=== PATIENT | male | born 1995 | race Caucasian/White ===

== ENCOUNTER 2016-07-07 19:16 | Emergency (ER) | payer BC, OTHER ==
[~2016-07-07] VITALS: Ht 188 cm; Wt 68.3 kg
[~2016-07-07 19:16] MED LIST: ACET-1256 PO; IBUP-1050 PO; INSDGIPEN SC; INSU100I2 SC; MAGN400T6 PO; OXYC1TAB3 PO
[2016-07-07 19:21] VITALS: TEMP 36.7; Ht 188 cm; Wt 68.3 kg
[2016-07-07] MEDS ORDERED: XYLOCAINE 1%/SOD BICARB 20 ML VIAL INFIL STA (21:11)
[2016-07-07 22:32] LABS: BASO % 0.9 %; BASO ABS # 0.06 K/uL (0-0.2); COMPLETE YES; EOS % 3.6 %; HEMATOCRIT 38.8 % (42-52); IG% 0.3 %; LYMPH % 44.8 %; LYMPH ABS # 3.13 K/uL (1.2-3.4); MEAN CELL VOLUME 84.5 fL (80-100); MEAN CORPUSCULAR HGB CONC 34.3 g/dl (32-36); MEAN PLATELET VOLUME 9.7 fL (7.4-10.4); MONO % 11.2 %; NEUT % 39.2 %; PLATELET COUNT 246 K/uL (130-400); RED BLOOD COUNT 4.59 M/uL (4.7-6.1); WHITE BLOOD COUNT 6.99 K/uL (4.8-10.8)
--- NOTE | 2016-07-07 22:45 | DIAGNOSTIC IMAGING REPORT ---
LEFT UPPER EXTREMITY VENOUS DOPPLER HISTORY: Heroin use, suspected abscess. R/o upper extremity DVT COMPARISON STUDY: None. FINDINGS: The left internal jugular vein is patent. There is normal flow within the left subclavian vein. There is normal flow and compressibility within the left axillary, basilic, brachial, radial, ulnar, and visualized cephalic veins. IMPRESSION: No DVT within the left upper extremity. Electronically signed by: Thiago Francis M.D. 07/07/2016 10:43 PM Dictated Date/Time: 07/07/2016 10:43 PM
--- NOTE | 2016-07-07 22:47 | DIAGNOSTIC IMAGING REPORT ---
LEFT UPPER EXTREMITY ULTRASOUND CLINICAL HISTORY: Heroin use, suspected abscess. Left AC. R/o complex abscess COMPARISON STUDY: None. FINDINGS: There is a 2.0 x 1.1 x 1.6 cm complex subcutaneous fluid collection at the left antecubital fossa. There is surrounding hyperemia and increased echogenicity within the fat consistent with inflammatory change. IMPRESSION: A 2.0 x 1.1 x 1.6 cm complex fluid collection within the left antecubital fossa. This is consistent with an abscess. Electronically signed by: Thiago Francis M.D. 07/07/2016 10:45 PM Dictated Date/Time: 07/07/2016 10:44 PM
[2016-07-07 22:48] LABS: BUN/CREATININE RATIO 15.6 (10-20); CALCIUM 9.6 mg/dl (8.5-10.1); CREATININE 0.86 mg/dl (0.60-1.40); POTASSIUM 3.3 mmol/L (3.5-5.1)
[2016-07-07] MEDS ORDERED: AMOXICIL/CLAVU 875MG HOME PACK PO STA (23:35)
[2016-07-07] MEDS ORDERED: AMOXICILLIN/CLAVULANATE TAB 875 MG TAB PO STA (23:35)
--- NOTE | 2016-07-08 00:30 | EMERGENCY ROOM VISIT NOTE ---
History First contact with patient: 20:39 Chief Complaint: OTHER COMPLAINT Stated Complaint: ABSCESS ON LEFT ARM History of Present Illness The patient is a 21 year old male who presents to the Emergency Room via private vehicle with complaints of "abscess on left arm". The patient states that 2 nights ago he was at a friend's house using what he describes as a clean needle and injected 1 bag of heroin into his left antecubital region. He believes he missed the vein. He states that last night and this morning the area became raised, hot and yellow. He rates the pain as an 8/10. He denies any red streaking up his arm. There is pain with movement of the arm in that region. This area has drained somewhat. He admits to injecting a total of 3 or 4 times in this region. He has been using heroin for 6 months. He did feel feverish earlier. He declines any help for his drug use. Tetanus is up-to- date. Review of Systems A complete 10-point Review of Systems was discussed with the patient, with pertinent positives and negatives listed in the History of Present Illness. All remaining Review of Systems questions can be considered negative unless otherwise specified. Past Medical/Surgical History Medical Problems: (1) Contusion of knee, left (2) Contusion of right knee (3) Gastroenteritis (4) Left lower lobe pneumonia (5) Pneumomediastinum (6) Type 1 diabetes Heroin Use Family History Diabetes mellitus High Blood pressure Social History Smoking Status: Never Smoker Alcohol Use: occasionally Drug Use: marijuana Marital Status: single Housing Status: lives with family Occupation Status: student Current/Historical Medications Scheduled Amoxicillin & Pot Clavulanate (Augmentin 875-125 mg), 1 TAB PO BID Insulin Glargine (Lantus Solostar), 20 UNITS SC BID Insulin Lispro (Human) (Humalog Kwikpen), 1 DOSE SC WM Magnesium Oxide (Mag-Ox), 400 MG PO DAILY Scheduled PRN Acetaminophen (Tylenol), 1,000 MG PO Q6 PRN for Pain Ibuprofen (Advil), 400 MG PO Q6 PRN for Pain Oxycodone Immediate Rel Tab (Roxicodone Ir), 1-2 TAB PO Q6 PRN for Pain Allergies Coded Allergies: Azithromycin (Unverified Allergy, Unknown, ., 07/07/16) Cephalosporins (Verified Allergy, Unknown, unknown, 07/07/16) mother Sulfa Antibiotics (Verified Allergy, Unknown, ., 07/07/16) Physical Exam Vital Signs Date Time Temp Pulse Resp B/P Pulse Ox O2 Delivery O2 Flow Rate FiO2 07/08/16 00:46 100 16 115/72 98 07/07/16 23:50 96 16 111/63 99 Room Air 07/07/16 19:21 36.7 132 20 125/80 98 Room Air Physical Exam VITAL SIGNS - Vital signs and nursing notes were reviewed. Afebrile, normotensive, tachycardic at rate of 132, saturating well on room air 98%. GENERAL -21-year-old male appearing his stated age who is in no acute distress. Communicates well with provider and answers questions appropriately. SKIN - overlying the left antecubital fossa there is a 2 cm in diameter raised erythematous region consistent with an abscess. There is no lymphogenic streaking. HEAD - NC/AT. NECK - Neck with FROM. No nuchal rigidity. LUNGS - Chest wall symmetric without accessory muscle use, intercostals retractions, or central cyanosis. Normal vesicular breath sounds CTA B/L. No wheezes, rales, or rhonchi appreciated. CARDIAC - RRR with S1/S2. No murmur, rubs, or gallops appreciated. No signs of infective endocarditis upon auscultation EXTREMITIES - No clubbing or peripheral cyanosis. No pretibial edema present. +3 /5 radial left. +5/5 strength noted in UE/LE bilaterally.Sensory intact to light touch throughout. Patellar reflexes +2/4. Medical Decision & Procedures ER Provider Diagnostic Interpretation: LEFT UPPER EXTREMITY VENOUS DOPPLER HISTORY: Heroin use, suspected abscess. R/o upper extremity DVT COMPARISON STUDY: None. FINDINGS: The left internal jugular vein is patent. There is normal flow within the left subclavian vein. There is normal flow and compressibility within the left axillary, basilic, brachial, radial, ulnar, and visualized cephalic veins. IMPRESSION: No DVT within the left upper extremity. Electronically signed by: Thiago Francis M.D. 07/07/2016 10:43 PM Dictated Date/Time: 07/07/2016 10:43 PM LEFT UPPER EXTREMITY ULTRASOUND CLINICAL HISTORY: Heroin use, suspected abscess. Left AC. R/o complex abscess COMPARISON STUDY: None. FINDINGS: There is a 2.0 x 1.1 x 1.6 cm complex subcutaneous fluid collection at the left antecubital fossa. There is surrounding hyperemia and increased echogenicity within the fat consistent with inflammatory change. IMPRESSION: A 2.0 x 1.1 x 1.6 cm complex fluid collection within the left antecubital fossa. This is consistent with an abscess. Electronically signed by: Thiago Francis M.D. 07/07/2016 10:45 PM Dictated Date/Time: 07/07/2016 10:44 PM Laboratory Results 07/07/16 21:30 Red Blood Count 4.59, Mean Corpuscular Volume 84.5, Mean Corpuscular Hemoglobin 29.0, Mean Corpuscular Hemoglobin Concent 34.3, Mean Platelet Volume 9.7, Neutrophils (%) (Auto) 39.2, Lymphocytes (%) (Auto) 44.8, Monocytes (%) (Auto) 11.2, Eosinophils (%) (Auto) 3.6, Basophils (%) (Auto) 0.9, Neutrophils # (Auto ) 2.75, Lymphocytes # (Auto) 3.13, Monocytes # (Auto) 0.78, Eosinophils # (Auto ) 0.25, Basophils # (Auto) 0.06 07/07/16 21:30 Test 07/07/16 21:30 07/07/16 23:46 White Blood Count 6.99 K/uL (4.8-10.8) Red Blood Count 4.59 M/uL (4.7-6.1) Hemoglobin 13.3 g/dL (14.0-18.0) Hematocrit 38.8 % (42-52) Mean Corpuscular Volume 84.5 fL (80-100) Mean Corpuscular Hemoglobin 29.0 pg (25-34) Mean Corpuscular Hemoglobin Concent 34.3 g/dl (32-36) Platelet Count 246 K/uL (130-400) Mean Platelet Volume 9.7 fL (7.4-10.4) Neutrophils (%) (Auto) 39.2 % Lymphocytes (%) (Auto) 44.8 % Monocytes (%) (Auto) 11.2 % Eosinophils (%) (Auto) 3.6 % Basophils (%) (Auto) 0.9 % Neutrophils # (Auto) 2.75 K/uL (1.4-6.5) Lymphocytes # (Auto) 3.13 K/uL (1.2-3.4) Monocytes # (Auto) 0.78 K/uL (0.11-0.59) Eosinophils # (Auto) 0.25 K/uL (0-0.5) Basophils # (Auto) 0.06 K/uL (0-0.2) RDW Standard Deviation 38.9 fL (36.4-46.3) RDW Coefficient of Variation 12.8 % (11.5-14.5) Immature Granulocyte % (Auto) 0.3 % Immature Granulocyte # (Auto) 0.02 K/uL (0.00-0.02) Anion Gap 12.0 mmol/L (3-11) Est Creatinine Clear Calc Drug Dose 132.4 ml/min Estimated GFR () 144.7 Estimated GFR (Non- 124.8 BUN/Creatinine Ratio 15.6 (10-20) Calcium Level 9.6 mg/dl (8.5-10.1) Total Bilirubin 0.4 mg/dl (0.2-1) Aspartate Amino Transf (AST/SGOT) 100 U/L (15-37) Alanine Aminotransferase (ALT/SGPT) 155 U/L (12-78) Alkaline Phosphatase 148 U/L (45-117) Total Protein 6.9 gm/dl (6.4-8.2) Albumin 3.4 gm/dl (3.4-5.0) Globulin 3.5 gm/dl (2.5-4.0) Albumin/Globulin Ratio 1.0 (0.9-2) Hepatitis B Surface Antigen NEG (NEG) Hepatitis C Antibody PRELIM POS (NEG) Medications Administered Medications (Trade) Dose Ordered Sig/Myron Route Start Time Stop Time Status Last Admin Dose Admin Lidocaine HCl (Buffered Lidocaine 1% Inj) 20 ml ONE STAT INFIL 07/07/16 21:11 07/07/16 21:13 DC 07/07/16 21:39 20 ML Amoxicillin/ Clavulanate Potassium (Augmentin 875MG Home Pack) 1 homepack UD STAT PO 07/07/16 23:35 07/07/16 23:37 DC 07/08/16 00:43 1 HOMEPACK Amoxicillin/ Clavulanate Potassium (Augmentin Tab) 875 mg ONE STAT PO 07/07/16 23:35 07/07/16 23:37 DC 07/08/16 00:43 875 MG Medical Decision Patient was seen and evaluated as above. After obtaining a thorough history and physical examination IV access was obtained and a CBC, CMP, ultrasound of the abscess as well as the upper extremity to rule out DVT, 1% buffered lidocaine as well as a wound care set up. Wound culture was also obtained. No DVT. There is evidence of an abscess in the left AC. Consent was obtained prior to procedure. Patient verbalizes understanding. The area was prepped with Betadine and sterilely draped. An 11 blade scalpel was used to incise the region to create a 1/2 cm incision perpendicular to the left arm. Care was taken to has not disrupt any vital fractures such as vasculature. Purulent material was expressed. This was cultured and sent to lab. Results pending. I did review the patient's previous visit and noted that his liver enzymes were elevated previously and discussed this with him. He was unaware of this. No history of hepatitis. I asked him if he would be interested in hepatitis testing and he said yes. I then ordered an acute hepatitis panel. Results are pending at time of discharge. He was given one Augmentin tablet here and a home pack for home after verifying no allergies to penicillin and he stated that he had taken Augmentin in the past without difficulty despite his listed allergies. 9 more days was sent to his pharmacy for a total of 10.5 days. He is to return in 48 hours for recheck. He is to follow-up with Dr. Valderrama, infectious disease regarding the abscess as well as the potential for hepatitis. He declined any help for his drug abuse but was counseled thoroughly upon cessation. CBC revealed no leukocytosis. Slight anemia noted. CMP revealed low potassium at 3.3. Glucose was elevated at 235 however he noted that he is a type I diabetic and ate prior to coming in here. AST is 100 , ALT is 155 and alkaline phosphatase was 148. At the time of dictation the hepatitis C antibody preliminary was positive. I then spoke with our case reviewer who is to call the patient as well as the infectious disease specialist regarding these findings to the patient follows up as he was told. At this time I believe the patient is stable for discharge. I do not suspect any emergent or surgical nature the patient's complaint at this time. Patient was educated upon worrisome symptoms in which to return, had questions answered prior to discharge and was discharged home in good condition. In evaluation treatment this patient the following differential diagnoses were entertained: Sepsis, abscess, cellulitis, IV drug abuse, hepatitis, among others. Impression Primary Impression: Abscess of left arm Additional Impressions: Hypokalemia Anemia Departure Information Dispostion Home / Self-Care Condition GOOD Prescriptions Amoxicillin & Pot Clavulanate (Augmentin 875-125 mg) 1 Tab Tab 1 TAB PO BID for 9 Days, #18 TAB Prov: Ja Mcgarry PA-C 07/08/16 Referrals Oneil Tinajero M.D. (PCP) Quirino Valderrama MD Patient Instructions A Signature Page, ED Hypocalcemia, [facility] Additional Instructions You were seen in the emergency Department for an abscess on your left arm. You have been prescribed Augmentin to be taken every 12 hours for 10 days. You were given a home pack for the first day and 9 days was sent to pharmacy for pickup. Your glucose was elevated today. Your AST and ALTs liver functions were both elevated as well as well as ALK PHOS. Please call Dr. Valderrama, the infectious disease specialist regarding this. Please call your family doctor to schedule a follow-up regarding today's visit regarding these elevations as well. Your potassium was low today. Please consider eating foods on the list that I gave you and having this level rechecked by your family doctor. Please return in 48 hours for recheck of the wound. Please return to the emergency department with any fevers, chills, worsening pain or redness. Please return to the emergency department with any new/concerning symptoms. Problem Qualifiers Additional Impressions: Anemia Anemia type: unspecified type Qualified Codes: D64.9 - Anemia, unspecified
[2016-07-08] MEDS ORDERED: AMOX875T PO (00:32)
[2016-07-08 00:46] VITALS: BP 115/72; PULSE 100; O2SAT 98
[2016-07-10 21:31] LABS: HEPATITIS C RNA TMA QUAL Detected
== END 2016-07-08 00:51 | disposition home or self-care (01) ==
LOC: C.EDB 19:17
DX: L02.414 Cutaneous abscess of left upper limb (principal); E83.51 Hypocalcemia; D64.9 Anemia, unspecified; F11.20 Opioid dependence, uncomplicated; E10.9 Type 1 diabetes mellitus without complications; Z83.3 Family history of diabetes mellitus; Z82.49 Family history of ischemic heart disease and other diseases of the circulatory system; F12.90 Cannabis use, unspecified, uncomplicated; Z79.4 Long term (current) use of insulin; Z88.1 Allergy status to other antibiotic agents; Z88.2 Allergy status to sulfonamides

== ENCOUNTER → 2016-08-20 | Outpatient (CLI) | payer OTHER ==
[~2016-08-20] MED LIST changes: +CHOL100010 PO; +CLC150 PO; +DOXY100C76 PO; +INSU100I23 SC; +LEVO-366 PO; +NVLGIPEN SC; +TRAM-10 PO
[2016-08-20 11:07] LABS: HEMATOCRIT 39.3 % (42-52); MEAN CELL VOLUME 89.3 fL (80-100); MEAN CORPUSCULAR HGB CONC 33.6 g/dl (32-36); MEAN PLATELET VOLUME 10.2 fL (7.4-10.4); PLATELET COUNT 190 K/uL (130-400); WHITE BLOOD COUNT 4.93 K/uL (4.8-10.8)
[2016-08-20 11:14] LABS: ESTIMATED AVERAGE GLUCOSE 258 mg/dl; HA1C FLAG Normal (Normal)
[2016-08-20 11:16] LABS: INR 0.9 (0.9-1.1); PROTHROMBIN TIME (PATIENT) 10.1 SECONDS (9.0-12.0)
[2016-08-20 11:39] LABS: ALT/SGPT 419 U/L (12-78); AST/SGOT 273 U/L (15-37); BLOOD UREA NITROGEN 10 mg/dl (7-18); BUN/CREATININE RATIO 13.7 (10-20); CALCIUM 8.7 mg/dl (8.5-10.1); CARBON DIOXIDE 28 mmol/L (21-32); CHLORIDE 102 mmol/L (98-107); CREATININE 0.72 mg/dl (0.60-1.40); GLUCOSE 304 mg/dl (70-99); POTASSIUM 3.9 mmol/L (3.5-5.1); SODIUM 141 mmol/L (136-145); URIC ACID 2.2 mg/dl (2.6-7.2)
[2016-08-20 11:50] LABS: ALKALINE PHOSPHATASE 105 U/L (45-117); BETA-HYDROXYBUTYRATE 1.59 mg/dL (0.2-2.81); HEPATITIS B AB NEG
[2016-08-20 13:03] LABS: BASO % 0.4 %; BASO ABS # 0.02 K/uL (0-0.2); COMPLETE YES; EOS % 2.8 %; IG% 0.6 %; LYMPH % 52.3 %; LYMPH ABS # 2.58 K/uL (1.2-3.4); MONO % 6.9 %
[2016-08-25 17:35] LABS: ANTI-CENTROMERE AB <1.0 NEG AI (<1.0 NEG); ANTI-SS-A <1.0 NEG AI (<1.0 NEG); ANTI-SS-B <1.0 NEG AI (<1.0 NEG); DNA ds CRITHIDIA NEGATIVE (NEGATIVE); HEPATITIS C VIRAL RNA BY PCR 490000 IU/ML (<15); HEPATITIS C VIRAL RNA(LOG) PCR 5.69 LOG IU/ML (<1.18); LIVER FIBR APOLIPOPROTEIN A-1 82 mg/dL (94-176); LIVER FIBROS ALPHA-2-MACROGLOB 426 mg/dL (106-279); LIVER FIBROSIS GGT 148 U/L (3-70); MICROSOMAL AB 1 IU/ML (<9); NECROINFLAMMATION ACT GRADE A3; NECROINFLAMMATION ACT SCORE 0.94; Sm Antibody <1.0 NEG AI (<1.0 NEG)
== END | disposition home or self-care (01) ==
LOC: C.LAB1850 09:33
PROVIDERS: ATTEND Internal Medicine Infectious Disease
DX: B18.2 Chronic viral hepatitis C (principal)

== ENCOUNTER → 2016-11-23 | Outpatient (CLI) | payer OTHER ==
[~2016-11-23] MED LIST changes: -OXYC1TAB3 PO
[2016-11-23 16:08] LABS: BENZODIAZEPINE, URINE NEG (NEG); COCAINE,URINE NEG (NEG); PHENCYCLIDINE, URINE NEG (NEG)
== END | disposition home or self-care (01) ==
LOC: C.LAB1850 14:53
PROVIDERS: ATTEND Internal Medicine Infectious Disease
DX: B18.2 Chronic viral hepatitis C (principal)

== ENCOUNTER 2017-01-22 09:52 | Emergency (ER) | payer OTHER ==
[~2017-01-22] VITALS: Ht 188 cm; Wt 83.2 kg
[~2017-01-22 09:52] MED LIST changes: -CHOL100010 PO; -CLC150 PO; -DOXY100C76 PO; -INSU100I23 SC; -LEVO-366 PO; -NVLGIPEN SC; -TRAM-10 PO
[2017-01-22 09:59] VITALS: Ht 188 cm; Wt 83.2 kg
[2017-01-22] MEDS ORDERED: CHOL100010 PO (10:29)
[2017-01-22 10:39] LABS: HEMATOCRIT 44.8 % (42-52); MEAN CELL VOLUME 87.5 fL (80-100); MEAN CORPUSCULAR HEMOGLOBIN 30.9 pg (25-34); MEAN CORPUSCULAR HGB CONC 35.3 g/dl (32-36); MEAN PLATELET VOLUME 9.4 fL (7.4-10.4); PLATELET COUNT 376 K/uL (130-400); RED BLOOD COUNT 5.12 M/uL (4.7-6.1); WHITE BLOOD COUNT 13.23 K/uL (4.8-10.8)
[2017-01-22] MEDS ORDERED: VANCOMYCIN INJ 1,600 MG in SODIUM CHLORIDE 0.9% 500ML 500 ML IV STA (10:51)
[2017-01-22] MEDS ORDERED: SODIUM CHLORIDE 0.9% 1000ML 2,000 ML IV STA (10:51)
[2017-01-22] MEDS ORDERED: LIDOCAINE/EPINEPHRINE 1% 20 ML VIAL INFIL ONE (11:00)
[2017-01-22 11:06] LABS: BASO % 0.8 %; BASO ABS # 0.11 K/uL (0-0.2); COMPLETE YES; EOS % 0.2 %; IG% 4.9 %; LYMPH % 22.1 %; LYMPH ABS # 2.92 K/uL (1.2-3.4); MONO % 8.7 %; NEUT % 63.3 %; VACUOLIZATION 1+
[2017-01-22] MEDS ORDERED: PIPERACILLIN/TAZOBACTAM 4.5 GM/100ML D5W IV STA (11:07)
[2017-01-22 11:12] LABS: ALB/GLOB RATIO 0.9 (0.9-2); ALKALINE PHOSPHATASE 196 U/L (45-117); ALT/SGPT 70 U/L (12-78); BLOOD UREA NITROGEN 15 mg/dl (7-18); BUN/CREATININE RATIO 12.6 (10-20); CALCIUM 10.2 mg/dl (8.5-10.1); CARBON DIOXIDE 20 mmol/L (21-32); CHLORIDE 99 mmol/L (98-107); GLUCOSE 160 mg/dl (70-99); SODIUM 132 mmol/L (136-145)
[2017-01-22] MEDS ORDERED: RANITIDINE HCL 50 MG/100 ML D5W IV STA (11:19)
[2017-01-22] MEDS ORDERED: ONDANSETRON INJ 2 MG/ML 2 ML VIAL IV STA (11:19)
[2017-01-22 12:06] LABS: VEN BLD GAS O2 SATURATION 90.8 %; VEN BLOOD GAS BASE EXCESS -8.5 mmol/L
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
[2017-01-22 14:17] LABS: URINE APPEARANCE CLEAR (CLEAR); URINE BILIRUBIN NEG (NEG); URINE COLOR YELLOW; URINE NITRITE NEG (NEG); URINE PH 5.5 (4.5-7.5); URINE SPECIFIC GRAVITY 1.033 (1.000-1.030); UROBILINOGEN NEG (NEG)
[2017-01-22 14:29] LABS: MANUAL MICROSCOPIC REQUIRED? NO; REVIEW REQ? NO
[2017-01-22 14:37] LABS: BENZODIAZEPINE, URINE NEG (NEG); COCAINE,URINE NEG (NEG); PHENCYCLIDINE, URINE NEG (NEG)
[2017-01-22] MEDS ORDERED: LEVO-366 PO (14:55)
[2017-01-22] MEDS ORDERED: DOXY100C76 PO (14:55)
--- NOTE | 2017-01-22 15:56 | INTERNAL MEDICINE CONSULTATION ---
DATE OF CONSULTATION: 01/22/2017 DATE OF CONSULTATION: 01/22/2017 REASON FOR CONSULTATION: Antibiotic decision for cellulitis. HISTORY OF PRESENT ILLNESS: The patient is a 21-year-old white man with history of type 1 diabetes and a previous history of IV drug abuse. The patient has experienced with many different drugs including heroin, methamphetamine and cocaine in the past. Unfortunately, the patient developed hepatitis C virus secondary to his IV abuse. He stated that his primary care physician is working on referring him into a program to receive treatment for HCV. The patient for the last few days was outside the home. He spent sometimes with his cousin and sometimes in his brother's house. He went home last night. His mom noticed that there is a little bit of cellulitis in his left forearm. The patient stated that he was working in the yard and he inquired scratch on his skin and it appears to be true story because the wound cut is actually on the back of his forearm. The dorsal aspect of the forearm does not appear to be in a place where there is any vein. He denies injecting himself or anything like that. The ED physician and physician metal forger's assistant did drain the wound completely and stated the wound was very superficial, infected and they stated that there was some purulent discharge came out that was sent for culture. Other than that, the patient was not found to have any diabetic ketoacidosis and his vitals have been stable except for slight tachycardia that improved with IV fluids. REVIEW OF SYSTEMS: Denies any headache, double vision, blurry vision. Denies any chest pain or palpitation. Denies any cough, wheezing, shortness of breath. Denies any diarrhea, blood in the stool. Denies any burning sensation in the urine or blood. Rest of the review of systems is negative. PAST MEDICAL HISTORY: As mentioned in HPI. No other past medical history. FAMILY HISTORY: For diabetes mellitus. SOCIAL HISTORY: He does not smoke. Drinks socially. Admits to drug abuse. HOME MEDICATIONS: Insulin Glargine 45 units daily, insulin lispro per sliding scale, also takes magnesium oxide and vitamin D. PHYSICAL EXAMINATION: VITAL SIGNS: Temperature 36.9, heart rate 100, respiration is 12, blood pressure 133/77, pulse ox is 100% on room air. HEAD, EYES, EARS, NOSE, AND THROAT: No jaundice, no pallor, moist mucous membranes. NECK: Supple. HEART: S1, S2 normal. No gallop, rub or murmur. LUNGS: Clear to auscultation bilaterally. Normal chest wall expansion. ABDOMEN: Soft, nontender, nondistended. NEUROLOGIC: Awake, alert, oriented to time, place, and person. Moves all extremities. Sensation intact. Cranial nerves II-XII appear to be intact. His left forearm appears to be slightly erythematous. There is a very small incision about 1 cm and packed with a small piece of gauze. LABORATORY DATA: White blood cell count is 13, hemoglobin is 15.8, platelets 379, BUN is 15, creatinine 1.2. Sodium is 132 and potassium is 4. AST and ALT within normal limits. Total protein is elevated at 9.1. His baseline in our record is only 6. ASSESSMENT: 1. Left forearm cellulitis status post I&D bedside as per ED PA Mrs. Taryn Johnson. Wound was superficial and old but was drained completely. I think the best antibiotic choice for the superficial wound would be levofloxacin with doxycycline for 5 days. The patient can follow up with primary care physician on Tuesday and he was instructed to do stay so. Primary care physician will adjust accordingly if the patient had any problems or got sick can always come back to the ED. 2. Diabetes mellitus type 1. As per mother, he lost his glucometer. They are going to buy one today and mother states she is going to check his blood sugars 3 times a day or 4 times a day and give him his insulin accordingly. He will follow up with the primary care physician on Tuesday and I think that seems to be reasonable. 3. As for his elevated protein, appears to be from dehydration. He did receive IV fluids in the ED and also one of the diseases that can give you this is HIV. He was instructed to check his HIV status and he stated that they will check him prior to starting the HCV program treatment. Thank you for letting us share in the care of Mr. Tijerina. Please let us know if we can be of any further help. Mother was instructed to use probiotic with the antibiotic and she acknowledged that she understood that.
[2017-01-22 16:24] VITALS: BP 115/79; PULSE 97; TEMP 36.9; O2SAT 100
--- NOTE | 2017-01-24 18:57 | Pharmacy Progress Note ---
ED Pharmacist Culture FollowUp Date of Service: Jan 24, 2017. Called patient x2 today regarding abscess culture to inform of MRSA result and to stress the importance of adherence. Voicemail box full. Per Sharon, does not require further attempt to contact as the patient should be taking antibiotics that will cover the infection. No further intervention required at this time.
[2017-01-27 11:28] LABS: COD UR 178 NG/ML (CUTOFF=50); HYDROCOD UR 270 NG/ML (CUTOFF=50); HYDROMOR UR NEGATIVE NG/ML (CUTOFF=50); MORPHINE UR 717 NG/ML (CUTOFF=50); NORHYDROCODONE CONF UR 106 NG/ML (CUTOFF=50); OXYMORPH UR NEGATIVE NG/ML (CUTOFF=50)
== END 2017-01-22 16:25 | disposition home or self-care (01) ==
LOC: C.EDB 09:54 → C.EDC 16:25
DX: L02.414 Cutaneous abscess of left upper limb (principal); L03.114 Cellulitis of left upper limb; F14.10 Cocaine abuse, uncomplicated; F11.10 Opioid abuse, uncomplicated; F15.10 Other stimulant abuse, uncomplicated; E10.9 Type 1 diabetes mellitus without complications; Z87.01 Personal history of pneumonia (recurrent); B18.2 Chronic viral hepatitis C; Z83.3 Family history of diabetes mellitus; F12.10 Cannabis abuse, uncomplicated; Z79.4 Long term (current) use of insulin; Z79.899 Other long term (current) drug therapy

== ENCOUNTER 2017-02-23 09:14 | Emergency (ER) | payer OTHER ==
[~2017-02-23] VITALS: Ht 188 cm; Wt 91.0 kg
[~2017-02-23 09:14] MED LIST changes: -ACET-1256 PO; +CHOL100010 PO; +DOXY100C76 PO; -IBUP-1050 PO; +LEVO-366 PO
[2017-02-23 09:18] VITALS: TEMP 37.1; Ht 188 cm; Wt 91.0 kg
[2017-02-23] MEDS ORDERED: INSU100I23 SC (09:38)
--- NOTE | 2017-02-23 10:12 | DIAGNOSTIC IMAGING REPORT ---
LEFT RIBS UNILATERAL WITH PA CHEST CLINICAL HISTORY: L rib pain COMPARISON STUDY: Chest 02/04/2016. FINDINGS: No acute rib fractures. No pneumothorax. The heart is normal in size. No pleural effusions. The lungs are clear. IMPRESSION: No rib fractures. No pneumothorax. Electronically signed by: Thiago Francis M.D. 02/23/2017 10:11 AM Dictated Date/Time: 02/23/2017 10:07 AM
[2017-02-23] MEDS ORDERED: TRAM-10 PO (10:26)
[2017-02-23 10:51] VITALS: BP 109/64; PULSE 72; O2SAT 98
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
== END 2017-02-23 10:52 | disposition home or self-care (01) ==
LOC: C.EDB 09:16 → C.EDA 10:52
DX: R07.81 Pleurodynia (principal); Y93.16 Activity, rowing, canoeing, kayaking, rafting and tubing; V94.0XXA Hitting object or bottom of body of water due to fall from watercraft, initial encounter; E11.9 Type 2 diabetes mellitus without complications; Z87.01 Personal history of pneumonia (recurrent); Z79.4 Long term (current) use of insulin; Z79.899 Other long term (current) drug therapy; Z72.0 Tobacco use

== ENCOUNTER 2017-02-27 01:39 | Emergency (ER) | payer OTHER ==
[~2017-02-27] VITALS: Ht 188 cm; Wt 89.4 kg
[~2017-02-27 01:39] MED LIST changes: -DOXY100C76 PO; -INSDGIPEN SC; +INSU100I23 SC; -LEVO-366 PO; +TRAM-10 PO
[2017-02-27 01:44] VITALS: TEMP 37.1; Ht 188 cm; Wt 89.4 kg
[2017-02-27] MEDS ORDERED: SODIUM CHLORIDE 0.9% 1000ML 1,000 ML IV STA ×2 (01:58→04:02)
[2017-02-27] MEDS ORDERED: KETOROLAC TROMETHAMINE 30 MG/ML VIAL IV STA ×2 (01:58→04:02)
[2017-02-27] MEDS ORDERED: OPTIRAY 320 IV PRN (02:15)
[2017-02-27 02:24] LABS: BASO % 0.2 %; BASO ABS # 0.03 K/uL (0-0.2); COMPLETE YES; HEMATOCRIT 36.2 % (42-52); IG% 0.8 %; LYMPH % 15.9 %; LYMPH ABS # 2.04 K/uL (1.2-3.4); MEAN CELL VOLUME 87.2 fL (80-100); MEAN CORPUSCULAR HEMOGLOBIN 29.9 pg (25-34); MEAN CORPUSCULAR HGB CONC 34.3 g/dl (32-36); MEAN PLATELET VOLUME 8.9 fL (7.4-10.4); MONO % 13.6 %; NEUT % 68.5 %; PLATELET COUNT 388 K/uL (130-400); RED BLOOD COUNT 4.15 M/uL (4.7-6.1); WHITE BLOOD COUNT 12.87 K/uL (4.8-10.8)
[2017-02-27 02:26] LABS: URINE APPEARANCE CLEAR (CLEAR); URINE BILIRUBIN NEG (NEG); URINE COLOR YELLOW; URINE EPITHELIAL CELL AUTO >30 /lpf (0-5); URINE NITRITE NEG (NEG); URINE PH 5.5 (4.5-7.5); URINE SPECIFIC GRAVITY > 1.045 (1.000-1.030); UROBILINOGEN NEG (NEG)
[2017-02-27 02:38] LABS: MANUAL MICROSCOPIC REQUIRED? NO; REVIEW REQ? YES
[2017-02-27 03:11] LABS: BENZODIAZEPINE, URINE NEG (NEG); COCAINE,URINE NEG (NEG); PHENCYCLIDINE, URINE NEG (NEG)
[2017-02-27 03:12] LABS: BUN/CREATININE RATIO 11.1 (10-20); CALCIUM 9.5 mg/dl (8.5-10.1); CREATININE 0.87 mg/dl (0.60-1.40); POTASSIUM 3.6 mmol/L (3.5-5.1)
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
[2017-02-27 06:07] VITALS: BP 114/67; PULSE 95; O2SAT 100
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
[2017-03-03 13:58] LABS: COD UR 617 NG/ML (CUTOFF=50); HYDROCOD UR NEGATIVE NG/ML (CUTOFF=50); HYDROMOR UR NEGATIVE NG/ML (CUTOFF=50); MORPHINE UR >20000 NG/ML (CUTOFF=50); NORHYDROCODONE CONF UR NEGATIVE NG/ML (CUTOFF=50); OXYMORPH UR NEGATIVE NG/ML (CUTOFF=50)
== END 2017-02-27 06:08 | disposition home or self-care (01) ==
LOC: C.EDB 01:40
DX: S20.212D Contusion of left front wall of thorax, subsequent encounter (principal); E10.65 Type 1 diabetes mellitus with hyperglycemia; W19.XXXD Unspecified fall, subsequent encounter; D64.9 Anemia, unspecified; B18.2 Chronic viral hepatitis C; Z87.01 Personal history of pneumonia (recurrent); F17.210 Nicotine dependence, cigarettes, uncomplicated; F14.10 Cocaine abuse, uncomplicated; F11.10 Opioid abuse, uncomplicated; F12.10 Cannabis abuse, uncomplicated; Z83.3 Family history of diabetes mellitus; Z79.4 Long term (current) use of insulin; Z79.899 Other long term (current) drug therapy

== ENCOUNTER 2017-02-27 08:57 | Inpatient (IN) | payer OTHER ==
[~2017-02-27] VITALS: Ht 188 cm; Wt 90.4 kg
[2017-02-27] MEDS ORDERED: ONDANSETRON INJ 2 MG/ML 2 ML VIAL IV STA (09:42)
[2017-02-27] MEDS ORDERED: MoRPHine SULFATE 10 MG/ML CARP/VIAL IV STA (09:42)
[2017-02-27] MEDS ORDERED: SODIUM CHLORIDE 0.9% 1000ML 1,000 ML IV STA ×2 (09:42→09:50)
[2017-02-27] MEDS ORDERED: VANCOMYCIN INJ 2,250 MG in SODIUM CHLORIDE 0.9% 500ML 500 ML IV STA (09:49)
[2017-02-27 11:00] LABS: BASO % 0.2 %; BASO ABS # 0.02 K/uL (0-0.2); COMPLETE YES; EOS % 1.4 %; IG% 0.5 %; LYMPH % 10.9 %; LYMPH ABS # 1.36 K/uL (1.2-3.4); MEAN CELL VOLUME 89.6 fL (80-100); MEAN CORPUSCULAR HEMOGLOBIN 28.5 pg (25-34); MEAN CORPUSCULAR HGB CONC 31.8 g/dl (32-36); MEAN PLATELET VOLUME 9.2 fL (7.4-10.4); MONO % 14.7 %; NEUT % 72.3 %; PLATELET COUNT 384 K/uL (130-400); RED BLOOD COUNT 4.24 M/uL (4.7-6.1); WHITE BLOOD COUNT 12.49 K/uL (4.8-10.8)
[2017-02-27 11:15] LABS: BLOOD UREA NITROGEN 12 mg/dl (7-18); BUN/CREATININE RATIO 12.8 (10-20); CALCIUM 9.7 mg/dl (8.5-10.1); CARBON DIOXIDE 28 mmol/L (21-32); CHLORIDE 97 mmol/L (98-107); CREATININE 0.91 mg/dl (0.60-1.40); GLUCOSE 333 mg/dl (70-99); POTASSIUM 3.8 mmol/L (3.5-5.1); SODIUM 133 mmol/L (136-145)
[2017-02-27 11:28] LABS: BETA-HYDROXYBUTYRATE 8.22 mg/dL (0.2-2.81)
[2017-02-27 12:00] VITALS: O2SAT 98; BMI 25.6
[2017-02-27] MEDS ORDERED: GLUCOSE 10 TABS/TUBE PO PRN (12:00)
[2017-02-27] MEDS ORDERED: ACETAMINOPHEN IV 100 ML IV PRN (12:00)
[2017-02-27] MEDS ORDERED: GLUCOSE 40% GEL 15 GM TUBE PO PRN (12:00)
[2017-02-27] MEDS ORDERED: GLUCAGON FOR INJ 1 MG VIAL SQ PRN (12:00)
[2017-02-27] MEDS ORDERED: ONDANSETRON INJ 2 MG/ML 2 ML VIAL IV PRN (12:00)
[2017-02-27] MEDS ORDERED: DEXTROSE 50% 50 ML SYR IV PRN (12:00)
[2017-02-27] MEDS ORDERED: VANCOMYCIN INJ 1,000 MG in SODIUM CHLORIDE 0.9% 250ML 250 ML IV SCH (12:02)
[2017-02-27] MEDS: KETOROLAC TROMETHAMINE 30 MG/ML VIAL IV PRN (12:12)
[2017-02-27] MEDS ORDERED: VANCOMYCIN CONSULT ACTIVE PRN (12:15)
--- NOTE | 2017-02-27 14:16 | ECHOCARDIOGRAM REPORT ---
*NOTICE TO RECEIVING REPUBLICAN AGENCY This information is strictly Confidential and protected under [place] law. [place] law prohibits you from making any further disclosure of this information unless further disclosure is expressly permitted by the written consent of the person to whom it pertains or is authorized by law. A general authorization for the release of medical or other information is not sufficient for this purpose. Hospital accepts no responsibility if the information is made available to any other person, INCLUDING THE PATIENT. Interpretation Summary * Name: ANISH SINGH Study Date: 02/27/2017 01:02 PM BP: 138/76 mmHg * Patient Location: C.EDB HR: 116 * : 1995 (M/d/yyyy) Gender: Male Height: 74 in * Age: 22 yrs Ethnicity: CA Weight: 199 lb * Ordering Physician: Matthew Chambers * Referring Physician: Self, Referred * Performed By: Kelly Verdugo RCS * * Reason For Study: IVDA / INCR ESR / ASSESS FOR SBE * BSA: 2.2 m2 * -- Conclusions -- * Left ventricular systolic function is normal. * No regional wall motion abnormalities noted. * Ejection Fraction = 60-65%. * No obvious valvular vegetation. Procedure Details * A complete two-dimensional transthoracic echocardiogram was performed (2D, M-mode, Doppler and color flow Doppler). Left Ventricle * The left ventricle is normal in size. * There is normal left ventricular wall thickness. * Left ventricular systolic function is normal. * Ejection Fraction = 60-65%. * No regional wall motion abnormalities noted. Right Ventricle * The right ventricle is normal size. * The right ventricular systolic function is normal as assessed by tricuspid annular plane systolic excursion (TAPSE) (normal >1.5 cm). Atria * The left atrial size is normal. * Right atrial size is normal. * No ASD detected; PFO is not assessed. Mitral Valve * The mitral valve is normal in structure and function. * There is no vegetation seen on the mitral valve. * There is no mitral valve stenosis. * There is no mitral regurgitation noted. Tricuspid Valve * The tricuspid valve is normal in structure and function. * There is no tricuspid valve vegetation. * There is no tricuspid stenosis. * There is trace tricuspid regurgitation. Aortic Valve * The aortic valve is normal in structure and function. * There is no aortic valvular vegetation. * No hemodynamically significant valvular aortic stenosis. * No aortic regurgitation is present. Pulmonic Valve * The pulmonary valve is not well seen, but the Doppler examination is normal without significant regurgitation or stenosis. Great Vessels * The aortic root is normal size. * The pulmonary artery is not well visualized, but is probably normal size. Pericardium/Pleural * There is no pericardial effusion. Great Vessels * Normal inferior vena cava size and collapsability with sniff indicates a normal right atrial pressure of 3 mmHg MMode 2D Measurements and Calculations IVSd 1.1 cm IVSs 1.5 cm LVIDd 4.7 cm LVIDs 3.0 cm LVPWd 1.0 cm LVPWs 1.5 cm IVS/LVPW 1.0 FS 36.0 % EDV(Teich) 100.5 ml ESV(Teich) 34.5 ml EF(Teich) 65.6 % EDV(cubed) 101.4 ml ESV(cubed) 26.5 ml EF(cubed) 73.8 % % IVS thick 45.4 % % LVPW thick 40.0 % LV mass(C)d 172.6 grams LV mass(C)dI 79.6 grams/m\S\2 LV mass(C)s 155.2 grams LV mass(C)sI 71.6 grams/m\S\2 SV(Teich) 66.0 ml SI(Teich) 30.4 ml/m\S\2 SV(cubed) 74.9 ml SI(cubed) 34.5 ml/m\S\2 Ao root diam 2.9 cm Ao root area 6.7 cm\S\2 LA dimension 3.1 cm LA/Ao 1.1 LVOT diam 2.0 cm LVOT area 3.1 cm\S\2 Doppler Measurements and Calculations PA V2 max 101.2 cm/sec PA max PG 4.1 mmHg
[2017-02-27 14:23] VITALS: BP 113/70; PULSE 104; TEMP 37.1; O2SAT 99
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
[2017-02-27] MEDS ORDERED: LEVOFLOXACIN / D5W 750 MG in PREMIXED IN D5W 150 ML IV SCH (15:00)
[2017-02-27] MEDS: NSS + 20MEQ KCL 1000ML 1,000 ML IV SCH (15:05)
--- NOTE | 2017-02-27 15:08 | Pharmacy Progress Note ---
Pharmacy Antibiotic Consult Date of Service: Feb 27, 2017. Pharmacy Dosing Scope Pharmacy is consulted to initiate VANCOMYCIN IV dosing therapy, order appropriate labs and adjust drug dose/frequency. Subjective The patient is a 22 year old male admitted on Feb 27, 2017 at 12:23. Objective Height (Feet): 6 Height (Inches): 2.00 Weight (Kilograms): 92.800 Lab Results (24hrs): Test 02/27/17 10:12 02/27/17 10:21 02/27/17 14:24 02/27/17 14:54 White Blood Count 12.49 K/uL (4.8-10.8) Red Blood Count 4.24 M/uL (4.7-6.1) Hemoglobin 12.1 g/dL (14.0-18.0) Hematocrit 38.0 % (42-52) Mean Corpuscular Volume 89.6 fL (80-100) Mean Corpuscular Hemoglobin 28.5 pg (25-34) Mean Corpuscular Hemoglobin Concent 31.8 g/dl (32-36) Platelet Count 384 K/uL (130-400) Mean Platelet Volume 9.2 fL (7.4-10.4) Neutrophils (%) (Auto) 72.3 % Lymphocytes (%) (Auto) 10.9 % Monocytes (%) (Auto) 14.7 % Eosinophils (%) (Auto) 1.4 % Basophils (%) (Auto) 0.2 % Neutrophils # (Auto) 9.03 K/uL (1.4-6.5) Lymphocytes # (Auto) 1.36 K/uL (1.2-3.4) Monocytes # (Auto) 1.84 K/uL (0.11-0.59) Eosinophils # (Auto) 0.18 K/uL (0-0.5) Basophils # (Auto) 0.02 K/uL (0-0.2) RDW Standard Deviation 40.5 fL (36.4-46.3) RDW Coefficient of Variation 12.5 % (11.5-14.5) Immature Granulocyte % (Auto) 0.5 % Immature Granulocyte # (Auto) 0.06 K/uL (0.00-0.02) Erythrocyte Sedimentation Rate > 90 mm/hr (0-14) Sodium Level 133 mmol/L (136-145) Potassium Level 3.8 mmol/L (3.5-5.1) Chloride Level 97 mmol/L (98-107) Carbon Dioxide Level 28 mmol/L (21-32) Anion Gap 8.0 mmol/L (3-11) Blood Urea Nitrogen 12 mg/dl (7-18) Creatinine 0.91 mg/dl (0.60-1.40) Est Creatinine Clear Calc Drug Dose 149.4 ml/min Estimated GFR () 139.1 Estimated GFR (Non- 120.0 BUN/Creatinine Ratio 12.8 (10-20) Random Glucose 333 mg/dl (70-99) Calcium Level 9.7 mg/dl (8.5-10.1) Total Creatine Kinase 22 U/L (39-308) Creatine Kinase MB < 0.5 ng/ml (0.5-3.6) Creatine Kinase MB Ratio (0-3.0) Troponin I < 0.015 ng/ml (0-0.045) C-Reactive Protein 21.60 mg/dl (0-0.29) Beta-Hydroxybutyric Acid 8.22 mg/dL (0.2-2.81) Bedside Lactic Acid Venous 0.87 mmol/L (0.90-1.70) Bedside Glucose 266 mg/dl (70-99) Micro Results: * 02/27/17 -- Blood cx x 3 -- pending Recent Pertinent Medications Item Value Date Time Levofloxacin 750 150 ml @ 100 mls/hr 02/27/17 1500 mg/Prmx Q24H/IV Assessment & Plan 22yo male ordered VANCOMYCIN / LEVAQUIN for cellulitis from abdominal and chest wall abscesses s/p recent fall. Renal function is good. VANCOMYCIN: * Loading dose: VANCOMYCIN 2250mg (~24mg/kg) IV X 1 dose then VANCOMYCIN 1750mg (~19mg/kg) IV every 8 hour * Estimated Pk parameters: Vd ~0.7 L/kg Ke ~0.129 t1/2 ~6hrs * Goal trough level estimate: between 15 - 20 mcg/mL. * Will check a trough level prior to the 1800 dose on 02/28/17. Pharmacy will continue to follow and will adjust dose/frequency as necessary. Thank you
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
[2017-02-27] MEDS: INSULIN ASPART 100 UNITS/ML 3 ML PEN SC SCH ×2 (15:30→21:30)
[2017-02-27 16:25] VITALS: BP 125/81; PULSE 104; TEMP 37.1; O2SAT 96
[2017-02-27 16:46] VITALS: O2SAT 96; O2SAT 99
[2017-02-27] MEDS: VANCOMYCIN INJ 1,750 MG in SODIUM CHLORIDE 0.9% 500ML 500 ML IV SCH ×2 (17:00→21:49)
[2017-02-27] MEDS: FAMOTIDINE IV INJ 20 MG in DEXTROSE 5% 100ML 100 ML IV SCH (17:00)
[2017-02-27] MEDS ORDERED: VANCOMYCIN INJ 1,600 MG in SODIUM CHLORIDE 0.9% 500ML 500 ML IV SCH (18:00)
[2017-02-27 19:52] VITALS: BP 126/76; PULSE 123; TEMP 36.4; O2SAT 98
[2017-02-27] MEDS: TRAMADOL HCL 50 MG TAB PO PRN (21:22)
[2017-02-27] MEDS: INSULIN GLARGINE SOLOSTAR 100 UNITS/ML 3 ML PEN SC SCH (21:29)
[2017-02-27 23:30] VITALS: BP 144/75; PULSE 117; TEMP 38.2; O2SAT 98
[2017-02-28] VITALS (13 sets, daily range): BP systolic 124–141; BP diastolic 72–86; PULSE 97–113; TEMP 36.5–38; O2SAT 97–99
[2017-02-28] MEDS: NSS + 20MEQ KCL 1000ML 1,000 ML IV SCH ×3 (03:04→17:03)
[2017-02-28] MEDS: ACETAMINOPHEN 325 MG TAB PO PRN ×2 (06:05)
[2017-02-28] MEDS: VANCOMYCIN INJ 1,750 MG in SODIUM CHLORIDE 0.9% 500ML 500 ML IV SCH ×3 (06:06→21:42)
[2017-02-28 06:35] LABS: BASO % 0.1 %; BASO ABS # 0.01 K/uL (0-0.2); COMPLETE YES; EOS % 0.3 %; HEMATOCRIT 31.8 % (42-52); IG% 0.4 %; LYMPH % 8.3 %; LYMPH ABS # 1.02 K/uL (1.2-3.4); MEAN CELL VOLUME 88.3 fL (80-100); MEAN CORPUSCULAR HEMOGLOBIN 28.3 pg (25-34); MEAN CORPUSCULAR HGB CONC 32.1 g/dl (32-36); MEAN PLATELET VOLUME 8.6 fL (7.4-10.4); NEUT % 75.9 %; PLATELET COUNT 281 K/uL (130-400); WHITE BLOOD COUNT 12.36 K/uL (4.8-10.8)
[2017-02-28 07:00] LABS: ESTIMATED AVERAGE GLUCOSE 240 mg/dl; HA1C FLAG Normal (Normal)
[2017-02-28 07:09] LABS: BLOOD UREA NITROGEN 5 mg/dl (7-18); BUN/CREATININE RATIO 8.8 (10-20); CALCIUM 8.6 mg/dl (8.5-10.1); CARBON DIOXIDE 27 mmol/L (21-32); CHLORIDE 102 mmol/L (98-107); CREATININE 0.59 mg/dl (0.60-1.40); GLUCOSE 127 mg/dl (70-99); MAGNESIUM 1.4 mg/dl (1.8-2.4); POTASSIUM 3.4 mmol/L (3.5-5.1); SODIUM 137 mmol/L (136-145)
[2017-02-28] MEDS ORDERED: POTASSIUM CHLORIDE 20 MEQ TABCR PO STA (07:48)
[2017-02-28] MEDS: INSULIN ASPART 100 UNITS/ML 3 ML PEN SC SCH ×4 (08:07→20:46)
[2017-02-28] MEDS: KETOROLAC TROMETHAMINE 30 MG/ML VIAL IV PRN ×3 (08:13→20:20)
[2017-02-28] MEDS: MAGNESIUM OXIDE 400 MG TAB PO SCH (08:13)
[2017-02-28] MEDS: CHOLECALCIFEROL 1000 INTER.UNIT TAB PO SCH (08:14)
[2017-02-28] MEDS: FAMOTIDINE IV INJ 20 MG in DEXTROSE 5% 100ML 100 ML IV SCH (08:14)
[2017-02-28] MEDS ORDERED: NURSING VERBAL MED ORDER ONE (08:45)
[2017-02-28] MEDS ORDERED: PIPERACILL/TAZOBAC CONSULT ACTIVE PRN (08:45)
[2017-02-28] MEDS: MAGNESIUM SULFATE 1GM / D5W 1 GM in PREMIXED IN D5W 100 ML IV SCH ×3 (09:04→11:37)
[2017-02-28] MEDS: PIPERACILL/TAZOBAC IV 3.375 GM in DEXTROSE 5% 100ML 100 ML IV SCH ×2 (10:06→17:09)
--- NOTE | 2017-02-28 11:25 | Medical Consult ---
Consultation Date of Consultation: Feb 28, 2017. Attending Physician: Jon Juarez MD Reason for Consultation: infected abdominal wall hematoma History of Present Illness 22-year-old male with history of type 1 diabetes, hepatitis-C, prior MRSA infection admitted to the medicine service with infected hematoma. He fell while canoeing approximately 2-3 weeks ago and had a small area of swelling under his left ribs. Prior chest x-rays were normal. Over the weekend he developed increased swelling and pain at the site along with fevers and chills. He had a MRSA abscess on his left arm drained about a month or 2 ago. His most recent A1c was 10. He does have a history of IV drug abuse. He was admitted to the medicine service and surgery was consulted. He did eat breakfast at 7 o'clock this morning. He is currently on IV antibiotics and is feeling slightly better. Past Medical/Surgical History Medical Problems: (1) Abscess of left forearm Status: Acute (2) Chest wall hematoma Status: Acute (3) Chronic Viral Hepatitis C Status: Chronic (4) Endocarditis Status: Acute (5) Hyperglycemia due to type 1 diabetes mellitus Status: Acute (6) IV drug abuse Status: Chronic (7) Left arm cellulitis Status: Acute (8) Rib pain on left side Status: Acute (9) Type 1 diabetes Status: Chronic Family History Diabetes mellitus Social History Smoking Status: Current Every Day Smoker Smokeless Tobacco Use: No Alcohol Use: occasionally Drug Use: cocaine, heroin, marijuana, other Marital Status: single Housing Status: lives with family Occupation Status: unemployed Allergies Coded Allergies: Azithromycin (Verified Allergy, Unknown, ., 02/27/17) Cephalosporins (Verified Allergy, Unknown, unknown, 02/27/17) mother Sulfa Antibiotics (Verified Allergy, Unknown, ., 02/27/17) Home Medications Active Ultram (Tramadol HCl) 50 Mg Tab 1-2 Tab PO Q6H PRN For Initial Treatment Reported Basaglar Kwikpen (Insulin Glargine) 100 Unit/Ml Inj 60 Units SC QPM Vitamin D (Cholecalciferol) 1,000 Unit Tab 1,000 Units PO DAILY Mag-Ox (Magnesium Oxide) 400 Mg Tab 400 Mg PO DAILY Humalog Kwikpen (Insulin Lispro (Human)) 100 Unit/Ml Inj 1 Dose SC WM COVERAGE DIRECTED BY SLIDING SCALE Current Inpatient Medications Current Inpatient Medications Medications (Trade) Dose Ordered Sig/Myron Route Start Time Stop Time Status Last Admin Dose Admin Acetaminophen (Tylenol Tab) 650 mg Q4H PRN PO 02/27/17 12:00 03/29/17 11:59 02/28/17 06:05 650 MG Zolpidem Tartrate (Ambien Tab) 5 mg HSZ PRN PO 02/27/17 12:00 03/29/17 11:59 Cholecalciferol (Vitamin D Tab) 1,000 inter.unit DAILY PO 02/28/17 09:00 03/30/17 08:59 02/28/17 08:14 1,000 INTER.UNIT Insulin Glargine (Lantus Solostar Pen) 60 units QPM SC 02/27/17 21:00 03/29/17 20:59 02/27/17 21:29 60 UNITS Magnesium Oxide (Mag-Ox Tab) 400 mg DAILY PO 02/28/17 09:00 03/30/17 08:59 02/28/17 08:13 400 MG Tramadol HCl (Ultram Tab) 50 mg Q4H PRN PO 02/27/17 12:00 03/29/17 11:59 02/27/17 21:22 50 MG Ondansetron HCl (Zofran Inj) 4 mg Q6H PRN IV 02/27/17 12:00 03/29/17 11:59 Insulin Aspart (novoLOG ASPART) SLIDING SCALE If C... ACHS SC 02/27/17 16:30 03/29/17 16:29 02/28/17 08:07 9 UNITS Glucose (Glucose 40% Gel) UD PRN PO 02/27/17 12:00 03/29/17 11:59 Glucose (Glucose Chew Tab) 1 tabs UD PRN PO 02/27/17 12:00 03/29/17 11:59 Dextrose (Dextrose 50% 50ML Syringe) 50 ml UD PRN IV 02/27/17 12:00 03/29/17 11:59 Glucagon (Glucagon Inj) 1 mg UD PRN SQ 02/27/17 12:00 03/29/17 11:59 Potassium Chloride/Sodium Chloride 1,000 ml @ 150 mls/hr Q6H40M IV 02/27/17 15:00 03/29/17 11:55 02/28/17 03:04 150 MLS/HR Ketorolac Tromethamine (Toradol Inj) 30 mg Q6H PRN IV 02/27/17 12:15 03/04/17 12:14 02/28/17 08:13 30 MG Vancomycin HCl (Consult) 1 ea UD PRN N/A 02/27/17 12:15 03/29/17 12:14 Vancomycin HCl 1750 mg/Sodium Chloride 535 ml @ 200 mls/hr Q8H IV 02/27/17 18:00 03/09/17 09:59 02/28/17 06:06 200 MLS/HR Magnesium Sulfate 1 gm/Prmx 100 ml @ 100 mls/hr Q1H IV 02/28/17 08:30 02/28/17 11:29 02/28/17 10:06 100 MLS/HR Piperacillin Sod/ Tazobactam Sod 3.375 gm/Dextrose 115 ml @ 28.75 mls/ hr Q8H IV 02/28/17 09:00 03/10/17 08:59 02/28/17 10:06 28.75 MLS/HR Piperacillin Sod/ Tazobactam Sod (Consult) 1 UD PRN N/A 02/28/17 08:45 03/30/17 08:44 Famotidine (Pepcid Tab) 20 mg Q12 PO 02/28/17 21:00 03/30/17 20:59 Review of Systems Constitutional: + fever, + chills Eyes: No worsening of vision, No eye pain ENT: No hearing loss, No unusual epistaxis, No nasal symptoms, No sore throat, No tinnitus, No dental problems, No trouble swallowing, No problem reported Respiratory: No cough, No sputum, No wheezing, No shortness of breath, No dyspnea on exertion, No dyspnea at rest, No hemoptysis, No problem reported Cardiovascular: + chest pain, No orthopnea, No PND, No edema, No claudication, No palpitations, No problem reported Abdomen: + pain, No nausea, No vomiting, No diarrhea, No constipation, No GI bleeding, No problem reported Musculoskeletal: No joint pain, No muscle pain, No swelling, No calf pain, No problem reported Genitourinary - Male: No hematuria, No dysuria, No urinary frequency, No urinary urgency, No urinary hesitancy, No urinary retention, No urinary incontinence, No penile discharge, No lesions, No impotence, No problem reported Neurologic: No memory loss, No paralysis, No weakness, No numbness/tingling, No vertigo, No balance problems, No problem reported Psychiatric: No depression symptoms, No anhedonism, No anxiety, No insomnia, No substance abuse, No problem reported Endocrine: No fatigue, No excessive thirst, No excessive urination, No problem reported Hematologic / Lymphatic: No abnormal bleeding/bruising, No clotting problems, No swollen lymph nodes, No night sweats, No problem reported Integumentary: No rash, No itch, No new/changing skin lesions, No color change , No bleeding, No problem reported Physical Exam Date Time Temp Pulse Resp B/P (MAP) Pulse Ox O2 Delivery O2 Flow Rate FiO2 02/28/17 08:24 36.5 111 18 136/72 (93) 97 Room Air 02/28/17 05:30 38.0 02/28/17 04:00 Room Air 02/28/17 03:30 37.9 112 18 140/80 (100) 98 Room Air 02/28/17 01:39 37.4 02/27/17 23:59 Room Air 02/27/17 23:30 38.2 117 18 144/75 (98) 98 Room Air 02/27/17 20:00 Room Air 02/27/17 19:52 36.4 123 16 126/76 (93) 98 Room Air 02/27/17 16:46 96 Room Air 02/27/17 16:46 99 Room Air 02/27/17 16:25 37.1 104 16 125/81 (96) 96 Room Air 02/27/17 14:23 37.1 104 16 113/70 (84) 99 Room Air 02/27/17 13:52 112 27 138/70 97 Room Air 02/27/17 13:24 113 30 120/66 96 Room Air 02/27/17 13:00 113 27 93/56 96 Room Air 02/27/17 12:02 113 30 138/76 98 Room Air 02/27/17 12:00 98 Room Air 02/27/17 11:04 112 02/27/17 11:04 112 27 134/83 98 Room Air General Appearance: WD/WN, + mild distress, + thin Head: normocephalic, atraumatic Eyes: normal inspection, PERRL, EOMI ENT: normal ENT inspection, hearing grossly normal Neck: supple, no adenopathy Respiratory/Chest: lungs clear, normal breath sounds, no respiratory distress, no accessory muscle use, + pertinent finding (Tender over left chest/abdominal wall hematoma) Cardiovascular: regular rate, rhythm, no edema, no gallop, no JVD Abdomen/GI: normal bowel sounds, soft, no organomegaly, no pulsatile mass, + pertinent finding (Tender over left chest/abdominal wall hematoma. No overlying erythema, nonpulsatile. 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 Left-sided pain. COMPARISON STUDY: Abdominal series February 27, 2017. TECHNIQUE: Following IV administration of 95 mL of Optiray-320, axial images of the abdomen and pelvis were obtained from the lung bases to the proximal femurs. Images were reviewed in the axial, sagittal, and coronal planes. IV contrast was administered without complication. A dose lowering technique was utilized adhering to the principles of ALARA. FINDINGS: Note is made of a 6.4 x 3.5 cm left upper abdominal wall/anterior inferior chest wall fluid collection with moderate adjacent infiltration. This fluid collection is intramuscular in location. In addition, there is a 2.5 cm fluid collection within the right obturator internus muscle with asymmetric enlargement of this muscle. No additional fluid collections are present. The liver, adrenal glands, kidneys and pancreas are normal. Mild splenomegaly is noted. No hemoperitoneum or pneumoperitoneum is present. No acute pelvic or lumbar spine fractures are identified. IMPRESSION: 1. 6.4 x 3.5 cm left upper abdominal wall/anterior inferior chest wall fluid collection with moderate adjacent infiltration. This fluid collection is likely intramuscular in location. While this could reflect a hematoma given the history of trauma, associated infiltration raises the possibility of an abscess. 2. 2.5 cm right obturator internus intramuscular fluid collection. Overall, the findings favor multifocal abscesses. Correlation with clinical evidence for an infectious process is recommended. Findings discussed with Dr. Damon at time of dictation. Electronically signed by: Bladimir Carrero M.D. 02/27/2017 8:03 AM Dictated Date/Time: 02/27/2017 7:54 AM Last 24 Hours Test 02/27/17 14:24 02/27/17 14:54 02/27/17 16:59 02/27/17 21:11 Bedside Glucose 266 mg/dl 274 mg/dl 273 mg/dl Estimated Average Glucose 240 mg/dl Hemoglobin A1c 10.0 % Test 02/28/17 06:11 02/28/17 06:37 White Blood Count 12.36 K/uL Red Blood Count 3.60 M/uL Hemoglobin 10.2 g/dL Hematocrit 31.8 % Mean Corpuscular Volume 88.3 fL Mean Corpuscular Hemoglobin 28.3 pg Mean Corpuscular Hemoglobin Concent 32.1 g/dl Platelet Count 281 K/uL Mean Platelet Volume 8.6 fL Neutrophils (%) (Auto) 75.9 % Lymphocytes (%) (Auto) 8.3 % Monocytes (%) (Auto) 15.0 % Eosinophils (%) (Auto) 0.3 % Basophils (%) (Auto) 0.1 % Neutrophils # (Auto) 9.39 K/uL Lymphocytes # (Auto) 1.02 K/uL Monocytes # (Auto) 1.85 K/uL Eosinophils # (Auto) 0.04 K/uL Basophils # (Auto) 0.01 K/uL RDW Standard Deviation 40.1 fL RDW Coefficient of Variation 12.3 % Immature Granulocyte % (Auto) 0.4 % Immature Granulocyte # (Auto) 0.05 K/uL Sodium Level 137 mmol/L Potassium Level 3.4 mmol/L Chloride Level 102 mmol/L Carbon Dioxide Level 27 mmol/L Anion Gap 8.0 mmol/L Blood Urea Nitrogen 5 mg/dl Creatinine 0.59 mg/dl Est Creatinine Clear Calc Drug Dose 230.4 ml/min Estimated GFR () > 150.0 Estimated GFR (Non- 144.7 BUN/Creatinine Ratio 8.8 Random Glucose 127 mg/dl Calcium Level 8.6 mg/dl Magnesium Level 1.4 mg/dl Bedside Glucose 133 mg/dl Assessment & Plan 1. Abdominal wall abscess 2. Possible intramuscular pelvic abscess 3. Type 1 diabetes poorly controlled 4. Hepatitis-C 5. History of MRSA infection A/P: 22-year-old male with a likely left chest/abdominal wall hematoma that has become infected. He does not have any overlying cellulitis nor any signs or symptoms of necrotizing soft tissue infection. He does have history of MRSA abscess. Plan for incision and drainage of left abdominal wall abscess in the OR today. Patient ate breakfast at 7:00 so we will delay surgery until 15:00 as he is currently stable. The risks of surgery were discussed to include but are not limited to bleeding, infection, need for future or more extensive surgery, failure to treat underlying infectious process, pain, scar, and the risks of anesthesia. Regarding the possible intramuscular pelvic abscess, this is less than 3 centimeters in size and therefore would be best treated with IV antibiotics with follow-up CT in a few weeks to assess resolution. If he continues to show signs of systemic infection after drainage of the abdominal wall abscess, then he may need evaluation for percutaneous drainage by Interventional Radiology. Consider Infectious Disease consult given his history of IV drug abuse, multiple recent infections, evaluate for endocarditis continue with IV broad-spectrum antibiotics Patient may return to regular diet after the surgery Patient will remain on the Medicine service after surgery for continued care of his multiple medical problems General surgery will continue to follow, please call with questions or concerns all questions were answered, the patient expressed understanding and agreed to proceed with surgery as planned Lindsay Virk DO [phone]
[2017-02-28] MEDS ORDERED: BUPIVACAINE/EPINEPHRINE 0.5% MPF 1:200,000 10 ML VIAL ONE (14:34)
[2017-02-28] MEDS ORDERED: LIDOCAINE HCL 2% 2 ML VIAL (20MG/ML) ONE (14:36)
[2017-02-28] MEDS ORDERED: FENTANYL CITRATE INJ 50 MCG/1 ML 2 ML VIAL ONE ×4 (14:36→16:20)
[2017-02-28] MEDS ORDERED: PROPOFOL IV EMULSION 10 MG/ML 20 ML VIAL IV ONE (14:36)
[2017-02-28] MEDS ORDERED: FENTANYL CITRATE INJ 50 MCG/1 ML 2 ML VIAL IV PRN (14:45)
[2017-02-28] MEDS ORDERED: ONDANSETRON INJ 2 MG/ML 2 ML VIAL IV PRN (14:45)
[2017-02-28] MEDS ORDERED: ATROPINE SULFATE 0.1 MG/ML 5ML SYR IV PRN (14:45)
[2017-02-28] MEDS ORDERED: EpHEDrine SULFATE INJ 50 MG/ML AMP IV PRN (14:45)
[2017-02-28] MEDS ORDERED: BACITRACIN 50000 UNIT VIAL ONE (14:56)
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
--- NOTE | 2017-02-28 16:05 | [facility] Post Operative Brief Note ---
Immediate Operative Summary Operative Date Feb 28, 2017. Pre-Operative Diagnosis Left Chest Wall Abcess Post-Operative Diagnosis same Procedure(s) Performed Incision and Drainage Left Abdominal Wall Abcess Surgeon Dr. Virk Brick Loader Surgeon(s) Alice Ware, MS3 Estimated Blood Loss 5 ML Findings abscess deep to fascia, ~50cc milky, purulent drainage, cultures sent, muscle disrupted but no evidence of NSTI. Packed with kerlex gauze. Specimens microbiology 1. left abdominal wall abcess Anesthesia General Complication(s) None Disposition Surgical ICU
--- NOTE | 2017-02-28 16:16 | Anesthesiology Progress Note ---
Anesthesia Post Op Note Date & Time Feb 28, 2017 at 16:16 Vital Signs Vital Signs Past 12 Hours Date Time Temp Pulse Resp B/P (MAP) Pulse Ox O2 Delivery O2 Flow Rate FiO2 02/28/17 16:10 104 22 130/80 100 Oxymask 10 02/28/17 16:02 36.8 110 22 125/72 100 Oxymask 10 02/28/17 12:00 Room Air 02/28/17 11:37 36.8 97 20 124/78 (93) 98 Room Air 02/28/17 08:24 36.5 111 18 136/72 (93) 97 Room Air 02/28/17 08:00 Room Air 02/28/17 05:30 38.0 Notes Mental Status: alert / awake / arousable, participated in evaluation Pt Amnestic to Procedure: Yes Nausea / Vomiting: adequately controlled Pain: adequately controlled Airway Patency, RR, SpO2: stable & adequate BP & HR: stable & adequate Hydration State: stable & adequate Anesthetic Complications: no major complications apparent
--- NOTE | 2017-02-28 16:21 | [facility] Operative Report ---
Operative Report Operative Date Feb 28, 2017. Pre-Operative Diagnosis Left Chest Wall Abcess Post-Operative Diagnosis Left abdominal/chest wall subfascial abscess Procedure(s) Performed Incision and drainage of left abdominal/chest wall subfascial abscess Surgeon Dr. Virk Medical Secretary Receptionist Surgeon(s) Alice Ware, MS3 Estimated Blood Loss 5 ML Findings abscess deep to fascia, ~50cc milky, purulent drainage, cultures sent, muscle disrupted but no evidence of NSTI. Packed with kerlex gauze. Specimens microbiology 1. left abdominal wall abcess Drains None Anesthesia General Complication(s) None Disposition Surgical ICU Indications 22-year-old male with poorly controlled type 1 diabetes, history of IV drug abuse, hepatitis-C, and recent MRSA abscess of the left arm admitted with likely infected left chest/abdominal wall hematoma. He was admitted to the medicine service yesterday placed on antibiotics, surgery was consulted this morning. Plan for incision and drainage of left chest/abdominal wall abscess. The risks of the procedure were discussed, all questions were answered, and the patient agreed to proceed with surgery as planned. Description of Procedure Patient was appropriately identified, consented, and taken to the operating room where he was placed in the supine position. SCDs and safety belt were placed. Anesthesia was induced. The patient was receiving broad-spectrum IV antibiotics on the floor. The left chest and abdomen were prepped and draped in the standard sterile fashion. A surgical time-out was performed and all parties were in agreement as to the correct patient and procedure to be performed and we continued as planned. A transversely oriented elliptical incision was made in the skin and measured 6 centimeters wide by 3 centimeters long. This was deepened down to the fascia and the skin and subcutaneous tissue was excised. An 18 gauge needle was then used to localize the subfascial abscess. It returned a milky purulent discharge. This was sent for cultures. The fascia was then incised and approximately 50 cc of milky purulent drainage was suctioned. Loculations were broken with blunt dissection. The muscles appeared to be disrupted and and were oozing consistent with the prior hematoma. There was a small amount of old blood and clot present. The cavity measured 11 centimeters by 10 centimeters and was approximately 3 centimeters deep. The the ribs were exposed and comprised the deep boundary of abscess cavity. The wound was generously irrigated with over a liter of saline. Hemostasis was achieved within the wound though there was still some oozy areas of the muscle belly. The fascial layers were intact and there was no evidence of any type of necrotizing soft tissue infection. The wound was packed with moist and Kerlix gauze. 4x4s, an ABD pad , and Medipore tape were applied as the dressing. The patient was extubated in the operating room and taken to the PACU where he recovered without apparent incident. All sponge, needle, instrument counts were correct at the conclusion of the procedure. Patient tolerated the procedure without incident. I attest to the content of the Intraoperative Record and any orders documented therein. Any exceptions are noted below.
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
[2017-02-28] MEDS ORDERED: VANCOMYCIN TROUGH SCH ×2 (17:30→21:30)
[2017-02-28] MEDS: TRAMADOL HCL 50 MG TAB PO PRN (18:21)
[2017-02-28] MEDS: FAMOTIDINE 20 MG TAB PO SCH (20:19)
[2017-02-28] MEDS: INSULIN GLARGINE SOLOSTAR 100 UNITS/ML 3 ML PEN SC SCH (20:47)
[2017-03-01] VITALS (8 sets, daily range): BP systolic 115–123; BP diastolic 69–84; PULSE 91–103; TEMP 36.8–38.6; O2SAT 97–100; BMI 26.7
[2017-03-01] MEDS: ZOLPIDEM TARTRATE 5 MG TAB PO PRN (00:03)
[2017-03-01] MEDS: PIPERACILL/TAZOBAC IV 3.375 GM in DEXTROSE 5% 100ML 100 ML IV SCH ×3 (00:03→16:25)
[2017-03-01] MEDS: TRAMADOL HCL 50 MG TAB PO PRN ×2 (00:04→11:23)
[2017-03-01] MEDS ORDERED: INSULIN ASPART 100 UNITS/ML 3 ML PEN SC STA (00:05)
[2017-03-01] MEDS: NSS + 20MEQ KCL 1000ML 1,000 ML IV SCH ×4 (00:06→13:53)
[2017-03-01] MEDS ORDERED: VANCOMYCIN TROUGH SCH (01:30)
[2017-03-01] MEDS: VANCOMYCIN INJ 1,750 MG in SODIUM CHLORIDE 0.9% 500ML 500 ML IV SCH (05:46)
[2017-03-01 06:03] LABS: BASO % 0.2 %; BASO ABS # 0.02 K/uL (0-0.2); EOS % 2.9 %; IG% 0.6 %; LYMPH % 17.5 %; MEAN CELL VOLUME 88.2 fL (80-100); MEAN CORPUSCULAR HEMOGLOBIN 29.1 pg (25-34); MEAN PLATELET VOLUME 8.6 fL (7.4-10.4); MONO % 10.9 %; NEUT % 67.9 %; PLATELET COUNT 239 K/uL (130-400); RED BLOOD COUNT 3.06 M/uL (4.7-6.1); WHITE BLOOD COUNT 9.69 K/uL (4.8-10.8)
[2017-03-01 06:28] LABS: BUN/CREATININE RATIO 7.6 (10-20); CREATININE 1.7 mg/dl (0.60-1.40); MAGNESIUM 2.1 mg/dl (1.8-2.4); POTASSIUM 3.7 mmol/L (3.5-5.1)
[2017-03-01 06:48] LABS: COMPLETE YES; DOHLE BODIES 1+; HYPOCHROMIA PRESENT; TOXIC GRANULATION 1+
[2017-03-01] MEDS: INSULIN ASPART 100 UNITS/ML 3 ML PEN SC SCH ×4 (07:59→22:02)
[2017-03-01] MEDS: KETOROLAC TROMETHAMINE 30 MG/ML VIAL IV PRN (08:24)
[2017-03-01 08:44] LABS: URINE APPEARANCE CLEAR (CLEAR); URINE BILIRUBIN NEG (NEG); URINE COLOR YELLOW; URINE NITRITE NEG (NEG); URINE SPECIFIC GRAVITY 1.016 (1.000-1.030); UROBILINOGEN NEG (NEG)
[2017-03-01 08:47] LABS: MANUAL MICROSCOPIC REQUIRED? NO; REVIEW REQ? YES
--- NOTE | 2017-03-01 09:50 | Infectious Disease Progress Nt ---
Progress Note Date of Service Mar 01, 2017. Subjective Pt evaluation today including: conversation w/ patient, conversation w/ family , physical exam, chart review, lab review, review of studies, conversation w/ weight loss sales consultant, review of inpatient medication list S/P drainage of subfascial hematoma/abscess of left upper abdominal wall/ lower chest wall. Expected post op discomfort. Cultures growing Staph aureus. Remains afebrile. Tolerating Abx. All Other Systems: Reviewed and Negative Medications Current Inpatient Medications Medications (Trade) Dose Ordered Sig/Myron Route Start Time Stop Time Status Last Admin Dose Admin Acetaminophen (Tylenol Tab) 650 mg Q4H PRN PO 02/27/17 12:00 03/29/17 11:59 02/28/17 06:05 650 MG Zolpidem Tartrate (Ambien Tab) 5 mg HSZ PRN PO 02/27/17 12:00 03/29/17 11:59 03/01/17 00:03 5 MG Cholecalciferol (Vitamin D Tab) 1,000 inter.unit DAILY PO 02/28/17 09:00 03/30/17 08:59 02/28/17 08:14 1,000 INTER.UNIT Insulin Glargine (Lantus Solostar Pen) 60 units QPM SC 02/27/17 21:00 03/29/17 20:59 02/28/17 20:47 60 UNITS Magnesium Oxide (Mag-Ox Tab) 400 mg DAILY PO 02/28/17 09:00 03/30/17 08:59 02/28/17 08:13 400 MG Tramadol HCl (Ultram Tab) 50 mg Q4H PRN PO 02/27/17 12:00 03/29/17 11:59 03/01/17 00:04 50 MG Ondansetron HCl (Zofran Inj) 4 mg Q6H PRN IV 02/27/17 12:00 03/29/17 11:59 Insulin Aspart (novoLOG ASPART) SLIDING SCALE If C... ACHS SC 02/27/17 16:30 03/29/17 16:29 03/01/17 07:59 12 UNITS Glucose (Glucose 40% Gel) UD PRN PO 02/27/17 12:00 03/29/17 11:59 Glucose (Glucose Chew Tab) 1 tabs UD PRN PO 02/27/17 12:00 03/29/17 11:59 Dextrose (Dextrose 50% 50ML Syringe) 50 ml UD PRN IV 02/27/17 12:00 03/29/17 11:59 Glucagon (Glucagon Inj) 1 mg UD PRN SQ 02/27/17 12:00 03/29/17 11:59 Potassium Chloride/Sodium Chloride 1,000 ml @ 150 mls/hr Q6H40M IV 02/27/17 15:00 03/29/17 11:55 03/01/17 05:46 150 MLS/HR Ketorolac Tromethamine (Toradol Inj) 30 mg Q6H PRN IV 02/27/17 12:15 03/04/17 12:14 03/01/17 08:24 30 MG Vancomycin HCl (Consult) 1 ea UD PRN N/A 02/27/17 12:15 03/29/17 12:14 Vancomycin HCl 1750 mg/Sodium Chloride 535 ml @ 200 mls/hr Q8H IV 02/27/17 18:00 03/09/17 09:59 03/01/17 05:46 200 MLS/HR Piperacillin Sod/ Tazobactam Sod 3.375 gm/Dextrose 115 ml @ 28.75 mls/ hr Q8H IV 02/28/17 09:00 03/10/17 08:59 03/01/17 00:03 28.75 MLS/HR Piperacillin Sod/ Tazobactam Sod (Consult) 1 ea UD PRN N/A 02/28/17 08:45 03/30/17 08:44 Famotidine (Pepcid Tab) 20 mg Q12 PO 02/28/17 21:00 03/30/17 20:59 02/28/17 20:19 20 MG Objective Vital Signs Date Time Temp Pulse Resp B/P (MAP) Pulse Ox O2 Delivery O2 Flow Rate FiO2 03/01/17 08:44 97 Room Air 03/01/17 08:04 36.8 103 14 123/84 (97) 97 Room Air 03/01/17 04:00 98 Room Air 03/01/17 03:30 36.8 95 18 117/69 (85) 97 Room Air 02/28/17 23:59 98 Room Air 02/28/17 23:45 37.0 102 20 127/81 (96) 98 Room Air 02/28/17 20:00 Room Air 02/28/17 18:59 36.7 113 14 141/86 (104) 97 Room Air 02/28/17 18:15 36.7 103 16 134/76 (95) 99 Nasal Cannula 2.0 02/28/17 17:45 36.6 102 18 138/80 (99) 99 Nasal Cannula 2.0 02/28/17 17:15 36.7 101 18 133/83 (100) 98 Nasal Cannula 2.0 02/28/17 17:00 103 18 128/78 (95) 97 Nasal Cannula 2.0 02/28/17 16:50 36.9 102 16 135/78 (97) 99 Room Air 2.0 02/28/17 16:40 36.9 104 20 132/77 98 Nasal Cannula 2 02/28/17 16:30 104 20 134/79 100 Nasal Cannula 2 02/28/17 16:20 104 20 132/79 100 Oxymask 5 02/28/17 16:10 104 22 130/80 100 Oxymask 10 02/28/17 16:02 36.8 110 22 125/72 100 Oxymask 10 02/28/17 12:00 Room Air 02/28/17 11:37 36.8 97 20 124/78 (93) 98 Room Air Physical Exam General Appearance: WD/WN, no apparent distress Eyes: normal inspection, sclerae normal ENT: normal ENT inspection, hearing grossly normal, pharynx normal Neck: supple, no adenopathy, trachea midline Respiratory/Chest: lungs clear, normal breath sounds, no respiratory distress Cardiovascular: regular rate, rhythm, no gallop, no murmur Abdomen: normal bowel sounds, soft, no organomegaly, + tenderness (around incision) Extremities: non-tender, no calf tenderness Neurologic/Psychiatric: alert, oriented x 3 Skin: normal color, no rash Lymphatic: no adenopathy Laboratory Results RUN DATE: 03/01/17 [facility] LAB PAGE 1 RUN TIME: 075 Specimen Inquiry PATIENT: ANISH SINGH LOC: [facility] U # : [id number] AGE/SX: 22/M ROOM: E208 REG : 02/27/[address]: Jon Juarez MD : 1995 BED: 1 DIS : STATUS: ADM IN TLOC: SPEC #: [id number] TINO: 02/28/17-UNK STATUS: RES REQ #: [id number] RECD: 02/28/[address]: Jon Juarez MD SOURCE: ABSCESS ENTR: 02/28/17 [facility] DR: Quirino Valderrama MD [facility]: Nino Angela DO Pasquariello, Rick D M.D. Qiu, Juan, M.D. ORDERED: AER/ANKUR CULTSMR Procedure Result Verified Site GRAM STAIN Final 03/01/17 RESULT MANY WBCs SEEN MANY GRAM POSITIVE COCCI OR AER/ANKUR CULT Preliminary 03/01/17 Organism 1 STAPHYLOCOCCUS AUREUS QUANITY MANY SENS SENSITIVITY TO FOLLOW Last 24 Hours Test 02/28/17 11:18 02/28/17 16:18 02/28/17 16:59 02/28/17 20:27 Bedside Glucose 217 mg/dl 225 mg/dl 251 mg/dl 439 mg/dl Test 02/28/17 20:28 02/28/17 21:21 02/28/17 23:48 03/01/17 05:26 Bedside Glucose 476 mg/dl 369 mg/dl Vancomycin Level Trough 14.9 mcg/ml White Blood Count 9.69 K/uL Red Blood Count 3.06 M/uL Hemoglobin 8.9 g/dL Hematocrit 27.0 % Mean Corpuscular Volume 88.2 fL Mean Corpuscular Hemoglobin 29.1 pg Mean Corpuscular Hemoglobin Concent 33.0 g/dl Platelet Count 239 K/uL Mean Platelet Volume 8.6 fL Neutrophils (%) (Auto) 67.9 % Lymphocytes (%) (Auto) 17.5 % Monocytes (%) (Auto) 10.9 % Eosinophils (%) (Auto) 2.9 % Basophils (%) (Auto) 0.2 % Neutrophils # (Auto) 6.57 K/uL Lymphocytes # (Auto) 1.70 K/uL Monocytes # (Auto) 1.06 K/uL Eosinophils # (Auto) 0.28 K/uL Basophils # (Auto) 0.02 K/uL RDW Standard Deviation 41.1 fL RDW Coefficient of Variation 12.8 % Immature Granulocyte % (Auto) 0.6 % Immature Granulocyte # (Auto) 0.06 K/uL Toxic Granulation 1+ Dohle Bodies 1+ Hypochromasia PRESENT Sodium Level 138 mmol/L Potassium Level 3.7 mmol/L Chloride Level 106 mmol/L Carbon Dioxide Level 26 mmol/L Anion Gap 6.0 mmol/L Blood Urea Nitrogen 13 mg/dl Creatinine 1.70 mg/dl Est Creatinine Clear Calc Drug Dose 80.0 ml/min Estimated GFR () 65.4 Estimated GFR (Non- 56.4 BUN/Creatinine Ratio 7.6 Random Glucose 246 mg/dl Calcium Level 8.0 mg/dl Magnesium Level 2.1 mg/dl Test 03/01/17 06:54 03/01/17 08:00 Bedside Glucose 202 mg/dl Urine Color YELLOW Urine Appearance CLEAR Urine pH 5.0 Urine Specific [place] 1.016 Urine Protein TRACE Urine Glucose (UA) NEG Urine Ketones NEG Urine Occult Blood NEG Urine Nitrite NEG Urine Bilirubin NEG Urine Urobilinogen NEG Urine Leukocyte Esterase NEG Urine WBC (Auto) 1-5 /hpf Urine RBC (Auto) 0-4 /hpf Urine Hyaline Casts (Auto) 1-5 /lpf Urine Epithelial Cells (Auto) 5-10 /lpf Urine Bacteria (Auto) NEG Urine Crystals AMORPHOUS SEDIMENT Urine Yeast (Auto) Assessment and Plan 22-year-old male with history of IV drug abuse as well as prior MRSA infection now presents with left chest wall and upper abdominal wall abscess as well as small intrapelvic abscess. Patient now s/p surgical drainage with culutures growing S. aureus. Likely this will be MRSA. Will adjust Abx once final cultures and sensitivities available.
[2017-03-01] MEDS: FAMOTIDINE 20 MG TAB PO SCH ×2 (10:10→21:59)
[2017-03-01] MEDS: CHOLECALCIFEROL 1000 INTER.UNIT TAB PO SCH (10:10)
[2017-03-01] MEDS: MAGNESIUM OXIDE 400 MG TAB PO SCH (10:11)
--- NOTE | 2017-03-01 11:03 | Pharmacy Progress Note ---
Pharmacy Abx Dose Short Note Date of Service Mar 01, 2017. Assessment & Plan Assessment * Mr Tijerina is a 22 year old male receiving Vancomycin/Zosyn IV for treatment of abdominal/chest wall abscesses. * PMH is significant for chronic Hep C, Type 1 diabetes, hx of IVDA, hx of MRSA , recent fall. * Day #3 of antimicrobial therapy. Plan Vancomycin * Trough level of 14.9 mcg/mL is therapeutic * Continue dose of Vanc 1750 mg IV every 8 hours * Goal trough level: 15 to 20 mcg/mL * Will re-evaluate in ~48 hours. Trough level ordered for: 03/03 prior to the dose at 0600. Zosyn 3.375gm IV q8h Pharmacy will continue to follow and will adjust dose/frequency as necessary. Thank you.
--- NOTE | 2017-03-01 11:39 | Surgery Progress Note ---
Surgery Progress Note Date of Service Mar 01, 2017. Subjective Post OP Day: 1 22 year old male with IDDM, Hep C, h/o MRSA, h/o IVDA, status post I&D left lower chest/abdominal wall inframuscular abscess. Overall doing well, area is tender, no fevers. He feels better after drainage but the pain is worse at site. Objective Vital Signs: Date Time Temp Pulse Resp B/P (MAP) Pulse Ox O2 Delivery O2 Flow Rate FiO2 03/01/17 11:07 38.6 97 26 119/72 (88) 98 Room Air 03/01/17 08:44 97 Room Air 03/01/17 08:04 36.8 103 14 123/84 (97) 97 Room Air 03/01/17 08:00 97 Room Air 03/01/17 04:00 98 Room Air 03/01/17 03:30 36.8 95 18 117/69 (85) 97 Room Air 02/28/17 23:59 98 Room Air 02/28/17 23:45 37.0 102 20 127/81 (96) 98 Room Air 02/28/17 20:00 Room Air 02/28/17 18:59 36.7 113 14 141/86 (104) 97 Room Air 02/28/17 18:15 36.7 103 16 134/76 (95) 99 Nasal Cannula 2.0 02/28/17 17:45 36.6 102 18 138/80 (99) 99 Nasal Cannula 2.0 02/28/17 17:15 36.7 101 18 133/83 (100) 98 Nasal Cannula 2.0 02/28/17 17:00 103 18 128/78 (95) 97 Nasal Cannula 2.0 02/28/17 16:50 36.9 102 16 135/78 (97) 99 Room Air 2.0 02/28/17 16:40 36.9 104 20 132/77 98 Nasal Cannula 2 02/28/17 16:30 104 20 134/79 100 Nasal Cannula 2 02/28/17 16:20 104 20 132/79 100 Oxymask 5 02/28/17 16:10 104 22 130/80 100 Oxymask 10 02/28/17 16:02 36.8 110 22 125/72 100 Oxymask 10 02/28/17 12:00 Room Air 02/28/17 11:37 36.8 97 20 124/78 (93) 98 Room Air General Appearance: WD/WN, no apparent distress Head: normocephalic, atraumatic Neck: supple, no adenopathy, thyroid normal, no JVD, no carotid bruits, trachea midline Respiratory/Chest: lungs clear, normal breath sounds, no respiratory distress, no accessory muscle use Cardiovascular: regular rate, rhythm, no edema, no gallop, no JVD, no murmur Abdomen: normal bowel sounds, non tender, non distended, soft, no organomegaly , no pulsatile mass Incision(s): findings (left lower chest/abdominal wound with no cellulitis. Dressing changed at bedside this morning, no bleeding, no crepitus. wet to dry dressing replaced) Extremities: normal range of motion, non-tender, normal inspection, no pedal edema, no calf tenderness, normal capillary refill, pelvis stable Laboratory Results: Results Past 24 Hours Test 02/28/17 16:18 02/28/17 16:59 02/28/17 20:27 02/28/17 20:28 Range/Units Bedside Glucose 225 251 439 476 70-99 mg/dl Test 02/28/17 21:21 02/28/17 23:48 03/01/17 05:26 03/01/17 06:54 Range/Units Vancomycin Level Trough 14.9 SEE COMMENT mcg/ml Bedside Glucose 369 202 70-99 mg/dl White Blood Count 9.69 4.8-10.8 K/uL Red Blood Count 3.06 4.7-6.1 M/uL Hemoglobin 8.9 14.0-18.0 g/dL Hematocrit 27.0 42-52 % Mean Corpuscular Volume 88.2 80-100 fL Mean Corpuscular Hemoglobin 29.1 25-34 pg Mean Corpuscular Hemoglobin Concent 33.0 32-36 g/dl Platelet Count 239 130-400 K/uL Mean Platelet Volume 8.6 7.4-10.4 fL Neutrophils (%) (Auto) 67.9 % Lymphocytes (%) (Auto) 17.5 % Monocytes (%) (Auto) 10.9 % Eosinophils (%) (Auto) 2.9 % Basophils (%) (Auto) 0.2 % Neutrophils # (Auto) 6.57 1.4-6.5 K/uL Lymphocytes # (Auto) 1.70 1.2-3.4 K/uL Monocytes # (Auto) 1.06 0.11-0.59 K/uL Eosinophils # (Auto) 0.28 0-0.5 K/uL Basophils # (Auto) 0.02 0-0.2 K/uL RDW Standard Deviation 41.1 36.4-46.3 fL RDW Coefficient of Variation 12.8 11.5-14.5 % Immature Granulocyte % (Auto) 0.6 % Immature Granulocyte # (Auto) 0.06 0.00-0.02 K/uL Toxic Granulation 1+ Dohle Bodies 1+ Hypochromasia PRESENT Sodium Level 138 136-145 mmol/L Potassium Level 3.7 3.5-5.1 mmol/L Chloride Level 106 98-107 mmol/L Carbon Dioxide Level 26 21-32 mmol/L Anion Gap 6.0 3-11 mmol/L Blood Urea Nitrogen 13 7-18 mg/dl Creatinine 1.70 0.60-1.40 mg/dl Est Creatinine Clear Calc Drug Dose 80.0 ml/min Estimated GFR () 65.4 Estimated GFR (Non- 56.4 BUN/Creatinine Ratio 7.6 10-20 Random Glucose 246 70-99 mg/dl Calcium Level 8.0 8.5-10.1 mg/dl Magnesium Level 2.1 1.8-2.4 mg/dl Test 03/01/17 08:00 Range/Units Urine Color YELLOW Urine Appearance CLEAR CLEAR Urine pH 5.0 4.5-7.5 Urine Specific [place] 1.016 1.000-1.030 Urine Protein TRACE NEG Urine Glucose (UA) NEG NEG Urine Ketones NEG NEG Urine Occult Blood NEG NEG Urine Nitrite NEG NEG Urine Bilirubin NEG NEG Urine Urobilinogen NEG NEG Urine Leukocyte Esterase NEG NEG Urine WBC (Auto) 1-5 0-5 /hpf Urine RBC (Auto) 0-4 0-4 /hpf Urine Hyaline Casts (Auto) 1-5 0-5 /lpf Urine Epithelial Cells (Auto) 5-10 0-5 /lpf Urine Bacteria (Auto) NEG NEG Urine Crystals AMORPHOUS SEDIMENT NONE PRSENT Urine Yeast (Auto) NONE PRSENT Microbiology: RUN DATE: 03/01/17 [facility] LAB PAGE 1 RUN TIME: 075 Specimen Inquiry PATIENT: ANISH SINGH LOC: [facility] U # : [id number] AGE/SX: 22/M ROOM: [facility] REG : 02/27/[address]: Jon Juarez MD : 1995 BED: 1 DIS : STATUS: ADM IN TLOC: SPEC #: [id number] TINO: 02/28/17-UNK STATUS: RES REQ #: [id number] RECD: 02/28/[address]: Jon Juarez MD SOURCE: ABSCESS ENTR: 02/28/17 [facility] DR: Quirino Valderrama MD [facility]: Nino Angela DO Pasquariello, Rick D M.D. Qiu, Juan, M.D. ORDERED: AER/ANKUR CULTSMR Procedure Result Verified Site GRAM STAIN Final 03/01/17 RESULT MANY WBCs SEEN MANY GRAM POSITIVE COCCI OR AER/ANKUR CULT Preliminary 03/01/17 Organism 1 STAPHYLOCOCCUS AUREUS QUANITY MANY SENS SENSITIVITY TO FOLLOW Assessment & Plan POD#1 I&D abscess. Cultures the staph aureus, sensitivities pending. Pain not completely controlled, may need narcotics despite history of IVDA, will leave this up to primary team. His WBC is normalizing with drainage. ID following, continue IV abx for now. Also, given intramuscular pelvic abscess, he may need ferry terminal agent IV abx versus orals. No indication for IR drainage at this time. We will obtain wound care consult for possible wound vac placement continue wet to dry dressing bid for now. Lindsay Virk,
[2017-03-01] MEDS: MoRPHine SULFATE 4 MG/ML 1 ML CARP\\VIAL IV PRN ×3 (12:01→21:44)
[2017-03-01 16:31] LABS: BUN/CREATININE RATIO 5.7 (10-20); CALCIUM 8.5 mg/dl (8.5-10.1); CREATININE 2.7 mg/dl (0.60-1.40)
--- NOTE | 2017-03-01 16:56 | Medical Student: [facility] ---
Med Student Progress Note Date of Service Mar 01, 2017. Subjective Pt evaluation today including: conversation w/ patient, conversation w/ family , physical exam, chart review, lab review, review of studies, review of inpatient medication list Pain: 7/10 at incision site PO Intake: normal Voiding: no voiding problems This is 22 year-old male with history of type 1DM, Hepatitis C, and IVDA presented on Sep with severe left chest pain. Per record, he was canoeing and fell and was seen 5 days ago for this pain. CXR at that time is negative for fractures. During this admission, Chest CT and Abd/pelvis CT 02/27 show 6.4x3.5 cm abscess/hematoma on the left inferior chest/upper abdomen and 2.5 cm abscess right obturator internus. He went for I&D yesterday and abscess culture shows Staph. aureus. Today, he states that he is in a lot of pain, mostly at the incision site, but gets better with less packing. He denies fever/chills/N/V. Had one BM yesterday after surgery. No signs of infection at the incision site. Review of Systems Constitutional: + see HPI, No fever, No chills Eyes: No worsening of vision ENT: No hearing loss Respiratory: No cough, No sputum, No shortness of breath (pain with deep breath ) Cardiac: No chest pain Abdomen: + problem reported (pain at incision site), No constipation Musculoskeletal: No joint pain, No swelling Male : No dysuria Objective Vital Signs Date Time Temp Pulse Resp B/P (MAP) Pulse Ox O2 Delivery O2 Flow Rate FiO2 03/01/17 13:53 Room Air 03/01/17 11:07 38.6 97 26 119/72 (88) 98 Room Air 03/01/17 08:44 97 Room Air 03/01/17 08:04 36.8 103 14 123/84 (97) 97 Room Air 03/01/17 08:00 97 Room Air 03/01/17 04:00 98 Room Air 03/01/17 03:30 36.8 95 18 117/69 (85) 97 Room Air 02/28/17 23:59 98 Room Air 02/28/17 23:45 37.0 102 20 127/81 (96) 98 Room Air 02/28/17 20:00 Room Air 02/28/17 18:59 36.7 113 14 141/86 (104) 97 Room Air 02/28/17 18:15 36.7 103 16 134/76 (95) 99 Nasal Cannula 2.0 02/28/17 17:45 36.6 102 18 138/80 (99) 99 Nasal Cannula 2.0 02/28/17 17:15 36.7 101 18 133/83 (100) 98 Nasal Cannula 2.0 02/28/17 17:00 103 18 128/78 (95) 97 Nasal Cannula 2.0 02/28/17 16:50 36.9 102 16 135/78 (97) 99 Room Air 2.0 02/28/17 16:40 36.9 104 20 132/77 98 Nasal Cannula 2 02/28/17 16:30 104 20 134/79 100 Nasal Cannula 2 02/28/17 16:20 104 20 132/79 100 Oxymask 5 02/28/17 16:10 104 22 130/80 100 Oxymask 10 02/28/17 16:02 36.8 110 22 125/72 100 Oxymask 10 Physical Exam General Appearance: WD/WN, + mild distress Eyes: bilateral eyes normal inspection ENT: hearing grossly normal Neck: supple Respiratory/Chest: lungs clear, normal breath sounds, no respiratory distress, + decreased breath sounds (at base) Cardiovascular: regular rate, rhythm, no murmur Abdomen: normal bowel sounds, non tender, soft Extremities: normal inspection Neurologic/Psychiatric: alert, normal mood/affect, oriented x 3 Skin: normal color Comments: wound site is clean, no erythema, no fluid discharge. Laboratory Results Last 24 Hours Test 02/28/17 16:18 02/28/17 16:59 02/28/17 20:28 02/28/17 21:21 Bedside Glucose 225 mg/dl 251 mg/dl 476 mg/dl Vancomycin Level Trough 14.9 mcg/ml Test 02/28/17 23:48 03/01/17 05:26 03/01/17 06:54 03/01/17 08:00 Bedside Glucose 369 mg/dl 202 mg/dl White Blood Count 9.69 K/uL Red Blood Count 3.06 M/uL Hemoglobin 8.9 g/dL Hematocrit 27.0 % Mean Corpuscular Volume 88.2 fL Mean Corpuscular Hemoglobin 29.1 pg Mean Corpuscular Hemoglobin Concent 33.0 g/dl Platelet Count 239 K/uL Mean Platelet Volume 8.6 fL Neutrophils (%) (Auto) 67.9 % Lymphocytes (%) (Auto) 17.5 % Monocytes (%) (Auto) 10.9 % Eosinophils (%) (Auto) 2.9 % Basophils (%) (Auto) 0.2 % Neutrophils # (Auto) 6.57 K/uL Lymphocytes # (Auto) 1.70 K/uL Monocytes # (Auto) 1.06 K/uL Eosinophils # (Auto) 0.28 K/uL Basophils # (Auto) 0.02 K/uL RDW Standard Deviation 41.1 fL RDW Coefficient of Variation 12.8 % Immature Granulocyte % (Auto) 0.6 % Immature Granulocyte # (Auto) 0.06 K/uL Toxic Granulation 1+ Dohle Bodies 1+ Hypochromasia PRESENT Sodium Level 138 mmol/L Potassium Level 3.7 mmol/L Chloride Level 106 mmol/L Carbon Dioxide Level 26 mmol/L Anion Gap 6.0 mmol/L Blood Urea Nitrogen 13 mg/dl Creatinine 1.70 mg/dl Est Creatinine Clear Calc Drug Dose 80.0 ml/min Estimated GFR () 65.4 Estimated GFR (Non- 56.4 BUN/Creatinine Ratio 7.6 Random Glucose 246 mg/dl Calcium Level 8.0 mg/dl Magnesium Level 2.1 mg/dl Urine Color YELLOW Urine Appearance CLEAR Urine pH 5.0 Urine Specific [place] 1.016 Urine Protein TRACE Urine Glucose (UA) NEG Urine Ketones NEG Urine Occult Blood NEG Urine Nitrite NEG Urine Bilirubin NEG Urine Urobilinogen NEG Urine Leukocyte Esterase NEG Urine WBC (Auto) 1-5 /hpf Urine RBC (Auto) 0-4 /hpf Urine Hyaline Casts (Auto) 1-5 /lpf Urine Epithelial Cells (Auto) 5-10 /lpf Urine Bacteria (Auto) NEG Urine Crystals AMORPHOUS SEDIMENT Urine Yeast (Auto) Test 03/01/17 11:21 03/01/17 14:30 Bedside Glucose 171 mg/dl Medications Current Inpatient Medications Medications (Trade) Dose Ordered Sig/Myron Route Start Time Stop Time Status Last Admin Dose Admin Acetaminophen (Tylenol Tab) 650 mg Q4H PRN PO 02/27/17 12:00 03/29/17 11:59 02/28/17 06:05 650 MG Zolpidem Tartrate (Ambien Tab) 5 mg HSZ PRN PO 02/27/17 12:00 03/29/17 11:59 03/01/17 00:03 5 MG Cholecalciferol (Vitamin D Tab) 1,000 inter.unit DAILY PO 02/28/17 09:00 03/30/17 08:59 03/01/17 10:10 1,000 INTER.UNIT Insulin Glargine (Lantus Solostar Pen) 60 units QPM SC 02/27/17 21:00 03/29/17 20:59 02/28/17 20:47 60 UNITS Magnesium Oxide (Mag-Ox Tab) 400 mg DAILY PO 02/28/17 09:00 03/30/17 08:59 03/01/17 10:11 400 MG Tramadol HCl (Ultram Tab) 50 mg Q4H PRN PO 02/27/17 12:00 03/29/17 11:59 03/01/17 11:23 50 MG Ondansetron HCl (Zofran Inj) 4 mg Q6H PRN IV 02/27/17 12:00 03/29/17 11:59 Insulin Aspart (novoLOG ASPART) SLIDING SCALE If C... ACHS SC 02/27/17 16:30 03/29/17 16:29 03/01/17 12:20 13 UNITS Glucose (Glucose 40% Gel) UD PRN PO 02/27/17 12:00 03/29/17 11:59 Glucose (Glucose Chew Tab) 1 tabs UD PRN PO 02/27/17 12:00 03/29/17 11:59 Dextrose (Dextrose 50% 50ML Syringe) 50 ml UD PRN IV 02/27/17 12:00 03/29/17 11:59 Glucagon (Glucagon Inj) 1 mg UD PRN SQ 02/27/17 12:00 03/29/17 11:59 Potassium Chloride/Sodium Chloride 1,000 ml @ 150 mls/hr Q6H40M IV 02/27/17 15:00 03/29/17 11:55 03/01/17 13:53 150 MLS/HR Ketorolac Tromethamine (Toradol Inj) 30 mg Q6H PRN IV 02/27/17 12:15 03/04/17 12:14 03/01/17 08:24 30 MG Vancomycin HCl (Consult) 1 ea UD PRN N/A 02/27/17 12:15 03/29/17 12:14 Piperacillin Sod/ Tazobactam Sod 3.375 gm/Dextrose 115 ml @ 28.75 mls/ hr Q8H IV 02/28/17 09:00 03/10/17 08:59 03/01/17 10:09 28.75 MLS/HR Piperacillin Sod/ Tazobactam Sod (Consult) 1 ea UD PRN N/A 02/28/17 08:45 03/30/17 08:44 Famotidine (Pepcid Tab) 20 mg Q12 PO 02/28/17 21:00 03/30/17 20:59 03/01/17 10:10 20 MG Vancomycin HCl 1750 mg/Sodium Chloride 535 ml @ 200 mls/hr Q12H IV 03/01/17 18:00 03/09/17 17:59 Morphine Sulfate (MoRPHine SULFATE INJ) 4 mg Q3H PRN IV 03/01/17 11:45 03/15/17 11:44 03/01/17 12:01 4 MG Assessment and Plan Assessment and Plan: This is 22 year-old male with history of type 1DM, Hepatitis C, and IVDA presented on Sep 3 with severe left chest pain. Per record, he was canoeing and fell and was seen 5 days ago for this pain. CXR at that time is negative for fractures. During this admission, Chest CT and Abd/pelvis CT 02/27 show 6.4x3.5 cm abscess/hematoma on the left inferior chest/upper abdomen and 2.5 cm abscess right obturator internus. He went for I&D yesterday and abscess culture shows Staph. aureus. Blood culture is negative. Abscesses - Continue Vancomycin, Levaquin, and Zosyn. - Continue with Tramadol, morphine, and Toradol for pain control. - Continue monitor Cr and blood Hgb . Pending - IR is considered for pelvic abscess. Hold for now. Type 1 DM - Continue with Novolog and Lantus IVDU - HIV test - pending HepC Continued [facility] stay due to: fever, inadequate po fluid intake, multiple IV medications needed Discharge planning: home
[2017-03-01] MEDS ORDERED: NURSING VERBAL MED ORDER ONE ×2 (17:30)
[2017-03-01] MEDS ORDERED: VANCOMYCIN INJ 1,750 MG in SODIUM CHLORIDE 0.9% 500ML 500 ML IV SCH (18:00)
[2017-03-01] MEDS: SODIUM CHLORIDE 0.9% 1000ML 1,000 ML IV SCH (18:10)
--- NOTE | 2017-03-01 19:14 | Progress Note ---
Subjective Date of Service: Mar 01, 2017. Subjective Pt evaluation today including: conversation w/ patient, conversation w/ family (mother, father) Pain: left upper abdomen at site of abscess but modestly improved today PO Intake: fair Voiding: no voiding problems tele stable overnight only complaint is that of the abscess pain in the left upper abdomen denies right hip/right pelvis pain verbal consent obtained from patient for HIV testing feels very tired and weak Problem List Medical Problems: (1) Abscess of left forearm Status: Acute (2) Chest wall hematoma Status: Acute (3) Chronic Viral Hepatitis C Status: Chronic (4) Endocarditis Status: Acute (5) Hyperglycemia due to type 1 diabetes mellitus Status: Acute (6) IV drug abuse Status: Chronic (7) Left arm cellulitis Status: Acute (8) Rib pain on left side Status: Acute (9) Type 1 diabetes Status: Chronic Review of Systems Constitutional: + fever Respiratory: No cough, No shortness of breath Cardiac: No chest pain Abdomen: + see HPI, + pain, No vomiting, No diarrhea Objective Vital Signs Date Time Temp Pulse Resp B/P (MAP) Pulse Ox O2 Delivery O2 Flow Rate FiO2 03/01/17 16:00 Room Air 03/01/17 15:57 36.8 91 15 115/82 (93) 100 Room Air 03/01/17 13:53 Room Air 03/01/17 11:07 38.6 97 26 119/72 (88) 98 Room Air 03/01/17 08:44 97 Room Air 03/01/17 08:04 36.8 103 14 123/84 (97) 97 Room Air 03/01/17 08:00 97 Room Air 03/01/17 04:00 98 Room Air 03/01/17 03:30 36.8 95 18 117/69 (85) 97 Room Air 02/28/17 23:59 98 Room Air 02/28/17 23:45 37.0 102 20 127/81 (96) 98 Room Air 02/28/17 20:00 Room Air Physical Exam General Appearance: no apparent distress ENT: pharynx normal Neck: no JVD Respiratory/Chest: lungs clear, no respiratory distress, no accessory muscle use Cardiovascular: regular rate, rhythm, no gallop, no murmur Abdomen: normal bowel sounds, non tender, soft, no organomegaly Extremities: no pedal edema Neurologic/Psychiatric: alert, oriented x 3, + depressed affect Skin: + pallor, + pertinent finding (left upper quadrant of abdomen - eliptical shaped incision over abscess site, packing material in place; track pelayo over b/l antecubital regions) Laboratory Results Last 24 Hours Test 02/28/17 20:28 02/28/17 21:21 02/28/17 23:48 03/01/17 05:26 Bedside Glucose 476 mg/dl 369 mg/dl Vancomycin Level Trough 14.9 mcg/ml White Blood Count 9.69 K/uL Red Blood Count 3.06 M/uL Hemoglobin 8.9 g/dL Hematocrit 27.0 % Mean Corpuscular Volume 88.2 fL Mean Corpuscular Hemoglobin 29.1 pg Mean Corpuscular Hemoglobin Concent 33.0 g/dl Platelet Count 239 K/uL Mean Platelet Volume 8.6 fL Neutrophils (%) (Auto) 67.9 % Lymphocytes (%) (Auto) 17.5 % Monocytes (%) (Auto) 10.9 % Eosinophils (%) (Auto) 2.9 % Basophils (%) (Auto) 0.2 % Neutrophils # (Auto) 6.57 K/uL Lymphocytes # (Auto) 1.70 K/uL Monocytes # (Auto) 1.06 K/uL Eosinophils # (Auto) 0.28 K/uL Basophils # (Auto) 0.02 K/uL RDW Standard Deviation 41.1 fL RDW Coefficient of Variation 12.8 % Immature Granulocyte % (Auto) 0.6 % Immature Granulocyte # (Auto) 0.06 K/uL Toxic Granulation 1+ Dohle Bodies 1+ Hypochromasia PRESENT Sodium Level 138 mmol/L Potassium Level 3.7 mmol/L Chloride Level 106 mmol/L Carbon Dioxide Level 26 mmol/L Anion Gap 6.0 mmol/L Blood Urea Nitrogen 13 mg/dl Creatinine 1.70 mg/dl Est Creatinine Clear Calc Drug Dose 80.0 ml/min Estimated GFR () 65.4 Estimated GFR (Non- 56.4 BUN/Creatinine Ratio 7.6 Random Glucose 246 mg/dl Calcium Level 8.0 mg/dl Magnesium Level 2.1 mg/dl Test 03/01/17 06:54 03/01/17 08:00 03/01/17 11:21 03/01/17 15:54 Bedside Glucose 202 mg/dl 171 mg/dl Urine Color YELLOW Urine Appearance CLEAR Urine pH 5.0 Urine Specific [place] 1.016 Urine Protein TRACE Urine Glucose (UA) NEG Urine Ketones NEG Urine Occult Blood NEG Urine Nitrite NEG Urine Bilirubin NEG Urine Urobilinogen NEG Urine Leukocyte Esterase NEG Urine WBC (Auto) 1-5 /hpf Urine RBC (Auto) 0-4 /hpf Urine Hyaline Casts (Auto) 1-5 /lpf Urine Epithelial Cells (Auto) 5-10 /lpf Urine Bacteria (Auto) NEG Urine Crystals AMORPHOUS SEDIMENT Urine Yeast (Auto) Sodium Level 139 mmol/L Potassium Level 4.0 mmol/L Chloride Level 108 mmol/L Carbon Dioxide Level 24 mmol/L Anion Gap 7.0 mmol/L Blood Urea Nitrogen 16 mg/dl Creatinine 2.70 mg/dl Est Creatinine Clear Calc Drug Dose 50.3 ml/min Estimated GFR () 37.4 Estimated GFR (Non- 32.2 BUN/Creatinine Ratio 5.7 Random Glucose 162 mg/dl Calcium Level 8.5 mg/dl HIV (1&2) Ab and P24 Ag, 4th Gener NEG Test 03/01/17 16:20 Bedside Glucose 164 mg/dl Assessment and Plan 22yo male with: 1. sepsis 2nd to left upper quadrant infected hematoma/abscess - POD #1 s/p I&D by Dr. Virk. Growing staph aureus - likely to be MRSA. Await final culture result. In meantime continue IV zosyn & vanco but narrow when able. He also has a small abscess in the right obturator internus muscle. This hopefully will improve with IV antibiotic therapy but conceivably might need drainage, perhaps via IR. If he continues with fevers he would need repeat imaging of that abscess to r/o worsening. Appreciate gen surg & ID consultations. Of note - echo negative for valvular vegetations. Obtained verbal consent to repeat his HIV test in light of ongoing IV drug abuse. 2. T1DM - uncontrolled. Cont lantus 60 units HS. Cont novolog but increase correction to 20 and carb ratio of 1:6. 3. hypokalemia - resolved. 4. hypomagnesemia - resolved. 5. DVT proph - add heparin BID. 6. FEN - continue IVF but lower rate to 100cc/hr due to acute renal failure. T1DM as tolerated. Since K is rising slowly and creatinine has worsened will remove KCL from fluids. 7. h/o IV drug abuse - HIV test pending. 8. HepC status - noted. 9. acute kidney failure - u/a without casts, blood, or significant protein. CPK normal. No rash to suggest interstitial nephritis. Bladder scan showed <20cc urine. Cause? Contrast nephropathy from recent CT contrast? Obstruction? ATN from sepsis? Other? Check renal u/s. Check urine Na and Cr - calculate FeNa. Nephrology consultation requested (spoke with Dr. Vázquez). Repeat u/a in am. Complements. Fortunately he is NOT oliguric. 10. anemia - 3 gm drop in hemoglobin since admission. no obvious blood loss. check hemoccult. recheck CBC in am. Continued [facility] stay due to: fever, inadequate po fluid intake, multiple IV medications needed, other (acute kidney injury ) Discharge planning: uncertain
--- NOTE | 2017-03-01 20:02 | DIAGNOSTIC IMAGING REPORT ---
(RENAL)RETROPERITONEA COMP HISTORY: Renal insufficiency acute renal failure COMPARISON: None. FINDINGS: Right kidney: No hydronephrosis. Normal corticomedullary differentiation and cortical thickness. Maximum dimension 15 cm Left kidney: No hydronephrosis. Normal corticomedullary differentiation and cortical thickness. Maximum dimension 14.5 cm. Bladder: No bladder wall thickening. The bilateral ureteral jets were identified. IMPRESSION: Normal renal ultrasound. No evidence for hydronephrosis. The above report was generated using voice recognition software. It may contain grammatical, syntax or spelling errors. Electronically signed by: Tacos Rodas M.D. 03/01/2017 8:00 PM Dictated Date/Time: 03/01/2017 7:59 PM
[2017-03-01 21:17] LABS: PROTHROMBIN TIME (PATIENT) 10.7 SECONDS (9.0-12.0)
[2017-03-01 21:42] LABS: URINE APPEARANCE CLEAR (CLEAR); URINE BILIRUBIN NEG (NEG); URINE COLOR YELLOW; URINE NITRITE NEG (NEG); URINE PH 5.5 (4.5-7.5); URINE SPECIFIC GRAVITY 1.015 (1.000-1.030); UROBILINOGEN NEG (NEG)
[2017-03-01 21:55] LABS: MANUAL MICROSCOPIC REQUIRED? NO; REVIEW REQ? NO
[2017-03-01] MEDS: INSULIN GLARGINE SOLOSTAR 100 UNITS/ML 3 ML PEN SC SCH (22:02)
[2017-03-02] VITALS (7 sets, daily range): BP systolic 117–132; BP diastolic 71–89; PULSE 87–94; TEMP 36.7–37; O2SAT 96–99
[2017-03-02] MEDS: PIPERACILL/TAZOBAC IV 3.375 GM in DEXTROSE 5% 100ML 100 ML IV SCH ×2 (02:04→09:41)
[2017-03-02 06:11] LABS: BASO % 0.2 %; BASO ABS # 0.02 K/uL (0-0.2); COMPLETE YES; EOS % 2.9 %; IG% 1.1 %; LYMPH % 18.4 %; LYMPH ABS # 1.64 K/uL (1.2-3.4); MEAN CELL VOLUME 90.9 fL (80-100); MEAN CORPUSCULAR HEMOGLOBIN 27.9 pg (25-34); MEAN CORPUSCULAR HGB CONC 30.7 g/dl (32-36); MEAN PLATELET VOLUME 8.6 fL (7.4-10.4); MONO % 10.9 %; NEUT % 66.5 %; PLATELET COUNT 273 K/uL (130-400); WHITE BLOOD COUNT 8.93 K/uL (4.8-10.8)
[2017-03-02] MEDS: MoRPHine SULFATE 4 MG/ML 1 ML CARP\\VIAL IV PRN ×5 (06:22→22:07)
[2017-03-02] MEDS: SODIUM CHLORIDE 0.9% 1000ML 1,000 ML IV SCH (06:26)
[2017-03-02 06:38] LABS: BUN/CREATININE RATIO 4.7 (10-20); CALCIUM 8.6 mg/dl (8.5-10.1); CREATININE 3.6 mg/dl (0.60-1.40); POTASSIUM 3.9 mmol/L (3.5-5.1)
--- NOTE | 2017-03-02 08:04 | Progress Note ---
Subjective Date of Service: Mar 02, 2017. Subjective Patient is lethargic was seen by psychiatry today no medication changes were recommended he complains of pain in his abdomen is pain is somewhat improved with the packing removal from the abscess site he also has some pain in the right lower abdomen which might be consistent with his internal abscess around the right obturator muscle. The patient avoids eye contact definitely is seemingly depressed is pale Problem List Medical Problems: (1) Abscess of left forearm Status: Acute (2) Chest wall hematoma Status: Acute (3) Chronic Viral Hepatitis C Status: Chronic (4) Endocarditis Status: Acute (5) Hyperglycemia due to type 1 diabetes mellitus Status: Acute (6) IV drug abuse Status: Chronic (7) Left arm cellulitis Status: Acute (8) Rib pain on left side Status: Acute (9) Type 1 diabetes Status: Chronic Review of Systems Constitutional: + weakness, No fever, No chills Respiratory: No cough, No sputum, No shortness of breath, No dyspnea on exertion Cardiac: + chest pain, No orthopnea Abdomen: + pain, + diarrhea, No nausea, No vomiting, No constipation Male : No dysuria, No urinary frequency Psychiatric: + depression symptoms, + anhedonism Objective Vital Signs Date Time Temp Pulse Resp B/P (MAP) Pulse Ox O2 Delivery O2 Flow Rate FiO2 03/02/17 04:00 Room Air 03/02/17 03:00 36.8 87 18 130/76 (94) 98 Room Air 03/02/17 00:01 36.8 92 18 117/71 (86) 97 Room Air 03/01/17 23:59 Room Air 03/01/17 20:00 Room Air 03/01/17 19:15 36.8 94 12 121/70 (87) 97 Room Air 03/01/17 16:00 Room Air 03/01/17 15:57 36.8 91 15 115/82 (93) 100 Room Air 03/01/17 13:53 Room Air 03/01/17 11:07 38.6 97 26 119/72 (88) 98 Room Air 03/01/17 08:44 97 Room Air 03/01/17 08:04 36.8 103 14 123/84 (97) 97 Room Air 03/01/17 08:00 97 Room Air Physical Exam General Appearance: WD/WN, + mild distress Eyes: PERRL, EOMI Respiratory/Chest: chest non-tender, lungs clear, + decreased breath sounds ( bases) Cardiovascular: regular rate, rhythm, no murmur Abdomen: normal bowel sounds, soft, + tenderness (more tender to exam then when listening with stethoscope) Extremities: no pedal edema, no calf tenderness Neurologic/Psychiatric: alert, oriented x 3 Laboratory Results Last 24 Hours Test 03/01/17 08:00 03/01/17 11:21 03/01/17 15:54 03/01/17 16:20 Urine Color YELLOW Urine Appearance CLEAR Urine pH 5.0 Urine Specific [place] 1.016 Urine Protein TRACE Urine Glucose (UA) NEG Urine Ketones NEG Urine Occult Blood NEG Urine Nitrite NEG Urine Bilirubin NEG Urine Urobilinogen NEG Urine Leukocyte Esterase NEG Urine WBC (Auto) 1-5 /hpf Urine RBC (Auto) 0-4 /hpf Urine Hyaline Casts (Auto) 1-5 /lpf Urine Epithelial Cells (Auto) 5-10 /lpf Urine Bacteria (Auto) NEG Urine Crystals AMORPHOUS SEDIMENT Urine Yeast (Auto) Bedside Glucose 171 mg/dl 164 mg/dl Sodium Level 139 mmol/L Potassium Level 4.0 mmol/L Chloride Level 108 mmol/L Carbon Dioxide Level 24 mmol/L Anion Gap 7.0 mmol/L Blood Urea Nitrogen 16 mg/dl Creatinine 2.70 mg/dl Est Creatinine Clear Calc Drug Dose 50.3 ml/min Estimated GFR () 37.4 Estimated GFR (Non- 32.2 BUN/Creatinine Ratio 5.7 Random Glucose 162 mg/dl Calcium Level 8.5 mg/dl Total Creatine Kinase 18 U/L HIV (1&2) Ab and P24 Ag, 4th Gener NEG Test 03/01/17 20:22 03/01/17 20:28 03/01/17 20:39 03/02/17 05:52 Bedside Glucose 173 mg/dl Urine Color YELLOW Urine Appearance CLEAR Urine pH 5.5 Urine Specific [place] 1.015 Urine Protein TRACE Urine Glucose (UA) NEG Urine Ketones NEG Urine Occult Blood NEG Urine Nitrite NEG Urine Bilirubin NEG Urine Urobilinogen NEG Urine Leukocyte Esterase NEG Urine WBC (Auto) 1-5 /hpf Urine RBC (Auto) 5-10 /hpf Urine Hyaline Casts (Auto) 1-5 /lpf Urine Epithelial Cells (Auto) 5-10 /lpf Urine Bacteria (Auto) NEG Urine Random Creatinine 50.0 mg/dl Urine Random Sodium 19 mEq/L Prothrombin Time 10.7 SECONDS Prothromb Time International Ratio 1.0 White Blood Count 8.93 K/uL Red Blood Count 3.30 M/uL Hemoglobin 9.2 g/dL Hematocrit 30.0 % Mean Corpuscular Volume 90.9 fL Mean Corpuscular Hemoglobin 27.9 pg Mean Corpuscular Hemoglobin Concent 30.7 g/dl Platelet Count 273 K/uL Mean Platelet Volume 8.6 fL Neutrophils (%) (Auto) 66.5 % Lymphocytes (%) (Auto) 18.4 % Monocytes (%) (Auto) 10.9 % Eosinophils (%) (Auto) 2.9 % Basophils (%) (Auto) 0.2 % Neutrophils # (Auto) 5.94 K/uL Lymphocytes # (Auto) 1.64 K/uL Monocytes # (Auto) 0.97 K/uL Eosinophils # (Auto) 0.26 K/uL Basophils # (Auto) 0.02 K/uL RDW Standard Deviation 44.0 fL RDW Coefficient of Variation 13.2 % Immature Granulocyte % (Auto) 1.1 % Immature Granulocyte # (Auto) 0.10 K/uL Sodium Level 141 mmol/L Potassium Level 3.9 mmol/L Chloride Level 110 mmol/L Carbon Dioxide Level 24 mmol/L Anion Gap 7.0 mmol/L Blood Urea Nitrogen 17 mg/dl Creatinine 3.60 mg/dl Est Creatinine Clear Calc Drug Dose 37.7 ml/min Estimated GFR () 26.4 Estimated GFR (Non- 22.8 BUN/Creatinine Ratio 4.7 Random Glucose 97 mg/dl Calcium Level 8.6 mg/dl Magnesium Level 2.0 mg/dl Random Vancomycin Level 31.1 mcg/ml Test 03/02/17 06:47 Bedside Glucose 78 mg/dl Assessment and Plan 22yo male sepsis from skin abscess sepsis s/p I&D by Dr. Virk. 02/28 Growing staph aureus - IV zosyn & vanco wound VAC will likely be placed INitially noted small abscess in the right obturator internus muscle. echo negative for valvular vegetations. IVDA HIV negative T1DM - lantus 60 units HS, novolog but increase correction to 20 and carb ratio of 1:6. hypokalemia, hypomagnesemia - resolved. HepC status - noted. To be positive acute kidney failure - continue IVF renal u/s normal. Nephrology consultation requested with Dr. Vázquez. anemia - 3 gm drop in hemoglobin since admission, ? dilutional Depression was evaluated by psychiatry the patient does not want to pursue any medication at this time and states prior to this episode he was doing quite well DVT proph - heparin BID. Continued [facility] stay due to: fever, inadequate po fluid intake, multiple IV medications needed, other (acute kidney injury ) Discharge planning: uncertain
[2017-03-02] MEDS: INSULIN ASPART 100 UNITS/ML 3 ML PEN SC SCH ×4 (09:37→21:00)
[2017-03-02] MEDS: CHOLECALCIFEROL 1000 INTER.UNIT TAB PO SCH (09:42)
[2017-03-02] MEDS: FAMOTIDINE 20 MG TAB PO SCH ×2 (09:42→21:53)
[2017-03-02] MEDS: HEPARIN SOD 5000 UNIT/0.5 ML CARP SQ SCH ×2 (09:50→21:58)
--- NOTE | 2017-03-02 11:48 | Pharmacy Progress Note ---
Pharmacy Abx Dose Short Note Date of Service Mar 02, 2017. Assessment & Plan Pharmacy consulted for management of IV Vancomycin. * Vancomycin placed on hold last evening, as SCr increased from 1.7 --> 2.7 --> 3.6 this am. * Random level this am: 31.1 mcg/mL * Will continue to hold vanc and re-evaluate a random level tomorrow w/ am labs. Will re-dose when appropriate. Pharmacy will continue to follow and will adjust dose/frequency as necessary. Thank you.
--- NOTE | 2017-03-02 12:08 | Surgery Progress Note ---
Surgery Progress Note Date of Service Mar 02, 2017. Subjective 22-year-old male status post incision and drainage of left lower chest/ abdominal wall infra-muscular MRSA abscess, POD# 2. Overall doing well, pain slightly improved, overall he feels better. Denies any fevers. Cultures grew back MRSA. Yesterday the chemistries drawn the was noted to have elevated creatinine, renal ultrasound was normal, and nephrology saw the patient today. Wound care nurse was consulted and saw the patient this morning. Objective Vital Signs: Date Time Temp Pulse Resp B/P (MAP) Pulse Ox O2 Delivery O2 Flow Rate FiO2 03/02/17 10:43 Room Air 03/02/17 08:33 36.7 93 18 127/81 (96) 96 03/02/17 08:00 36.7 93 18 127/81 (96) 96 03/02/17 08:00 Room Air 03/02/17 04:00 Room Air 03/02/17 03:00 36.8 87 18 130/76 (94) 98 Room Air 03/02/17 00:01 36.8 92 18 117/71 (86) 97 Room Air 03/01/17 23:59 Room Air 03/01/17 20:00 Room Air 03/01/17 19:15 36.8 94 12 121/70 (87) 97 Room Air 03/01/17 16:00 Room Air 03/01/17 15:57 36.8 91 15 115/82 (93) 100 Room Air 03/01/17 13:53 Room Air General Appearance: WD/WN, no apparent distress Head: normocephalic, atraumatic Neck: supple, no adenopathy, thyroid normal, no JVD, no carotid bruits, trachea midline Respiratory/Chest: lungs clear, normal breath sounds, no respiratory distress, no accessory muscle use Cardiovascular: regular rate, rhythm, no edema, no gallop, no JVD, no murmur Abdomen: normal bowel sounds, non tender, non distended, soft, no organomegaly , no pulsatile mass Incision(s): findings (6 centimeter x 3 centimeter elliptical opening with gauze in place. No surrounding cellulitis. Wound care was going to see the patient shortly after I saw him, therefore I did not examine the wound today.) Extremities: normal range of motion, non-tender, normal inspection, no pedal edema, no calf tenderness, normal capillary refill, pelvis stable Laboratory Results: Results Past 24 Hours Test 03/01/17 15:54 03/01/17 16:20 03/01/17 20:22 03/01/17 20:28 Range/Units Sodium Level 139 136-145 mmol/L Potassium Level 4.0 3.5-5.1 mmol/L Chloride Level 108 98-107 mmol/L Carbon Dioxide Level 24 21-32 mmol/L Anion Gap 7.0 3-11 mmol/L Blood Urea Nitrogen 16 7-18 mg/dl Creatinine 2.70 0.60-1.40 mg/dl Est Creatinine Clear Calc Drug Dose 50.3 ml/min Estimated GFR () 37.4 Estimated GFR (Non- 32.2 BUN/Creatinine Ratio 5.7 10-20 Random Glucose 162 70-99 mg/dl Calcium Level 8.5 8.5-10.1 mg/dl Total Creatine Kinase 18 39-308 U/L HIV (1&2) Ab and P24 Ag, 4th Gener NEG NEG Bedside Glucose 164 173 70-99 mg/dl Urine Color YELLOW Urine Appearance CLEAR CLEAR Urine pH 5.5 4.5-7.5 Urine Specific [place] 1.015 1.000-1.030 Urine Protein TRACE NEG Urine Glucose (UA) NEG NEG Urine Ketones NEG NEG Urine Occult Blood NEG NEG Urine Nitrite NEG NEG Urine Bilirubin NEG NEG Urine Urobilinogen NEG NEG Urine Leukocyte Esterase NEG NEG Urine WBC (Auto) 1-5 0-5 /hpf Urine RBC (Auto) 5-10 0-4 /hpf Urine Hyaline Casts (Auto) 1-5 0-5 /lpf Urine Epithelial Cells (Auto) 5-10 0-5 /lpf Urine Bacteria (Auto) NEG NEG Urine Random Creatinine 50.0 mg/dl Urine Random Sodium 19 mEq/L Test 03/01/17 20:39 03/02/17 05:52 03/02/17 06:47 03/02/17 11:34 Range/Units Prothrombin Time 10.7 9.0-12.0 SECONDS Prothromb Time International Ratio 1.0 0.9-1.1 White Blood Count 8.93 4.8-10.8 K/uL Red Blood Count 3.30 4.7-6.1 M/uL Hemoglobin 9.2 14.0-18.0 g/dL Hematocrit 30.0 42-52 % Mean Corpuscular Volume 90.9 80-100 fL Mean Corpuscular Hemoglobin 27.9 25-34 pg Mean Corpuscular Hemoglobin Concent 30.7 32-36 g/dl Platelet Count 273 130-400 K/uL Mean Platelet Volume 8.6 7.4-10.4 fL Neutrophils (%) (Auto) 66.5 % Lymphocytes (%) (Auto) 18.4 % Monocytes (%) (Auto) 10.9 % Eosinophils (%) (Auto) 2.9 % Basophils (%) (Auto) 0.2 % Neutrophils # (Auto) 5.94 1.4-6.5 K/uL Lymphocytes # (Auto) 1.64 1.2-3.4 K/uL Monocytes # (Auto) 0.97 0.11-0.59 K/uL Eosinophils # (Auto) 0.26 0-0.5 K/uL Basophils # (Auto) 0.02 0-0.2 K/uL RDW Standard Deviation 44.0 36.4-46.3 fL RDW Coefficient of Variation 13.2 11.5-14.5 % Immature Granulocyte % (Auto) 1.1 % Immature Granulocyte # (Auto) 0.10 0.00-0.02 K/uL Sodium Level 141 136-145 mmol/L Potassium Level 3.9 3.5-5.1 mmol/L Chloride Level 110 98-107 mmol/L Carbon Dioxide Level 24 21-32 mmol/L Anion Gap 7.0 3-11 mmol/L Blood Urea Nitrogen 17 7-18 mg/dl Creatinine 3.60 0.60-1.40 mg/dl Est Creatinine Clear Calc Drug Dose 37.7 ml/min Estimated GFR () 26.4 Estimated GFR (Non- 22.8 BUN/Creatinine Ratio 4.7 10-20 Random Glucose 97 70-99 mg/dl Calcium Level 8.6 8.5-10.1 mg/dl Magnesium Level 2.0 1.8-2.4 mg/dl Random Vancomycin Level 31.1 mcg/ml Bedside Glucose 78 107 70-99 mg/dl RUN DATE: 03/02/17 [facility] LAB PAGE 1 RUN TIME: 806 Specimen Inquiry PATIENT: ANISH SINGH LOC: [facility] U # : [id number] AGE/SX: 22/M ROOM: [facility] REG : 02/27/[address]: Jon Juarez MD : 1995 BED: 1 DIS : STATUS: ADM IN TLOC: SPEC #: [id number] TINO: 02/28/17-UNK STATUS: RES REQ #: [id number] RECD: 02/28/17 [facility] DR: Jon Juarez MD SOURCE: ABSCESS ENTR: 02/28/17 [facility] DR: Quirino Valderrama MD [facility]: Nino Angela DO Pasquariello, Rick D M.D. Qiu, Juan, M.D. ORDERED: AER/ANKUR CULTSMR Procedure Result Verified Site GRAM STAIN Final 03/01/17 RESULT MANY WBCs SEEN MANY GRAM POSITIVE COCCI OR AER/ANKUR CULT Preliminary 03/02/17-806 Organism 1 STAPHYLOCOCCUS AUREUS QUANITY MANY SENS SENSITIVITY TO FOLLOW SENSITIVITY RESULT INDICATES A METHICILLIN RESISTANT STAPH. AUREUS. PHONED TO W[facility] GILL ON 03/02/17 AT 0726 BY Nazanin Orozco. Results were verbalized back to [facility]. RESULTS WERE ALSO CALLED TO [facility] INFECTION CONTROL ANSWERING MACHINE ON 03/02/17 BY [facility]. 1. STAPHYLOCOCCUS AUREUS Target Route Dose RX AB Cost M.I.C. IQ ------ ----- ------ -- ------ -------- - ------ TRIMET/SULFA S <=0.5/ 9.5 * OXACILLIN R * >2 VANCOMYCIN S 1 ERYTHROMYCIN R >4 TETRACYCLINE S <=4 CLINDAMYCIN S <=0.5 DAPTOMYCIN S <=0.5 RIFAMPIN S <=1 S = SENSITIVE I = INTERMEDIATE R = RESISTANT Assessment & Plan POD#2 I&D infra-muscular chest/abdominal wall abscess. Cultures show MRSA. WBC normal, Cr elevated and nephrology following. ID following, continue IV abx for now. Also, given intramuscular pelvic abscess, he may need intermediate IV abx versus orals. No indication for IR drainage at this time. Wound care nurse consulted, wound vac placed surgery will follow, call with questions or concerns Lindsay Virk, DO [phone]
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
[2017-03-02] MEDS: TRAMADOL HCL 50 MG TAB PO PRN (13:49)
[2017-03-02] MEDS ORDERED: NURSING VERBAL MED ORDER ONE ×2 (14:00)
--- NOTE | 2017-03-02 14:08 | Infectious Disease Progress Nt ---
Progress Note Date of Service Mar 02, 2017. Subjective Pt evaluation today including: conversation w/ patient, conversation w/ family , physical exam, chart review, lab review, review of studies, conversation w/ [employer] sales consultant, review of inpatient medication list Patient offering no new complaints today. Remains afebrile. Cultures have grown MRSA. Tolerating antibiotics without apparent difficulty. All Other Systems: Reviewed and Negative Medications Current Inpatient Medications Medications (Trade) Dose Ordered Sig/Myron Route Start Time Stop Time Status Last Admin Dose Admin Acetaminophen (Tylenol Tab) 650 mg Q4H PRN PO 02/27/17 12:00 03/29/17 11:59 02/28/17 06:05 650 MG Zolpidem Tartrate (Ambien Tab) 5 mg HSZ PRN PO 02/27/17 12:00 03/29/17 11:59 03/01/17 00:03 5 MG Cholecalciferol (Vitamin D Tab) 1,000 inter.unit DAILY PO 02/28/17 09:00 03/30/17 08:59 03/02/17 09:42 1,000 INTER.UNIT Insulin Glargine (Lantus Solostar Pen) 60 units QPM SC 02/27/17 21:00 03/29/17 20:59 03/01/17 22:02 60 UNITS Tramadol HCl (Ultram Tab) 50 mg Q4H PRN PO 02/27/17 12:00 03/29/17 11:59 03/02/17 13:49 50 MG Ondansetron HCl (Zofran Inj) 4 mg Q6H PRN IV 02/27/17 12:00 03/29/17 11:59 Insulin Aspart (novoLOG ASPART) SLIDING SCALE If C... ACHS SC 02/27/17 16:30 03/29/17 16:29 03/02/17 12:30 5 UNITS Glucose (Glucose 40% Gel) UD PRN PO 02/27/17 12:00 03/29/17 11:59 Glucose (Glucose Chew Tab) 1 tabs UD PRN PO 02/27/17 12:00 03/29/17 11:59 Dextrose (Dextrose 50% 50ML Syringe) 50 ml UD PRN IV 02/27/17 12:00 03/29/17 11:59 Glucagon (Glucagon Inj) 1 mg UD PRN SQ 02/27/17 12:00 03/29/17 11:59 Vancomycin HCl (Consult) 1 ea UD PRN N/A 02/27/17 12:15 03/29/17 12:14 Piperacillin Sod/ Tazobactam Sod 3.375 gm/Dextrose 115 ml @ 28.75 mls/ hr Q8H IV 02/28/17 09:00 03/10/17 08:59 03/02/17 09:41 28.75 MLS/HR Piperacillin Sod/ Tazobactam Sod (Consult) 1 ea UD PRN N/A 02/28/17 08:45 03/30/17 08:44 Famotidine (Pepcid Tab) 20 mg Q12 PO 02/28/17 21:00 03/30/17 20:59 03/02/17 09:42 20 MG Vancomycin HCl 1750 mg/Sodium Chloride 535 ml @ 200 mls/hr Q12H IV 03/01/17 18:00 03/09/17 17:59 Future Hold Morphine Sulfate (MoRPHine SULFATE INJ) 4 mg Q3H PRN IV 03/01/17 11:45 03/15/17 11:44 03/02/17 11:36 4 MG Heparin Sodium (Porcine) (Heparin Sq 5000 Unit/0.5ml) 5,000 unit Q12 SQ 03/02/17 09:00 04/01/17 08:59 03/02/17 09:50 5,000 UNIT Miscellaneous Information (Nursing Verbal Med Order) 1 ea ONE ONCE N/A 03/02/17 14:00 03/02/17 14:01 UNV Objective Vital Signs Date Time Temp Pulse Resp B/P (MAP) Pulse Ox O2 Delivery O2 Flow Rate FiO2 03/02/17 12:00 Room Air 03/02/17 10:43 Room Air 03/02/17 08:33 36.7 93 18 127/81 (96) 96 03/02/17 08:00 36.7 93 18 127/81 (96) 96 03/02/17 08:00 Room Air 03/02/17 04:00 Room Air 03/02/17 03:00 36.8 87 18 130/76 (94) 98 Room Air 03/02/17 00:01 36.8 92 18 117/71 (86) 97 Room Air 03/01/17 23:59 Room Air 03/01/17 20:00 Room Air 03/01/17 19:15 36.8 94 12 121/70 (87) 97 Room Air 03/01/17 16:00 Room Air 03/01/17 15:57 36.8 91 15 115/82 (93) 100 Room Air Physical Exam General Appearance: WD/WN, no apparent distress Eyes: normal inspection, sclerae normal ENT: normal ENT inspection, pharynx normal Neck: supple, no adenopathy, trachea midline Respiratory/Chest: chest non-tender, lungs clear, normal breath sounds, no respiratory distress Cardiovascular: regular rate, rhythm, no gallop, no murmur Abdomen: normal bowel sounds, non tender, soft, no organomegaly Extremities: non-tender, no calf tenderness Neurologic/Psychiatric: alert, oriented x 3 Skin: normal color, no rash, + pertinent finding (Left upper abdominal/chest wound appears reasonably clean) Lymphatic: no adenopathy Laboratory Results RUN DATE: 03/02/17 [facility] LAB PAGE 1 RUN TIME: 806 Specimen Inquiry PATIENT: ANISH SINGH LOC: [facility] U # : [id number] AGE/SX: 22/M ROOM: [facility] REG : 02/27/[address]: Jon Juarez MD : 1995 BED: 1 DIS : STATUS: ADM IN TLOC: SPEC #: [id number] TINO: 02/28/17-UNK STATUS: RES REQ #: [id number] RECD: 02/28/[address] [facility] [address]: Jon Juarez MD SOURCE: ABSCESS ENTR: 02/28/17 [facility] DR: Quirino Valderrama MD [facility]: Nino Angela , Matthew Zamarripa M.D., Juan, M.D. ORDERED: AER/ANKUR CULTSMR Procedure Result Verified Site GRAM STAIN Final 03/01/17-721 RESULT MANY WBCs SEEN MANY GRAM POSITIVE COCCI OR AER/ANKUR CULT Preliminary 03/02/17-806 Organism 1 STAPHYLOCOCCUS AUREUS QUANITY MANY SENS SENSITIVITY TO FOLLOW SENSITIVITY RESULT INDICATES A METHICILLIN RESISTANT STAPH. AUREUS. PHONED TO [facility] ON 03/02/17 AT 0726 BY Nazanin Orozco. Results were verbalized back to BEATRICE. RESULTS WERE ALSO CALLED TO [facility] INFECTION CONTROL ANSWERING MACHINE ON 03/02/17 BY BEATRICE. 1. STAPHYLOCOCCUS AUREUS Target Route Dose RX AB Cost M.I.C. IQ ------ ----- ------ -- ------ -------- - ------ TRIMET/SULFA S <=0.5/ 9.5 * OXACILLIN R * >2 VANCOMYCIN S 1 ERYTHROMYCIN R >4 TETRACYCLINE S <=4 CLINDAMYCIN S <=0.5 DAPTOMYCIN S <=0.5 RIFAMPIN S <=1 S = SENSITIVE I = INTERMEDIATE R = RESISTANT END OF REPORT Last 24 Hours Test 03/01/17 15:54 03/01/17 16:20 03/01/17 20:22 03/01/17 20:28 Sodium Level 139 mmol/L Potassium Level 4.0 mmol/L Chloride Level 108 mmol/L Carbon Dioxide Level 24 mmol/L Anion Gap 7.0 mmol/L Blood Urea Nitrogen 16 mg/dl Creatinine 2.70 mg/dl Est Creatinine Clear Calc Drug Dose 50.3 ml/min Estimated GFR () 37.4 Estimated GFR (Non- 32.2 BUN/Creatinine Ratio 5.7 Random Glucose 162 mg/dl Calcium Level 8.5 mg/dl Total Creatine Kinase 18 U/L HIV (1&2) Ab and P24 Ag, 4th Gener NEG Bedside Glucose 164 mg/dl 173 mg/dl Urine Color YELLOW Urine Appearance CLEAR Urine pH 5.5 Urine Specific [place] 1.015 Urine Protein TRACE Urine Glucose (UA) NEG Urine Ketones NEG Urine Occult Blood NEG Urine Nitrite NEG Urine Bilirubin NEG Urine Urobilinogen NEG Urine Leukocyte Esterase NEG Urine WBC (Auto) 1-5 /hpf Urine RBC (Auto) 5-10 /hpf Urine Hyaline Casts (Auto) 1-5 /lpf Urine Epithelial Cells (Auto) 5-10 /lpf Urine Bacteria (Auto) NEG Urine Random Creatinine 50.0 mg/dl Urine Random Sodium 19 mEq/L Test 03/01/17 20:39 03/02/17 05:52 03/02/17 06:47 03/02/17 11:34 Prothrombin Time 10.7 SECONDS Prothromb Time International Ratio 1.0 White Blood Count 8.93 K/uL Red Blood Count 3.30 M/uL Hemoglobin 9.2 g/dL Hematocrit 30.0 % Mean Corpuscular Volume 90.9 fL Mean Corpuscular Hemoglobin 27.9 pg Mean Corpuscular Hemoglobin Concent 30.7 g/dl Platelet Count 273 K/uL Mean Platelet Volume 8.6 fL Neutrophils (%) (Auto) 66.5 % Lymphocytes (%) (Auto) 18.4 % Monocytes (%) (Auto) 10.9 % Eosinophils (%) (Auto) 2.9 % Basophils (%) (Auto) 0.2 % Neutrophils # (Auto) 5.94 K/uL Lymphocytes # (Auto) 1.64 K/uL Monocytes # (Auto) 0.97 K/uL Eosinophils # (Auto) 0.26 K/uL Basophils # (Auto) 0.02 K/uL RDW Standard Deviation 44.0 fL RDW Coefficient of Variation 13.2 % Immature Granulocyte % (Auto) 1.1 % Immature Granulocyte # (Auto) 0.10 K/uL Sodium Level 141 mmol/L Potassium Level 3.9 mmol/L Chloride Level 110 mmol/L Carbon Dioxide Level 24 mmol/L Anion Gap 7.0 mmol/L Blood Urea Nitrogen 17 mg/dl Creatinine 3.60 mg/dl Est Creatinine Clear Calc Drug Dose 37.7 ml/min Estimated GFR () 26.4 Estimated GFR (Non- 22.8 BUN/Creatinine Ratio 4.7 Random Glucose 97 mg/dl Calcium Level 8.6 mg/dl Magnesium Level 2.0 mg/dl Random Vancomycin Level 31.1 mcg/ml Bedside Glucose 78 mg/dl 107 mg/dl Assessment and Plan 22-year-old male with history of IV drug abuse as well as prior MRSA infection now presents with left chest wall and upper abdominal wall abscess as well as small intrapelvic abscess. Patient now s/p surgical drainage with culutures growing MRSA. Patient will be continued on vancomycin, Zosyn has been discontinued. Will hopefully be able to transition to oral clindamycin in the near future as blood cultures remain negative.
[2017-03-02] MEDS ORDERED: SODIUM CHLORIDE 0.65% NA SOLN 45 ML (OCEAN) PRN (14:15)
--- NOTE | 2017-03-02 14:47 | Nephrology Consultation ---
Nephrology Consultation Date & Providers Date of Consultation: Mar 02, 2017. Primary Care Provider: Oneil Tinajero M.D. Referring Provider: Reason for Consultation TAYLOR History of Present Illness Mr. Luis Tijerina is a 22-year-old male who was seen and evaluated this hospital room this morning. Patient's mother was at the bedside at the side of my evaluation. Nephrology consultation was requested for evaluation of acute kidney injury. Baseline renal function is normal with a serum creatinine 0.6 milligram/deciliter upon admission. On hospital day 2 creatinine increased to 1.7 milligram/deciliter. It has risen approximately 1 milligram/deciliter on daily basis since that time. Metabolic profile is otherwise normal. Urinalysis obtained yesterday morning was negative for protein. Urine microscopy was acellular. Mr. Tijerina was admitted to [facility] with a left chest wall and upper abdominal wall abscess. Patient reports that he fell while on a continuing trip approximately 3 weeks ago. He developed a small area of swelling under his ribs at that time. The lesion progressed over the course several days. He developed occasional chills and some night sweats. He denies fevers. He had prior history of a MRSA infection of his left forearm. On admission he was started on vancomycin and Zosyn. A CTA of chest abdomen and pelvis was obtained. Toradol and tramadol were given for pain. He has been hemodynamically stable. Blood cultures have been negative to date. I and D was performed on February 28. Cultures growing Staph aureus. TTE did not show evidence of endocarditis. Renal ultrasound did not show evidence of obstruction. Patient has no significant urinary complaints. He denies any prior history of kidney disease. He denies skin rashes or lesions. He denies GI symptoms. Appetite is fair. Pain is being controlled at this time with IV morphine. Past Medical/Surgical History Medical: 1. Diabetes mellitus, type 1. Hemoglobin A1c >10 2. Chronic hepatitis C, untreated 3. IV drug abuse 4. History of MRSA infection of forearm Surgical: I&D of left abdominal/chest wall subfascial abscess (02/28/17) Allergies Coded Allergies: Azithromycin (Verified Allergy, Unknown, ., 02/27/17) Cephalosporins (Verified Allergy, Unknown, unknown, 02/27/17) mother Sulfa Antibiotics (Verified Allergy, Unknown, ., 02/27/17) Inpatient Medications Current Inpatient Medications Medications (Trade) Dose Ordered Sig/Myron Route Start Time Stop Time Status Last Admin Dose Admin Acetaminophen (Tylenol Tab) 650 mg Q4H PRN PO 02/27/17 12:00 03/29/17 11:59 02/28/17 06:05 650 MG Zolpidem Tartrate (Ambien Tab) 5 mg HSZ PRN PO 02/27/17 12:00 03/29/17 11:59 03/01/17 00:03 5 MG Cholecalciferol (Vitamin D Tab) 1,000 inter.unit DAILY PO 02/28/17 09:00 03/30/17 08:59 03/02/17 09:42 1,000 INTER.UNIT Insulin Glargine (Lantus Solostar Pen) 60 units QPM SC 02/27/17 21:00 03/29/17 20:59 03/01/17 22:02 60 UNITS Tramadol HCl (Ultram Tab) 50 mg Q4H PRN PO 02/27/17 12:00 03/29/17 11:59 03/02/17 13:49 50 MG Ondansetron HCl (Zofran Inj) 4 mg Q6H PRN IV 02/27/17 12:00 03/29/17 11:59 Insulin Aspart (novoLOG ASPART) SLIDING SCALE If C... ACHS SC 02/27/17 16:30 03/29/17 16:29 03/02/17 12:30 5 UNITS Glucose (Glucose 40% Gel) UD PRN PO 02/27/17 12:00 03/29/17 11:59 Glucose (Glucose Chew Tab) 1 tabs UD PRN PO 02/27/17 12:00 03/29/17 11:59 Dextrose (Dextrose 50% 50ML Syringe) 50 ml UD PRN IV 02/27/17 12:00 03/29/17 11:59 Glucagon (Glucagon Inj) 1 mg UD PRN SQ 02/27/17 12:00 03/29/17 11:59 Vancomycin HCl (Consult) 1 ea UD PRN N/A 02/27/17 12:15 03/29/17 12:14 Famotidine (Pepcid Tab) 20 mg Q12 PO 02/28/17 21:00 03/30/17 20:59 03/02/17 09:42 20 MG Vancomycin HCl 1750 mg/Sodium Chloride 535 ml @ 200 mls/hr Q12H IV 03/01/17 18:00 03/09/17 17:59 Future Hold Morphine Sulfate (MoRPHine SULFATE INJ) 4 mg Q3H PRN IV 03/01/17 11:45 03/15/17 11:44 03/02/17 11:36 4 MG Heparin Sodium (Porcine) (Heparin Sq 5000 Unit/0.5ml) 5,000 unit Q12 SQ 03/02/17 09:00 04/01/17 08:59 03/02/17 09:50 5,000 UNIT Sodium Chloride ([place] Nasal [place]) 1 sprays PRN PRN NA 03/02/17 14:15 04/01/17 14:14 Family History Diabetes mellitus Social History Smoking Status: Current Every Day Smoker Smokeless Tobacco Use: No Alcohol Use: occasionally Drug Use: cocaine, heroin, marijuana, other Marital Status: single Housing Status: lives with family Occupation: unemployed, student Review of Systems A complete review of systems was performed. Pertinent positives are noted above. All other systems are negative. Physical Exam Date Time Temp Pulse Resp B/P (MAP) Pulse Ox O2 Delivery O2 Flow Rate FiO2 03/02/17 12:00 Room Air 03/02/17 10:43 Room Air 03/02/17 08:33 36.7 93 18 127/81 (96) 96 03/02/17 08:00 36.7 93 18 127/81 (96) 96 03/02/17 08:00 Room Air 03/02/17 04:00 Room Air 03/02/17 03:00 36.8 87 18 130/76 (94) 98 Room Air 03/02/17 00:01 36.8 92 18 117/71 (86) 97 Room Air 03/01/17 23:59 Room Air 03/01/17 20:00 Room Air 03/01/17 19:15 36.8 94 12 121/70 (87) 97 Room Air 03/01/17 16:00 Room Air 03/01/17 15:57 36.8 91 15 115/82 (93) 100 Room Air General Appearance: WD/WN, no apparent distress Head: normocephalic, atraumatic Eyes: normal inspection, sclerae normal ENT: normal ENT inspection, pharynx normal Neck: supple, no JVD Respiratory/Chest: lungs clear, no respiratory distress, no accessory muscle use Cardiovascular: regular rate, rhythm, no murmur Abdomen/GI: non tender, soft, + pertinent finding (abdominal and chest wall with dressing CDI) Back: normal inspection, no muscle spasm Extremities/Musculoskelatal: normal inspection, no pedal edema Neurologic/Psych: alert, oriented x 3 Skin: normal color Laboratory Results Last 24 Hours Test 03/01/17 15:54 03/01/17 16:20 03/01/17 20:22 03/01/17 20:28 Sodium Level 139 mmol/L Potassium Level 4.0 mmol/L Chloride Level 108 mmol/L Carbon Dioxide Level 24 mmol/L Anion Gap 7.0 mmol/L Blood Urea Nitrogen 16 mg/dl Creatinine 2.70 mg/dl Est Creatinine Clear Calc Drug Dose 50.3 ml/min Estimated GFR () 37.4 Estimated GFR (Non- 32.2 BUN/Creatinine Ratio 5.7 Random Glucose 162 mg/dl Calcium Level 8.5 mg/dl Total Creatine Kinase 18 U/L HIV (1&2) Ab and P24 Ag, 4th Gener NEG Bedside Glucose 164 mg/dl 173 mg/dl Urine Color YELLOW Urine Appearance CLEAR Urine pH 5.5 Urine Specific [place] 1.015 Urine Protein TRACE Urine Glucose (UA) NEG Urine Ketones NEG Urine Occult Blood NEG Urine Nitrite NEG Urine Bilirubin NEG Urine Urobilinogen NEG Urine Leukocyte Esterase NEG Urine WBC (Auto) 1-5 /hpf Urine RBC (Auto) 5-10 /hpf Urine Hyaline Casts (Auto) 1-5 /lpf Urine Epithelial Cells (Auto) 5-10 /lpf Urine Bacteria (Auto) NEG Urine Random Creatinine 50.0 mg/dl Urine Random Sodium 19 mEq/L Test 03/01/17 20:39 03/02/17 05:52 03/02/17 06:47 03/02/17 11:34 Prothrombin Time 10.7 SECONDS Prothromb Time International Ratio 1.0 White Blood Count 8.93 K/uL Red Blood Count 3.30 M/uL Hemoglobin 9.2 g/dL Hematocrit 30.0 % Mean Corpuscular Volume 90.9 fL Mean Corpuscular Hemoglobin 27.9 pg Mean Corpuscular Hemoglobin Concent 30.7 g/dl Platelet Count 273 K/uL Mean Platelet Volume 8.6 fL Neutrophils (%) (Auto) 66.5 % Lymphocytes (%) (Auto) 18.4 % Monocytes (%) (Auto) 10.9 % Eosinophils (%) (Auto) 2.9 % Basophils (%) (Auto) 0.2 % Neutrophils # (Auto) 5.94 K/uL Lymphocytes # (Auto) 1.64 K/uL Monocytes # (Auto) 0.97 K/uL Eosinophils # (Auto) 0.26 K/uL Basophils # (Auto) 0.02 K/uL RDW Standard Deviation 44.0 fL RDW Coefficient of Variation 13.2 % Immature Granulocyte % (Auto) 1.1 % Immature Granulocyte # (Auto) 0.10 K/uL Sodium Level 141 mmol/L Potassium Level 3.9 mmol/L Chloride Level 110 mmol/L Carbon Dioxide Level 24 mmol/L Anion Gap 7.0 mmol/L Blood Urea Nitrogen 17 mg/dl Creatinine 3.60 mg/dl Est Creatinine Clear Calc Drug Dose 37.7 ml/min Estimated GFR () 26.4 Estimated GFR (Non- 22.8 BUN/Creatinine Ratio 4.7 Random Glucose 97 mg/dl Calcium Level 8.6 mg/dl Magnesium Level 2.0 mg/dl Random Vancomycin Level 31.1 mcg/ml Bedside Glucose 78 mg/dl 107 mg/dl Impression (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 Tijerina is a 22-year-old male with diabetes mellitus type 1, a history of IV drug abuse and chronic hepatitis-C. He was admitted with a left chest wall/upper abdominal wall abscess as well as a small intrapelvic abscess. Chest wall abscess I&D performed on 02/28/17. Cultures from drainage growing MRSA. Blood cultures have been negative to day. TTE did not show any vegetation or evidence of valvular heart disease. He remains on treatment with vancomycin. Serum creatinine was 0.6 mg/dL on admission. Creatinine has steadily increased approximately 1 mg/dL daily since admission. Metabolic profile is otherwise normal but glomerular filtration is significantly impaired. I discussed TAYLOR in detail with the patient and his mother. Blood pressure and volume status are appropriate. Renal US was reviewed and normal. Urine analysis yesterday AM was unremarkable with acellular microscopy. Clinical presentation is most consistent with ATN. There was not significant evidence of acute GN on urine studies. Clinical presentation would be atypical for post infectious GN, IE or cryoglobulinemia. AIN would appear less likely. ATN can be attributed to infection, CT with contrast as well as medications including Toradol. Recommendations TAYLOR: -- Serum complement levels pending -- Repeat UA/microscopy tomorrow AM -- Monitor metabolic profile daily -- Stop Toradol and avoid NSAIDs -- Monitor vancomycin level prior to each dose -- Document I/O's
--- NOTE | 2017-03-02 16:32 | Medical Student: [facility] ---
Med Student Progress Note Date of Service Mar 02, 2017. Subjective Pt evaluation today including: conversation w/ patient, conversation w/ family , physical exam, chart review, lab review, review of studies, review of inpatient medication list Pain: 01/03 PO Intake: normal Voiding: no voiding problems This is 22 year-old male with history of type 1DM, Hepatitis C, and IVDA presented on Sep 3 with severe left chest pain. Per record, he was canoeing and fell and was seen 5 days ago for this pain. CXR at that time is negative for fractures. During this admission, Chest CT and Abd/pelvis CT 02/27 show 6.4x3.5 cm abscess/hematoma on the left inferior chest/upper abdomen and 2.5 cm abscess right obturator internus. He went for I&D yesterday and abscess culture shows Staph. aureus. Today, he states that he still has a lot of pain despite pain medications, mostly at the incision site. Breathing is easier with less packing in incision site. Also complains of discomfort on the right side of abdomen. He denies fever /chills/N/V. No BM since yesterday. No signs of infection at the incision site, some mild clear/brown discharge. Review of Systems Constitutional: No fever, No chills Eyes: No worsening of vision ENT: No hearing loss Respiratory: No shortness of breath Cardiac: No chest pain Abdomen: + pain, + constipation, No nausea, No vomiting Musculoskeletal: No joint pain Male : No dysuria Psychiatric: + depression symptoms, + anxiety Objective Vital Signs Date Time Temp Pulse Resp B/P (MAP) Pulse Ox O2 Delivery O2 Flow Rate FiO2 03/02/17 12:00 Room Air 03/02/17 10:43 Room Air 03/02/17 08:33 36.7 93 18 127/81 (96) 96 03/02/17 08:00 36.7 93 18 127/81 (96) 96 03/02/17 08:00 Room Air 03/02/17 04:00 Room Air 03/02/17 03:00 36.8 87 18 130/76 (94) 98 Room Air 03/02/17 00:01 36.8 92 18 117/71 (86) 97 Room Air 03/01/17 23:59 Room Air 03/01/17 20:00 Room Air 03/01/17 19:15 36.8 94 12 121/70 (87) 97 Room Air 03/01/17 16:00 Room Air 03/01/17 15:57 36.8 91 15 115/82 (93) 100 Room Air 03/01/17 13:53 Room Air Physical Exam General Appearance: WD/WN, + mild distress Eyes: bilateral eyes normal inspection ENT: hearing grossly normal Neck: supple Respiratory/Chest: lungs clear, normal breath sounds, no respiratory distress, no accessory muscle use Cardiovascular: regular rate, rhythm, no edema, no murmur Abdomen: normal bowel sounds, soft, + tenderness (right side) Extremities: normal inspection, no pedal edema Neurologic/Psychiatric: alert, normal mood/affect, oriented x 3 Comments: Clean wound site. No erythema. Some clear, brown discharge. Laboratory Results Last 24 Hours Test 03/01/17 15:54 03/01/17 16:20 03/01/17 20:22 03/01/17 20:28 Sodium Level 139 mmol/L Potassium Level 4.0 mmol/L Chloride Level 108 mmol/L Carbon Dioxide Level 24 mmol/L Anion Gap 7.0 mmol/L Blood Urea Nitrogen 16 mg/dl Creatinine 2.70 mg/dl Est Creatinine Clear Calc Drug Dose 50.3 ml/min Estimated GFR () 37.4 Estimated GFR (Non- 32.2 BUN/Creatinine Ratio 5.7 Random Glucose 162 mg/dl Calcium Level 8.5 mg/dl Total Creatine Kinase 18 U/L HIV (1&2) Ab and P24 Ag, 4th Gener NEG Bedside Glucose 164 mg/dl 173 mg/dl Urine Color YELLOW Urine Appearance CLEAR Urine pH 5.5 Urine Specific [place] 1.015 Urine Protein TRACE Urine Glucose (UA) NEG Urine Ketones NEG Urine Occult Blood NEG Urine Nitrite NEG Urine Bilirubin NEG Urine Urobilinogen NEG Urine Leukocyte Esterase NEG Urine WBC (Auto) 1-5 /hpf Urine RBC (Auto) 5-10 /hpf Urine Hyaline Casts (Auto) 1-5 /lpf Urine Epithelial Cells (Auto) 5-10 /lpf Urine Bacteria (Auto) NEG Urine Random Creatinine 50.0 mg/dl Urine Random Sodium 19 mEq/L Test 03/01/17 20:39 03/02/17 05:52 03/02/17 06:47 03/02/17 11:34 Prothrombin Time 10.7 SECONDS Prothromb Time International Ratio 1.0 White Blood Count 8.93 K/uL Red Blood Count 3.30 M/uL Hemoglobin 9.2 g/dL Hematocrit 30.0 % Mean Corpuscular Volume 90.9 fL Mean Corpuscular Hemoglobin 27.9 pg Mean Corpuscular Hemoglobin Concent 30.7 g/dl Platelet Count 273 K/uL Mean Platelet Volume 8.6 fL Neutrophils (%) (Auto) 66.5 % Lymphocytes (%) (Auto) 18.4 % Monocytes (%) (Auto) 10.9 % Eosinophils (%) (Auto) 2.9 % Basophils (%) (Auto) 0.2 % Neutrophils # (Auto) 5.94 K/uL Lymphocytes # (Auto) 1.64 K/uL Monocytes # (Auto) 0.97 K/uL Eosinophils # (Auto) 0.26 K/uL Basophils # (Auto) 0.02 K/uL RDW Standard Deviation 44.0 fL RDW Coefficient of Variation 13.2 % Immature Granulocyte % (Auto) 1.1 % Immature Granulocyte # (Auto) 0.10 K/uL Sodium Level 141 mmol/L Potassium Level 3.9 mmol/L Chloride Level 110 mmol/L Carbon Dioxide Level 24 mmol/L Anion Gap 7.0 mmol/L Blood Urea Nitrogen 17 mg/dl Creatinine 3.60 mg/dl Est Creatinine Clear Calc Drug Dose 37.7 ml/min Estimated GFR () 26.4 Estimated GFR (Non- 22.8 BUN/Creatinine Ratio 4.7 Random Glucose 97 mg/dl Calcium Level 8.6 mg/dl Magnesium Level 2.0 mg/dl Random Vancomycin Level 31.1 mcg/ml Bedside Glucose 78 mg/dl 107 mg/dl Medications Current Inpatient Medications Medications (Trade) Dose Ordered Sig/Myron Route Start Time Stop Time Status Last Admin Dose Admin Acetaminophen (Tylenol Tab) 650 mg Q4H PRN PO 02/27/17 12:00 03/29/17 11:59 02/28/17 06:05 650 MG Zolpidem Tartrate (Ambien Tab) 5 mg HSZ PRN PO 02/27/17 12:00 03/29/17 11:59 03/01/17 00:03 5 MG Cholecalciferol (Vitamin D Tab) 1,000 inter.unit DAILY PO 02/28/17 09:00 03/30/17 08:59 03/02/17 09:42 1,000 INTER.UNIT Insulin Glargine (Lantus Solostar Pen) 60 units QPM SC 02/27/17 21:00 03/29/17 20:59 03/01/17 22:02 60 UNITS Tramadol HCl (Ultram Tab) 50 mg Q4H PRN PO 02/27/17 12:00 03/29/17 11:59 03/01/17 11:23 50 MG Ondansetron HCl (Zofran Inj) 4 mg Q6H PRN IV 02/27/17 12:00 03/29/17 11:59 Insulin Aspart (novoLOG ASPART) SLIDING SCALE If C... ACHS SC 02/27/17 16:30 03/29/17 16:29 03/02/17 12:30 5 UNITS Glucose (Glucose 40% Gel) UD PRN PO 02/27/17 12:00 03/29/17 11:59 Glucose (Glucose Chew Tab) 1 tabs UD PRN PO 02/27/17 12:00 03/29/17 11:59 Dextrose (Dextrose 50% 50ML Syringe) 50 ml UD PRN IV 02/27/17 12:00 03/29/17 11:59 Glucagon (Glucagon Inj) 1 mg UD PRN SQ 02/27/17 12:00 03/29/17 11:59 Vancomycin HCl (Consult) 1 ea UD PRN N/A 02/27/17 12:15 03/29/17 12:14 Piperacillin Sod/ Tazobactam Sod 3.375 gm/Dextrose 115 ml @ 28.75 mls/ hr Q8H IV 02/28/17 09:00 03/10/17 08:59 03/02/17 09:41 28.75 MLS/HR Piperacillin Sod/ Tazobactam Sod (Consult) 1 ea UD PRN N/A 02/28/17 08:45 03/30/17 08:44 Famotidine (Pepcid Tab) 20 mg Q12 PO 02/28/17 21:00 03/30/17 20:59 03/02/17 09:42 20 MG Vancomycin HCl 1750 mg/Sodium Chloride 535 ml @ 200 mls/hr Q12H IV 03/01/17 18:00 03/09/17 17:59 Future Hold Morphine Sulfate (MoRPHine SULFATE INJ) 4 mg Q3H PRN IV 03/01/17 11:45 03/15/17 11:44 03/02/17 11:36 4 MG Sodium Chloride 1,000 ml @ 100 mls/hr Q10H IV 03/01/17 17:45 03/31/17 17:44 03/02/17 06:26 100 MLS/HR Heparin Sodium (Porcine) (Heparin Sq 5000 Unit/0.5ml) 5,000 unit Q12 SQ 03/02/17 09:00 04/01/17 08:59 03/02/17 09:50 5,000 UNIT Assessment and Plan Assessment and Plan: This is 22 year-old male with history of type 1DM, Hepatitis C, and IVDA presented on Feb 27 with severe left chest pain. Per record, he was canoeing and fell and was seen 6 days ago for this pain. CXR at that time is negative for fractures. During this admission, Chest CT and Abd/pelvis CT 02/27 show 6.4x3.5 cm abscess/hematoma on the left inferior chest/upper abdomen and 2.5 cm abscess right obturator internus. He went for I&D on 02/28 and abscess culture shows Staph. aureus. Blood culture is negative up to date. Abscesses - Wound Vac applied today - Discontinue IV Fluid and Zosyn. Hold Vancomycin. Blood culture is negative at this point. TTE is negative for abnormalities. - Discontinue Toradol and continue with tramadol morphine and for pain control. - IR is considered for pelvic abscess. Hold for now. Acute Kidney Injury - Cr is increasing (today 3.6). Nephrology was consulted and recommended to stop NSAIDs, monitor vancomycin level before each dose. C3/C4 pending. UA again tomorrow. - Renal US is negative. Continue monitor Cr. Type 1 DM - Stable - Continue with Novolog and Lantus IVDU - HIV test - negative - Psychiatrist consulted. Patient feels anxious while in the hospital and agrees that if symptoms get worse as outpatient, he will follow with PCP. HepC - Untreated DVT Prophylaxis - Lovanox Continued [facility] stay due to: multiple IV medications needed, other (acute kidney injury ) Discharge planning: uncertain
[2017-03-02 16:51] LABS: BUN/CREATININE RATIO 4.3 (10-20); CALCIUM 8.4 mg/dl (8.5-10.1); PHOSPHORUS 4.1 mg/dl (2.5-4.9); POTASSIUM 4.3 mmol/L (3.5-5.1)
[2017-03-02] MEDS ORDERED: ACETAMINOPHEN 500 MG TAB PO PRN (17:15)
[2017-03-02] MEDS ORDERED: CeleBREX 100 MG CAP PO SCH (21:00)
[2017-03-02] MEDS: ACETAMINOPHEN 500 MG TAB PO SCH (21:52)
[2017-03-02] MEDS: INSULIN GLARGINE SOLOSTAR 100 UNITS/ML 3 ML PEN SC SCH (22:04)
[2017-03-03] VITALS (7 sets, daily range): BP systolic 119–138; BP diastolic 78–86; PULSE 65–95; TEMP 36.6–37.2; O2SAT 96–100
[2017-03-03] MEDS ORDERED: VANCOMYCIN TROUGH SCH (05:30)
[2017-03-03] MEDS: MoRPHine SULFATE 4 MG/ML 1 ML CARP\\VIAL IV PRN (06:35)
[2017-03-03 06:44] LABS: BASO % 0.2 %; BASO ABS # 0.02 K/uL (0-0.2); COMPLETE YES; EOS % 3.8 %; HEMATOCRIT 29.2 % (42-52); IG% 2.2 %; LYMPH % 23.4 %; LYMPH ABS # 1.89 K/uL (1.2-3.4); MEAN CELL VOLUME 89.6 fL (80-100); MEAN CORPUSCULAR HEMOGLOBIN 28.8 pg (25-34); MEAN CORPUSCULAR HGB CONC 32.2 g/dl (32-36); MEAN PLATELET VOLUME 8.5 fL (7.4-10.4); NEUT % 60.4 %; PLATELET COUNT 281 K/uL (130-400); RED BLOOD COUNT 3.26 M/uL (4.7-6.1); WHITE BLOOD COUNT 8.09 K/uL (4.8-10.8)
[2017-03-03 07:26] LABS: BUN/CREATININE RATIO 4.1 (10-20); CALCIUM 8.5 mg/dl (8.5-10.1); CREATININE 4.6 mg/dl (0.60-1.40); POTASSIUM 4.5 mmol/L (3.5-5.1)
--- NOTE | 2017-03-03 09:10 | Surgery Progress Note ---
Surgery Progress Note Date of Service Mar 03, 2017. Subjective 22-year-old male status post incision and drainage of left lower chest/ abdominal wall infra-muscular MRSA abscess, POD# 3. Overall doing well, pain improving, overall he feels better but does endorse some nausea today. Denies any fevers. Cultures grew back MRSA. Continues to have worsening acute kidney injury, nephrology believes it is secondary to ATN and is monitoring. Wound care saw the patient yesterday and placed a wound VAC and will plan for Tuesday, Tuesday, and Tuesday changes. Objective Vital Signs: Date Time Temp Pulse Resp B/P (MAP) Pulse Ox O2 Delivery O2 Flow Rate FiO2 03/03/17 08:13 Room Air 03/03/17 04:29 36.6 76 14 120/81 (94) 98 Room Air 03/03/17 04:00 Room Air 03/02/17 23:59 Room Air 03/02/17 23:39 36.8 89 24 120/75 (90) 96 Room Air 03/02/17 21:00 Room Air 03/02/17 19:14 36.9 94 25 118/78 (91) 99 Room Air 03/02/17 16:00 Room Air 03/02/17 15:26 37.0 88 18 132/89 (103) 96 Room Air 03/02/17 12:00 Room Air 03/02/17 10:43 Room Air General Appearance: WD/WN, no apparent distress Head: normocephalic, atraumatic Neck: supple, no adenopathy, thyroid normal, no JVD, no carotid bruits, trachea midline Respiratory/Chest: chest non-tender, lungs clear, normal breath sounds, no respiratory distress, no accessory muscle use Cardiovascular: regular rate, rhythm, no edema, no gallop, no JVD, no murmur Abdomen: normal bowel sounds, non tender, non distended, soft, no organomegaly , no pulsatile mass Incision(s): findings (Left upper quadrant I and D wound with wound VAC in place, good seal. No evidence of cellulitis, less tender than yesterday.) Extremities: normal range of motion, non-tender, normal inspection, no pedal edema, no calf tenderness, normal capillary refill, pelvis stable Laboratory Results: Results Past 24 Hours Test 03/02/17 11:34 03/02/17 16:11 03/02/17 16:12 03/02/17 20:07 Range/Units Bedside Glucose 107 72 123 70-99 mg/dl Sodium Level 141 136-145 mmol/L Potassium Level 4.3 3.5-5.1 mmol/L Chloride Level 110 98-107 mmol/L Carbon Dioxide Level 22 21-32 mmol/L Anion Gap 9.0 3-11 mmol/L Blood Urea Nitrogen 17 7-18 mg/dl Creatinine 4.00 0.60-1.40 mg/dl Est Creatinine Clear Calc Drug Dose 34.0 ml/min Estimated GFR () 23.2 Estimated GFR (Non- 20.0 BUN/Creatinine Ratio 4.3 10-20 Random Glucose 72 70-99 mg/dl Calcium Level 8.4 8.5-10.1 mg/dl Phosphorus Level 4.1 2.5-4.9 mg/dl Albumin 1.7 3.4-5.0 gm/dl Test 03/03/17 06:11 03/03/17 06:18 Range/Units White Blood Count 8.09 4.8-10.8 K/uL Red Blood Count 3.26 4.7-6.1 M/uL Hemoglobin 9.4 14.0-18.0 g/dL Hematocrit 29.2 42-52 % Mean Corpuscular Volume 89.6 80-100 fL Mean Corpuscular Hemoglobin 28.8 25-34 pg Mean Corpuscular Hemoglobin Concent 32.2 32-36 g/dl Platelet Count 281 130-400 K/uL Mean Platelet Volume 8.5 7.4-10.4 fL Neutrophils (%) (Auto) 60.4 % Lymphocytes (%) (Auto) 23.4 % Monocytes (%) (Auto) 10.0 % Eosinophils (%) (Auto) 3.8 % Basophils (%) (Auto) 0.2 % Neutrophils # (Auto) 4.88 1.4-6.5 K/uL Lymphocytes # (Auto) 1.89 1.2-3.4 K/uL Monocytes # (Auto) 0.81 0.11-0.59 K/uL Eosinophils # (Auto) 0.31 0-0.5 K/uL Basophils # (Auto) 0.02 0-0.2 K/uL RDW Standard Deviation 42.9 36.4-46.3 fL RDW Coefficient of Variation 13.0 11.5-14.5 % Immature Granulocyte % (Auto) 2.2 % Immature Granulocyte # (Auto) 0.18 0.00-0.02 K/uL Sodium Level 140 136-145 mmol/L Potassium Level 4.5 3.5-5.1 mmol/L Chloride Level 110 98-107 mmol/L Carbon Dioxide Level 23 21-32 mmol/L Anion Gap 7.0 3-11 mmol/L Blood Urea Nitrogen 19 7-18 mg/dl Creatinine 4.60 0.60-1.40 mg/dl Est Creatinine Clear Calc Drug Dose 32.5 ml/min Estimated GFR () 19.6 Estimated GFR (Non- 16.9 BUN/Creatinine Ratio 4.1 10-20 Random Glucose 153 70-99 mg/dl Calcium Level 8.5 8.5-10.1 mg/dl Random Vancomycin Level 25.6 mcg/ml Bedside Glucose 151 70-99 mg/dl Assessment & Plan 22-year-old male pod #3 incision and drainage of left lower chest/abdominal wall infra-muscular abscess, MRSA positive. Overall he is improving from an infectious standpoint and he now has a wound VAC in place with wound care nurse following. His creatinine continues to climb and nephrology is following. Recommended continue on antibiotics. General surgery will follow peripherally as wound care will manage his wound VAC for now. I would like to see him in the clinic and perform 1 wound VAC change approximately 1-2 weeks after his discharge, the remainder can be done at the wound Care Clinic. Lindsay Virk, DO
--- NOTE | 2017-03-03 09:31 | Nephrology Progress Note ---
Nephrology Progress Note Date of Service Mar 03, 2017. Chief Complaint TAYLOR Subjective No acute events overnight. Luis reports improving chest pain. Wound vac in place. No fevers or chills. Night sweats persist. Appetite good. Edema in thighs and dependent areas of lower back. No urinary complaints. Review of Systems A complete review of systems was performed. Pertinent positives are noted above. All other systems are negative. Vital Signs Last 8 Hrs Date Time Temp Pulse Resp B/P (MAP) Pulse Ox O2 Delivery O2 Flow Rate FiO2 03/03/17 08:13 Room Air 03/03/17 04:29 36.6 76 14 120/81 (94) 98 Room Air 03/03/17 04:00 Room Air Last Recorded Weight Weight (Kilograms): 102.900 Physical Exam General Appearance: WD/WN, no apparent distress Head: normocephalic, atraumatic Eyes: normal inspection, sclerae normal ENT: normal ENT inspection, pharynx normal Neck: supple, no JVD Respiratory/Chest: lungs clear, no respiratory distress, no accessory muscle use Cardiovascular: regular rate, rhythm, no gallop, no murmur Abdomen/GI: non tender, soft Extremities/Musculoskelatal: normal inspection, no pedal edema Neurologic/Psych: alert, + depressed affect Family History Diabetes mellitus Social History Smoking Status: Never smoker Smokeless Tobacco Use: No Alcohol Use: occasionally Drug Use: cocaine, heroin, marijuana, other Marital Status: single Housing Status: lives with family Occupation: unemployed, student Laboratory Results Past 24 Hours 03/03/17 06:11 Red Blood Count 3.26, Mean Corpuscular Volume 89.6, Mean Corpuscular Hemoglobin 28.8, Mean Corpuscular Hemoglobin Concent 32.2, Mean Platelet Volume 8.5, Neutrophils (%) (Auto) 60.4, Lymphocytes (%) (Auto) 23.4, Monocytes (%) (Auto) 10.0, Eosinophils (%) (Auto) 3.8, Basophils (%) (Auto) 0.2, Neutrophils # (Auto ) 4.88, Lymphocytes # (Auto) 1.89, Monocytes # (Auto) 0.81, Eosinophils # (Auto ) 0.31, Basophils # (Auto) 0.02 03/02/17 16:12 03/03/17 06:11 Test 03/02/17 11:34 03/02/17 16:11 03/02/17 16:12 03/02/17 20:07 Bedside Glucose 107 mg/dl (70-99) 72 mg/dl (70-99) 123 mg/dl (70-99) Anion Gap 9.0 mmol/L (3-11) Est Creatinine Clear Calc Drug Dose 34.0 ml/min Estimated GFR () 23.2 Estimated GFR (Non- 20.0 BUN/Creatinine Ratio 4.3 (10-20) Calcium Level 8.4 mg/dl (8.5-10.1) Phosphorus Level 4.1 mg/dl (2.5-4.9) Albumin 1.7 gm/dl (3.4-5.0) Test 03/03/17 06:11 03/03/17 06:18 White Blood Count 8.09 K/uL (4.8-10.8) Red Blood Count 3.26 M/uL (4.7-6.1) Hemoglobin 9.4 g/dL (14.0-18.0) Hematocrit 29.2 % (42-52) Mean Corpuscular Volume 89.6 fL (80-100) Mean Corpuscular Hemoglobin 28.8 pg (25-34) Mean Corpuscular Hemoglobin Concent 32.2 g/dl (32-36) Platelet Count 281 K/uL (130-400) Mean Platelet Volume 8.5 fL (7.4-10.4) Neutrophils (%) (Auto) 60.4 % Lymphocytes (%) (Auto) 23.4 % Monocytes (%) (Auto) 10.0 % Eosinophils (%) (Auto) 3.8 % Basophils (%) (Auto) 0.2 % Neutrophils # (Auto) 4.88 K/uL (1.4-6.5) Lymphocytes # (Auto) 1.89 K/uL (1.2-3.4) Monocytes # (Auto) 0.81 K/uL (0.11-0.59) Eosinophils # (Auto) 0.31 K/uL (0-0.5) Basophils # (Auto) 0.02 K/uL (0-0.2) RDW Standard Deviation 42.9 fL (36.4-46.3) RDW Coefficient of Variation 13.0 % (11.5-14.5) Immature Granulocyte % (Auto) 2.2 % Immature Granulocyte # (Auto) 0.18 K/uL (0.00-0.02) Anion Gap 7.0 mmol/L (3-11) Est Creatinine Clear Calc Drug Dose 32.5 ml/min Estimated GFR () 19.6 Estimated GFR (Non- 16.9 BUN/Creatinine Ratio 4.1 (10-20) Calcium Level 8.5 mg/dl (8.5-10.1) Random Vancomycin Level 25.6 mcg/ml Bedside Glucose 151 mg/dl (70-99) Allergies Coded Allergies: Azithromycin (Verified Allergy, Unknown, ., 02/27/17) Cephalosporins (Verified Allergy, Unknown, unknown, 02/27/17) mother Sulfa Antibiotics (Verified Allergy, Unknown, ., 02/27/17) Medications Current Inpatient Medications Medications (Trade) Dose Ordered Sig/Myron Route Start Time Stop Time Status Last Admin Dose Admin Zolpidem Tartrate (Ambien Tab) 5 mg HSZ PRN PO 02/27/17 12:00 03/29/17 11:59 03/01/17 00:03 5 MG Cholecalciferol (Vitamin D Tab) 1,000 inter.unit DAILY PO 02/28/17 09:00 03/30/17 08:59 03/02/17 09:42 1,000 INTER.UNIT Insulin Glargine (Lantus Solostar Pen) 60 units QPM SC 02/27/17 21:00 03/29/17 20:59 03/02/17 22:04 60 UNITS Ondansetron HCl (Zofran Inj) 4 mg Q6H PRN IV 02/27/17 12:00 03/29/17 11:59 Insulin Aspart (novoLOG ASPART) SLIDING SCALE If C... ACHS SC 02/27/17 16:30 03/29/17 16:29 03/02/17 17:41 1 UNITS Glucose (Glucose 40% Gel) UD PRN PO 02/27/17 12:00 03/29/17 11:59 Glucose (Glucose Chew Tab) 1 tabs UD PRN PO 02/27/17 12:00 03/29/17 11:59 Dextrose (Dextrose 50% 50ML Syringe) 50 ml UD PRN IV 02/27/17 12:00 03/29/17 11:59 Glucagon (Glucagon Inj) 1 mg UD PRN SQ 02/27/17 12:00 03/29/17 11:59 Vancomycin HCl (Consult) 1 ea UD PRN N/A 02/27/17 12:15 03/29/17 12:14 Famotidine (Pepcid Tab) 20 mg Q12 PO 02/28/17 21:00 03/30/17 20:59 03/02/17 21:53 20 MG Vancomycin HCl 1750 mg/Sodium Chloride 535 ml @ 200 mls/hr Q12H IV 03/01/17 18:00 03/09/17 17:59 Future Hold Morphine Sulfate (MoRPHine SULFATE INJ) 4 mg Q3H PRN IV 03/01/17 11:45 03/15/17 11:44 03/03/17 06:35 4 MG Heparin Sodium (Porcine) (Heparin Sq 5000 Unit/0.5ml) 5,000 unit Q12 SQ 03/02/17 09:00 04/01/17 08:59 03/02/17 21:58 5,000 UNIT Sodium Chloride ([place] Nasal [place]) 1 sprays PRN PRN NA 03/02/17 14:15 04/01/17 14:14 Tramadol HCl (Ultram Tab) 100 mg Q6H PRN PO 03/02/17 22:00 03/29/17 11:59 Acetaminophen (Tylenol Tab) 1,000 mg BID PO 03/02/17 21:00 04/01/17 20:59 03/02/17 21:52 1,000 MG Acetaminophen (Tylenol Tab) 1,000 mg Q12 PRN PO 03/02/17 17:15 04/01/17 17:14 Impression (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 Tijerina is a 22-year-old male with diabetes mellitus type 1, a history of IV drug abuse and chronic hepatitis-C. He was admitted with a left chest wall/upper abdominal wall abscess as well as a small intrapelvic abscess. Chest wall abscess I&D performed on 02/28/17. Cultures from drainage growing MRSA. Blood cultures have been negative to date. TTE did not show any vegetation or evidence of valvular heart disease. He remains on treatment with vancomycin. Vancomycin level remains >20 today. Serum creatinine was 0.6 mg/dL on admission. Creatinine continues to increase approximately 1 mg/dL/day consistent with significantly impaired filtration. Metabolic profile is otherwise normal. No current role for [employer]ESS DES[employer]. Blood pressure and volume status are appropriate. Renal US was reviewed and normal. Urine analysis was unremarkable with acellular microscopy. Clinical presentation is most consistent with ATN. There was not significant evidence of acute GN on urine studies. Clinical presentation would be atypical for post infectious GN, IE or cryoglobulinemia. AIN would appear less likely. CK was not elevated to suggest pigment nephropathy. ATN can be attributed to infection, CT with contrast as well as medications including Toradol. Recommendations TAYLOR: -- Serum complement levels pending -- Repeat UA/microscopy this AM -- Monitor metabolic profile daily -- Avoid NSAIDs -- Monitor vancomycin level daily -- Document I/O's
[2017-03-03] MEDS: FAMOTIDINE 20 MG TAB PO SCH ×2 (10:39→21:18)
[2017-03-03] MEDS: CHOLECALCIFEROL 1000 INTER.UNIT TAB PO SCH (10:41)
[2017-03-03] MEDS: ACETAMINOPHEN 500 MG TAB PO SCH ×2 (10:41→21:19)
[2017-03-03] MEDS: HEPARIN SOD 5000 UNIT/0.5 ML CARP SQ SCH ×2 (10:42→21:23)
[2017-03-03] MEDS: INSULIN ASPART 100 UNITS/ML 3 ML PEN SC SCH ×5 (10:44→21:22)
[2017-03-03 16:49] LABS: PHOSPHORUS 5.2 mg/dl (2.5-4.9)
--- NOTE | 2017-03-03 18:05 | Medical Student: [facility] ---
Med Student Progress Note Date of Service Mar 03, 2017. Subjective This is 22 year-old male with history of type 1DM, Hepatitis C, and IVDA presented on Feb 27 with severe left chest pain. Per record, he was canoeing and fell and was seen 5 days ago for this pain. CXR at that time is negative for fractures. During this admission, Chest CT and Abd/pelvis CT 02/27 show 6.4x3.5 cm abscess/hematoma on the left inferior chest/upper abdomen and 2.5 cm abscess right obturator internus. He went for I&D yesterday and abscess culture shows Staph. aureus. Today, he states that pain is better. Wound vac is in place. He denies fever/ chills/N/V. Some hard stool yesterday. Review of Systems Constitutional: + fatigue, No fever, No chills Eyes: No worsening of vision Respiratory: No cough, No sputum Cardiac: + edema, No chest pain Abdomen: + constipation, No pain, No nausea, No vomiting Musculoskeletal: + swelling, No joint pain Male : No dysuria Neurologic: No memory loss Psychiatric: + depression symptoms, + anhedonism Heme: No abnormal bleeding/bruising Skin: No rash Objective Vital Signs Date Time Temp Pulse Resp B/P (MAP) Pulse Ox O2 Delivery O2 Flow Rate FiO2 03/03/17 17:02 36.9 65 18 131/86 (101) 100 Room Air 03/03/17 16:13 36.8 90 16 129/80 (96) 100 Room Air 03/03/17 16:00 Room Air 03/03/17 15:30 36.8 95 18 96 2.0 03/03/17 12:30 Room Air 03/03/17 11:40 Room Air 03/03/17 11:00 36.8 95 18 138/82 (100) 96 Room Air 03/03/17 10:37 36.6 82 12 120/81 (94) 96 Room Air 03/03/17 08:13 Room Air 03/03/17 04:29 36.6 76 14 120/81 (94) 98 Room Air 03/03/17 04:00 Room Air 03/02/17 23:59 Room Air 03/02/17 23:39 36.8 89 24 120/75 (90) 96 Room Air 03/02/17 21:00 Room Air 03/02/17 19:14 36.9 94 25 118/78 (91) 99 Room Air Physical Exam General Appearance: WD/WN, + moderate distress Eyes: bilateral eyes normal inspection ENT: hearing grossly normal Neck: supple Respiratory/Chest: lungs clear, normal breath sounds, no respiratory distress, no accessory muscle use Cardiovascular: regular rate, rhythm, no edema Abdomen: normal bowel sounds, non tender, soft Extremities: normal inspection, + swelling Neurologic/Psychiatric: alert, normal mood/affect, oriented x 3 Skin: normal color Laboratory Results Last 24 Hours Test 03/02/17 20:07 03/03/17 06:11 03/03/17 06:18 03/03/17 11:12 Bedside Glucose 123 mg/dl 151 mg/dl 214 mg/dl White Blood Count 8.09 K/uL Red Blood Count 3.26 M/uL Hemoglobin 9.4 g/dL Hematocrit 29.2 % Mean Corpuscular Volume 89.6 fL Mean Corpuscular Hemoglobin 28.8 pg Mean Corpuscular Hemoglobin Concent 32.2 g/dl Platelet Count 281 K/uL Mean Platelet Volume 8.5 fL Neutrophils (%) (Auto) 60.4 % Lymphocytes (%) (Auto) 23.4 % Monocytes (%) (Auto) 10.0 % Eosinophils (%) (Auto) 3.8 % Basophils (%) (Auto) 0.2 % Neutrophils # (Auto) 4.88 K/uL Lymphocytes # (Auto) 1.89 K/uL Monocytes # (Auto) 0.81 K/uL Eosinophils # (Auto) 0.31 K/uL Basophils # (Auto) 0.02 K/uL RDW Standard Deviation 42.9 fL RDW Coefficient of Variation 13.0 % Immature Granulocyte % (Auto) 2.2 % Immature Granulocyte # (Auto) 0.18 K/uL Sodium Level 140 mmol/L Potassium Level 4.5 mmol/L Chloride Level 110 mmol/L Carbon Dioxide Level 23 mmol/L Anion Gap 7.0 mmol/L Blood Urea Nitrogen 19 mg/dl Creatinine 4.60 mg/dl Est Creatinine Clear Calc Drug Dose 32.5 ml/min Estimated GFR () 19.6 Estimated GFR (Non- 16.9 BUN/Creatinine Ratio 4.1 Random Glucose 153 mg/dl Calcium Level 8.5 mg/dl Phosphorus Level 5.2 mg/dl Albumin 1.8 gm/dl Random Vancomycin Level 25.6 mcg/ml Medications Current Inpatient Medications Medications (Trade) Dose Ordered Sig/Myron Route Start Time Stop Time Status Last Admin Dose Admin Zolpidem Tartrate (Ambien Tab) 5 mg HSZ PRN PO 02/27/17 12:00 03/29/17 11:59 03/01/17 00:03 5 MG Cholecalciferol (Vitamin D Tab) 1,000 inter.unit DAILY PO 02/28/17 09:00 03/30/17 08:59 03/03/17 10:41 1,000 INTER.UNIT Insulin Glargine (Lantus Solostar Pen) 60 units QPM SC 02/27/17 21:00 03/29/17 20:59 03/02/17 22:04 60 UNITS Ondansetron HCl (Zofran Inj) 4 mg Q6H PRN IV 02/27/17 12:00 03/29/17 11:59 03/03/17 17:45 4 MG Insulin Aspart (novoLOG ASPART) SLIDING SCALE If C... ACHS SC 02/27/17 16:30 03/29/17 16:29 03/03/17 17:48 3 UNITS Glucose (Glucose 40% Gel) UD PRN PO 02/27/17 12:00 03/29/17 11:59 Glucose (Glucose Chew Tab) 1 tabs UD PRN PO 02/27/17 12:00 03/29/17 11:59 Dextrose (Dextrose 50% 50ML Syringe) 50 ml UD PRN IV 02/27/17 12:00 03/29/17 11:59 Glucagon (Glucagon Inj) 1 mg UD PRN SQ 02/27/17 12:00 03/29/17 11:59 Vancomycin HCl (Consult) 1 ea UD PRN N/A 02/27/17 12:15 03/29/17 12:14 Famotidine (Pepcid Tab) 20 mg Q12 PO 02/28/17 21:00 03/30/17 20:59 03/03/17 10:39 20 MG Vancomycin HCl 1750 mg/Sodium Chloride 535 ml @ 200 mls/hr Q12H IV 03/01/17 18:00 03/09/17 17:59 Future Hold Morphine Sulfate (MoRPHine SULFATE INJ) 4 mg Q3H PRN IV 03/01/17 11:45 03/15/17 11:44 03/03/17 06:35 4 MG Heparin Sodium (Porcine) (Heparin Sq 5000 Unit/0.5ml) 5,000 unit Q12 SQ 03/02/17 09:00 04/01/17 08:59 03/03/17 10:42 5,000 UNIT Sodium Chloride ([place] Nasal [place]) 1 sprays PRN PRN NA 03/02/17 14:15 04/01/17 14:14 Tramadol HCl (Ultram Tab) 100 mg Q6H PRN PO 03/02/17 22:00 03/29/17 11:59 Acetaminophen (Tylenol Tab) 1,000 mg BID PO 03/02/17 21:00 04/01/17 20:59 03/03/17 10:41 1,000 MG Acetaminophen (Tylenol Tab) 1,000 mg Q12 PRN PO 03/02/17 17:15 04/01/17 17:14 Assessment and Plan Assessment and Plan: This is 22 year-old male with history of type 1DM, Hepatitis C, and IVDA presented on Feb 27 with severe left chest pain. Per record, he was canoeing and fell and was seen 6 days ago for this pain. CXR at that time is negative for fractures. During this admission, Chest CT and Abd/pelvis CT 02/27 show 6.4x3.5 cm abscess/hematoma on the left inferior chest/upper abdomen and 2.5 cm abscess right obturator internus. He went for I&D on 02/28 and abscess culture shows Staph. aureus. Blood culture is negative up to date. Abscesses - Wound Vac in place - Continue hold on Vanco until trough is level. Pharmacy consulted and will dose Vanco base on trough level. Abscess culture grows Staph. TTE is negative for abnormalities. - Continue tramadol morphine and for pain control. - IR is considered for pelvic abscess. Hold for now. Acute Kidney Injury - Cr is increasing (today 4.7). C3 is elevated at 182. C4 is in normal range 28 - Renal US is negative. Continue monitor Cr. Type 1 DM - Stable - Continue with Novolog and Lantus IVDU - HIV test - negative - Psychiatrist consulted. Patient feels anxious while in the hospital and agrees that if symptoms get worse as outpatient, he will follow with PCP. HepC - Untreated DVT Prophylaxis - Lovanox Continued [facility] stay due to: multiple IV medications needed, other (acute kidney injury ) Discharge planning: uncertain
[2017-03-03 18:16] LABS: MANUAL MICROSCOPIC REQUIRED? NO; REVIEW REQ? NO; URINE APPEARANCE CLEAR (CLEAR); URINE BILIRUBIN NEG (NEG); URINE COLOR YELLOW; URINE EPITHELIAL CELL AUTO 0-5 /lpf (0-5); URINE NITRITE NEG (NEG); URINE SPECIFIC GRAVITY 1.015 (1.000-1.030); UROBILINOGEN NEG (NEG)
--- NOTE | 2017-03-03 19:16 | Progress Note ---
Subjective Date of Service: Mar 03, 2017. Subjective This patient has a very flat affect him seen with his mother in the room he has persistent discomfort in his abdomen slowly getting better we discussed his renal failure at length he is having making urine and having no other complaints or problems at this time I personally reviewed his lab work with him showing that his creatinine was 4.6 but his potassium and bicarbonate are acceptable Problem List Medical Problems: (1) Abscess of left forearm Status: Acute (2) Chest wall hematoma Status: Acute (3) Chronic Viral Hepatitis C Status: Chronic (4) Endocarditis Status: Acute (5) Hyperglycemia due to type 1 diabetes mellitus Status: Acute (6) IV drug abuse Status: Chronic (7) Left arm cellulitis Status: Acute (8) Rib pain on left side Status: Acute (9) Type 1 diabetes Status: Chronic Review of Systems Constitutional: No fever, No chills Respiratory: No cough, No sputum Cardiac: + chest pain (actually left upper abdomen), No orthopnea, No PND Abdomen: + pain, + nausea (left upper abdomen), No vomiting, No diarrhea ( mild ) Musculoskeletal: No joint pain, No muscle pain Neurologic: No memory loss, No paralysis Psychiatric: + depression symptoms, + anhedonism, No anxiety Objective Vital Signs Date Time Temp Pulse Resp B/P (MAP) Pulse Ox O2 Delivery O2 Flow Rate FiO2 03/03/17 04:29 36.6 76 14 120/81 (94) 98 Room Air 03/03/17 04:00 Room Air 03/02/17 23:59 Room Air 03/02/17 23:39 36.8 89 24 120/75 (90) 96 Room Air 03/02/17 21:00 Room Air 03/02/17 19:14 36.9 94 25 118/78 (91) 99 Room Air 03/02/17 16:00 Room Air 03/02/17 15:26 37.0 88 18 132/89 (103) 96 Room Air 03/02/17 12:00 Room Air 03/02/17 10:43 Room Air 03/02/17 08:33 36.7 93 18 127/81 (96) 96 03/02/17 08:00 36.7 93 18 127/81 (96) 96 03/02/17 08:00 Room Air Physical Exam General Appearance: WD/WN, + mild distress Eyes: PERRL, EOMI (urine) Neck: supple, no JVD Respiratory/Chest: chest non-tender, lungs clear, normal breath sounds Cardiovascular: regular rate, rhythm, no murmur Abdomen: normal bowel sounds, non tender, soft Extremities: no pedal edema, no calf tenderness Neurologic/Psychiatric: alert, oriented x 3 Laboratory Results Last 24 Hours Test 03/02/17 11:34 03/02/17 16:11 03/02/17 16:12 03/02/17 20:07 Bedside Glucose 107 mg/dl 72 mg/dl 123 mg/dl Sodium Level 141 mmol/L Potassium Level 4.3 mmol/L Chloride Level 110 mmol/L Carbon Dioxide Level 22 mmol/L Anion Gap 9.0 mmol/L Blood Urea Nitrogen 17 mg/dl Creatinine 4.00 mg/dl Est Creatinine Clear Calc Drug Dose 34.0 ml/min Estimated GFR () 23.2 Estimated GFR (Non- 20.0 BUN/Creatinine Ratio 4.3 Random Glucose 72 mg/dl Calcium Level 8.4 mg/dl Phosphorus Level 4.1 mg/dl Albumin 1.7 gm/dl Test 03/03/17 06:11 White Blood Count 8.09 K/uL Red Blood Count 3.26 M/uL Hemoglobin 9.4 g/dL Hematocrit 29.2 % Mean Corpuscular Volume 89.6 fL Mean Corpuscular Hemoglobin 28.8 pg Mean Corpuscular Hemoglobin Concent 32.2 g/dl Platelet Count 281 K/uL Mean Platelet Volume 8.5 fL Neutrophils (%) (Auto) 60.4 % Lymphocytes (%) (Auto) 23.4 % Monocytes (%) (Auto) 10.0 % Eosinophils (%) (Auto) 3.8 % Basophils (%) (Auto) 0.2 % Neutrophils # (Auto) 4.88 K/uL Lymphocytes # (Auto) 1.89 K/uL Monocytes # (Auto) 0.81 K/uL Eosinophils # (Auto) 0.31 K/uL Basophils # (Auto) 0.02 K/uL RDW Standard Deviation 42.9 fL RDW Coefficient of Variation 13.0 % Immature Granulocyte % (Auto) 2.2 % Immature Granulocyte # (Auto) 0.18 K/uL Sodium Level 140 mmol/L Potassium Level 4.5 mmol/L Chloride Level 110 mmol/L Carbon Dioxide Level 23 mmol/L Anion Gap 7.0 mmol/L Blood Urea Nitrogen 19 mg/dl Creatinine 4.60 mg/dl Est Creatinine Clear Calc Drug Dose 32.5 ml/min Estimated GFR () 19.6 Estimated GFR (Non- 16.9 BUN/Creatinine Ratio 4.1 Random Glucose 153 mg/dl Calcium Level 8.5 mg/dl Random Vancomycin Level 25.6 mcg/ml Assessment and Plan 22yo male sepsis from skin abscess sepsis s/p I&D by Dr. Virk. 02/28 Growing staph aureus - IV zosyn & vanco wound VAC was placed 03/03 pain is improved INitially noted small abscess in the right obturator internus muscle will follow up after discharge. echo negative for valvular vegetations. IVDA HIV negative T1DM - acceptable control lantus 60 units HS, novolog but increase correction to 20 and carb ratio of 1:6. hypokalemia, hypomagnesemia - resolved. HepC status - noted. To be positive, will need outpt follow up once recovers acute kidney failure - renal u/s normal. Nephrology is following with Dr Donis, has worsened CR to 4.6 but is maintaining his volume and electrolytes, likely atn and will get better anemia - 3 gm drop in hemoglobin since admission, now has stabilized once ivf stopped Depression was evaluated by psychiatry the patient does not want to pursue any medication at this time and states prior to this episode he was doing quite well DVT proph - heparin BID. Continued [facility] stay due to: multiple IV medications needed, other (acute kidney injury ) Discharge planning: uncertain
--- NOTE | 2017-03-03 19:34 | Infectious Disease Progress Nt ---
Progress Note Date of Service Mar 03, 2017. Subjective Pt evaluation today including: conversation w/ patient, conversation w/ family , physical exam, chart review, lab review, review of studies, conversation w/ clinical operations consultant, review of inpatient medication list Patient complaining of pain at the surgical site. Otherwise no new complaints , hemodynamically stable overnight. Remains afebrile, tolerating antibiotic without apparent difficulty. All Other Systems: Reviewed and Negative Medications Current Inpatient Medications Medications (Trade) Dose Ordered Sig/Myron Route Start Time Stop Time Status Last Admin Dose Admin Zolpidem Tartrate (Ambien Tab) 5 mg HSZ PRN PO 02/27/17 12:00 03/29/17 11:59 03/01/17 00:03 5 MG Cholecalciferol (Vitamin D Tab) 1,000 inter.unit DAILY PO 02/28/17 09:00 03/30/17 08:59 03/03/17 10:41 1,000 INTER.UNIT Insulin Glargine (Lantus Solostar Pen) 60 units QPM SC 02/27/17 21:00 03/29/17 20:59 03/02/17 22:04 60 UNITS Ondansetron HCl (Zofran Inj) 4 mg Q6H PRN IV 02/27/17 12:00 03/29/17 11:59 03/03/17 17:45 4 MG Insulin Aspart (novoLOG ASPART) SLIDING SCALE If C... ACHS SC 02/27/17 16:30 03/29/17 16:29 03/03/17 17:48 3 UNITS Glucose (Glucose 40% Gel) UD PRN PO 02/27/17 12:00 03/29/17 11:59 Glucose (Glucose Chew Tab) 1 tabs UD PRN PO 02/27/17 12:00 03/29/17 11:59 Dextrose (Dextrose 50% 50ML Syringe) 50 ml UD PRN IV 02/27/17 12:00 03/29/17 11:59 Glucagon (Glucagon Inj) 1 mg UD PRN SQ 02/27/17 12:00 03/29/17 11:59 Vancomycin HCl (Consult) 1 ea UD PRN N/A 02/27/17 12:15 03/29/17 12:14 Famotidine (Pepcid Tab) 20 mg Q12 PO 02/28/17 21:00 03/30/17 20:59 03/03/17 10:39 20 MG Vancomycin HCl 1750 mg/Sodium Chloride 535 ml @ 200 mls/hr Q12H IV 03/01/17 18:00 03/09/17 17:59 Future Hold Morphine Sulfate (MoRPHine SULFATE INJ) 4 mg Q3H PRN IV 03/01/17 11:45 03/15/17 11:44 03/03/17 06:35 4 MG Heparin Sodium (Porcine) (Heparin Sq 5000 Unit/0.5ml) 5,000 unit Q12 SQ 03/02/17 09:00 04/01/17 08:59 03/03/17 10:42 5,000 UNIT Sodium Chloride ([place] Nasal [place]) 1 sprays PRN PRN NA 03/02/17 14:15 04/01/17 14:14 Tramadol HCl (Ultram Tab) 100 mg Q6H PRN PO 03/02/17 22:00 03/29/17 11:59 Acetaminophen (Tylenol Tab) 1,000 mg BID PO 03/02/17 21:00 04/01/17 20:59 03/03/17 10:41 1,000 MG Acetaminophen (Tylenol Tab) 1,000 mg Q12 PRN PO 03/02/17 17:15 04/01/17 17:14 Objective Vital Signs Date Time Temp Pulse Resp B/P (MAP) Pulse Ox O2 Delivery O2 Flow Rate FiO2 03/03/17 17:02 36.9 65 18 131/86 (101) 100 Room Air 03/03/17 16:13 36.8 90 16 129/80 (96) 100 Room Air 03/03/17 16:00 Room Air 03/03/17 15:30 36.8 95 18 96 2.0 03/03/17 12:30 Room Air 03/03/17 11:40 Room Air 03/03/17 11:00 36.8 95 18 138/82 (100) 96 Room Air 03/03/17 10:37 36.6 82 12 120/81 (94) 96 Room Air 03/03/17 08:13 Room Air 03/03/17 04:29 36.6 76 14 120/81 (94) 98 Room Air 03/03/17 04:00 Room Air 03/02/17 23:59 Room Air 03/02/17 23:39 36.8 89 24 120/75 (90) 96 Room Air 03/02/17 21:00 Room Air Physical Exam General Appearance: WD/WN, no apparent distress Eyes: normal inspection, EOMI, sclerae normal ENT: normal ENT inspection, pharynx normal Neck: supple, no adenopathy, trachea midline Respiratory/Chest: chest non-tender, lungs clear, normal breath sounds, no respiratory distress Cardiovascular: regular rate, rhythm, no gallop, no murmur Abdomen: normal bowel sounds, soft, no organomegaly, + tenderness Extremities: non-tender, no calf tenderness Neurologic/Psychiatric: alert, oriented x 3, + pertinent finding ( Flat affect ) Skin: normal color, no rash, + pertinent finding ( surgical dressing intact) Lymphatic: no adenopathy Laboratory Results Last 24 Hours Test 03/02/17 20:07 03/03/17 00:00 03/03/17 06:11 03/03/17 06:18 Bedside Glucose 123 mg/dl 151 mg/dl Urine Color YELLOW Urine Appearance CLEAR Urine pH 5.0 Urine Specific [place] 1.015 Urine Protein NEG Urine Glucose (UA) NEG Urine Ketones NEG Urine Occult Blood NEG Urine Nitrite NEG Urine Bilirubin NEG Urine Urobilinogen NEG Urine Leukocyte Esterase NEG Urine WBC (Auto) 1-5 /hpf Urine RBC (Auto) 0-4 /hpf Urine Hyaline Casts (Auto) 0 /lpf Urine Epithelial Cells (Auto) 0-5 /lpf Urine Bacteria (Auto) NEG White Blood Count 8.09 K/uL Red Blood Count 3.26 M/uL Hemoglobin 9.4 g/dL Hematocrit 29.2 % Mean Corpuscular Volume 89.6 fL Mean Corpuscular Hemoglobin 28.8 pg Mean Corpuscular Hemoglobin Concent 32.2 g/dl Platelet Count 281 K/uL Mean Platelet Volume 8.5 fL Neutrophils (%) (Auto) 60.4 % Lymphocytes (%) (Auto) 23.4 % Monocytes (%) (Auto) 10.0 % Eosinophils (%) (Auto) 3.8 % Basophils (%) (Auto) 0.2 % Neutrophils # (Auto) 4.88 K/uL Lymphocytes # (Auto) 1.89 K/uL Monocytes # (Auto) 0.81 K/uL Eosinophils # (Auto) 0.31 K/uL Basophils # (Auto) 0.02 K/uL RDW Standard Deviation 42.9 fL RDW Coefficient of Variation 13.0 % Immature Granulocyte % (Auto) 2.2 % Immature Granulocyte # (Auto) 0.18 K/uL Sodium Level 140 mmol/L Potassium Level 4.5 mmol/L Chloride Level 110 mmol/L Carbon Dioxide Level 23 mmol/L Anion Gap 7.0 mmol/L Blood Urea Nitrogen 19 mg/dl Creatinine 4.60 mg/dl Est Creatinine Clear Calc Drug Dose 32.5 ml/min Estimated GFR () 19.6 Estimated GFR (Non- 16.9 BUN/Creatinine Ratio 4.1 Random Glucose 153 mg/dl Calcium Level 8.5 mg/dl Phosphorus Level 5.2 mg/dl Albumin 1.8 gm/dl Random Vancomycin Level 25.6 mcg/ml Test 03/03/17 11:12 03/03/17 16:35 03/03/17 17:12 Bedside Glucose 214 mg/dl 175 mg/dl 192 mg/dl Assessment and Plan 22-year-old male with history of IV drug abuse as well as prior MRSA infection now presents with left chest wall and upper abdominal wall abscess as well as small intrapelvic abscess. Patient now s/p surgical drainage with cultures growing MRSA. Patient will be continued on vancomycin, Zosyn has been discontinued. Will hopefully be able to transition to oral clindamycin in the near future as blood cultures remain negative.
[2017-03-03] MEDS: INSULIN GLARGINE SOLOSTAR 100 UNITS/ML 3 ML PEN SC SCH (21:56)
[2017-03-04 07:06] LABS: HEMATOCRIT 29.2 % (42-52); MEAN CELL VOLUME 88.5 fL (80-100); MEAN CORPUSCULAR HEMOGLOBIN 28.5 pg (25-34); MEAN CORPUSCULAR HGB CONC 32.2 g/dl (32-36); MEAN PLATELET VOLUME 8.4 fL (7.4-10.4); PLATELET COUNT 308 K/uL (130-400); WHITE BLOOD COUNT 10.64 K/uL (4.8-10.8)
[2017-03-04 07:26] VITALS: BP 122/81; PULSE 87; TEMP 37; O2SAT 94
[2017-03-04 07:42] LABS: BUN/CREATININE RATIO 5.2 (10-20); CALCIUM 8.8 mg/dl (8.5-10.1); CREATININE 5.3 mg/dl (0.60-1.40); POTASSIUM 4.5 mmol/L (3.5-5.1); PREALBUMIN 9.1 mg/dl (20-40)
--- NOTE | 2017-03-04 08:17 | Nephrology Progress Note ---
Nephrology Progress Note Date of Service Mar 04, 2017. Chief Complaint TAYLOR Subjective No acute events overnight. Luis reports mild nausea yesterday afternoon. He continues to have some discomfort over his chest but denies significant pain. No fevers or chills. Night sweats improving. He reports difficulty sleeping last night. No urinary complaints. Denies shortness of breath. Appetite good. Review of Systems A complete review of systems was performed. Pertinent positives are noted above. All other systems are negative. Vital Signs Last 8 Hrs Date Time Temp Pulse Resp B/P (MAP) Pulse Ox O2 Delivery O2 Flow Rate FiO2 03/04/17 07:26 37.0 16 122/81 (95) 94 Room Air Last Recorded Weight Weight (Kilograms): 102.900 Physical Exam General Appearance: WD/WN, no apparent distress Head: normocephalic, atraumatic Eyes: normal inspection, sclerae normal ENT: normal ENT inspection, pharynx normal Neck: supple, no JVD Respiratory/Chest: lungs clear, no respiratory distress, no accessory muscle use Cardiovascular: regular rate, rhythm, no gallop, no murmur Abdomen/GI: non tender, soft Extremities/Musculoskelatal: normal inspection, no pedal edema, + pertinent finding (dependent edema) Neurologic/Psych: alert, + depressed affect Family History Diabetes mellitus Social History Smoking Status: Never smoker Smokeless Tobacco Use: No Alcohol Use: occasionally Drug Use: cocaine, heroin, marijuana, other Marital Status: single Housing Status: lives with family Occupation: unemployed, student Laboratory Results Past 24 Hours 03/04/17 06:45 03/04/17 06:45 Test 03/03/17 11:12 03/03/17 16:35 03/03/17 17:12 03/03/17 21:04 Bedside Glucose 214 mg/dl (70-99) 175 mg/dl (70-99) 192 mg/dl (70-99) 275 mg/dl (70-99) Test 03/04/17 06:45 Red Blood Count 3.30 M/uL (4.7-6.1) Mean Corpuscular Volume 88.5 fL (80-100) Mean Corpuscular Hemoglobin 28.5 pg (25-34) Mean Corpuscular Hemoglobin Concent 32.2 g/dl (32-36) RDW Standard Deviation 42.2 fL (36.4-46.3) RDW Coefficient of Variation 12.9 % (11.5-14.5) Mean Platelet Volume 8.4 fL (7.4-10.4) Anion Gap 7.0 mmol/L (3-11) Est Creatinine Clear Calc Drug Dose 28.2 ml/min Estimated GFR () 16.5 Estimated GFR (Non- 14.3 BUN/Creatinine Ratio 5.2 (10-20) Calcium Level 8.8 mg/dl (8.5-10.1) Prealbumin 9.1 mg/dl (20-40) Random Vancomycin Level 19.4 mcg/ml Allergies Coded Allergies: Azithromycin (Verified Allergy, Unknown, ., 02/27/17) Cephalosporins (Verified Allergy, Unknown, unknown, 02/27/17) mother Sulfa Antibiotics (Verified Allergy, Unknown, ., 02/27/17) Medications Current Inpatient Medications Medications (Trade) Dose Ordered Sig/Myron Route Start Time Stop Time Status Last Admin Dose Admin Zolpidem Tartrate (Ambien Tab) 5 mg HSZ PRN PO 02/27/17 12:00 03/29/17 11:59 03/01/17 00:03 5 MG Cholecalciferol (Vitamin D Tab) 1,000 inter.unit DAILY PO 02/28/17 09:00 03/30/17 08:59 03/03/17 10:41 1,000 INTER.UNIT Insulin Glargine (Lantus Solostar Pen) 60 units QPM SC 02/27/17 21:00 03/29/17 20:59 03/03/17 21:56 60 UNITS Ondansetron HCl (Zofran Inj) 4 mg Q6H PRN IV 02/27/17 12:00 03/29/17 11:59 03/03/17 17:45 4 MG Insulin Aspart (novoLOG ASPART) SLIDING SCALE If C... ACHS SC 02/27/17 16:30 03/29/17 16:29 03/03/17 21:22 7 UNITS Glucose (Glucose 40% Gel) UD PRN PO 02/27/17 12:00 03/29/17 11:59 Glucose (Glucose Chew Tab) 1 tabs UD PRN PO 02/27/17 12:00 03/29/17 11:59 Dextrose (Dextrose 50% 50ML Syringe) 50 ml UD PRN IV 02/27/17 12:00 03/29/17 11:59 Glucagon (Glucagon Inj) 1 mg UD PRN SQ 02/27/17 12:00 03/29/17 11:59 Vancomycin HCl (Consult) 1 ea UD PRN N/A 02/27/17 12:15 03/29/17 12:14 Famotidine (Pepcid Tab) 20 mg Q12 PO 02/28/17 21:00 03/30/17 20:59 03/03/17 21:18 20 MG Vancomycin HCl 1750 mg/Sodium Chloride 535 ml @ 200 mls/hr Q12H IV 03/01/17 18:00 03/09/17 17:59 Future Hold Morphine Sulfate (MoRPHine SULFATE INJ) 4 mg Q3H PRN IV 03/01/17 11:45 03/15/17 11:44 03/03/17 06:35 4 MG Heparin Sodium (Porcine) (Heparin Sq 5000 Unit/0.5ml) 5,000 unit Q12 SQ 03/02/17 09:00 04/01/17 08:59 03/03/17 21:23 5,000 UNIT Sodium Chloride ([place] Nasal [place]) 1 sprays PRN PRN NA 03/02/17 14:15 04/01/17 14:14 Tramadol HCl (Ultram Tab) 100 mg Q6H PRN PO 03/02/17 22:00 03/29/17 11:59 Acetaminophen (Tylenol Tab) 1,000 mg BID PO 03/02/17 21:00 04/01/17 20:59 03/03/17 21:19 1,000 MG Acetaminophen (Tylenol Tab) 1,000 mg Q12 PRN PO 03/02/17 17:15 04/01/17 17:14 Impression (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 Tijerina is a 22-year-old male with diabetes mellitus type 1, a history of IV drug abuse and chronic hepatitis-C. He was admitted with a left chest wall/upper abdominal wall abscess as well as a small intrapelvic abscess. Chest wall abscess I&D performed on 02/28/17. Cultures from drainage growing MRSA. Blood cultures negative. TTE did not show any vegetation or evidence of valvular heart disease. He remains on treatment with vancomycin. Vancomycin level ~20.. Serum creatinine was 0.6 mg/dL on admission. There has been no evidence of renal recovery. Metabolic profile is otherwise normal. No emergent indication for dialysis. Preemptive education was provided today. Blood pressure and volume status are appropriate. Renal US was reviewed and normal. Urine analysis was unremarkable with acellular microscopy. Clinical presentation is most consistent with ATN. There was not significant evidence of acute GN on urine studies. Clinical presentation would be atypical for post infectious GN, IE or cryoglobulinemia. This is supported by normal serum C3/C4. AIN would appear less likely given clinical presentation. CK was not elevated to suggest pigment nephropathy. ATN can be attributed to infection, CT with contrast as well as medications including Toradol. Recommendations TAYLOR: -- Serum complement levels normal -- Repeat UA/microscopy bland and acellular -- Monitor metabolic profile twice daily -- Avoid NSAIDs -- Monitor vancomycin level daily -- Document I/O's -- Potassium restrict diet
[2017-03-04] MEDS: INSULIN ASPART 100 UNITS/ML 3 ML PEN SC SCH ×4 (08:33→22:13)
[2017-03-04] MEDS: FAMOTIDINE 20 MG TAB PO SCH ×2 (08:34→22:10)
[2017-03-04] MEDS: ACETAMINOPHEN 500 MG TAB PO SCH ×2 (08:35→22:10)
[2017-03-04] MEDS: CHOLECALCIFEROL 1000 INTER.UNIT TAB PO SCH (08:35)
[2017-03-04] MEDS: HEPARIN SOD 5000 UNIT/0.5 ML CARP SQ SCH ×2 (08:35→22:15)
[2017-03-04 14:58] VITALS: BP 131/77; PULSE 66; TEMP 36.9; O2SAT 95
[2017-03-04] MEDS: DAPTOmycin IV 400 MG in SODIUM CHLORIDE 0.9% 50ML 50 ML IV SCH (16:04)
--- NOTE | 2017-03-04 19:07 | Progress Note ---
Subjective Date of Service: Mar 04, 2017. Subjective Patient is concerned about elevation of his creatinine although he is euvolemic and maintaining his electrolytes. Daptomycin has been added to his regimen. Patient has improved abdominal pain. Others at the bedside and updated Problem List Medical Problems: (1) Abscess of left forearm Status: Acute (2) Chest wall hematoma Status: Acute (3) Chronic Viral Hepatitis C Status: Chronic (4) Endocarditis Status: Acute (5) Hyperglycemia due to type 1 diabetes mellitus Status: Acute (6) IV drug abuse Status: Chronic (7) Left arm cellulitis Status: Acute (8) Rib pain on left side Status: Acute (9) Type 1 diabetes Status: Chronic Objective Vital Signs Date Time Temp Pulse Resp B/P (MAP) Pulse Ox O2 Delivery O2 Flow Rate FiO2 03/04/17 14:58 36.9 66 18 131/77 (95) 95 Room Air 03/04/17 08:10 Room Air 03/04/17 07:26 37.0 87 16 122/81 (95) 94 Room Air 03/03/17 23:51 Room Air 03/03/17 22:50 37.2 87 17 119/78 (92) 97 Room Air Physical Exam General Appearance: WD/WN, + mild distress Eyes: PERRL, EOMI Respiratory/Chest: lungs clear, normal breath sounds Cardiovascular: regular rate, rhythm, no murmur Abdomen: normal bowel sounds, soft, + pertinent finding (patient remains tender in the area surrounding his left upper quadrant abdominal wound VAC site) Extremities: no pedal edema, no calf tenderness Laboratory Results Last 24 Hours Test 03/03/17 21:04 03/04/17 06:45 03/04/17 08:08 03/04/17 11:54 Bedside Glucose 275 mg/dl 208 mg/dl 218 mg/dl White Blood Count 10.64 K/uL Red Blood Count 3.30 M/uL Hemoglobin 9.4 g/dL Hematocrit 29.2 % Mean Corpuscular Volume 88.5 fL Mean Corpuscular Hemoglobin 28.5 pg Mean Corpuscular Hemoglobin Concent 32.2 g/dl RDW Standard Deviation 42.2 fL RDW Coefficient of Variation 12.9 % Platelet Count 308 K/uL Mean Platelet Volume 8.4 fL Sodium Level 139 mmol/L Potassium Level 4.5 mmol/L Chloride Level 109 mmol/L Carbon Dioxide Level 23 mmol/L Anion Gap 7.0 mmol/L Blood Urea Nitrogen 28 mg/dl Creatinine 5.30 mg/dl Est Creatinine Clear Calc Drug Dose 28.2 ml/min Estimated GFR () 16.5 Estimated GFR (Non- 14.3 BUN/Creatinine Ratio 5.2 Random Glucose 222 mg/dl Calcium Level 8.8 mg/dl Prealbumin 9.1 mg/dl Random Vancomycin Level 19.4 mcg/ml Test 03/04/17 15:10 03/04/17 17:03 Stool Occult Blood NEGATIVE Bedside Glucose 112 mg/dl Assessment and Plan 22yo male sepsis from skin abscess sepsis s/p I&D by Dr. Virk. 02/28 Growing staph aureus - IV zosyn & vanco wound VAC was placed 03/03 pain is improved INitially noted small abscess in the right obturator internus muscle because of continued worsening of renal failure we will pursue abdominal renal ultrasound with also considerations of evaluation of the obturator abscess echo negative for valvular vegetations. IVDA HIV negative T1DM -remains in control lantus 60 units HS, novolog but increase correction to 20 and carb ratio of 1:6. hypokalemia, hypomagnesemia -replete HepC status - noted. To be positive, we'll arrange for outpt follow up once recovers acute kidney failure - renal u/s normal. Nephrology is following with Dr Donis, has worsened CR to 4.6 but is maintaining his volume and electrolytes, likely atn and hopefully will get better anemia - 3 gm drop in hemoglobin since admission, continues to be stable Depression remains with depressed affect in the hospital but was evaluated by psychiatry the patient does not want to pursue any medication at this time and states prior to this episode he was doing quite well DVT proph - heparin BID. Continued [facility] stay due to: multiple IV medications needed, other (acute kidney injury ) Discharge planning: uncertain
[2017-03-04] MEDS: INSULIN GLARGINE SOLOSTAR 100 UNITS/ML 3 ML PEN SC SCH (22:11)
[2017-03-04 22:43] VITALS: BP 143/81; PULSE 90; TEMP 37.1; O2SAT 98
[2017-03-05] MEDS ORDERED: NURSING DECISION MEDICATION ORDER SCH (01:15)
[2017-03-05] MEDS ORDERED: INSULIN ASPART 100 UNITS/ML 3 ML PEN SC SCH (06:00)
[2017-03-05 07:02] VITALS: BP 130/82; PULSE 80; TEMP 37; O2SAT 96
[2017-03-05] MEDS: INSULIN ASPART 100 UNITS/ML 3 ML PEN SC SCH ×4 (08:00→21:45)
[2017-03-05] MEDS ORDERED: NURSING VERBAL MED ORDER ONE ×2 (08:15→11:15)
[2017-03-05 08:19] LABS: CALCIUM 8.8 mg/dl (8.5-10.1); CREATININE 5.8 mg/dl (0.60-1.40); POTASSIUM 4.3 mmol/L (3.5-5.1)
[2017-03-05] MEDS: HEPARIN SOD 5000 UNIT/0.5 ML CARP SQ SCH ×2 (09:00→21:47)
--- NOTE | 2017-03-05 09:32 | DIAGNOSTIC IMAGING REPORT ---
PELVIS W/ORAL CONT ONLY (CT) CLINICAL HISTORY: Infection Abscess TECHNIQUE: Transaxial acquisition with multi axial reformatted images. COMPARISON STUDY: 02/27/2017. FINDINGS: Unchanging right obturator internus solid complex fluid pocket measuring 2.4 cm at maximum. This is similar as compared to the prior study. Trace amount of reactive fluid at the current time within the pelvic cul-de-sac. Bowel pattern remains nonobstructive. Mild increase in density of the subcutaneous fat involving the flanks suggesting a component of anasarca. No additional collections are identified. The upper abdomen was not evaluated in this exam. IMPRESSION: 1. No major change in the 2.4 cm right obturator internus intramuscular collection. 2. Interval development of a trace amount of reactive fluid within the pelvic cul-de-sac. 3. Mild interval body wall anasarca. The above report was generated using voice recognition software. It may contain grammatical, syntax or spelling errors. Electronically signed by: Tacos Rodas M.D. 03/05/2017 9:31 AM Dictated Date/Time: 03/05/2017 9:26 AM
[2017-03-05] MEDS: ACETAMINOPHEN 500 MG TAB PO SCH ×2 (09:47→21:56)
[2017-03-05] MEDS: CHOLECALCIFEROL 1000 INTER.UNIT TAB PO SCH (09:47)
[2017-03-05] MEDS: FAMOTIDINE 20 MG TAB PO SCH ×2 (09:47→22:10)
--- NOTE | 2017-03-05 12:16 | Nephrology Progress Note ---
Nephrology Progress Note Date of Service Mar 05, 2017. Chief Complaint TAYLOR Subjective No acute events overnight. No complaints this morning. Mr. Tijerina is sleeping comfortably in bed. He denies nausea. Appetite is good. He denies fevers or chills. He denies shortness of breath. No urinary complaints. Pain controlled. Review of Systems A complete review of systems was performed. Pertinent positives are noted above. All other systems are negative. Vital Signs Last 8 Hrs Date Time Temp Pulse Resp B/P (MAP) Pulse Ox O2 Delivery O2 Flow Rate FiO2 03/05/17 07:30 Room Air 03/05/17 07:02 37.0 80 18 130/82 (98) 96 Room Air Last Recorded Weight Weight (Kilograms): 102.900 Physical Exam General Appearance: WD/WN, no apparent distress Head: normocephalic, atraumatic Eyes: normal inspection, sclerae normal ENT: normal ENT inspection, pharynx normal Neck: supple, no JVD Respiratory/Chest: lungs clear, no respiratory distress, no accessory muscle use Cardiovascular: regular rate, rhythm, no gallop Abdomen/GI: non tender, soft Extremities/Musculoskelatal: normal inspection, no pedal edema Neurologic/Psych: alert, oriented x 3 Family History Diabetes mellitus Social History Smoking Status: Never smoker Smokeless Tobacco Use: No Alcohol Use: occasionally Drug Use: cocaine, heroin, marijuana, other Marital Status: single Housing Status: lives with family Occupation: unemployed, student Laboratory Results Past 24 Hours 03/05/17 07:00 Test 03/04/17 15:10 03/04/17 17:03 03/04/17 20:50 03/05/17 05:48 Stool Occult Blood NEGATIVE (NEGATIVE) Bedside Glucose 112 mg/dl (70-99) 160 mg/dl (70-99) 180 mg/dl (70-99) Test 03/05/17 07:00 Anion Gap 9.0 mmol/L (3-11) Est Creatinine Clear Calc Drug Dose 25.8 ml/min Estimated GFR () 14.8 Estimated GFR (Non- 12.8 BUN/Creatinine Ratio 5.0 (10-20) Calcium Level 8.8 mg/dl (8.5-10.1) Allergies Coded Allergies: Azithromycin (Verified Allergy, Unknown, ., 02/27/17) Cephalosporins (Verified Allergy, Unknown, unknown, 02/27/17) mother Sulfa Antibiotics (Verified Allergy, Unknown, ., 02/27/17) Medications Current Inpatient Medications Medications (Trade) Dose Ordered Sig/Myron Route Start Time Stop Time Status Last Admin Dose Admin Zolpidem Tartrate (Ambien Tab) 5 mg HSZ PRN PO 02/27/17 12:00 03/29/17 11:59 03/01/17 00:03 5 MG Cholecalciferol (Vitamin D Tab) 1,000 inter.unit DAILY PO 02/28/17 09:00 03/30/17 08:59 03/05/17 09:47 1,000 INTER.UNIT Insulin Glargine (Lantus Solostar Pen) 60 units QPM SC 02/27/17 21:00 03/29/17 20:59 03/04/17 22:11 60 UNITS Ondansetron HCl (Zofran Inj) 4 mg Q6H PRN IV 02/27/17 12:00 03/29/17 11:59 03/03/17 17:45 4 MG Glucose (Glucose 40% Gel) UD PRN PO 02/27/17 12:00 03/29/17 11:59 Glucose (Glucose Chew Tab) 1 tabs UD PRN PO 02/27/17 12:00 03/29/17 11:59 Dextrose (Dextrose 50% 50ML Syringe) 50 ml UD PRN IV 02/27/17 12:00 03/29/17 11:59 Glucagon (Glucagon Inj) 1 mg UD PRN SQ 02/27/17 12:00 03/29/17 11:59 Famotidine (Pepcid Tab) 20 mg Q12 PO 02/28/17 21:00 03/30/17 20:59 03/05/17 09:47 20 MG Morphine Sulfate (MoRPHine SULFATE INJ) 4 mg Q3H PRN IV 03/01/17 11:45 03/15/17 11:44 03/03/17 06:35 4 MG Heparin Sodium (Porcine) (Heparin Sq 5000 Unit/0.5ml) 5,000 unit Q12 SQ 03/02/17 09:00 04/01/17 08:59 03/04/17 22:15 5,000 UNIT Sodium Chloride ([place] Nasal [place]) 1 sprays PRN PRN NA 03/02/17 14:15 04/01/17 14:14 Tramadol HCl (Ultram Tab) 100 mg Q6H PRN PO 03/02/17 22:00 03/29/17 11:59 Acetaminophen (Tylenol Tab) 1,000 mg BID PO 03/02/17 21:00 04/01/17 20:59 03/05/17 09:47 1,000 MG Acetaminophen (Tylenol Tab) 1,000 mg Q12 PRN PO 03/02/17 17:15 04/01/17 17:14 Daptomycin 400 mg/ Sodium Chloride 58 ml @ 120 mls/hr Q48H IV 03/04/17 16:00 03/14/17 15:59 03/04/17 16:04 120 MLS/HR Insulin Aspart (novoLOG ASPART) SLIDING SCALE If C... ACHS SC 03/05/17 12:00 04/04/17 11:59 Impression (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 Tijerina is a 22-year-old male with diabetes mellitus type 1, a history of IV drug abuse and chronic hepatitis-C. He was admitted with a left chest wall/upper abdominal wall abscess as well as a small intrapelvic abscess. Chest wall abscess I&D performed on 02/28/17. Cultures from drainage growing MRSA. Blood cultures negative. TTE did not show any vegetation or evidence of valvular heart disease. CT of the pelvis yesterday shows a stable 2.4 cm right obturator internus intramuscular collection. Vancomycin switched to daptomycin due to renal dysfunction. Serum creatinine was 0.6 mg/dL on admission. There has been no evidence of renal recovery. Metabolic profile is otherwise normal. No emergent indication for dialysis. Preemptive education has been provided daily. Blood pressure and volume status are appropriate. Renal US normal. Urine analysis was unremarkable with acellular microscopy. Clinical presentation is most consistent with ATN. There was not significant evidence of acute GN on urine studies. Clinical presentation would be atypical for post infectious GN, IE or cryoglobulinemia. This is supported by normal serum C3/C4. AIN would appear less likely given clinical presentation. CK was not elevated to suggest pigment nephropathy. ATN can be attributed to infection , CT with contrast as well as medications including Toradol. Recommendations TAYLOR: -- Monitor serial renal profile daily -- Avoid NSAIDs -- Document I/O's -- Potassium restrict diet Diabetes mellitus: -- Glucose control appropriate Soft tissue abscess: -- Monitor CPK weekly on daptomycin Hepatitis C: -- Check liver profile with AM labs
[2017-03-05 13:42] LABS: URINE APPEARANCE CLEAR (CLEAR); URINE BILIRUBIN NEG (NEG); URINE COLOR YELLOW; URINE NITRITE NEG (NEG); URINE SPECIFIC GRAVITY 1.014 (1.000-1.030); UROBILINOGEN NEG (NEG)
[2017-03-05 13:52] LABS: MANUAL MICROSCOPIC REQUIRED? NO; REVIEW REQ? NO
--- NOTE | 2017-03-05 14:49 | Progress Note ---
Subjective Date of Service: Mar 05, 2017. Subjective Patient has no complaints or problems and is manifesting slight peripheral edema today, we discussed the results of the CT scan showing persistent fluid collection in his right iliopsoas area. Renal function continues is generally slightly declined Problem List Medical Problems: (1) Abscess of left forearm Status: Acute (2) Chest wall hematoma Status: Acute (3) Chronic Viral Hepatitis C Status: Chronic (4) Endocarditis Status: Acute (5) Hyperglycemia due to type 1 diabetes mellitus Status: Acute (6) IV drug abuse Status: Chronic (7) Left arm cellulitis Status: Acute (8) Rib pain on left side Status: Acute (9) Type 1 diabetes Status: Chronic Review of Systems Constitutional: + weakness, + fatigue, No fever, No chills Respiratory: No cough, No shortness of breath, No dyspnea on exertion Cardiac: + edema, No chest pain, No orthopnea, No PND Abdomen: No pain, No nausea, No vomiting, No diarrhea Neurologic: No memory loss, No paralysis Objective Vital Signs Date Time Temp Pulse Resp B/P (MAP) Pulse Ox O2 Delivery O2 Flow Rate FiO2 03/05/17 07:30 Room Air 03/05/17 07:02 37.0 80 18 130/82 (98) 96 Room Air 03/05/17 00:00 Room Air 03/04/17 22:43 37.1 90 18 143/81 (101) 98 Room Air 03/04/17 16:00 Room Air 03/04/17 14:58 36.9 66 18 131/77 (95) 95 Room Air Physical Exam General Appearance: WD/WN, + mild distress Eyes: PERRL, EOMI ENT: hearing grossly normal, pharynx normal Respiratory/Chest: chest non-tender, lungs clear, normal breath sounds Cardiovascular: regular rate, rhythm, no murmur Abdomen: normal bowel sounds, non tender, soft Extremities: + pedal edema, + swelling (body wall swelling also noted) Neurologic/Psychiatric: alert, oriented x 3 Laboratory Results Last 24 Hours Test 03/04/17 15:10 03/04/17 17:03 03/04/17 20:50 03/05/17 05:48 Stool Occult Blood NEGATIVE Bedside Glucose 112 mg/dl 160 mg/dl 180 mg/dl Test 03/05/17 07:00 03/05/17 12:02 03/05/17 13:18 Sodium Level 140 mmol/L Potassium Level 4.3 mmol/L Chloride Level 109 mmol/L Carbon Dioxide Level 22 mmol/L Anion Gap 9.0 mmol/L Blood Urea Nitrogen 29 mg/dl Creatinine 5.80 mg/dl Est Creatinine Clear Calc Drug Dose 25.8 ml/min Estimated GFR () 14.8 Estimated GFR (Non- 12.8 BUN/Creatinine Ratio 5.0 Random Glucose 122 mg/dl Calcium Level 8.8 mg/dl Bedside Glucose 196 mg/dl Urine Color YELLOW Urine Appearance CLEAR Urine pH 5.0 Urine Specific [place] 1.014 Urine Protein NEG Urine Glucose (UA) NEG Urine Ketones NEG Urine Occult Blood NEG Urine Nitrite NEG Urine Bilirubin NEG Urine Urobilinogen NEG Urine Leukocyte Esterase TRACE Urine WBC (Auto) 1-5 /hpf Urine RBC (Auto) 0-4 /hpf Urine Hyaline Casts (Auto) 0 /lpf Urine Epithelial Cells (Auto) 5-10 /lpf Urine Bacteria (Auto) NEG Assessment and Plan 22yo male sepsis from skin abscess sepsis s/p I&D by Dr. Virk. 02/28 Growing staph aureus sensitive to clindamycin -has been changed daptomycin due to renal distress we'll plan on transitioning to clindamycin orally once renal function improves wound VAC was placed 03/03 pain is improved Pelvic fluid collection remains unchanged at least no worse may benefit from interventional radiology drainage in the future echo negative for valvular vegetations. IVDA HIV negative T1DM -remains in control lantus 60 units HS, novolog but increase correction to 20 and carb ratio of 1:6. hypokalemia, hypomagnesemia -replete HepC status - noted. To be positive, question whether hepatic disease may impact renal function and encourages worsening we'll follow hepatic function with lab test on 03/06 acute kidney failure - renal u/s normal. Nephrology is following with Dr Donis, creatinine continues to worsen now 5.8 peripheral edema is present however is maintaining his Electrolytes, continue to be optimistic however if worsens consideration for hemodialysis is being considered by Dr. Donis anemia - 3 gm drop in hemoglobin since admission, continues to be stable this is likely impacted by his renal failure Depression remains with depressed affect has seen psychiatry is not interested in medications at this time DVT proph - heparin BID. Continued [facility] stay due to: multiple IV medications needed, other (acute kidney injury ) Discharge planning: uncertain
[2017-03-05 15:32] VITALS: BP 143/91; PULSE 75; TEMP 36.7; O2SAT 99
[2017-03-05 16:30] VITALS: O2SAT 99
[2017-03-05] MEDS: INSULIN GLARGINE SOLOSTAR 100 UNITS/ML 3 ML PEN SC SCH (21:46)
[2017-03-05] MEDS: ZOLPIDEM TARTRATE 5 MG TAB PO PRN (22:00)
[2017-03-05 23:02] VITALS: BP 125/80; PULSE 74; TEMP 37.3; O2SAT 97
[2017-03-06 07:06] VITALS: BP 135/87; PULSE 79; TEMP 37.2; O2SAT 99
[2017-03-06 07:26] LABS: ALKALINE PHOSPHATASE 125 U/L (45-117); ALT/SGPT 11 U/L (12-78); AST/SGOT 7 U/L (15-37); BLOOD UREA NITROGEN 28 mg/dl (7-18); BUN/CREATININE RATIO 4.8 (10-20); CALCIUM 9.1 mg/dl (8.5-10.1); CARBON DIOXIDE 25 mmol/L (21-32); CHLORIDE 108 mmol/L (98-107); GLUCOSE 113 mg/dl (70-99); POTASSIUM 4.6 mmol/L (3.5-5.1); SODIUM 141 mmol/L (136-145)
[2017-03-06] MEDS: TRAMADOL HCL 50 MG TAB PO PRN (07:58)
[2017-03-06] MEDS: HEPARIN SOD 5000 UNIT/0.5 ML CARP SQ SCH ×2 (09:00→21:00)
--- NOTE | 2017-03-06 09:18 | Nephrology Progress Note ---
Nephrology Progress Note Date of Service Mar 06, 2017. Chief Complaint TAYLOR Subjective No acute events overnight. No fevers or chills. Appetite good. Out of bed and ambulating in room. No urinary complaints. Review of Systems A complete review of systems was performed. Pertinent positives are noted above. All other systems are negative. Vital Signs Last 8 Hrs Date Time Temp Pulse Resp B/P (MAP) Pulse Ox O2 Delivery O2 Flow Rate FiO2 03/06/17 07:06 37.2 79 20 135/87 (103) 99 Room Air Last Recorded Weight Weight (Kilograms): 102.900 Physical Exam General Appearance: WD/WN, no apparent distress Head: normocephalic, atraumatic Eyes: normal inspection, sclerae normal ENT: normal ENT inspection, pharynx normal Neck: supple, no JVD Respiratory/Chest: lungs clear, no respiratory distress, no accessory muscle use Cardiovascular: regular rate, rhythm Abdomen/GI: non tender, soft Extremities/Musculoskelatal: normal inspection, no pedal edema, + pertinent finding (dependent edema) Neurologic/Psych: alert, oriented x 3 Family History Diabetes mellitus Social History Smoking Status: Never smoker Smokeless Tobacco Use: No Alcohol Use: occasionally Drug Use: cocaine, heroin, marijuana, other Marital Status: single Housing Status: lives with family Occupation: unemployed, student Laboratory Results Past 24 Hours 03/06/17 06:02 Test 03/05/17 12:02 03/05/17 13:18 03/05/17 17:01 03/05/17 20:50 Bedside Glucose 196 mg/dl (70-99) 203 mg/dl (70-99) 220 mg/dl (70-99) Urine Color YELLOW Urine Appearance CLEAR (CLEAR) Urine pH 5.0 (4.5-7.5) Urine Specific [place] 1.014 (1.000-1.030) Urine Protein NEG (NEG) Urine Glucose (UA) NEG (NEG) Urine Ketones NEG (NEG) Urine Occult Blood NEG (NEG) Urine Nitrite NEG (NEG) Urine Bilirubin NEG (NEG) Urine Urobilinogen NEG (NEG) Urine Leukocyte Esterase TRACE (NEG) Urine WBC (Auto) 1-5 /hpf (0-5) Urine RBC (Auto) 0-4 /hpf (0-4) Urine Hyaline Casts (Auto) 0 /lpf (0-5) Urine Epithelial Cells (Auto) 5-10 /lpf (0-5) Urine Bacteria (Auto) NEG (NEG) Test 03/06/17 05:16 03/06/17 05:35 03/06/17 06:02 03/06/17 07:54 Bedside Glucose 63 mg/dl (70-99) 76 mg/dl (70-99) 96 mg/dl (70-99) Anion Gap 8.0 mmol/L (3-11) Est Creatinine Clear Calc Drug Dose 25.8 ml/min Estimated GFR () 14.8 Estimated GFR (Non- 12.8 BUN/Creatinine Ratio 4.8 (10-20) Calcium Level 9.1 mg/dl (8.5-10.1) Total Bilirubin 0.2 mg/dl (0.2-1) Direct Bilirubin < 0.1 mg/dl (0-0.2) Aspartate Amino Transf (AST/SGOT) 7 U/L (15-37) Alanine Aminotransferase (ALT/SGPT) 11 U/L (12-78) Alkaline Phosphatase 125 U/L (45-117) Total Protein 6.6 gm/dl (6.4-8.2) Albumin 2.2 gm/dl (3.4-5.0) Allergies Coded Allergies: Azithromycin (Verified Allergy, Unknown, ., 02/27/17) Cephalosporins (Verified Allergy, Unknown, unknown, 02/27/17) mother Sulfa Antibiotics (Verified Allergy, Unknown, ., 02/27/17) Medications Current Inpatient Medications Medications (Trade) Dose Ordered Sig/Myron Route Start Time Stop Time Status Last Admin Dose Admin Zolpidem Tartrate (Ambien Tab) 5 mg HSZ PRN PO 02/27/17 12:00 03/29/17 11:59 03/05/17 22:00 5 MG Cholecalciferol (Vitamin D Tab) 1,000 inter.unit DAILY PO 02/28/17 09:00 03/30/17 08:59 03/05/17 09:47 1,000 INTER.UNIT Insulin Glargine (Lantus Solostar Pen) 60 units QPM SC 02/27/17 21:00 03/29/17 20:59 03/05/17 21:46 60 UNITS Ondansetron HCl (Zofran Inj) 4 mg Q6H PRN IV 02/27/17 12:00 03/29/17 11:59 03/03/17 17:45 4 MG Glucose (Glucose 40% Gel) UD PRN PO 02/27/17 12:00 03/29/17 11:59 Glucose (Glucose Chew Tab) 1 tabs UD PRN PO 02/27/17 12:00 03/29/17 11:59 Dextrose (Dextrose 50% 50ML Syringe) 50 ml UD PRN IV 02/27/17 12:00 03/29/17 11:59 Glucagon (Glucagon Inj) 1 mg UD PRN SQ 02/27/17 12:00 03/29/17 11:59 Famotidine (Pepcid Tab) 20 mg Q12 PO 02/28/17 21:00 03/30/17 20:59 03/05/17 22:10 20 MG Morphine Sulfate (MoRPHine SULFATE INJ) 4 mg Q3H PRN IV 03/01/17 11:45 03/15/17 11:44 03/03/17 06:35 4 MG Heparin Sodium (Porcine) (Heparin Sq 5000 Unit/0.5ml) 5,000 unit Q12 SQ 03/02/17 09:00 04/01/17 08:59 03/05/17 21:47 5,000 UNIT Sodium Chloride ([place] Nasal [place]) 1 sprays PRN PRN NA 03/02/17 14:15 04/01/17 14:14 Tramadol HCl (Ultram Tab) 100 mg Q6H PRN PO 03/02/17 22:00 03/29/17 11:59 03/06/17 07:58 100 MG Acetaminophen (Tylenol Tab) 1,000 mg BID PO 03/02/17 21:00 04/01/17 20:59 03/05/17 21:56 1,000 MG Acetaminophen (Tylenol Tab) 1,000 mg Q12 PRN PO 03/02/17 17:15 04/01/17 17:14 Daptomycin 400 mg/ Sodium Chloride 58 ml @ 120 mls/hr Q48H IV 03/04/17 16:00 03/14/17 15:59 03/04/17 16:04 120 MLS/HR Insulin Aspart (novoLOG ASPART) SLIDING SCALE If C... ACHS SC 03/05/17 12:00 04/04/17 11:59 03/05/17 21:45 7 UNITS Impression (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 Tijerina is a 22-year-old male with diabetes mellitus type 1, a history of IV drug abuse and chronic hepatitis-C. He was admitted with a left chest wall/upper abdominal wall abscess as well as a small intrapelvic abscess. Chest wall abscess I&D performed on 02/28/17. Cultures from drainage growing MRSA. Blood cultures negative. TTE did not show vegetation or evidence of valvular heart disease. CT of the pelvis 03/04/17 shows a stable 2.4 cm right obturator internus intramuscular collection. Vancomycin switched to daptomycin due to renal dysfunction. Serum creatinine was 0.6 mg/dL on admission. Metabolic profile is otherwise normal. No indication for dialysis at this time. Preemptive education has been provided daily. Blood pressure and volume status are appropriate. Renal US normal. Urine analysis is bland with acellular microscopy. Clinical presentation is most consistent with ATN. There was not significant evidence of acute GN on urine studies. Clinical presentation would be atypical for post infectious GN, IE or cryoglobulinemia. This is supported by normal serum C3/C4. AIN would appear less likely given clinical presentation. CK was not elevated to suggest pigment nephropathy. ATN can be attributed to infection, CT with contrast as well as medications including Toradol. Recommendations TAYLOR: -- Creatinine stabilized -- Monitor serial renal profile daily -- Avoid NSAIDs -- Document I/O's -- Potassium restrict diet Diabetes mellitus: -- Glucose control appropriate Soft tissue abscess: -- Monitor CPK weekly on daptomycin Hepatitis C: -- LFT's stable
[2017-03-06] MEDS: FAMOTIDINE 20 MG TAB PO SCH ×2 (09:19→21:10)
[2017-03-06] MEDS: ACETAMINOPHEN 500 MG TAB PO SCH ×2 (09:19→21:10)
[2017-03-06] MEDS: CHOLECALCIFEROL 1000 INTER.UNIT TAB PO SCH (09:20)
[2017-03-06] MEDS: INSULIN ASPART 100 UNITS/ML 3 ML PEN SC SCH ×4 (09:24→21:08)
[2017-03-06] MEDS: MoRPHine SULFATE 4 MG/ML 1 ML CARP\\VIAL IV PRN ×3 (13:16→21:09)
[2017-03-06 15:37] VITALS: BP 129/85; PULSE 70; TEMP 37; O2SAT 96
--- NOTE | 2017-03-06 15:38 | Progress Note ---
Subjective Date of Service: Mar 06, 2017. Subjective pt is about the same today, not complaining of much, still some peripheral edema and bodywall edema Problem List Medical Problems: (1) Abscess of left forearm Status: Acute (2) Chest wall hematoma Status: Acute (3) Chronic Viral Hepatitis C Status: Chronic (4) Endocarditis Status: Acute (5) Hyperglycemia due to type 1 diabetes mellitus Status: Acute (6) IV drug abuse Status: Chronic (7) Left arm cellulitis Status: Acute (8) Rib pain on left side Status: Acute (9) Type 1 diabetes Status: Chronic Review of Systems Constitutional: No fever, No chills Respiratory: No cough, No shortness of breath, No dyspnea on exertion Cardiac: + edema, No chest pain, No orthopnea, No PND Objective Vital Signs Date Time Temp Pulse Resp B/P (MAP) Pulse Ox O2 Delivery O2 Flow Rate FiO2 03/06/17 07:45 Room Air 03/06/17 07:06 37.2 79 20 135/87 (103) 99 Room Air 03/06/17 00:15 Room Air 03/05/17 23:02 37.3 74 14 125/80 (95) 97 Room Air 03/05/17 16:30 99 Room Air Physical Exam General Appearance: WD/WN, no apparent distress Eyes: PERRL, EOMI ENT: hearing grossly normal, pharynx normal Respiratory/Chest: chest non-tender, lungs clear, normal breath sounds Cardiovascular: regular rate, rhythm, no murmur Abdomen: normal bowel sounds, non tender, soft Extremities: + pedal edema, + swelling Laboratory Results Last 24 Hours Test 03/05/17 17:01 03/05/17 20:50 03/06/17 05:16 03/06/17 05:35 Bedside Glucose 203 mg/dl 220 mg/dl 63 mg/dl 76 mg/dl Test 03/06/17 06:02 03/06/17 07:54 03/06/17 12:15 Sodium Level 141 mmol/L Potassium Level 4.6 mmol/L Chloride Level 108 mmol/L Carbon Dioxide Level 25 mmol/L Anion Gap 8.0 mmol/L Blood Urea Nitrogen 28 mg/dl Creatinine 5.80 mg/dl Est Creatinine Clear Calc Drug Dose 25.8 ml/min Estimated GFR () 14.8 Estimated GFR (Non- 12.8 BUN/Creatinine Ratio 4.8 Random Glucose 113 mg/dl Calcium Level 9.1 mg/dl Total Bilirubin 0.2 mg/dl Direct Bilirubin < 0.1 mg/dl Aspartate Amino Transf (AST/SGOT) 7 U/L Alanine Aminotransferase (ALT/SGPT) 11 U/L Alkaline Phosphatase 125 U/L Total Protein 6.6 gm/dl Albumin 2.2 gm/dl Bedside Glucose 96 mg/dl 99 mg/dl Assessment and Plan 22yo male sepsis from skin abscess sepsis mrsa, s/p I&D by Dr. Virk. 02/28 staph aureus changed daptomycin from, vancomycin due to renal distress we'll plan on transitioning to clindamycin orally once renal function improves wound VAC was placed 03/03 pain is improved Pelvic fluid collection remains unchanged at least no worse on CT 03/04, may benefit from interventional radiology drainage in the future echo negative for valvular vegetations. IVDA HIV negative T1DM -remains in control lantus 60 units HS, novolog but increase correction to 20 and carb ratio of 1:6. is having occasional lows hypokalemia, hypomagnesemia -replete HepC status - noted. To be positive, question whether hepatic disease may impact renal function and encourages worsening we'll follow hepatic function with lab test on 03/06 acute kidney failure - renal u/s normal. Nephrology is following with Dr Donis, creatinine continues to worsen now 2nd day at 5.8, continue to be optimistic as first time it has not increased, still maintaining K and bicarb anemia - 3 gm drop in hemoglobin since admission, continues to be stable this is likely impacted by his renal failure Depression remains with depressed affect has seen psychiatry is not interested in medications at this time DVT proph - heparin BID. mother updated at bedside Continued [facility] stay due to: multiple IV medications needed, other (acute kidney injury ) Discharge planning: uncertain
[2017-03-06] MEDS: DAPTOmycin IV 400 MG in SODIUM CHLORIDE 0.9% 50ML 50 ML IV SCH (16:29)
[2017-03-06] MEDS ORDERED: PHARMACY GLYCEMIC MGMT CONSULT PRN (17:47)
[2017-03-06] MEDS: INSULIN GLARGINE SOLOSTAR 100 UNITS/ML 3 ML PEN SC SCH (21:09)
[2017-03-06 23:30] VITALS: BP 130/78; PULSE 72; TEMP 36.9; O2SAT 96
[2017-03-07] MEDS: ZOLPIDEM TARTRATE 5 MG TAB PO PRN ×2 (00:02→23:32)
[2017-03-07 06:25] LABS: HEMATOCRIT 32.7 % (42-52); MEAN CELL VOLUME 90.3 fL (80-100); MEAN CORPUSCULAR HEMOGLOBIN 28.5 pg (25-34); MEAN CORPUSCULAR HGB CONC 31.5 g/dl (32-36); MEAN PLATELET VOLUME 8.4 fL (7.4-10.4); PLATELET COUNT 543 K/uL (130-400); RED BLOOD COUNT 3.62 M/uL (4.7-6.1); WHITE BLOOD COUNT 9.53 K/uL (4.8-10.8)
[2017-03-07 07:08] VITALS: BP 130/81; PULSE 80; TEMP 36.3; O2SAT 97
[2017-03-07 07:16] LABS: BUN/CREATININE RATIO 6.3 (10-20); CALCIUM 9.1 mg/dl (8.5-10.1); CREATININE 5.7 mg/dl (0.60-1.40)
[2017-03-07] MEDS: CHOLECALCIFEROL 1000 INTER.UNIT TAB PO SCH (08:35)
[2017-03-07] MEDS: ACETAMINOPHEN 500 MG TAB PO SCH ×2 (08:35→21:40)
[2017-03-07] MEDS: FAMOTIDINE 20 MG TAB PO SCH ×2 (08:35→21:40)
[2017-03-07] MEDS: MoRPHine SULFATE 4 MG/ML 1 ML CARP\\VIAL IV PRN ×4 (08:36→21:37)
[2017-03-07] MEDS: HEPARIN SOD 5000 UNIT/0.5 ML CARP SQ SCH ×2 (08:37→21:00)
[2017-03-07] MEDS: INSULIN ASPART 100 UNITS/ML 3 ML PEN SC SCH ×4 (08:38→21:39)
--- NOTE | 2017-03-07 10:01 | Pharmacy Progress Note ---
Glycemic Control Intl Consult Date of Service Mar 07, 2017. Scope Glycemic Pharmacist consulted by Dr Skaggs on 03/07/17 for glycemic control and to write orders per [facility] inpatient glycemic control protocol Objective Weight (Kilograms): 102.900 Accuchecks BSG (last 24hrs): Test 03/06/17 12:15 03/06/17 17:16 03/06/17 17:36 03/06/17 20:55 Bedside Glucose 99 mg/dl (70-99) 64 mg/dl (70-99) 80 mg/dl (70-99) 173 mg/dl (70-99) Test 03/07/17 05:42 03/07/17 05:43 03/07/17 06:07 Bedside Glucose 69 mg/dl (70-99) 76 mg/dl (70-99) Random Glucose 67 mg/dl (70-99) Laboratory Data (last 24hrs) Test 03/07/17 05:43 Anion Gap 8.0 mmol/L BUN/Creatinine Ratio 6.3 Blood Urea Nitrogen 36 mg/dl Creatinine 5.70 mg/dl Potassium Level 5.0 mmol/L Sodium Level 139 mmol/L White Blood Count 9.53 K/uL HbA1c Test 02/27/17 14:54 Hemoglobin A1c 10.0 % (4.5-5.6) H Recent Pertinent Medications Outpatient Anti-diabetic Regimen: * Lantus 60 units qPM + Humalog sliding scale * A1c = 10 % 02/27/17 The patient is currently receiving: * Basal insulin: Lantus 60 units every 24 hours * Correctional Insulin: Novolog Correction per scale ACHS Goal Range: Low 100 mg/dL - High 150 mg/dL Correction Factor: 20 mg/dL/unit * Prandial insulin: Per carb ratio of 1 unit per 6 grams CHO consumed Risk Factors for Insulin Resistance: * Infection: abdominal wall cellulitis on daptomycin * Recent Surgery: POD 7 for I&D of abdominal wall * Diet: type 1 diabetic diet Assessment & Plan ASSESSMENT: * ADA & AACE recommend a goal blood sugar range 140-180 mg/dl for the majority of critically ill & non-critically ill patients. However, more stringent targets may be selected in individual cases. Will utilize more stringent goal of 110-140mg/dl based on patient age & comorbidities. Additionally, tighter glycemic control is warranted to facilitate wound/infection healing. * Mr Tijerina is a 22 y/o M with a PMH of IV drug use and hepatitis C admitted last week (02/27/2017) for abdominal wall abscess. He is a type 1 diabetic with a basal heavy home regimen. This regimen was continued as an inpatient. During the first part of the patient's admission, his blood sugars were higher despite receiving around 80-90 units of insulin per day (primary basal at 60 units daily ). Patient's kidney function has also continued to worsen and is now currently at 5.7 mg/dL compared to 0.97 mg/dL on admission. This can make the patient highly insulin sensitive. Patient's diet does not appear to have changed. * For the past two days, the patient has had low blood sugars (~60 mg/dL) in the morning and sustained throughout the day indicating the patient is too basal heavy. Will reduce Lantus by 15% to Lantus 50 units daily - this was done conservatively based upon patient's type 1 status. Yesterday, it appeared that the correctional insulin was too aggressive based upon blood sugars trending downwards. Loosen carbohydrate ratio and correction factor slightly. PLAN FOR INPATIENT GLYCEMIC CONTROL: * Basal insulin with LANTUS 50 units SQ HS * Correctional Insulin with NOVOLOG per scale ACHS * Goal Range: Low 110 mg/dL - High 140 mg/dL * Correction Factor: 25 mg/dL/unit * Nutritional / Prandial insulin per carb ratio of 1 unit per 8 grams CHO consumed * Please note that the plan above was derived based on current level of insulin resistance and hospital stress. These recommendations are appropriate for inpatient admission only. Plan of care upon discharge will need to be reassessed to avoid potential outpatient hypo/hyperglycemia. Thank you.
--- NOTE | 2017-03-07 10:17 | Nephrology Progress Note ---
Nephrology Progress Note Date of Service Mar 07, 2017. Chief Complaint Follow up evaluation of TAYLOR Subjective Mr. Tijerina was seen & examined in his hospital room this morning. He currently denies fever, angina, dyspnea or flank discomfort. He reports that he is voiding without difficulty. Wound vac remains in place over left chest/ abdominal incision. Review of Systems Constitutional: No fever Cardiovascular: No chest pain Respiratory: No dyspnea at rest Abdomen: No pain, No nausea, No vomiting Genitourinary - Male: No dysuria Extremities: No leg edema Integumentary: No rash A complete review of systems was performed. Pertinent positives are noted above. All other systems are negative. Vital Signs Last 8 Hrs Date Time Temp Pulse Resp B/P (MAP) Pulse Ox O2 Delivery O2 Flow Rate FiO2 03/07/17 07:50 Room Air 03/07/17 07:08 36.3 80 16 130/81 (97) 97 Room Air Last Recorded Weight Weight (Kilograms): 102.900 Physical Exam General Appearance: no apparent distress Head: normocephalic, atraumatic Eyes: PERRL, EOMI Neck: no adenopathy Respiratory/Chest: lungs clear, no respiratory distress Cardiovascular: regular rate, rhythm, no murmur Abdomen/GI: normal bowel sounds, non tender, soft Extremities/Musculoskelatal: no calf tenderness, no pedal edema Neurologic/Psych: alert, oriented x 3 Family History Diabetes mellitus Social History Smoking Status: Never smoker Smokeless Tobacco Use: No Alcohol Use: occasionally Drug Use: cocaine, heroin, marijuana, other Marital Status: single Housing Status: lives with family Occupation: unemployed, student Laboratory Results Past 24 Hours 03/07/17 05:43 03/07/17 05:43 Test 03/06/17 12:15 03/06/17 17:16 03/06/17 17:36 03/06/17 20:55 Bedside Glucose 99 mg/dl (70-99) 64 mg/dl (70-99) 80 mg/dl (70-99) 173 mg/dl (70-99) Test 03/07/17 05:42 03/07/17 05:43 03/07/17 06:07 Bedside Glucose 69 mg/dl (70-99) 76 mg/dl (70-99) Red Blood Count 3.62 M/uL (4.7-6.1) Mean Corpuscular Volume 90.3 fL (80-100) Mean Corpuscular Hemoglobin 28.5 pg (25-34) Mean Corpuscular Hemoglobin Concent 31.5 g/dl (32-36) RDW Standard Deviation 43.4 fL (36.4-46.3) RDW Coefficient of Variation 13.1 % (11.5-14.5) Mean Platelet Volume 8.4 fL (7.4-10.4) Anion Gap 8.0 mmol/L (3-11) Est Creatinine Clear Calc Drug Dose 26.2 ml/min Estimated GFR () 15.1 Estimated GFR (Non- 13.1 BUN/Creatinine Ratio 6.3 (10-20) Calcium Level 9.1 mg/dl (8.5-10.1) Allergies Coded Allergies: Azithromycin (Verified Allergy, Unknown, ., 02/27/17) Cephalosporins (Verified Allergy, Unknown, unknown, 02/27/17) mother Sulfa Antibiotics (Verified Allergy, Unknown, ., 02/27/17) Medications Current Inpatient Medications Medications (Trade) Dose Ordered Sig/Myron Route Start Time Stop Time Status Last Admin Dose Admin Zolpidem Tartrate (Ambien Tab) 5 mg HSZ PRN PO 02/27/17 12:00 03/29/17 11:59 03/07/17 00:02 5 MG Cholecalciferol (Vitamin D Tab) 1,000 inter.unit DAILY PO 02/28/17 09:00 03/30/17 08:59 03/07/17 08:35 1,000 INTER.UNIT Ondansetron HCl (Zofran Inj) 4 mg Q6H PRN IV 02/27/17 12:00 03/29/17 11:59 03/03/17 17:45 4 MG Glucose (Glucose 40% Gel) UD PRN PO 02/27/17 12:00 03/29/17 11:59 Glucose (Glucose Chew Tab) 1 tabs UD PRN PO 02/27/17 12:00 03/29/17 11:59 Dextrose (Dextrose 50% 50ML Syringe) 50 ml UD PRN IV 02/27/17 12:00 03/29/17 11:59 Glucagon (Glucagon Inj) 1 mg UD PRN SQ 02/27/17 12:00 03/29/17 11:59 Famotidine (Pepcid Tab) 20 mg Q12 PO 02/28/17 21:00 03/30/17 20:59 03/07/17 08:35 20 MG Morphine Sulfate (MoRPHine SULFATE INJ) 4 mg Q3H PRN IV 03/01/17 11:45 03/15/17 11:44 03/07/17 08:36 4 MG Heparin Sodium (Porcine) (Heparin Sq 5000 Unit/0.5ml) 5,000 unit Q12 SQ 03/02/17 09:00 04/01/17 08:59 03/07/17 08:37 5,000 UNIT Sodium Chloride ([place] Nasal [place]) 1 sprays PRN PRN NA 03/02/17 14:15 04/01/17 14:14 Tramadol HCl (Ultram Tab) 100 mg Q6H PRN PO 03/02/17 22:00 03/29/17 11:59 03/06/17 07:58 100 MG Acetaminophen (Tylenol Tab) 1,000 mg BID PO 03/02/17 21:00 04/01/17 20:59 03/07/17 08:35 1,000 MG Acetaminophen (Tylenol Tab) 1,000 mg Q12 PRN PO 03/02/17 17:15 04/01/17 17:14 Daptomycin 400 mg/ Sodium Chloride 58 ml @ 120 mls/hr Q48H IV 03/04/17 16:00 03/14/17 15:59 03/06/17 16:29 120 MLS/HR Insulin Aspart (novoLOG ASPART) SLIDING SCALE If C... 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 Tijerina has IDDM, h/o IVDA and chronic hepatitis-C. He was admitted with a left chest wall/upper abdominal wall abscess as well as a small intrapelvic abscess. Chest wall abscess I&D performed on 02/28/17. Cultures from drainage growing MRSA. Blood cultures negative. TTE did not show vegetation or evidence of valvular heart disease. CT of the pelvis 03/04/17 shows a stable 2.4 cm right obturator internus intramuscular collection. Vancomycin switched to daptomycin due to renal dysfunction. Renal US normal. Urine analysis is bland with acellular microscopy. Clinical presentation is most consistent with ATN. There was not significant evidence of acute GN on urine studies. Clinical presentation would be atypical for post infectious GN, IE or cryoglobulinemia. This is supported by normal serum C3/C4. AIN would appear less likely given clinical presentation. CK was not elevated to suggest pigment nephropathy. ATN can be attributed to infection, CT with contrast as well as medications including Toradol. Baseline creatinine has been 0.6 Recommendations TAYLOR: -- Volume status and electrolyte balance are acceptable at this time. Patient is nonoliguric. 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 Consider referral to geological aide following hospitalization for treatment of Hepatitis C
[2017-03-07 13:07] VITALS: BMI 29.1
--- NOTE | 2017-03-07 14:27 | Hospitalist Progress Note ---
Hospitalist Progress Note Date of Service Mar 07, 2017. (Ruth Reynolds PA-C) Subjective Pt evaluation today including: conversation w/ patient, physical exam, chart review, lab review, review of studies, review of inpatient medication list Patient seen and evaluated. No acute events overnight. Reporting increased pain due to wound vac change today. Cr elevated but stabilized. Electrolytes acceptable. Continues to produce urine. Verbalizes no other complaints at this time Constitutional: No fever, No chills Respiratory: No shortness of breath Cardiovascular: No chest pain, No palpitations Abdomen: + pain (at site of wound vac), No nausea, No vomiting, No diarrhea , No constipation Musculoskeletal: No calf pain Male : No dysuria Heme: No abnormal bleeding/bruising Skin: No rash (Ruth Reynolds PA-C) Medications Current Inpatient Medications Medications (Trade) Dose Ordered Sig/Myron Route Start Time Stop Time Status Last Admin Dose Admin Zolpidem Tartrate (Ambien Tab) 5 mg HSZ PRN PO 02/27/17 12:00 03/29/17 11:59 03/07/17 00:02 5 MG Cholecalciferol (Vitamin D Tab) 1,000 inter.unit DAILY PO 02/28/17 09:00 03/30/17 08:59 03/07/17 08:35 1,000 INTER.UNIT Ondansetron HCl (Zofran Inj) 4 mg Q6H PRN IV 02/27/17 12:00 03/29/17 11:59 03/03/17 17:45 4 MG Glucose (Glucose 40% Gel) UD PRN PO 02/27/17 12:00 03/29/17 11:59 Glucose (Glucose Chew Tab) 1 tabs UD PRN PO 02/27/17 12:00 03/29/17 11:59 Dextrose (Dextrose 50% 50ML Syringe) 50 ml UD PRN IV 02/27/17 12:00 03/29/17 11:59 Glucagon (Glucagon Inj) 1 mg UD PRN SQ 02/27/17 12:00 03/29/17 11:59 Famotidine (Pepcid Tab) 20 mg Q12 PO 02/28/17 21:00 03/30/17 20:59 03/07/17 08:35 20 MG Morphine Sulfate (MoRPHine SULFATE INJ) 4 mg Q3H PRN IV 03/01/17 11:45 03/15/17 11:44 03/07/17 13:41 4 MG Heparin Sodium (Porcine) (Heparin Sq 5000 Unit/0.5ml) 5,000 unit Q12 SQ 03/02/17 09:00 04/01/17 08:59 03/07/17 08:37 5,000 UNIT Sodium Chloride ([place] Nasal [place]) 1 sprays PRN PRN NA 03/02/17 14:15 04/01/17 14:14 Tramadol HCl (Ultram Tab) 100 mg Q6H PRN PO 03/02/17 22:00 03/29/17 11:59 03/06/17 07:58 100 MG Acetaminophen (Tylenol Tab) 1,000 mg BID PO 03/02/17 21:00 04/01/17 20:59 03/07/17 08:35 1,000 MG Acetaminophen (Tylenol Tab) 1,000 mg Q12 PRN PO 03/02/17 17:15 04/01/17 17:14 Daptomycin 400 mg/ Sodium Chloride 58 ml @ 120 mls/hr Q48H IV 03/04/17 16:00 03/14/17 15:59 03/06/17 16:29 120 MLS/HR Insulin Aspart (novoLOG ASPART) SLIDING SCALE If C... ACHS [place] 03/05/17 12:00 04/04/17 11:59 03/07/17 13:40 8 UNITS Miscellaneous Information (Consult Glycemic Management Pharmacy) 1 ea UD PRN N/A 03/06/17 17:47 04/05/17 17:46 Insulin Glargine (Lantus Solostar Pen) 50 units QPM SC 03/07/17 21:00 04/06/17 20:59 (Ruth Reynolds, LORENA) Objective Vital Signs Date Time Temp Pulse Resp B/P (MAP) Pulse Ox O2 Delivery O2 Flow Rate FiO2 03/07/17 07:50 Room Air 03/07/17 07:08 36.3 80 16 130/81 (97) 97 Room Air 03/07/17 00:00 Room Air 03/06/17 23:30 36.9 72 16 130/78 (95) 96 Room Air 03/06/17 15:37 37.0 70 18 129/85 (100) 96 Room Air 03/06/17 15:30 Room Air (Ruth Reynolds PA-C) Physical Exam General Appearance: WD/WN, no apparent distress Eyes: sclerae normal ENT: hearing grossly normal Neck: supple, no JVD, trachea midline Respiratory/Chest: lungs clear, normal breath sounds, no respiratory distress, no accessory muscle use Cardiovascular: regular rate, rhythm, no gallop, no murmur Abdomen: normal bowel sounds, soft, + pertinent finding (wound vac placed to LUQ) Extremities: no pedal edema, no calf tenderness Neurologic/Psychiatric: alert, oriented x 3 Skin: normal color, warm/dry (Ruth Reynolds PA-C) Laboratory Results Last 24 Hours Test 03/06/17 17:03 03/06/17 17:16 03/06/17 17:36 03/06/17 20:55 Bedside Glucose 66 mg/dl 64 mg/dl 80 mg/dl 173 mg/dl Test 03/07/17 05:20 03/07/17 05:42 03/07/17 05:43 03/07/17 06:07 Bedside Glucose 45 mg/dl 69 mg/dl 76 mg/dl White Blood Count 9.53 K/uL Red Blood Count 3.62 M/uL Hemoglobin 10.3 g/dL Hematocrit 32.7 % Mean Corpuscular Volume 90.3 fL Mean Corpuscular Hemoglobin 28.5 pg Mean Corpuscular Hemoglobin Concent 31.5 g/dl RDW Standard Deviation 43.4 fL RDW Coefficient of Variation 13.1 % Platelet Count 543 K/uL Mean Platelet Volume 8.4 fL Sodium Level 139 mmol/L Potassium Level 5.0 mmol/L Chloride Level 107 mmol/L Carbon Dioxide Level 24 mmol/L Anion Gap 8.0 mmol/L Blood Urea Nitrogen 36 mg/dl Creatinine 5.70 mg/dl Est Creatinine Clear Calc Drug Dose 26.2 ml/min Estimated GFR () 15.1 Estimated GFR (Non- 13.1 BUN/Creatinine Ratio 6.3 Random Glucose 67 mg/dl Calcium Level 9.1 mg/dl Test 03/07/17 11:49 Bedside Glucose 103 mg/dl (Ruth Reynolds PA-C) Assessment and Plan Mr. Tijerina is a 22 y/o male with PMHx of T1DM, Hepatitis C, and IVDA who presents with MRSA skin abscess Sepsis from MRSA Abscess S/P I&D by Dr. Virk on 02/28: - Wound vac placed 03/03 - wound care following - Daptomycin 400 mg IV Q48H with plans to convert to oral Clindamycin on D/C - not a PICC line candidate - Evidence of pelvic fluid collection - stable - may benefit from IR drainage - TTE without vegetation and HIV negative Acute Kidney Failure: - Very minimal improvement in Cr at 5.7 - continue to monitor - Nephrology following - appreciate recommendations - non-oliguric; no need for dialysis T1DM: - Lantus and SSI with glycemic control Hypokalemia and Hypomagnesemia: RESOLVED - Monitor and replete as necessary Heptatic C: - Followed with assistant professor of biochemistry in the past but not recently - possibly contributing to renal function DVT Prophylaxis: Heparin BID Code Status: FULL RESUSCITATION Disposition: - Monitor kidney function and recommendations for Abx duration Continued [facility] stay due to: multiple IV medications needed Discharge planning: home with home health (Ruth Reynolds, PA-C) Reviewed: Pt Seen/Exam by Me (Sarah Lara DO) History See my note for details and exam (Sarah Lara DO) Assessment/Plan Agree with plan as outlined above MRSA abscess related to IVDA Abx as above ARF: likely related to abx Renal US neg Ongoing UOP (Sarah Lara DO)
[2017-03-07 15:23] VITALS: BP 130/81; PULSE 76; TEMP 36.8; O2SAT 96
--- NOTE | 2017-03-07 15:34 | Progress Note ---
Subjective Date of Service: Mar 07, 2017. Subjective Pt evaluation today including: conversation w/ patient Pt has pain related to his abscess s/p manipulation of wound vac, but otherwise no concerns. Tolerating PO without issue. Agree with HPI/ROS as noted. Problem List Medical Problems: (1) Abscess of left forearm Status: Acute (2) Chest wall hematoma Status: Acute (3) Chronic Viral Hepatitis C Status: Chronic (4) Endocarditis Status: Acute (5) Hyperglycemia due to type 1 diabetes mellitus Status: Acute (6) IV drug abuse Status: Chronic (7) Left arm cellulitis Status: Acute (8) Rib pain on left side Status: Acute (9) Type 1 diabetes Status: Chronic Objective Vital Signs Date Time Temp Pulse Resp B/P (MAP) Pulse Ox O2 Delivery O2 Flow Rate FiO2 03/07/17 15:23 36.8 76 18 130/81 (97) 96 Room Air 03/07/17 07:50 Room Air 03/07/17 07:08 36.3 80 16 130/81 (97) 97 Room Air 03/07/17 00:00 Room Air 03/06/17 23:30 36.9 72 16 130/78 (95) 96 Room Air 03/06/17 15:37 37.0 70 18 129/85 (100) 96 Room Air Physical Exam General Appearance: WD/WN, no apparent distress Respiratory/Chest: normal breath sounds, no respiratory distress Cardiovascular: regular rate, rhythm, no edema Abdomen: non tender, soft Extremities: non-tender, no pedal edema Neurologic/Psychiatric: alert, oriented x 3 Skin: normal color, warm/dry Laboratory Results Last 24 Hours Test 03/06/17 17:03 03/06/17 17:16 03/06/17 17:36 03/06/17 20:55 Bedside Glucose 66 mg/dl 64 mg/dl 80 mg/dl 173 mg/dl Test 03/07/17 05:20 03/07/17 05:42 03/07/17 05:43 03/07/17 06:07 Bedside Glucose 45 mg/dl 69 mg/dl 76 mg/dl White Blood Count 9.53 K/uL Red Blood Count 3.62 M/uL Hemoglobin 10.3 g/dL Hematocrit 32.7 % Mean Corpuscular Volume 90.3 fL Mean Corpuscular Hemoglobin 28.5 pg Mean Corpuscular Hemoglobin Concent 31.5 g/dl RDW Standard Deviation 43.4 fL RDW Coefficient of Variation 13.1 % Platelet Count 543 K/uL Mean Platelet Volume 8.4 fL Sodium Level 139 mmol/L Potassium Level 5.0 mmol/L Chloride Level 107 mmol/L Carbon Dioxide Level 24 mmol/L Anion Gap 8.0 mmol/L Blood Urea Nitrogen 36 mg/dl Creatinine 5.70 mg/dl Est Creatinine Clear Calc Drug Dose 26.2 ml/min Estimated GFR () 15.1 Estimated GFR (Non- 13.1 BUN/Creatinine Ratio 6.3 Random Glucose 67 mg/dl Calcium Level 9.1 mg/dl Test 03/07/17 11:49 Bedside Glucose 103 mg/dl Assessment and Plan Agree with plan as outlined above MRSA abscess related to IVDA Abx as above ARF: likely related to abx Renal US neg Ongoing UOP Continued [facility] stay due to: multiple IV medications needed Discharge planning: home with home health
[2017-03-07] MEDS: TRAMADOL HCL 50 MG TAB PO PRN (18:37)
[2017-03-07] MEDS ORDERED: INSULIN GLARGINE SOLOSTAR 100 UNITS/ML 3 ML PEN SC SCH ×2 (21:00)
[2017-03-07] MEDS ORDERED: INSULIN GLARGINE SOLOSTAR 100 UNITS/ML 3 ML PEN SC ONE (21:00)
--- NOTE | 2017-03-07 21:43 | Infectious Disease Progress Nt ---
Progress Note Date of Service Mar 07, 2017. Subjective Pt evaluation today including: conversation w/ patient, physical exam, chart review, lab review, review of studies, conversation w/ risk control consultant, review of inpatient medication list Complaining of pain at surgical site, otherwise no new symptoms. Remains afebrile. All Other Systems: Reviewed and Negative Medications Current Inpatient Medications Medications (Trade) Dose Ordered Sig/Myron Route Start Time Stop Time Status Last Admin Dose Admin Zolpidem Tartrate (Ambien Tab) 5 mg HSZ PRN PO 02/27/17 12:00 03/29/17 11:59 03/07/17 00:02 5 MG Cholecalciferol (Vitamin D Tab) 1,000 inter.unit DAILY PO 02/28/17 09:00 03/30/17 08:59 03/07/17 08:35 1,000 INTER.UNIT Ondansetron HCl (Zofran Inj) 4 mg Q6H PRN IV 02/27/17 12:00 03/29/17 11:59 03/03/17 17:45 4 MG Glucose (Glucose 40% Gel) UD PRN PO 02/27/17 12:00 03/29/17 11:59 Glucose (Glucose Chew Tab) 1 tabs UD PRN PO 02/27/17 12:00 03/29/17 11:59 Dextrose (Dextrose 50% 50ML Syringe) 50 ml UD PRN IV 02/27/17 12:00 03/29/17 11:59 Glucagon (Glucagon Inj) 1 mg UD PRN SQ 02/27/17 12:00 03/29/17 11:59 Famotidine (Pepcid Tab) 20 mg Q12 PO 02/28/17 21:00 03/30/17 20:59 03/07/17 21:40 20 MG Morphine Sulfate (MoRPHine SULFATE INJ) 4 mg Q3H PRN IV 03/01/17 11:45 03/15/17 11:44 03/07/17 21:37 4 MG Heparin Sodium (Porcine) (Heparin Sq 5000 Unit/0.5ml) 5,000 unit Q12 SQ 03/02/17 09:00 04/01/17 08:59 03/07/17 08:37 5,000 UNIT Sodium Chloride ([place] Nasal [place]) 1 sprays PRN PRN NA 03/02/17 14:15 04/01/17 14:14 Tramadol HCl (Ultram Tab) 100 mg Q6H PRN PO 03/02/17 22:00 03/29/17 11:59 03/07/17 18:37 100 MG Acetaminophen (Tylenol Tab) 1,000 mg BID PO 03/02/17 21:00 04/01/17 20:59 03/07/17 21:40 1,000 MG Acetaminophen (Tylenol Tab) 1,000 mg Q12 PRN PO 03/02/17 17:15 04/01/17 17:14 Daptomycin 400 mg/ Sodium Chloride 58 ml @ 120 mls/hr Q48H IV 03/04/17 16:00 03/14/17 15:59 03/06/17 16:29 120 MLS/HR Insulin Aspart (novoLOG ASPART) SLIDING SCALE If C... ACHS SC 03/05/17 12:00 04/04/17 11:59 03/07/17 21:39 3 UNITS Miscellaneous Information (Consult Glycemic Management Pharmacy) 1 ea UD PRN N/A 03/06/17 17:47 04/05/17 17:46 Insulin Aspart (novoLOG ASPART) SLIDING SCALE If C... 0200 ONCE SC 03/08/17 02:00 03/08/17 02:01 Objective Vital Signs Date Time Temp Pulse Resp B/P (MAP) Pulse Ox O2 Delivery O2 Flow Rate FiO2 03/07/17 15:35 Room Air 03/07/17 15:23 36.8 76 18 130/81 (97) 96 Room Air 03/07/17 07:50 Room Air 03/07/17 07:08 36.3 80 16 130/81 (97) 97 Room Air 03/07/17 00:00 Room Air 03/06/17 23:30 36.9 72 16 130/78 (95) 96 Room Air Physical Exam General Appearance: WD/WN, no apparent distress Eyes: normal inspection, sclerae normal ENT: normal ENT inspection, pharynx normal Neck: supple, no adenopathy, trachea midline Respiratory/Chest: chest non-tender, lungs clear, normal breath sounds, no respiratory distress Cardiovascular: regular rate, rhythm, no gallop, no murmur Abdomen: normal bowel sounds, non tender, soft, no organomegaly Extremities: non-tender, no calf tenderness Neurologic/Psychiatric: alert, oriented x 3 Skin: normal color, no rash Lymphatic: no adenopathy Laboratory Results Last 24 Hours Test 03/07/17 05:20 03/07/17 05:42 03/07/17 05:43 03/07/17 06:07 Bedside Glucose 45 mg/dl 69 mg/dl 76 mg/dl White Blood Count 9.53 K/uL Red Blood Count 3.62 M/uL Hemoglobin 10.3 g/dL Hematocrit 32.7 % Mean Corpuscular Volume 90.3 fL Mean Corpuscular Hemoglobin 28.5 pg Mean Corpuscular Hemoglobin Concent 31.5 g/dl RDW Standard Deviation 43.4 fL RDW Coefficient of Variation 13.1 % Platelet Count 543 K/uL Mean Platelet Volume 8.4 fL Sodium Level 139 mmol/L Potassium Level 5.0 mmol/L Chloride Level 107 mmol/L Carbon Dioxide Level 24 mmol/L Anion Gap 8.0 mmol/L Blood Urea Nitrogen 36 mg/dl Creatinine 5.70 mg/dl Est Creatinine Clear Calc Drug Dose 26.2 ml/min Estimated GFR () 15.1 Estimated GFR (Non- 13.1 BUN/Creatinine Ratio 6.3 Random Glucose 67 mg/dl Calcium Level 9.1 mg/dl Test 03/07/17 11:49 03/07/17 17:04 03/07/17 17:17 03/07/17 17:35 Bedside Glucose 103 mg/dl 57 mg/dl 63 mg/dl 71 mg/dl Test 03/07/17 20:36 Bedside Glucose 117 mg/dl Assessment and Plan 22-year-old male with history of IV drug abuse as well as prior MRSA infection now presents with left chest wall and upper abdominal wall abscess as well as small intrapelvic abscess. Patient now s/p surgical drainage with cultures growing MRSA. Patient will be continued on daptomycin for now. Will consider transition to oral antibiotics in the near future.
[2017-03-07 22:52] VITALS: BP 128/80; PULSE 80; TEMP 36.9; O2SAT 95
[2017-03-08] MEDS ORDERED: INSULIN ASPART 100 UNITS/ML 3 ML PEN SC ONE (02:00)
[2017-03-08] MEDS: MoRPHine SULFATE 4 MG/ML 1 ML CARP\\VIAL IV PRN ×6 (02:22→23:25)
[2017-03-08 07:35] VITALS: BP 132/88; PULSE 78; TEMP 36.9; O2SAT 94
[2017-03-08 07:51] LABS: BUN/CREATININE RATIO 5.9 (10-20); CALCIUM 9.3 mg/dl (8.5-10.1); CREATININE 5.6 mg/dl (0.60-1.40); POTASSIUM 5.6 mmol/L (3.5-5.1)
[2017-03-08] MEDS: TRAMADOL HCL 50 MG TAB PO PRN (08:28)
[2017-03-08] MEDS ORDERED: SODIUM POLYST. SULF SUSP 15G/60ML PO STA ×3 (08:57→16:13)
[2017-03-08] MEDS: INSULIN ASPART 100 UNITS/ML 3 ML PEN SC SCH ×4 (09:19→21:32)
[2017-03-08] MEDS: HEPARIN SOD 5000 UNIT/0.5 ML CARP SQ SCH (09:38)
[2017-03-08] MEDS: CHOLECALCIFEROL 1000 INTER.UNIT TAB PO SCH (09:41)
[2017-03-08] MEDS: ACETAMINOPHEN 500 MG TAB PO SCH ×2 (09:41→21:29)
[2017-03-08] MEDS: FAMOTIDINE 20 MG TAB PO SCH ×2 (09:41→21:29)
[2017-03-08] MEDS: FUROSEMIDE INJ 40 MG in SYRINGE 0 ML IV SCH (09:47)
--- NOTE | 2017-03-08 10:18 | Nephrology Progress Note ---
Nephrology Progress Note Date of Service Mar 08, 2017. Chief Complaint Follow up evaluation of TAYLOR Subjective Mr. Tijerina was seen & examined in his hospital room this morning. He reports that he is tolerating a regular diet and has been drinking orange juice on a regular basis. He currently denies dyspnea, flank discomfort or uremic symptoms. Review of Systems Constitutional: No fever Cardiovascular: No chest pain Respiratory: No dyspnea at rest Abdomen: No nausea, No vomiting Extremities: No leg edema Integumentary: No rash A complete review of systems was performed. Pertinent positives are noted above. All other systems are negative. Vital Signs Last 8 Hrs Date Time Temp Pulse Resp B/P (MAP) Pulse Ox O2 Delivery O2 Flow Rate FiO2 03/08/17 07:35 36.9 78 18 132/88 (103) 94 Room Air Last Recorded Weight Weight (Kilograms): 102.900 Physical Exam General Appearance: no apparent distress Head: normocephalic, atraumatic Eyes: PERRL, EOMI Neck: no adenopathy Respiratory/Chest: lungs clear, no respiratory distress Cardiovascular: regular rate, rhythm, no murmur Abdomen/GI: soft (hypoactive bowel sounds) Extremities/Musculoskelatal: no calf tenderness, no pedal edema Neurologic/Psych: alert, oriented x 3 Family History Diabetes mellitus Social History Smoking Status: Never smoker Smokeless Tobacco Use: No Alcohol Use: occasionally Drug Use: cocaine, heroin, marijuana, other Marital Status: single Housing Status: lives with family Occupation: unemployed, student Laboratory Results Past 24 Hours 03/08/17 06:30 Test 03/07/17 11:49 03/07/17 17:04 03/07/17 17:17 03/07/17 17:35 Bedside Glucose 103 mg/dl (70-99) 57 mg/dl (70-99) 63 mg/dl (70-99) 71 mg/dl (70-99) Test 03/07/17 20:36 03/08/17 02:00 03/08/17 06:30 03/08/17 08:10 Bedside Glucose 117 mg/dl (70-99) 208 mg/dl (70-99) 81 mg/dl (70-99) Anion Gap 6.0 mmol/L (3-11) Est Creatinine Clear Calc Drug Dose 26.7 ml/min Estimated GFR () 15.5 Estimated GFR (Non- 13.3 BUN/Creatinine Ratio 5.9 (10-20) Calcium Level 9.3 mg/dl (8.5-10.1) Allergies Coded Allergies: Azithromycin (Verified Allergy, Unknown, ., 02/27/17) Cephalosporins (Verified Allergy, Unknown, unknown, 02/27/17) mother Sulfa Antibiotics (Verified Allergy, Unknown, ., 02/27/17) Medications Current Inpatient Medications Medications (Trade) Dose Ordered Sig/Myron Route Start Time Stop Time Status Last Admin Dose Admin Zolpidem Tartrate (Ambien Tab) 5 mg HSZ PRN PO 02/27/17 12:00 03/29/17 11:59 03/07/17 23:32 5 MG Cholecalciferol (Vitamin D Tab) 1,000 inter.unit DAILY PO 02/28/17 09:00 03/30/17 08:59 03/07/17 08:35 1,000 INTER.UNIT Ondansetron HCl (Zofran Inj) 4 mg Q6H PRN IV 02/27/17 12:00 03/29/17 11:59 03/03/17 17:45 4 MG Glucose (Glucose 40% Gel) UD PRN PO 02/27/17 12:00 03/29/17 11:59 Glucose (Glucose Chew Tab) 1 tabs UD PRN PO 02/27/17 12:00 03/29/17 11:59 Dextrose (Dextrose 50% 50ML Syringe) 50 ml UD PRN IV 02/27/17 12:00 03/29/17 11:59 Glucagon (Glucagon Inj) 1 mg UD PRN SQ 02/27/17 12:00 03/29/17 11:59 Famotidine (Pepcid Tab) 20 mg Q12 PO 02/28/17 21:00 03/30/17 20:59 03/08/17 09:41 20 MG Morphine Sulfate (MoRPHine SULFATE INJ) 4 mg Q3H PRN IV 03/01/17 11:45 03/15/17 11:44 03/08/17 09:40 4 MG Heparin Sodium (Porcine) (Heparin Sq 5000 Unit/0.5ml) 5,000 unit Q12 SQ 03/02/17 09:00 04/01/17 08:59 03/07/17 08:37 5,000 UNIT Sodium Chloride ([place] Nasal [place]) 1 sprays PRN PRN NA 03/02/17 14:15 04/01/17 14:14 Tramadol HCl (Ultram Tab) 100 mg Q6H PRN PO 03/02/17 22:00 03/29/17 11:59 03/08/17 08:28 100 MG Acetaminophen (Tylenol Tab) 1,000 mg BID PO 03/02/17 21:00 04/01/17 20:59 03/08/17 09:41 1,000 MG Acetaminophen (Tylenol Tab) 1,000 mg Q12 PRN PO 03/02/17 17:15 04/01/17 17:14 Daptomycin 400 mg/ Sodium Chloride 58 ml @ 120 mls/hr Q48H IV 03/04/17 16:00 03/14/17 15:59 03/06/17 16:29 120 MLS/HR Insulin Aspart (novoLOG ASPART) SLIDING SCALE If C... 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 Tijerina has IDDM, h/o IVDA and chronic hepatitis-C. He was admitted with a left chest wall/upper abdominal wall abscess as well as a small intrapelvic abscess. Chest wall abscess I&D performed on 02/28/17. Cultures from drainage growing MRSA. Blood cultures negative. TTE did not show vegetation or evidence of valvular heart disease. CT of the pelvis 03/04/17 shows a stable 2.4 cm right obturator internus intramuscular collection. Vancomycin switched to daptomycin due to renal dysfunction. Renal US normal. Urine analysis is bland with acellular microscopy. Clinical presentation is most consistent with ATN. There was not significant evidence of acute GN on urine studies. Clinical presentation would be atypical for post infectious GN, IE or cryoglobulinemia. This is supported by normal serum C3/C4. AIN would appear less likely given clinical presentation. CK was not elevated to suggest pigment nephropathy. ATN can be attributed to infection, CT with contrast as well as medications including Toradol. Baseline creatinine has been 0.6 Recommendations TAYLOR: -- Volume status is acceptable at this time. Patient is nonoliguric. No acute indication for [employer] WORK [employer] at this time -- Patient has moderate hyperkalemia. Will add low potassium restriction to diet order. Will administer 20 mg Furosemide IV x 1 and Kayexelate 15 g po x 1 this am -- Monitor serial PRP -- Avoid NSAIDs -- Document I/O's ENDO: -- Glucose control appropriate ID: -- Monitor CPK weekly on Daptomycin -- LFT's stable. ID notes reviewed. They will consider treatment of Hepatitis C once patient is free of IVDA
[2017-03-08 11:00] VITALS: BP 136/90; PULSE 70; TEMP 37; O2SAT 95
--- NOTE | 2017-03-08 12:32 | Hospitalist Progress Note ---
Hospitalist Progress Note Date of Service Mar 08, 2017. (Ruth Reynolds PA-C) Subjective Pt evaluation today including: conversation w/ patient, physical exam, chart review, lab review, review of studies, conversation w/ property consultant, review of inpatient medication list Patient seen and evaluated. Reports upset stomach and emesis this AM. Reporting this is resolved now. Having intermittent lows of sugars. Not very conversant. Makes good eye contact but affect flat. Reporting pain at wound vac site and just tired of continued hospital stay. Has deferred further psychiatric treatment. Constitutional: No fever, No chills Respiratory: No shortness of breath Cardiovascular: No chest pain Abdomen: + pain (at wound vac site), + nausea (resolved), + vomiting (x 1 episode this AM), No diarrhea Musculoskeletal: No calf pain Male : No dysuria Heme: No abnormal bleeding/bruising (Ruth Reynolds PA-C) Medications Current Inpatient Medications Medications (Trade) Dose Ordered Sig/Myron Route Start Time Stop Time Status Last Admin Dose Admin Zolpidem Tartrate (Ambien Tab) 5 mg HSZ PRN PO 02/27/17 12:00 03/29/17 11:59 03/07/17 23:32 5 MG Cholecalciferol (Vitamin D Tab) 1,000 inter.unit DAILY PO 02/28/17 09:00 03/30/17 08:59 03/07/17 08:35 1,000 INTER.UNIT Ondansetron HCl (Zofran Inj) 4 mg Q6H PRN IV 02/27/17 12:00 03/29/17 11:59 03/03/17 17:45 4 MG Glucose (Glucose 40% Gel) UD PRN PO 02/27/17 12:00 03/29/17 11:59 Glucose (Glucose Chew Tab) 1 tabs UD PRN PO 02/27/17 12:00 03/29/17 11:59 Dextrose (Dextrose 50% 50ML Syringe) 50 ml UD PRN IV 02/27/17 12:00 03/29/17 11:59 Glucagon (Glucagon Inj) 1 mg UD PRN SQ 02/27/17 12:00 03/29/17 11:59 Famotidine (Pepcid Tab) 20 mg Q12 PO 02/28/17 21:00 03/30/17 20:59 03/08/17 09:41 20 MG Morphine Sulfate (MoRPHine SULFATE INJ) 4 mg Q3H PRN IV 03/01/17 11:45 03/15/17 11:44 03/08/17 09:40 4 MG Heparin Sodium (Porcine) (Heparin Sq 5000 Unit/0.5ml) 5,000 unit Q12 SQ 03/02/17 09:00 04/01/17 08:59 03/07/17 08:37 5,000 UNIT Sodium Chloride ([place] Nasal [place]) 1 sprays PRN PRN NA 03/02/17 14:15 04/01/17 14:14 Tramadol HCl (Ultram Tab) 100 mg Q6H PRN PO 03/02/17 22:00 03/29/17 11:59 03/08/17 08:28 100 MG Acetaminophen (Tylenol Tab) 1,000 mg BID PO 03/02/17 21:00 04/01/17 20:59 03/08/17 09:41 1,000 MG Acetaminophen (Tylenol Tab) 1,000 mg Q12 PRN PO 03/02/17 17:15 04/01/17 17:14 Daptomycin 400 mg/ Sodium Chloride 58 ml @ 120 mls/hr Q48H IV 03/04/17 16:00 03/14/17 15:59 03/06/17 16:29 120 MLS/HR Insulin Aspart (novoLOG ASPART) SLIDING SCALE If C... ACHS SC 03/05/17 12:00 04/04/17 11:59 03/08/17 09:19 5 UNITS Miscellaneous Information (Consult Glycemic Management Pharmacy) 1 ea UD PRN N/A 03/06/17 17:47 04/05/17 17:46 Furosemide 40 mg/ Syringe 4 ml @ 4 mls/min 0900 IV 03/08/17 09:00 04/07/17 08:59 03/08/17 09:47 4 MLS/MIN Insulin Glargine (Lantus Solostar Pen) SEE PROTOCOL HS SC 03/08/17 21:00 04/07/17 20:59 (Ruth Reynolds, LORENA) Objective Vital Signs Date Time Temp Pulse Resp B/P (MAP) Pulse Ox O2 Delivery O2 Flow Rate FiO2 03/08/17 11:00 37.0 70 22 136/90 (105) 95 Room Air 03/08/17 08:20 Room Air 03/08/17 07:35 36.9 78 18 132/88 (103) 94 Room Air 03/07/17 23:30 Room Air 03/07/17 22:52 36.9 80 16 128/80 (96) 95 Room Air 03/07/17 15:35 Room Air 03/07/17 15:23 36.8 76 18 130/81 (97) 96 Room Air (Ruth Reynolds PA-C) Physical Exam General Appearance: WD/WN, no apparent distress Eyes: sclerae normal ENT: hearing grossly normal Neck: supple, no JVD, trachea midline Respiratory/Chest: lungs clear, normal breath sounds, no respiratory distress, no accessory muscle use Cardiovascular: regular rate, rhythm, no gallop, no murmur Abdomen: normal bowel sounds, non tender, soft, + pertinent finding (wound vac to LUQ) Extremities: no pedal edema, no calf tenderness Neurologic/Psychiatric: alert, oriented x 3 Skin: normal color, warm/dry (Ruth Reynolds, LOREC) Laboratory Results Last 24 Hours Test 03/07/17 17:04 03/07/17 17:17 03/07/17 17:35 03/07/17 20:36 Bedside Glucose 57 mg/dl 63 mg/dl 71 mg/dl 117 mg/dl Test 03/08/17 02:00 03/08/17 06:30 03/08/17 08:10 03/08/17 12:04 Bedside Glucose 208 mg/dl 81 mg/dl 62 mg/dl Sodium Level 138 mmol/L Potassium Level 5.6 mmol/L Chloride Level 107 mmol/L Carbon Dioxide Level 25 mmol/L Anion Gap 6.0 mmol/L Blood Urea Nitrogen 33 mg/dl Creatinine 5.60 mg/dl Est Creatinine Clear Calc Drug Dose 26.7 ml/min Estimated GFR () 15.5 Estimated GFR (Non- 13.3 BUN/Creatinine Ratio 5.9 Random Glucose 122 mg/dl Calcium Level 9.3 mg/dl (Ruth Reynolds PA-C) Assessment and Plan Mr. Tijerina is a 22 y/o male with PMHx of T1DM, Hepatitis C, and IVDA who presents with MRSA skin abscess Sepsis from MRSA Abscess S/P I&D by Dr. Virk on 02/28: IMPROVING - Wound vac placed 03/03 - wound care following - Daptomycin 400 mg IV Q48H with plans to convert to oral Clindamycin on D/C - not a PICC line candidate - Evidence of pelvic fluid collection - stable - may benefit from IR drainage - TTE without vegetation and HIV negative - ID following - recommending Daptomycin at this time with plans to convert to Clinda Acute Kidney Failure 2/2 Possible ATN: SLOWLY IMPROVING - Cr at 5.6 - continue to monitor - Had associated hyperkalemia today with treatment with Kayexalate - Nephrology following - appreciate recommendations - non-oliguric; no need for dialysis T1DM: - Lantus and SSI with glycemic control Hypokalemia and Hypomagnesemia: RESOLVED - Monitor and replete as necessary Hepatitis C: - Followed with electrical line mechanic in the past but not recently - possibly contributing to renal function DVT Prophylaxis: Heparin BID Code Status: FULL RESUSCITATION Disposition: - Will await AM labs - appreciate ID recommendations for oral conversion and duration Continued [facility] stay due to: multiple IV medications needed Discharge planning: home with home health (Ruth Reynolds, PASunshineC) Reviewed: Pt Seen/Exam by Me (Sarah Lara DO) History Pt with ongoing pain issues related to wound vac. No new concerns. Had not had any bowel movements. Making good urine. Agree with HPI/ROS as noted. (Sarah Lara DO) General Appearance: WD/WN, no apparent distress Respiratory: normal breath sounds, no respiratory distress Cardiovascular: normal peripheral pulses, regular rate, rhythm Gastrointestinal: non tender, soft Extremities: non-tender, no pedal edema Neurologic/Psychiatric: alert, oriented x 3 Skin Characteristics: normal color, warm/dry (Sarah Lara DO) Assessment/Plan Agree with plan as outlined above MRSA abscess related to IVDA Abx as above ARF: likely related to abx Renal US neg Ongoing UOP HyperK: no bowel movements s/p kayexalate and lasix and repeat K is higher Repeat kayexalate and lasix and move to tele for monitoring given elevation Repeat PRP later this evening (Sarah Lara DO)
--- NOTE | 2017-03-08 14:13 | Pharmacy Progress Note ---
Glycemic Control Progress Note Date of Service Mar 08, 2017. Scope Glycemic Pharmacist consulted for glycemic control to write orders per [facility] inpatient glycemic control protocol. Objective Accuchecks BSG (last 24hrs): Test 03/07/17 17:04 03/07/17 17:17 03/07/17 17:35 03/07/17 20:36 Bedside Glucose 57 mg/dl (70-99) 63 mg/dl (70-99) 71 mg/dl (70-99) 117 mg/dl (70-99) Test 03/08/17 02:00 03/08/17 06:30 03/08/17 08:10 03/08/17 12:04 Bedside Glucose 208 mg/dl (70-99) 81 mg/dl (70-99) 62 mg/dl (70-99) Random Glucose 122 mg/dl (70-99) Test 03/08/17 12:32 03/08/17 14:00 Bedside Glucose 75 mg/dl (70-99) HbA1c: Test 02/27/17 14:54 Hemoglobin A1c 10.0 % (4.5-5.6) H Recent Pertinent Medications Outpatient Anti-diabetic Regimen: * Lantus 60 units qPM + Humalog sliding scale * A1c = 10 % 02/27/17 The patient is currently receiving: * Basal insulin: Lantus 30 units every 24 hours * Correctional Insulin: Novolog Correction per scale ACHS Goal Range: Low 100 mg/dL - High 150 mg/dL Correction Factor: 30 mg/dL/unit * Prandial insulin: Per carb ratio of 1 unit per 10 grams CHO consumed Risk Factors for Insulin Resistance: * Infection: abdominal wall cellulitis on daptomycin * Recent Surgery: POD 8 for I&D of abdominal wall * Diet: type 1 diabetic diet Outpatient Anti-Diabetic Meds see above medications Assessment & Plan ASSESSMENT: * ADA & AACE recommend a goal blood sugar range 140-180 mg/dl for the majority of critically ill & non-critically ill patients. However, more stringent targets may be selected in individual cases. Will utilize more stringent goal of 110-140mg/dl based on patient age & comorbidities. Additionally, tighter glycemic control is warranted to facilitate wound/infection healing. * Mr Tijerina is a 22 y/o M with a PMH of IV drug use and hepatitis C admitted last week (02/27/2017) for abdominal wall abscess. He is a type 1 diabetic with a basal heavy home regimen. This regimen was continued as an inpatient. During the first part of the patient's admission, his blood sugars were higher despite receiving around 80-90 units of insulin per day (primary basal at 60 units daily ). Patient's kidney function has also continued to worsen and is now currently at 5.6 mg/dL compared to 0.97 mg/dL on admission. This can make the patient highly insulin sensitive. Patient's diet does not appear to have changed. * For the past two days, the patient has had low blood sugars (~60 mg/dL) in the morning and sustained throughout the day indicating the patient is too basal heavy. Basal was reduced by 50% yesterday to 30 units. This does not appear to have affected the patient's fasting blood sugar. Fasting today was 81 mg/dL (up from 76 mg/dL) yesterday. The patient did vomit after breakfast (he blamed it on pain from movement) and was lower again at lunch. Plan to reduce all aspects of dose until hypoglycemia resolves. It is essential to give insulin as the patient is a type 1 diabetic and produces no insulin himself. PLAN FOR INPATIENT GLYCEMIC CONTROL: * DECREASE Basal insulin to LANTUS 10-20 units SQ HS (Lantus 10 units if blood sugar less than 100 mg/dL; Lantus 20 units if blood sugar 100 mg/dL or greater) * Correctional Insulin with NOVOLOG per scale ACHS * Goal Range: Low 110 mg/dL - High 140 mg/dL * Correction Factor: 40 mg/dL/unit * Nutritional / Prandial insulin per carb ratio of 1 unit per 15 grams CHO consumed * Please note that the plan above was derived based on current level of insulin resistance and hospital stress. These recommendations are appropriate for inpatient admission only. Plan of care upon discharge will need to be reassessed to avoid potential outpatient hypo/hyperglycemia. Thank you.
[2017-03-08 15:00] VITALS: BP 125/86; PULSE 70; TEMP 36.7; O2SAT 97
[2017-03-08 15:19] LABS: BUN/CREATININE RATIO 5.9 (10-20); CALCIUM 9.3 mg/dl (8.5-10.1); CREATININE 5.6 mg/dl (0.60-1.40); POTASSIUM 6.3 mmol/L (3.5-5.1)
[2017-03-08] MEDS ORDERED: NURSING VERBAL MED ORDER ONE (15:30)
[2017-03-08] MEDS: DAPTOmycin IV 400 MG in SODIUM CHLORIDE 0.9% 50ML 50 ML IV SCH (16:08)
--- NOTE | 2017-03-08 16:26 | Nephrology Progress Note ---
Nephrology Progress Note Date of Service Mar 08, 2017. Chief Complaint Follow up evaluation of TAYLOR Vital Signs Last 8 Hrs Date Time Temp Pulse Resp B/P (MAP) Pulse Ox O2 Delivery O2 Flow Rate FiO2 03/08/17 15:00 36.7 70 20 125/86 (99) 97 Room Air 03/08/17 11:00 37.0 70 22 136/90 (105) 95 Room Air I & O 24-Hour Column 03/09/17 08:00 Intake Total 720 ml Output Total 300 ml Balance 420 ml Last Recorded Weight Weight (Kilograms): 102.900 Family History Diabetes mellitus Social History Smoking Status: Never smoker Smokeless Tobacco Use: No Alcohol Use: occasionally Drug Use: cocaine, heroin, marijuana, other Marital Status: single Housing Status: lives with family Occupation: unemployed, student Laboratory Results Past 24 Hours 03/08/17 06:30 03/08/17 14:21 Test 03/07/17 17:04 03/07/17 17:17 03/07/17 17:35 03/07/17 20:36 Bedside Glucose 57 mg/dl (70-99) 63 mg/dl (70-99) 71 mg/dl (70-99) 117 mg/dl (70-99) Test 03/08/17 02:00 03/08/17 06:30 03/08/17 08:10 03/08/17 12:04 Bedside Glucose 208 mg/dl (70-99) 81 mg/dl (70-99) 62 mg/dl (70-99) Anion Gap 6.0 mmol/L (3-11) Est Creatinine Clear Calc Drug Dose 26.7 ml/min Estimated GFR () 15.5 Estimated GFR (Non- 13.3 BUN/Creatinine Ratio 5.9 (10-20) Calcium Level 9.3 mg/dl (8.5-10.1) Test 03/08/17 12:32 03/08/17 14:21 Bedside Glucose 75 mg/dl (70-99) Anion Gap 6.0 mmol/L (3-11) Est Creatinine Clear Calc Drug Dose 26.7 ml/min Estimated GFR () 15.5 Estimated GFR (Non- 13.3 BUN/Creatinine Ratio 5.9 (10-20) Calcium Level 9.3 mg/dl (8.5-10.1) Allergies Coded Allergies: Azithromycin (Verified Allergy, Unknown, ., 02/27/17) Cephalosporins (Verified Allergy, Unknown, unknown, 02/27/17) mother Sulfa Antibiotics (Verified Allergy, Unknown, ., 02/27/17) Medications Current Inpatient Medications Medications (Trade) Dose Ordered Sig/Myron Route Start Time Stop Time Status Last Admin Dose Admin Zolpidem Tartrate (Ambien Tab) 5 mg HSZ PRN PO 02/27/17 12:00 03/29/17 11:59 03/07/17 23:32 5 MG Cholecalciferol (Vitamin D Tab) 1,000 inter.unit DAILY PO 02/28/17 09:00 03/30/17 08:59 03/07/17 08:35 1,000 INTER.UNIT Ondansetron HCl (Zofran Inj) 4 mg Q6H PRN IV 02/27/17 12:00 03/29/17 11:59 03/03/17 17:45 4 MG Glucose (Glucose 40% Gel) UD PRN PO 02/27/17 12:00 03/29/17 11:59 Glucose (Glucose Chew Tab) 1 tabs UD PRN PO 02/27/17 12:00 03/29/17 11:59 Dextrose (Dextrose 50% 50ML Syringe) 50 ml UD PRN IV 02/27/17 12:00 03/29/17 11:59 Glucagon (Glucagon Inj) 1 mg UD PRN SQ 02/27/17 12:00 03/29/17 11:59 Famotidine (Pepcid Tab) 20 mg Q12 PO 02/28/17 21:00 03/30/17 20:59 03/08/17 09:41 20 MG Morphine Sulfate (MoRPHine SULFATE INJ) 4 mg Q3H PRN IV 03/01/17 11:45 03/15/17 11:44 03/08/17 12:36 4 MG Sodium Chloride ([place] Nasal [place]) 1 sprays PRN PRN NA 03/02/17 14:15 04/01/17 14:14 Tramadol HCl (Ultram Tab) 100 mg Q6H PRN PO 03/02/17 22:00 03/29/17 11:59 03/08/17 08:28 100 MG Acetaminophen (Tylenol Tab) 1,000 mg BID PO 03/02/17 21:00 04/01/17 20:59 03/08/17 09:41 1,000 MG Acetaminophen (Tylenol Tab) 1,000 mg Q12 PRN PO 03/02/17 17:15 04/01/17 17:14 Daptomycin 400 mg/ Sodium Chloride 58 ml @ 120 mls/hr Q48H IV 03/04/17 16:00 03/14/17 15:59 03/06/17 16:29 120 MLS/HR Insulin Aspart (novoLOG ASPART) SLIDING SCALE If C... ACHS [place] 03/05/17 12:00 04/04/17 11:59 03/08/17 13:00 2 UNITS Miscellaneous Information (Consult Glycemic Management Pharmacy) 1 ea UD PRN N/A 03/06/17 17:47 04/05/17 17:46 Furosemide 40 mg/ Syringe 4 ml @ 4 mls/min 0900 IV 03/08/17 09:00 04/07/17 08:59 03/08/17 09:47 4 MLS/MIN Insulin Glargine (Lantus Solostar Pen) SEE PROTOCOL HS [place] 03/08/17 21:00 04/07/17 20:59 Insulin Aspart (novoLOG ASPART) SLIDING SCALE If C... 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 Tijerina has IDDM, h/o IVDA and chronic hepatitis-C. He was admitted with a left chest wall/upper abdominal wall abscess as well as a small intrapelvic abscess. Chest wall abscess I&D performed on 02/28/17. Cultures from drainage growing MRSA. Blood cultures negative. TTE did not show vegetation or evidence of valvular heart disease. CT of the pelvis 03/04/17 shows a stable 2.4 cm right obturator internus intramuscular collection. Vancomycin switched to daptomycin due to renal dysfunction. Renal US normal. Urine analysis is bland with acellular microscopy. Clinical presentation is most consistent with ATN. There was not significant evidence of acute GN on urine studies. Clinical presentation would be atypical for post infectious GN, IE or cryoglobulinemia. This is supported by normal serum C3/C4. AIN would appear less likely given clinical presentation. CK was not elevated to suggest pigment nephropathy. ATN can be attributed to infection, CT with contrast as well as medications including Toradol. Baseline creatinine has been 0.6 Recommendations Laboratory results reviewed this afternoon. Potassium has risen to 6.3. Patient has not yet had a bowel movement. Will redose Kayexelate 15 g po x 1 now and administer Furosemide 80 mg IV x 1. Repeat potassium at 1900 hrs. Discussed w/ primary service.
[2017-03-08] MEDS ORDERED: FUROSEMIDE INJ 80 MG in SYRINGE 0 ML IV ONE (16:30)
--- NOTE | 2017-03-08 17:45 | Infectious Disease Progress Nt ---
Progress Note Date of Service Mar 08, 2017. Subjective Pt evaluation today including: conversation w/ patient, physical exam, chart review, lab review, review of studies, conversation w/ direct response consultant, review of inpatient medication list still with episodes of nausea and vomiting. Remains afebrile. No other new complaints. All Other Systems: Reviewed and Negative Medications Current Inpatient Medications Medications (Trade) Dose Ordered Sig/Myron Route Start Time Stop Time Status Last Admin Dose Admin Zolpidem Tartrate (Ambien Tab) 5 mg HSZ PRN PO 02/27/17 12:00 03/29/17 11:59 03/07/17 23:32 5 MG Cholecalciferol (Vitamin D Tab) 1,000 inter.unit DAILY PO 02/28/17 09:00 03/30/17 08:59 03/07/17 08:35 1,000 INTER.UNIT Ondansetron HCl (Zofran Inj) 4 mg Q6H PRN IV 02/27/17 12:00 03/29/17 11:59 03/03/17 17:45 4 MG Glucose (Glucose 40% Gel) UD PRN PO 02/27/17 12:00 03/29/17 11:59 Glucose (Glucose Chew Tab) 1 tabs UD PRN PO 02/27/17 12:00 03/29/17 11:59 Dextrose (Dextrose 50% 50ML Syringe) 50 ml UD PRN IV 02/27/17 12:00 03/29/17 11:59 Glucagon (Glucagon Inj) 1 mg UD PRN SQ 02/27/17 12:00 03/29/17 11:59 Famotidine (Pepcid Tab) 20 mg Q12 PO 02/28/17 21:00 03/30/17 20:59 03/08/17 09:41 20 MG Morphine Sulfate (MoRPHine SULFATE INJ) 4 mg Q3H PRN IV 03/01/17 11:45 03/15/17 11:44 03/08/17 16:23 4 MG Sodium Chloride ([place] Nasal [place]) 1 sprays PRN PRN NA 03/02/17 14:15 04/01/17 14:14 Tramadol HCl (Ultram Tab) 100 mg Q6H PRN PO 03/02/17 22:00 03/29/17 11:59 03/08/17 08:28 100 MG Acetaminophen (Tylenol Tab) 1,000 mg BID PO 03/02/17 21:00 04/01/17 20:59 03/08/17 09:41 1,000 MG Acetaminophen (Tylenol Tab) 1,000 mg Q12 PRN PO 03/02/17 17:15 04/01/17 17:14 Daptomycin 400 mg/ Sodium Chloride 58 ml @ 120 mls/hr Q48H IV 03/04/17 16:00 03/14/17 15:59 03/08/17 16:08 120 MLS/HR Insulin Aspart (novoLOG ASPART) SLIDING SCALE If C... ACHS [place] 03/05/17 12:00 04/04/17 11:59 03/08/17 13:00 2 UNITS Miscellaneous Information (Consult Glycemic Management Pharmacy) 1 ea UD PRN N/A 03/06/17 17:47 04/05/17 17:46 Furosemide 40 mg/ Syringe 4 ml @ 4 mls/min 0900 IV 03/08/17 09:00 04/07/17 08:59 03/08/17 09:47 4 MLS/MIN Insulin Glargine (Lantus Solostar Pen) SEE PROTOCOL HS [place] 03/08/17 21:00 04/07/17 20:59 Insulin Aspart (novoLOG ASPART) SLIDING SCALE If C... TODAY@0200 [place] 03/09/17 02:00 03/09/17 02:01 Objective Vital Signs Date Time Temp Pulse Resp B/P (MAP) Pulse Ox O2 Delivery O2 Flow Rate FiO2 03/08/17 15:00 36.7 70 20 125/86 (99) 97 Room Air 03/08/17 11:00 37.0 70 22 136/90 (105) 95 Room Air 03/08/17 08:20 Room Air 03/08/17 07:35 36.9 78 18 132/88 (103) 94 Room Air 03/07/17 23:30 Room Air 03/07/17 22:52 36.9 80 16 128/80 (96) 95 Room Air Physical Exam General Appearance: WD/WN, no apparent distress Eyes: normal inspection, EOMI, sclerae normal ENT: normal ENT inspection, pharynx normal Neck: supple, no adenopathy, thyroid normal, trachea midline Respiratory/Chest: chest non-tender, lungs clear, normal breath sounds, no respiratory distress Cardiovascular: regular rate, rhythm, no gallop, no JVD Abdomen: normal bowel sounds, soft, no organomegaly, + tenderness Extremities: non-tender, no calf tenderness Neurologic/Psychiatric: alert, oriented x 3 Skin: normal color, no rash, + pertinent finding ( Wound VAC in place left upper quadrant) Lymphatic: no adenopathy Laboratory Results Last 24 Hours Test 03/07/17 20:36 03/08/17 02:00 03/08/17 06:30 03/08/17 08:10 Bedside Glucose 117 mg/dl 208 mg/dl 81 mg/dl Sodium Level 138 mmol/L Potassium Level 5.6 mmol/L Chloride Level 107 mmol/L Carbon Dioxide Level 25 mmol/L Anion Gap 6.0 mmol/L Blood Urea Nitrogen 33 mg/dl Creatinine 5.60 mg/dl Est Creatinine Clear Calc Drug Dose 26.7 ml/min Estimated GFR () 15.5 Estimated GFR (Non- 13.3 BUN/Creatinine Ratio 5.9 Random Glucose 122 mg/dl Calcium Level 9.3 mg/dl Test 03/08/17 12:04 03/08/17 12:32 03/08/17 14:21 03/08/17 17:06 Bedside Glucose 62 mg/dl 75 mg/dl 204 mg/dl Sodium Level 136 mmol/L Potassium Level 6.3 mmol/L Chloride Level 105 mmol/L Carbon Dioxide Level 25 mmol/L Anion Gap 6.0 mmol/L Blood Urea Nitrogen 33 mg/dl Creatinine 5.60 mg/dl Est Creatinine Clear Calc Drug Dose 26.7 ml/min Estimated GFR () 15.5 Estimated GFR (Non- 13.3 BUN/Creatinine Ratio 5.9 Random Glucose 170 mg/dl Calcium Level 9.3 mg/dl Assessment and Plan 22-year-old male with history of IV drug abuse as well as prior MRSA infection now presents with left chest wall and upper abdominal wall abscess as well as small intrapelvic abscess. Patient now s/p surgical drainage with cultures growing MRSA. Patient will be continued on daptomycin for now. Will consider transition to oral antibiotics in the near future.
[2017-03-08 19:50] LABS: CALCIUM 9.1 mg/dl (8.5-10.1); CREATININE 5.7 mg/dl (0.60-1.40); POTASSIUM 5.7 mmol/L (3.5-5.1)
[2017-03-08 20:00] VITALS: O2SAT 97
[2017-03-08] MEDS: INSULIN GLARGINE SOLOSTAR 100 UNITS/ML 3 ML PEN SC SCH (21:31)
[2017-03-08 23:05] VITALS: BP 136/82; PULSE 82; TEMP 37.3; O2SAT 98
[2017-03-09] VITALS (7 sets, daily range): BP systolic 113–144; BP diastolic 66–93; PULSE 72–78; TEMP 36.7–37.4; O2SAT 96–98
[2017-03-09] MEDS ORDERED: INSULIN ASPART 100 UNITS/ML 3 ML PEN SC SCH (02:00)
[2017-03-09] MEDS: MoRPHine SULFATE 4 MG/ML 1 ML CARP\\VIAL IV PRN ×5 (05:03→20:38)
[2017-03-09 07:02] LABS: BUN/CREATININE RATIO 6.6 (10-20); CALCIUM 9.2 mg/dl (8.5-10.1); CREATININE 5.4 mg/dl (0.60-1.40); POTASSIUM 4.8 mmol/L (3.5-5.1)
[2017-03-09] MEDS: INSULIN ASPART 100 UNITS/ML 3 ML PEN SC SCH ×4 (07:47→20:41)
[2017-03-09] MEDS: FUROSEMIDE INJ 40 MG in SYRINGE 0 ML IV SCH (08:12)
[2017-03-09] MEDS: CHOLECALCIFEROL 1000 INTER.UNIT TAB PO SCH (08:12)
[2017-03-09] MEDS: FAMOTIDINE 20 MG TAB PO SCH ×2 (08:12→20:38)
[2017-03-09] MEDS: ACETAMINOPHEN 500 MG TAB PO SCH ×2 (08:13→20:38)
--- NOTE | 2017-03-09 09:41 | Nephrology Progress Note ---
Nephrology Progress Note Date of Service Mar 09, 2017. Chief Complaint Follow up evaluation of TAYLOR Subjective Mr. Tijerina was seen & examined in the ICU this morning. He was transferred to a monitored bed due to hyperkalemia. His mother was present at bedside. Mr. Tijerina reports a good response to IV Furosemide therapy. He tolerated the Kayexelate and reports one bowel movement. Review of Systems Constitutional: No fever Cardiovascular: No chest pain Respiratory: No dyspnea at rest Abdomen: No pain Extremities: No leg edema A complete review of systems was performed. Pertinent positives are noted above. All other systems are negative. Vital Signs Last 8 Hrs Date Time Temp Pulse Resp B/P (MAP) Pulse Ox O2 Delivery O2 Flow Rate FiO2 03/09/17 07:41 36.7 78 20 124/79 (94) 98 Room Air 03/09/17 04:35 37.0 74 18 119/66 (83) 96 Room Air 03/09/17 04:00 Room Air Last Recorded Weight Weight (Kilograms): 95.900 Physical Exam General Appearance: no apparent distress Head: normocephalic, atraumatic Eyes: PERRL, EOMI Neck: no adenopathy Respiratory/Chest: lungs clear, no respiratory distress Cardiovascular: regular rate, rhythm, no murmur Abdomen/GI: soft (hypoactive bowel sounds. No guarding) Neurologic/Psych: alert, oriented x 3 Family History Diabetes mellitus Social History Smoking Status: Never smoker Smokeless Tobacco Use: No Alcohol Use: occasionally Drug Use: cocaine, heroin, marijuana, other Marital Status: single Housing Status: lives with family Occupation: unemployed, student Laboratory Results Past 24 Hours 03/08/17 14:21 03/08/17 19:07 03/09/17 05:45 Test 03/08/17 12:04 03/08/17 12:32 03/08/17 14:21 03/08/17 17:06 Bedside Glucose 62 mg/dl (70-99) 75 mg/dl (70-99) 204 mg/dl (70-99) Anion Gap 6.0 mmol/L (3-11) Est Creatinine Clear Calc Drug Dose 26.7 ml/min Estimated GFR () 15.5 Estimated GFR (Non- 13.3 BUN/Creatinine Ratio 5.9 (10-20) Calcium Level 9.3 mg/dl (8.5-10.1) Test 03/08/17 19:07 03/08/17 21:18 03/09/17 01:51 03/09/17 05:45 Anion Gap 9.0 mmol/L (3-11) 9.0 mmol/L (3-11) Est Creatinine Clear Calc Drug Dose 26.2 ml/min 25.2 ml/min Estimated GFR () 15.1 16.2 Estimated GFR (Non- 13.1 13.9 BUN/Creatinine Ratio 6.0 (10-20) 6.6 (10-20) Calcium Level 9.1 mg/dl (8.5-10.1) 9.2 mg/dl (8.5-10.1) Bedside Glucose 389 mg/dl (70-99) 232 mg/dl (70-99) Total Creatine Kinase 13 U/L (39-308) Test 03/09/17 06:35 Bedside Glucose 178 mg/dl (70-99) Allergies Coded Allergies: Azithromycin (Verified Allergy, Unknown, ., 02/27/17) Cephalosporins (Verified Allergy, Unknown, unknown, 02/27/17) mother Sulfa Antibiotics (Verified Allergy, Unknown, ., 02/27/17) Medications Current Inpatient Medications Medications (Trade) Dose Ordered Sig/Myron Route Start Time Stop Time Status Last Admin Dose Admin Zolpidem Tartrate (Ambien Tab) 5 mg HSZ PRN PO 02/27/17 12:00 03/29/17 11:59 03/07/17 23:32 5 MG Cholecalciferol (Vitamin D Tab) 1,000 inter.unit DAILY PO 02/28/17 09:00 03/30/17 08:59 03/09/17 08:12 1,000 INTER.UNIT Ondansetron HCl (Zofran Inj) 4 mg Q6H PRN IV 02/27/17 12:00 03/29/17 11:59 03/03/17 17:45 4 MG Glucose (Glucose 40% Gel) UD PRN PO 02/27/17 12:00 03/29/17 11:59 Glucose (Glucose Chew Tab) 1 tabs UD PRN PO 02/27/17 12:00 03/29/17 11:59 Dextrose (Dextrose 50% 50ML Syringe) 50 ml UD PRN IV 02/27/17 12:00 03/29/17 11:59 Glucagon (Glucagon Inj) 1 mg UD PRN SQ 02/27/17 12:00 03/29/17 11:59 Famotidine (Pepcid Tab) 20 mg Q12 PO 02/28/17 21:00 03/30/17 20:59 03/09/17 08:12 20 MG Morphine Sulfate (MoRPHine SULFATE INJ) 4 mg Q3H PRN IV 03/01/17 11:45 03/15/17 11:44 03/09/17 08:13 4 MG Sodium Chloride ([place] Nasal [place]) 1 sprays PRN PRN NA 03/02/17 14:15 04/01/17 14:14 Tramadol HCl (Ultram Tab) 100 mg Q6H PRN PO 03/02/17 22:00 03/29/17 11:59 03/08/17 08:28 100 MG Acetaminophen (Tylenol Tab) 1,000 mg BID PO 03/02/17 21:00 04/01/17 20:59 03/09/17 08:13 1,000 MG Acetaminophen (Tylenol Tab) 1,000 mg Q12 PRN PO 03/02/17 17:15 04/01/17 17:14 Daptomycin 400 mg/ Sodium Chloride 58 ml @ 120 mls/hr Q48H IV 03/04/17 16:00 03/14/17 15:59 03/08/17 16:08 120 MLS/HR Insulin Aspart (novoLOG ASPART) SLIDING SCALE If C... 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 Tijerina has IDDM, h/o IVDA and chronic hepatitis-C. He was admitted with a left chest wall/upper abdominal wall abscess as well as a small intrapelvic abscess. Chest wall abscess I&D performed on 02/28/17. Cultures from drainage growing MRSA. Blood cultures negative. TTE did not show vegetation or evidence of valvular heart disease. CT of the pelvis 03/04/17 shows a stable 2.4 cm right obturator internus intramuscular collection. Vancomycin switched to daptomycin due to renal dysfunction. Renal US normal. Urine analysis is bland with acellular microscopy. Clinical presentation is most consistent with ATN. There was not significant evidence of acute GN on urine studies. Clinical presentation would be atypical for post infectious GN, IE or cryoglobulinemia. This is supported by normal serum C3/C4. AIN would appear less likely given clinical presentation. CK was not elevated to suggest pigment nephropathy. ATN can be attributed to infection, CT with contrast as well as medications including Toradol. Baseline creatinine has been 0.6 Recommendations TAYLOR: -- Volume status is acceptable at this time. Patient is nonoliguric. No acute indication for [employer] DES[employer] at this time -- Monitor serial PRP -- Avoid NSAIDs -- Document I/O's HYPERKALEMIA: -- Resolved. Low potassium diet has been ordered. ENDO: -- Glucose control appropriate ID: -- Monitor CPK weekly on Daptomycin -- LFT's stable. ID notes reviewed. They will consider treatment of Hepatitis C once patient is free of IVDA
--- NOTE | 2017-03-09 11:05 | Pharmacy Progress Note ---
Glycemic Control Progress Note Date of Service Mar 09, 2017. Scope Glycemic Pharmacist consulted for glycemic control to write orders per [facility] inpatient glycemic control protocol. Objective Accuchecks BSG (last 24hrs): Test 03/08/17 12:04 03/08/17 12:32 03/08/17 14:21 03/08/17 17:06 Bedside Glucose 62 mg/dl (70-99) 75 mg/dl (70-99) 204 mg/dl (70-99) Random Glucose 170 mg/dl (70-99) Test 03/08/17 19:07 03/08/17 21:18 03/09/17 01:51 03/09/17 05:45 Random Glucose 293 mg/dl (70-99) 176 mg/dl (70-99) Bedside Glucose 389 mg/dl (70-99) 232 mg/dl (70-99) Test 03/09/17 06:35 Bedside Glucose 178 mg/dl (70-99) HbA1c: Test 02/27/17 14:54 Hemoglobin A1c 10.0 % (4.5-5.6) H Recent Pertinent Medications Outpatient Anti-diabetic Regimen: * Lantus 60 units qPM + Humalog sliding scale * A1c = 10 % 02/27/17 The patient is currently receiving: * Basal insulin: Lantus 10-20 units every 24 hours (Lantus 10 units if blood sugar less than 100 mg/dL and 20 units if blood sugar 100 mg/dL or greater) * Correctional Insulin: Novolog Correction per scale ACHS Goal Range: Low 110 mg/dL - High 140 mg/dL Correction Factor: 40 mg/dL/unit * Prandial insulin: Per carb ratio of 1 unit per 15 grams CHO consumed Risk Factors for Insulin Resistance: * Infection: abdominal wall cellulitis on daptomycin * Recent Surgery: POD 9 for I&D of abdominal wall * Diet: type 1 diabetic diet Outpatient Anti-Diabetic Meds see above Assessment & Plan ASSESSMENT: * ADA & AACE recommend a goal blood sugar range 140-180 mg/dl for the majority of critically ill & non-critically ill patients. However, more stringent targets may be selected in individual cases. Will utilize more stringent goal of 110-140mg/dl based on patient age & comorbidities. Additionally, tighter glycemic control is warranted to facilitate wound/infection healing. * Mr Tijerina is a 22 y/o M with a PMH of IV drug use and hepatitis C admitted last week (02/27/2017) for abdominal wall abscess. He is a type 1 diabetic with a basal heavy home regimen. This regimen was continued as an inpatient. During the first part of the patient's admission, his blood sugars were higher despite receiving around 80-90 units of insulin per day (primary basal at 60 units daily ). Patient's kidney function has also continued to worsen and is now currently at 5.4 mg/dL (is improving each day) compared to 0.97 mg/dL on admission. This can make the patient highly insulin sensitive. Patient's diet does not appear to have changed. * Yesterday, the patient's blood sugars ranged from 62-389 mg/dL. The patient had lower blood sugars in the morning (81 mg/dL as a fasting and then 64 mg/dL at lunch after he was covered for breakfast but vomited). However, by afternoon , the patient's blood sugars increased to 204 mg/dL and 389 mg/dL. He received 3 units overnight resulting in a fasting blood sugar of 178 mg/dL. This indicates the patient is still relatively insulin sensitive. * Will increase Lantus to sliding scale of 20-30 units- this is being done slowly to prevent any future hypoglycemia. It appears that the patient may have cleared the prior insulin that had built up, but will monitor closely to ensure this is true. Tight correctional insulin as it is noticeable that prior parameters were not effective yesterday afternoon. PLAN FOR INPATIENT GLYCEMIC CONTROL: * INCREASE Basal insulin to LANTUS 20-30 units SQ HS (Lantus 20 units if blood sugar less than 180 mg/dL; Lantus 30 units if blood sugar 180 mg/dL or greater) * Correctional Insulin with NOVOLOG per scale ACHS * Goal Range: Low 110 mg/dL - High 140 mg/dL * TIGHTEN Correction Factor to 25 mg/dL/unit * TIGHTEN Nutritional / Prandial insulin per carb ratio of 1 unit per 8 grams CHO consumed * Please note that the plan above was derived based on current level of insulin resistance and hospital stress. These recommendations are appropriate for inpatient admission only. Plan of care upon discharge will need to be reassessed to avoid potential outpatient hypo/hyperglycemia. Thank you.
--- NOTE | 2017-03-09 15:55 | Infectious Disease Progress Nt ---
Progress Note Date of Service Mar 09, 2017. Subjective Pt evaluation today including: conversation w/ patient, physical exam, chart review, lab review, review of studies, conversation w/ health consultant, review of inpatient medication list Continues to complain of pain at site of wound VAC. Potassium better after Lasix and Kayexalate. Remains afebrile. All Other Systems: Reviewed and Negative Medications Current Inpatient Medications Medications (Trade) Dose Ordered Sig/Myron Route Start Time Stop Time Status Last Admin Dose Admin Zolpidem Tartrate (Ambien Tab) 5 mg HSZ PRN PO 02/27/17 12:00 03/29/17 11:59 03/07/17 23:32 5 MG Cholecalciferol (Vitamin D Tab) 1,000 inter.unit DAILY PO 02/28/17 09:00 03/30/17 08:59 03/09/17 08:12 1,000 INTER.UNIT Ondansetron HCl (Zofran Inj) 4 mg Q6H PRN IV 02/27/17 12:00 03/29/17 11:59 03/03/17 17:45 4 MG Glucose (Glucose 40% Gel) UD PRN PO 02/27/17 12:00 03/29/17 11:59 Glucose (Glucose Chew Tab) 1 tabs UD PRN PO 02/27/17 12:00 03/29/17 11:59 Dextrose (Dextrose 50% 50ML Syringe) 50 ml UD PRN IV 02/27/17 12:00 03/29/17 11:59 Glucagon (Glucagon Inj) 1 mg UD PRN SQ 02/27/17 12:00 03/29/17 11:59 Famotidine (Pepcid Tab) 20 mg Q12 PO 02/28/17 21:00 03/30/17 20:59 03/09/17 08:12 20 MG Morphine Sulfate (MoRPHine SULFATE INJ) 4 mg Q3H PRN IV 03/01/17 11:45 03/15/17 11:44 03/09/17 12:10 4 MG Sodium Chloride ([place] Nasal [place]) 1 sprays PRN PRN NA 03/02/17 14:15 04/01/17 14:14 Tramadol HCl (Ultram Tab) 100 mg Q6H PRN PO 03/02/17 22:00 03/29/17 11:59 03/08/17 08:28 100 MG Acetaminophen (Tylenol Tab) 1,000 mg BID PO 03/02/17 21:00 04/01/17 20:59 03/09/17 08:13 1,000 MG Acetaminophen (Tylenol Tab) 1,000 mg Q12 PRN PO 03/02/17 17:15 04/01/17 17:14 Daptomycin 400 mg/ Sodium Chloride 58 ml @ 120 mls/hr Q48H IV 03/04/17 16:00 03/14/17 15:59 03/08/17 16:08 120 MLS/HR Insulin Aspart (novoLOG ASPART) SLIDING SCALE If C... ACHS SC 03/05/17 12:00 04/04/17 11:59 03/09/17 12:08 10 UNITS Miscellaneous Information (Consult Glycemic Management Pharmacy) 1 ea UD PRN N/A 03/06/17 17:47 04/05/17 17:46 Furosemide 40 mg/ Syringe 4 ml @ 4 mls/min 0900 IV 03/08/17 09:00 04/07/17 08:59 03/09/17 08:12 4 MLS/MIN Insulin Glargine (Lantus Solostar Pen) SEE PROTOCOL HS SC 03/08/17 21:00 04/07/17 20:59 03/08/17 21:31 20 UNITS Objective Vital Signs Date Time Temp Pulse Resp B/P (MAP) Pulse Ox O2 Delivery O2 Flow Rate FiO2 03/09/17 12:00 Room Air 03/09/17 10:54 37.0 74 20 113/83 (93) 96 Room Air 03/09/17 08:00 Room Air 03/09/17 07:41 36.7 78 20 124/79 (94) 98 Room Air 03/09/17 04:35 37.0 74 18 119/66 (83) 96 Room Air 03/09/17 04:00 Room Air 03/08/17 23:59 Room Air 03/08/17 23:05 37.3 82 18 136/82 (100) 98 Room Air 03/08/17 20:00 97 Room Air Physical Exam General Appearance: WD/WN, no apparent distress Eyes: normal inspection, sclerae normal ENT: normal ENT inspection, pharynx normal Neck: supple, no adenopathy, trachea midline Respiratory/Chest: chest non-tender, lungs clear, normal breath sounds, no respiratory distress Cardiovascular: regular rate, rhythm, no gallop, no murmur Abdomen: normal bowel sounds, non tender, soft, no organomegaly Extremities: non-tender, no calf tenderness Neurologic/Psychiatric: alert, oriented x 3 Skin: normal color, no rash, + pertinent finding (Wound VAC in place) Lymphatic: no adenopathy Laboratory Results Last 24 Hours Test 03/08/17 17:06 03/08/17 19:07 03/08/17 21:18 03/09/17 01:51 Bedside Glucose 204 mg/dl 389 mg/dl 232 mg/dl Sodium Level 135 mmol/L Potassium Level 5.7 mmol/L Chloride Level 101 mmol/L Carbon Dioxide Level 25 mmol/L Anion Gap 9.0 mmol/L Blood Urea Nitrogen 34 mg/dl Creatinine 5.70 mg/dl Est Creatinine Clear Calc Drug Dose 26.2 ml/min Estimated GFR () 15.1 Estimated GFR (Non- 13.1 BUN/Creatinine Ratio 6.0 Random Glucose 293 mg/dl Calcium Level 9.1 mg/dl Test 03/09/17 05:45 03/09/17 06:35 03/09/17 10:57 Sodium Level 138 mmol/L Potassium Level 4.8 mmol/L Chloride Level 101 mmol/L Carbon Dioxide Level 28 mmol/L Anion Gap 9.0 mmol/L Blood Urea Nitrogen 35 mg/dl Creatinine 5.40 mg/dl Est Creatinine Clear Calc Drug Dose 25.2 ml/min Estimated GFR () 16.2 Estimated GFR (Non- 13.9 BUN/Creatinine Ratio 6.6 Random Glucose 176 mg/dl Calcium Level 9.2 mg/dl Total Creatine Kinase 13 U/L Bedside Glucose 178 mg/dl 209 mg/dl Assessment and Plan 22-year-old male with history of IV drug abuse, hepatitis-C, as well as prior MRSA infection now presents with left chest wall and upper abdominal wall abscess as well as small intrapelvic abscess. Patient now s/p surgical drainage with cultures growing MRSA. Patient will be continued on daptomycin for now. Will need repeat CT scan in the future to ensure improvement in his intrapelvic collection.
--- NOTE | 2017-03-09 16:36 | Hospitalist Progress Note ---
Hospitalist Progress Note Date of Service Mar 09, 2017. (Ruth Reynolds PA-C) Subjective Pt evaluation today including: conversation w/ patient, physical exam, chart review, lab review, review of studies, review of inpatient medication list Patient seen and evaluated. No acute events overnight. Tele stable but placed due to hyperkalemia. Patient is minimally conversant, appears depressed, but not agitated. Awaiting improvement in kidney function Discussed with his mother yesterday that we are waiting on the kidney function. Would like a copy of glucose readings to help get him an insulin pump. Respiratory: No shortness of breath Cardiovascular: No chest pain Abdomen: + pain (at wound vac site), No nausea, No vomiting, No diarrhea, No constipation Heme: No abnormal bleeding/bruising (Ruth Reynolds PA-C) Medications Current Inpatient Medications Medications (Trade) Dose Ordered Sig/Myron Route Start Time Stop Time Status Last Admin Dose Admin Zolpidem Tartrate (Ambien Tab) 5 mg HSZ PRN PO 02/27/17 12:00 03/29/17 11:59 03/07/17 23:32 5 MG Cholecalciferol (Vitamin D Tab) 1,000 inter.unit DAILY PO 02/28/17 09:00 03/30/17 08:59 03/09/17 08:12 1,000 INTER.UNIT Ondansetron HCl (Zofran Inj) 4 mg Q6H PRN IV 02/27/17 12:00 03/29/17 11:59 03/03/17 17:45 4 MG Glucose (Glucose 40% Gel) UD PRN PO 02/27/17 12:00 03/29/17 11:59 Glucose (Glucose Chew Tab) 1 tabs UD PRN PO 02/27/17 12:00 03/29/17 11:59 Dextrose (Dextrose 50% 50ML Syringe) 50 ml UD PRN IV 02/27/17 12:00 03/29/17 11:59 Glucagon (Glucagon Inj) 1 mg UD PRN SQ 02/27/17 12:00 03/29/17 11:59 Famotidine (Pepcid Tab) 20 mg Q12 PO 02/28/17 21:00 03/30/17 20:59 03/09/17 08:12 20 MG Morphine Sulfate (MoRPHine SULFATE INJ) 4 mg Q3H PRN IV 03/01/17 11:45 03/15/17 11:44 03/09/17 16:23 4 MG Sodium Chloride ([place] Nasal [place]) 1 sprays PRN PRN NA 03/02/17 14:15 04/01/17 14:14 Tramadol HCl (Ultram Tab) 100 mg Q6H PRN PO 03/02/17 22:00 03/29/17 11:59 03/08/17 08:28 100 MG Acetaminophen (Tylenol Tab) 1,000 mg BID PO 03/02/17 21:00 04/01/17 20:59 03/09/17 08:13 1,000 MG Acetaminophen (Tylenol Tab) 1,000 mg Q12 PRN PO 03/02/17 17:15 04/01/17 17:14 Daptomycin 400 mg/ Sodium Chloride 58 ml @ 120 mls/hr Q48H IV 03/04/17 16:00 03/14/17 15:59 03/08/17 16:08 120 MLS/HR Insulin Aspart (novoLOG ASPART) SLIDING SCALE If C... ACHS SC 03/05/17 12:00 04/04/17 11:59 03/09/17 16:26 2 UNITS Miscellaneous Information (Consult Glycemic Management Pharmacy) 1 ea UD PRN N/A 03/06/17 17:47 04/05/17 17:46 Furosemide 40 mg/ Syringe 4 ml @ 4 mls/min 0900 IV 03/08/17 09:00 04/07/17 08:59 03/09/17 08:12 4 MLS/MIN Insulin Glargine (Lantus Solostar Pen) SEE PROTOCOL HS SC 03/08/17 21:00 04/07/17 20:59 03/08/17 21:31 20 UNITS (Ruth Reynolds, LORENA) Objective Vital Signs Date Time Temp Pulse Resp B/P (MAP) Pulse Ox O2 Delivery O2 Flow Rate FiO2 03/09/17 15:55 37.3 72 18 124/83 (97) 98 Room Air 03/09/17 12:00 Room Air 03/09/17 10:54 37.0 74 20 113/83 (93) 96 Room Air 03/09/17 08:00 Room Air 03/09/17 07:41 36.7 78 20 124/79 (94) 98 Room Air 03/09/17 04:35 37.0 74 18 119/66 (83) 96 Room Air 03/09/17 04:00 Room Air 03/08/17 23:59 Room Air 03/08/17 23:05 37.3 82 18 136/82 (100) 98 Room Air 03/08/17 20:00 97 Room Air (Ruth Reynolds PA-C) Physical Exam General Appearance: WD/WN, no apparent distress ENT: hearing grossly normal Neck: trachea midline Respiratory/Chest: lungs clear, normal breath sounds, no respiratory distress, no accessory muscle use Cardiovascular: regular rate, rhythm, no gallop, no murmur Abdomen: normal bowel sounds, non tender, soft, + pertinent finding (wound vac in place) Neurologic/Psychiatric: alert Skin: normal color, warm/dry (Ruth Reynolds PA-C) Laboratory Results Last 24 Hours Test 03/08/17 17:06 03/08/17 19:07 03/08/17 21:18 03/09/17 01:51 Bedside Glucose 204 mg/dl 389 mg/dl 232 mg/dl Sodium Level 135 mmol/L Potassium Level 5.7 mmol/L Chloride Level 101 mmol/L Carbon Dioxide Level 25 mmol/L Anion Gap 9.0 mmol/L Blood Urea Nitrogen 34 mg/dl Creatinine 5.70 mg/dl Est Creatinine Clear Calc Drug Dose 26.2 ml/min Estimated GFR () 15.1 Estimated GFR (Non- 13.1 BUN/Creatinine Ratio 6.0 Random Glucose 293 mg/dl Calcium Level 9.1 mg/dl Test 03/09/17 05:45 03/09/17 06:35 03/09/17 10:57 03/09/17 16:19 Sodium Level 138 mmol/L Potassium Level 4.8 mmol/L Chloride Level 101 mmol/L Carbon Dioxide Level 28 mmol/L Anion Gap 9.0 mmol/L Blood Urea Nitrogen 35 mg/dl Creatinine 5.40 mg/dl Est Creatinine Clear Calc Drug Dose 25.2 ml/min Estimated GFR () 16.2 Estimated GFR (Non- 13.9 BUN/Creatinine Ratio 6.6 Random Glucose 176 mg/dl Calcium Level 9.2 mg/dl Total Creatine Kinase 13 U/L Bedside Glucose 178 mg/dl 209 mg/dl 180 mg/dl (Ruth Reynolds PA-C) Assessment and Plan Mr. Tijerina is a 22 y/o male with PMHx of T1DM, Hepatitis C, and IVDA who presents with MRSA skin abscess Sepsis from MRSA Abscess S/P I&D by Dr. Virk on 02/28: IMPROVING - Wound vac placed 03/03 - wound care following - Rx needs signed by surgeon - Daptomycin 400 mg IV Q48H with plans to convert to oral Clindamycin on D/C - not a PICC line candidate - Evidence of pelvic fluid collection - stable - may benefit from IR drainage - TTE without vegetation and HIV negative - ID following - recommending Daptomycin at this time with plans to convert to Clinda Acute Kidney Failure 2/2 Possible ATN: SLOWLY IMPROVING - Cr at 5.4 - continue to monitor - Nephrology following - appreciate recommendations - non-oliguric; no need for dialysis T1DM: - Lantus and SSI with glycemic control Hypokalemia and Hypomagnesemia: RESOLVED - Monitor and replete as necessary Hepatitis C: - 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 He did not speak to me much today. Tolerating PO. Agree with HPI/ROS (Sarah Lara DO) General Appearance: WD/WN, no apparent distress Respiratory: normal breath sounds, no respiratory distress Cardiovascular: normal peripheral pulses, regular rate, rhythm Gastrointestinal: non tender, soft Extremities: non-tender, no pedal edema Neurologic/Psychiatric: alert, depressed affect Skin Characteristics: normal color, warm/dry (Sarah Lara DO) Assessment/Plan Agree with plan as outlined above MRSA abscess related to IVDA Abx as above ARF: likely related to abx Renal US neg Ongoing UOP Discussed with Dr. Ariza and pt cannot be d/c'd until cr is around 2.0 HyperK: Improving, will continue to monitor (Sarah Lara, DO)
[2017-03-09] MEDS: INSULIN GLARGINE SOLOSTAR 100 UNITS/ML 3 ML PEN SC SCH (20:42)
[2017-03-09] MEDS: ZOLPIDEM TARTRATE 5 MG TAB PO PRN (23:38)
[2017-03-10] MEDS: MoRPHine SULFATE 4 MG/ML 1 ML CARP\\VIAL IV PRN ×5 (00:27→18:16)
[2017-03-10] MEDS ORDERED: INSULIN PROTOCOL GOAL RANGE ONE (02:45)
[2017-03-10] MEDS ORDERED: INSULIN IV INFUSION PROTOCOL SCH (03:10)
[2017-03-10] MEDS ORDERED: INSULIN HUMAN REGULAR IV BOLUS 2.5 UNIT in SYRINGE 0 ML IV SCH (03:15)
[2017-03-10] MEDS: INSULIN REGULAR 250 UNITS in SODIUM CHLORIDE 0.9% 250ML 250 ML IV SCH ×2 (03:27→11:30)
[2017-03-10 04:35] VITALS: BP 126/70; PULSE 74; TEMP 37; O2SAT 95
[2017-03-10 07:20] VITALS: BP 128/75; PULSE 80; TEMP 36.7; O2SAT 96
[2017-03-10 07:37] LABS: HEMATOCRIT 31.9 % (42-52); MEAN CELL VOLUME 87.9 fL (80-100); MEAN CORPUSCULAR HEMOGLOBIN 27.5 pg (25-34); MEAN CORPUSCULAR HGB CONC 31.3 g/dl (32-36); MEAN PLATELET VOLUME 8.1 fL (7.4-10.4); PLATELET COUNT 601 K/uL (130-400); RED BLOOD COUNT 3.63 M/uL (4.7-6.1)
[2017-03-10] MEDS: INSULIN ASPART 100 UNITS/ML 3 ML PEN SC SCH ×6 (07:46→21:30)
[2017-03-10 08:15] LABS: BUN/CREATININE RATIO 9.3 (10-20); CALCIUM 9.6 mg/dl (8.5-10.1); CREATININE 4.9 mg/dl (0.60-1.40); POTASSIUM 4.3 mmol/L (3.5-5.1)
[2017-03-10 08:30] LABS: BETA-HYDROXYBUTYRATE 0.49 mg/dL (0.2-2.81)
--- NOTE | 2017-03-10 09:58 | Nephrology Progress Note ---
Nephrology Progress Note Date of Service Mar 10, 2017. Chief Complaint Follow up evaluation of TAYLOR Subjective Mr. Tijerina was seen & examined in the ICU this morning. His mother was present at bedside. The patient reports difficulty w/ glycemic control overnight. He denies fever, dyspnea or uremic symptoms. He reports brisk urine output Review of Systems Constitutional: No fever Cardiovascular: No chest pain Respiratory: No dyspnea at rest Abdomen: No pain, No nausea, No vomiting Genitourinary - Male: No dysuria, No gross hematuria Extremities: No leg edema A complete review of systems was performed. Pertinent positives are noted above. All other systems are negative. Vital Signs Last 8 Hrs Date Time Temp Pulse Resp B/P (MAP) Pulse Ox O2 Delivery O2 Flow Rate FiO2 03/10/17 07:20 36.7 80 16 128/75 (92) 96 Room Air 03/10/17 04:35 37.0 74 18 126/70 (88) 95 Room Air 03/10/17 04:00 Room Air Last Recorded Weight Weight (Kilograms): 92.200 Physical Exam General Appearance: no apparent distress Head: normocephalic, atraumatic Eyes: PERRL, EOMI Neck: no adenopathy Respiratory/Chest: lungs clear, no respiratory distress Cardiovascular: regular rate, rhythm, no murmur Abdomen/GI: non tender (LUQ wound vac in place), soft Extremities/Musculoskelatal: normal inspection, no pedal edema Neurologic/Psych: alert, oriented x 3 Family History Diabetes mellitus Social History Smoking Status: Never smoker Smokeless Tobacco Use: No Alcohol Use: occasionally Drug Use: cocaine, heroin, marijuana, other Marital Status: single Housing Status: lives with family Occupation: unemployed, student Laboratory Results Past 24 Hours 03/10/17 07:11 03/10/17 07:11 Test 03/09/17 10:57 03/09/17 16:19 03/09/17 20:13 03/10/17 02:22 Bedside Glucose 209 mg/dl (70-99) 180 mg/dl (70-99) 403 mg/dl (70-99) 490 mg/dl (70-99) Test 03/10/17 04:33 03/10/17 05:31 03/10/17 06:24 03/10/17 07:11 Bedside Glucose 476 mg/dl (70-99) 400 mg/dl (70-99) 368 mg/dl (70-99) Red Blood Count 3.63 M/uL (4.7-6.1) Mean Corpuscular Volume 87.9 fL (80-100) Mean Corpuscular Hemoglobin 27.5 pg (25-34) Mean Corpuscular Hemoglobin Concent 31.3 g/dl (32-36) RDW Standard Deviation 41.3 fL (36.4-46.3) RDW Coefficient of Variation 12.8 % (11.5-14.5) Mean Platelet Volume 8.1 fL (7.4-10.4) Anion Gap 8.0 mmol/L (3-11) Est Creatinine Clear Calc Drug Dose 27.7 ml/min Estimated GFR () 18.2 Estimated GFR (Non- 15.7 BUN/Creatinine Ratio 9.3 (10-20) Calcium Level 9.6 mg/dl (8.5-10.1) Beta-Hydroxybutyric Acid 0.49 mg/dL (0.2-2.81) Test 03/10/17 07:31 03/10/17 08:33 Bedside Glucose 292 mg/dl (70-99) 239 mg/dl (70-99) Allergies Coded Allergies: Azithromycin (Verified Allergy, Unknown, ., 02/27/17) Cephalosporins (Verified Allergy, Unknown, unknown, 02/27/17) mother Sulfa Antibiotics (Verified Allergy, Unknown, ., 02/27/17) Medications Current Inpatient Medications Medications (Trade) Dose Ordered Sig/Myron Route Start Time Stop Time Status Last Admin Dose Admin Zolpidem Tartrate (Ambien Tab) 5 mg HSZ PRN PO 02/27/17 12:00 03/29/17 11:59 03/09/17 23:38 5 MG Cholecalciferol (Vitamin D Tab) 1,000 inter.unit DAILY PO 02/28/17 09:00 03/30/17 08:59 03/09/17 08:12 1,000 INTER.UNIT Ondansetron HCl (Zofran Inj) 4 mg Q6H PRN IV 02/27/17 12:00 03/29/17 11:59 03/03/17 17:45 4 MG Glucose (Glucose 40% Gel) UD PRN PO 02/27/17 12:00 03/29/17 11:59 Glucose (Glucose Chew Tab) 1 tabs UD PRN PO 02/27/17 12:00 03/29/17 11:59 Dextrose (Dextrose 50% 50ML Syringe) 50 ml UD PRN IV 02/27/17 12:00 03/29/17 11:59 Glucagon (Glucagon Inj) 1 mg UD PRN SQ 02/27/17 12:00 03/29/17 11:59 Famotidine (Pepcid Tab) 20 mg Q12 PO 02/28/17 21:00 03/30/17 20:59 03/09/17 20:38 20 MG Morphine Sulfate (MoRPHine SULFATE INJ) 4 mg Q3H PRN IV 03/01/17 11:45 03/15/17 11:44 03/10/17 07:57 4 MG Sodium Chloride ([place] Nasal [place]) 1 sprays PRN PRN NA 03/02/17 14:15 04/01/17 14:14 Tramadol HCl (Ultram Tab) 100 mg Q6H PRN PO 03/02/17 22:00 03/29/17 11:59 03/08/17 08:28 100 MG Acetaminophen (Tylenol Tab) 1,000 mg BID PO 03/02/17 21:00 04/01/17 20:59 03/09/17 20:38 1,000 MG Acetaminophen (Tylenol Tab) 1,000 mg Q12 PRN PO 03/02/17 17:15 04/01/17 17:14 Daptomycin 400 mg/ Sodium Chloride 58 ml @ 120 mls/hr Q48H IV 03/04/17 16:00 03/14/17 15:59 03/08/17 16:08 120 MLS/HR Miscellaneous Information (Consult Glycemic Management Pharmacy) 1 ea UD PRN N/A 03/06/17 17:47 04/05/17 17:46 Furosemide 40 mg/ Syringe 4 ml @ 4 mls/min 0900 IV 03/08/17 09:00 04/07/17 08:59 03/09/17 08:12 4 MLS/MIN Insulin Aspart (novoLOG ASPART) SLIDING SCALE [facility] 03/10/17 08:00 04/09/17 07:59 03/10/17 07:46 9 UNITS Insulin Human Regular 250 units/ Sodium Chloride 252.5 ml @ 0 mls/hr DAILY@1130 IV 03/10/17 03:15 04/09/17 03:14 03/10/17 03:27 2.4 MLS/HR Insulin Glargine (Lantus Solostar Pen) BID SC 03/10/17 10:00 04/09/17 09:59 Impression (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 Tijerina has IDDM, h/o IVDA and chronic hepatitis C. He was admitted with a left chest / upper abdominal wall abscess as well as a small intrapelvic abscess. Chest wall abscess I&D performed on 02/28/17. Cultures from drainage growing MRSA. Blood cultures negative. TTE did not show vegetation or evidence of valvular heart disease. CT of the pelvis 03/04/17 shows a stable 2.4 cm right obturator internus intramuscular collection. Vancomycin switched to daptomycin due to renal dysfunction. Renal US normal. Urine analysis is bland with acellular microscopy. Clinical presentation is most consistent with ATN. ATN can be attributed to infection, CT with contrast as well as medications including Toradol. Baseline creatinine has been 0.6 Recommendations TAYLOR: -- Volume status is acceptable at this time. Patient is nonoliguric. No acute indication for TABLET COATER at this time -- Patient is now in the recovery phase of ATN. Creatinine has dropped to 4.9 w / EGFR 15 cc/min. Recommend continued inpatient monitoring until creatinine ~ 2.0 -- Monitor PRP, document I&O's -- Avoid NSAIDs HYPERKALEMIA: -- Resolved. Low potassium diet has been ordered. ENDO: -- Glucose control appropriate ID: -- Monitor CPK weekly on Daptomycin -- LFT's stable. ID notes reviewed. They will consider treatment of Hepatitis C once patient is free of IVDA
[2017-03-10] MEDS: INSULIN GLARGINE SOLOSTAR 100 UNITS/ML 3 ML PEN SC SCH ×2 (10:46→21:31)
[2017-03-10] MEDS: FAMOTIDINE 20 MG TAB PO SCH ×2 (10:50→21:28)
[2017-03-10] MEDS: FUROSEMIDE INJ 40 MG in SYRINGE 0 ML IV SCH (10:50)
[2017-03-10] MEDS: CHOLECALCIFEROL 1000 INTER.UNIT TAB PO SCH (10:51)
[2017-03-10] MEDS: ACETAMINOPHEN 500 MG TAB PO SCH ×2 (10:51→21:28)
[2017-03-10 11:39] VITALS: BP 124/70; PULSE 81; TEMP 37; O2SAT 96
--- NOTE | 2017-03-10 12:59 | Pharmacy Progress Note ---
Glycemic Control Progress Note Date of Service Mar 10, 2017. Scope Glycemic Pharmacist consulted for glycemic control to write orders per [facility] inpatient glycemic control protocol. Objective Accuchecks BSG (last 24hrs): Test 03/09/17 16:19 03/09/17 20:13 03/10/17 02:22 03/10/17 04:33 Bedside Glucose 180 mg/dl (70-99) 403 mg/dl (70-99) 490 mg/dl (70-99) 476 mg/dl (70-99) Test 03/10/17 05:31 03/10/17 06:24 03/10/17 07:11 03/10/17 07:31 Bedside Glucose 400 mg/dl (70-99) 368 mg/dl (70-99) 292 mg/dl (70-99) Random Glucose 310 mg/dl (70-99) Test 03/10/17 08:33 03/10/17 09:31 03/10/17 10:32 03/10/17 11:37 Bedside Glucose 239 mg/dl (70-99) 178 mg/dl (70-99) 168 mg/dl (70-99) 171 mg/dl (70-99) HbA1c: Test 02/27/17 14:54 Hemoglobin A1c 10.0 % (4.5-5.6) H Recent Pertinent Medications The patient is currently receiving: * IV INSULIN INFUSION moderate stress protocol * goal range 140-180mg/dl Outpatient Anti-Diabetic Meds Lantus and Humalog Assessment & Plan ASSESSMENT: * See progress note from 03/09/17 for more background info, in short: * Pt receiving IV infusion insulin for hyperglycemia secondary to baseline uncontrolled type 1 diabetic, stress/Sepsis MRSA infection, on IV Daptomycin, TAYLOR * Pt to remain inpatient until SCR ~2.0 per nephrology * Patient is currently receiving an average rate of 2-3 units/hr of IV insulin * BSGs ranging 140 - 180 mg/dl over the past 6 hours * Changes needed to insulin regimen: * I will begin to titrate patient off of insulin drip, overlapping Lantus x 6 hours PLAN FOR INPATIENT GLYCEMIC CONTROL: * Discontinue IV insulin infusion at 1700 today * Goal Range 140 - 180 mg/dl * Basal insulin * Lantus 20 units SQ BID - first dose at 1100 today (overlap 6 hours with insulin drip) * for BSG < 90mg/dl - HOLD * for BSG 90-120mg/dL - 10 units * for BSG > 120mg/dl - 20 units * Bolus insulin * NovoLog per scale ACHS or Q6hrs while NPO and overnight at 0000 and 0400 to ensure glycemic control overnight * Goal Range: Low 120 mg/dL - High 160 mg/dL for type 1 with poor control and very liable BSGs when on SQ regimen. * Correction Factor: 20 mg/dL/unit * Nutritional / Prandial insulin per carb ratio of 1 unit per 7 grams CHO consumed * Please note that the plan above was derived based on current level of insulin resistance and hospital stress. These recommendations are appropriate for inpatient admission only. Plan of care upon discharge will need to be reassessed to avoid potential outpatient hypo/hyperglycemia. Thank you.
--- NOTE | 2017-03-10 14:19 | Hospitalist Progress Note ---
Hospitalist Progress Note Date of Service Mar 10, 2017. (Jacque Antony ., LOREC) Subjective Pt evaluation today including: conversation w/ patient, physical exam, lab review, review of studies, review of inpatient medication list Voiding: no voiding problems Patient denies any complaints. Eating and drinking OK. Sugars spiked last evening and placed on IV insulin drip- patient denies intake of other foods last evening beside dinner Mild pain to incision site. Patient denies any fever, chills, sweats, lightheadedness, dizziness, vision changes, CP, palpitations, edema, SOB, wheezing, cough, abdominal pain, nausea, vomiting, diarrhea, urinary symptoms, melena, numbness/tingling, weakness, muscle/joint pain, anxiety/depression, active bleeding, or new skin discoloration/changes. (Jacque Antony ., LOREC) Medications Current Inpatient Medications Medications (Trade) Dose Ordered Sig/Myron Route Start Time Stop Time Status Last Admin Dose Admin Zolpidem Tartrate (Ambien Tab) 5 mg HSZ PRN PO 02/27/17 12:00 03/29/17 11:59 03/09/17 23:38 5 MG Cholecalciferol (Vitamin D Tab) 1,000 inter.unit DAILY PO 02/28/17 09:00 03/30/17 08:59 03/10/17 10:51 1,000 INTER.UNIT Ondansetron HCl (Zofran Inj) 4 mg Q6H PRN IV 02/27/17 12:00 03/29/17 11:59 03/03/17 17:45 4 MG Glucose (Glucose 40% Gel) UD PRN PO 02/27/17 12:00 03/29/17 11:59 Glucose (Glucose Chew Tab) 1 tabs UD PRN PO 02/27/17 12:00 03/29/17 11:59 Dextrose (Dextrose 50% 50ML Syringe) 50 ml UD PRN IV 02/27/17 12:00 03/29/17 11:59 Glucagon (Glucagon Inj) 1 mg UD PRN SQ 02/27/17 12:00 03/29/17 11:59 Famotidine (Pepcid Tab) 20 mg Q12 PO 02/28/17 21:00 03/30/17 20:59 03/10/17 10:50 20 MG Morphine Sulfate (MoRPHine SULFATE INJ) 4 mg Q3H PRN IV 03/01/17 11:45 03/15/17 11:44 03/10/17 10:59 4 MG Sodium Chloride ([place] Nasal [place]) 1 sprays PRN PRN NA 03/02/17 14:15 04/01/17 14:14 Tramadol HCl (Ultram Tab) 100 mg Q6H PRN PO 03/02/17 22:00 03/29/17 11:59 03/08/17 08:28 100 MG Acetaminophen (Tylenol Tab) 1,000 mg BID PO 03/02/17 21:00 04/01/17 20:59 03/10/17 10:51 1,000 MG Acetaminophen (Tylenol Tab) 1,000 mg Q12 PRN PO 03/02/17 17:15 04/01/17 17:14 Daptomycin 400 mg/ Sodium Chloride 58 ml @ 120 mls/hr Q48H IV 03/04/17 16:00 03/14/17 15:59 03/08/17 16:08 120 MLS/HR Miscellaneous Information (Consult Glycemic Management Pharmacy) 1 ea UD PRN N/A 03/06/17 17:47 04/05/17 17:46 Furosemide 40 mg/ Syringe 4 ml @ 4 mls/min 0900 IV 03/08/17 09:00 04/07/17 08:59 03/10/17 10:50 4 MLS/MIN Insulin Human Regular 250 units/ Sodium Chloride 252.5 ml @ 0 mls/hr DAILY@1130 IV 03/10/17 03:15 03/10/17 17:00 03/10/17 03:27 2.4 MLS/HR Insulin Glargine (Lantus Solostar Pen) BID SC 03/10/17 10:00 04/09/17 09:59 03/10/17 10:46 20 UNITS Insulin Aspart (novoLOG ASPART) SLIDING SCALE ACHS SC 03/10/17 16:15 04/09/17 16:14 Insulin Aspart (novoLOG ASPART) SLIDING SCALE 0000,0400 SC 03/11/17 00:00 04/10/17 00:00 (Jacque Antony, LORENA) Objective Vital Signs Date Time Temp Pulse Resp B/P (MAP) Pulse Ox O2 Delivery O2 Flow Rate FiO2 03/10/17 12:00 Room Air 03/10/17 11:39 37.0 81 16 124/70 (88) 96 Room Air 03/10/17 11:07 Room Air 03/10/17 08:00 Room Air 03/10/17 07:20 36.7 80 16 128/75 (92) 96 Room Air 03/10/17 04:35 37.0 74 18 126/70 (88) 95 Room Air 03/10/17 04:00 Room Air 03/09/17 23:59 96 Room Air 03/09/17 23:00 37.2 76 16 125/77 (93) 96 Room Air 03/09/17 20:00 Room Air 03/09/17 19:04 37.4 75 18 144/93 (110) 97 Room Air 03/09/17 16:00 Room Air 03/09/17 15:55 37.3 72 18 124/83 (97) 98 Room Air (Jacque Antony, PA-C) Physical Exam General Appearance: no apparent distress Eyes: normal inspection, PERRL ENT: hearing grossly normal Neck: supple Respiratory/Chest: lungs clear, no respiratory distress, no accessory muscle use Cardiovascular: regular rate, rhythm Abdomen: normal bowel sounds, non tender, soft, + pertinent finding (Wound vac in place ) Extremities: no pedal edema, no calf tenderness Neurologic/Psychiatric: alert, oriented x 3, + depressed affect Skin: normal color, warm/dry, no rash (Jacque Antony ., PA-C) Laboratory Results Last 24 Hours Test 03/09/17 16:19 03/09/17 20:13 03/10/17 02:22 03/10/17 04:33 Bedside Glucose 180 mg/dl 403 mg/dl 490 mg/dl 476 mg/dl Test 03/10/17 05:31 03/10/17 06:24 03/10/17 07:11 03/10/17 07:31 Bedside Glucose 400 mg/dl 368 mg/dl 292 mg/dl White Blood Count 9.80 K/uL Red Blood Count 3.63 M/uL Hemoglobin 10.0 g/dL Hematocrit 31.9 % Mean Corpuscular Volume 87.9 fL Mean Corpuscular Hemoglobin 27.5 pg Mean Corpuscular Hemoglobin Concent 31.3 g/dl RDW Standard Deviation 41.3 fL RDW Coefficient of Variation 12.8 % Platelet Count 601 K/uL Mean Platelet Volume 8.1 fL Sodium Level 134 mmol/L Potassium Level 4.3 mmol/L Chloride Level 98 mmol/L Carbon Dioxide Level 28 mmol/L Anion Gap 8.0 mmol/L Blood Urea Nitrogen 45 mg/dl Creatinine 4.90 mg/dl Est Creatinine Clear Calc Drug Dose 27.7 ml/min Estimated GFR () 18.2 Estimated GFR (Non- 15.7 BUN/Creatinine Ratio 9.3 Random Glucose 310 mg/dl Calcium Level 9.6 mg/dl Beta-Hydroxybutyric Acid 0.49 mg/dL Test 03/10/17 08:33 03/10/17 09:31 03/10/17 10:32 03/10/17 11:37 Bedside Glucose 239 mg/dl 178 mg/dl 168 mg/dl 171 mg/dl Test 03/10/17 12:34 03/10/17 13:35 Bedside Glucose 208 mg/dl 176 mg/dl (Jacque Antony, PA-C) Assessment and Plan Mr. Tijerina is a 22 y/o male with PMHx of T1DM, Hepatitis C, and IVDA who presents with MRSA skin abscess Sepsis from MRSA Abscess S/P I&D by Dr. Virk on 02/28- IMPROVING: - Wound vac placed 03/03- wound care following - Daptomycin 400 mg IV Q48H with plans to convert to oral Clindamycin on D/C- not a PICC line candidate due to IVDA- ID following - Evidence of pelvic fluid collection- stable- will need follow-up CT - TTE without vegetation and HIV negative AKF, likely secondary to ATN- IMPROVING: - Cr at 4.9 - continue to monitor - Nephrology following- appreciate recommendations- non-oliguric; no need for dialysis - Hyperkalemia- RESOLVED: Treated w/ Kayexalate T1DM- HgbA1c 10%: - Pharmacy consulted for glycemic management - Placed on IV insulin drip overnight- spoke w/ pharmacy, will transition off drip when able ?underlying depression: - Psych consulted- believe is situational - Continue to monitor- may need to be started on antidepressant - Encourage good sleep/awake schedule, open blinds during daytime, walk halls, etc.. 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 I agree w/ the gonzales components of her documentation. Pt w/o complaints - "I'm just tired." He barely opened his eyes during the visit. He denied depression, again just stating he was tired. Hadn't been out in the hallway for a walk in the last few days. VSS afebrile gen - flat affect mouth - MMM heart - RRR lungs - CTA b/l abd - soft skin - wound vac in place LUQ on abd wall ext - trace edema BMP - Cr 4.9 A/P: 1. sepsis 2nd to MRSA abscess on abdominal wall s/p I&D now with wound vac 2. ATN (suspected) - improving; nonoliguric. Cont lasix IV and daily labs. 3. suspected depression - would strongly recommend antidepressant at this point. 4. T1DM, uncontrolled - unclear why he spiked last pm; agree with insulin drip , however - pharmacy to manage. if tele is stable overnight then can go to med/surg Anup JUAREZ MD (Jon Juarez MD)
[2017-03-10 15:00] VITALS: Ht 188 cm; Wt 90.4 kg
[2017-03-10 15:50] VITALS: BP 109/63; PULSE 77; TEMP 37.1; O2SAT 97
[2017-03-10] MEDS: DAPTOmycin IV 400 MG in SODIUM CHLORIDE 0.9% 50ML 50 ML IV SCH (16:14)
--- NOTE | 2017-03-10 17:48 | Infectious Disease Progress Nt ---
Progress Note Date of Service Mar 10, 2017. Subjective Pt evaluation today including: conversation w/ patient, physical exam, chart review, lab review, review of studies, conversation w/ [employer] sales consultant, review of inpatient medication list Patient offering no new specific complaints. Pain in upper abdomen/ chest wall about the same. No fever. Tolerating antibiotic without apparent difficulty. Slight improvement in renal function. All Other Systems: Reviewed and Negative Medications Current Inpatient Medications Medications (Trade) Dose Ordered Sig/Myron Route Start Time Stop Time Status Last Admin Dose Admin Zolpidem Tartrate (Ambien Tab) 5 mg HSZ PRN PO 02/27/17 12:00 03/29/17 11:59 03/09/17 23:38 5 MG Cholecalciferol (Vitamin D Tab) 1,000 inter.unit DAILY PO 02/28/17 09:00 03/30/17 08:59 03/10/17 10:51 1,000 INTER.UNIT Ondansetron HCl (Zofran Inj) 4 mg Q6H PRN IV 02/27/17 12:00 03/29/17 11:59 03/03/17 17:45 4 MG Glucose (Glucose 40% Gel) UD PRN PO 02/27/17 12:00 03/29/17 11:59 Glucose (Glucose Chew Tab) 1 tabs UD PRN PO 02/27/17 12:00 03/29/17 11:59 Dextrose (Dextrose 50% 50ML Syringe) 50 ml UD PRN IV 02/27/17 12:00 03/29/17 11:59 Glucagon (Glucagon Inj) 1 mg UD PRN SQ 02/27/17 12:00 03/29/17 11:59 Famotidine (Pepcid Tab) 20 mg Q12 PO 02/28/17 21:00 03/30/17 20:59 03/10/17 10:50 20 MG Morphine Sulfate (MoRPHine SULFATE INJ) 4 mg Q3H PRN IV 03/01/17 11:45 03/15/17 11:44 03/10/17 14:56 4 MG Sodium Chloride ([place] Nasal [place]) 1 sprays PRN PRN NA 03/02/17 14:15 04/01/17 14:14 Tramadol HCl (Ultram Tab) 100 mg Q6H PRN PO 03/02/17 22:00 03/29/17 11:59 03/08/17 08:28 100 MG Acetaminophen (Tylenol Tab) 1,000 mg BID PO 03/02/17 21:00 04/01/17 20:59 03/10/17 10:51 1,000 MG Acetaminophen (Tylenol Tab) 1,000 mg Q12 PRN PO 03/02/17 17:15 04/01/17 17:14 Daptomycin 400 mg/ Sodium Chloride 58 ml @ 120 mls/hr Q48H IV 03/04/17 16:00 03/14/17 15:59 03/10/17 16:14 120 MLS/HR Miscellaneous Information (Consult Glycemic Management Pharmacy) 1 ea UD PRN N/A 03/06/17 17:47 04/05/17 17:46 Furosemide 40 mg/ Syringe 4 ml @ 4 mls/min 0900 IV 03/08/17 09:00 04/07/17 08:59 03/10/17 10:50 4 MLS/MIN Insulin Glargine (Lantus Solostar Pen) BID SC 03/10/17 10:00 04/09/17 09:59 03/10/17 10:46 20 UNITS Insulin Aspart (novoLOG ASPART) SLIDING SCALE ACHS SC 03/10/17 16:15 04/09/17 16:14 03/10/17 17:06 9 UNITS Insulin Aspart (novoLOG ASPART) SLIDING SCALE 0000,0400 IA 03/11/17 00:00 04/10/17 00:00 Objective Vital Signs Date Time Temp Pulse Resp B/P (MAP) Pulse Ox O2 Delivery O2 Flow Rate FiO2 03/10/17 16:00 Room Air 03/10/17 15:50 37.1 77 16 109/63 (78) 97 03/10/17 15:12 Room Air 03/10/17 12:00 Room Air 03/10/17 11:39 37.0 81 16 124/70 (88) 96 Room Air 03/10/17 11:07 Room Air 03/10/17 08:00 Room Air 03/10/17 07:20 36.7 80 16 128/75 (92) 96 Room Air 03/10/17 04:35 37.0 74 18 126/70 (88) 95 Room Air 03/10/17 04:00 Room Air 03/09/17 23:59 96 Room Air 03/09/17 23:00 37.2 76 16 125/77 (93) 96 Room Air 03/09/17 20:00 Room Air 03/09/17 19:04 37.4 75 18 144/93 (110) 97 Room Air Physical Exam General Appearance: WD/WN, no apparent distress Eyes: normal inspection, sclerae normal ENT: normal ENT inspection, pharynx normal Neck: supple, no adenopathy, trachea midline Respiratory/Chest: chest non-tender, lungs clear, normal breath sounds, no respiratory distress Cardiovascular: regular rate, rhythm, no gallop, no murmur Abdomen: normal bowel sounds, non tender, soft, no organomegaly Extremities: non-tender, no calf tenderness Neurologic/Psychiatric: alert, oriented x 3 Skin: normal color, no rash, + pertinent finding ( Wound VAC in place) Lymphatic: no adenopathy Laboratory Results Last 24 Hours Test 03/09/17 20:13 03/10/17 02:22 03/10/17 04:33 03/10/17 05:31 Bedside Glucose 403 mg/dl 490 mg/dl 476 mg/dl 400 mg/dl Test 03/10/17 06:24 03/10/17 07:11 03/10/17 07:31 03/10/17 08:33 Bedside Glucose 368 mg/dl 292 mg/dl 239 mg/dl White Blood Count 9.80 K/uL Red Blood Count 3.63 M/uL Hemoglobin 10.0 g/dL Hematocrit 31.9 % Mean Corpuscular Volume 87.9 fL Mean Corpuscular Hemoglobin 27.5 pg Mean Corpuscular Hemoglobin Concent 31.3 g/dl RDW Standard Deviation 41.3 fL RDW Coefficient of Variation 12.8 % Platelet Count 601 K/uL Mean Platelet Volume 8.1 fL Sodium Level 134 mmol/L Potassium Level 4.3 mmol/L Chloride Level 98 mmol/L Carbon Dioxide Level 28 mmol/L Anion Gap 8.0 mmol/L Blood Urea Nitrogen 45 mg/dl Creatinine 4.90 mg/dl Est Creatinine Clear Calc Drug Dose 27.7 ml/min Estimated GFR () 18.2 Estimated GFR (Non- 15.7 BUN/Creatinine Ratio 9.3 Random Glucose 310 mg/dl Calcium Level 9.6 mg/dl Beta-Hydroxybutyric Acid 0.49 mg/dL Test 03/10/17 09:31 03/10/17 10:32 03/10/17 11:37 03/10/17 12:34 Bedside Glucose 178 mg/dl 168 mg/dl 171 mg/dl 208 mg/dl Test 03/10/17 13:35 03/10/17 14:32 03/10/17 15:36 03/10/17 15:46 Bedside Glucose 176 mg/dl 181 mg/dl 133 mg/dl 150 mg/dl Test 03/10/17 16:06 03/10/17 16:31 Bedside Glucose 125 mg/dl 136 mg/dl Assessment and Plan 22-year-old male with history of IV drug abuse, hepatitis-C, as well as prior MRSA infection now presents with left chest wall and upper abdominal wall abscess as well as small intrapelvic abscess. Patient now s/p surgical drainage with cultures growing MRSA. Patient will be continued on daptomycin for now. Will need repeat CT scan in the future to ensure improvement in his intrapelvic collection. patient will also need to transition to oral antibiotics prior to discharge given history of IVDU. Will follow.
[2017-03-10 19:20] VITALS: BP 122/70; PULSE 83; TEMP 36.8; O2SAT 98
[2017-03-10] MEDS: ZOLPIDEM TARTRATE 5 MG TAB PO PRN (21:27)
[2017-03-10] MEDS: TRAMADOL HCL 50 MG TAB PO PRN (21:27)
[2017-03-10 23:18] VITALS: BP 118/72; PULSE 82; TEMP 37.1; O2SAT 96
[2017-03-11] MEDS: INSULIN ASPART 100 UNITS/ML 3 ML PEN SC SCH ×6 (00:14→21:16)
[2017-03-11 03:20] VITALS: BP 125/70; PULSE 67; TEMP 36.7; O2SAT 98
[2017-03-11 06:44] LABS: BUN/CREATININE RATIO 11.6 (10-20); CALCIUM 9.9 mg/dl (8.5-10.1); CREATININE 4.4 mg/dl (0.60-1.40); POTASSIUM 4.4 mmol/L (3.5-5.1)
[2017-03-11] MEDS: TRAMADOL HCL 50 MG TAB PO PRN (08:13)
[2017-03-11] MEDS: FAMOTIDINE 20 MG TAB PO SCH ×2 (08:14→21:12)
[2017-03-11] MEDS: FUROSEMIDE INJ 40 MG in SYRINGE 0 ML IV SCH (08:14)
[2017-03-11] MEDS: CHOLECALCIFEROL 1000 INTER.UNIT TAB PO SCH (08:15)
[2017-03-11] MEDS: ACETAMINOPHEN 500 MG TAB PO SCH ×2 (08:15→21:13)
[2017-03-11] MEDS: INSULIN GLARGINE SOLOSTAR 100 UNITS/ML 3 ML PEN SC SCH ×2 (08:21→21:17)
[2017-03-11 08:27] VITALS: BP 123/77; PULSE 78; TEMP 36.9; O2SAT 99
[2017-03-11 08:52] LABS: MAGNESIUM 1.9 mg/dl (1.8-2.4)
--- NOTE | 2017-03-11 09:37 | Nephrology Progress Note ---
Nephrology Progress Note Date of Service Mar 11, 2017. Chief Complaint Follow up evaluation of TAYLOR Subjective Mr. Tijerina was seen & examined in the ICU this morning. His mother was present at bedside. Mr. Tijerina reported good urine output. He voiced no new medical concerns. He would like to get OOB and begin ambulating in the hallway. Review of Systems Constitutional: No fever Cardiovascular: No chest pain Respiratory: No dyspnea at rest Abdomen: No pain, No nausea, No vomiting Genitourinary - Male: No dysuria, No gross hematuria Extremities: No leg edema A complete review of systems was performed. Pertinent positives are noted above. All other systems are negative. Vital Signs Last 8 Hrs Date Time Temp Pulse Resp B/P (MAP) Pulse Ox O2 Delivery O2 Flow Rate FiO2 03/11/17 08:27 36.9 78 16 123/77 (92) 99 Room Air 03/11/17 04:00 Room Air 03/11/17 03:20 36.7 67 16 125/70 (88) 98 Room Air Last Recorded Weight Weight (Kilograms): 90.400 Physical Exam General Appearance: no apparent distress Head: normocephalic, atraumatic Eyes: PERRL Neck: no adenopathy Respiratory/Chest: lungs clear, no respiratory distress Cardiovascular: regular rate, rhythm Abdomen/GI: normal bowel sounds, non tender, soft, + pertinent finding (LUQ wound vac remains in place) Extremities/Musculoskelatal: no calf tenderness, no pedal edema Neurologic/Psych: alert, oriented x 3 Family History Diabetes mellitus Social History Smoking Status: Never smoker Smokeless Tobacco Use: No Alcohol Use: occasionally Drug Use: cocaine, heroin, marijuana, other Marital Status: single Housing Status: lives with family Occupation: unemployed, student Laboratory Results Past 24 Hours 03/11/17 05:41 Test 03/10/17 10:32 03/10/17 11:37 03/10/17 12:34 03/10/17 13:35 Bedside Glucose 168 mg/dl (70-99) 171 mg/dl (70-99) 208 mg/dl (70-99) 176 mg/dl (70-99) Test 03/10/17 14:32 03/10/17 15:36 03/10/17 15:46 03/10/17 16:06 Bedside Glucose 181 mg/dl (70-99) 133 mg/dl (70-99) 150 mg/dl (70-99) 125 mg/dl (70-99) Test 03/10/17 16:31 03/10/17 20:05 03/11/17 00:06 03/11/17 04:02 Bedside Glucose 136 mg/dl (70-99) 176 mg/dl (70-99) 230 mg/dl (70-99) 133 mg/dl (70-99) Test 03/11/17 05:41 03/11/17 06:25 Anion Gap 9.0 mmol/L (3-11) Est Creatinine Clear Calc Drug Dose 30.9 ml/min Estimated GFR () 20.7 Estimated GFR (Non- 17.9 BUN/Creatinine Ratio 11.6 (10-20) Calcium Level 9.9 mg/dl (8.5-10.1) Phosphorus Level 6.0 mg/dl (2.5-4.9) Magnesium Level 1.9 mg/dl (1.8-2.4) Bedside Glucose 133 mg/dl (70-99) Allergies Coded Allergies: Azithromycin (Verified Allergy, Unknown, ., 02/27/17) Cephalosporins (Verified Allergy, Unknown, unknown, 02/27/17) mother Sulfa Antibiotics (Verified Allergy, Unknown, ., 02/27/17) Medications Current Inpatient Medications Medications (Trade) Dose Ordered Sig/Myron Route Start Time Stop Time Status Last Admin Dose Admin Zolpidem Tartrate (Ambien Tab) 5 mg HSZ PRN PO 02/27/17 12:00 03/29/17 11:59 03/10/17 21:27 5 MG Cholecalciferol (Vitamin D Tab) 1,000 inter.unit DAILY PO 02/28/17 09:00 03/30/17 08:59 03/11/17 08:15 1,000 INTER.UNIT Ondansetron HCl (Zofran Inj) 4 mg Q6H PRN IV 02/27/17 12:00 03/29/17 11:59 03/03/17 17:45 4 MG Glucose (Glucose 40% Gel) UD PRN PO 02/27/17 12:00 03/29/17 11:59 Glucose (Glucose Chew Tab) 1 tabs UD PRN PO 02/27/17 12:00 03/29/17 11:59 Dextrose (Dextrose 50% 50ML Syringe) 50 ml UD PRN IV 02/27/17 12:00 03/29/17 11:59 Glucagon (Glucagon Inj) 1 mg UD PRN SQ 02/27/17 12:00 03/29/17 11:59 Famotidine (Pepcid Tab) 20 mg Q12 PO 02/28/17 21:00 03/30/17 20:59 03/11/17 08:14 20 MG Morphine Sulfate (MoRPHine SULFATE INJ) 4 mg Q3H PRN IV 03/01/17 11:45 03/15/17 11:44 03/10/17 18:16 4 MG Sodium Chloride ([place] Nasal [place]) 1 sprays PRN PRN NA 03/02/17 14:15 04/01/17 14:14 Tramadol HCl (Ultram Tab) 100 mg Q6H PRN PO 03/02/17 22:00 03/29/17 11:59 03/11/17 08:13 100 MG Acetaminophen (Tylenol Tab) 1,000 mg BID PO 03/02/17 21:00 04/01/17 20:59 03/11/17 08:15 1,000 MG Acetaminophen (Tylenol Tab) 1,000 mg Q12 PRN PO 03/02/17 17:15 04/01/17 17:14 Daptomycin 400 mg/ Sodium Chloride 58 ml @ 120 mls/hr Q48H IV 03/04/17 16:00 03/14/17 15:59 03/10/17 16:14 120 MLS/HR Miscellaneous Information (Consult Glycemic Management Pharmacy) 1 ea UD PRN N/A 03/06/17 17:47 04/05/17 17:46 Insulin Glargine (Lantus Solostar Pen) BID SC 03/10/17 10:00 04/09/17 09:59 03/11/17 08:21 20 UNITS Insulin Aspart (novoLOG ASPART) SLIDING SCALE ACHS SC 03/10/17 16:15 04/09/17 16:14 03/11/17 08:18 8 UNITS Insulin Aspart (novoLOG ASPART) SLIDING SCALE 0000,0400 SC 03/11/17 00:00 04/10/17 00:00 03/11/17 00:14 4 UNITS Impression (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 Tijerina has IDDM, h/o IVDA and chronic hepatitis C. He was admitted with a left chest / upper abdominal wall abscess as well as a small intrapelvic abscess. Chest wall abscess I&D performed on 02/28/17. Cultures from drainage growing MRSA. Blood cultures negative. TTE did not show vegetation or evidence of valvular heart disease. CT of the pelvis 03/04/17 shows a stable 2.4 cm right obturator internus intramuscular collection. Vancomycin switched to daptomycin due to renal dysfunction. Renal US normal. Urine analysis is bland with acellular microscopy. Clinical presentation is most consistent with ATN. ATN can be attributed to infection, CT with contrast as well as medications including Toradol. Baseline creatinine has been 0.6 Recommendations TAYLOR: -- Patient is diuresing well. He appears clinically euvolemic. Will stop Furosemide -- Patient is now in the recovery phase of ATN. Creatinine has dropped to 4.4 w / EGFR 30 cc/min. Recommend continued inpatient monitoring until creatinine ~ 2.0 -- Monitor PRP, document I&O's -- Avoid NSAIDs HYPERKALEMIA: -- Resolved. Low potassium diet has been ordered. ENDO: -- Glucose control appropriate ID: -- Monitor CPK weekly on Daptomycin -- LFT's stable. ID notes reviewed. They will consider treatment of Hepatitis C once patient is free of IVDA OTHER: -- Recommend transfer to medical floor and advance activity
--- NOTE | 2017-03-11 11:47 | Surgery Progress Note ---
Surgery Progress Note Date of Service Mar 11, 2017. Subjective 22 year old male with IDDM and history of IVDA status post I&D left chest wall/ abdominal wall abscess. He is continuing with wound vac therapy, and per report the wound is healing well. No fevers. Cultures confirmed MRSA. TAYLOR improving. Objective Vital Signs: Date Time Temp Pulse Resp B/P (MAP) Pulse Ox O2 Delivery O2 Flow Rate FiO2 03/11/17 08:27 36.9 78 16 123/77 (92) 99 Room Air 03/11/17 08:00 Room Air 03/11/17 04:00 Room Air 03/11/17 03:20 36.7 67 16 125/70 (88) 98 Room Air 03/10/17 23:59 Room Air 03/10/17 23:18 37.1 82 16 118/72 (87) 96 Room Air 03/10/17 20:00 Room Air 03/10/17 19:20 36.8 83 18 122/70 (87) 98 Room Air 03/10/17 16:00 Room Air 03/10/17 15:50 37.1 77 16 109/63 (78) 97 03/10/17 15:12 Room Air 03/10/17 12:00 Room Air 03/10/17 11:39 37.0 81 16 124/70 (88) 96 Room Air General Appearance: WD/WN, no apparent distress Head: normocephalic, atraumatic Neck: supple, no adenopathy, no JVD Respiratory/Chest: chest non-tender, lungs clear Cardiovascular: regular rate, rhythm, no edema, no gallop, no murmur Abdomen: normal bowel sounds, non tender, non distended Incision(s): findings (left lower chest wound with vac in place, no cellulitis , good seal) Laboratory Results: Results Past 24 Hours Test 03/10/17 11:37 03/10/17 12:34 03/10/17 13:35 03/10/17 14:32 Range/Units Bedside Glucose 171 208 176 181 70-99 mg/dl Test 03/10/17 15:36 03/10/17 15:46 03/10/17 16:06 03/10/17 16:31 Range/Units Bedside Glucose 133 150 125 136 70-99 mg/dl Test 03/10/17 20:05 03/11/17 00:06 03/11/17 04:02 03/11/17 05:41 Range/Units Bedside Glucose 176 230 133 70-99 mg/dl Sodium Level 139 136-145 mmol/L Potassium Level 4.4 3.5-5.1 mmol/L Chloride Level 102 98-107 mmol/L Carbon Dioxide Level 28 21-32 mmol/L Anion Gap 9.0 3-11 mmol/L Blood Urea Nitrogen 51 7-18 mg/dl Creatinine 4.40 0.60-1.40 mg/dl Est Creatinine Clear Calc Drug Dose 30.9 ml/min Estimated GFR () 20.7 Estimated GFR (Non- 17.9 BUN/Creatinine Ratio 11.6 10-20 Random Glucose 116 70-99 mg/dl Calcium Level 9.9 8.5-10.1 mg/dl Phosphorus Level 6.0 2.5-4.9 mg/dl Magnesium Level 1.9 1.8-2.4 mg/dl Test 03/11/17 06:25 Range/Units Bedside Glucose 133 70-99 mg/dl Assessment & Plan 22-year-old male s/p incision and drainage of left lower chest/abdominal wall infra-muscular abscess, MRSA positive. Overall he is improved from an infectious standpoint and he now has a wound VAC in place with wound care nurse following. TYALOR improving. Recommended continue on antibiotics for pelvic fluid collection. General surgery will follow peripherally as wound care will manage his wound VAC for now. I would like to see him in the clinic 1-2 weeks after his discharge. Lindsay Virk, DO
[2017-03-11 12:26] VITALS: BP 132/74; PULSE 73; TEMP 37; O2SAT 97
[2017-03-11 12:55] VITALS: BP 132/74; PULSE 73; TEMP 37; O2SAT 97
[2017-03-11 13:45] VITALS: BP 130/77; PULSE 73; TEMP 36.8; O2SAT 96
[2017-03-11] MEDS: ZOLPIDEM TARTRATE 5 MG TAB PO PRN (22:12)
--- NOTE | 2017-03-11 22:41 | Progress Note ---
Subjective Date of Service: Mar 11, 2017. Subjective Pt evaluation today including: conversation w/ patient, physical exam, chart review, lab review Pain: denies any chest/abd wall pain; scant right groin pain intermittently PO Intake: normal Voiding: no voiding problems tele stable overnight off insulin drip offers no complaints Problem List Medical Problems: (1) Abscess of left forearm Status: Acute (2) Chest wall hematoma Status: Acute (3) Chronic Viral Hepatitis C Status: Chronic (4) Endocarditis Status: Acute (5) Hyperglycemia due to type 1 diabetes mellitus Status: Acute (6) IV drug abuse Status: Chronic (7) Left arm cellulitis Status: Acute (8) Rib pain on left side Status: Acute (9) Type 1 diabetes Status: Chronic Review of Systems Constitutional: No fever Respiratory: No shortness of breath Cardiac: No chest pain Abdomen: No pain Objective Vital Signs Date Time Temp Pulse Resp B/P (MAP) Pulse Ox O2 Delivery O2 Flow Rate FiO2 03/11/17 16:30 Room Air 03/11/17 13:45 36.8 73 18 130/77 (94) 96 Room Air 03/11/17 12:55 37.0 73 16 97 2.0 03/11/17 12:26 37.0 73 16 132/74 (93) 97 Room Air 03/11/17 12:00 Room Air 03/11/17 08:27 36.9 78 16 123/77 (92) 99 Room Air 03/11/17 08:00 Room Air 03/11/17 04:00 Room Air 03/11/17 03:20 36.7 67 16 125/70 (88) 98 Room Air 03/10/17 23:59 Room Air 03/10/17 23:18 37.1 82 16 118/72 (87) 96 Room Air Physical Exam General Appearance: no apparent distress ENT: pharynx normal Neck: no JVD Respiratory/Chest: lungs clear, no respiratory distress, no accessory muscle use Cardiovascular: regular rate, rhythm, no gallop, no murmur Abdomen: normal bowel sounds, non tender, soft, no organomegaly Extremities: no pedal edema Neurologic/Psychiatric: alert, oriented x 3 Skin: + pertinent finding (wound vac in place, left upper quadrant - no change) Laboratory Results Last 24 Hours Test 03/11/17 00:06 03/11/17 04:02 03/11/17 05:41 03/11/17 06:25 Bedside Glucose 230 mg/dl 133 mg/dl 133 mg/dl Sodium Level 139 mmol/L Potassium Level 4.4 mmol/L Chloride Level 102 mmol/L Carbon Dioxide Level 28 mmol/L Anion Gap 9.0 mmol/L Blood Urea Nitrogen 51 mg/dl Creatinine 4.40 mg/dl Est Creatinine Clear Calc Drug Dose 30.9 ml/min Estimated GFR () 20.7 Estimated GFR (Non- 17.9 BUN/Creatinine Ratio 11.6 Random Glucose 116 mg/dl Calcium Level 9.9 mg/dl Phosphorus Level 6.0 mg/dl Magnesium Level 1.9 mg/dl Test 03/11/17 11:07 03/11/17 16:52 03/11/17 20:11 Bedside Glucose 187 mg/dl 73 mg/dl 276 mg/dl Assessment and Plan 22yo male with: 1. sepsis 2nd to MRSA abscess on abdominal wall s/p I&D now with wound vac - cont daily daptomycin and wound vac. Clindamycin orally at d/c. 2. sepsis-associated ATN (suspected) vs contrast nephropathy - improving; nonoliguric. BMP in am. Lasix d/c by nephrology today. 3. suspected depression - follow carefully for need for antidepressants. 4. T1DM, uncontrolled - s/p insulin infusion, now back on basal/bolus SC insulin; pharmacy managing. 5. DVT proph - add back heparin BID. 6. chronic hepatitis C - most recent LFTs were stable; HIV test this admission negative 7. IV drug abuse - not candidate for PICC line at d/c. d/c tele - move to med/surg progressing can d/c home once creatinine is near level of 2 Continued [facility] stay due to: multiple IV medications needed Discharge planning: home with home health
[2017-03-12] VITALS: O2SAT 96
[2017-03-12 00:25] VITALS: BP 112/67; PULSE 81; TEMP 37; O2SAT 95
[2017-03-12] MEDS: INSULIN ASPART 100 UNITS/ML 3 ML PEN SC SCH ×5 (02:22→21:07)
[2017-03-12 07:31] VITALS: BP 112/75; PULSE 78; TEMP 36.6; O2SAT 98
[2017-03-12] MEDS: FAMOTIDINE 20 MG TAB PO SCH ×2 (07:59→21:02)
[2017-03-12] MEDS: CHOLECALCIFEROL 1000 INTER.UNIT TAB PO SCH (07:59)
[2017-03-12 08:00] VITALS: O2SAT 98
[2017-03-12] MEDS: ACETAMINOPHEN 500 MG TAB PO SCH ×2 (08:01→21:02)
[2017-03-12] MEDS: INSULIN GLARGINE SOLOSTAR 100 UNITS/ML 3 ML PEN SC SCH ×2 (08:06→21:06)
[2017-03-12] MEDS: TRAMADOL HCL 50 MG TAB PO PRN (08:07)
[2017-03-12] MEDS: HEPARIN SOD 5000 UNIT/0.5 ML CARP SQ SCH ×2 (08:07→21:00)
[2017-03-12 08:17] LABS: BUN/CREATININE RATIO 13.8 (10-20); CALCIUM 10.3 mg/dl (8.5-10.1); CREATININE 3.5 mg/dl (0.60-1.40)
--- NOTE | 2017-03-12 11:03 | Nephrology Progress Note ---
Nephrology Progress Note Date of Service Mar 12, 2017. Chief Complaint Follow-up for acute kidney injury. [place] Was seen and examined in his room this morning. He has been otherwise doing well, denies any symptom. Blood pressure acceptable. Denies any overnight episode of fever or chills. Renal function continues to improve, creatinine 3.5 this morning. Has remain non-oliguric. Review of Systems A complete review of systems was performed. Pertinent positives are noted above. All other systems are negative. Vital Signs Last 8 Hrs Date Time Temp Pulse Resp B/P (MAP) Pulse Ox O2 Delivery O2 Flow Rate FiO2 03/12/17 08:00 98 Room Air 03/12/17 07:31 36.6 78 16 112/75 (87) 98 Room Air Last Recorded Weight Weight (Kilograms): 90.400 Family History Diabetes mellitus Social History Smoking Status: Never smoker Smokeless Tobacco Use: No Alcohol Use: occasionally Drug Use: cocaine, heroin, marijuana, other Marital Status: single Housing Status: lives with family Occupation: unemployed, student Laboratory Results Past 24 Hours 03/12/17 07:10 Test 03/11/17 11:07 03/11/17 16:52 03/11/17 20:11 03/12/17 02:10 Bedside Glucose 187 mg/dl (70-99) 73 mg/dl (70-99) 276 mg/dl (70-99) 253 mg/dl (70-99) Test 03/12/17 07:10 03/12/17 07:24 Anion Gap 9.0 mmol/L (3-11) Est Creatinine Clear Calc Drug Dose 38.8 ml/min Estimated GFR () 27.3 Estimated GFR (Non- 23.6 BUN/Creatinine Ratio 13.8 (10-20) Calcium Level 10.3 mg/dl (8.5-10.1) Bedside Glucose 133 mg/dl (70-99) Allergies Coded Allergies: Azithromycin (Verified Allergy, Unknown, ., 02/27/17) Cephalosporins (Verified Allergy, Unknown, unknown, 02/27/17) mother Sulfa Antibiotics (Verified Allergy, Unknown, ., 02/27/17) Medications Current Inpatient Medications Medications (Trade) Dose Ordered Sig/Myron Route Start Time Stop Time Status Last Admin Dose Admin Zolpidem Tartrate (Ambien Tab) 5 mg HSZ PRN PO 02/27/17 12:00 03/29/17 11:59 03/11/17 22:12 5 MG Cholecalciferol (Vitamin D Tab) 1,000 inter.unit DAILY PO 02/28/17 09:00 03/30/17 08:59 03/12/17 07:59 1,000 INTER.UNIT Ondansetron HCl (Zofran Inj) 4 mg Q6H PRN IV 02/27/17 12:00 03/29/17 11:59 03/03/17 17:45 4 MG Glucose (Glucose 40% Gel) UD PRN PO 02/27/17 12:00 03/29/17 11:59 Glucose (Glucose Chew Tab) 1 tabs UD PRN PO 02/27/17 12:00 03/29/17 11:59 Dextrose (Dextrose 50% 50ML Syringe) 50 ml UD PRN IV 02/27/17 12:00 03/29/17 11:59 Glucagon (Glucagon Inj) 1 mg UD PRN SQ 02/27/17 12:00 03/29/17 11:59 Famotidine (Pepcid Tab) 20 mg Q12 PO 02/28/17 21:00 03/30/17 20:59 03/12/17 07:59 20 MG Sodium Chloride ([place] Nasal [place]) 1 sprays PRN PRN NA 03/02/17 14:15 04/01/17 14:14 Tramadol HCl (Ultram Tab) 100 mg Q6H PRN PO 03/02/17 22:00 03/29/17 11:59 03/12/17 08:07 100 MG Acetaminophen (Tylenol Tab) 1,000 mg BID PO 03/02/17 21:00 04/01/17 20:59 03/12/17 08:01 1,000 MG Acetaminophen (Tylenol Tab) 1,000 mg Q12 PRN PO 03/02/17 17:15 04/01/17 17:14 Daptomycin 400 mg/ Sodium Chloride 58 ml @ 120 mls/hr Q48H IV 03/04/17 16:00 03/14/17 15:59 03/10/17 16:14 120 MLS/HR Miscellaneous Information (Consult Glycemic Management Pharmacy) 1 ea UD PRN N/A 03/06/17 17:47 04/05/17 17:46 Insulin Glargine (Lantus Solostar Pen) BID SC 03/10/17 10:00 04/09/17 09:59 03/12/17 08:06 20 UNITS Insulin Aspart (novoLOG ASPART) SLIDING SCALE ACHS SC 03/10/17 16:15 04/09/17 16:14 03/12/17 08:07 8 UNITS Insulin Aspart (novoLOG ASPART) SLIDING SCALE 0200 SC 03/12/17 02:00 04/11/17 01:59 03/12/17 02:22 5 UNITS Heparin Sodium (Porcine) (Heparin Sq 5000 Unit/0.5ml) 5,000 unit Q12H SQ 03/12/17 09:00 04/11/17 08:59 Impression (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 Tijerina has IDDM, h/o IVDA and chronic hepatitis C. He was admitted with a left chest / upper abdominal wall abscess as well as a small intrapelvic abscess. Chest wall abscess I&D performed on 02/28/17. Cultures from drainage growing MRSA. Blood cultures negative. TTE did not show vegetation or evidence of valvular heart disease. CT of the pelvis 03/04/17 shows a stable 2.4 cm right obturator internus intramuscular collection. Vancomycin switched to daptomycin due to renal dysfunction. Renal US normal. Urine analysis is bland with acellular microscopy. Clinical presentation is most consistent with ATN. ATN can be attributed to infection, CT with contrast as well as medications including Toradol. Baseline creatinine has been 0.6 Recommendations -- recovering from recent acute kidney injury most likely secondary to dense ATN , creatinine 3.5 this morning. Blood pressure well control, non-oliguric. -- hypercalcemia noted, not on any medication to attribute, will repeat in a.m. and check PTH -- continue to monitor renal function daily while inpatient however patient would be okay to be discharged and expect renal function to continue to improve , however it seems like patient will be in the hospital for at least next few days to complete the IV antibiotic -- Avoid NSAIDs, keep well hydrated --will continue to follow while inpatient, please schedule for outpatient Nephrology follow-up with Dr. Donis in 1-2 weeks after discharge, scheduled for weekly renal panel until renal function is back to normal with complete recovery of acute kidney injury
[2017-03-12 14:58] VITALS: BP 117/75; PULSE 80; O2SAT 97
[2017-03-12] MEDS: DAPTOmycin IV 400 MG in SODIUM CHLORIDE 0.9% 50ML 50 ML IV SCH (16:15)
--- NOTE | 2017-03-12 16:43 | PROGRESS NOTE ---
DATE: 03/12/2017 DATE: 03/12/2017 HISTORY OF PRESENT ILLNESS: Mr. Tijerina is a 22-year-old white male, longstanding type 1 diabetic with a history of IV drug abuse, left arm cellulitis, chronic viral hepatitis C, history of endocarditis, and a left upper quadrant abscess which grew out Staph aureus. He is currently receiving IV daptomycin q. 48 hours and he has a wound VAC in place. His discomfort is well controlled and generally responds with Tylenol. The patient offers no other complaints. He denies any fevers, chills, headache, stiff neck. He denies any nausea or vomiting. No chest pain or shortness of breath. As a result of his illness, the patient has sustained an acute kidney injury most likely secondary to ATN, but his creatinine is improving. The patient offers no other complaints or concerns. MEDICATIONS: 1. Heparin 5000 units subcutaneous injection q. 12 hours. 2. NovoLog sliding scale insulin. 3. Lantus insulin as directed. 4. Daptomycin 400 mg IV q. 48 hours. 5. Tramadol 100 mg p.o. q. 6 hours p.r.n. for moderate pain. 6. Tylenol 1000 mg b.i.d. and q. 12 hours p.r.n. for pain or fever. 7. [place] nasal spray. 8. Pepcid 20 mg p.o. b.i.d. 9. Vitamin D 1000 units daily. 10. Ambien 5 mg at bedtime p.r.n. for sleep. 11. Zofran 4 mg IV q. 6 hours p.r.n. for nausea. ALLERGIES: 1. AZITHROMYCIN. 2. CEPHALOSPORINS. 3. SULFA ANTIBIOTICS. PHYSICAL EXAMINATION: VITAL SIGNS: Temperature is 36.6 degrees Celsius, pulse is 74 and regular, respiratory rate 14 and unlabored. Blood pressure is 117/75 and SPO2 is 97% on room air. GENERAL: The patient is in no acute distress. HEAD, EYES, EARS, NOSE, AND THROAT: Head is atraumatic, normocephalic. EOMs intact. Sclerae are anicteric. Facies symmetric. Mucous membranes moist. NECK: Without JVD. CHEST AND LUNGS: Clear to auscultation throughout all lung khanna, no wheezes, rales or rhonchi. CARDIOVASCULAR: S1 and S2 are regular without murmur, gallop or rub. EXTREMITIES: Without clubbing, cyanosis or edema. Intact radial and posterior tibial pulses bilaterally. NEUROLOGIC EXAMINATION: The patient is awake, alert and oriented. Answers questions appropriately. No focal neurologic abnormalities. LABORATORY DATA: White blood cell count is 9.80. Hemoglobin 10.0 g/dl, hematocrit 31.9%. Platelet count is 601,000. Sodium is 137 mmol/L, potassium 4.0 mmol/L. BUN 48 mg/dL. Creatinine 3.50 mg/dL. Random glucose 162 mg/dL. Abscess culture shows a methicillin-resistant Staph aureus. Blood cultures no growth x3. ASSESSMENT: 1. Left upper quadrant abscess status post incision and drainage, wound VAC infected with methicillin-resistant staphylococcus aureus. 2. Poorly controlled type 1 diabetic. 3. Acute kidney injury secondary to acute tubular necrosis. 4. Chronic hepatitis C. 5. History of intravenous drug abuse. 6. Left arm cellulitis and left forearm abscess. PLAN: 1. The patient continues to improve overall. 2. Wound VAC in place. 3. Continue IV daptomycin. 4. He will be converted to oral clindamycin at discharge. 5. Continue monitoring renal function. 6. Continue Lantus and Sliding scale NovoLog insulin. 7. Nephrology and infectious disease input greatly appreciated. 8. We will continue to follow closely. Attending Attestation: Pt seen/examined, chart reviewed, care plan d/w ALLYN Gore. I agree w/ the gonzales components of his documentation. No complaints today. Feels good. Eating well. Pain controlled. VSS, no fever gen - nad skin - wound vac in place, LUQ of abdominal wall heart - RRR lungs - CTA b/l A/P: MRSA abscess - LUQ - s/p I & D - continue daptomycin IV. ATN - Creatinine slowly improving; repeat BMP am. Jon Juarez MD MTDD
[2017-03-13] VITALS: BP 111/69; PULSE 80; TEMP 37; O2SAT 97; O2SAT 98
[2017-03-13] MEDS: INSULIN ASPART 100 UNITS/ML 3 ML PEN SC SCH ×5 (02:00→20:27)
[2017-03-13 07:48] LABS: HEMATOCRIT 34.2 % (42-52); MEAN CELL VOLUME 86.6 fL (80-100); MEAN CORPUSCULAR HEMOGLOBIN 28.9 pg (25-34); MEAN CORPUSCULAR HGB CONC 33.3 g/dl (32-36); MEAN PLATELET VOLUME 8.1 fL (7.4-10.4); PLATELET COUNT 586 K/uL (130-400); RED BLOOD COUNT 3.95 M/uL (4.7-6.1); WHITE BLOOD COUNT 9.74 K/uL (4.8-10.8)
[2017-03-13] MEDS: CHOLECALCIFEROL 1000 INTER.UNIT TAB PO SCH (07:50)
[2017-03-13] MEDS: FAMOTIDINE 20 MG TAB PO SCH ×2 (07:50→20:29)
[2017-03-13] MEDS: ACETAMINOPHEN 500 MG TAB PO SCH ×2 (07:51→20:29)
[2017-03-13] MEDS: HEPARIN SOD 5000 UNIT/0.5 ML CARP SQ SCH ×2 (07:54→20:32)
[2017-03-13] MEDS: INSULIN GLARGINE SOLOSTAR 100 UNITS/ML 3 ML PEN SC SCH ×2 (07:58→20:28)
[2017-03-13 08:00] VITALS: O2SAT 98
[2017-03-13 08:14] VITALS: BP 114/78; PULSE 73; TEMP 37.1; O2SAT 98
[2017-03-13 08:20] LABS: BUN/CREATININE RATIO 15.4 (10-20); CALCIUM 10.2 mg/dl (8.5-10.1); CREATININE 2.7 mg/dl (0.60-1.40); POTASSIUM 4.2 mmol/L (3.5-5.1)
[2017-03-13] MEDS: LACTOBACILLUS ACIDOPHILUS (FLORANEX) TAB PO SCH ×2 (11:47→18:16)
[2017-03-13] MEDS: CLINDAMYCIN HCL 150 MG CAP PO SCH ×3 (11:48→20:25)
--- NOTE | 2017-03-13 12:05 | Nephrology Progress Note ---
Nephrology Progress Note Date of Service Mar 13, 2017. Chief Complaint Follow-up for acute kidney injury. Anna Smith Was seen and examined in his room this morning. He has been otherwise doing well, denies any symptom. Blood pressure acceptable. Denies any overnight episode of fever or chills. Renal function continues to improve, creatinine 2.7 this morning. Has remain non-oliguric. Review of Systems A complete review of systems was performed. Pertinent positives are noted above. All other systems are negative. Vital Signs Last 8 Hrs Date Time Temp Pulse Resp B/P (MAP) Pulse Ox O2 Delivery O2 Flow Rate FiO2 03/13/17 08:14 37.1 73 16 114/78 (90) 98 Room Air 03/13/17 08:00 98 Room Air Last Recorded Weight Weight (Kilograms): 90.400 Physical Exam GENERAL: young male, , AAA x 3, pleasant, healthy-appearing, not in any distress. NECK: Supple, no JVD. RESPIRATORY: Normal breathing efforts, no accessory muscle use, clear to auscultation bilaterally, no wheezes or rales. CARDIOVASCULAR: S1, S2 normal, rate rhythm regular. EXTREMITY: No lower extremity edema NEURO: speech fluent. PSYCHIATRY: Normal mood and judgment Family History Diabetes mellitus Social History Smoking Status: Never smoker Smokeless Tobacco Use: No Alcohol Use: occasionally Drug Use: cocaine, heroin, marijuana, other Marital Status: single Housing Status: lives with family Occupation: unemployed, student Laboratory Results Past 24 Hours 03/13/17 07:36 03/13/17 07:36 Test 03/12/17 11:17 03/12/17 16:27 03/12/17 20:13 03/13/17 01:52 Bedside Glucose 162 mg/dl (70-99) 105 mg/dl (70-99) 255 mg/dl (70-99) 208 mg/dl (70-99) Test 03/13/17 07:36 03/13/17 07:54 Red Blood Count 3.95 M/uL (4.7-6.1) Mean Corpuscular Volume 86.6 fL (80-100) Mean Corpuscular Hemoglobin 28.9 pg (25-34) Mean Corpuscular Hemoglobin Concent 33.3 g/dl (32-36) RDW Standard Deviation 41.3 fL (36.4-46.3) RDW Coefficient of Variation 12.8 % (11.5-14.5) Mean Platelet Volume 8.1 fL (7.4-10.4) Anion Gap 9.0 mmol/L (3-11) Est Creatinine Clear Calc Drug Dose 50.3 ml/min Estimated GFR () 37.4 Estimated GFR (Non- 32.2 BUN/Creatinine Ratio 15.4 (10-20) Calcium Level 10.2 mg/dl (8.5-10.1) Parathyroid Hormone (Intact) 40.0 pg/mL (11.1-79.5) Bedside Glucose 240 mg/dl (70-99) Allergies Coded Allergies: Azithromycin (Verified Allergy, Unknown, ., 02/27/17) Cephalosporins (Verified Allergy, Unknown, unknown, 02/27/17) mother Sulfa Antibiotics (Verified Allergy, Unknown, ., 02/27/17) Medications Current Inpatient Medications Medications (Trade) Dose Ordered Sig/Myron Route Start Time Stop Time Status Last Admin Dose Admin Zolpidem Tartrate (Ambien Tab) 5 mg HSZ PRN PO 02/27/17 12:00 03/29/17 11:59 03/11/17 22:12 5 MG Cholecalciferol (Vitamin D Tab) 1,000 inter.unit DAILY PO 02/28/17 09:00 03/30/17 08:59 03/13/17 07:50 1,000 INTER.UNIT Ondansetron HCl (Zofran Inj) 4 mg Q6H PRN IV 02/27/17 12:00 03/29/17 11:59 03/03/17 17:45 4 MG Glucose (Glucose 40% Gel) UD PRN PO 02/27/17 12:00 03/29/17 11:59 Glucose (Glucose Chew Tab) 1 tabs UD PRN PO 02/27/17 12:00 03/29/17 11:59 Dextrose (Dextrose 50% 50ML Syringe) 50 ml UD PRN IV 02/27/17 12:00 03/29/17 11:59 Glucagon (Glucagon Inj) 1 mg UD PRN SQ 02/27/17 12:00 03/29/17 11:59 Famotidine (Pepcid Tab) 20 mg Q12 PO 02/28/17 21:00 03/30/17 20:59 03/13/17 07:50 20 MG Sodium Chloride ([place] Nasal [place]) 1 sprays PRN PRN NA 03/02/17 14:15 04/01/17 14:14 Tramadol HCl (Ultram Tab) 100 mg Q6H PRN PO 03/02/17 22:00 03/29/17 11:59 03/12/17 08:07 100 MG Acetaminophen (Tylenol Tab) 1,000 mg BID PO 03/02/17 21:00 04/01/17 20:59 03/13/17 07:51 1,000 MG Acetaminophen (Tylenol Tab) 1,000 mg Q12 PRN PO 03/02/17 17:15 04/01/17 17:14 Miscellaneous Information (Consult Glycemic Management Pharmacy) 1 ea UD PRN N/A 03/06/17 17:47 04/05/17 17:46 Insulin Glargine (Lantus Solostar Pen) BID SC 03/10/17 10:00 04/09/17 09:59 03/13/17 07:58 20 UNITS Insulin Aspart (novoLOG ASPART) SLIDING SCALE ACHS SC 03/10/17 16:15 04/09/17 16:14 03/13/17 08:20 13 UNITS Insulin Aspart (novoLOG ASPART) SLIDING SCALE 0200 SC 03/12/17 02:00 04/11/17 01:59 03/13/17 02:00 3 UNITS Heparin Sodium (Porcine) (Heparin Sq 5000 Unit/0.5ml) 5,000 unit Q12H SQ 03/12/17 09:00 04/11/17 08:59 Clindamycin HCl (Cleocin Cap) 300 mg TID PO 03/13/17 09:45 03/23/17 09:44 UNV Lactobacillus Acidophilus (Floranex Tab) 4 tab TIDM PO 03/13/17 12:00 04/12/17 11:59 UNV Impression (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 Tijerina has IDDM, h/o IVDA and chronic hepatitis C. He was admitted with a left chest / upper abdominal wall abscess as well as a small intrapelvic abscess. Chest wall abscess I&D performed on 02/28/17. Cultures from drainage growing MRSA. Blood cultures negative. TTE did not show vegetation or evidence of valvular heart disease. CT of the pelvis 03/04/17 shows a stable 2.4 cm right obturator internus intramuscular collection. Vancomycin switched to daptomycin due to renal dysfunction. Renal US normal. Urine analysis is bland with acellular microscopy. Clinical presentation is most consistent with ATN. ATN can be attributed to infection, CT with contrast as well as medications including Toradol. Baseline creatinine has been 0.6 Recommendations -- recovering from recent acute kidney injury most likely secondary to dense ATN , creatinine 2.7 this morning. Blood pressure well control, non-oliguric. -- hypercalcemia slightly improved to 10.4, PTH normal. DC ergocalciferol, avoid all vit D and calcium supplement -- continue to monitor renal function daily while inpatient however patient would be okay to be discharged and expect renal function to continue to improve -- Avoid NSAIDs, keep well hydrated --will continue to follow while inpatient, please schedule for outpatient Nephrology follow-up with Dr. Donis in 1-2 weeks after discharge, scheduled for renal panel 2/3 days after discharge and then weekly renal panel until renal function is back to normal with complete recovery of acute kidney injury
--- NOTE | 2017-03-13 14:40 | Pharmacy Progress Note ---
Glycemic Control Progress Note Date of Service Mar 13, 2017. Scope Glycemic Pharmacist consulted for glycemic control to write orders per [facility] inpatient glycemic control protocol. Objective Accuchecks BSG (last 24hrs): Test 03/12/17 16:27 03/12/17 20:13 03/13/17 01:52 03/13/17 07:36 Bedside Glucose 105 mg/dl (70-99) 255 mg/dl (70-99) 208 mg/dl (70-99) Random Glucose 227 mg/dl (70-99) Test 03/13/17 07:54 03/13/17 11:46 Bedside Glucose 240 mg/dl (70-99) 145 mg/dl (70-99) HbA1c: Test 02/27/17 14:54 Hemoglobin A1c 10.0 % (4.5-5.6) H Recent Pertinent Medications The patient is currently receiving: * Basal insulin * Lantus SQ BID * for BSG < 90mg/dl - HOLD * for BSG 90-120mg/dL - 10 units * for BSG > 120mg/dl - 20 units * Bolus insulin * Goal Range: Low 120 mg/dL - High 160 mg/dL for type 1 with poor control and very liable BSGs when on SQ regimen * Correction Factor: 20 mg/dL/unit * Nutritional / Prandial insulin per carb ratio of 1 unit per 7 grams CHO consumed Outpatient Anti-Diabetic Meds Basal and Bolus Insulin Assessment & Plan ASSESSMENT: * See progress note from 03/09/17 for more background info, in short: * Pt receiving IV infusion insulin on 03/10 and then SQ insulin for hyperglycemia secondary to baseline uncontrolled type 1 diabetic, stress/Sepsis MRSA infection, IV Daptomycin changed to PO Clindamycin today, TAYLOR resolving * Pt to remain inpatient until SCR ~2.0mg/dl per nephrology, 2.7mg/dl today * Patient was titrated off of insulin drip 03/10 and blood sugars pretty well in range since then, except when patient eats a very high carbohydrate load. * For example - pt had 167g CHO last night at dinner, resulting in BSG in 200s , but is back down to goal at 145mg/dl now. * No changes needed to insulin regimen PLAN FOR INPATIENT GLYCEMIC CONTROL: * Basal insulin * Lantus SQ BID * for BSG < 90mg/dl - HOLD * for BSG 90-120mg/dL - 10 units * for BSG > 120mg/dl - 20 units * Bolus insulin * NovoLog per scale ACHS or Q6hrs while NPO and overnight at 0200 to ensure glycemic control overnight * Goal Range: Low 120 mg/dL - High 160 mg/dL for type 1 with poor control and very liable BSGs when on SQ regimen. * Correction Factor: 20 mg/dL/unit * Nutritional / Prandial insulin per carb ratio of 1 unit per 7 grams CHO consumed * Please note that the plan above was derived based on current level of insulin resistance and hospital stress. These recommendations are appropriate for inpatient admission only. Plan of care upon discharge will need to be reassessed to avoid potential outpatient hypo/hyperglycemia. Thank you.
[2017-03-13 15:21] VITALS: BP 124/80; PULSE 74; TEMP 36.8; O2SAT 97
--- NOTE | 2017-03-13 20:42 | Progress Note ---
Subjective Date of Service: Mar 13, 2017. Subjective Pt evaluation today including: conversation w/ patient, conversation w/ family (mother at bedside), physical exam, chart review, lab review Pain: none PO Intake: normal Voiding: no voiding problems no events feels good anxious to go home Problem List Medical Problems: (1) Abscess of left forearm Status: Acute (2) Chest wall hematoma Status: Acute (3) Chronic Viral Hepatitis C Status: Chronic (4) Endocarditis Status: Acute (5) Hyperglycemia due to type 1 diabetes mellitus Status: Acute (6) IV drug abuse Status: Chronic (7) Left arm cellulitis Status: Acute (8) Rib pain on left side Status: Acute (9) Type 1 diabetes Status: Chronic Review of Systems Constitutional: No fever Respiratory: No shortness of breath Abdomen: No pain, No diarrhea Musculoskeletal: No joint pain (right groin - none) Objective Vital Signs Date Time Temp Pulse Resp B/P (MAP) Pulse Ox O2 Delivery O2 Flow Rate FiO2 03/13/17 16:38 Room Air 03/13/17 15:21 36.8 74 16 124/80 (95) 97 Room Air 03/13/17 08:14 37.1 73 16 114/78 (90) 98 Room Air 03/13/17 08:00 98 Room Air 03/13/17 00:00 37.0 80 20 111/69 (83) 97 Room Air 03/13/17 00:00 98 Room Air Physical Exam General Appearance: no apparent distress ENT: pharynx normal Neck: no JVD Respiratory/Chest: lungs clear, no respiratory distress, no accessory muscle use Cardiovascular: regular rate, rhythm, no gallop, no murmur Abdomen: normal bowel sounds, non tender, soft, no organomegaly Extremities: no pedal edema Neurologic/Psychiatric: alert, oriented x 3 Skin: + pertinent finding (wound vac in place, left upper quadrant) Laboratory Results Last 24 Hours Test 03/13/17 01:52 03/13/17 07:36 03/13/17 07:54 03/13/17 11:46 Bedside Glucose 208 mg/dl 240 mg/dl 145 mg/dl White Blood Count 9.74 K/uL Red Blood Count 3.95 M/uL Hemoglobin 11.4 g/dL Hematocrit 34.2 % Mean Corpuscular Volume 86.6 fL Mean Corpuscular Hemoglobin 28.9 pg Mean Corpuscular Hemoglobin Concent 33.3 g/dl RDW Standard Deviation 41.3 fL RDW Coefficient of Variation 12.8 % Platelet Count 586 K/uL Mean Platelet Volume 8.1 fL Sodium Level 137 mmol/L Potassium Level 4.2 mmol/L Chloride Level 102 mmol/L Carbon Dioxide Level 26 mmol/L Anion Gap 9.0 mmol/L Blood Urea Nitrogen 42 mg/dl Creatinine 2.70 mg/dl Est Creatinine Clear Calc Drug Dose 50.3 ml/min Estimated GFR () 37.4 Estimated GFR (Non- 32.2 BUN/Creatinine Ratio 15.4 Random Glucose 227 mg/dl Calcium Level 10.2 mg/dl Parathyroid Hormone (Intact) 40.0 pg/mL Test 03/13/17 16:27 03/13/17 20:14 Bedside Glucose 350 mg/dl 325 mg/dl Assessment and Plan 22yo male with: 1. sepsis 2nd to MRSA abscess on abdominal wall s/p I&D now with wound vac - stop IV daptomycin; change to clindamycin 300mg TID. D/c home with clindamycin. Add lactinex. Spoke with SW - william for wound vac pending. 2. sepsis-associated ATN (suspected) vs contrast nephropathy - improving nicely ; nonoliguric. Cr now 2.7. BMP in am. 3. ?depression - follow carefully for need for antidepressants. 4. T1DM, uncontrolled - s/p insulin infusion, now back on basal/bolus SC insulin; pharmacy managing. 5. DVT proph - heparin BID. 6. chronic hepatitis C - most recent LFTs were stable; HIV test this admission negative 7. IV drug abuse - not candidate for PICC line at d/c. hopefully can d/c home on Tuesday03/14/17 if wound vac is approved will need f/u with wound care clinic, ID, and general surgery Discharge planning: home with home health (with wound vac)
[2017-03-13] MEDS: ZOLPIDEM TARTRATE 5 MG TAB PO PRN (21:46)
[2017-03-14] VITALS: BP 116/71; PULSE 82; TEMP 36.8; O2SAT 97; O2SAT 98
[2017-03-14 07:20] VITALS: BP 113/75; PULSE 74; TEMP 37; O2SAT 99
[2017-03-14 07:54] LABS: HEMATOCRIT 33.8 % (42-52); MEAN CORPUSCULAR HEMOGLOBIN 28.8 pg (25-34); MEAN CORPUSCULAR HGB CONC 33.4 g/dl (32-36); MEAN PLATELET VOLUME 8.2 fL (7.4-10.4); PLATELET COUNT 555 K/uL (130-400); RED BLOOD COUNT 3.93 M/uL (4.7-6.1)
[2017-03-14 08:01] VITALS: O2SAT 98
[2017-03-14] MEDS: LACTOBACILLUS ACIDOPHILUS (FLORANEX) TAB PO SCH ×2 (08:18→13:13)
[2017-03-14] MEDS: CLINDAMYCIN HCL 150 MG CAP PO SCH ×2 (08:18→13:47)
[2017-03-14] MEDS: HEPARIN SOD 5000 UNIT/0.5 ML CARP SQ SCH (08:19)
[2017-03-14] MEDS: FAMOTIDINE 20 MG TAB PO SCH (08:21)
[2017-03-14] MEDS: ACETAMINOPHEN 500 MG TAB PO SCH (08:24)
[2017-03-14 08:27] LABS: BUN/CREATININE RATIO 16.4 (10-20); CALCIUM 10.5 mg/dl (8.5-10.1); CREATININE 2.1 mg/dl (0.60-1.40); POTASSIUM 3.7 mmol/L (3.5-5.1)
[2017-03-14] MEDS: INSULIN ASPART 100 UNITS/ML 3 ML PEN SC SCH ×2 (08:29→13:15)
[2017-03-14] MEDS: INSULIN GLARGINE SOLOSTAR 100 UNITS/ML 3 ML PEN SC SCH (08:30)
--- NOTE | 2017-03-14 09:54 | Nephrology Progress Note ---
Nephrology Progress Note Date of Service Mar 14, 2017. Chief Complaint Follow-up for acute kidney injury. Anna Smith Was seen and examined in his room this morning with his Mom Namita at bedside. He has been otherwise doing well, denies any symptom. Blood pressure acceptable. Denies any overnight episode of fever or chills. Renal function continues to improve, creatinine 2.1 this morning. Has remain non-oliguric. Review of Systems A complete review of systems was performed. Pertinent positives are noted above. All other systems are negative. Vital Signs Last 8 Hrs Date Time Temp Pulse Resp B/P (MAP) Pulse Ox O2 Delivery O2 Flow Rate FiO2 03/14/17 08:01 98 Room Air 03/14/17 07:20 37.0 74 16 113/75 (88) 99 Room Air Last Recorded Weight Weight (Kilograms): 90.400 Physical Exam GENERAL: young male, , AAA x 3, pleasant, healthy-appearing, not in any distress. NECK: Supple, no JVD. RESPIRATORY: Normal breathing efforts, no accessory muscle use, clear to auscultation bilaterally, no wheezes or rales. CARDIOVASCULAR: S1, S2 normal, rate rhythm regular. EXTREMITY: No lower extremity edema NEURO: speech fluent. PSYCHIATRY: Normal mood and judgment Family History Diabetes mellitus Social History Smoking Status: Never smoker Smokeless Tobacco Use: No Alcohol Use: occasionally Drug Use: cocaine, heroin, marijuana, other Marital Status: single Housing Status: lives with family Occupation: unemployed, student Laboratory Results Past 24 Hours 03/14/17 07:21 03/14/17 07:21 Test 03/13/17 11:46 03/13/17 16:27 03/13/17 20:14 03/14/17 01:30 Bedside Glucose 145 mg/dl (70-99) 350 mg/dl (70-99) 325 mg/dl (70-99) 115 mg/dl (70-99) Test 03/14/17 07:21 03/14/17 07:42 03/14/17 09:37 Red Blood Count 3.93 M/uL (4.7-6.1) Mean Corpuscular Volume 86.0 fL (80-100) Mean Corpuscular Hemoglobin 28.8 pg (25-34) Mean Corpuscular Hemoglobin Concent 33.4 g/dl (32-36) RDW Standard Deviation 40.4 fL (36.4-46.3) RDW Coefficient of Variation 12.7 % (11.5-14.5) Mean Platelet Volume 8.2 fL (7.4-10.4) Anion Gap 10.0 mmol/L (3-11) Est Creatinine Clear Calc Drug Dose 64.7 ml/min Estimated GFR () 50.6 Estimated GFR (Non- 43.7 BUN/Creatinine Ratio 16.4 (10-20) Calcium Level 10.5 mg/dl (8.5-10.1) Bedside Glucose 110 mg/dl (70-99) Allergies Coded Allergies: Azithromycin (Verified Allergy, Unknown, ., 02/27/17) Cephalosporins (Verified Allergy, Unknown, unknown, 02/27/17) mother Sulfa Antibiotics (Verified Allergy, Unknown, ., 02/27/17) Medications Current Inpatient Medications Medications (Trade) Dose Ordered Sig/Myron Route Start Time Stop Time Status Last Admin Dose Admin Zolpidem Tartrate (Ambien Tab) 5 mg HSZ PRN PO 02/27/17 12:00 03/29/17 11:59 03/13/17 21:46 5 MG Ondansetron HCl (Zofran Inj) 4 mg Q6H PRN IV 02/27/17 12:00 03/29/17 11:59 03/03/17 17:45 4 MG Glucose (Glucose 40% Gel) UD PRN PO 02/27/17 12:00 03/29/17 11:59 Glucose (Glucose Chew Tab) 1 tabs UD PRN PO 02/27/17 12:00 03/29/17 11:59 Dextrose (Dextrose 50% 50ML Syringe) 50 ml UD PRN IV 02/27/17 12:00 03/29/17 11:59 Glucagon (Glucagon Inj) 1 mg UD PRN SQ 02/27/17 12:00 03/29/17 11:59 Famotidine (Pepcid Tab) 20 mg Q12 PO 02/28/17 21:00 03/30/17 20:59 03/14/17 08:21 20 MG Sodium Chloride ([place] Nasal [place]) 1 sprays PRN PRN NA 03/02/17 14:15 04/01/17 14:14 Tramadol HCl (Ultram Tab) 100 mg Q6H PRN PO 03/02/17 22:00 10/3/17 11:59 03/12/17 08:07 100 MG Acetaminophen (Tylenol Tab) 1,000 mg BID PO 03/02/17 21:00 04/01/17 20:59 03/14/17 08:24 1,000 MG Acetaminophen (Tylenol Tab) 1,000 mg Q12 PRN PO 03/02/17 17:15 04/01/17 17:14 Miscellaneous Information (Consult Glycemic Management Pharmacy) 1 ea UD PRN N/A 03/06/17 17:47 04/05/17 17:46 Insulin Glargine (Lantus Solostar Pen) BID SC 03/10/17 10:00 04/09/17 09:59 03/14/17 08:30 10 UNITS Insulin Aspart (novoLOG ASPART) SLIDING SCALE ACHS SC 03/10/17 16:15 04/09/17 16:14 03/14/17 08:29 6 UNITS Insulin Aspart (novoLOG ASPART) SLIDING SCALE 0200 SC 03/12/17 02:00 04/11/17 01:59 03/13/17 02:00 3 UNITS Heparin Sodium (Porcine) (Heparin Sq 5000 Unit/0.5ml) 5,000 unit Q12H SQ 03/12/17 09:00 04/11/17 08:59 Clindamycin HCl (Cleocin Cap) 300 mg TID PO 03/13/17 11:00 03/23/17 10:59 03/14/17 08:18 300 MG Lactobacillus Acidophilus (Floranex Tab) 4 tab TIDM PO 03/13/17 12:00 04/12/17 11:59 03/14/17 08:18 4 TAB Impression (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 Tijerina has IDDM, h/o IVDA and chronic hepatitis C. He was admitted with a left chest / upper abdominal wall abscess as well as a small intrapelvic abscess. Chest wall abscess I&D performed on 02/28/17. Cultures from drainage growing MRSA. Blood cultures negative. TTE did not show vegetation or evidence of valvular heart disease. CT of the pelvis 03/04/17 shows a stable 2.4 cm right obturator internus intramuscular collection. Renal US normal. Urine analysis is bland with acellular microscopy. Clinical presentation is most consistent with ATN. ATN can be attributed to infection, CT with contrast as well as medications including Toradol. Baseline creatinine has been 0.6 Renal function im[roved, cr 2.1. Found to have hypercalcemia, ws on ergocalciferol, discontinued, PTH 45 Recommendations -- recovering from recent acute kidney injury most likely secondary to dense ATN , creatinine 2.1 this morning. Blood pressure well control, non-oliguric. -- hypercalcemia stable at 10.5, PTH normal , however relatively high for hypercalcemia ? Hyperparathyroid DC ergocalciferol, avoid all vit D and calcium supplement, check PTHrP, SPEP, UPEP, encourage hydration -- continue to monitor renal function daily while inpatient however patient would be okay to be discharged and expect renal function to continue to improve -- Avoid NSAIDs --will continue to follow while inpatient, please schedule for outpatient Nephrology follow-up with Dr. Donis in 1-2 weeks after discharge, scheduled for renal panel 2/3 days after discharge and then weekly renal panel until renal function is back to normal with complete recovery of acute kidney injury
[2017-03-14] MEDS ORDERED: INSULIN GLARGINE SOLOSTAR 100 UNITS/ML 3 ML PEN SC SCH ×2 (11:00)
--- NOTE | 2017-03-14 11:05 | Pharmacy Progress Note ---
Glycemic Control Progress Note Date of Service Mar 14, 2017. Scope Glycemic Pharmacist consulted for glycemic control to write orders per [facility] inpatient glycemic control protocol. Objective Accuchecks BSG (last 24hrs): Test 03/13/17 11:46 03/13/17 16:27 03/13/17 20:14 03/14/17 01:30 Bedside Glucose 145 mg/dl (70-99) 350 mg/dl (70-99) 325 mg/dl (70-99) 115 mg/dl (70-99) Test 03/14/17 07:21 03/14/17 07:42 Random Glucose 100 mg/dl (70-99) Bedside Glucose 110 mg/dl (70-99) HbA1c: Test 02/27/17 14:54 Hemoglobin A1c 10.0 % (4.5-5.6) H Recent Pertinent Medications The patient is currently receiving: * Basal insulin: Lantus 20 units every 12 hours * Correctional Insulin: Novolog Correction per scale ACHS Goal Range: Low 120 mg/dL - High 160 mg/dL Correction Factor: 20 mg/dL/unit * Prandial insulin: Per carb ratio of 1 unit per 7 grams CHO consumed Outpatient Anti-Diabetic Meds Basal Insulin * Lantus 60 units SQ qPM Bolus Insulin * Humalog Assessment & Plan ASSESSMENT: * See progress note from 03/13/17 for more background info, in short: * Pt receiving SQ basal bolus insulin regimen for hyperglycemia secondary to baseline DM (outpatient regimen on hold) and stress/infection * Patient is currently receiving an average of 92 units of insulin per day * 40 units of basal insulin * 52 units of prandial/correctional insulin * BSGs ranging 145 - 350 mg/dl over the past 24hrs * Changes needed to insulin regimen: * AM Fasting BSG = 110 mg/dl. This is in at goal range for patient based on inpatient targets and co-morbidities. Continue Lantus dosing per scale - will slightly increase the higher end of the scale due to BSGs trending upward and significant improvement in renal function. * Post-prandial BSGs were elevated yesterday at lunch and dinner (350 mg/dL, 325 mg/dL)- unsure of the cause. The patient has been on the same CF/CR since and it worked well on previous days. Will tighten CF/CR today. PLAN FOR INPATIENT GLYCEMIC CONTROL: * Basal insulin * Lantus 10-25 units SQ BID * 10 units for BSG less than 100 mg/dL * 20 units for BSG 100-180 mg/dL * 25 units for BSG greater than 180 mg/dL * Bolus insulin - tighten * NovoLog per scale ACHS or Q6hrs while NPO * Goal Range: Low 120 mg/dL - High 160 mg/dL * Correction Factor: 15 mg/dL/unit * Nutritional / Prandial insulin per carb ratio of 1 unit per 5 grams CHO consumed RECOMMENDATIONS FOR DISCHARGE: * * Please note that the plan above was derived based on current level of insulin resistance and hospital stress. These recommendations are appropriate for inpatient admission only. Plan of care upon discharge will need to be reassessed to avoid potential outpatient hypo/hyperglycemia. Thank you.
[2017-03-14] MEDS ORDERED: TRAM-10 PO (14:19)
[2017-03-14] MEDS ORDERED: CLC150 PO (14:19)
[2017-03-14] MEDS ORDERED: INSU100I23 SC ×2 (14:21→14:47)
[2017-03-14] MEDS ORDERED: NVLGIPEN SC (14:21)
--- NOTE | 2017-03-14 14:22 | Discharge Instructions ---
Discharge Instructions Date of Service Mar 14, 2017. Admission Reason for Admission: Chest Wall Abcess Discharge Discharge Diagnosis / Problem: staph chest wall infection, acute renal failure- > resolved Discharge Goals Goal(s): Diagnostic testing, Therapeutic intervention Activity Recommendations Activity Limitations: as noted below Lifting Limitations: gradually increase as tolerated . Current Hospital Diet Patient's current hospital diet: Diabetes Type 1 Diet, Renal Diet Discharge Diet Recommended Diet: Diabetes Type 2 Diet Procedures Procedures Performed: Incision and Drainage Left Abdominal Wall Abcess Pending Studies Studies pending at discharge: no Laboratory Results Hemoglobin A1c Test 02/27/17 14:54 Range/Units Estimated Average Glucose 240 mg/dl Hemoglobin A1c 10.0 H 4.5-5.6 % Medical Emergencies . Who to Call and When: Medical Emergencies: If at any time you feel your situation is an emergency, please call 911 immediately. . Non-Emergent Contact Non-Emergency issues call your: Primary Care Provider Call Non-Emergent contact if: temperature is above 101, your pain is unusual for you . . "Provider Documentation" section prepared by Eddie Skaggs. . VTE Core Measure Inpt VTE Proph given/why not?: Treatment not indicated
[2017-03-14 15:26] VITALS: BP 113/75; PULSE 74; TEMP 37; O2SAT 98
--- NOTE | 2017-03-14 17:40 | Discharge Summary ---
Discharge Summary Date of Service Mar 14, 2017. Discharge Summary Admission Date: Feb 27, 2017 at 12:23 Discharge Date: Mar 14, 2017 Discharge Disposition: Home with services Principal Diagnosis: chest wall abscess, acute renal failure, obturator internus cyst Problems/Secondary Diagnoses: (1) Chronic Viral Hepatitis C Status: Chronic (2) IV drug abuse Status: Chronic (3) Type 1 diabetes Status: Chronic Immunizations: Have You Had Influenza Vaccine: Unknown History of Tetanus Vaccine?: Unknown History of Pneumococcal: Unknown Medication Reconciliation New Medications: Clindamycin HCl (Clindamycin HCl) 150 Mg Cap 300 MG PO TID, #21 CAP Insulin Aspart (Novolog Flexpen) 100 Units/Ml Inj 0 UNITS SC ACHS, #1 PEN Changed Medications: Insulin Glargine (Basaglar Kwikpen) 100 Unit/Ml Inj 30 UNITS SC BID, #1 PEN (Changed from: 10 UNITS) Continued Medications: Magnesium Oxide (Mag-Ox) 400 Mg Tab 400 MG PO DAILY, TAB Tramadol (Ultram) 50 Mg Tab 1-2 TAB PO Q6H PRN for Pain, #24 TAB (This prescription has been renewed) For Initial Treatment Discontinued Medications: Cholecalciferol (Vitamin D) 1,000 Unit Tab 1000 UNITS PO DAILY Insulin Lispro (Human) (Humalog Kwikpen) 100 Unit/Ml Inj 1 DOSE SC WM COVERAGE DIRECTED BY SLIDING SCALE Discharge Exam Review of Systems: Constitutional: No fever, No chills Respiratory: No cough, No sputum Physical Exam: General Appearance: WD/WN, no apparent distress Eyes: PERRL, EOMI Neurologic/Psychiatric: no motor/sensory deficits, alert, normal mood/affect Hospital Course 22yo male sepsis from skin abscess sepsis mrsa, s/p I&D by Dr. Virk. 02/28 staph aureus transitioned to clindamycin orally wound VAC with out pt ID management echo negative for valvular vegetations. IVDA HIV negative T1DM -remains in control lantus 20 units daily, novolog ssi hypokalemia, hypomagnesemia -replete HepC status - noted. To be positive, will need outpt follow up will discuss with ID when albe acute kidney failure non oliguric- renal u/s normal. Nephrology will continue to follow anemia - likely of chronic disease Depression remains with depressed affect has seen psychiatry is not interested in medications at this time Total Time Spent: Greater than 30 minutes This includes examination of the patient, discharge planning, medication reconciliation, and communication with other providers. Discharge Instructions Please refer to the electronic Patient Visit Report (Discharge Instructions) for additional information.
[2017-03-15 16:28] LABS: ALBUMIN 3.6 G/DL (3.8-4.8); GAMMA GLOBULIN 0.7 G/DL (0.8-1.7); TOTAL PROTEIN 7.5 G/DL (6.2-8.3)
== END 2017-03-14 15:40 | disposition home health service (06) | DRG 853 ==
LOC: C.EDB 09:00 → C.MED 12:23 → EDBEDREQ 13:18 → ENRESERV 13:28 → EDBEDREQ 15:00 → ENRESERV 15:46 → C.2E 16:55 → ENRESERV 03-03 14:44 → C.MSW 03-03 16:51 → ENRESERV 03-08 18:23 → C.2E 03-08 19:56 → ENRESERV 03-11 12:38 → C.MS2W 03-11 13:25
PROVIDERS: ADMIT Hospitalist; ATTEND Internal Medicine
PROC: 0W9F0ZZ Drainage of Abdominal Wall, Open Approach (ICD-10-PCS; principal; 2017-02-28 15:15)
DX: A41.02 Sepsis due to Methicillin resistant Staphylococcus aureus (principal); K65.1 Peritoneal abscess; N17.0 Acute kidney failure with tubular necrosis; L02.211 Cutaneous abscess of abdominal wall; L02.213 Cutaneous abscess of chest wall; E10.65 Type 1 diabetes mellitus with hyperglycemia; B18.2 Chronic viral hepatitis C; E87.6 Hypokalemia; E83.42 Hypomagnesemia; E87.5 Hyperkalemia; D63.8 Anemia in other chronic diseases classified elsewhere; F32.9 Major depressive disorder, single episode, unspecified; Z79.4 Long term (current) use of insulin; Z83.3 Family history of diabetes mellitus; Z87.898 Personal history of other specified conditions; F17.200 Nicotine dependence, unspecified, uncomplicated; T36.8X5A Adverse effect of other systemic antibiotics, initial encounter

== ENCOUNTER → 2017-04-14 | Outpatient (CLI) | payer OTHER ==
[~2017-04-14] MED LIST changes: -CHOL100010 PO; -INSU100I2 SC; +NVLGIPEN SC
[2017-04-14 16:21] LABS: BLOOD UREA NITROGEN 19 mg/dl (7-18); BUN/CREATININE RATIO 19.4 (10-20); CALCIUM 9.9 mg/dl (8.5-10.1); CARBON DIOXIDE 25 mmol/L (21-32); CHLORIDE 99 mmol/L (98-107); GLUCOSE 237 mg/dl (70-99); POTASSIUM 3.8 mmol/L (3.5-5.1); SODIUM 135 mmol/L (136-145)
[2017-04-14 16:32] LABS: CHOLESTEROL 261 mg/dl (0-200); CHOLESTEROL/HDL RATIO 8.2; HDL CHOLESTEROL 32 mg/dl; RATIO 112.5 mcg/mg (0-30.0); THYROID STIMULATING HORMONE 0.367 uIu/ml (0.300-4.500); TRIGLYCERIDES 406 mg/dl (0-150)
[2017-04-15 07:00] LABS: ESTIMATED AVERAGE GLUCOSE 220 mg/dl; HA1C FLAG Normal (Normal)
== END | disposition home or self-care (01) ==
LOC: C.LAB1850 14:58
PROVIDERS: ATTEND Nurse Practitioner Family
DX: E10.9 Type 1 diabetes mellitus without complications (principal)

== ENCOUNTER 2017-05-17 21:52 | Emergency (ER) | payer OTHER ==
[~2017-05-17] VITALS: Ht 188 cm; Wt 90.9 kg
[2017-05-17 22:13] VITALS: TEMP 36.5; Ht 188 cm; Wt 90.9 kg
[2017-05-17] MEDS ORDERED: TRAMADOL HCL 50 MG TAB PO STA (22:17)
[2017-05-17] MEDS ORDERED: XYLOCAINE 1%/SOD BICARB 20 ML VIAL INFIL ONE (22:30)
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
[2017-05-17] MEDS ORDERED: TRAM-10 PO (23:23)
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
[2017-05-17 23:35] VITALS: BP 129/81; PULSE 108; O2SAT 95
--- NOTE | 2017-05-18 06:47 | DIAGNOSTIC IMAGING REPORT ---
R SHOULDER MIN 2 VIEWS ROUTINE CLINICAL HISTORY: Right shoulder pain status post trauma COMPARISON: 04/20/2016 DISCUSSION: No fractures or dislocations are visualized. IMPRESSION: No fractures or dislocations identified. Electronically signed by: Walt Gray M.D. 05/18/2017 6:45 AM Dictated Date/Time: 05/18/2017 6:45 AM
== END 2017-05-17 23:35 | disposition home or self-care (01) ==
LOC: C.EDB 21:53 → C.EDC 23:35
DX: S01.01XA Laceration without foreign body of scalp, initial encounter (principal); S16.1XXA Strain of muscle, fascia and tendon at neck level, initial encounter; S40.011A Contusion of right shoulder, initial encounter; S80.211A Abrasion, right knee, initial encounter; V49.88XA Car occupant (driver) (passenger) injured in other specified transport accidents, initial encounter; F11.90 Opioid use, unspecified, uncomplicated; F12.90 Cannabis use, unspecified, uncomplicated; F14.90 Cocaine use, unspecified, uncomplicated; D64.9 Anemia, unspecified; B18.2 Chronic viral hepatitis C; E10.9 Type 1 diabetes mellitus without complications; Z87.01 Personal history of pneumonia (recurrent); Z83.3 Family history of diabetes mellitus

== ENCOUNTER 2017-07-10 09:44 | Emergency (ER) | payer OTHER ==
[~2017-07-10] VITALS: Ht 188 cm; Wt 90.0 kg
[~2017-07-10 09:44] MED LIST changes: -MAGN400T6 PO
[2017-07-10 09:57] VITALS: TEMP 36.7; Ht 188 cm; Wt 90.0 kg
[2017-07-10] MEDS ORDERED: INSU100I SQ (10:21)
[2017-07-10] MEDS ORDERED: INSU100I23 SQ (10:21)
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
[2017-07-10 12:26] VITALS: BP 130/69; PULSE 88; O2SAT 95
== END 2017-07-10 12:27 | disposition home or self-care (01) ==
LOC: C.EDB 09:47 → C.EDA 12:27
DX: E10.65 Type 1 diabetes mellitus with hyperglycemia (principal); Z87.01 Personal history of pneumonia (recurrent); Z86.14 Personal history of Methicillin resistant Staphylococcus aureus infection; Z83.3 Family history of diabetes mellitus

== ENCOUNTER → 2017-08-18 | Outpatient (CLI) | payer OTHER ==
[~2017-08-18] MED LIST changes: +INSU100I SQ; -INSU100I23 SC; +INSU100I23 SQ; -NVLGIPEN SC; -TRAM-10 PO
[2017-08-18 13:40] LABS: HEMOGLOBIN A1C 9.8 % (4.5-5.6)
== END | disposition home or self-care (01) ==
LOC: C.LAB1850 11:48
PROVIDERS: ATTEND Nurse Practitioner Family
DX: E10.9 Type 1 diabetes mellitus without complications (principal)

== ENCOUNTER 2017-10-15 17:06 | Emergency (ER) | payer OTHER ==
[2017-10-15 17:11] VITALS: TEMP 36.3; Ht 188 cm
[2017-10-15] MEDS ORDERED: SODIUM CHLORIDE 0.9% 1000ML 1,000 ML IV STA ×2 (17:28→21:06)
[2017-10-15] MEDS ORDERED: ONDANSETRON INJ 2 MG/ML 2 ML VIAL IV STA (17:28)
[2017-10-15] MEDS ORDERED: INSPMPHMLG (17:57)
[2017-10-15 18:01] LABS: BASO % 0.1 %; BASO ABS # 0.01 K/uL (0-0.2); EOS % 0.6 %; EOS ABS # 0.07 K/uL (0-0.5); HEMATOCRIT 41.1 % (42-52); HEMOGLOBIN 13.7 g/dL (14.0-18.0); IG# 0.04 K/uL (0.00-0.02); LYMPH % 6.3 %; LYMPH ABS # 0.73 K/uL (1.2-3.4); MEAN CORPUSCULAR HEMOGLOBIN 29.7 pg (25-34); MEAN CORPUSCULAR HGB CONC 33.3 g/dl (32-36); MEAN PLATELET VOLUME 9.4 fL (7.4-10.4); MONO % 4.2 %; MONO ABS # 0.49 K/uL (0.11-0.59); NEUT % 88.5 %; NEUT ABS # 10.27 K/uL (1.4-6.5); PLATELET COUNT 234 K/uL (130-400); RED CELL DISTRIBUTION WIDTH CV 12.4 % (11.5-14.5); RED CELL DISTRIBUTION WIDTH SD 39.7 fL (36.4-46.3); WHITE BLOOD COUNT 11.61 K/uL (4.8-10.8)
[2017-10-15 18:32] LABS: ALBUMIN 4.3 gm/dl (3.4-5.0); ALKALINE PHOSPHATASE 85 U/L (45-117); ALT/SGPT 20 U/L (12-78); AST/SGOT 13 U/L (15-37); BLOOD UREA NITROGEN 20 mg/dl (7-18); CALCIUM 9.5 mg/dl (8.5-10.1); CARBON DIOXIDE 20 mmol/L (21-32); CREATININE 1.19 mg/dl (0.60-1.40); GLUCOSE 437 mg/dl (70-99); LIPASE 179 U/L (73-393); POTASSIUM 4.2 mmol/L (3.5-5.1); SODIUM 133 mmol/L (136-145); TOTAL PROTEIN 8.2 gm/dl (6.4-8.2)
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
--- NOTE | 2017-10-15 18:54 | DIAGNOSTIC IMAGING REPORT ---
SINGLE VIEW CHEST CLINICAL HISTORY: Vomiting. FINDINGS: 2 AP, portable, upright chest radiographs are compared to study dated 02/04/2016 and correlated with chest CT dated 02/27/2017. The examination is degraded by portable technique and patient rotation. The cardiomediastinal silhouette is unremarkable. The lungs and pleural spaces are clear. No pneumothorax is seen. The bony thorax is grossly intact. IMPRESSION: No active disease in the chest. Electronically signed by: Scott Gordon M.D. 10/15/2017 6:53 PM Dictated Date/Time: 10/15/2017 6:52 PM
[2017-10-15] MEDS ORDERED: PROM12.57 PO (22:12)
[2017-10-15] MEDS ORDERED: PHENERGAN 25MG HOMEPACK PO ONE (22:30)
[2017-10-15 23:26] VITALS: BP 116/68; PULSE 98; O2SAT 98
== END 2017-10-15 23:28 | disposition home or self-care (01) ==
LOC: C.EDB 17:07
DX: R11.2 Nausea with vomiting, unspecified (principal); E10.9 Type 1 diabetes mellitus without complications; Z96.41 Presence of insulin pump (external) (internal); E87.1 Hypo-osmolality and hyponatremia; B18.2 Chronic viral hepatitis C; Z87.01 Personal history of pneumonia (recurrent); Z86.14 Personal history of Methicillin resistant Staphylococcus aureus infection; Z83.3 Family history of diabetes mellitus; Z87.891 Personal history of nicotine dependence; F14.90 Cocaine use, unspecified, uncomplicated; F11.90 Opioid use, unspecified, uncomplicated; F12.90 Cannabis use, unspecified, uncomplicated

== ENCOUNTER 2019-10-17 15:03 | Inpatient (IN) ==
--- NOTE | 2019-10-17 15:12 | Emergency Department Note ---
Impression & Plan DKA, type 1, Hypomagnesemia, Leukocytosis ED Provider Note CHIEF COMPLAINT: Nausea and vomiting HISTORY OF PRESENTING ILLNESS: This is a 24-year-old male with past medical history significant for gastroparesis, type 1 diabetes on insulin pump, IV drug abuse and chronic marijuana use, who presents to the emergency department by private vehicle with complaint of intractable nausea and vomiting that started yesterday. Patient was evaluated yesterday in the emergency department and received IV medications and fluids for his symptoms. He was also given capsaicin cream to treat suspected cyclic vomiting as a result of his chronic marijuana use. Patient states he was feeling better when he left the ER last night, but his symptoms returned. He has not been using the capsaicin cream and he does not feel that it is helping. He has not taken any of his home antiemetic medications today for his symptoms. He states that he has been keeping some sips of water down, but nothing else. He is concerned because he vomited up his methadone pill yesterday, and because of his vomiting today he has not taken his methadone pill and he is worried about this. He states currently that the methadone clinic is giving him 2 weeks at a time of his medication, he denies missing any other doses except for yesterday and today. He feels that this is his gastroparesis flaring up. He does have a history of DKA, but states that he does not think that is happening right now. He states his blood glucose levels have been in the 200-300 range which is fairly normal for him, and he denies any problems with his insulin pump. He denies any fevers or chills. He denies any chest pain, shortness of breath, palpitations, cough or URI symptoms. He denies any abdominal pain. He denies any diarrhea or constipation. He does note that he has been having some cramping pain in his mid to upper back that comes and goes, he currently states this is relieved and he denies any pain to me at this time. He denies any urinary complaints. REVIEW OF SYSTEMS: A complete 10 point review of systems was reviewed with the patient with pertinent positives and negatives as per history of present illness. All else were negative. PAST MEDICAL HISTORY: Type 1 diabetes, gastroparesis, history IV drug abuse on methadone, hepatitis C SOCIAL HISTORY: Lives at home with family, denies tobacco use, admits to alcohol use and marijuana use ALLERGIES: Reviewed in chart and with the patient PHYSICAL EXAM: CONSTITUTIONAL: Alert, Pleasant and cooperative. Nontoxic-appearing and in no acute distress, but appears to feel unwell. Moderately dehydrated. Pale. HEENT: Normocephalic, atraumatic. PERRL, EOMI. Pharynx normal. Dry mucous membranes. NECK: Supple, full active range of motion without discomfort. RESPIRATORY: Clear to auscultation bilaterally with no wheezing, crackles, rhonchi or stridor. Equal expansion bilaterally. CARDIOVASCULAR: Tachycardic. Regular rhythm with no murmurs, rubs or gallops. Normal peripheral perfusion, 2+ distal pulses in all 4 extremities. No edema. BACK: Mild tenderness to palpation of the bilateral paraspinous muscles of the thoracic back. No midline tenderness. No erythema, swelling, crepitus, or rash. GASTROINTESTINAL: Soft, nontender, nondistended. No palpable masses or HSM. Bowel sounds present in all quadrants. No CVA tenderness bilaterally. MUSCULOSKELETAL: Full range of motion of all joints without discomfort. INTEGUMENTARY: No rash or other significant dermatologic conditions noted. NEUROLOGIC: Alert and oriented X 4 with normal affect. Normal strength and sensation in all 4 extremities. No focal neurologic deficits noted. Normal speech. Normal gait observed. ED COURSE AND MEDICAL DECISION MAKING: CC: Patient presenting with complaint of nausea and vomiting DIFFERENTIAL DIAGNOSIS: Includes, but not limited to cyclic vomiting syndrome, gastroparesis, dehydration, electrolyte abnormality, DKA, small bowel obstruction, appendicitis, gastroenteritis, pancreatitis, acute kidney injury, among others. INTERPRETATION OF LABS: Leukocytosis with left shift, mild anemia, normal platelets, hyponatremia and hypochloremia in the setting of significant hyperglycemia, elevated BUN and creatinine consistent with TAYLOR, elevated anion gap and low CO2 concerning for DKA. Beta hydroxybutyric acid is elevated. Hypomagnesemia with normal potassium and phosphorus levels. T bili is slightly elevated, otherwise liver enzymes and lipase are normal. UA shows 3+ glucose and 3+ ketones, negative for infection. EKG: Shows normal sinus rhythm with a rate of 96 bpm, incomplete RBBB, no ST or T wave abnormalities, no ectopy, no significant change when compared to previous EKG from 07/21/2018 by my interpretation. MEDICATION RECONCILIATION: I attest that I have personally reviewed the patient's current medication list. INITIAL VITAL SIGNS REVIEW: I reviewed the patient's initial vital signs and interpret them as follows: T: Afebrile; BP: Normotensive; HR: Tachycardic; RR: Within normal limits; Pulse Ox: Within normal limits on room air. Blood pressure screening: The patient was found to have normal blood pressure on screening and does not require follow-up for repeat blood pressure check. MDM SUMMARY: Patient was evaluated at bedside, history and physical exam performed. Cardiac monitoring: An order was placed for continuous cardiac monitoring. The monitor shows a rate of 112 bpm with sinus tachycardia rhythm. Patient is alert and oriented, in no acute distress, resting calmly in the stretcher. He does appear moderately dehydrated and pale. He is not diaphoretic. He is not actively vomiting, but complains of nausea. No abdominal tenderness or guarding on exam. No CVA tenderness. Review of the patient's chart noting his ED visit yesterday at which time there was no evidence of DKA on his labs, he was hydrated with IV fluids and treated with IV medications for his symptoms of nausea and vomiting. Orders were placed at bedside for labs, UA, IV fluid bolus x2 L for hydration, IV Reglan and Benadryl to treat nausea/vomiting, EKG to evaluate for tachycardia. Patient discussed with Dr. Byrd, who agrees with my assessment, plan, and disposition. Labs reviewed as above, notable for significant leukocytosis, marked hyperglycemia with refractory hyponatremia, as well as hypomagnesemia. Serum ketones are elevated as well as 3+ ketones in the urine anion gap is open with a low CO2, which is all concerning for DKA. I suspect the leukocytosis may be secondary to vomiting and dehydration, the patient has not had a fever or any other concerning evidence for infection. An insulin drip was ordered with a 7 unit bolus, the patient's own insulin pump remained in place until the insulin drip was started. I spoke on the phone with Dr. Peña, [facility] Hospitalist, who agrees to evaluate the patient for admission. Patient reassessed multiple times throughout ED stay, he has remained hemodynamically stable and reports that he is feeling somewhat better after the above treatments. He was updated on all results and plan for admission, he verbalized understanding and was agreeable to this plan. The patient has been hemodynamically stable during his ED stay, he is alert and oriented, and in no significant distress. I do not feel that he warrants ICU placement at this time. Patient was stable at time of admission. CRITICAL CARE NOTE: I have personally spent greater than 33 minutes of critical care time in the direct management of this patient. This includes bedside care, interpretation o f diagnostic studies, and testing, discussion with consultants, patient, and family members, and other required patient management activities. This 33 minutes is in excess of all separately billable procedures. The chart was completed utilizing [employer] Speech voice recognition software. Grammatical errors, random word insertions, pronoun errors, and incomplete sentences are an occasional consequence of this system due to software limitations, ambient noise, and hardware issues. Any formal questions or concerns about the content, text, or information contained within the body of this dictation should be directly addressed to the nurse practitioner for clarification. Past Med/Surg History Social History Preferred Language: Martiniquais Communication Ability: Effective Beliefs That Will Affect Care: None Current Living Situation: Parent Feels Safe at Home: Yes Smoking Status: Never smoker Tobacco Type: smokeless tobacco ; Hx Alcohol Use: Yes Alcohol type: beer Hx Substance Use: Yes substance use type: marijuana Substance Use Type Other:: history of iv drug use Allergies Allergies Allergy/AdvReac Type Severity Reaction Status Date / Time Cephalosporins Allergy Unknown Hives Verified 10/17/19 15:27 Sulfa (Sulfonamide Allergy Unknown Hives Verified 10/17/19 15:27 Antibiotics) azithromycin [From Zithromax] AdvReac Intermediate Hives Verified 10/17/19 15:27 Home Meds Home Medications Medication Instructions Recorded Confirmed methadone 44 mg PO QAM 05/10/18 10/17/19 Motilium 10 mg PO TID 06/08/19 10/17/19 insulin lispro [Humalog U-100 1 sliding scale dose CONTINUOUS 10/16/19 10/17/19 Insulin] SUBCUTANEOUS INFUSION DIRECTED ondansetron 4 mg PO Q6H PRN 10/16/19 10/17/19 promethazine 25 mg PO TID PRN 10/16/19 10/17/19 promethazine 25 mg MO Q6H PRN 10/16/19 10/17/19 Results & Data (ED) Vital Signs Vital Signs - 24 hr 10/17/19 15:05 10/17/19 15:51 10/17/19 16:45 Temperature 36.9 C Temperature Source Oral Pulse Rate 112 H Pulse Rate [Right Finger] 106 H 103 H Respiratory Rate 22 19 20 Respiratory Effort / Characteristics Non-Labored Spontaneous Respiratory Depth Normal Blood Pressure 108/66 Blood Pressure [Right Arm] 113/54 L 117/57 L Blood Pressure Mean 80 Blood Pressure Mean [Right Arm] 73 77 Blood Pressure Position Sitting Pulse Oximetry 99 100 99 Oxygen Delivery Method Room Air Sepsis Recent Fever Within 48 Hours No Sepsis Action Taken by Nursing No Action Required 10/17/19 17:28 10/17/19 18:29 Temperature Temperature Source Pulse Rate Pulse Rate [Right Finger] 105 H 104 H Respiratory Rate 19 19 Respiratory Effort / Characteristics Respiratory Depth Blood Pressure Blood Pressure [Right Arm] 101/46 L 98/42 L Blood Pressure Mean Blood Pressure Mean [Right Arm] 64 60 Blood Pressure Position Pulse Oximetry 97 97 Oxygen Delivery Method Sepsis Recent Fever Within 48 Hours Sepsis Action Taken by Nursing Laboratory Data Result diagrams: 10/17/19 15:32 10/17/19 15:32 Lab Results 10/17/19 10/17/19 10/17/19 Range/Units 15:32 15:32 15:40 WBC 23.85 H D (4.8-10.8) K/uL RBC 4.26 L (4.7-6.1) M/uL Hgb 12.3 L (14.0-18.0) g/dL Hct 38.2 L (42-52) % MCV 89.7 (80-100) fL MCH 28.9 (25-34) pg MCHC 32.2 (32-36) g/dL RDW Std Deviation 43.3 (36.4-46.3) fL RDW Coeff of Carlos 13.4 (11.5-14.5) % Plt Count 284 (130-400) K/uL MPV 11.1 H (7.4-10.4) fL Immature Gran % (Auto) 0.6 % Neut % (Auto) 83.6 % Lymph % (Auto) 5.4 % Shelby % (Auto) 10.3 % Eos % (Auto) 0.0 % Baso % (Auto) 0.1 % Immature Gran # (Auto) 0.14 H (0.00-0.02) K/uL Neut # (Auto) 19.95 H (1.4-6.5) K/uL Lymph # (Auto) 1.28 (1.2-3.4) K/uL Shelby # (Auto) 2.46 H (0.11-0.59) K/uL Eos # (Auto) 0.00 (0-0.5) K/uL Baso # (Auto) 0.02 (0-0.2) K/uL Toxic Vacuolation 3+ Sodium 130 L (136-145) mmol/L Potassium 4.6 (3.5-5.1) mmol/L Chloride 92 L (98-107) mmol/L Carbon Dioxide 16 L (21-32) mmol/L Anion Gap 22.0 H (3-11) BUN 25 H D (7-18) mg/dl Creatinine 1.83 H D (0.6-1.4) mg/dl Est Cr Clr Drug Dosing 68.5 ml/min Est GFR ( Amer) 59.0 Est GFR (Non-Af Amer) 50.9 BUN/Creatinine Ratio 13.8 (10-20) Glucose 710 H* (70-99) mg/dl POC Glucose (70-99) mg/dl Calcium 9.5 (8.5-10.1) mg/dl Phosphorus 4.0 (2.5-4.9) mg/dl Magnesium 1.5 L (1.8-2.4) mg/dl Total Bilirubin 1.1 H D (0.2-1) mg/dl AST 14 L (15-37) U/L ALT 19 (12-78) U/L Alkaline Phosphatase 87 (45-117) U/L Total Protein 7.6 (6.4-8.2) gm/dl Albumin 4.6 (3.4-5.0) gm/dl Globulin 3.0 (2.5-4.0) gm/dl Albumin/Globulin Ratio 1.5 (0.9-2) Lipase 26 L (73-393) U/L Beta-Hydroxybutyric Acd 53.66 H (0.2-2.81) mg/dl Urine Color Yellow Urine Appearance Clear (Clear) Urine pH 5.0 (4.5-7.5) Ur Specific [place] 1.029 (1.000-1.030) Urine Protein Negative (Negative) Urine Glucose (UA) 3+ H (Negative) Urine Ketones 3+ H (Negative) Urine Blood Negative (Negative) Urine Nitrite Negative (Negative) Urine Bilirubin Negative (Negative) Urine Urobilinogen Negative (Negative) Ur Leukocyte Esterase Negative (Negative) 10/17/19 10/17/19 Range/Units 17:04 18:07 WBC (4.8-10.8) K/uL RBC (4.7-6.1) M/uL Hgb (14.0-18.0) g/dL Hct (42-52) % MCV (80-100) fL MCH (25-34) pg MCHC (32-36) g/dL RDW Std Deviation (36.4-46.3) fL RDW Coeff of Carlos (11.5-14.5) % Plt Count (130-400) K/uL MPV (7.4-10.4) fL Immature Gran % (Auto) % Neut % (Auto) % Lymph % (Auto) % Shelby % (Auto) % Eos % (Auto) % Baso % (Auto) % Immature Gran # (Auto) (0.00-0.02) K/uL Neut # (Auto) (1.4-6.5) K/uL Lymph # (Auto) (1.2-3.4) K/uL Shelby # (Auto) (0.11-0.59) K/uL Eos # (Auto) (0-0.5) K/uL Baso # (Auto) (0-0.2) K/uL Toxic Vacuolation Sodium (136-145) mmol/L Potassium (3.5-5.1) mmol/L Chloride (98-107) mmol/L Carbon Dioxide (21-32) mmol/L Anion Gap (3-11) BUN (7-18) mg/dl Creatinine (0.6-1.4) mg/dl Est Cr Clr Drug Dosing ml/min Est GFR ( Amer) Est GFR (Non-Af Amer) BUN/Creatinine Ratio (10-20) Glucose (70-99) mg/dl POC Glucose > 600 H* 524 H* (70-99) mg/dl Calcium (8.5-10.1) mg/dl Phosphorus (2.5-4.9) mg/dl Magnesium (1.8-2.4) mg/dl Total Bilirubin (0.2-1) mg/dl AST (15-37) U/L ALT (12-78) U/L Alkaline Phosphatase (45-117) U/L Total Protein (6.4-8.2) gm/dl Albumin (3.4-5.0) gm/dl Globulin (2.5-4.0) gm/dl Albumin/Globulin Ratio (0.9-2) Lipase (73-393) U/L Beta-Hydroxybutyric Acd (0.2-2.81) mg/dl Urine Color Urine Appearance (Clear) Urine pH (4.5-7.5) Ur Specific [place] (1.000-1.030) Urine Protein (Negative) Urine Glucose (UA) (Negative) Urine Ketones (Negative) Urine Blood (Negative) Urine Nitrite (Negative) Urine Bilirubin (Negative) Urine Urobilinogen (Negative) Ur Leukocyte Esterase (Negative) Administered Medications Insulin Human Regular 250 (units/ Sodium Chloride) 250 mls @ 7 mls/hr IV .Q24H YUE; Protocol Stop: 11/16/19 16:44 Last Titration: 10/17/19 18:27 Dose: 8.4 units/hr, 8.4 mls/hr Documented by: [id number] Cosigned by: [id number] Admin: 10/17/19 17:02 Dose: 7 units/hr, 7 mls/hr Documented by: [id number] Cosigned by: [id number] Discontinued Medications Diphenhydramine HCl (Benadryl) 50 mg IV NOW STA Stop: 10/17/19 15:25 Last Admin: 10/17/19 15:52 Dose: 50 mg Documented by: [id number] Sodium Chloride (Nss 1000ml) 1,000 mls @ 999 mls/hr IV .Q1H1M YUE Stop: 10/17/19 17:30 Last Infusion: 10/17/19 17:48 Dose: 0 mls/hr Documented by: [id number] Admin: 10/17/19 17:47 Dose: 1,000 mls/hr Documented by: [id number] Infusion: 10/17/19 16:48 Dose: 0 mls/hr Documented by: [id number] Admin: 10/17/19 15:52 Dose: 999 mls/hr Documented by: [id number] Magnesium Sulfate/Dextrose (Magnesium Sulfate / D5w) 1 gm in 100 mls @ 100 mls/hr IV ONE ONE Stop: 10/17/19 18:00 Last Infusion: 10/17/19 18:30 Dose: 0 mls/hr Documented by: [id number] Admin: 10/17/19 17:19 Dose: 100 mls/hr Documented by: [id number] Insulin Human Regular (Novolin R Bolus From Bag) 7 units IV NOW STA Stop: 10/17/19 16:42 Last Admin: 10/17/19 17:02 Dose: 7 units Documented by: [id number] Cosigned by: [id number] Metoclopramide HCl (Reglan) 10 mg IV NOW STA Stop: 10/17/19 15:25 Last Admin: 10/17/19 15:52 Dose: 10 mg Documented by: [id number] Miscellaneous (Insulin Protocol Dka Goal Range) 1 ea N/A ONE ONE Stop: 10/17/19 16:35 Last Admin: 10/17/19 17:47 Dose: Not Given Documented by: [id number] Discharge Plan Visit Data Chief Complaint: Vomiting Stated Complaint: NAUSEA, VOMITING ED Provider: Shine Byrd ED Midlevel Provider: Kinza Clark Discharge Problem: DKA, type 1, Hypomagnesemia, Leukocytosis Forms Stand Alone Forms: [facility] Prescriptions Prescriptions: No Action methadone 10 mg/5 mL Solution 44 mg PO QAM RF: 0 Motilium 10 mg PO TID RF: 0 insulin lispro [Humalog U-100 Insulin] 100 unit/mL Solution 1 sliding scale dose continuous subcutaneous infusion DIRECTED RF: 0 promethazine 25 mg suppository 25 mg MO Q6H PRN (Reason: Nausea) RF: 0 promethazine 25 mg tablet 25 mg PO TID PRN (Reason: Nausea And Vomiting) RF: 0 ondansetron 4 mg tablet,disintegrating 4 mg PO Q6H PRN (Reason: Nausea And Vomiting) RF: 0 Referrals Referrals: Oneil Tinajero MD [Primary Care Provider] - Discharge Problem: DKA, type 1 Qualifiers: Diabetes mellitus complication detail: without coma Qualified Code(s): E10.10 - Type 1 diabetes mellitus with ketoacidosis without coma Leukocytosis Qualifiers: Leukocytosis type: unspecified Qualified Code(s): D72.829 - Elevated white blood cell count, unspecified
[2019-10-17] MEDS ORDERED: DiphenhydrAMINE HCL 50 MG/ML VIAL IV STA (15:24)
[2019-10-17] MEDS ORDERED: METOCLOPRAMIDE HCL INJ 5 MG/ML 2 ML VIAL IV STA (15:24)
[2019-10-17] MEDS: SODIUM CHLORIDE 0.9% 1000ML 1,000 ML IV SCH ×2 (15:52→17:47)
[2019-10-17 15:58] LABS: Appearance Urine Clear (Clear); Bilirubin Urine Negative (Negative); Blood Urine Negative (Negative); Color Urine Yellow; Glucose Urine UA 3+ (Negative); Ketones Urine 3+ (Negative); Leukocyte Esterase Urine Negative (Negative); Nitrite Urine Negative (Negative); Protein Urine Negative (Negative); Specific Gravity Urine 1.029 (1.000-1.030); Urobilinogen Urine Negative (Negative)
[2019-10-17 16:13] LABS: Hematocrit (blood only) 38.2 % (42-52); Hemoglobin 12.3 g/dL (14.0-18.0); Mean Corpuscular Hemoglobin 28.9 pg (25-34); Mean Corpuscular Hgb Conc 32.2 g/dL (32-36); Mean Corpuscular Volume 89.7 fL (80-100); Mean Platelet Volume 11.1 fL (7.4-10.4); Platelet Count 284 K/uL (130-400); RDW Coefficient of Variation 13.4 % (11.5-14.5); RDW Standard Deviation 43.3 fL (36.4-46.3); Red Blood Count 4.26 M/uL (4.7-6.1); White Blood Count 23.85 K/uL (4.8-10.8)
[2019-10-17 16:31] LABS: Albumin Globulin Ratio 1.5 (0.9-2); Albumin Level 4.6 gm/dl (3.4-5.0); Bilirubin,Total 1.1 mg/dl (0.2-1); Potassium 4.6 mmol/L (3.5-5.1)
[2019-10-17] MEDS ORDERED: GLUCOSE 10 TABS/TUBE PO PRN (16:34)
[2019-10-17] MEDS ORDERED: GLUCOSE 40% GEL 15 GM TUBE PO PRN (16:34)
[2019-10-17] MEDS ORDERED: GLUCAGON FOR INJ 1 MG VIAL SQ PRN (16:34)
[2019-10-17] MEDS ORDERED: DEXTROSE 50% 50 ML SYRINGE IV PRN (16:34)
[2019-10-17] MEDS ORDERED: CARBOHYDRATES FOR HYPOGLYCEMIA PO PRN (16:34)
[2019-10-17] MEDS ORDERED: DKA GOAL RANGE 150-250 mg/dl ONE (16:34)
[2019-10-17 16:35] LABS: Calcium 9.5 mg/dl (8.5-10.1); Creatinine Clr Calc Pharmacy 68.5 ml/min; Est GFR (Non-African American) 50.9; Total Protein 7.6 gm/dl (6.4-8.2)
[2019-10-17 16:36] LABS: BUN Creatinine Ratio 13.8 (10-20)
[2019-10-17 16:40] LABS: Basophils # (auto) 0.02 K/uL (0-0.2); Basophils % (auto) 0.1 %; Immature Granulocytes # (auto) 0.14 K/uL (0.00-0.02); Immature Granulocytes % (auto) 0.6 %; Lymphocytes # (auto) 1.28 K/uL (1.2-3.4); Lymphocytes % (auto) 5.4 %; Monocytes # (auto) 2.46 K/uL (0.11-0.59); Monocytes % (auto) 10.3 %; Neutrophils # (auto) 19.95 K/uL (1.4-6.5); Neutrophils % (auto) 83.6 %
[2019-10-17 16:41] LABS: Toxic Vacuolation 3+
[2019-10-17] MEDS ORDERED: NovoLIN-R BOLUS FROM BAG IV STA (16:41)
[2019-10-17 16:44] LABS: Beta-Hydroxybutyrate 53.66 mg/dl (0.2-2.81)
[2019-10-17] MEDS ORDERED: INSULIN REGULAR 250 UNITS in SODIUM CHLORIDE 0.9% 247.5 ML IV SCH (16:45)
[2019-10-17 16:56] LABS: Magnesium 1.5 mg/dl (1.8-2.4)
[2019-10-17] MEDS ORDERED: MAGNESIUM SULFATE / D5W 1 GM/100 ML BAG IV ONE (17:01)
--- NOTE | 2019-10-17 17:11 | Electrocardiogram Report ---
Test Reason : Blood Pressure : / mmHG Vent. Rate : 096 BPM Atrial Rate : 096 BPM P-R Int : 148 ms QRS Dur : 110 ms QT Int : 362 ms P-R-T Axes : 080 073 077 degrees QTc Int : 457 ms Normal sinus rhythm Possible Left atrial enlargement Incomplete right bundle branch block Borderline ECG When compared with ECG of 21-JUL-2018 21:12, No significant change was found Confirmed by Fabian Burciaga ([id number]) on 10/17/2019 5:10:36 PM Referred By: REFERRED SELF Confirmed By:Mikey Burciaga
--- NOTE | 2019-10-17 17:49 | History & Physical Report ---
Date of Service October 17, 2019 Assessment & Plan (1) DKA, type 1: By exam and laboratory work, patient is in DKA. He was started on insulin drip in the emergency room and this will need to be continued as per protocol. Will discontinue the insulin pump. Will start patient on clear liquids as tolerated. Continue Zofran and Compazine as needed for his ongoing nausea with vomiting. Eventual transition back to his insulin pump once his anion gap is closed. (2) Hypomagnesemia: Patient was given 1 g of magnesium IV in the emergency room, will check labs in the morning. (3) TAYLOR (acute kidney injury): This likely secondary to significant volume contraction from his DKA and ongoing nausea with vomiting. Will hydrate with normal saline + 20mEq KCl, will need to monitor sodium as well as potassium levels and replete as needed. (4) Leukocytosis: Secondary to acute DKA. Patient has no other signs of infection. Will monitor for fever, diarrhea, abdominal pain, or other symptoms. (5) IV drug abuse: Patient tells me he has not used IV heroin in 1.5-2 years. He is currently receiving methadone at [facility]. He is on 44 mg every morning. He did tell the ER that he was recently given 14 doses by the methadone clinic due to limited hours secondary to ongoing quarantine. We will continue to offer the patient 44 mg in the morning once his dose can be confirmed, if he does have ongoing of vomiting may need to consider low-dose IV narcotics until he is once again able to take his medication. Monitor for signs and symptoms of withdrawal. 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 Patient is a somewhat difficult historian as he only gives 1 word answers and does not elaborate. Patient started having symptoms yesterday. This was nausea with vomiting, cons istent with his previous cyclical vomiting symptoms. He was unable to hold down any food or liquids. He took a his morning methadone but threw this up as well. Patient did not have any fever or chills nor did he have any other infectious symptoms. Per records, patient was in the emergency room on 10/15 and improved after some IV hydration and Zofran/Compazine. Patient was discharged from the E and returned home. He tells me that his symptoms returned a few hours later and persisted into the next morning. He has been having nausea and vomiting ever since and return to the emergency room for further evaluation. By lab work, the patient is now in DKA and is significantly hyperglycemic. Labs did seem more benign yesterday at the time of his first evaluation. Patient tells me he has been on his insulin pump the entire time. Allergies Allergy/AdvReac Type Severity Reaction Status Date / Time Cephalosporins Allergy Unknown Hives Verified 10/17/19 15:27 Sulfa (Sulfonamide Allergy Unknown Hives Verified 10/17/19 15:27 Antibiotics) azithromycin [From Zithromax] AdvReac Intermediate Hives Verified 10/17/19 15:27 Home Medications Home Medications Medication Instructions Recorded Confirmed Type methadone 44 mg PO QAM 05/10/18 10/17/19 History Motilium 10 mg PO TID 06/08/19 10/17/19 History insulin lispro [Humalog U-100 1 sliding scale dose CONTINUOUS 10/16/19 10/17/19 History Insulin] SUBCUTANEOUS INFUSION DIRECTED ondansetron 4 mg PO Q6H PRN 10/16/19 10/17/19 History promethazine 25 mg PO TID PRN 10/16/19 10/17/19 History promethazine 25 mg [place] Q6H PRN 10/16/19 10/17/19 History Past Med/Surg History Social History Preferred Language: Polish Communication Ability: Effective Beliefs That Will Affect Care: None Current Living Situation: Parent Feels Safe at Home: Yes Smoking Status: Never smoker Tobacco Type: smokeless tobacco ; Hx Alcohol Use: Yes Alcohol type: beer Hx Substance Use: Yes substance use type: marijuana Substance Use Type Other:: history of iv drug use Review of Systems Constitutional: no fever, no chills, no weakness, no weight loss and no weight gain Eyes: as per Subjective / HPI Respiratory: no cough, no chest congestion, no dyspnea and no dyspnea on exertion Cardiovascular: no chest pain, no orthopnea, no palpitations, no lightheadedness and no edema Gastrointestinal: + nausea and + vomiting; no abdominal pain, no coffee ground emesis, no constipation and no diarrhea/loose stools Musculoskeletal: no back pain, no neck pain, no joint pain, no stiffness and no myalgia Integumentary: no rash Neurologic: no gait abnormality, no unsteadiness, no falls and no generalized weakness Physical Exam Constitutional: comfortable; no acute distress and + uncooperative ENMT: Mucous membranes very dry Neck: trachea midline, no thyromegaly Respiratory: normal respiratory effort Auscultation: lungs clear to auscultation bilaterally; no crackles, no rales, no rhonchi and no wheezes Very limited, could not sit up secondary to nausea Cardiovascular: Rate/Rhythm: regular rate and regular rhythm Heart Sounds: normal S1 (Soft S1) and normal S2 Gastrointestinal (Abdomen): Inspection/Auscultation: abdomen normal to inspection Percussion/Palpation: abdomen soft; abdomen nontender, no guarding, abdomen not rigid and no hepatosplenomegaly Skin: no rashes, warm and dry Results & Data Results & Data ([facility]) Vital Signs (Past 12 Hours) Vital Signs Temp Pulse Pulse Resp BP BP Pulse Ox 10/17/19 17:28 105 H 19 101/46 L 97 10/17/19 16:45 103 H 20 117/57 L 99 10/17/19 15:51 106 H 19 113/54 L 100 10/17/19 15:05 36.9 C 112 H 22 108/66 99 Laboratory Results WBCs of 23.8, hemoglobin 12.3, hematocrit 38.2, platelet 284. There is a left shift. Sodium 130, potassium 4.6, chloride 92, CO2 16, BUN of 25 and creatinine 1.83, both very elevated from baseline of 9/0.99. Anion gap is 22. Glucose is 710. Magnesium is 1.5. Bilirubin is 1.1. AST is 14 with an ALT of 19. Alk phos is 87. Lipase is 26. Beta hydroxybutyric acid is 53.66. UA is 3+ glucose 3+ ketones otherwise negative. Diagnostic Findings No imaging was performed this presentation PG Care Time/CCT Total # of Minutes Spent Total Time Spent with Patient: Total time spent is greater than 50% in coordination of care (as documented) at patient's floor/unit and/or counseling patient: Coding Level of Care Code 62213 Initial Inpt Care Lvl 3 Diagnoses DKA, type 1 E10.10 Diabetes mellitus complication detail: without coma Hypomagnesemia E83.42 TAYLOR (acute kidney injury) N17.9 Leukocytosis D72.829 Leukocytosis type: unspecified IV drug abuse F19.10 (1) Leukocytosis Leukocytosis type: unspecified Qualified Code(s): D72.829 - Elevated white blood cell count, unspecified (2) DKA, type 1 Diabetes mellitus complication detail: without coma Qualified Code(s): E10.10 - Type 1 diabetes mellitus with ketoacidosis without coma
[2019-10-17] MEDS ORDERED: PROCHLORPERAZINE 5 MG in SYRINGE 4 ML IV PRN (20:26)
[2019-10-17] MEDS: NSS + 20MEQ KCL 20 MEQ/1,000 ML BAG IV SCH (21:07)
[2019-10-17] MEDS: HEPARIN SOD 5,000 UNIT/0.5 ML VIAL SQ SCH (21:07)
[2019-10-17 21:23] LABS: BUN Creatinine Ratio 17.5 (10-20); Calcium 9.2 mg/dl (8.5-10.1); Creatinine Clr Calc Pharmacy 86.3 ml/min; Est GFR (African American) 78.1; Est GFR (Non-African American) 67.4
[2019-10-17 21:33] LABS: Beta-Hydroxybutyrate 19.34 mg/dl (0.2-2.81)
[2019-10-17 22:05] LABS: Potassium 3.5 mmol/L (3.5-5.1)
[2019-10-18 02:47] LABS: BUN Creatinine Ratio 21.2 (10-20); Calcium 8.8 mg/dl (8.5-10.1); Est GFR (African American) 114.1; Est GFR (Non-African American) 98.4; Potassium 3.9 mmol/L (3.5-5.1)
[2019-10-18] MEDS: ONDANSETRON INJ 2 MG/ML 2 ML VIAL IV PRN ×2 (04:06→21:30)
[2019-10-18] MEDS: NSS + 20MEQ KCL 20 MEQ/1,000 ML BAG IV SCH ×3 (05:23→21:36)
[2019-10-18] MEDS: HEPARIN SOD 5,000 UNIT/0.5 ML VIAL SQ SCH ×3 (05:27→21:32)
--- NOTE | 2019-10-18 07:02 | Communication Note ---
Date of Service: October 18, 2019 Patient with gap closed and BSG just over 200 last night. Planned ot start his basal insulin rate on his insulin pump and titrate down on the drip. Unfort unatley his insulin pump needs to have his tubing replaced. After discussion with patient and pharmacy decided to continue his insulin drip at his home basal insulin rate of 33 units per day or 1.4 units per hour until someone from home can bring him replacement tubing.
[2019-10-18] MEDS: METHADONE ORAL SOLN 2 MG/ML PO SCH (08:25)
[2019-10-18] MEDS: METHADONE PO SCH (08:25)
[2019-10-18 08:31] LABS: Basophils # (auto) 0.01 K/uL (0-0.2); Basophils % (auto) 0.1 %; Eosinophils # (auto) 0.02 K/uL (0-0.5); Eosinophils % (auto) 0.1 %; Hematocrit (blood only) 32.9 % (42-52); Hemoglobin 10.8 g/dL (14.0-18.0); Immature Granulocytes # (auto) 0.05 K/uL (0.00-0.02); Immature Granulocytes % (auto) 0.3 %; Lymphocytes # (auto) 2.14 K/uL (1.2-3.4); Mean Corpuscular Hgb Conc 32.8 g/dL (32-36); Mean Corpuscular Volume 88.2 fL (80-100); Mean Platelet Volume 10.1 fL (7.4-10.4); Monocytes # (auto) 1.24 K/uL (0.11-0.59); Monocytes % (auto) 8.1 %; Neutrophils # (auto) 11.78 K/uL (1.4-6.5); Neutrophils % (auto) 77.4 %; Platelet Count 192 K/uL (130-400); RDW Coefficient of Variation 13.4 % (11.5-14.5); RDW Standard Deviation 43.8 fL (36.4-46.3); Red Blood Count 3.73 M/uL (4.7-6.1); White Blood Count 15.24 K/uL (4.8-10.8)
[2019-10-18 08:50] LABS: BUN Creatinine Ratio 21.7 (10-20); Calcium 8.7 mg/dl (8.5-10.1); Creatinine Clr Calc Pharmacy 116.4 ml/min; Est GFR (African American) 109.1; Est GFR (Non-African American) 94.1
[2019-10-18] MEDS ORDERED: PHARMACY GLYCEMIC MGMT CONSULT PRN (10:59)
--- NOTE | 2019-10-18 11:40 | Hospitalist Progress Note ---
Date of Service October 18, 2019 Assessment & Plan (1) DKA, type 1: By exam and laboratory work, patient is in DKA. No infectious etiology suspected. He does have gastroparesis which tends to exacerbate his into getting DKA. Anion gap is now closed and blood sugars are under much better control Converted insulin drip to basal and bolus insulin today-glycemic pharmacy consult in place His insulin pump is off and he cannot put it back on here as he does not have the appropriate tubing Advance diet as tolerated -Follow BMP, magnesium, phosphorus twice daily and replace as needed -Continue normal saline +20 mEq KCl for hydration -Check hemoglobin A1c in the morning -Needs to get reestablished with endocrinology as an outpatient (2) Vomiting: Secondary to DKA and gastroparesis Improving -Continue Compazine and Zofran as needed -Continue IV fluids for hydration -Continue to advance diet as tolerated (3) Hypomagnesemia: Replaced and now resolved Follow magnesium levels (4) TAYLOR (acute kidney injury): This likely secondary to significant volume contraction from his DKA and ongoing nausea with vomiting. -Now much improved with hydration and control blood sugars Follow BMP (5) Leukocytosis: Secondary to acute DKA and stress response from intractable nausea/vomiting. Patient has no other signs of infection. Will monitor for fever, diarrhea, abdominal pain, or other symptoms. Improving today with WBC count down to 15 from 23 -Follow CBC (6) IV drug abuse: Patient tells me he has not used IV heroin in 1.5-2 years. He is currently receiving methadone at [facility]. He is on 44 mg every morning. He did tell the ER that he was recently given 14 doses by the methadone clinic due to limited hours secondary to ongoing quarantine. -We will continue to offer the patient 44 mg in the morning Monitor for signs and symptoms of withdrawal. (7) Anemia: Hemoglobin with mild drop from 12-10.3 likely hemo-dilutional, is normocytic Likely with some anemia of chronic disease -Follow CBC No obvious bleeding (8) DVT prophylaxis: Heparin SQ Disposition-remain on PCU, plan for discharged home likely tomorrow once able to tolerate p.o. Admission and Anticipated Discharge Date Admission Date: October 17, 2019 Anticipated date of discharge: 10/19/19 Subjective Patient reports feeling a little better by midday today. Still with some nausea requiring antiemetics, however feels like he is probably not going to throw up anymore. He has not eaten any food yet today and would like to remain on a clear liquids diet to try some broth for dinner. He denies any abdominal pain. Denies chest pains or shortness of breath. He reports this is pretty typical for him when he gets in DKA and it exacerbates his nausea and vomiting from his gastroparesis. Denies any recent cold symptoms or fever/chills/sweats. No headache or sore throat, no cough. No diarrhea. Telemetry with normal sinus rhythm with rates in the 70s to 90s I discussed the case with the glycemic pharmacist. Patient reports he has not been to an registered art therapist in a very long time and cannot remember the last time he had his hemoglobin A1c checked. His primary care physician has been prescribing his insulin for his pump at home. He does not have any of the insulin pump tubing with him to reconnect it. Review of Systems Review of Systems: All systems reviewed & are unremarkable except as noted in HPI & below Physical Exam Constitutional: + ill appearing and average body habitus; no acute distress Eyes: + anicteric sclerae; no conjunctival abnormality ENMT: external ear and nose normal, oropharynx normal Neck: trachea midline, no thyromegaly Respiratory: normal respiratory effort, lungs clear to auscultation Cardiovascular: RRR, no murmur, no edema Chest (Breasts): Chest: normal inspection of chest Gastrointestinal (Abdomen): normal bowel sounds, soft, nontender, no hepatosplenomegaly Musculoskeletal: Extremities: extremities normal to inspection; no cyanosis and no clubbing Skin: no rashes, warm and dry Neurologic: moves all extremities and awake; no focal motor deficits Psychiatric: Orientation: alert and oriented x 3 Affect: + flat affect Lymphatic: no lymphedema Results & Data Results & Data ([facility]) Vital Signs (Past 12 Hours) Vital Signs Temp Pulse Resp BP BP Pulse Ox 10/18/19 07:54 37.0 C 94 H 18 109/64 94 10/18/19 04:00 37 C 90 16 109/58 L 97 10/18/19 00:06 36.6 C 80 21 146/83 H 96 Laboratory Results 10/18/19 10/18/19 10/18/19 Range/Units 16:23 15:48 11:45 WBC (4.8-10.8) K/uL RBC (4.7-6.1) M/uL Hgb (14.0-18.0) g/dL Hct (42-52) % MCV (80-100) fL MCH (25-34) pg MCHC (32-36) g/dL RDW Std Deviation (36.4-46.3) fL RDW Coeff of Carlos (11.5-14.5) % Plt Count (130-400) K/uL MPV (7.4-10.4) fL Immature Gran % (Auto) % Neut % (Auto) % Lymph % (Auto) % Edmunds % (Auto) % Eos % (Auto) % Baso % (Auto) % Immature Gran # (Auto) (0.00-0.02) K/uL Neut # (Auto) (1.4-6.5) K/uL Lymph # (Auto) (1.2-3.4) K/uL Edmunds # (Auto) (0.11-0.59) K/uL Eos # (Auto) (0-0.5) K/uL Baso # (Auto) (0-0.2) K/uL Sodium 135 L (136-145) mmol/L Potassium 4.2 (3.5-5.1) mmol/L Chloride 111 H (98-107) mmol/L Carbon Dioxide 24 (21-32) mmol/L Anion Gap 0 L (3-11) BUN 18 (7-18) mg/dl Creatinine 0.99 (0.6-1.4) mg/dl Est Cr Clr Drug Dosing 129.3 ml/min Est GFR ( Amer) 123.9 Est GFR (Non-Af Amer) 106.9 BUN/Creatinine Ratio 18.3 (10-20) Glucose 116 H (70-99) mg/dl POC Glucose 119 H 128 H (70-99) mg/dl Calcium 8.5 (8.5-10.1) mg/dl Phosphorus 3.1 (2.5-4.9) mg/dl Magnesium 1.8 (1.8-2.4) mg/dl Beta-Hydroxybutyric Acd (0.2-2.81) mg/dl 10/18/19 10/18/19 10/18/19 Range/Units 09:28 08:14 08:14 WBC 15.24 H (4.8-10.8) K/uL RBC 3.73 L (4.7-6.1) M/uL Hgb 10.8 L (14.0-18.0) g/dL Hct 32.9 L (42-52) % MCV 88.2 (80-100) fL MCH 29.0 (25-34) pg MCHC 32.8 (32-36) g/dL RDW Std Deviation 43.8 (36.4-46.3) fL RDW Coeff of Carlos 13.4 (11.5-14.5) % Plt Count 192 (130-400) K/uL MPV 10.1 (7.4-10.4) fL Immature Gran % (Auto) 0.3 % Neut % (Auto) 77.4 % Lymph % (Auto) 14.0 % Edmunds % (Auto) 8.1 % Eos % (Auto) 0.1 % Baso % (Auto) 0.1 % Immature Gran # (Auto) 0.05 H (0.00-0.02) K/uL Neut # (Auto) 11.78 H (1.4-6.5) K/uL Lymph # (Auto) 2.14 (1.2-3.4) K/uL Edmunds # (Auto) 1.24 H (0.11-0.59) K/uL Eos # (Auto) 0.02 (0-0.5) K/uL Baso # (Auto) 0.01 (0-0.2) K/uL Sodium 137 (136-145) mmol/L Potassium 4.0 (3.5-5.1) mmol/L Chloride 105 (98-107) mmol/L Carbon Dioxide 24 (21-32) mmol/L Anion Gap 8.0 (3-11) BUN 24 H (7-18) mg/dl Creatinine 1.10 (0.6-1.4) mg/dl Est Cr Clr Drug Dosing 116.4 ml/min Est GFR ( Amer) 109.1 Est GFR (Non-Af Amer) 94.1 BUN/Creatinine Ratio 21.7 H (10-20) Glucose 167 H (70-99) mg/dl POC Glucose 156 H (70-99) mg/dl Calcium 8.7 (8.5-10.1) mg/dl Phosphorus (2.5-4.9) mg/dl Magnesium 2.0 (1.8-2.4) mg/dl Beta-Hydroxybutyric Acd (0.2-2.81) mg/dl 10/18/19 10/18/19 10/18/19 Range/Units 06:05 04:26 03:00 WBC (4.8-10.8) K/uL RBC (4.7-6.1) M/uL Hgb (14.0-18.0) g/dL Hct (42-52) % MCV (80-100) fL MCH (25-34) pg MCHC (32-36) g/dL RDW Std Deviation (36.4-46.3) fL RDW Coeff of Carlos (11.5-14.5) % Plt Count (130-400) K/uL MPV (7.4-10.4) fL Immature Gran % (Auto) % Neut % (Auto) % Lymph % (Auto) % Edmunds % (Auto) % Eos % (Auto) % Baso % (Auto) % Immature Gran # (Auto) (0.00-0.02) K/uL Neut # (Auto) (1.4-6.5) K/uL Lymph # (Auto) (1.2-3.4) K/uL Edmunds # (Auto) (0.11-0.59) K/uL Eos # (Auto) (0-0.5) K/uL Baso # (Auto) (0-0.2) K/uL Sodium (136-145) mmol/L Potassium (3.5-5.1) mmol/L Chloride (98-107) mmol/L Carbon Dioxide (21-32) mmol/L Anion Gap (3-11) BUN (7-18) mg/dl Creatinine (0.6-1.4) mg/dl Est Cr Clr Drug Dosing ml/min Est GFR ( Amer) Est GFR (Non-Af Amer) BUN/Creatinine Ratio (10-20) Glucose (70-99) mg/dl POC Glucose 184 H 211 H 202 H (70-99) mg/dl Calcium (8.5-10.1) mg/dl Phosphorus (2.5-4.9) mg/dl Magnesium (1.8-2.4) mg/dl Beta-Hydroxybutyric Acd (0.2-2.81) mg/dl 10/18/19 10/18/19 10/18/19 Range/Units 02:18 01:52 01:05 WBC (4.8-10.8) K/uL RBC (4.7-6.1) M/uL Hgb (14.0-18.0) g/dL Hct (42-52) % MCV (80-100) fL MCH (25-34) pg MCHC (32-36) g/dL RDW Std Deviation (36.4-46.3) fL RDW Coeff of Carlos (11.5-14.5) % Plt Count (130-400) K/uL MPV (7.4-10.4) fL Immature Gran % (Auto) % Neut % (Auto) % Lymph % (Auto) % Edmunds % (Auto) % Eos % (Auto) % Baso % (Auto) % Immature Gran # (Auto) (0.00-0.02) K/uL Neut # (Auto) (1.4-6.5) K/uL Lymph # (Auto) (1.2-3.4) K/uL Edmunds # (Auto) (0.11-0.59) K/uL Eos # (Auto) (0-0.5) K/uL Baso # (Auto) (0-0.2) K/uL Sodium 136 (136-145) mmol/L Potassium 3.9 (3.5-5.1) mmol/L Chloride 108 H (98-107) mmol/L Carbon Dioxide 23 (21-32) mmol/L Anion Gap 5.0 (3-11) BUN 22 H (7-18) mg/dl Creatinine 1.06 (0.6-1.4) mg/dl Est Cr Clr Drug Dosing 118.0 ml/min Est GFR ( Amer) 114.1 Est GFR (Non-Af Amer) 98.4 BUN/Creatinine Ratio 21.2 H (10-20) Glucose 163 H (70-99) mg/dl POC Glucose 116 H 112 H (70-99) mg/dl Calcium 8.8 (8.5-10.1) mg/dl Phosphorus (2.5-4.9) mg/dl Magnesium (1.8-2.4) mg/dl Beta-Hydroxybutyric Acd (0.2-2.81) mg/dl 10/18/19 10/18/19 10/17/19 Range/Units 01:02 00:00 23:12 WBC (4.8-10.8) K/uL RBC (4.7-6.1) M/uL Hgb (14.0-18.0) g/dL Hct (42-52) % MCV (80-100) fL MCH (25-34) pg MCHC (32-36) g/dL RDW Std Deviation (36.4-46.3) fL RDW Coeff of Carlos (11.5-14.5) % Plt Count (130-400) K/uL MPV (7.4-10.4) fL Immature Gran % (Auto) % Neut % (Auto) % Lymph % (Auto) % Edmunds % (Auto) % Eos % (Auto) % Baso % (Auto) % Immature Gran # (Auto) (0.00-0.02) K/uL Neut # (Auto) (1.4-6.5) K/uL Lymph # (Auto) (1.2-3.4) K/uL Edmunds # (Auto) (0.11-0.59) K/uL Eos # (Auto) (0-0.5) K/uL Baso # (Auto) (0-0.2) K/uL Sodium (136-145) mmol/L Potassium (3.5-5.1) mmol/L Chloride (98-107) mmol/L Carbon Dioxide (21-32) mmol/L Anion Gap (3-11) BUN (7-18) mg/dl Creatinine (0.6-1.4) mg/dl Est Cr Clr Drug Dosing ml/min Est GFR ( Amer) Est GFR (Non-Af Amer) BUN/Creatinine Ratio (10-20) Glucose (70-99) mg/dl POC Glucose > 600 H* 180 H 206 H (70-99) mg/dl Calcium (8.5-10.1) mg/dl Phosphorus (2.5-4.9) mg/dl Magnesium (1.8-2.4) mg/dl Beta-Hydroxybutyric Acd (0.2-2.81) mg/dl 10/17/19 10/17/19 10/17/19 Range/Units 22:08 21:12 20:44 WBC (4.8-10.8) K/uL RBC (4.7-6.1) M/uL Hgb (14.0-18.0) g/dL Hct (42-52) % MCV (80-100) fL MCH (25-34) pg MCHC (32-36) g/dL RDW Std Deviation (36.4-46.3) fL RDW Coeff of Carlos (11.5-14.5) % Plt Count (130-400) K/uL MPV (7.4-10.4) fL Immature Gran % (Auto) % Neut % (Auto) % Lymph % (Auto) % Edmunds % (Auto) % Eos % (Auto) % Baso % (Auto) % Immature Gran # (Auto) (0.00-0.02) K/uL Neut # (Auto) (1.4-6.5) K/uL Lymph # (Auto) (1.2-3.4) K/uL Edmunds # (Auto) (0.11-0.59) K/uL Eos # (Auto) (0-0.5) K/uL Baso # (Auto) (0-0.2) K/uL Sodium 137 D (136-145) mmol/L Potassium 3.5 D (3.5-5.1) mmol/L Chloride 106 (98-107) mmol/L Carbon Dioxide 23 (21-32) mmol/L Anion Gap 8.0 (3-11) BUN 25 H (7-18) mg/dl Creatinine 1.45 H D (0.6-1.4) mg/dl Est Cr Clr Drug Dosing 86.3 ml/min Est GFR ( Amer) 78.1 Est GFR (Non-Af Amer) 67.4 BUN/Creatinine Ratio 17.5 (10-20) Glucose 359 H* (70-99) mg/dl POC Glucose 259 H 458 H* (70-99) mg/dl Calcium 9.2 (8.5-10.1) mg/dl Phosphorus (2.5-4.9) mg/dl Magnesium (1.8-2.4) mg/dl Beta-Hydroxybutyric Acd 19.34 H (0.2-2.81) mg/dl 10/17/19 Range/Units 20:09 WBC (4.8-10.8) K/uL RBC (4.7-6.1) M/uL Hgb (14.0-18.0) g/dL Hct (42-52) % MCV (80-100) fL MCH (25-34) pg MCHC (32-36) g/dL RDW Std Deviation (36.4-46.3) fL RDW Coeff of Carlos (11.5-14.5) % Plt Count (130-400) K/uL MPV (7.4-10.4) fL Immature Gran % (Auto) % Neut % (Auto) % Lymph % (Auto) % Edmunds % (Auto) % Eos % (Auto) % Baso % (Auto) % Immature Gran # (Auto) (0.00-0.02) K/uL Neut # (Auto) (1.4-6.5) K/uL Lymph # (Auto) (1.2-3.4) K/uL Edmunds # (Auto) (0.11-0.59) K/uL Eos # (Auto) (0-0.5) K/uL Baso # (Auto) (0-0.2) K/uL Sodium (136-145) mmol/L Potassium (3.5-5.1) mmol/L Chloride (98-107) mmol/L Carbon Dioxide (21-32) mmol/L Anion Gap (3-11) BUN (7-18) mg/dl Creatinine (0.6-1.4) mg/dl Est Cr Clr Drug Dosing ml/min Est GFR ( Amer) Est GFR (Non-Af Amer) BUN/Creatinine Ratio (10-20) Glucose (70-99) mg/dl POC Glucose 343 H* (70-99) mg/dl Calcium (8.5-10.1) mg/dl Phosphorus (2.5-4.9) mg/dl Magnesium (1.8-2.4) mg/dl Beta-Hydroxybutyric Acd (0.2-2.81) mg/dl PG Care Time/CCT Total # of Minutes Spent Total Time Spent with Patient: Total time spent is greater than 50% in coordination of care (as documented) at patient's floor/unit and/or counseling patient: Coding Level of Care Code 32154 Subseq Hosp Care Lvl 3 Diagnoses DKA, type 1 E10.10 Diabetes mellitus complication detail: without coma Vomiting R11.10 Nausea presence: unspecified Vomiting Intractability: unspecified Vomiting type: unspecified Hypomagnesemia E83.42 TAYLOR (acute kidney injury) N17.9 Leukocytosis D72.829 Leukocytosis type: unspecified IV drug abuse F19.10 Anemia D64.9 DVT prophylaxis Z29.9 (1) Leukocytosis Leukocytosis type: unspecified Qualified Code(s): D72.829 - Elevated white blood cell count, unspecified (2) DKA, type 1 Diabetes mellitus complication detail: without coma Qualified Code(s): E10.10 - Type 1 diabetes mellitus with ketoacidosis without coma (3) Vomiting Nausea presence: unspecified Vomiting Intractability: unspecified Vomiting type: unspecified Qualified Code(s): R11.10 - Vomiting, unspecified
--- NOTE | 2019-10-18 11:52 | Pharmacy Report ---
Pharmacy Glycemic Short Note 2 - Date of Service October 18, 2019 - Glycemic Short BSG Results (Last 24 hours): 10/17/19 10/17/19 10/17/19 15:32 17:04 18:07 Glucose 710 H* POC Glucose > 600 H* 524 H* 10/17/19 10/17/19 10/17/19 19:08 20:09 20:44 Glucose 359 H* POC Glucose 435 H* 343 H* 10/17/19 10/17/19 10/17/19 21:12 22:08 23:12 Glucose POC Glucose 458 H* 259 H 206 H 10/18/19 10/18/19 10/18/19 00:00 01:02 01:05 Glucose POC Glucose 180 H > 600 H* 112 H 10/18/19 10/18/19 10/18/19 01:52 02:18 03:00 Glucose 163 H POC Glucose 116 H 202 H 10/18/19 10/18/19 10/18/19 04:26 06:05 08:14 Glucose 167 H POC Glucose 211 H 184 H 10/18/19 09:28 Glucose POC Glucose 156 H OUTPATIENT ANTIDIABETIC REGIMEN: * Humalog insulin pump * Basal rate: 1.3 units/hr * Bolus doses uncertain (pt unwilling to elaborate when interviewed by CDE)- In Apr 2018 patient used CF: 36, CR: 10 ASSESSMENT: * Mr. Tijerina is a 24 yo T1DM male on humalog insulin pump as an outpatient. He was admitted with DKA and started on IV insulin infusion. * Am labs indicate resolution of DKA: anion gap and bicarb WNL, BSG has ranged from 112-211 mg/dL since midnight. He has been on a stable insulin infusion rate of 1.3 units/hr (equivalent to home basal) for the past several hours. * He is ordered a clear liquid diet but does report some nausea with vomiting. * Per discussion with Hospitalist, the overall plan is for patient to restart home insulin pump however, he does not have insulin pump supplies with him. Will transition to basal + bolus insulin regimen now with plan to resume pump at time of discharge. PLAN FOR INPATIENT GLYCEMIC CONTROL: * Basal insulin * Lantus 27 units SQ x 1 dose (10/17 @1200) * Further Lantus orders TBD on 10/18 * Bolus insulin * NovoLog per scale ACHS or Q6hrs while NPO * Goal Range: Low 120 mg/dL - High 150 mg/dL * Correction Factor: 35 mg/dL/unit * Nutritional / Prandial insulin per carb ratio of 1 unit per 10 grams CHO consumed PLAN FOR DISCHARGE: * A1c pending (last A1c per [place] records was 7.3% - 05/11/18) * Recommend follow up with [facility]
[2019-10-18] MEDS: INSULIN ASPART 100 UNITS/ML 3 ML PEN SC SCH ×3 (11:58→21:32)
[2019-10-18] MEDS ORDERED: INSULIN GLARGINE SOLOSTAR 100 UNITS/ML 3 ML PEN SC ONE (12:00)
[2019-10-18 16:22] LABS: BUN Creatinine Ratio 18.3 (10-20); Calcium 8.5 mg/dl (8.5-10.1); Creatinine Clr Calc Pharmacy 129.3 ml/min; Est GFR (African American) 123.9; Est GFR (Non-African American) 106.9; Magnesium 1.8 mg/dl (1.8-2.4); Potassium 4.2 mmol/L (3.5-5.1)
[2019-10-18 16:25] LABS: Phosphorus 3.1 mg/dl (2.5-4.9)
[2019-10-19] MEDS ORDERED: INSULIN ASPART 100 UNITS/ML 3 ML PEN SC ONE
[2019-10-19] MEDS: HEPARIN SOD 5,000 UNIT/0.5 ML VIAL SQ SCH ×3 (06:22→21:48)
[2019-10-19] MEDS: NSS + 20MEQ KCL 20 MEQ/1,000 ML BAG IV SCH ×3 (06:42→23:55)
[2019-10-19] MEDS: ONDANSETRON INJ 2 MG/ML 2 ML VIAL IV PRN ×2 (06:42→08:52)
[2019-10-19 07:06] LABS: Basophils # (auto) 0.01 K/uL (0-0.2); Basophils % (auto) 0.1 %; Eosinophils # (auto) 0.09 K/uL (0-0.5); Hematocrit (blood only) 34.1 % (42-52); Hemoglobin 11.5 g/dL (14.0-18.0); Immature Granulocytes # (auto) 0.03 K/uL (0.00-0.02); Immature Granulocytes % (auto) 0.3 %; Lymphocytes # (auto) 2.04 K/uL (1.2-3.4); Lymphocytes % (auto) 23.7 %; Mean Corpuscular Hemoglobin 29.8 pg (25-34); Mean Corpuscular Hgb Conc 33.7 g/dL (32-36); Mean Corpuscular Volume 88.3 fL (80-100); Mean Platelet Volume 10.5 fL (7.4-10.4); Monocytes # (auto) 0.61 K/uL (0.11-0.59); Monocytes % (auto) 7.1 %; Neutrophils # (auto) 5.83 K/uL (1.4-6.5); Neutrophils % (auto) 67.8 %; Platelet Count 162 K/uL (130-400); RDW Coefficient of Variation 13.1 % (11.5-14.5); RDW Standard Deviation 42.2 fL (36.4-46.3); Red Blood Count 3.86 M/uL (4.7-6.1); White Blood Count 8.61 K/uL (4.8-10.8)
[2019-10-19 07:40] LABS: BUN Creatinine Ratio 13.8 (10-20); Calcium 8.6 mg/dl (8.5-10.1); Creatinine Clr Calc Pharmacy 133.4 ml/min; Est GFR (African American) 128.6; Magnesium 1.7 mg/dl (1.8-2.4); Potassium 4.4 mmol/L (3.5-5.1)
[2019-10-19 07:55] LABS: Phosphorus 2.5 mg/dl (2.5-4.9); Thyroid Stimulating Hormone 1.91 uIu/ml (0.300-4.500)
[2019-10-19 08:27] LABS: Estimated Average Glucose 180 mg/dl; Hemoglobin A1C 7.9 % (4.5-5.6)
[2019-10-19] MEDS: METHADONE PO SCH (08:36)
[2019-10-19] MEDS: INSULIN ASPART 100 UNITS/ML 3 ML PEN SC SCH ×4 (08:38→21:47)
[2019-10-19] MEDS: METHADONE ORAL SOLN 2 MG/ML PO SCH (08:40)
[2019-10-19] MEDS ORDERED: MAGNESIUM SULFATE / D5W 1 GM/100 ML BAG IV ONE (08:45)
[2019-10-19] MEDS ORDERED: INSULIN GLARGINE SOLOSTAR 100 UNITS/ML 3 ML PEN SQ ONE (09:00)
[2019-10-19] MEDS ORDERED: METOCLOPRAMIDE HCL INJ 5 MG/ML 2 ML VIAL IV PRN (10:16)
--- NOTE | 2019-10-19 13:18 | Pharmacy Report ---
Pharmacy Glycemic Short Note 2 - Date of Service October 19, 2019 - Glycemic Short BSG Results (Last 24 hours): 10/18/19 10/18/19 10/18/19 15:48 16:23 20:18 Glucose 116 H POC Glucose 119 H 266 H 10/18/19 10/19/19 10/19/19 23:43 06:34 07:31 Glucose 260 H POC Glucose 238 H 251 H 10/19/19 11:23 Glucose POC Glucose 199 H OUTPATIENT ANTIDIABETIC REGIMEN: * Humalog insulin pump * Basal rate: 1.3 units/hr * Bolus doses uncertain (pt unwilling to elaborate when interviewed by CDE)- In Apr 2018 patient used CF: 36, CR: 10 INPATIENT BSG/INSULIN REGIMEN: ASSESSMENT: 10/18: * Will increase Lantus dose for elevated fasting BSG. * BSG elevation last evening (266 mg/dL) was thought to be due to patient drinking Cornelia Georgiana before bed. However, BSGs remained elevated overnight and into the morning. Due to this trend Novolog correction factor was tightened. This could also be partly due to decreased dose of Lantus on 10/17 (13%decrease compared to basal rate delivered via pump). 10/17: * Mr. Tijerina is a 24 yo T1DM male on humalog insulin pump as an outpatient. He was admitted with DKA and started on IV insulin infusion. * Am labs indicate resolution of DKA: anion gap and bicarb WNL, BSG has ranged from 112-211 mg/dL since midnight. He has been on a stable insulin infusion rate of 1.3 units/hr (equivalent to home basal) for the past several hours. * He is ordered a clear liquid diet but does report some nausea with vomiting. * Per discussion with Hospitalist, the overall plan is for patient to restart home insulin pump however, he does not have insulin pump supplies with him. Will transition to basal + bolus insulin regimen now with plan to resume pump at time of discharge. PLAN FOR INPATIENT GLYCEMIC CONTROL: * Basal insulin - increase * Lantus 30 units SQ qAM * Bolus insulin - tighten CF * NovoLog per scale ACHS or Q6hrs while NPO * Goal Range: Low 120 mg/dL - High 150 mg/dL * Correction Factor: 30 mg/dL/unit * Nutritional / Prandial insulin per carb ratio of 1 unit per 10 grams CHO consumed PLAN FOR DISCHARGE: * A1c pending (last A1c per [place] records was 7.3% - 05/11/18) * Recommend follow up with [facility] * Per CDE consult, if any suspicion of pump issues, change infusion set/site JB; switch to insulin injections in interim if needed
--- NOTE | 2019-10-19 23:33 | Hospitalist Progress Note ---
Date of Service October 19, 2019 Assessment & Plan (1) DKA, type 1: By exam and laboratory work, patient is in DKA. No infectious etiology suspected. He does have gastroparesis which tends to exacerbate his into getting DKA. Anion gap remains closed and blood sugars are under much better control Converted insulin drip to basal and bolus insulin -glycemic pharmacy consult in place His insulin pump is off and he cannot put it back on here as he does not have the appropriate tubing Advance diet as tolerated-still nauseated but adding reglan -Follow BMP, labs nad replace lytes as needed -Continue normal saline +20 mEq KCl for hydration -hemoglobin A1c 7.9% which is not terrible -Needs to get reestablished with endocrinology as an outpatient (2) Vomiting: Secondary to DKA and gastroparesis Improving but remain snauseated -Continue Compazine and Zofran as needed -add reglan -Continue IV fluids for hydration -Continue to advance diet as tolerated (3) Hypomagnesemia: Replace again today Follow magnesium levels (4) TAYLOR (acute kidney injury): This likely secondary to significant volume contraction from his DKA and ongoing nausea with vomiting. -Now much improved with hydration and control blood sugars Follow BMP (5) Leukocytosis: Secondary to acute DKA and stress response from intractable nausea/vomit ing. Patient has no other signs of infection. Will monitor for fever, diarrhea, abdominal pain, or other symptoms. Improving today with WBC count down to normal -Follow CBC (6) IV drug abuse: Patient tells me he has not used IV heroin in 1.5-2 years. He is currently receiving methadone at [facility]. He is on 44 mg every morning. He did tell the ER that he was recently given 14 doses by the methadone clinic due to limited hours secondary to ongoing quarantine. -We will continue to offer the patient 44 mg in the morning Monitor for signs and symptoms of withdrawal. (7) Anemia: Hemoglobin with mild drop from 12-10.3 likely hemo-dilutional, is normocytic Likely with some anemia of chronic disease -Follow CBC No obvious bleeding (8) DVT prophylaxis: Heparin SQ Disposition-stable for downgrade to medical floor, plan for discharged home likely tomorrow once able to tolerate p.o. Admission and Anticipated Discharge Date Admission Date: October 17, 2019 Subjective Still having nausea but no vomiting, has not yet waten any clear liquids but wants to try. Has motilium at home but has not yet tried reglan here. Ordered reglan. Denies CP or SOB, no ab dpain, no BM. Not ready for discharge yet Tele with [facility] Review of Systems Review of Systems: All systems reviewed & are unremarkable except as noted in HPI & below Physical Exam Constitutional: average body habitus; no acute distress Eyes: + anicteric sclerae; no conjunctival abnormality Neck: trachea midline, no thyromegaly Respiratory: normal respiratory effort, lungs clear to auscultation Cardiovascular: RRR, no murmur, no edema Chest (Breasts): Chest: normal inspection of chest Gastrointestinal (Abdomen): normal bowel sounds, soft, nontender, no hepatosplenomegaly Musculoskeletal: Extremities: extremities normal to inspection; no cyanosis and no clubbing Skin: no rashes, warm and dry Neurologic: moves all extremities and awake; no focal motor deficits Psychiatric: Orientation: alert and oriented x 3 Affect: + flat affect Lymphatic: no lymphedema Results & Data Results & Data ([facility]) Vital Signs (Past 12 Hours) Vital Signs Temp Pulse Pulse Resp BP BP Pulse Ox 10/19/19 16:12 36.7 C 60 16 144/83 H 99 10/19/19 15:49 36.8 C 59 L 16 149/85 H 98 10/19/19 15:21 58 L PG Care Time/CCT Total # of Minutes Spent Total Time Spent with Patient: Total time spent is greater than 50% in coordination of care (as documented) at patient's floor/unit and/or counseling patient: Coding Level of Care Code 94496 Subseq Hosp Care Lvl 3 Diagnoses DKA, type 1 E10.10 Diabetes mellitus complication detail: without coma Vomiting R11.10 Nausea presence: unspecified Vomiting Intractability: unspecified Vomiting type: unspecified Hypomagnesemia E83.42 TAYLOR (acute kidney injury) N17.9 Leukocytosis D72.829 Leukocytosis type: unspecified IV drug abuse F19.10 Anemia D64.9 DVT prophylaxis Z29.9 (1) Leukocytosis Leukocytosis type: unspecified Qualified Code(s): D72.829 - Elevated white blood cell count, unspecified (2) DKA, type 1 Diabetes mellitus complication detail: without coma Qualified Code(s): E10.10 - Type 1 diabetes mellitus with ketoacidosis without coma (3) Vomiting Nausea presence: unspecified Vomiting Intractability: unspecified Vomiting type: unspecified Qualified Code(s): R11.10 - Vomiting, unspecified
[2019-10-20] MEDS ORDERED: INSULIN ASPART 100 UNITS/ML 3 ML PEN SC SCH (02:00)
[2019-10-20] MEDS: HEPARIN SOD 5,000 UNIT/0.5 ML VIAL SQ SCH ×2 (05:19→14:07)
[2019-10-20 06:05] LABS: Basophils # (auto) 0.01 K/uL (0-0.2); Basophils % (auto) 0.2 %; Eosinophils % (auto) 1.5 %; Hematocrit (blood only) 33.8 % (42-52); Hemoglobin 11.3 g/dL (14.0-18.0); Immature Granulocytes # (auto) 0.01 K/uL (0.00-0.02); Immature Granulocytes % (auto) 0.2 %; Lymphocytes # (auto) 2.61 K/uL (1.2-3.4); Lymphocytes % (auto) 39.6 %; Mean Corpuscular Hemoglobin 28.9 pg (25-34); Mean Corpuscular Hgb Conc 33.4 g/dL (32-36); Mean Corpuscular Volume 86.4 fL (80-100); Monocytes # (auto) 0.45 K/uL (0.11-0.59); Monocytes % (auto) 6.8 %; Neutrophils # (auto) 3.41 K/uL (1.4-6.5); Neutrophils % (auto) 51.7 %; Platelet Count 159 K/uL (130-400); RDW Coefficient of Variation 12.8 % (11.5-14.5); RDW Standard Deviation 40.2 fL (36.4-46.3); Red Blood Count 3.91 M/uL (4.7-6.1); White Blood Count 6.59 K/uL (4.8-10.8)
[2019-10-20 06:56] LABS: BUN Creatinine Ratio 7.5 (10-20); Calcium 8.3 mg/dl (8.5-10.1); Creatinine Clr Calc Pharmacy 152.4 ml/min; Est GFR (Non-African American) 123.4; Potassium 3.5 mmol/L (3.5-5.1)
[2019-10-20] MEDS: NSS + 20MEQ KCL 20 MEQ/1,000 ML BAG IV SCH (07:59)
[2019-10-20] MEDS: MOTILIUM SCH ×2 (08:00→14:06)
[2019-10-20] MEDS: METHADONE PO SCH (08:07)
[2019-10-20] MEDS: INSULIN ASPART 100 UNITS/ML 3 ML PEN SC SCH ×2 (08:45→12:41)
[2019-10-20] MEDS: ONDANSETRON INJ 2 MG/ML 2 ML VIAL IV PRN (08:48)
[2019-10-20] MEDS ORDERED: INSULIN GLARGINE SOLOSTAR 100 UNITS/ML 3 ML PEN SQ SCH ×2 (09:00)
[2019-10-20] MEDS: METHADONE ORAL SOLN 2 MG/ML PO SCH (09:28)
--- NOTE | 2019-10-20 12:06 | Discharge Summary ---
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 Patient is a somewhat difficult historian as he only gives 1 word answers and does not elaborate. Patient started having symptoms yesterday. This was nausea with vomiting, consistent with his previous cyclical vomiting symptoms. He was unable to hold down any food or liquids. He took a his morning methadone but threw this up as well. Patient did not have any fever or chills nor did he have any other infectious symptoms. Per records, patient was in the emergency room on 10/15 and improved after some IV hydration and Zofran/Compazine. Patient was discharged from the ER and returned home. He tells me that his symptoms returned a few hours later and persisted into the next morning. He has been having nausea and vomiting ever since and return to the emergency room for further evaluation. By lab work, the patient is now in DKA and is significantly hyperglycemic. Labs did seem more benign yesterday at the time of his first evaluation. Patient tells me he has been on his insulin pump the entire time. Principal Diagnosis DKA, Nausea/vomiting Discharge Exam Constitutional average body habitus; no acute distress Eyes + anicteric sclerae; no conjunctival abnormality ENMT external ear and nose normal, oropharynx normal Neck trachea midline, no thyromegaly Respiratory normal respiratory effort, lungs clear to auscultation Cardiovascular RRR, no murmur, no edema Chest (Breasts) Chest: normal inspection of chest Gastrointestinal (Abdomen) normal bowel sounds, soft, nontender, no hepatosplenomegaly Musculoskeletal Extremities: extremities normal to inspection; no cyanosis and no clubbing Skin no rashes, warm and dry Neurologic moves all extremities and awake; no focal motor deficits Psychiatric Orientation: alert and oriented x 3 Lymphatic no lymphedema Discharge Data Allergies Allergy/AdvReac Type Severity Reaction Status Date / Time Cephalosporins Allergy Unknown Hives Verified 10/17/19 15:27 Sulfa (Sulfonamide Allergy Unknown Hives Verified 10/17/19 15:27 Antibiotics) azithromycin [From Zithromax] AdvReac Intermediate Hives Verified 10/17/19 15:27 Consultations 10/17/19 16:52 ED Decision to Admit Stat Hospital Course (1) DKA, type 1: By exam and laboratory work, patient is in DKA. No infectious etiology suspected. He does have gastroparesis which tends to exacerbate his into getting DKA. Anion gap remains closed and blood sugars are under much better control Converted insulin drip to basal and bolus insulin -will go home and replace insulin pump at half usual rate this evening, check 0200 AM BG and resume full dose in the morning as he received Lantus here today Hydrated and lytes replaced Tolerating reg diet, no further N/V at time of discharge -continue home motilium, ZOfran, phenergan prn -hemoglobin A1c 7.9% which is not terrible -Needs to get reestablished with endocrinology as an outpatient-appt arranged (2) Vomiting: Secondary to DKA and gastroparesis much improved, altagracia reg diet -continue ZOfran, motilium, prn at home (3) Hypomagnesemia: replaced (4) TAYLOR (acute kidney injury): This likely secondary to significant volume contraction from his DKA and ongoing nausea with vomiting. -Now much improved with hydration and control blood sugars (5) Leukocytosis: Secondary to acute DKA and stress response from intractable nausea/vomiting. Patient has no other signs of infection. Will monitor for fever, diarrhea, abdominal pain, or other symptoms. -resolved (6) IV drug abuse: Patient tells me he has not used IV heroin in 1.5-2 years. He is currently receiving methadone at [facility]. He is on 44 mg every morning. He did tell the ER that he was recently given 14 doses by the methadone clinic due to limited hours secondary to ongoing quarantine. - continued home dose, doing wlel and plans to wean off this to help with his gastroparesis (7) Anemia: Hemoglobin with mild drop from 12-10.3 likely hemo-dilutional, is normocytic Likely with some anemia of chronic disease -Follow CBC as outpt No obvious bleeding (8) DVT prophylaxis: Heparin SQ provided Disposition-stable dc to home Total Time Total Time Spent Total Time Spent (In Minutes): 35 min Total Time Includes: Examination of the Patient, Discharge Planning and Medication Reconciliation Discharge Plan Discharge Items Patient Disposition: Home - Self-Care Reason For Visit: DKA Discharge Diagnosis: DKA, nausea/vomiting Condition on Discharge: Fair Activity: Resume your previous activity Non-emergency contact: Primary Care Provider Call non-emergency contact if: you have any medication questions and your symptoms worsen Follow-up/Referrals: Kelby Rdz MD [Physician] - (Please, follow up at [facility]. *A nurse from this office will call you with the appointment information. If you have any questions, call the office at [phone].) Oneil Tinajero MD [Primary Care Provider] - 10/23/19 10:30 am (Please, follow up with Dr. Wagner for a VIRTUAL APPOINTMENT on TuesdayOctober 22 at 10:30 am. *A nurse from this office will contact you on the at 10:30 regarding how to proceed with the virtual appointment. If you have any questions, call the office at [phone].) Diet: Carb Count or DM1 Diet Comment: small, frequent meals, gastroparesis diet Addtl Attending Provider Instructions: Please place your pump back on when you get home and use half your usual rate until tomorrow morning as you received Lantus 27 units this morning. Increase back toy our usual rate in the morning. Please check your blood glucose with each meal and at bedtime, as well as at 2:00 AM tonight just to be sure it's not dropping too low with adding your pump back on. You can continue your home motilium and zofran as needed for nausea. Pending Studies at Discharge: No Stand-Alone Forms: [facility] Medications and DC Order Prescriptions: Continued methadone 10 mg/5 mL Solution 44 mg PO QAM RF: 0 ondansetron 4 mg tablet,disintegrating 4 mg PO Q6H PRN (Reason: Nausea And Vomiting) Qty: 20 RF: 0 Motilium 10 mg PO TID RF: 0 insulin lispro [Humalog U-100 Insulin] 100 unit/mL Solution 1 sliding scale dose continuous subcutaneous infusion DIRECTED RF: 0 promethazine 25 mg suppository 25 mg TN Q6H PRN (Reason: Nausea) RF: 0 promethazine 25 mg tablet 25 mg PO TID PRN (Reason: Nausea And Vomiting) RF: 0 Discharge Orders: Discharge Order (Routine); Ordered 10/20/19 Ordered By: Carly Mccarty/Other Patient Handouts: Diabetes Sick Day Plan Admission Data Admit Date/Time: 10/17/19 17:56 Attending Provider: Carly Mccullough Admit Provider: Preston Peña Primary Care Provider: Oneil Tinajero Other Providers: Preston Peña Coding Level of Care Code D/C Day Management >30 mins Diagnoses DKA, type 1 E10.10 Diabetes mellitus complication detail: without coma Vomiting R11.10 Nausea presence: unspecified Vomiting Intractability: unspecified Vomiting type: unspecified Hypomagnesemia E83.42 TAYLOR (acute kidney injury) N17.9 Leukocytosis D72.829 Leukocytosis type: unspecified IV drug abuse F19.10 Anemia D64.9 DVT prophylaxis Z29.9
== END 2019-10-20 15:04 | disposition home or self-care (01) | DRG 638 ==
LOC: ED 15:03 → 2S 17:56 → SUATTDRO 17:56 → 2S 20:16 → 3E 10-19 13:04

== ENCOUNTER 2020-01-26 10:29 | Observation (INO) ==
[2020-01-26] MEDS ORDERED: METOCLOPRAMIDE HCL INJ 5 MG/ML 2 ML VIAL IV STA (11:04)
--- NOTE | 2020-01-26 11:06 | Emergency Department Note ---
History of Present Illness General Chief complaint: Vomiting Stated complaint: NAUSEA - VOMITING Time Seen by Provider: 01/26/20 10:55 History of Present Illness Maximum Pain Intensity: 0 This is a 24-year-old male that presents to the emergency department via private vehicle with complaints of "nausea, vomiting". The patient notes that he awoke today with nausea and vomiting. He denies any pain. No trauma or injury. He has had this before noting a history of gastroparesis. He is a type I diabetic. He is unsure of any recent blood sugar values. He did try 4 mg of sublingual Z ofran prior to arrival without any relief. He denies any fevers, chills, cough, chest pain, shortness of breath, travel or recent ill contacts. He denies any recent alcohol or drug use. Home Medications Home Medications Medication Instructions Recorded Confirmed Type Motilium 10 mg PO TID 12/10/19 01/26/20 History methadone 44 mg PO QAM 12/10/19 01/26/20 History ondansetron 4 mg PO Q6 PRN 12/10/19 01/26/20 History insulin lispro 100 unit/mL 34 units SQ DAILY ml 01/15/20 01/26/20 History subcutaneous pen glucagon 3 mg INTNAS ONCE PRN 01/26/20 01/26/20 History Allergies Allergy/AdvReac Type Severity Reaction Status Date / Time Cephalosporins Allergy Intermediate Hives Verified 01/26/20 17:34 Sulfa (Sulfonamide Allergy Intermediate Hives Verified 01/26/20 17:34 Antibiotics) azithromycin [From Zithromax] AdvReac Intermediate Hives Verified 01/26/20 11:19 Past Med/Surg History Family History Other Cancer Diabetes Heart disease Hypertension Social History Smoking Status: Former smoker Second Hand Exposure: No; Do You Dip or Chew Tobacco: No; Tobacco Cessation Education Requested by Patient: No Hx Alcohol Use: No Hx Substance Use: Yes Last Used Substance: Unknown Substance Use Type Other:: history of iv drug use Preferred Language: Senegalese Communication Ability: Effective Truss Puller Helper Required: No Beliefs That Will Affect Care: None Current Living Situation: Parent Other Information That Helps Us Care for You: No Feels Safe at Home: Yes Review of Systems A total of 10 systems reviewed and were otherwise negative Physical Exam Vital Signs Vital Signs - 24 hr 01/26/20 10:40 01/26/20 11:18 01/26/20 11:22 Temperature 37.6 C H Temperature Source Oral Pulse Rate 90 63 63 Pulse Rate from SpO2 Sensor 62 64 Respiratory Rate 20 17 12 Blood Pressure 117/80 124/70 Blood Pressure Mean 92 80 Pulse Oximetry 100 100 100 Oxygen Delivery Method Room Air Room Air Sepsis Recent Fever Within 48 Hours No Sepsis New/Unexplained Change in Mental Status N/A Sepsis Action Taken by Nursing No Action Required 01/26/20 11:30 01/26/20 11:40 01/26/20 11:50 Temperature Temperature Source Pulse Rate 77 71 70 Pulse Rate from SpO2 Sensor Respiratory Rate 14 13 16 Blood Pressure Blood Pressure Mean Pulse Oximetry Oxygen Delivery Method Sepsis Recent Fever Within 48 Hours Sepsis New/Unexplained Change in Mental Status Sepsis Action Taken by Nursing 01/26/20 12:06 01/26/20 12:08 01/26/20 12:10 Temperature Temperature Source Pulse Rate 76 78 Pulse Rate from SpO2 Sensor 70 89 Respiratory Rate 13 19 14 Blood Pressure 113/76 Blood Pressure Mean 78 Pulse Oximetry 99 100 Oxygen Delivery Method Sepsis Recent Fever Within 48 Hours Sepsis New/Unexplained Change in Mental Status Sepsis Action Taken by Nursing 01/26/20 12:20 01/26/20 12:30 01/26/20 12:40 Temperature Temperature Source Pulse Rate 61 80 67 Pulse Rate from SpO2 Sensor Respiratory Rate 17 16 16 Blood Pressure Blood Pressure Mean Pulse Oximetry Oxygen Delivery Method Sepsis Recent Fever Within 48 Hours Sepsis New/Unexplained Change in Mental Status Sepsis Action Taken by Nursing 01/26/20 12:50 01/26/20 13:00 01/26/20 13:01 Temperature Temperature Source Pulse Rate 73 63 79 Pulse Rate from SpO2 Sensor Respiratory Rate 17 14 19 Blood Pressure 115/69 Blood Pressure Mean 78 Pulse Oximetry Oxygen Delivery Method Sepsis Recent Fever Within 48 Hours Sepsis New/Unexplained Change in Mental Status Sepsis Action Taken by Nursing 01/26/20 13:10 01/26/20 13:20 01/26/20 13:30 Temperature Temperature Source Pulse Rate 70 74 70 Pulse Rate from SpO2 Sensor Respiratory Rate 16 15 13 Blood Pressure Blood Pressure Mean Pulse Oximetry Oxygen Delivery Method Sepsis Recent Fever Within 48 Hours Sepsis New/Unexplained Change in Mental Status Sepsis Action Taken by Nursing 01/26/20 13:40 01/26/20 13:50 01/26/20 14:00 Temperature Temperature Source Pulse Rate 88 66 83 Pulse Rate from SpO2 Sensor Respiratory Rate 22 16 13 Blood Pressure 123/71 Blood Pressure Mean 82 Pulse Oximetry 99 Oxygen Delivery Method Sepsis Recent Fever Within 48 Hours Sepsis New/Unexplained Change in Mental Status Sepsis Action Taken by Nursing 01/26/20 14:01 01/26/20 14:10 Temperature Temperature Source Pulse Rate 67 72 Pulse Rate from SpO2 Sensor Respiratory Rate 16 13 Blood Pressure Blood Pressure Mean Pulse Oximetry Oxygen Delivery Method Sepsis Recent Fever Within 48 Hours Sepsis New/Unexplained Change in Mental Status Sepsis Action Taken by Nursing VITAL SIGNS - Vital signs and nursing notes were reviewed. Stable and afebrile. GENERAL -24-year-old male appearing his stated age who is in no acute distress. He is pale and diaphoretic. Communicates well with provider and answers questions appropriately. SKIN - Without rashes. Patient is pale, diaphoretic. HEAD - NC/AT. EYES - PERRL with EOMI bilaterally. Sclera anicteric. EARS - No deformities of external structures noted on gross examination bilaterally. NOSE - Midline and without cyanosis. No epistaxis or purulent drainage noted. MOUTH/OROPHARYNX - Without perioral cyanosis. NECK - Neck with FROM. No nuchal rigidity. LUNGS - Chest wall symmetric without accessory muscle use, intercostals retractions, or central cyanosis. Normal vesicular breath sounds CTA B/L. No wheezes, rales, or rhonchi appreciated. CARDIAC - RRR with S1/S2. No murmur, rubs, or gallops appreciated. ABDOMEN - Abdominal contour normal without pulsations or visible masses. BS normoactive all four quadrants. No tenderness, palpable masses, hepatosplenomegaly, or ascites noted. EXTREMITIES - No clubbing or peripheral cyanosis. No pretibial edema present. +5/5 strength noted in UE/LE bilaterally. NEUROLOGIC - Cranial nerves II through XII grossly intact. PSYCH - A&Ox3 and cooperates fully with examiner. Pt is very pleasant and interacts well with examiner. Course Administered Medications Potassium Chloride/Sodium Chloride (Normal Saline W/20 Meq Kcl) 20 meq in 1,000 mls @ 125 mls/hr IV .Q8H YUE Stop: 02/25/20 15:44 Last Admin: 01/26/20 16:18 Dose: 125 mls/hr Documented by: [id number] Metoclopramide HCl (Reglan) 10 mg IV Q6H PRN PRN Reason: Nausea Stop: 02/25/20 15:43 Last Admin: 01/26/20 18:02 Dose: 10 mg Documented by: [id number] Discontinued Medications Sodium Chloride (Nss 1000ml) 1,000 mls @ 999 mls/hr IV .Q1H1M YUE Stop: 01/26/20 12:15 Last Infusion: 01/26/20 12:51 Dose: 0 mls/hr Documented by: [id number] Admin: 01/26/20 11:18 Dose: 999 mls/hr Documented by: [id number] Sodium Chloride (Nss 1000ml) 1,000 mls @ 999 mls/hr IV .Q1H1M YUE Stop: 01/26/20 14:00 Last Infusion: 01/26/20 14:18 Dose: 0 mls/hr Documented by: [id number] Admin: 01/26/20 12:56 Dose: 999 mls/hr Documented by: [id number] Promethazine HCl (Phenergan) 12.5 mg in 50.5 mls @ 202 mls/hr IV NOW STA Stop: 01/26/20 13:43 Last Infusion: 01/26/20 14:16 Dose: 0 mls/hr Documented by: [id number] Admin: 01/26/20 13:43 Dose: 202 mls/hr Documented by: [id number] Metoclopramide HCl (Reglan) 10 mg IV NOW STA Stop: 01/26/20 11:05 Last Admin: 01/26/20 11:18 Dose: 10 mg Documented by: [id number] Miscellaneous Information (Consult Glycemic Management Pharmacy) 1 ea N/A NOW STA; Protocol Stop: 01/26/20 15:45 Last Admin: 01/26/20 16:18 Dose: 1 ea Documented by: [id number] Medical Decision Making Laboratory Data Result diagrams: 01/26/20 11:20 01/26/20 11:20 Lab Results 01/26/20 01/26/20 01/26/20 Range/Units 11:16 11:20 11:20 WBC 7.69 (4.8-10.8) K/uL RBC 4.40 L (4.7-6.1) M/uL Hgb 12.8 L (14.0-18.0) g/dL Hct 38.5 L (42-52) % MCV 87.5 (80-100) fL MCH 29.1 (25-34) pg MCHC 33.2 (32-36) g/dL RDW Std Deviation 41.1 (36.4-46.3) fL RDW Coeff of Carlos 12.7 (11.5-14.5) % Plt Count 189 (130-400) K/uL MPV 10.4 (7.4-10.4) fL Immature Gran % (Auto) 0.1 % Neut % (Auto) 72.2 % Lymph % (Auto) 20.2 % [place] % (Auto) 5.9 % Eos % (Auto) 1.3 % Baso % (Auto) 0.3 % Neut # (Auto) 5.56 (1.4-6.5) K/uL Lymph # (Auto) 1.55 (1.2-3.4) K/uL [place] # (Auto) 0.45 (0.11-0.59) K/uL Eos # (Auto) 0.10 (0-0.5) K/uL Baso # (Auto) 0.02 (0-0.2) K/uL Immature Gran # (Auto) 0.01 (0.00-0.02) K/uL VBG pH (7.36-7.41) VBG pCO2 (38-50) mmHg VBG pO2 mmHg VBG HCO3 mmol/L VBG O2 Saturation % VBG Base Excess mEq/L Barometric Pressure mm/Hg Sodium (136-145) mmol/L Potassium (3.5-5.1) mmol/L Chloride (98-107) mmol/L Carbon Dioxide (21-32) mmol/L Anion Gap (3-11) BUN (7-18) mg/dl Creatinine (0.6-1.4) mg/dl Est Cr Clr Drug Dosing ml/min Est GFR ( Amer) Est GFR (Non-Af Amer) BUN/Creatinine Ratio (10-20) Glucose (70-99) mg/dl POC Glucose 129 H (70-99) mg/dl Lactate (0.4-2.0) mmol/L Calcium (8.5-10.1) mg/dl Magnesium (1.8-2.4) mg/dl Total Bilirubin (0.2-1) mg/dl AST (15-37) U/L ALT (12-78) U/L Alkaline Phosphatase (45-117) U/L Total Protein (6.4-8.2) gm/dl Albumin (3.4-5.0) gm/dl Globulin (2.5-4.0) gm/dl Albumin/Globulin Ratio (0.9-2) Lipase (73-393) U/L Blood Type A Positive Antibody Screen NEGATIVE 01/26/20 01/26/20 01/26/20 Range/Units 11:20 11:20 11:20 WBC (4.8-10.8) K/uL RBC (4.7-6.1) M/uL Hgb (14.0-18.0) g/dL Hct (42-52) % MCV (80-100) fL MCH (25-34) pg MCHC (32-36) g/dL RDW Std Deviation (36.4-46.3) fL RDW Coeff of Carlos (11.5-14.5) % Plt Count (130-400) K/uL MPV (7.4-10.4) fL Immature Gran % (Auto) % Neut % (Auto) % Lymph % (Auto) % [place] % (Auto) % Eos % (Auto) % Baso % (Auto) % Neut # (Auto) (1.4-6.5) K/uL Lymph # (Auto) (1.2-3.4) K/uL [place] # (Auto) (0.11-0.59) K/uL Eos # (Auto) (0-0.5) K/uL Baso # (Auto) (0-0.2) K/uL Immature Gran # (Auto) (0.00-0.02) K/uL VBG pH 7.49 H (7.36-7.41) VBG pCO2 35 L (38-50) mmHg VBG pO2 28 mmHg VBG HCO3 26 mmol/L VBG O2 Saturation < 60.0 % VBG Base Excess 2.9 mEq/L Barometric Pressure 731.7 mm/Hg Sodium 139 (136-145) mmol/L Potassium 3.6 (3.5-5.1) mmol/L Chloride 105 (98-107) mmol/L Carbon Dioxide 27 (21-32) mmol/L Anion Gap 7.0 (3-11) BUN 11 (7-18) mg/dl Creatinine 1.00 (0.6-1.4) mg/dl Est Cr Clr Drug Dosing 125.8 ml/min Est GFR ( Amer) 122.4 Est GFR (Non-Af Amer) 105.6 BUN/Creatinine Ratio 10.5 (10-20) Glucose 136 H (70-99) mg/dl POC Glucose (70-99) mg/dl Lactate 1.7 (0.4-2.0) mmol/L Calcium 9.4 (8.5-10.1) mg/dl Magnesium 1.9 (1.8-2.4) mg/dl Total Bilirubin 0.6 (0.2-1) mg/dl AST 18 (15-37) U/L ALT 17 (12-78) U/L Alkaline Phosphatase 65 (45-117) U/L Total Protein 7.6 (6.4-8.2) gm/dl Albumin 4.3 (3.4-5.0) gm/dl Globulin 3.3 (2.5-4.0) gm/dl Albumin/Globulin Ratio 1.3 (0.9-2) Lipase 50 L (73-393) U/L Blood Type Antibody Screen Imaging Data Radiologist's Impression: XR chest 1V portable CLINICAL HISTORY: nausea, emesis dyspnea COMPARISON STUDY: 10/02/2018 FINDINGS: The bones soft tissues and hemidiaphragms are normal. The cardiomediastinal silhouette is normal. The lungs are clear. The pulmonary vas culature is normal. IMPRESSION: Negative chest. ACT 112: Negative or not required by law. The above report was generated using voice recognition software. It may contain grammatical, syntax or spelling errors. Electronically signed by: Tacos Rodas M.D. 01/26/2020 11:[address] [facility] Narrative Patient was seen and evaluated as above in room B6. Review was performed of nursing notes and vital signs. I did review pertinent previous visits and pa tient history. After obtaining a thorough history and physical examination the above work up was performed. He presents to us today with nausea and vomiting. This occurred when he woke up today. He has a history of gastroparesis. He is unsure of his recent glucose levels but does have an insulin pump. On arrival he does appear diaphoretic and is actively vomiting. He is quite pale in appearance. Overall discomfort is a 0/10. IV access was established. Labs were drawn. There is no leukocytosis. Mild anemia noted. VBG pH 7.49 with PCO2 of 35. No evidence of kidney or liver failure. Glucose here 136. Chest x-ray negative for pneumonia or free air. Patient was hydrated with IV normal saline and given Reglan for antiemetic properties. He is reevaluated with minimal improvement. He was given IV Phenergan. Although he was feeling better he notes still not much improvement and did have another episode of vomiting after p.o. fluid trial. In discussing with him options of care was felt that further evaluation and management in inpatient setting would be warranted. Patient was amenable to staying. I discussed the case with the hospitalist. Please refer to further documentation regarding his stay. GCS: 15 In the evaluation and treatment of this patient the following differential diagnoses were entertained: Sepsis, bowel obstruction, gastroparesis, COVID-19, pancreatitis, pneumonia, among others. Impression & Plan Intractable vomiting with nausea Discharge Plan Visit Data *Final* Discharge Date/Time: 01/26/20 16:42 Chief Complaint: Vomiting Stated Complaint: NAUSEA - VOMITING ED Provider: Fidel Campo ED Midlevel Provider: Ja Mcgarry Discharge Problem: Intractable vomiting with nausea Patient Disposition: Admitted As Inpatient Condition: Good Discharge Instructions Interventions: ED Discharge Assessment Last Done: 01/26/20 16:42
[2020-01-26] MEDS ORDERED: SODIUM CHLORIDE 0.9% 1000ML 1,000 ML IV SCH ×2 (11:15→13:00)
[2020-01-26 11:31] LABS: White Blood Count 7.69 K/uL (4.8-10.8)
[2020-01-26 11:32] LABS: Basophils # (auto) 0.02 K/uL (0-0.2); Basophils % (auto) 0.3 %; Eosinophils % (auto) 1.3 %; Hematocrit (blood only) 38.5 % (42-52); Hemoglobin 12.8 g/dL (14.0-18.0); Immature Granulocytes # (auto) 0.01 K/uL (0.00-0.02); Immature Granulocytes % (auto) 0.1 %; Lymphocytes # (auto) 1.55 K/uL (1.2-3.4); Lymphocytes % (auto) 20.2 %; Mean Corpuscular Hemoglobin 29.1 pg (25-34); Mean Corpuscular Hgb Conc 33.2 g/dL (32-36); Mean Corpuscular Volume 87.5 fL (80-100); Mean Platelet Volume 10.4 fL (7.4-10.4); Monocytes # (auto) 0.45 K/uL (0.11-0.59); Monocytes % (auto) 5.9 %; Neutrophils # (auto) 5.56 K/uL (1.4-6.5); Neutrophils % (auto) 72.2 %; Platelet Count 189 K/uL (130-400); RDW Coefficient of Variation 12.7 % (11.5-14.5); RDW Standard Deviation 41.1 fL (36.4-46.3)
--- NOTE | 2020-01-26 11:47 | XRay Report ---
XR chest 1V portable CLINICAL HISTORY: nausea, emesis dyspnea COMPARISON STUDY: 10/02/2018 FINDINGS: The bones soft tissues and hemidiaphragms are normal. The cardiomediastinal silhouette is n ormal. The lungs are clear. The pulmonary vasculature is normal. IMPRESSION: Negative chest. ACT 112: Negative or not required by law. The above report was generated using voice recognition software. It may contain grammatical, syntax or spelling errors. Electronically signed by: Tacos Rodas M.D. 01/26/2020 11:46 AM
[2020-01-26 11:48] LABS: Base Excess VBG 2.9 mEq/L; HCO3 VBG 26 mmol/L; PCO2 VBG 35 mmHg (38-50); PO2 VBG 28 mmHg; pH VBG 7.49 (7.36-7.41)
[2020-01-26 11:49] LABS: Albumin Level 4.3 gm/dl (3.4-5.0); BUN Creatinine Ratio 10.5 (10-20); Calcium 9.4 mg/dl (8.5-10.1); Creatinine Clr Calc Pharmacy 125.8 ml/min; Est GFR (African American) 122.4; Est GFR (Non-African American) 105.6; Magnesium 1.9 mg/dl (1.8-2.4); Potassium 3.6 mmol/L (3.5-5.1)
[2020-01-26 11:52] LABS: Albumin Globulin Ratio 1.3 (0.9-2); Bilirubin,Total 0.6 mg/dl (0.2-1); Globulin 3.3 gm/dl (2.5-4.0); Total Protein 7.6 gm/dl (6.4-8.2)
[2020-01-26 11:56] LABS: Oxygen Saturation VBG < 60.0 %
[2020-01-26] MEDS ORDERED: PROMETHAZINE 12.5 MG/50.5 ML BAG IV STA (13:29)
--- NOTE | 2020-01-26 15:39 | History & Physical Report ---
Date of Service January 26, 2020 Assessment & Plan (1) Intractable vomiting with nausea: Here with intractable nausea and vomiting likely related to gastroparesis- he has presented this way to the hospital previously Fortunately, he is not in DKA at this time. He has a low-grade temperature here, but not a fever and has no other signs or symptoms of COVID-19-I do not think he needs to be tested for this He has no abdominal pain and no significant electrolyte abnormalities -Admit on observation for intractable nausea/vomiting -Continue IV fluid hydration -Follow BMP in the morning Replace electrolytes as needed -He reports that Zofran makes him have a high heart rate -continue Phenergan as needed -Continue Reglan as needed -N.p.o. for now and advance diet as tolerated -Can continue his home Motilium if able to tolerate p.o. meds -Check UA to rule out infection (2) Gastroparesis: As noted above Continue home Motilium Eat small meals when taking p.o. (3) Type I diabetes mellitus: With insulin pump in place -Okay to continue home insulin pump -Accu-Cheks every 6 hours while n.p.o.-his pump will bolus as needed -Check hemoglobin A1c in the morning (4) History of opioid abuse: Now on methadone 39 mg once daily -Continue methadone if can tolerate p.o. in the morning (5) Anemia: Hemoglobin mildly low at 13.2 which is likely a bit hemoconcentrated given the persistent nausea/vomiting Normocytic -Check iron studies, B12, folate in the morning TSH was recently normal 3 months ago -Follow CBC in the morning (6) DVT prophylaxis: Lovenox SQ Disposition-bring in on observation for intractable nausea/vomiting Hopeful for discharge to home tomorrow if feeling better and tolerating p.o. History of Present Illness Chief Complaint: Nausea/vomiting Primary Care Provider: Oneil Tinajero MD This patient is a 24-year-old male with a history of type 1 diabetes, gastroparesis, history of heroin abuse now on methadone, who presents to the ER with intractable nausea and vomiting. He took sublingual Zofran at home but was not able to keep anything down. When he arrived in the ER, he was reportedly pale and diaphoretic and looked bad. Fortunately, his CBC only showed mild anemia stable from previous, and had a completely normal CMP and lipase. He has been afebrile, denies any abdominal pains. He denies fevers or chills, no headache, no lightheadedness, no urinary symptoms, no shortness of breath or cough, no chest pain. He was given IV fluids, IV Reglan and IV Phenergan. Attempts were made to see if he can tolerate p.o. and he could not as he was vomiting again. His chest x-ray was negative. His labs were fairly unremarkable and he was not in DKA. He will be admitted on observation for intractable nausea/vomiting likely related to his gastroparesis. Allergies Allergy/AdvReac Type Severity Reaction Status Date / Time Cephalosporins Allergy Intermediate Hives Verified 01/26/20 17:34 Sulfa (Sulfonamide Allergy Intermediate Hives Verified 01/26/20 17:34 Antibiotics) azithromycin [From Zithromax] AdvReac Intermediate Hives Verified 01/26/20 11:19 Home Medications Home Medications Medication Instructions Recorded Confirmed Type Motilium 10 mg PO TID 12/10/19 01/26/20 History methadone 39 mg PO QAM 12/10/19 01/26/20 History ondansetron 4 mg PO Q6 PRN 12/10/19 01/26/20 History insulin lispro 100 unit/mL 34 units SQ DAILY ml 01/15/20 01/26/20 History subcutaneous pen glucagon 3 mg INTNAS ONCE PRN 01/26/20 01/26/20 History Past Med/Surg History Medical History Anemia (Resolved) Diabetes Gastroparesis Hepatitis History of opioid abuse Pneumomediastinum Soft tissue abscess Surgical History No pertinent past surgical history Family History Other Cancer Diabetes Heart disease Hypertension Social History Smoking Status: Former smoker Second Hand Exposure: No; Do You Dip or Chew Tobacco: No; Tobacco Cessation Education Requested by Patient: No Hx Alcohol Use: No Hx Substance Use: Yes Last Used Substance: Unknown Substance Use Type Other:: history of iv drug use Preferred Language: Bahamian Communication Ability: Effective Candy Bar Attendant Required: No Beliefs That Will Affect Care: None Current Living Situation: Parent Other Information That Helps Us Care for You: No Feels Safe at Home: Yes Review of Systems Review of Systems: All systems reviewed & are unremarkable except as noted in HPI & below Physical Exam Constitutional: WD/WN, vitals as above + ill appearing Eyes: PERRL, conjunctivae normal, anicteric sclerae ENMT: external ear and nose normal, oropharynx normal Neck: trachea midline, no thyromegaly Respiratory: normal respiratory effort, lungs clear to auscultation Cardiovascular: RRR, no murmur, no edema Chest (Breasts): Chest: normal inspection of chest Gastrointestinal (Abdomen): normal bowel sounds, soft, nontender, no hepatosplenomegaly Musculoskeletal: Extremities: extremities normal to inspection; no cyanosis and no clubbing Skin: no rashes, warm and dry Neurologic: moves all extremities and awake; no focal motor deficits Psychiatric: Orientation: alert, oriented x 3 and cooperative Affect: + flat affect Lymphatic: no lymphedema Results & Data Results & Data ([facility]) Vital Signs (Past 12 Hours) Vital Signs Temp Pulse Resp BP Pulse Ox 01/26/20 14:10 72 13 01/26/20 14:01 67 16 01/26/20 14:00 83 13 123/71 99 01/26/20 13:50 66 16 01/26/20 13:40 88 22 01/26/20 13:30 70 13 01/26/20 13:20 74 15 01/26/20 13:10 70 16 01/26/20 13:01 79 19 01/26/20 13:00 63 14 115/69 01/26/20 12:50 73 17 01/26/20 12:40 67 16 01/26/20 12:30 80 16 01/26/20 12:20 61 17 01/26/20 12:10 78 14 100 01/26/20 12:08 76 19 113/76 99 01/26/20 12:06 13 01/26/20 11:50 70 16 01/26/20 11:40 71 13 01/26/20 11:30 77 14 01/26/20 11:22 63 12 100 01/26/20 11:18 63 17 124/70 100 01/26/20 10:40 37.6 C H 90 20 117/80 100 Laboratory Results 01/26/20 01/26/20 01/26/20 Range/Units 11:20 11:20 11:20 WBC (4.8-10.8) K/uL RBC (4.7-6.1) M/uL Hgb (14.0-18.0) g/dL Hct (42-52) % MCV (80-100) fL MCH (25-34) pg MCHC (32-36) g/dL RDW Std Deviation (36.4-46.3) fL RDW Coeff of Carlos (11.5-14.5) % Plt Count (130-400) K/uL MPV (7.4-10.4) fL Immature Gran % (Auto) % Neut % (Auto) % Lymph % (Auto) % [place] % (Auto) % Eos % (Auto) % Baso % (Auto) % Neut # (Auto) (1.4-6.5) K/uL Lymph # (Auto) (1.2-3.4) K/uL [place] # (Auto) (0.11-0.59) K/uL Eos # (Auto) (0-0.5) K/uL Baso # (Auto) (0-0.2) K/uL Immature Gran # (Auto) (0.00-0.02) K/uL VBG pH 7.49 H (7.36-7.41) VBG pCO2 35 L (38-50) mmHg VBG pO2 28 mmHg VBG HCO3 26 mmol/L VBG O2 Saturation < 60.0 % VBG Base Excess 2.9 mEq/L Barometric Pressure 731.7 mm/Hg Sodium 139 (136-145) mmol/L Potassium 3.6 (3.5-5.1) mmol/L Chloride 105 (98-107) mmol/L Carbon Dioxide 27 (21-32) mmol/L Anion Gap 7.0 (3-11) BUN 11 (7-18) mg/dl Creatinine 1.00 (0.6-1.4) mg/dl Est Cr Clr Drug Dosing 125.8 ml/min Est GFR ( Amer) 122.4 Est GFR (Non-Af Amer) 105.6 BUN/Creatinine Ratio 10.5 (10-20) Glucose 136 H (70-99) mg/dl POC Glucose (70-99) mg/dl Lactate 1.7 (0.4-2.0) mmol/L Calcium 9.4 (8.5-10.1) mg/dl Magnesium 1.9 (1.8-2.4) mg/dl Total Bilirubin 0.6 (0.2-1) mg/dl AST 18 (15-37) U/L ALT 17 (12-78) U/L Alkaline Phosphatase 65 (45-117) U/L Total Protein 7.6 (6.4-8.2) gm/dl Albumin 4.3 (3.4-5.0) gm/dl Globulin 3.3 (2.5-4.0) gm/dl Albumin/Globulin Ratio 1.3 (0.9-2) Lipase 50 L (73-393) U/L Blood Type Antibody Screen 01/26/20 01/26/20 01/26/20 Range/Units 11:20 11:20 11:16 WBC 7.69 (4.8-10.8) K/uL RBC 4.40 L (4.7-6.1) M/uL Hgb 12.8 L (14.0-18.0) g/dL Hct 38.5 L (42-52) % MCV 87.5 (80-100) fL MCH 29.1 (25-34) pg MCHC 33.2 (32-36) g/dL RDW Std Deviation 41.1 (36.4-46.3) fL RDW Coeff of Carlos 12.7 (11.5-14.5) % Plt Count 189 (130-400) K/uL MPV 10.4 (7.4-10.4) fL Immature Gran % (Auto) 0.1 % Neut % (Auto) 72.2 % Lymph % (Auto) 20.2 % [place] % (Auto) 5.9 % Eos % (Auto) 1.3 % Baso % (Auto) 0.3 % Neut # (Auto) 5.56 (1.4-6.5) K/uL Lymph # (Auto) 1.55 (1.2-3.4) K/uL [place] # (Auto) 0.45 (0.11-0.59) K/uL Eos # (Auto) 0.10 (0-0.5) K/uL Baso # (Auto) 0.02 (0-0.2) K/uL Immature Gran # (Auto) 0.01 (0.00-0.02) K/uL VBG pH (7.36-7.41) VBG pCO2 (38-50) mmHg VBG pO2 mmHg VBG HCO3 mmol/L VBG O2 Saturation % VBG Base Excess mEq/L Barometric Pressure mm/Hg Sodium (136-145) mmol/L Potassium (3.5-5.1) mmol/L Chloride (98-107) mmol/L Carbon Dioxide (21-32) mmol/L Anion Gap (3-11) BUN (7-18) mg/dl Creatinine (0.6-1.4) mg/dl Est Cr Clr Drug Dosing ml/min Est GFR ( Amer) Est GFR (Non-Af Amer) BUN/Creatinine Ratio (10-20) Glucose (70-99) mg/dl POC Glucose 129 H (70-99) mg/dl Lactate (0.4-2.0) mmol/L Calcium (8.5-10.1) mg/dl Magnesium (1.8-2.4) mg/dl Total Bilirubin (0.2-1) mg/dl AST (15-37) U/L ALT (12-78) U/L Alkaline Phosphatase (45-117) U/L Total Protein (6.4-8.2) gm/dl Albumin (3.4-5.0) gm/dl Globulin (2.5-4.0) gm/dl Albumin/Globulin Ratio (0.9-2) Lipase (73-393) U/L Blood Type A Positive Antibody Screen NEGATIVE Diagnostic Findings XR chest 1V portable CLINICAL HISTORY: nausea, emesis dyspnea COMPARISON STUDY: 10/02/2018 FINDINGS: The bones soft tissues and hemidiaphragms are normal. The cardiomediastinal silhouette is normal. The lungs are clear. The pulmonary vasculature is normal. IMPRESSION: Negative chest. Code Status & VTE Plan Code Status Full code VTE Prophylaxis Plan VTE Prophylaxis will be ordered: Yes PG Care Time/CCT Total # of Minutes Spent Total Time Spent with Patient: Total time spent is greater than 50% in coordination of care (as documented) at patient's floor/unit and/or counseling patient: Coding Level of Care Code 80099 OBS Care - Level 3 Diagnoses Intractable vomiting with nausea R11.2 Gastroparesis K31.84 Type I diabetes mellitus E10.9 History of opioid abuse Z87.898 Anemia D64.9 DVT prophylaxis Z29.9
[2020-01-26] MEDS ORDERED: PHARMACY GLYCEMIC MGMT CONSULT STA (15:44)
[2020-01-26] MEDS: NSS + 20MEQ KCL 20 MEQ/1,000 ML BAG IV SCH (16:18)
[2020-01-26] MEDS ORDERED: GLUCOSE 10 TABS/TUBE PO PRN (17:26)
[2020-01-26] MEDS ORDERED: DEXTROSE 50% 50 ML SYRINGE IV PRN (17:26)
[2020-01-26] MEDS ORDERED: GLUCOSE 40% GEL 15 GM TUBE PO PRN (17:26)
[2020-01-26] MEDS ORDERED: GLUCAGON FOR INJ 1 MG VIAL SQ PRN (17:26)
[2020-01-26] MEDS: METOCLOPRAMIDE HCL INJ 5 MG/ML 2 ML VIAL IV PRN (18:02)
[2020-01-26] MEDS: ENOXAPARIN INJ 40 MG/0.4 ML SYR SQ SCH (19:42)
[2020-01-26] MEDS: PROMETHAZINE HCL 12.5 MG in SODIUM CHLORIDE 0.9% 50 ML IV PRN (19:42)
[2020-01-26] MEDS ORDERED: MOTILIUM 10 MG PO SCH (21:00)
[2020-01-26] MEDS: DOMPERIDONE 10 MG PO SCH (21:03)
[2020-01-27] MEDS: METOCLOPRAMIDE HCL INJ 5 MG/ML 2 ML VIAL IV PRN ×2 (00:15→09:02)
[2020-01-27] MEDS: NSS + 20MEQ KCL 20 MEQ/1,000 ML BAG IV SCH (00:27)
[2020-01-27 01:12] LABS: Appearance Urine Clear (Clear); Bilirubin Urine Negative (Negative); Blood Urine Negative (Negative); Color Urine Yellow; Glucose Urine UA Negative (Negative); Ketones Urine 4+ (Negative); Leukocyte Esterase Urine Negative (Negative); Nitrite Urine Negative (Negative); Protein Urine Negative (Negative); Specific Gravity Urine 1.024 (1.000-1.030); Urobilinogen Urine Negative (Negative); pH Urine 6.5 (4.5-7.5)
[2020-01-27] MEDS: PROMETHAZINE HCL 12.5 MG in SODIUM CHLORIDE 0.9% 50 ML IV PRN (05:53)
[2020-01-27 07:04] LABS: Basophils # (auto) 0.01 K/uL (0-0.2); Basophils % (auto) 0.1 %; Hematocrit (blood only) 33.3 % (42-52); Hemoglobin 11.2 g/dL (14.0-18.0); Immature Granulocytes # (auto) 0.04 K/uL (0.00-0.02); Immature Granulocytes % (auto) 0.3 %; Lymphocytes # (auto) 1.03 K/uL (1.2-3.4); Lymphocytes % (auto) 7.7 %; Mean Corpuscular Hgb Conc 33.6 g/dL (32-36); Mean Corpuscular Volume 89.3 fL (80-100); Mean Platelet Volume 11.1 fL (7.4-10.4); Monocytes % (auto) 8.9 %; Neutrophils # (auto) 11.13 K/uL (1.4-6.5); Platelet Count 174 K/uL (130-400); RDW Standard Deviation 42.3 fL (36.4-46.3); Red Blood Count 3.73 M/uL (4.7-6.1); White Blood Count 13.41 K/uL (4.8-10.8)
[2020-01-27 07:28] LABS: Calcium 8.3 mg/dl (8.5-10.1); Creatinine Clr Calc Pharmacy 150.1 ml/min; Est GFR (African American) 139.7; Est GFR (Non-African American) 120.5; Magnesium 1.6 mg/dl (1.8-2.4)
[2020-01-27 07:33] LABS: Ferritin 117.2 ng/ml (8-388)
[2020-01-27] MEDS ORDERED: D5W AND 1/2NSS + 20MEQ KCL 20 MEQ/1,000 ML BAG IV SCH (08:15)
[2020-01-27 08:50] LABS: Folate (Folic Acid) 7.81 ng/ml (>5.38)
[2020-01-27] MEDS: MAGNESIUM SULFATE / D5W 1 GM/100 ML BAG IV SCH ×3 (08:59→13:00)
[2020-01-27] MEDS ORDERED: METHADONE ORAL SOLN 2 MG/ML PO SCH (09:00)
[2020-01-27] MEDS ORDERED: METHADONE HCL 10 MG TAB PO SCH (09:00)
[2020-01-27] MEDS ORDERED: ACETAMINOPHEN 325 MG TAB PO PRN (09:01)
[2020-01-27] MEDS: METHADONE ORAL SOLN 2 MG/ML PO SCH (09:06)
[2020-01-27] MEDS: DOMPERIDONE 10 MG PO SCH ×3 (09:07→20:16)
[2020-01-27] MEDS: [UNRECOGNIZED DRUG - OTHER] PO SCH (09:07)
[2020-01-27] MEDS ORDERED: DKA GOAL RANGE 150-250 mg/dl ONE ×2 (09:27)
[2020-01-27] MEDS ORDERED: PHARMACY GLYCEMIC MGMT CONSULT PRN (09:36)
[2020-01-27 10:02] LABS: BUN Creatinine Ratio 11.6 (10-20); Calcium 8.9 mg/dl (8.5-10.1); Creatinine Clr Calc Pharmacy 142.1 ml/min; Est GFR (African American) 131.9; Est GFR (Non-African American) 113.8; Magnesium 1.9 mg/dl (1.8-2.4); Potassium 4.1 mmol/L (3.5-5.1)
[2020-01-27 10:03] LABS: Phosphorus 2.9 mg/dl (2.5-4.9)
--- NOTE | 2020-01-27 10:10 | Hospitalist Progress Note ---
Date of Service January 27, 2020 Assessment & Plan (1) DKA (diabetic ketoacidoses): * Here with intractable nausea and vomiting likely related to gastroparesis-he has presented this way to the hospital previously. * Now w DKA with anion gap up to 14, bicarb 17. Cr 0.9. Betahydroxybutrate elevated at 37.1. WBC elevated to 13.4k in setting of n/v/dka/stress * Pharmacy consulted for DKA * Changed IVF to D51/2NS @ 125cc/hr in the meantime and adjustments to be made by pharmacy once afternoon labs back. Given 500cc bolus LR * Low grade temp 37.8C this AM -- ordered tylenol prn * Mag low at 1.6 -- ordered 3gm IV * Increased Phenergan given increased nausea and patient reported better control in past and also stated Zofran resulted in elevated HR * NPO on admission -- will allow liquids if able to tolerate * UA with 4+ ketones * BCx NGTD after 24 hours -- follow * Labs Q4H (2) Intractable vomiting with nausea: * secondary to above (3) Gastroparesis: * As noted above * Continue home Motilium * Eat small meals when taking p.o. (4) Type I diabetes mellitus: * With insulin pump in place left lower abdomen, to be changed on 01/27 per patient * Pharmacy consulted as above * A1c pending (5) History of opioid abuse: * Now on methadone 39 mg once daily * Continue methadone if can tolerate p.o. in the morning (6) Anemia: * Hemoglobin mildly low at 13.2 which is likely a bit hemoconcentrated given the persistent nausea/vomiting * Normocytic * Iron studies: iron at 53, TIBC 256, transferrin 188 with trans % sat 20, ferritin 117.2. * B12 559, Folate 7.8 wnl. * H/h on AM labs 11.2/33.3 * TSH was recently normal 3 months ago * Will add FOCB and hemoccult for completeness * CBC in the morning (7) DVT prophylaxis: * Lovenox SQ Dispo: serial labs and correction of acidosis as above. Patient hopeful for discharge on Tuesday Admission and Anticipated Discharge Date Admission Date: January 26, 2020 Subjective Patient evaluated this morning. Still nausea, not feeling well. Reports no further vomiting since around 4am this morning. Able to tolerate some water this morning but still with nausea. States previous relief with promethazine. [place] some chills this morning and had low grade temp. Denies fever prior to admission. No bowel movement today but denies any abdominal pain, chest pain, shortness of breath or dysuria at this time. Changes insulin pump every three days but hopes to be discharged tomorrow before he will need to change his current pump. Review of Systems Review of Systems: All systems reviewed & are unremarkable except as noted in HPI & below Physical Exam Constitutional: WD/WN, vitals as above + ill appearing and cooperative; no acute distress Eyes: + anicteric sclerae and PERRL Neck: trachea midline, no thyromegaly Respiratory: normal respiratory effort, lungs clear to auscultation Cardiovascular: RRR, no murmur, no edema Gastrointestinal (Abdomen): normal bowel sounds, soft, nontender, no hepatosplenomegaly insulin pump to LLQ Musculoskeletal: no cyanosis or clubbing, extremities motor strength 5/5 Skin: cool, moist Neurologic: PERRL, EOMI, accommodation nl, no face palsy, no dysarthria Psychiatric: Orientation: alert and oriented x 3 Affect: + flat affect Lymphatic: no cervical or axillary lymphadenopathy Results & Data Results & Data ([facility]) Vital Signs (Past 12 Hours) Vital Signs Temp Pulse Resp BP BP Pulse Ox 01/27/20 07:26 37.8 C H 88 18 111/63 98 01/27/20 03:00 36.9 C 86 20 152/79 H 94 01/26/20 23:00 37.3 C 95 H 20 122/76 98 Laboratory Results 01/27/20 01/27/20 01/27/20 Range/Units 11:25 10:29 09:39 WBC (4.8-10.8) K/uL RBC (4.7-6.1) M/uL Hgb (14.0-18.0) g/dL Hct (42-52) % MCV (80-100) fL MCH (25-34) pg MCHC (32-36) g/dL RDW Std Deviation (36.4-46.3) fL RDW Coeff of Carlos (11.5-14.5) % Plt Count (130-400) K/uL MPV (7.4-10.4) fL Immature Gran % (Auto) % Neut % (Auto) % Lymph % (Auto) % [place] % (Auto) % Eos % (Auto) % Baso % (Auto) % Neut # (Auto) (1.4-6.5) K/uL Lymph # (Auto) (1.2-3.4) K/uL [place] # (Auto) (0.11-0.59) K/uL Eos # (Auto) (0-0.5) K/uL Baso # (Auto) (0-0.2) K/uL Immature Gran # (Auto) (0.00-0.02) K/uL VBG pH 7.42 H (7.36-7.41) Sodium (136-145) mmol/L Potassium (3.5-5.1) mmol/L Chloride (98-107) mmol/L Carbon Dioxide (21-32) mmol/L Anion Gap (3-11) BUN (7-18) mg/dl Creatinine (0.6-1.4) mg/dl Est Cr Clr Drug Dosing ml/min Est GFR ( Amer) Est GFR (Non-Af Amer) BUN/Creatinine Ratio (10-20) Glucose (70-99) mg/dl POC Glucose 200 H 215 H (70-99) mg/dl Estimat Average Glucose Hemoglobin A1c Calcium (8.5-10.1) mg/dl Phosphorus (2.5-4.9) mg/dl Magnesium (1.8-2.4) mg/dl Iron (35-175) mcg/dl TIBC (250-450) mcg/dl Transferrin (200-360) mg/dl Transferrin % Sat (20-50) % Ferritin (8-388) ng/ml Vitamin B12 (211-911) pg/ml Folate (>5.38) ng/ml Beta-Hydroxybutyric Acd (0.2-2.81) mg/dl Urine Color Urine Appearance (Clear) Urine pH (4.5-7.5) Ur Specific Alligator (1.000-1.030) Urine Protein (Negative) Urine Glucose (UA) (Negative) Urine Ketones (Negative) Urine Blood (Negative) Urine Nitrite (Negative) Urine Bilirubin (Negative) Urine Urobilinogen (Negative) Ur Leukocyte Esterase (Negative) Blood Type Antibody Screen 01/27/20 01/27/20 01/27/20 Range/Units 09:39 06:23 06:01 WBC (4.8-10.8) K/uL RBC (4.7-6.1) M/uL Hgb (14.0-18.0) g/dL Hct (42-52) % MCV (80-100) fL MCH (25-34) pg MCHC (32-36) g/dL RDW Std Deviation (36.4-46.3) fL RDW Coeff of Carlos (11.5-14.5) % Plt Count (130-400) K/uL MPV (7.4-10.4) fL Immature Gran % (Auto) % Neut % (Auto) % Lymph % (Auto) % [place] % (Auto) % Eos % (Auto) % Baso % (Auto) % Neut # (Auto) (1.4-6.5) K/uL Lymph # (Auto) (1.2-3.4) K/uL [place] # (Auto) (0.11-0.59) K/uL Eos # (Auto) (0-0.5) K/uL Baso # (Auto) (0-0.2) K/uL Immature Gran # (Auto) (0.00-0.02) K/uL VBG pH (7.36-7.41) Sodium 138 (136-145) mmol/L Potassium 4.1 (3.5-5.1) mmol/L Chloride 107 (98-107) mmol/L Carbon Dioxide 17 L (21-32) mmol/L Anion Gap 14.0 H (3-11) BUN 11 (7-18) mg/dl Creatinine 0.94 (0.6-1.4) mg/dl Est Cr Clr Drug Dosing 142.1 ml/min Est GFR ( Amer) 131.9 Est GFR (Non-Af Amer) 113.8 BUN/Creatinine Ratio 11.6 (10-20) Glucose 201 H (70-99) mg/dl POC Glucose 192 H (70-99) mg/dl Estimat Average Glucose Hemoglobin A1c Calcium 8.9 (8.5-10.1) mg/dl Phosphorus 2.9 (2.5-4.9) mg/dl Magnesium 1.9 (1.8-2.4) mg/dl Iron (35-175) mcg/dl TIBC (250-450) mcg/dl Transferrin (200-360) mg/dl Transferrin % Sat (20-50) % Ferritin (8-388) ng/ml Vitamin B12 (211-911) pg/ml Folate (>5.38) ng/ml Beta-Hydroxybutyric Acd 37.13 H (0.2-2.81) mg/dl Urine Color Urine Appearance (Clear) Urine pH (4.5-7.5) Ur Specific Alligator (1.000-1.030) Urine Protein (Negative) Urine Glucose (UA) (Negative) Urine Ketones (Negative) Urine Blood (Negative) Urine Nitrite (Negative) Urine Bilirubin (Negative) Urine Urobilinogen (Negative) Ur Leukocyte Esterase (Negative) Blood Type Antibody Screen 01/27/20 01/27/20 01/27/20 Range/Units 06:01 06:01 06:01 WBC (4.8-10.8) K/uL RBC (4.7-6.1) M/uL Hgb (14.0-18.0) g/dL Hct (42-52) % MCV (80-100) fL MCH (25-34) pg MCHC (32-36) g/dL RDW Std Deviation (36.4-46.3) fL RDW Coeff of Carlos (11.5-14.5) % Plt Count (130-400) K/uL MPV (7.4-10.4) fL Immature Gran % (Auto) % Neut % (Auto) % Lymph % (Auto) % [place] % (Auto) % Eos % (Auto) % Baso % (Auto) % Neut # (Auto) (1.4-6.5) K/uL Lymph # (Auto) (1.2-3.4) K/uL [place] # (Auto) (0.11-0.59) K/uL Eos # (Auto) (0-0.5) K/uL Baso # (Auto) (0-0.2) K/uL Immature Gran # (Auto) (0.00-0.02) K/uL VBG pH (7.36-7.41) Sodium 139 (136-145) mmol/L Potassium 4.0 (3.5-5.1) mmol/L Chloride 108 H (98-107) mmol/L Carbon Dioxide 19 L (21-32) mmol/L Anion Gap 12.0 H (3-11) BUN 11 (7-18) mg/dl Creatinine 0.89 (0.6-1.4) mg/dl Est Cr Clr Drug Dosing 150.1 ml/min Est GFR ( Amer) 139.7 Est GFR (Non-Af Amer) 120.5 BUN/Creatinine Ratio 12.0 (10-20) Glucose 196 H (70-99) mg/dl POC Glucose (70-99) mg/dl Estimat Average Glucose Pending Hemoglobin A1c Pending Calcium 8.3 L (8.5-10.1) mg/dl Phosphorus (2.5-4.9) mg/dl Magnesium 1.6 L (1.8-2.4) mg/dl Iron 53 (35-175) mcg/dl TIBC 256 (250-450) mcg/dl Transferrin 188 L (200-360) mg/dl Transferrin % Sat 20 (20-50) % Ferritin 117.2 (8-388) ng/ml Vitamin B12 559 (211-911) pg/ml Folate 7.81 (>5.38) ng/ml Beta-Hydroxybutyric Acd (0.2-2.81) mg/dl Urine Color Urine Appearance (Clear) Urine pH (4.5-7.5) Ur Specific Alligator (1.000-1.030) Urine Protein (Negative) Urine Glucose (UA) (Negative) Urine Ketones (Negative) Urine Blood (Negative) Urine Nitrite (Negative) Urine Bilirubin (Negative) Urine Urobilinogen (Negative) Ur Leukocyte Esterase (Negative) Blood Type Antibody Screen 01/27/20 01/27/20 01/27/20 Range/Units 06:01 00:50 00:11 WBC 13.41 H (4.8-10.8) K/uL RBC 3.73 L (4.7-6.1) M/uL Hgb 11.2 L (14.0-18.0) g/dL Hct 33.3 L (42-52) % MCV 89.3 (80-100) fL MCH 30.0 (25-34) pg MCHC 33.6 (32-36) g/dL RDW Std Deviation 42.3 (36.4-46.3) fL RDW Coeff of Carlos 13.0 (11.5-14.5) % Plt Count 174 (130-400) K/uL MPV 11.1 H (7.4-10.4) fL Immature Gran % (Auto) 0.3 % Neut % (Auto) 83.0 % Lymph % (Auto) 7.7 % [place] % (Auto) 8.9 % Eos % (Auto) 0.0 % Baso % (Auto) 0.1 % Neut # (Auto) 11.13 H (1.4-6.5) K/uL Lymph # (Auto) 1.03 L (1.2-3.4) K/uL [place] # (Auto) 1.20 H (0.11-0.59) K/uL Eos # (Auto) 0.00 (0-0.5) K/uL Baso # (Auto) 0.01 (0-0.2) K/uL Immature Gran # (Auto) 0.04 H (0.00-0.02) K/uL VBG pH (7.36-7.41) Sodium (136-145) mmol/L Potassium (3.5-5.1) mmol/L Chloride (98-107) mmol/L Carbon Dioxide (21-32) mmol/L Anion Gap (3-11) BUN (7-18) mg/dl Creatinine (0.6-1.4) mg/dl Est Cr Clr Drug Dosing ml/min Est GFR ( Amer) Est GFR (Non-Af Amer) BUN/Creatinine Ratio (10-20) Glucose (70-99) mg/dl POC Glucose 98 (70-99) mg/dl Estimat Average Glucose Hemoglobin A1c Calcium (8.5-10.1) mg/dl Phosphorus (2.5-4.9) mg/dl Magnesium (1.8-2.4) mg/dl Iron (35-175) mcg/dl TIBC (250-450) mcg/dl Transferrin (200-360) mg/dl Transferrin % Sat (20-50) % Ferritin (8-388) ng/ml Vitamin B12 (211-911) pg/ml Folate (>5.38) ng/ml Beta-Hydroxybutyric Acd (0.2-2.81) mg/dl Urine Color Yellow Urine Appearance Clear (Clear) Urine pH 6.5 (4.5-7.5) Ur Specific Alligator 1.024 (1.000-1.030) Urine Protein Negative (Negative) Urine Glucose (UA) Negative (Negative) Urine Ketones 4+ H (Negative) Urine Blood Negative (Negative) Urine Nitrite Negative (Negative) Urine Bilirubin Negative (Negative) Urine Urobilinogen Negative (Negative) Ur Leukocyte Esterase Negative (Negative) Blood Type Antibody Screen 01/26/20 Range/Units 11:20 WBC (4.8-10.8) K/uL RBC (4.7-6.1) M/uL Hgb (14.0-18.0) g/dL Hct (42-52) % MCV (80-100) fL MCH (25-34) pg MCHC (32-36) g/dL RDW Std Deviation (36.4-46.3) fL RDW Coeff of Carlos (11.5-14.5) % Plt Count (130-400) K/uL MPV (7.4-10.4) fL Immature Gran % (Auto) % Neut % (Auto) % Lymph % (Auto) % [place] % (Auto) % Eos % (Auto) % Baso % (Auto) % Neut # (Auto) (1.4-6.5) K/uL Lymph # (Auto) (1.2-3.4) K/uL [place] # (Auto) (0.11-0.59) K/uL Eos # (Auto) (0-0.5) K/uL Baso # (Auto) (0-0.2) K/uL Immature Gran # (Auto) (0.00-0.02) K/uL VBG pH (7.36-7.41) Sodium (136-145) mmol/L Potassium (3.5-5.1) mmol/L Chloride (98-107) mmol/L Carbon Dioxide (21-32) mmol/L Anion Gap (3-11) BUN (7-18) mg/dl Creatinine (0.6-1.4) mg/dl Est Cr Clr Drug Dosing ml/min Est GFR ( Amer) Est GFR (Non-Af Amer) BUN/Creatinine Ratio (10-20) Glucose (70-99) mg/dl POC Glucose (70-99) mg/dl Estimat Average Glucose Hemoglobin A1c Calcium (8.5-10.1) mg/dl Phosphorus (2.5-4.9) mg/dl Magnesium (1.8-2.4) mg/dl Iron (35-175) mcg/dl TIBC (250-450) mcg/dl Transferrin (200-360) mg/dl Transferrin % Sat (20-50) % Ferritin (8-388) ng/ml Vitamin B12 (211-911) pg/ml Folate (>5.38) ng/ml Beta-Hydroxybutyric Acd (0.2-2.81) mg/dl Urine Color Urine Appearance (Clear) Urine pH (4.5-7.5) Ur Specific [place]igator (1.000-1.030) Urine Protein (Negative) Urine Glucose (UA) (Negative) Urine Ketones (Negative) Urine Blood (Negative) Urine Nitrite (Negative) Urine Bilirubin (Negative) Urine Urobilinogen (Negative) Ur Leukocyte Esterase (Negative) Blood Type A Positive Antibody Screen NEGATIVE PG Care Time/CCT Total # of Minutes Spent Total Time Spent with Patient: Total time spent is greater than 50% in coordination of care (as documented) at patient's floor/unit and/or counseling patient: Coding Level of Care Code 11002 Subseq Hosp Care Lvl 3 Diagnoses DKA (diabetic ketoacidoses) E11.10 Intractable vomiting with nausea R11.2 Gastroparesis K31.84 Type I diabetes mellitus E10.9 History of opioid abuse Z87.898 Anemia D64.9 DVT prophylaxis Z29.9
[2020-01-27] MEDS: INSULIN REGULAR 250 UNITS in SODIUM CHLORIDE 0.9% 247.5 ML IV SCH ×2 (10:27→13:59)
[2020-01-27] MEDS ORDERED: PROMETHAZINE HCL 25 MG in SODIUM CHLORIDE 0.9% 50 ML IV PRN (12:06)
[2020-01-27] MEDS: INSULIN ASPART 100 UNITS/ML 3 ML PEN SC SCH ×2 (12:09→17:14)
--- NOTE | 2020-01-27 12:09 | Pharmacy Report ---
Pharmacy Glycemic Short Note 2 - Date of Service January 27, 2020 - Glycemic Short BSG Results (Last 24 hours): 01/27/20 01/27/20 01/27/20 00:11 06:01 06:23 Glucose 196 H POC Glucose 98 192 H 01/27/20 01/27/20 01/27/20 09:39 10:29 11:25 Glucose 201 H POC Glucose 215 H 200 H OUTPATIENT ANTIDIABETIC REGIMEN: * Humalog insulin pump * basal rate: 1.2 units/hr (~29 units/day) * carb ratio: 1:5-6 ASSESSMENT: * Luis is a 24 yr old T1DM with h/o gastroparesis admitted with intractable vomiting with nausea * Patent was started on IV insulin infusion this morning for mild DKA. I anticipate acidosis will reserve rather quickly. * Patient has insulin pump and supplies here with him. Once DKA resolves, we should be able to transition back to his humalog pump. He is able to adjust basal rate if needed. He is currently NPO. PLAN FOR INPATIENT GLYCEMIC CONTROL: * IV insulin infusion * Started at 3.1 units/hr, then titrate per protocol * Goal range: 140 - 180 * Patient to have labs repeated 01/26 @ 1730. If anion gap and CO2 remain within normal limits, IV insulin infusion may be transitioned to humalog insulin pump. * Have patient connect home humalog insulin pump * d/c IV insulin infusion 1 hour after pump is resumed * Humalog pump to be managed by patient at his home settings * If insulin drip is transitioned to pump, d/c current fluids and start 1/2 NS + 20 meq at 125 ml/hr PLAN FOR DISCHARGE: * tbd
[2020-01-27] MEDS ORDERED: LACTATED RINGER'S 500 ML IV ONE (12:13)
[2020-01-27 13:37] LABS: BUN Creatinine Ratio 9.8 (10-20); Calcium 8.3 mg/dl (8.5-10.1); Creatinine Clr Calc Pharmacy 136.3 ml/min; Est GFR (African American) 125.4; Est GFR (Non-African American) 108.2; Magnesium 2.4 mg/dl (1.8-2.4); Phosphorus 2.8 mg/dl (2.5-4.9); Potassium 4.1 mmol/L (3.5-5.1)
[2020-01-27] MEDS ORDERED: Nursing to Pharmacy Communication SCH (15:45)
[2020-01-27 17:52] LABS: BUN Creatinine Ratio 8.4 (10-20); Calcium 8.3 mg/dl (8.5-10.1); Creatinine Clr Calc Pharmacy 129.7 ml/min; Est GFR (African American) 118.1; Est GFR (Non-African American) 101.9; Magnesium 2.5 mg/dl (1.8-2.4); Phosphorus 2.4 mg/dl (2.5-4.9)
[2020-01-27] MEDS ORDERED: INSULIN HUMAN LISPRO (humaLOG) 100 UNITS/ML VIAL SC PRN (19:00)
[2020-01-27] MEDS: SODIUM CHLOR 0.45% + 20MEQ KCL 20 MEQ/1,000 ML BAG IV SCH (20:09)
[2020-01-27] MEDS: ENOXAPARIN INJ 40 MG/0.4 ML SYR SQ SCH (20:16)
[2020-01-27 21:54] LABS: BUN Creatinine Ratio 7.5 (10-20); Calcium 8.6 mg/dl (8.5-10.1); Creatinine Clr Calc Pharmacy 143.6 ml/min; Est GFR (African American) 133.6; Est GFR (Non-African American) 115.3; Magnesium 2.2 mg/dl (1.8-2.4); Potassium 3.9 mmol/L (3.5-5.1)
[2020-01-27 21:56] LABS: Phosphorus 1.8 mg/dl (2.5-4.9)
[2020-01-28 01:50] LABS: BUN Creatinine Ratio 9.3 (10-20); Calcium 7.9 mg/dl (8.5-10.1); Est GFR (African American) 145.9; Est GFR (Non-African American) 125.9; Phosphorus 2.1 mg/dl (2.5-4.9)
[2020-01-28] MEDS: CARBOHYDRATES FOR HYPOGLYCEMIA PO PRN ×3 (02:33→03:26)
[2020-01-28] MEDS: SODIUM CHLOR 0.45% + 20MEQ KCL 20 MEQ/1,000 ML BAG IV SCH ×2 (04:15→12:11)
[2020-01-28 05:48] LABS: Estimated Average Glucose 160 mg/dl; Hemoglobin A1C 7.2 % (4.5-5.6)
[2020-01-28 06:23] LABS: Calcium 8.1 mg/dl (8.5-10.1); Creatinine Clr Calc Pharmacy 145.2 ml/min; Est GFR (African American) 135.4; Est GFR (Non-African American) 116.8; Magnesium 1.9 mg/dl (1.8-2.4); Phosphorus 2.1 mg/dl (2.5-4.9); Potassium 4.6 mmol/L (3.5-5.1)
[2020-01-28 08:44] LABS: Hematocrit (blood only) 33.5 % (42-52); Hemoglobin 11.1 g/dL (14.0-18.0); Mean Corpuscular Hemoglobin 29.8 pg (25-34); Mean Corpuscular Hgb Conc 33.1 g/dL (32-36); Mean Corpuscular Volume 89.8 fL (80-100); Mean Platelet Volume 10.6 fL (7.4-10.4); Platelet Count 159 K/uL (130-400); RDW Coefficient of Variation 13.2 % (11.5-14.5); RDW Standard Deviation 43.6 fL (36.4-46.3); Red Blood Count 3.73 M/uL (4.7-6.1); White Blood Count 5.69 K/uL (4.8-10.8)
--- NOTE | 2020-01-28 08:58 | Pharmacy Report ---
Pharmacy Glycemic Short Note 2 - Date of Service January 28, 2020 - Glycemic Short BSG Results (Last 24 hours): 01/27/20 01/27/20 01/27/20 09:39 10:29 11:25 Glucose 201 H POC Glucose 215 H 200 H 01/27/20 01/27/20 01/27/20 12:30 13:14 13:28 Glucose 160 H POC Glucose 182 H 133 H 01/27/20 01/27/20 01/27/20 13:45 13:59 15:02 Glucose POC Glucose 137 H 172 H 160 H 01/27/20 01/27/20 01/27/20 16:00 17:02 17:23 Glucose 144 H POC Glucose 153 H 145 H 01/27/20 01/27/20 01/27/20 18:58 20:03 21:32 Glucose 144 H POC Glucose 190 H 158 H 01/28/20 01/28/20 01/28/20 01:23 02:20 02:22 Glucose 66 L POC Glucose 54 L* 57 L* 01/28/20 01/28/20 01/28/20 02:49 02:51 03:20 Glucose POC Glucose 53 L* 51 L* 55 L* 01/28/20 01/28/20 01/28/20 03:23 03:50 04:43 Glucose POC Glucose 64 L* 111 H 198 H 01/28/20 01/28/20 05:39 07:29 Glucose 250 H POC Glucose 279 H OUTPATIENT ANTIDIABETIC REGIMEN: * Humalog insulin pump * basal rate: 1 unit/hr from 9191-6191 1.2 units/hr from 7896-7301 (27 units/day) * carb ratio: 6095-6019 is 1:7.7 7395-2564 is 1:9.5 7303-0968 is 1:9 * SF: 36 * Goal range 90-140 mg/dL ASSESSMENT: 01/27: * IV insulin infusion (1.9 units/hr) was discontinued last evening at ~2000 following a one hour overlap with patient's own insulin pump (1.2 units/hr). BSG was 158 mg/dL at this time. Patient was started on a full liquid diet as well. * An overnight BSG was checked at ~0200 and patient was found to be hypoglycemic at 54 mg/dL. He was treated with 60 gm CHO which eventually increased his BSG to 111 mg/dL. * Fasting BSG this AM was 279 mg/dL which I believe is secondary to carbohydrates received for hypoglycemia. 01/26: * Luis is a 24 yr old T1DM with h/o gastroparesis admitted with intractable vomiting with nausea * Patent was started on IV insulin infusion this morning for mild DKA. I anticipate acidosis will reserve rather quickly. * Patient has insulin pump and supplies here with him. Once DKA resolves, we should be able to transition back to his humalog pump. He is able to adjust basal rate if needed. He is currently NPO. PLAN FOR INPATIENT GLYCEMIC CONTROL: * Continue home insulin pump setting PLAN FOR DISCHARGE: * Patient reports frequent lows overnight. Recommend decreasing basal rate by 10-20%. Suggest: * 0.8 units/hr from 4725-1891 * 1 unit/hr from 3251-0539 * 1.2 units/hr from 7471-9382 * Recommend following bolus insulin regimen as patient admits he does not bolus himself often. (Basal heavy regimen).
[2020-01-28] MEDS: [UNRECOGNIZED DRUG - OTHER] PO SCH (10:27)
[2020-01-28] MEDS ORDERED: METHADONE PO SCH (10:30)
[2020-01-28] MEDS: METHADONE ORAL SOLN 2 MG/ML PO SCH (10:34)
[2020-01-28] MEDS: DOMPERIDONE 10 MG PO SCH ×2 (10:35→13:58)
--- NOTE | 2020-01-28 16:25 | Discharge Summary ---
Date of Service January 28, 2020 Admission HPI Per Admitting Provider This patient is a 24-year-old male with a history of type 1 diabetes, gastroparesis, history of heroin abuse now on methadone, who presents to the ER with intractable nausea and vomiting. He took sublingual Zofran at home but was not able to keep anything down. When he arrived in the ER, he was reportedly pale and diaphoretic and looked bad. Fortunately, his CBC only showed mild anemia stable from previous, and had a completely normal CMP and lipase. He has been afebrile, denies any abdominal pains. He denies fevers or chills, no headache, no lightheadedness, no urinary symptoms, no shortness of breath or cough, no chest pain. He was given IV fluids, IV Reglan and IV Phenergan. Attempts were made to see if he can tolerate p.o. and he could not as he was vomiting again. His chest x-ray was negative. His labs were fairly unremarkable and he was not in DKA. He will be admitted on observation for intractable nausea/vomiting likely related to his gastroparesis. Principal Diagnosis DKA Discharge Exam Constitutional WD/WN, vitals as above Respiratory normal respiratory effort, lungs clear to auscultation Cardiovascular RRR, no murmur, no edema Gastrointestinal (Abdomen) Inspection/Auscultation: abdomen normal to inspection and normal bowel sounds; abdomen not distended Percussion/Palpation: abdomen soft; abdomen nontender Musculoskeletal no cyanosis or clubbing, extremities motor strength 5/5 Skin no rashes, warm and dry Neurologic moves all extremities and awake Psychiatric A+Ox3, euthymic affect Discharge Data Allergies Allergy/AdvReac Type Severity Reaction Status Date / Time Cephalosporins Allergy Intermediate Hives Verified 01/26/20 17:34 Sulfa (Sulfonamide Allergy Intermediate Hives Verified 01/26/20 17:34 Antibiotics) azithromycin [From Zithromax] AdvReac Intermediate Hives Verified 01/26/20 11:19 Consultations 01/26/20 15:20 ED Decision to Admit Stat Hospital Course (1) DKA (diabetic ketoacidoses): * Here with intractable nausea and vomiting likely related to gastroparesis-he has presented this way to the hospital previously. Now resolved * Developed DKA 8/2 with anion gap up to 14, bicarb 17. Cr 0.9. Betahydroxybutrate elevated at 37.1. WBC elevated to 13.4k in setting of n/v/dka/stress - labs have resolved, acidosis now corrected, blood sugars trending down. * Pharmacy consulted for DKA * Changed IVF to D51/2NS @ 125cc/hr in the meantime and adjustments to be made by pharmacy once afternoon labs back. Given 500cc bolus LR * Low grade temp 37.8C this AM -- ordered tylenol prn * Mag low at 1.6 -- ordered 3gm IV * Increased Phenergan given increased nausea and patient reported better control in past and also stated Zofran resulted in elevated HR * NPO on admission -- will allow liquids if able to tolerate * UA with 4+ ketones * BCx NGTD after 48 hours * Phos 2.1 today - encourage diet with high phosphate foods. Will supplement x 3 days until appetite is more normal (2) Intractable vomiting with nausea: * secondary to above (3) Gastroparesis: * As noted above * Continue home Motilium * Eat small meals when taking p.o. (4) Type I diabetes mellitus: * With insulin pump in place left lower abdomen, to be changed on 01/27 per patient * Pharmacy consulted as above - recommend decreasing basal rate by 11% as patient has been having lows at night * A1c 7.2 (5) History of opioid abuse: * Now on methadone 39 mg once daily * Continue methadone if can tolerate p.o. in the morning (6) Anemia: * Appears chronic * Normocytic * Iron studies: iron at 53, TIBC 256, transferrin 188 with trans % sat 20, ferritin 117.2. * B12 559, Folate 7.8 wnl. * H/h on AM labs 11.2/33.3 * TSH was recently normal 3 months ago * FOCB negative * Follow with pcp (7) DVT prophylaxis: * Lovenox SQ Total Time Total Time Spent Total Time Spent (In Minutes): greater than 30 minutes Discharge Plan Discharge Items Patient Disposition: Home - Self-Care Reason For Visit: INTRACTABLE N/V, DKA Discharge Diagnosis: DKA Condition on Discharge: Good Activity: Resume your previous activity Non-emergency contact: Primary Care Provider Call non-emergency contact if: you have any medication questions Follow-up/Referrals: Oneil Tinajero MD [Primary Care Provider] - (Follow up within one week ) Diet: Regular Addtl Attending Provider Instructions: (1) DKA (diabetic ketoacidoses): Our glycemic pharmacist has made the following recommendations for your insulin pump dosing: Because your are having frequent lows overnight, recommend decreasing basal rate by 10-20%. Suggest: 0.8 units/hr from 6080-2501 1 unit/hr from 6442-3473 1.2 units/hr from 2336-5266 Please follow your bolus insulin regimen Your A1c was 7.2% (2) Hypophosphatemia Your phosphorous was low in your blood. Try to eat high phosphate foods. A list has been attached for you to reference You will take phosphorous supplementation for the next three days until your appetite is more normal. Pending Studies at Discharge: No Stand-Alone Forms: [facility], Smoking Cessation Medications and DC Order Prescriptions: New potassium phosphate, monobasic 500 mg tablet,soluble 500 mg PO BID Qty: 6 RF: 0 Continued insulin lispro 100 unit/mL insulin pen 34 units SQ DAILY RF: 0 methadone 10 mg Tablet 39 mg PO QAM RF: 0 ondansetron 4 mg tablet,disintegrating 4 mg PO Q6 PRN (Reason: Nausea And Vomiting) RF: 0 Motilium 10 mg PO TID RF: 0 glucagon 3 mg/actuation spray,non-aerosol 3 mg INTNAS ONCE PRN (Reason: bsg emergency) RF: 0 Discharge Orders: Discharge Order (Routine); Ordered 01/28/20 Ordered By: Kinza Mccarty/Other Patient Handouts: Hypophosphatemia Dc Admission Data Admit Date/Time: 01/27/20 12:24 Attending Provider: Thomas Jarvis Admit Provider: Carly Mccullough Primary Care Provider: Oneil Tinajero Other Providers: Thomas Jarvis Other Interventions: Discharge Summary Assessment (RN) Last Done: 01/28/20 17:47 DC Date/Time DO NOT enter until pt leaves facility: 01/28/20 18:45 Supervising Physician Co-Signing Physician Notes I supervised Kinza Celeste NP on this patient's care. I examined the patient today independently of her. I discussed the plan of care with her with the plan being as written in her note except for any following changes/exceptions: None. Feeling better. No nausea. Blood sugars were low overnight, but rebounding this afternoon and not too high. Coding Level of Care Code D/C Day Management >30 mins Diagnoses DKA (diabetic ketoacidoses) E11.10 Intractable vomiting with nausea R11.2 Gastroparesis K31.84 Type I diabetes mellitus E10.9 History of opioid abuse Z87.898 Anemia D64.9 DVT prophylaxis Z29.9
[2020-01-28] MEDS ORDERED: POT PHOSPHATE MONOBASIC W/ SOD TAB PO STA (16:32)
== END 2020-01-28 18:45 | disposition home or self-care (01) ==
LOC: 2N 10:29 → ED 10:29 → SUATTDRO 15:44 → 2N 16:42 → SUATTDRO 01-27 12:24
DX: Z88.1 Allergy status to other antibiotic agents; E10.43 Type 1 diabetes mellitus with diabetic autonomic (poly)neuropathy; E83.39 Other disorders of phosphorus metabolism; E10.10 Type 1 diabetes mellitus with ketoacidosis without coma; Z79.891 Long term (current) use of opiate analgesic; Z87.891 Personal history of nicotine dependence; D64.9 Anemia, unspecified; Z96.41 Presence of insulin pump (external) (internal); Z88.2 Allergy status to sulfonamides

== ENCOUNTER 2020-02-04 11:02 | Observation (INO) ==
[2020-02-04] MEDS ORDERED: DiphenhydrAMINE HCL 50 MG/ML VIAL IV STA (11:55)
[2020-02-04] MEDS ORDERED: METOCLOPRAMIDE HCL INJ 5 MG/ML 2 ML VIAL IV STA (11:55)
[2020-02-04] MEDS ORDERED: ONDANSETRON INJ 2 MG/ML 2 ML VIAL IV STA (11:55)
--- NOTE | 2020-02-04 11:55 | Emergency Department Note ---
History of Present Illness General Chief complaint: Vomiting Stated complaint: NAUSEA,VOMITING Time Seen by Provider: 02/04/20 11:38 History of Present Illness Maximum Pain Intensity: 0 This is a 25-year-old male with a past medical history sniffing for that for gastroparesis, type 1 diabetes that presents to the emergency department via private vehicle with complaints "nausea and vomiting". Patient was recently admitted to the hospital earlier this month for similar presentation. He states that he was feeling well up until about 9 AM this morning he developed similar symptoms that prompted his arrival earlier this month. He denies any trauma or injury. No recent spicy foods. He states that he vomited several times in the waiting room here. He denies any chest pain, shortness of breath, fevers, chills, diarrhea, constipation or abdominal pain. No discomfort at the time, rather just significant nausea. He is a type I diabetic and is currently using an insulin pump. He denies any alcohol or drug use. Home Medications Home Medications Medication Instructions Recorded Confirmed Type Motilium 10 mg PO TID 12/10/19 02/04/20 History methadone 39 mg PO QAM 12/10/19 02/04/20 History ondansetron 4 mg PO Q6 PRN 12/10/19 02/04/20 History insulin lispro 100 unit/mL 34 units SQ DAILY ml 01/15/20 02/04/20 History subcutaneous pen glucagon 3 mg INTNAS ONCE PRN 01/26/20 02/04/20 History potassium phosphate, monobasic 500 mg PO BID #6 tab 01/28/20 02/04/20 Rx Allergies Allergy/AdvReac Type Severity Reaction Status Date / Time Cephalosporins Allergy Intermediate Hives Verified 02/04/20 12:36 Sulfa (Sulfonamide Allergy Intermediate Hives Verified 02/04/20 12:36 Antibiotics) azithromycin [From Zithromax] AdvReac Intermediate Hives Verified 02/04/20 12:36 Past Med/Surg History Medical History Anemia (Resolved) Diabetes Gastroparesis Hepatitis History of opioid abuse Pneumomediastinum Soft tissue abscess Surgical History No pertinent past surgical history Family History Other Cancer Diabetes Heart disease Hypertension Social History Smoking Status: Never smoker Second Hand Exposure: No; Hx Alcohol Use: No Hx Substance Use: Yes Prescribed Medications: Marijuana Last Used Substance: Unknown Last Used Substance Other:: Last use of MJ was 2 weeks ago Substance Use Type Other:: history of iv drug use Preferred Language: Guamanian Communication Ability: Effective [employer] Manager Required: No Beliefs That Will Affect Care: None marital status: Single Current Living Situation: Parent Feels Safe at Home: Yes Review of Systems A total of 10 systems reviewed and were otherwise negative Physical Exam Vital Signs Vital Signs - 24 hr 02/04/20 11:35 02/04/20 13:02 02/04/20 14:02 Temperature 37.3 C Temperature Source Oral Pulse Rate 80 Pulse Rate [Right Finger] 63 65 Respiratory Rate 18 20 18 Blood Pressure 135/86 Blood Pressure [Left Arm] 133/84 129/75 Blood Pressure Mean 102 Blood Pressure Mean [Left Arm] 100 93 Pulse Oximetry 99 97 98 Oxygen Delivery Method Room Air Room Air Sepsis Recent Fever Within 48 Hours No Sepsis New/Unexplained Change in Mental Status No Sepsis Action Taken by Nursing No Action Required 02/04/20 16:00 02/04/20 17:30 02/04/20 18:30 Temperature Temperature Source Pulse Rate Pulse Rate [Right Finger] 60 113 H 117 H Respiratory Rate 20 20 16 Blood Pressure Blood Pressure [Left Arm] 141/82 H 136/81 122/54 L Blood Pressure Mean Blood Pressure Mean [Left Arm] 101 99 76 Pulse Oximetry 96 100 100 Oxygen Delivery Method Room Air Room Air Room Air Sepsis Recent Fever Within 48 Hours Sepsis New/Unexplained Change in Mental Status Sepsis Action Taken by Nursing VITAL SIGNS - Vital signs and nursing notes were reviewed. Stable and afebrile. GENERAL -25-year-old male appearing his stated age who is in no acute distress. Communicates well with provider and answers questions appropriately. SKIN - Without rashes. No meningeal or petechial rash. HEAD - NC/AT. EYES - PERRL with EOMI bilaterally. Sclera anicteric. EARS - No deformities of external structures noted on gross examination bilaterally. NOSE - Midline and without cyanosis. No epistaxis or purulent drainage noted. MOUTH/OROPHARYNX - Without perioral cyanosis. NECK - Neck with FROM. No nuchal rigidity. LUNGS - Chest wall symmetric without accessory muscle use, intercostals retractions, or central cyanosis. Normal vesicular breath sounds CTA B/L. No wheezes, rales, or rhonchi appreciated. CARDIAC - RRR with S1/S2. No murmur, rubs, or gallops appreciated. ABDOMEN - Abdominal contour normal without pulsations or visible masses. BS normoactive all four quadrants. No tenderness, palpable masses, hepatosplenomegaly, or ascites noted. EXTREMITIES - No clubbing or peripheral cyanosis. No pretibial edema present. +5/5 strength noted in UE/LE bilaterally. NEUROLOGIC - Cranial nerves II through XII grossly intact. PSYCH - A&Ox3 and cooperates fully with examiner. Pt is very pleasant and interacts well with examiner. Course Administered Medications Discontinued Medications Diphenhydramine HCl (Benadryl) 25 mg IV NOW STA Stop: 02/04/20 11:56 Last Admin: 02/04/20 12:21 Dose: 25 mg Documented by: [id number] Sodium Chloride (Nss 1000ml) 1,000 mls @ 999 mls/hr IV .Q1H1M YUE Stop: 02/04/20 13:00 Last Infusion: 02/04/20 13:26 Dose: 0 mls/hr Documented by: [id number] Admin: 02/04/20 12:21 Dose: 999 mls/hr Documented by: [id number] Sodium Chloride (Nss 1000ml) 1,000 mls @ 999 mls/hr IV .Q1H1M YUE Stop: 02/04/20 14:15 Last Infusion: 02/04/20 14:40 Dose: 0 mls/hr Documented by: [id number] Admin: 02/04/20 13:26 Dose: 999 mls/hr Documented by: [id number] Promethazine HCl (Phenergan) 12.5 mg in 50.5 mls @ 202 mls/hr IV NOW STA Stop: 02/04/20 14:00 Last Infusion: 02/04/20 14:16 Dose: 0 mls/hr Documented by: [id number] Admin: 02/04/20 14:01 Dose: 202 mls/hr Documented by: [id number] Metoclopramide HCl (Reglan) 10 mg IV NOW STA Stop: 02/04/20 11:56 Last Admin: 02/04/20 12:21 Dose: 10 mg Documented by: [id number] Ondansetron HCl (Zofran) 4 mg IV NOW STA Stop: 02/04/20 11:56 Last Admin: 02/04/20 12:21 Dose: 4 mg Documented by: [id number] Medical Decision Making Laboratory Data Result diagrams: 02/04/20 12:13 02/04/20 12:13 Lab Results 02/04/20 02/04/20 02/04/20 Range/Units 12:13 12:13 12:45 WBC 7.92 (4.8-10.8) K/uL RBC 4.18 L (4.7-6.1) M/uL Hgb 12.6 L (14.0-18.0) g/dL Hct 37.8 L (42-52) % MCV 90.4 (80-100) fL MCH 30.1 (25-34) pg MCHC 33.3 (32-36) g/dL RDW Std Deviation 43.5 (36.4-46.3) fL RDW Coeff of Carlos 13.2 (11.5-14.5) % Plt Count 227 (130-400) K/uL MPV 10.1 (7.4-10.4) fL Immature Gran % (Auto) 0.1 % Neut % (Auto) 74.2 % Lymph % (Auto) 17.4 % Garden % (Auto) 6.4 % Eos % (Auto) 1.6 % Baso % (Auto) 0.3 % Neut # (Auto) 5.87 (1.4-6.5) K/uL Lymph # (Auto) 1.38 (1.2-3.4) K/uL Garden # (Auto) 0.51 (0.11-0.59) K/uL Eos # (Auto) 0.13 (0-0.5) K/uL Baso # (Auto) 0.02 (0-0.2) K/uL Immature Gran # (Auto) 0.01 (0.00-0.02) K/uL Sodium 141 (136-145) mmol/L Potassium 3.5 (3.5-5.1) mmol/L Chloride 107 (98-107) mmol/L Carbon Dioxide 29 (21-32) mmol/L Anion Gap 6.0 (3-11) BUN 10 (7-18) mg/dl Creatinine 0.86 (0.6-1.4) mg/dl Est Cr Clr Drug Dosing 148.4 ml/min Est GFR ( Amer) 140.7 Est GFR (Non-Af Amer) 121.4 BUN/Creatinine Ratio 11.5 (10-20) Glucose 148 H (70-99) mg/dl POC Glucose (70-99) mg/dl Calcium 9.4 (8.5-10.1) mg/dl Total Bilirubin 0.4 (0.2-1) mg/dl AST 14 L (15-37) U/L ALT 19 (12-78) U/L Alkaline Phosphatase 63 (45-117) U/L Total Protein 7.4 (6.4-8.2) gm/dl Albumin 4.3 (3.4-5.0) gm/dl Globulin 3.1 (2.5-4.0) gm/dl Albumin/Globulin Ratio 1.4 (0.9-2) Lipase 55 L (73-393) U/L Urine Color Urine Appearance (Clear) Urine pH (4.5-7.5) Ur Specific Byron (1.000-1.030) Urine Protein (Negative) Urine Glucose (UA) (Negative) Urine Ketones (Negative) Urine Blood (Negative) Urine Nitrite (Negative) Urine Bilirubin (Negative) Urine Urobilinogen (Negative) Ur Leukocyte Esterase (Negative) Urine Opiates Screen Neg (Neg) Ur Methadone, Qual Neg (Neg) Urine Barbiturates Neg (Neg) Ur Phencyclidine (PCP) Neg (Neg) U Amphetamin/Meth Scrn Neg (Neg) MDMA (Ecstasy) Screen Neg (Neg) U Benzodiazepines Scrn Neg (Neg) Ur Cocaine Metabolite Neg (Neg) U Marijuana (THC) Screen Pos H (Neg) 02/04/20 02/04/20 02/04/20 Range/Units 12:45 18:41 18:45 WBC (4.8-10.8) K/uL RBC (4.7-6.1) M/uL Hgb (14.0-18.0) g/dL Hct (42-52) % MCV (80-100) fL MCH (25-34) pg MCHC (32-36) g/dL RDW Std Deviation (36.4-46.3) fL RDW Coeff of Carlos (11.5-14.5) % Plt Count (130-400) K/uL MPV (7.4-10.4) fL Immature Gran % (Auto) % Neut % (Auto) % Lymph % (Auto) % Garden % (Auto) % Eos % (Auto) % Baso % (Auto) % Neut # (Auto) (1.4-6.5) K/uL Lymph # (Auto) (1.2-3.4) K/uL Garden # (Auto) (0.11-0.59) K/uL Eos # (Auto) (0-0.5) K/uL Baso # (Auto) (0-0.2) K/uL Immature Gran # (Auto) (0.00-0.02) K/uL Sodium (136-145) mmol/L Potassium (3.5-5.1) mmol/L Chloride (98-107) mmol/L Carbon Dioxide (21-32) mmol/L Anion Gap (3-11) BUN (7-18) mg/dl Creatinine (0.6-1.4) mg/dl Est Cr Clr Drug Dosing ml/min Est GFR ( Amer) Est GFR (Non-Af Amer) BUN/Creatinine Ratio (10-20) Glucose (70-99) mg/dl POC Glucose 212 H 257 H (70-99) mg/dl Calcium (8.5-10.1) mg/dl Total Bilirubin (0.2-1) mg/dl AST (15-37) U/L ALT (12-78) U/L Alkaline Phosphatase (45-117) U/L Total Protein (6.4-8.2) gm/dl Albumin (3.4-5.0) gm/dl Globulin (2.5-4.0) gm/dl Albumin/Globulin Ratio (0.9-2) Lipase (73-393) U/L Urine Color Yellow Urine Appearance Clear (Clear) Urine pH >= 9.0 H (4.5-7.5) Ur Specific Byron 1.017 (1.000-1.030) Urine Protein Negative (Negative) Urine Glucose (UA) Negative (Negative) Urine Ketones 1+ H (Negative) Urine Blood Negative (Negative) Urine Nitrite Negative (Negative) Urine Bilirubin Negative (Negative) Urine Urobilinogen Negative (Negative) Ur Leukocyte Esterase Negative (Negative) Urine Opiates Screen (Neg) Ur Methadone, Qual (Neg) Urine Barbiturates (Neg) Ur Phencyclidine (PCP) (Neg) U Amphetamin/Meth Scrn (Neg) MDMA (Ecstasy) Screen (Neg) U Benzodiazepines Scrn (Neg) Ur Cocaine Metabolite (Neg) U Marijuana (THC) Screen (Neg) MDM Narrative Patient was seen and evaluated as above in room C04. Review was performed of nursing notes and vital signs. I did review pertinent previous visits and patient history. After obtaining a thorough history and physical examination the above work up was performed. He presents to us today with nausea and vomiting that began around 9 AM today. He is nontoxic on examination but does appear pale and does have an emesis bag with emesis at bedside. I personally took care of this patient earlier this month for similar presentation. I reviewed that visit. There is no leukocytosis. Mild anemia noted with hemoglobin of 12.6. Similar compared to previous. No emergent metabolic disturbance urinalysis negative for UTI however positive for THC. Patient denied any recent marijuana use. He he was given IV fluids, Zofran, Reglan and Benadryl. He was feeling mildly better and was given Phenergan. Although he did have a brief period where he was feeling better the nausea and vomiting returned. P.o. fluid trial attempted but I would note that the patient never had complete resolution of the nausea during his stay. Options of care were discussed with the patient. Inpatient management was felt reasonable. I was then called by the nurse and the patient developed increased nausea and heart rate increased therefore was given more fluids. He received a total of 3 L of fluid but was in the ED over 9 hours. While in the department, I personally reevaluated the patient several times. Please refer to further documentation regarding his stay. I do not suspect any emergent cause to the patient's presentation at this time and will note that there is no significant anion gap. Case was discussed with the attending physician. In the evaluation and treatment of this patient the following differential diagnoses were entertained: Obstruction, pneumonia, gastroparesis, electrolyte disturbance, foodborne illness, COVID-19, cholecystitis, among others. Impression & Plan Intractable vomiting with nausea Discharge Plan Visit Data Chief Complaint: Vomiting Stated Complaint: NAUSEA,VOMITING ED Provider: Nelson Garcias ED Midlevel Provider: Ja Mcgarry Discharge Problem: Intractable vomiting with nausea Patient Disposition: Admitted As Inpatient Condition: Good Forms Stand Alone Forms: My [facility] Prescriptions Prescriptions: No Action insulin lispro 100 unit/mL insulin pen 34 units SQ DAILY RF: 0 methadone 10 mg Tablet 39 mg PO QAM RF: 0 ondansetron 4 mg tablet,disintegrating 4 mg PO Q6 PRN (Reason: Nausea And Vomiting) RF: 0 Motilium 10 mg PO TID RF: 0 glucagon 3 mg/actuation spray,non-aerosol 3 mg INTNAS ONCE PRN (Reason: bsg emergency) RF: 0 potassium phosphate, monobasic 500 mg tablet,soluble 500 mg PO BID Qty: 6 RF: 0 Referrals Referrals: Oneil Tinajero MD [Primary Care Provider] -
[2020-02-04] MEDS ORDERED: SODIUM CHLORIDE 0.9% 1000ML 1,000 ML IV SCH ×2 (12:00→13:15)
[2020-02-04 12:23] LABS: Basophils # (auto) 0.02 K/uL (0-0.2); Basophils % (auto) 0.3 %; Eosinophils # (auto) 0.13 K/uL (0-0.5); Eosinophils % (auto) 1.6 %; Hematocrit (blood only) 37.8 % (42-52); Hemoglobin 12.6 g/dL (14.0-18.0); Immature Granulocytes # (auto) 0.01 K/uL (0.00-0.02); Immature Granulocytes % (auto) 0.1 %; Lymphocytes # (auto) 1.38 K/uL (1.2-3.4); Lymphocytes % (auto) 17.4 %; Mean Corpuscular Hemoglobin 30.1 pg (25-34); Mean Corpuscular Hgb Conc 33.3 g/dL (32-36); Mean Corpuscular Volume 90.4 fL (80-100); Mean Platelet Volume 10.1 fL (7.4-10.4); Monocytes # (auto) 0.51 K/uL (0.11-0.59); Monocytes % (auto) 6.4 %; Neutrophils # (auto) 5.87 K/uL (1.4-6.5); Neutrophils % (auto) 74.2 %; Platelet Count 227 K/uL (130-400); RDW Coefficient of Variation 13.2 % (11.5-14.5); RDW Standard Deviation 43.5 fL (36.4-46.3); Red Blood Count 4.18 M/uL (4.7-6.1); White Blood Count 7.92 K/uL (4.8-10.8)
[2020-02-04 12:45] LABS: Albumin Globulin Ratio 1.4 (0.9-2); Albumin Level 4.3 gm/dl (3.4-5.0); BUN Creatinine Ratio 11.5 (10-20); Bilirubin,Total 0.4 mg/dl (0.2-1); Calcium 9.4 mg/dl (8.5-10.1); Creatinine Clr Calc Pharmacy 148.4 ml/min; Est GFR (African American) 140.7; Est GFR (Non-African American) 121.4; Globulin 3.1 gm/dl (2.5-4.0); Potassium 3.5 mmol/L (3.5-5.1); Total Protein 7.4 gm/dl (6.4-8.2)
[2020-02-04 12:54] LABS: Appearance Urine Clear (Clear); Bilirubin Urine Negative (Negative); Blood Urine Negative (Negative); Color Urine Yellow; Glucose Urine UA Negative (Negative); Ketones Urine 1+ (Negative); Leukocyte Esterase Urine Negative (Negative); Nitrite Urine Negative (Negative); Protein Urine Negative (Negative); Specific Gravity Urine 1.017 (1.000-1.030); Urobilinogen Urine Negative (Negative); pH Urine >= 9.0 (4.5-7.5)
[2020-02-04 13:17] LABS: Amphetamines+Metham, Urine Neg (Neg); Barbiturates, Urine Neg (Neg); Benzodiazepine, Urine Neg (Neg); Cocaine, Urine Neg (Neg); MDMA (Ecstacy), Urine Neg (Neg); Methadone, Urine Neg (Neg); Opiate, Urine Neg (Neg); Phencyclidine, Urine Neg (Neg)
[2020-02-04] MEDS ORDERED: PROMETHAZINE 12.5 MG/50.5 ML BAG IV STA (13:46)
--- NOTE | 2020-02-04 18:11 | History & Physical Report ---
Date of Service February 04, 2020 Assessment & Plan (1) Intractable vomiting with nausea: hx of same with gastroparesis zofran, phenergan, reglan IVF Electrolytes WNL Lipase WNL UA neg Feeling 50% improved s/p ED interventions, but unable to tolerate PO still (2) Gastroparesis: Uses omeprazole for reflux, but could not take that today due to n/v Protonix IV for now Pt follows with Gisselle Munguia at [facility] for his gastroparesis. He has had gastric emptying studies there. Last appt with her was last month, prior to his admission and d/c on 01/27. He has not had any f/u with her since that time. (3) History of opioid abuse: methadone Last dose change was over a month ago, so unlikely the issue (4) Type I diabetes mellitus: Insulin pump as at home A1c pending (5) DVT prophylaxis: SCDs, ambulation (6) Marijuana use: Pt has a medical marijuana card for nausea and back pain. He states that his last use was about 2 weeks ago. He states that he usually smokes twice a week. He did not try this today because he was afraid that it would make his n/v worse. Last use was 2 weeks ago, which makes cyclic vomiting syndrome less likely History of Present Illness Primary Care Provider: Oneil Tinajero MD 25 y/o M c/o intractable n/v. Pt states that he was in his usual state of health yesterday. He ate without issue. Denies eating any unusual foods. He states he woke up this AM with intractable n/v. He threw up "at least 10 times" today, including since arrival to the ED. Pt states he was unable to eat anything or to take his daily meds. Pt has a medical marijuana card for nausea and back pain. He states that his last use was about 2 weeks ago. He states that he usually smokes twice a week. He did not try this today because he was afraid that it would make his n/v w orse. Pt takes methadone. He has been on this for some time. His last dose change was over a month ago. Pt follows with Gisselle Munguia at [facility] for his gastroparesis. He has had gastric emptying studies there. Last appt with her was last month, prior to his admission and d/c on 01/27. He has not had any f/u with her since that time. Pt uses an insulin pump at home and prefers to use this during his admissions. Pt denies fever, SOB, chest pain, abd pain, c/d, LE pain or swelling. Pt states his nausea is about 50% improved s/p ED interventions. He states that he rotates zofran, phenergan, reglan generally when admitted. Allergies Allergy/AdvReac Type Severity Reaction Status Date / Time Cephalosporins Allergy Intermediate Hives Verified 02/04/20 12:36 Sulfa (Sulfonamide Allergy Intermediate Hives Verified 02/04/20 12:36 Antibiotics) azithromycin [From Zithromax] AdvReac Intermediate Hives Verified 02/04/20 12:36 Home Medications Home Medications Medication Instructions Recorded Confirmed Type Motilium 10 mg PO TID 12/10/19 02/04/20 History methadone 39 mg PO QAM 12/10/19 02/04/20 History ondansetron 4 mg PO Q6 PRN 12/10/19 02/04/20 History insulin lispro 100 unit/mL 34 units SQ DAILY ml 01/15/20 02/04/20 History subcutaneous pen glucagon 3 mg INTNAS ONCE PRN 01/26/20 02/04/20 History potassium phosphate, monobasic 500 mg PO BID #6 tab 01/28/20 02/04/20 Rx Past Med/Surg History Medical History Anemia (Resolved) Diabetes Gastroparesis Hepatitis History of opioid abuse Pneumomediastinum Soft tissue abscess Surgical History No pertinent past surgical history Family History Other Cancer Diabetes Heart disease Hypertension Social History (Updated 02/04/20 @ 19:23 by Sarah Lara DO) Smoking Status: Never smoker Second Hand Exposure: No; Hx Alcohol Use: No Hx Substance Use: Yes Prescribed Medications: Marijuana Last Used Substance: Unknown Last Used Substance Other:: Last use of MJ was 2 weeks ago Substance Use Type Other:: history of iv drug use Preferred Language: Sinhala Communication Ability: Effective [employer] Agent Required: No Beliefs That Will Affect Care: None marital status: Single Current Living Situation: Parent Feels Safe at Home: Yes Review of Systems Review of Systems: Pertinent positives and negatives reviewed in HPI--all others negative Physical Exam Constitutional: WD/WN, vitals as above + ill appearing Eyes: normal visual khanna by confrontation and + anicteric sclerae Neck: normal visual inspection and trachea midline Respiratory: normal respiratory effort, lungs clear to auscultation Cardiovascular: Rate/Rhythm: regular rate and regular rhythm Gastrointestinal (Abdomen): Inspection/Auscultation: abdomen not distended Percussion/Palpation: abdomen soft; abdomen nontender Musculoskeletal: Head/Neck/Chest: normocephalic and head atraumatic negative for edema, peripheral pulses intact Skin: no rashes, warm and dry Neurologic: awake; not confused Speech / Cognition: normal speech Psychiatric: Orientation: oriented x 3 Affect: + irritable affect Results & Data Results & Data ([facility]) Vital Signs (Past 12 Hours) Vital Signs Temp Pulse Pulse Resp BP BP Pulse Ox 02/04/20 16:00 60 20 141/82 H 96 02/04/20 14:02 65 18 129/75 98 02/04/20 13:02 63 20 133/84 97 02/04/20 11:35 37.3 C 80 18 135/86 99 PG Care Time/CCT Total # of Minutes Spent Total Time Spent with Patient: Total time spent is greater than 50% in coordination of care (as documented) at patient's floor/unit and/or counseling patient: Coding Level of Care Code 69171 OBS Care - Level 3 Diagnoses Intractable vomiting with nausea R11.2 Gastroparesis K31.84 History of opioid abuse Z87.898 Type I diabetes mellitus E10.9 DVT prophylaxis Z29.9 Marijuana use F12.90
[2020-02-04] MEDS ORDERED: METOCLOPRAMIDE HCL 5 MG TABLET PO PRN (20:57)
[2020-02-04] MEDS ORDERED: ACETAMINOPHEN 325 MG TAB PO PRN (20:57)
[2020-02-04] MEDS ORDERED: MAGNESIUM HYDROXIDE SUSP 30 ML UDC PO PRN (20:57)
[2020-02-04] MEDS ORDERED: ONDANSETRON 4 MG OD TAB PO PRN (20:57)
[2020-02-04] MEDS ORDERED: ONDANSETRON INJ 2 MG/ML 2 ML VIAL IV PRN ×2 (20:57)
[2020-02-04] MEDS ORDERED: PROMETHAZINE HCL 25 MG in SODIUM CHLORIDE 0.9% 50 ML IV PRN (20:57)
[2020-02-04] MEDS ORDERED: GLUCAGON 3 MG INTNAS PRN (20:57)
[2020-02-04] MEDS: SODIUM CHLORIDE 0.9% 1000ML 1,000 ML IV SCH ×2 (21:11→21:13)
[2020-02-04] MEDS ORDERED: GLUCOSE 40% GEL 15 GM TUBE PO PRN (21:15)
[2020-02-04] MEDS ORDERED: GLUCAGON FOR INJ 1 MG VIAL IM PRN (21:15)
[2020-02-04] MEDS ORDERED: GLUCOSE 10 TABS/TUBE PO PRN (21:15)
[2020-02-04] MEDS ORDERED: DEXTROSE 50% 50 ML SYRINGE IV PRN (21:15)
[2020-02-04] MEDS ORDERED: PANTOprazole 40 MG in SYRINGE 0 ML IV ONE (21:15)
[2020-02-04] MEDS ORDERED: CARBOHYDRATES FOR HYPOGLYCEMIA PO PRN (21:15)
[2020-02-04] MEDS: SODIUM CHLOR 0.45% + 20MEQ KCL 20 MEQ/1,000 ML BAG IV SCH (21:57)
[2020-02-04] MEDS: POT PHOSPHATE MONOBASIC W/ SOD TAB PO SCH (22:49)
[2020-02-05 06:41] LABS: Calcium 8.6 mg/dl (8.5-10.1); Creatinine Clr Calc Pharmacy 155.7 ml/min; Est GFR (African American) 147.2; Magnesium 1.7 mg/dl (1.8-2.4); Potassium 3.6 mmol/L (3.5-5.1)
[2020-02-05 06:42] LABS: Phosphorus 3.4 mg/dl (2.5-4.9)
[2020-02-05 07:12] LABS: Estimated Average Glucose 157 mg/dl; Hemoglobin A1C 7.1 % (4.5-5.6)
[2020-02-05 07:30] VITALS: TEMP 98.4
[2020-02-05] MEDS: SODIUM CHLOR 0.45% + 20MEQ KCL 20 MEQ/1,000 ML BAG IV SCH ×2 (07:58→18:12)
[2020-02-05] MEDS ORDERED: METHADONE ORAL SOLN 2 MG/ML PO SCH (09:00)
[2020-02-05] MEDS: MOTILIUM 10 MG PO SCH ×2 (09:02→14:50)
[2020-02-05] MEDS: POT PHOSPHATE MONOBASIC W/ SOD TAB PO SCH (09:03)
[2020-02-05] MEDS ORDERED: INSULIN HUMAN LISPRO (humaLOG) 100 UNITS/ML VIAL SC PRN (10:15)
[2020-02-05] MEDS ORDERED: PANTOprazole 40 MG in SYRINGE 0 ML IV SCH (11:00)
[2020-02-05 15:35] VITALS: BP 99/63; PULSE 83; O2SAT 96
[2020-02-06 00:55] LABS: Marijuana Quant, GCMS Urine >5000 ng/mL (<5)
[2020-02-06] MEDS ORDERED: METHADONE ORAL SOLN 2 MG/ML PO SCH (09:00)
--- NOTE | 2020-02-12 22:21 | Discharge Summary ---
Date of Service February 05, 2020 Admission HPI Per Admitting Provider 25 y/o M c/o intractable n/v. Pt states that he was in his usual state of health yesterday. He ate without issue. Denies eating any unusual foods. He states he woke up this AM with intractable n/v. He threw up "at least 10 times" today, including since arrival to the ED. Pt states he was unable to eat anything or to take his daily meds. Pt has a medical marijuana card for nausea and back pain. He states that his last use was about 2 weeks ago. He states that he usually smokes twice a week. He did not try this today because he was afraid that it would make his n/v worse. Pt takes methadone. He has been on this for some time. His last dose change was over a month ago. Pt follows with Gisselle Munguia at [facility] for his gastroparesis. He has had gastric emptying studies there. Last appt with her was last month, prior to his admission and d/c on 01/27. He has not had any f/u with her since that time. Pt uses an insulin pump at home and prefers to use this during his admissions. Pt denies fever, SOB, chest pain, abd pain, c/d, LE pain or swelling. Pt states his nausea is about 50% improved s/p ED interventions. He states that he rotates zofran, phenergan, reglan generally when admitted. Principal Diagnosis intractable vomiting Discharge Exam Constitutional: WD/WN, vitals as above + ill appearing Eyes: normal visual khanna by confrontation and + anicteric sclerae Neck: normal visual inspection and trachea midline Respiratory: normal respiratory effort, lungs clear to auscultation Cardiovascular: Rate/Rhythm: regular rate and regular rhythm Gastrointestinal (Abdomen): Inspection/Auscultation: abdomen not distended Percussion/Palpation: abdomen soft; abdomen nontender Musculoskeletal: Head/Neck/Chest: normocephalic and head atraumatic negative for edema, peripheral pulses intact Skin: no rashes, warm and dry Neurologic: awake; not confused Speech / Cognition: normal speech Psychiatric: Orientation: oriented x 3 Affect: + irritable affect Discharge Data Allergies Allergy/AdvReac Type Severity Reaction Status Date / Time Cephalosporins Allergy Intermediate Hives Verified 02/04/20 12:36 Sulfa (Sulfonamide Allergy Intermediate Hives Verified 02/04/20 12:36 Antibiotics) azithromycin [From Zithromax] AdvReac Intermediate Hives Verified 02/04/20 12:36 Consultations 02/04/20 15:51 ED Decision to Admit Stat Hospital Course (1) Intractable vomiting with nausea: hx of same with gastroparesis zofran, phenergan, reglan IVF Electrolytes WNL Lipase WNL UA neg On day of discharge, patient improved, tolerated diet. 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 (2) Gastroparesis: Uses omeprazole for reflux, but could not take that today due to n/v Protonix IV for now Pt follows with Gisselle Munguia at [facility] for his gastroparesis. He has had gastric emptying studies there. Last appt with her was last month, prior to his admission and d/c on 01/27. He has not had any f/u with her since that time. (3) History of opioid abuse: methadone Last dose change was over a month ago, so unlikely the issue (4) Type I diabetes mellitus: Insulin pump as at home A1c pending (5) DVT prophylaxis: SCDs, ambulation (6) Marijuana use: Pt has a medical marijuana card for nausea and back pain. He states that his last use was about 2 weeks ago. He states that he usually smokes twice a week. He did not try this today because he was afraid that it would make his n/v worse. Last use was 2 weeks ago, which makes cyclic vomiting syndrome less likely Total Time Total Time Spent Total Time Spent (In Minutes): 32 Total Time Includes: Examination of the Patient, Discharge Planning and Medication Reconciliation Discharge Plan Discharge Items Patient Disposition: Home - Self-Care Reason For Visit: INTRACTABLE N/V Discharge Diagnosis: Intractable N/V Condition on Discharge: Good Activity: Resume your previous activity Non-emergency contact: Primary Care Provider Call non-emergency contact if: you have any medication questions Follow-up/Referrals: Oneil Tinajero MD [Primary Care Provider] - 02/11/20 8:30 am Gisselle Munguia [Outside Practitioners] - 03/24/20 4:00 pm (You have been scheduled for an in clinic appt with [facility] Gastro Dr. Vel Munguia. If you are unable to keep this appt, please phone [phone]. You also have a appt scheduled for Vel Munguia in June 2020 scheduled prior to your hospitalizat ion.) Diet: Carb Count or DM1 Addtl Attending Provider Instructions: You have been hospitalized for an acute medical problem. During your stay at [facility], we have made an effort to correct the problem that brought you to the hospital while keeping you as comfortable as possible. Medications were used to bring your condition under control and your discharge instructions will include directions for any medications you should take after leaving the hospital. Please make sure you see your Primary Care Provider as part of your follow up plan. Pending Studies at Discharge: No Stand-Alone Forms: [facility], Smoking Cessation Medications and DC Order Prescriptions: Continued insulin lispro 100 unit/mL insulin pen 34 units SQ DAILY RF: 0 methadone 10 mg Tablet 39 mg PO QAM RF: 0 ondansetron 4 mg tablet,disintegrating 4 mg PO Q6 PRN (Reason: Nausea And Vomiting) RF: 0 Motilium 10 mg PO TID RF: 0 glucagon 3 mg/actuation spray,non-aerosol 3 mg INTNAS ONCE PRN (Reason: bsg emergency) RF: 0 potassium phosphate, monobasic 500 mg tablet,soluble 500 mg PO BID Qty: 6 RF: 0 Discharge Orders: Discharge Order (Routine); Ordered 02/05/20 Ordered By: Darrick Mccarty/Other Patient Handouts: Self-Care for Vomiting and Diarrhea, ED Diet for Vomiting or Diarrhea Adult Admission Data Admit Date/Time: 02/04/20 19:24 Attending Provider: Darrick Becker Admit Provider: Sarah Lara Primary Care Provider: Oneil Tinajero Other Interventions: Discharge Summary Assessment (RN) Last Done: 02/05/20 16:37 Coding Level of Care Code D/C Day Management >30 mins Diagnoses Intractable vomiting with nausea R11.2 Gastroparesis K31.84 History of opioid abuse Z87.898 Type I diabetes mellitus E10.9 DVT prophylaxis Z29.9 Marijuana use F12.90 Time Spent (min) 32
== END 2020-02-05 19:30 | disposition home or self-care (01) ==
LOC: ED 11:02 → 3W 11:02 → SUATTDRO 19:24 → 3W 20:32

== ENCOUNTER 2020-03-19 12:01 | Observation (INO) ==
[2020-03-19] MEDS ORDERED: PROMETHAZINE 12.5 MG/50.5 ML BAG IV STA (12:39)
[2020-03-19] MEDS ORDERED: METOCLOPRAMIDE HCL INJ 5 MG/ML 2 ML VIAL IV STA (12:39)
[2020-03-19] MEDS ORDERED: DiphenhydrAMINE HCL 50 MG/ML VIAL IV STA ×2 (12:39→19:25)
[2020-03-19] MEDS ORDERED: ONDANSETRON INJ 2 MG/ML 2 ML VIAL IV STA (12:39)
[2020-03-19] MEDS ORDERED: SODIUM CHLORIDE 0.9% 1000ML 1,000 ML IV SCH (12:45)
--- NOTE | 2020-03-19 12:45 | Emergency Department Note ---
Impression & Plan Vomiting, Gastroparesis, Acute dehydration ED Provider Note NAME: ANISH SINGH AGE: 25 SEX: M : 1995 ARRIVES VIA: Walk-In INFORMANT: [Patient] ED PROVIDER(S): [Scott Herrmann MD] CHIEF COMPLAINT: Vomiting HISTORY OF PRESENT ILLNESS: The patient is a 25-year-old male presents the ER with about 3 to 4 hours of persistent nausea and vomiting. He had one bout of diarrhea, the diarrhea has ended. He is persistently vomiting. Patient tried some Compazine at home for the vomiting but had no relief. He has no abdominal pain. He has not had fever, chills, cough or congestion. No shortness of breath. No known coronavirus exposures. Patient has gastroparesis and feels that his gastroparesis is flaring. He states his blood sugars have been fine this m orning REVIEW OF SYSTEMS: See HPI for pertinent positives and negatives. A total of ten systems were reviewed and were otherwise negative. PMHx/PSHx: See Below SOCIAL HISTORY: See Below. PHYSICAL EXAM: GENERAL: Patient is in mild distress from vomiting, vomit bag at the bedside. HEENT: No acute trauma, normocephalic atraumatic, mucous membranes moist, no nasal congestion, no scleral icterus. NECK: No stridor, no adenopathy, no meningismus, trachea is midline. LUNGS: Clear to auscultation bilaterally, no wheeze, no rhonchi, breath sounds equal. HEART: Without murmurs gallops or rubs, regular rate and rhythm. ABDOMEN: Soft, nontender, bowel sounds positive, no hernias, no peritonitis. EXTREMITIES: No cyanosis or edema, full range of motion of all the joints without pain or difficulty, no signs for acute trauma. NEUROLOGIC: Oriented x 3, no acute motor or sensory deficits, no focal weakness. SKIN: No rash, no jaundice, no diaphoresis. DIFFERENTIAL DIAGNOSIS: Gastroparesis, bowel obstruction, ileus, foodborne illness, viral illness, dehydration, DKA, UTI, electrolyte imbalance. EMERGENCY DEPARTMENT COURSE/PROCEDURES: ECG: Indication was vomiting. The ECG shows a normal sinus rhythm with a rate of 63. There was no ST elevation, no PVCs. The QTc was 452. Continuous Cardiac Monitoring: An order was placed for continuous cardiac monitoring. The monitor shows a rate of 75 with normal sinus rhythm. MEDICAL DECISION MAKING: There is no leukocytosis or worrisome anemia. There is a normal platelet count. No significant electrolyte abnormality or kidney failure. No liver enzyme elevation. Urinalysis shows evidence for dehydration, no infection. Abdominal series does not show pneumonia, free air or bowel obstruction. On exam, the patient appeared dehydrated. There was no abdominal discomfort. He was not febrile. Patient was given IV Benadryl, IV Reglan, IV Zofran, IV Phenergan. He received IV saline and IV lactated Ringer's. Despite the above meds, the patient is still nauseated and is still vomiting. He does not feel safe with discharge home. Given his persistent symptoms, hospitalization was felt warranted. He appears to be having a flare of his gastroparesis. I spoke to the patient, I talked with case management. The on-call hospitalist has been consulted. Past Med/Surg History Medical History Anemia Diabetes Hepatitis History of opioid abuse Pneumomediastinum Soft tissue abscess Surgical History No pertinent past surgical history Family History Other Cancer Diabetes Heart disease Hypertension Social History Smoking Status: Never smoker Second Hand Exposure: No; Hx Alcohol Use: No Hx Substance Use: Yes Prescribed Medications: Marijuana Last Used Substance: Unknown Last Used Substance Other:: Last use of MJ was 2 weeks ago Substance Use Type Other:: history of iv drug use Preferred Language: Luxembourgish Communication Ability: Effective Bellman Required: No Beliefs That Will Affect Care: None marital status: Single Current Living Situation: Parent Feels Safe at Home: Yes Assistive Devices: None Allergies Allergies Allergy/AdvReac Type Severity Reaction Status Date / Time Cephalosporins Allergy Intermediate Hives Verified 03/19/20 12:57 Sulfa (Sulfonamide Allergy Intermediate Hives Verified 03/19/20 12:57 Antibiotics) azithromycin [From Zithromax] AdvReac Intermediate Hives Verified 03/19/20 12:57 Home Meds Home Medications Medication Instructions Recorded Confirmed Motilium 10 mg PO TID 12/10/19 03/19/20 methadone 39 mg PO QAM 12/10/19 03/19/20 ondansetron 4 mg PO Q6 PRN 12/10/19 03/19/20 insulin lispro 100 unit/mL 34 units SQ DAILY ml 01/15/20 03/19/20 subcutaneous pen glucagon 3 mg INTNAS ONCE PRN 01/26/20 03/19/20 Previous Rx's Medication Instructions Recorded potassium phosphate, monobasic 500 mg PO BID #6 tab 01/28/20 Results & Data (ED) Vital Signs Vital Signs - 24 hr 03/19/20 12:15 03/19/20 12:39 03/19/20 13:24 Temperature 36.8 C Temperature Source Oral Pulse Rate 83 76 Respiratory Rate 18 17 Respiratory Effort / Characteristics Non-Labored Spontaneous Respiratory Depth Normal Respiratory Pattern Regular Blood Pressure 117/76 128/74 Blood Pressure Mean 89 77 Pulse Oximetry 98 100 Oxygen Delivery Method Room Air Room Air Sepsis Recent Fever Within 48 Hours No Sepsis New/Unexplained Change in Mental Status No Sepsis Action Taken by Nursing No Action Required Home Medications Current Medication List: was personally reviewed by me Laboratory Data Attestation: I reviewed the patient's lab results. Result diagrams: 03/19/20 12:25 03/19/20 12:25 Lab Results 03/19/20 03/19/20 03/19/20 Range/Units 12:15 12:25 12:25 WBC 9.34 (4.8-10.8) K/uL RBC 4.71 (4.7-6.1) M/uL Hgb 13.7 L (14.0-18.0) g/dL Hct 40.9 L (42-52) % MCV 86.8 (80-100) fL MCH 29.1 (25-34) pg MCHC 33.5 (32-36) g/dL RDW Std Deviation 39.9 (36.4-46.3) fL RDW Coeff of Carlos 12.4 (11.5-14.5) % Plt Count 214 (130-400) K/uL MPV 10.8 H (7.4-10.4) fL Immature Gran % (Auto) 0.1 % Neut % (Auto) 79.1 % Lymph % (Auto) 14.3 % Garvin % (Auto) 5.0 % Eos % (Auto) 1.2 % Baso % (Auto) 0.3 % Neut # (Auto) 7.38 H (1.4-6.5) K/uL Lymph # (Auto) 1.34 (1.2-3.4) K/uL Garvin # (Auto) 0.47 (0.11-0.59) K/uL Eos # (Auto) 0.11 (0-0.5) K/uL Baso # (Auto) 0.03 (0-0.2) K/uL Immature Gran # (Auto) 0.01 (0.00-0.02) K/uL Sodium 141 (136-145) mmol/L Potassium 3.7 (3.5-5.1) mmol/L Chloride 106 (98-107) mmol/L Carbon Dioxide 27 (21-32) mmol/L Anion Gap 8.0 (3-11) BUN 15 (7-18) mg/dl Creatinine 1.04 (0.6-1.4) mg/dl Est Cr Clr Drug Dosing 112.3 ml/min Est GFR ( Amer) 115.9 Est GFR (Non-Af Amer) 100.0 BUN/Creatinine Ratio 14.2 (10-20) Glucose 168 H (70-99) mg/dl POC Glucose 143 H (70-99) mg/dl Calcium 9.4 (8.5-10.1) mg/dl Magnesium 1.8 (1.8-2.4) mg/dl Total Bilirubin 0.7 (0.2-1) mg/dl AST 15 (15-37) U/L ALT 35 (12-78) U/L Alkaline Phosphatase 81 (45-117) U/L Total Protein 8.3 H (6.4-8.2) gm/dl Albumin 4.7 (3.4-5.0) gm/dl Globulin 3.6 (2.5-4.0) gm/dl Albumin/Globulin Ratio 1.3 (0.9-2) Urine Color Urine Appearance (Clear) Urine pH (4.5-7.5) Ur Specific Bolt (1.000-1.030) Urine Protein (Negative) Urine Glucose (UA) (Negative) Urine Ketones (Negative) Urine Blood (Negative) Urine Nitrite (Negative) Urine Bilirubin (Negative) Urine Urobilinogen (Negative) Ur Leukocyte Esterase (Negative) Urine WBC (Auto) (0-5) /hpf Urine RBC (Auto) (0-4) /hpf U Hyaline Cast (Auto) (0-5) /lpf U Epithel Cells (Auto) (0-5) /lpf Urine Bacteria (Auto) (Negative) Ur Renal Epithelial Cell 03/19/20 Range/Units 13:30 WBC (4.8-10.8) K/uL RBC (4.7-6.1) M/uL Hgb (14.0-18.0) g/dL Hct (42-52) % MCV (80-100) fL MCH (25-34) pg MCHC (32-36) g/dL RDW Std Deviation (36.4-46.3) fL RDW Coeff of Carlos (11.5-14.5) % Plt Count (130-400) K/uL MPV (7.4-10.4) fL Immature Gran % (Auto) % Neut % (Auto) % Lymph % (Auto) % Garvin % (Auto) % Eos % (Auto) % Baso % (Auto) % Neut # (Auto) (1.4-6.5) K/uL Lymph # (Auto) (1.2-3.4) K/uL Garvin # (Auto) (0.11-0.59) K/uL Eos # (Auto) (0-0.5) K/uL Baso # (Auto) (0-0.2) K/uL Immature Gran # (Auto) (0.00-0.02) K/uL Sodium (136-145) mmol/L Potassium (3.5-5.1) mmol/L Chloride (98-107) mmol/L Carbon Dioxide (21-32) mmol/L Anion Gap (3-11) BUN (7-18) mg/dl Creatinine (0.6-1.4) mg/dl Est Cr Clr Drug Dosing ml/min Est GFR ( Amer) Est GFR (Non-Af Amer) BUN/Creatinine Ratio (10-20) Glucose (70-99) mg/dl POC Glucose (70-99) mg/dl Calcium (8.5-10.1) mg/dl Magnesium (1.8-2.4) mg/dl Total Bilirubin (0.2-1) mg/dl AST (15-37) U/L ALT (12-78) U/L Alkaline Phosphatase (45-117) U/L Total Protein (6.4-8.2) gm/dl Albumin (3.4-5.0) gm/dl Globulin (2.5-4.0) gm/dl Albumin/Globulin Ratio (0.9-2) Urine Color Yellow Urine Appearance Clear (Clear) Urine pH >= 9.0 H (4.5-7.5) Ur Specific Bolt 1.026 (1.000-1.030) Urine Protein Negative (Negative) Urine Glucose (UA) Negative (Negative) Urine Ketones 3+ H (Negative) Urine Blood Negative (Negative) Urine Nitrite Negative (Negative) Urine Bilirubin Negative (Negative) Urine Urobilinogen Negative (Negative) Ur Leukocyte Esterase Negative (Negative) Urine WBC (Auto) 1-5 (0-5) /hpf Urine RBC (Auto) 0-4 (0-4) /hpf U Hyaline Cast (Auto) 10-30 H (0-5) /lpf U Epithel Cells (Auto) >30 H (0-5) /lpf Urine Bacteria (Auto) Negative (Negative) Ur Renal Epithelial Cell Not Reportable Administered Medications Discontinued Medications Diphenhydramine HCl (Diphenhydramine Hcl 50 Mg/Ml Vial) 25 mg IV NOW STA Stop: 03/19/20 12:40 Last Admin: 03/19/20 12:59 Dose: 25 mg Documented by: [id number] Sodium Chloride (Nss 1000ml) 1,000 mls @ 999 mls/hr IV .Q1H1M YUE Stop: 03/19/20 13:45 Last Infusion: 03/19/20 14:34 Dose: 0 mls/hr Documented by: [id number] Admin: 03/19/20 12:59 Dose: 999 mls/hr Documented by: [id number] Promethazine HCl (Phenergan) 12.5 mg in 50.5 mls @ 202 mls/hr IV NOW STA Stop: 03/19/20 12:53 Last Infusion: 03/19/20 13:26 Dose: 0 mls/hr Documented by: [id number] Admin: 03/19/20 12:59 Dose: 202 mls/hr Documented by: [id number] Lactated Ringer's (Lr) 1,000 mls @ 999 mls/hr IV .Q1H1M STA Stop: 03/19/20 15:04 Last Admin: 03/19/20 14:34 Dose: 999 mls/hr Documented by: [id number] Metoclopramide HCl (Metoclopramide Hcl Inj 5 Mg/Ml 2 Ml Vial) 10 mg IV NOW STA Stop: 03/19/20 12:40 Last Admin: 03/19/20 12:59 Dose: 10 mg Documented by: [id number] Ondansetron HCl (Ondansetron Inj 2 Mg/Ml 2 Ml Vial) 4 mg IV NOW STA Stop: 03/19/20 12:40 Last Admin: 03/19/20 12:59 Dose: 4 mg Documented by: [id number] Imaging Data Radiologist's Impression: XR abdomen 2V w PA chest HISTORY: 25 years-old Male nv acute nausea and vomiting COMPARISON: Chest radiograph 01/26/2020, CT abdomen and pelvis 05/10/2018. TECHNIQUE: PA view of the chest with erect and supine views of the abdomen FINDINGS: Cardiomediastinal and hilar silhouettes are within normal limits. No pneumothorax, pleural effusion, airspace consolidation or overt pulmonary edema. Bones of the chest appear grossly intact. No pneumatosis or pneumoperitoneum. Bowel gas pattern is nonobstructive. There are a few small bowel air-fluid levels noted within the left midabdomen involving nondilated prominent loops of small bowel. No definite urolith. Left pelvic basin calcifications measure up to 7 mm suggestive of phleboliths. No acute fracture. IMPRESSION: 1. No acute processes of the chest. 2. Nonobstructive bowel gas pattern without pneumoperitoneum. 3. A few small bowel air-fluid levels of the left midabdomen may reflect a mild enteritis. Blood Pressure Blood Pressure Findings: Elevated blood pressure Blood Pressure Disposition: further management by hospitalist Discharge Plan Visit Data Chief Complaint: Vomiting Stated Complaint: NAUSEA, VOMITING ED Provider: Scott Herrmann Discharge Problem: Vomiting, Gastroparesis, Acute dehydration Patient Disposition: Admitted As Inpatient Condition: Good Forms Stand Alone Forms: [facility], [facility] Emergency Department, Important Visit Information Prescriptions Prescriptions: No Action insulin lispro 100 unit/mL insulin pen 34 units SQ DAILY RF: 0 methadone 10 mg Tablet 39 mg PO QAM RF: 0 ondansetron 4 mg tablet,disintegrating 4 mg PO Q6 PRN (Reason: Nausea And Vomiting) RF: 0 Motilium 10 mg PO TID RF: 0 glucagon 3 mg/actuation spray,non-aerosol 3 mg INTNAS ONCE PRN (Reason: bsg emergency) RF: 0 potassium phosphate, monobasic 500 mg tablet,soluble 500 mg PO BID Qty: 6 RF: 0 Referrals Referrals: Oneil Tinajero MD [Primary Care Provider] - Discharge Problem: Vomiting Qualifiers: Vomiting type: unspecified Vomiting Intractability: intractable Nausea presence: with nausea Qualified Code(s): R11.2 - Nausea with vomiting, unspecified
[2020-03-19 12:51] LABS: Basophils # (auto) 0.03 K/uL (0-0.2); Basophils % (auto) 0.3 %; Eosinophils # (auto) 0.11 K/uL (0-0.5); Eosinophils % (auto) 1.2 %; Hematocrit (blood only) 40.9 % (42-52); Hemoglobin 13.7 g/dL (14.0-18.0); Immature Granulocytes # (auto) 0.01 K/uL (0.00-0.02); Immature Granulocytes % (auto) 0.1 %; Lymphocytes # (auto) 1.34 K/uL (1.2-3.4); Lymphocytes % (auto) 14.3 %; Mean Corpuscular Hemoglobin 29.1 pg (25-34); Mean Corpuscular Hgb Conc 33.5 g/dL (32-36); Mean Corpuscular Volume 86.8 fL (80-100); Mean Platelet Volume 10.8 fL (7.4-10.4); Monocytes # (auto) 0.47 K/uL (0.11-0.59); Neutrophils # (auto) 7.38 K/uL (1.4-6.5); Neutrophils % (auto) 79.1 %; Platelet Count 214 K/uL (130-400); RDW Coefficient of Variation 12.4 % (11.5-14.5); RDW Standard Deviation 39.9 fL (36.4-46.3); Red Blood Count 4.71 M/uL (4.7-6.1); White Blood Count 9.34 K/uL (4.8-10.8)
[2020-03-19 13:15] LABS: Albumin Level 4.7 gm/dl (3.4-5.0); BUN Creatinine Ratio 14.2 (10-20); Calcium 9.4 mg/dl (8.5-10.1); Creatinine Clr Calc Pharmacy 112.3 ml/min; Est GFR (African American) 115.9; Magnesium 1.8 mg/dl (1.8-2.4); Potassium 3.7 mmol/L (3.5-5.1)
[2020-03-19 13:18] LABS: Albumin Globulin Ratio 1.3 (0.9-2); Bilirubin,Total 0.7 mg/dl (0.2-1); Globulin 3.6 gm/dl (2.5-4.0); Total Protein 8.3 gm/dl (6.4-8.2)
--- NOTE | 2020-03-19 13:30 | XRay Report ---
XR abdomen 2V w PA chest HISTORY: 25 years-old Male nv acute nausea and vomiting COMPARISON: Chest radiograph 01/26/2020, CT abdomen and pelvis 05/10/2018. TECHNIQUE: PA view of the chest with erect and supine views of the abdomen FINDINGS: Cardiomediastinal and hilar silhouettes are within normal limits. No pneumothorax, pleural effusion, airspace consolidation or overt pulmonary edema. Bones of the chest appear grossly intact. No pneumatosis or pneumoperitoneum. Bowel gas pattern is nonobstructive. There are a few small bowel air-fluid levels noted within the left midabdomen involving nondilated prominent loops of small bowel . No definite urolith. Left pelvic basin calcifications measure up to 7 mm suggestive of phleboliths. No acute fracture. IMPRESSION: 1. No acute processes of the chest. 2. Nonobstructive bowel gas pattern without pneumoperitoneum. 3. A few small bowel air-fluid levels of the left midabdomen may reflect a mild enteritis. ACT 112: Negative or not required by law. The above report was generated using voice recognition software. It may contain grammatical, syntax o r spelling errors. Electronically signed by: Zack Sorto M.D. 03/19/2020 1:28 PM
[2020-03-19 13:48] LABS: Appearance Urine Clear (Clear); Bacteria Urine Automated Negative (Negative); Bilirubin Urine Negative (Negative); Blood Urine Negative (Negative); Color Urine Yellow; Epithelial Cell Urine Auto >30 /lpf (0-5); Glucose Urine UA Negative (Negative); Ketones Urine 3+ (Negative); Leukocyte Esterase Urine Negative (Negative); Nitrite Urine Negative (Negative); RBC Urine Automated 0-4 /hpf (0-4); Specific Gravity Urine 1.026 (1.000-1.030); Urobilinogen Urine Negative (Negative); pH Urine >= 9.0 (4.5-7.5)
[2020-03-19 13:58] LABS: Protein Urine Negative (Negative); Sulfosalicylic Acid Urine Negative (Negative)
[2020-03-19] MEDS ORDERED: LACTATED RINGER'S 1,000 ML IV STA (14:04)
--- NOTE | 2020-03-19 17:22 | History & Physical Report ---
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 Has failed 4 rounds of antiemetics and IV fluids in the ER Bring in on observation overnight for IV fluid hydration and further antiemetics He usually does well with IV Phenergan and Reglan Also has a history of marijuana abuse-recommend discontinuing this as could have cannabis induced cyclic vomiting syndrome -He should really follow-up with his GI doctor in [place] given that he is now had 3 admissions in the last 6 weeks for intractable nausea/vomiting to see if there is anything further that could be done for him -Follow BMP in the morning -Keep n.p.o. except ice chips and sips for now and advance as tolerated -Start normal saline with 20 mEq potassium chloride at 125 mL's per hour -Monitoring on medical floor with telemetry given possibility of QT prolongation with methadone and multiple antiemetics with QT prolonging properties-QTC here is 452 (2) Gastroparesis: As above, takes Motilium at home Continue Reglan and antiemetics as above Follow-up with GI specialist in [place] soon as possible after discharge (3) Type I diabetes mellitus: He can continue his home insulin pump Ordered Accu-Cheks every 6 hours while n.p.o. and he can plug in the results to his insulin pump Not in DKA at this time Follow BMP in the morning (4) History of opioid abuse: Continue home methadone 39 mg p.o. once daily (5) Marijuana use: Needs counseling on cessation (6) DVT prophylaxis: Lovenox SQ Disposition-bring in on observation overnight, hopeful for discharged home tomorrow History of Present Illness Chief Complaint: Nausea/vomiting Primary Care Provider: Oneil Tinajero MD This patient is a 25-year-old male well-known to me with a history of type 1 diabetes with insulin pump, gastroparesis, history of heroin abuse now on methadone, who presents to the ER again with intractable nausea and vomiting that he attributes to "my gastroparesis." He denies any lightheadedness or headache, no fevers or chills, no chest pain or shortness of breath, no cough. He denies any abdominal pain. No diarrhea. He was given IV Reglan, IV Phene rgan, IV diphenhydramine, and IV Zofran in the ER along with IV fluids and he still was vomiting when I saw him. An acute abdominal series was negative for obstruction or pneumoperitoneum. He reports that he follows a gastroparesis diet at home and eat small amounts. He follows with a Dr. Gisselle Munguia of GI for his gastroparesis at [facility]. His labs were unremarkable and he was not in DKA. He will be brought into the hospital on observation for intractable nausea and vomiting in the setting of gastroparesis. Allergies Allergy/AdvReac Type Severity Reaction Status Date / Time Cephalosporins Allergy Intermediate Hives Verified 03/19/20 12:57 Sulfa (Sulfonamide Allergy Intermediate Hives Verified 03/19/20 12:57 Antibiotics) azithromycin [From Zithromax] AdvReac Intermediate Hives Verified 03/19/20 12:57 Home Medications Home Medications Medication Instructions Recorded Confirmed Type Motilium 10 mg PO TID 12/10/19 03/19/20 History methadone 39 mg PO QAM 12/10/19 03/19/20 History ondansetron 4 mg PO Q6 PRN 12/10/19 03/19/20 History insulin lispro 100 unit/mL 34 units SQ DAILY ml 01/15/20 03/19/20 History subcutaneous pen glucagon 3 mg INTNAS ONCE PRN 01/26/20 03/19/20 History potassium phosphate, monobasic 500 mg PO BID #6 tab 01/28/20 03/19/20 Rx Past Med/Surg History Medical History Anemia Diabetes Hepatitis History of opioid abuse Pneumomediastinum Soft tissue abscess Surgical History No pertinent past surgical history Family History Other Cancer Diabetes Heart disease Hypertension Social History Smoking Status: Never smoker Second Hand Exposure: No; Hx Alcohol Use: No Hx Substance Use: Yes Prescribed Medications: Marijuana Last Used Substance: Unknown Last Used Substance Other:: Last use of MJ was 2 weeks ago Substance Use Type Other:: history of iv drug use Preferred Language: Syriac Communication Ability: Effective Line Producer Required: No Beliefs That Will Affect Care: None marital status: Single Current Living Situation: Parent Feels Safe at Home: Yes Assistive Devices: None Review of Systems Review of Systems: All systems reviewed & are unremarkable except as noted in HPI & below Physical Exam Constitutional: + ill appearing, + thin and cooperative; no acute distress and not lethargic Eyes: + anicteric sclerae ENMT: external ear and nose normal, oropharynx normal Neck: trachea midline, no thyromegaly Respiratory: normal respiratory effort, lungs clear to auscultation Cardiovascular: RRR, no murmur, no edema Chest (Breasts): Chest: normal inspection of chest Gastrointestinal (Abdomen): normal bowel sounds, soft, nontender, no hepatosplenomegaly Musculoskeletal: Extremities: extremities normal to inspection; no cyanosis and no clubbing Skin: no rashes, warm and dry Neurologic: moves all extremities and awake; no focal motor deficits Psychiatric: Orientation: alert and oriented x 3 Speech: normal rate/rhythm/volume of speech Affect: + flat affect Lymphatic: no lymphedema Results & Data Results & Data ([facility]) Vital Signs (Past 12 Hours) Vital Signs Temp Pulse Resp BP Pulse Ox 03/19/20 13:24 76 17 128/74 100 03/19/20 12:15 36.8 C 83 18 117/76 98 Laboratory Results 03/19/20 03/19/20 03/19/20 Range/Units 13:30 12:25 12:25 WBC 9.34 (4.8-10.8) K/uL RBC 4.71 (4.7-6.1) M/uL Hgb 13.7 L (14.0-18.0) g/dL Hct 40.9 L (42-52) % MCV 86.8 (80-100) fL MCH 29.1 (25-34) pg MCHC 33.5 (32-36) g/dL RDW Std Deviation 39.9 (36.4-46.3) fL RDW Coeff of Carlos 12.4 (11.5-14.5) % Plt Count 214 (130-400) K/uL MPV 10.8 H (7.4-10.4) fL Immature Gran % (Auto) 0.1 % Neut % (Auto) 79.1 % Lymph % (Auto) 14.3 % [place] % (Auto) 5.0 % Eos % (Auto) 1.2 % Baso % (Auto) 0.3 % Neut # (Auto) 7.38 H (1.4-6.5) K/uL Lymph # (Auto) 1.34 (1.2-3.4) K/uL [place] # (Auto) 0.47 (0.11-0.59) K/uL Eos # (Auto) 0.11 (0-0.5) K/uL Baso # (Auto) 0.03 (0-0.2) K/uL Immature Gran # (Auto) 0.01 (0.00-0.02) K/uL Sodium 141 (136-145) mmol/L Potassium 3.7 (3.5-5.1) mmol/L Chloride 106 (98-107) mmol/L Carbon Dioxide 27 (21-32) mmol/L Anion Gap 8.0 (3-11) BUN 15 (7-18) mg/dl Creatinine 1.04 (0.6-1.4) mg/dl Est Cr Clr Drug Dosing 112.3 ml/min Est GFR ( Amer) 115.9 Est GFR (Non-Af Amer) 100.0 BUN/Creatinine Ratio 14.2 (10-20) Glucose 168 H (70-99) mg/dl POC Glucose (70-99) mg/dl Calcium 9.4 (8.5-10.1) mg/dl Magnesium 1.8 (1.8-2.4) mg/dl Total Bilirubin 0.7 (0.2-1) mg/dl AST 15 (15-37) U/L ALT 35 (12-78) U/L Alkaline Phosphatase 81 (45-117) U/L Total Protein 8.3 H (6.4-8.2) gm/dl Albumin 4.7 (3.4-5.0) gm/dl Globulin 3.6 (2.5-4.0) gm/dl Albumin/Globulin Ratio 1.3 (0.9-2) Urine Color Yellow Urine Appearance Clear (Clear) Urine pH >= 9.0 H (4.5-7.5) Ur Specific [place] 1.026 (1.000-1.030) Urine Protein Negative (Negative) Urine Glucose (UA) Negative (Negative) Urine Ketones 3+ H (Negative) Urine Blood Negative (Negative) Urine Nitrite Negative (Negative) Urine Bilirubin Negative (Negative) Urine Urobilinogen Negative (Negative) Ur Leukocyte Esterase Negative (Negative) Urine WBC (Auto) 1-5 (0-5) /hpf Urine RBC (Auto) 0-4 (0-4) /hpf U Hyaline Cast (Auto) 10-30 H (0-5) /lpf U Epithel Cells (Auto) >30 H (0-5) /lpf Urine Bacteria (Auto) Negative (Negative) Ur Renal Epithelial Cell Not Reportable 03/19/20 Range/Units 12:15 WBC (4.8-10.8) K/uL RBC (4.7-6.1) M/uL Hgb (14.0-18.0) g/dL Hct (42-52) % MCV (80-100) fL MCH (25-34) pg MCHC (32-36) g/dL RDW Std Deviation (36.4-46.3) fL RDW Coeff of Carlos (11.5-14.5) % Plt Count (130-400) K/uL MPV (7.4-10.4) fL Immature Gran % (Auto) % Neut % (Auto) % Lymph % (Auto) % [place] % (Auto) % Eos % (Auto) % Baso % (Auto) % Neut # (Auto) (1.4-6.5) K/uL Lymph # (Auto) (1.2-3.4) K/uL [place] # (Auto) (0.11-0.59) K/uL Eos # (Auto) (0-0.5) K/uL Baso # (Auto) (0-0.2) K/uL Immature Gran # (Auto) (0.00-0.02) K/uL Sodium (136-145) mmol/L Potassium (3.5-5.1) mmol/L Chloride (98-107) mmol/L Carbon Dioxide (21-32) mmol/L Anion Gap (3-11) BUN (7-18) mg/dl Creatinine (0.6-1.4) mg/dl Est Cr Clr Drug Dosing ml/min Est GFR ( Amer) Est GFR (Non-Af Amer) BUN/Creatinine Ratio (10-20) Glucose (70-99) mg/dl POC Glucose 143 H (70-99) mg/dl Calcium (8.5-10.1) mg/dl Magnesium (1.8-2.4) mg/dl Total Bilirubin (0.2-1) mg/dl AST (15-37) U/L ALT (12-78) U/L Alkaline Phosphatase (45-117) U/L Total Protein (6.4-8.2) gm/dl Albumin (3.4-5.0) gm/dl Globulin (2.5-4.0) gm/dl Albumin/Globulin Ratio (0.9-2) Urine Color Urine Appearance (Clear) Urine pH (4.5-7.5) Ur Specific [place] (1.000-1.030) Urine Protein (Negative) Urine Glucose (UA) (Negative) Urine Ketones (Negative) Urine Blood (Negative) Urine Nitrite (Negative) Urine Bilirubin (Negative) Urine Urobilinogen (Negative) Ur Leukocyte Esterase (Negative) Urine WBC (Auto) (0-5) /hpf Urine RBC (Auto) (0-4) /hpf U Hyaline Cast (Auto) (0-5) /lpf U Epithel Cells (Auto) (0-5) /lpf Urine Bacteria (Auto) (Negative) Ur Renal Epithelial Cell Diagnostic Findings XR abdomen 2V w PA chest HISTORY: 25 years-old Male nv acute nausea and vomiting COMPARISON: Chest radiograph 01/26/2020, CT abdomen and pelvis 05/10/2018. TECHNIQUE: PA view of the chest with erect and supine views of the abdomen FINDINGS: Cardiomediastinal and hilar silhouettes are within normal limits. No pneumothorax, pleural effusion, airspace consolidation or overt pulmonary edema. Bones of the chest appear grossly intact. No pneumatosis or pneumoperitoneum. Bowel gas pattern is nonobstructive. There are a few small bowel air-fluid levels noted within the left midabdomen involving nondilated prominent loops of small bowel. No definite urolith. Left pelvic basin calcifications measure up to 7 mm suggestive of phleboliths. No acute fracture. IMPRESSION: 1. No acute processes of the chest. 2. Nonobstructive bowel gas pattern without pneumoperitoneum. 3. A few small bowel air-fluid levels of the left midabdomen may reflect a mild enteritis. ECG Additional Comments: ECG on 03/19/2020 at 1321 with normal sinus rhythm, incomplete right bundle branch block, rate 63, unchanged from previous Code Status & VTE Plan Code Status Full code VTE Prophylaxis Plan VTE Prophylaxis will be ordered: Yes PG Care Time/CCT Total # of Minutes Spent Total Time Spent with Patient: Total time spent is greater than 50% in coordination of care (as documented) at patient's floor/unit and/or counseling patient: Coding Level of Care Code 74868 OBS Care - Level 2 Diagnoses Intractable vomiting with nausea R11.2 Gastroparesis K31.84 Type I diabetes mellitus E10.9 History of opioid abuse Z87.898 Marijuana use F12.90 DVT prophylaxis Z29.9
[2020-03-19] MEDS ORDERED: GLUCOSE 40% GEL 15 GM TUBE PO PRN (19:11)
[2020-03-19] MEDS ORDERED: GLUCOSE 10 TABS/TUBE PO PRN (19:11)
[2020-03-19] MEDS ORDERED: PROMETHAZINE HCL 12.5 MG in SODIUM CHLORIDE 0.9% 50 ML IV PRN (19:11)
[2020-03-19] MEDS ORDERED: GLUCAGON FOR INJ 1 MG VIAL SQ PRN (19:11)
[2020-03-19] MEDS ORDERED: CARBOHYDRATES FOR HYPOGLYCEMIA PO PRN (19:11)
[2020-03-19] MEDS ORDERED: DEXTROSE 50% 50 ML SYRINGE IV PRN (19:11)
[2020-03-19] MEDS: METOCLOPRAMIDE HCL INJ 5 MG/ML 2 ML VIAL IV PRN (19:25)
[2020-03-19] MEDS: NSS + 20MEQ KCL 20 MEQ/1,000 ML BAG IV SCH (20:26)
[2020-03-19] MEDS: ENOXAPARIN INJ 40 MG/0.4 ML SYR SQ SCH (20:35)
[2020-03-20] MEDS: ONDANSETRON INJ 2 MG/ML 2 ML VIAL IV PRN ×2 (04:37→18:03)
[2020-03-20] MEDS: NSS + 20MEQ KCL 20 MEQ/1,000 ML BAG IV SCH ×3 (04:40→21:32)
[2020-03-20 07:41] LABS: Basophils # (auto) 0.01 K/uL (0-0.2); Basophils % (auto) 0.1 %; Hematocrit (blood only) 35.1 % (42-52); Hemoglobin 11.5 g/dL (14.0-18.0); Immature Granulocytes # (auto) 0.02 K/uL (0.00-0.02); Immature Granulocytes % (auto) 0.2 %; Lymphocytes # (auto) 0.85 K/uL (1.2-3.4); Mean Corpuscular Hemoglobin 28.5 pg (25-34); Mean Corpuscular Hgb Conc 32.8 g/dL (32-36); Mean Corpuscular Volume 86.9 fL (80-100); Mean Platelet Volume 11.2 fL (7.4-10.4); Monocytes # (auto) 0.64 K/uL (0.11-0.59); Neutrophils # (auto) 9.07 K/uL (1.4-6.5); Neutrophils % (auto) 85.7 %; Platelet Count 191 K/uL (130-400); RDW Coefficient of Variation 12.8 % (11.5-14.5); Red Blood Count 4.04 M/uL (4.7-6.1); White Blood Count 10.59 K/uL (4.8-10.8)
[2020-03-20 09:00] LABS: BUN Creatinine Ratio 15.5 (10-20); Calcium 9.2 mg/dl (8.5-10.1); Est GFR (African American) 138.1; Est GFR (Non-African American) 119.1; Magnesium 1.5 mg/dl (1.8-2.4); Potassium 3.6 mmol/L (3.5-5.1)
[2020-03-20] MEDS ORDERED: METHADONE ORAL SOLN 2 MG/ML PO SCH (09:00)
[2020-03-20] MEDS: METHADONE ORAL SOLN 2 MG/ML PO SCH (10:06)
[2020-03-20] MEDS: PATIENT'S OWN CONTROLLED MED PO SCH (10:07)
[2020-03-20] MEDS: MAGNESIUM SULFATE / D5W 1 GM/100 ML BAG IV SCH ×2 (11:31→13:31)
[2020-03-20] MEDS: METOCLOPRAMIDE HCL INJ 5 MG/ML 2 ML VIAL IV PRN (15:59)
[2020-03-20] MEDS ORDERED: INSULIN HUMAN LISPRO (humaLOG) 100 UNITS/ML VIAL SC PRN (17:15)
[2020-03-20] MEDS ORDERED: PHARMACY GLYCEMIC MGMT CONSULT PRN (17:28)
[2020-03-20] MEDS ORDERED: PHARMACY GLYCEMIC MGMT CONSULT STA (17:39)
[2020-03-20] MEDS ORDERED: INSULIN GLARGINE SOLOSTAR 100 UNITS/ML 3 ML PEN SC ONE (17:45)
--- NOTE | 2020-03-20 17:49 | Hospitalist Progress Note ---
Date of Service March 20, 2020 Assessment & Plan (1) Intractable vomiting with nausea: 25-year-old male with history of gastroparesis type 1 diabetes, opioid dependence and marijuana use, here with recurrent intractable nausea and vomiting likely secondary gastroparesis. Has failed 4 rounds of antiemetics and IV fluids in the ER Bring in on observation overnight for IV fluid hydration and further antiemetics He usually does well with IV Phenergan and Reglan Also has a history of marijuana abuse-recommend discontinuing this as could have cannabis induced cyclic vomiting syndrome -He should really follow-up with his GI doctor in [place] given that he is now had 3 admissions in the last 6 weeks for intractable nausea/vomiting to see if there is anything further that could be done for him States he has f/u in March Trial of clears for dinner with zofran pre-PO -Monitoring on medical floor with telemetry given possibility of QT prolongation with methadone and multiple antiemetics with QT prolonging properties-QTC here is 452 (2) Gastroparesis: As above, takes Motilium at home Continue Reglan and antiemetics as above Follow-up with GI specialist in [place] soon as possible after discharge (3) Type I diabetes mellitus: Had been using home pump, however out of insulin currently and does not have tubing kit Glycemic c/s to determine dosing until able to fill the pump (4) History of opioid abuse: Continue home methadone 39 mg p.o. once daily (5) Marijuana use: Needs counseling on cessation (6) DVT prophylaxis: Lovenox SQ Admission and Anticipated Discharge Date Admission Date: March 19, 2020 Subjective Pt states he is feeling better, but still with some nausea. States last emesis was around 9:30a. He would like to try clears with zofran prior to eating for dinner. Pt denies fever, SOB, chest pain, abd pain, c/d, LE pain or swelling. Pt's insulin pump has run out. He does not have tubing for refill. Review of Systems Review of Systems: Pertinent positives and negatives reviewed in HPI--all others negative Physical Exam Constitutional: WD/WN, vitals as above + ill appearing and + thin Eyes: normal visual khanna by confrontation and + anicteric sclerae Neck: normal visual inspection and trachea midline Respiratory: normal respiratory effort, lungs clear to auscultation Cardiovascular: Rate/Rhythm: regular rate and regular rhythm Gastrointestinal (Abdomen): Inspection/Auscultation: abdomen not distended Percussion/Palpation: abdomen soft; abdomen nontender Musculoskeletal: Head/Neck/Chest: normocephalic and head atraumatic negative for edema, peripheral pulses intact Skin: no rashes, warm and dry Neurologic: awake; not confused Speech / Cognition: normal speech Psychiatric: Orientation: alert, oriented x 3 and cooperative Affect: + irritable affect Results & Data Results & Data ([facility]) Vital Signs (Past 12 Hours) Vital Signs Temp Pulse Pulse Resp BP Pulse Ox 03/20/20 17:32 36.4 C L 113 H 24 124/66 100 03/20/20 15:49 36.7 C 79 14 105/69 98 03/20/20 11:46 37.1 C 92 H 16 99/60 L 98 03/20/20 07:39 36.7 C 78 18 104/62 97 03/20/20 07:06 96 H PG Care Time/CCT Total # of Minutes Spent Total Time Spent with Patient: Total time spent is greater than 50% in coordin ation of care (as documented) at patient's floor/unit and/or counseling patient: Coding Level of Care Code 76177 Subseq Hosp Care Lvl 3 Diagnoses Intractable vomiting with nausea R11.2 Gastroparesis K31.84 Type I diabetes mellitus E10.9 History of opioid abuse Z87.898 Marijuana use F12.90 DVT prophylaxis Z29.9
[2020-03-20] MEDS: INSULIN ASPART 100 UNITS/ML 3 ML PEN SC SCH ×2 (18:35→21:34)
[2020-03-20] MEDS: ENOXAPARIN INJ 40 MG/0.4 ML SYR SQ SCH ×2 (21:31→21:37)
[2020-03-21] MEDS ORDERED: INSULIN ASPART 100 UNITS/ML 3 ML PEN SC ONE (02:00)
[2020-03-21] MEDS: NSS + 20MEQ KCL 20 MEQ/1,000 ML BAG IV SCH ×2 (05:18→13:12)
[2020-03-21] MEDS: METHADONE ORAL SOLN 2 MG/ML PO SCH (08:13)
[2020-03-21] MEDS: INSULIN ASPART 100 UNITS/ML 3 ML PEN SC SCH ×3 (08:18→18:18)
[2020-03-21] MEDS: PATIENT'S OWN CONTROLLED MED PO SCH (08:18)
--- NOTE | 2020-03-21 12:12 | Electrocardiogram Report ---
Test Reason : Blood Pressure : / mmHG Vent. Rate : 063 BPM Atrial Rate : 063 BPM P-R Int : 152 ms QRS Dur : 106 ms QT Int : 442 ms P-R-T Axes : 071 056 076 degrees QTc Int : 452 ms Poor data quality, interpretation may be adversely affected Normal sinus rhythm Possible Left atrial enlargement Incomplete right bundle branch block Borderline ECG When compared with ECG of 17-OCT-2019 15:40, Vent. rate has decreased BY 33 BPM Confirmed by Chris Longoria ([id number]) on 03/21/2020 12:12:35 PM Referred By: Confirmed By:Chris Longoria
--- NOTE | 2020-03-21 13:16 | Pharmacy Report ---
Pharmacy Glycemic Short Note 2 - Date of Service March 21, 2020 - Glycemic Short BSG Results (Last 24 hours): 03/20/20 03/20/20 03/20/20 16:57 17:34 20:37 POC Glucose 259 H 304 H* 268 H 03/21/20 03/21/20 03/21/20 01:57 07:51 11:34 POC Glucose 132 H 81 193 H OUTPATIENT ANTIDIABETIC REGIMEN: Insulin Pump Basal: 6191-4210 0.9 unit/hr 6030-5737 1.2 units/hr Total: 26.1 units Carb Ratio: 1:7.7 (2116-0052) 1:9.5 (2630-5287) 1:9 (5054-5283) Sensitivity Factor: 36 with BG target of 90-140 TDD: ~22-23 units (95% basal; 5% bolus) ASSESSMENT: * Mr. Tijerina admitted last evening with n/v, initially maintained on insulin infusion but transitioned to basal/bolus when pump ran out of insulin (no tubing set to change). * Received 25 units of lantus ~1829 and novolog CF/CR 25/04. This is similar to past admissions. Will continue for now * Plan for patient to be discharged today, patient will have his ride bring in infusion set to restart insulin pump prior to discharge * If patient not discharged prior to 1829 or have his tubing set- will need additional lantus dose- could do full 24 hour dose and have patient wait until tomorrow evening to resume and do manual basal/bolus or resume insulin pump with modified temporary basal. PLAN FOR INPATIENT GLYCEMIC CONTROL: * Hold outpatient oral diabetes medications * Basal insulin * Lantus- none scheduled will f/u to see if needed * Bolus insulin * NovoLog per scale ACHS or Q6hrs while NPO * Goal Range: Low 120 mg/dL - High 150 mg/dL * Correction Factor: 30 mg/dL/unit * Nutritional / Prandial insulin per carb ratio of 1 unit per 10 grams CHO consumed PLAN FOR DISCHARGE: * A1c 7.1%, continue current outpatient insulin pump settings
--- NOTE | 2020-03-21 15:44 | Discharge Summary ---
Date of Service March 21, 2020 Admission HPI Per Admitting Provider This patient is a 25-year-old male well-known to me with a history of type 1 diabetes with insulin pump, gastroparesis, history of heroin abuse now on methadone, who presents to the ER again with intractable nausea and vomiting that he attributes to "my gastroparesis." He denies any lightheadedness or headache, no fevers or chills, no chest pain or shortness of breath, no cough. He denies any abdominal pain. No diarrhea. He was given IV Reglan, IV Phenergan, IV diphenhydramine, and IV Zofran in the ER along with IV fluids and he still was vomiting when I saw him. An acute abdominal series was negative f or obstruction or pneumoperitoneum. He reports that he follows a gastroparesis diet at home and eat small amounts. He follows with a Dr. Gisselle Munguia of GI for his gastroparesis at [facility]. His labs were unremarkable and he was not in DKA. He will be brought into the hospital on observation for intractable nausea and vomiting in the setting of gastroparesis. Principal Diagnosis Pt is feeling better overall. Last emesis was AM yesterday. He has been tolerating clears without issue. He feels his BS are being managed decently with using scheduled insulins in the setting of his pump running out of insulin. Pt denies fever, SOB, chest pain, abd pain, n/v/c/d, LE pain or swelling. Discharge Exam Constitutional + thin; no acute distress Eyes normal visual khanna by confrontation and + anicteric sclerae Neck normal visual inspection and trachea midline Respiratory normal respiratory effort, lungs clear to auscultation Cardiovascular Rate/Rhythm: regular rate and regular rhythm Gastrointestinal (Abdomen) Inspection/Auscultation: abdomen not distended Percussion/Palpation: abdomen soft; abdomen nontender Musculoskeletal Head/Neck/Chest: normocephalic and head atraumatic Skin no rashes, warm and dry Neurologic awake; not confused Speech / Cognition: normal speech Psychiatric A+Ox3, euthymic affect Discharge Data Allergies Allergy/AdvReac Type Severity Reaction Status Date / Time Cephalosporins Allergy Intermediate Hives Verified 03/19/20 12:57 Sulfa (Sulfonamide Allergy Intermediate Hives Verified 03/19/20 12:57 Antibiotics) azithromycin [From Zithromax] AdvReac Intermediate Hives Verified 03/19/20 12:57 Consultations 03/19/20 15:35 ED Decision to Admit Stat Hospital Course (1) Intractable vomiting with nausea: 25-year-old male with history of gastroparesis type 1 diabetes, opioid dependence and marijuana use, here with recurrent intractable nausea and vomiting likely secondary gastroparesis. Failed 4 rounds of antiemetics and IV fluids in the ER CBC, PRP WNL C/AXR neg for acute UA noted only for ketones He usually does well with IV Phenergan and Reglan, although did require longer hospital based tx this time c/w other episodes Also has a history of marijuana abuse-recommend discontinuing this as could have cannabis induced cyclic vomiting syndrome -He should really follow-up with his GI doctor in [place] given that he is now had 3 admissions in the last 6 weeks for intractable nausea/vomiting to see if there is anything further that could be done for him States he has f/u in March (2) Gastroparesis: As above, takes Motilium at home Continue Reglan and antiemetics as above Follow-up with GI specialist in [place] soon as possible after discharge (3) Type I diabetes mellitus: Had been using home pump during admission, however out of insulin currently and does not have tubing kit Glycemic c/s to determine dosing until able to fill the pump (4) History of opioid abuse: Continue home methadone 39 mg p.o. once daily (5) Marijuana use: Needs counseling on cessation (6) DVT prophylaxis: Lovenox SQ Total Time Total Time Spent Total Time Spent (In Minutes): >30 Total Time Includes: Examination of the Patient, Discharge Planning, Medication Reconciliation, Communication With Other Providers and Other Discharge Plan Discharge Items Patient Disposition: Home - Self-Care Reason For Visit: INTRACTABLE NAUSEA/VOMITING Discharge Diagnosis: Intractable nausea and vomiting Condition on Discharge: Good Activity: Resume your previous activity Non-emergency contact: Primary Care Provider and Application Dba Call non-emergency contact if: you have any medication questions and your symptoms worsen Follow-up/Referrals: Oneil Tinajero MD [Primary Care Provider] - 03/24/20 10:10 am (Please call [phone] if you need to reschedule this appointment. This appoinment will be at the [place] office and you will be seeing Dr. Ledezma.) Diet: Carb Count or DM1 Addtl Attending Provider Instructions: You should follow up with your doctors at [facility] as soon as you are able given your recent repeated recurrences of intractable nausea and vomiting leading to multiple hospitalizations Pending Studies at Discharge: No Stand-Alone Forms: My Son[employer]ation, Smoking Cessation Medications and DC Order Prescriptions: Continued insulin lispro 100 unit/mL insulin pen 34 units SQ DAILY RF: 0 methadone 10 mg Tablet 39 mg PO QAM RF: 0 ondansetron 4 mg tablet,disintegrating 4 mg PO Q6 PRN (Reason: Nausea And Vomiting) RF: 0 Motilium 10 mg PO TID RF: 0 glucagon 3 mg/actuation spray,non-aerosol 3 mg INTNAS ONCE PRN (Reason: bsg emergency) RF: 0 potassium phosphate, monobasic 500 mg tablet,soluble 500 mg PO BID Qty: 6 RF: 0 Discharge Orders: Discharge Order (Routine); Ordered 03/21/20 Ordered By: Sarah Lara Admission Data Admit Date/Time: 03/19/20 17:06 Attending Provider: Sarah Lara Admit Provider: Carly Mccullough Primary Care Provider: Oneil Tinajero Other Providers: Carly Mccullough Other Interventions: Discharge Summary Assessment (RN) Last Done: 03/21/20 16:17 Coding Level of Care Code D/C Day Management >30 mins Diagnoses Intractable vomiting with nausea R11.2 Gastroparesis K31.84 Type I diabetes mellitus E10.9 History of opioid abuse Z87.898 Marijuana use F12.90 DVT prophylaxis Z29.9
[2020-03-21] MEDS ORDERED: INSULIN GLARGINE SOLOSTAR 100 UNITS/ML 3 ML PEN SC ONE (19:00)
== END 2020-03-21 20:15 | disposition home or self-care (01) ==
LOC: ED 12:01 → 2W 12:01 → SUATTDRO 17:06 → 2W 18:29
DX: R11.2 Nausea with vomiting, unspecified; F11.21 Opioid dependence, in remission; D64.9 Anemia, unspecified; Z96.41 Presence of insulin pump (external) (internal); Z88.1 Allergy status to other antibiotic agents; Z79.899 Other long term (current) drug therapy; Z88.2 Allergy status to sulfonamides; F12.10 Cannabis abuse, uncomplicated; E10.9 Type 1 diabetes mellitus without complications; K31.84 Gastroparesis

== ENCOUNTER 2020-05-15 19:49 | Observation (INO) ==
[2020-05-15] MEDS ORDERED: PROCHLORPERAZINE 2 ML IV ONE (20:04)
[2020-05-15] MEDS ORDERED: diphenhydrAMINE 50 MG/ML VIAL IV STA (20:04)
[2020-05-15] MEDS: SODIUM CHLORIDE 0.9% 1000ML 1,000 ML IV SCH ×2 (20:17→21:19)
[2020-05-15 20:21] LABS: Basophils # (auto) 0.03 K/uL (0-0.2); Basophils % (auto) 0.2 %; Hematocrit (blood only) 41.7 % (42-52); Hemoglobin 14.1 g/dL (14.0-18.0); Immature Granulocytes # (auto) 0.04 K/uL (0.00-0.02); Immature Granulocytes % (auto) 0.3 %; Lymphocytes # (auto) 0.59 K/uL (1.2-3.4); Mean Corpuscular Hemoglobin 29.9 pg (25-34); Mean Corpuscular Hgb Conc 33.8 g/dL (32-36); Mean Corpuscular Volume 88.3 fL (80-100); Mean Platelet Volume 11.4 fL (7.4-10.4); Monocytes % (auto) 3.4 %; Neutrophils # (auto) 13.68 K/uL (1.4-6.5); Neutrophils % (auto) 92.1 %; Platelet Count 271 K/uL (130-400); RDW Coefficient of Variation 12.7 % (11.5-14.5); RDW Standard Deviation 40.9 fL (36.4-46.3); Red Blood Count 4.72 M/uL (4.7-6.1); White Blood Count 14.84 K/uL (4.8-10.8)
[2020-05-15 20:55] LABS: Albumin Globulin Ratio 1.4 (0.9-2); Albumin Level 5.1 gm/dl (3.4-5.0); BUN Creatinine Ratio 12.5 (10-20); Calcium 10.3 mg/dl (8.5-10.1); Creatinine Clr Calc Pharmacy 95.7 ml/min; Est GFR (African American) 98.5; Globulin 3.7 gm/dl (2.5-4.0); Total Protein 8.8 gm/dl (6.4-8.2)
[2020-05-15 21:48] LABS: Base Excess VBG -1.1 mEq/L; HCO3 VBG 25 mmol/L; PCO2 VBG 50 mmHg (38-50); PO2 VBG 22 mmHg; pH VBG 7.32 (7.36-7.41)
[2020-05-15 21:49] LABS: Oxygen Saturation VBG < 60.0 %
[2020-05-15 21:52] LABS: Potassium 4.3 mmol/L (3.5-5.1)
[2020-05-15 21:57] LABS: Magnesium 1.5 mg/dl (1.8-2.4)
[2020-05-15] MEDS ORDERED: ONDANSETRON INJ 2 MG/ML 2 ML VIAL IV STA (22:12)
[2020-05-15] MEDS ORDERED: NovoLIN-R INSULIN PER UNIT CHARGE SC STA (22:12)
[2020-05-15] MEDS ORDERED: SODIUM CHLORIDE 0.9% 1000ML 1,000 ML IV SCH (22:15)
--- NOTE | 2020-05-15 22:49 | Emergency Department Note ---
History of Present Illness General Chief complaint: Vomiting Stated complaint: NAUSEA, VOMITING Time Seen by Provider: 05/15/20 19:56 History of Present Illness This is a 25-year-old male presenting to the emergency department for evaluation of nausea and vomiting for the past day. Patient has a history of diabetes and chronic marijuana use. He has been admitted to this facility multiple times for his vomiting symptoms. He does take methadone on a daily basis. The patient has an insulin pump, and states his sugars have been good today. He has not been able to because of his vomiting. He has abdominal cramping but no distinct abdominal pain. He rates his overall discomfort a /10. Home Medications Medication Instructions Recorded Confirmed Type glucagon 3 mg INTNAS ONCE PRN 01/26/20 05/15/20 History diphenhydramine HCl [Benadryl] 25 mg PO HS PRN 05/15/20 05/15/20 History insulin lispro [Humalog U-100 1 sliding scale dose SUBCUT 05/15/20 05/15/20 History Insulin] USEASDIRECTD melatonin 5 mg PO HS 05/15/20 05/15/20 History methadone 33 mg PO DAILY 05/15/20 05/15/20 History Allergies Allergy/AdvReac Type Severity Reaction Status Date / Time Cephalosporins Allergy Intermediate Hives Verified 05/15/20 20:42 Sulfa (Sulfonamide Allergy Intermediate Hives Verified 05/15/20 20:42 Antibiotics) azithromycin [From Zithromax] AdvReac Intermediate Hives Verified 05/15/20 20:42 Past Med/Surg History Medical History (Updated 05/16/20 @ 23:58 by Rui Hendrix PA-C) Anemia Diabetes Hepatitis History of opioid abuse Pneumomediastinum Soft tissue abscess Surgical History No pertinent past surgical history Family History Other Cancer Diabetes Heart disease Hypertension Social History Smoking Status: Never smoker Cigarettes Per Day: 10 cigarettes per day; Second Hand Exposure: No; Hx Alcohol Use: No Hx Substance Use: Yes Prescribed Medications: Marijuana Last Used Substance: Unknown Last Used Substance Other:: Last use of MJ was 2 weeks ago Substance Use Type Other:: Pt states he does not use substances, but informed ED he uses marijuana Preferred Language: Chinese Communication Ability: Effective Rn Intake Required: No Beliefs That Will Affect Care: None marital status: Single Current Living Situation: Parent Feels Safe at Home: Yes Assistive Devices: None Review of Systems A total of 10 systems reviewed and were otherwise negative Physical Exam Vital Signs Vital Signs - 24 hr 05/16/20 01:00 Pulse Rate [Finger] 101 H Pulse Rhythm [Finger] Regular Respiratory Rate 18 Blood Pressure [Right Arm] 95/55 L Blood Pressure Mean [Right Arm] 68 Pulse Oximetry 97 Oxygen Delivery Method Room Air VITALS: Vitals are noted on the nurse's note and reviewed by myself. Vital signs with mild tachycardia. GENERAL: Well-developed, well-nourished, white male, who is in no acute distress and resting comfortably. Patient is cooperative with the examination. HEAD: Normocephalic atraumatic. MOUTH: Mucous membranes moist. Tonsils are not enlarged. Pharynx without erythema, blood, or exudate. Uvula midline. Airway patent. NECK: Supple without nuchal rigidity. No lymphadenopathy. No thyromegaly. Cervical spine is nontender. HEART: Regular rate and rhythm without murmurs gallops or rubs. LUNGS: Clear to auscultation bilaterally without wheezes, rales or rhonchi. No retractions or accessory muscle use. ABDOMEN: Positive normal bowel sounds x 4. Soft, nontender, without masses or organomegaly. No guarding or rebound tenderness. MUSCULOSKELETAL: No muscle atrophy, erythema, or edema noted. Full range of motion in all extremities NEURO: Patient was alert and oriented to person place and time. CN II through XII grossly intact. SKIN: The skin was without tenting Course Administered Medications Discontinued Medications Diphenhydramine HCl (Diphenhydramine 50 Mg/Ml Vial) 50 mg IV NOW STA Stop: 05/15/20 20:05 Last Admin: 05/15/20 20:17 Dose: 50 mg Documented by: [id number] Glucose (Glucose 40% Gel 15 Gm Tube) 15 - 30 gm PO UD PRN; Protocol PRN Reason: Hypoglycemia Protocol Stop: 06/15/20 04:17 Last Admin: 05/16/20 04:29 Dose: 30 gm Documented by: [id number] Prochlorperazine (Compazine) 2 mls @ 1 mls/min IV ONE ONE Stop: 05/15/20 20:05 Last Admin: 05/15/20 20:17 Dose: 1 mls/min Documented by: [id number] Sodium Chloride (Nss 1000ml) 1,000 mls @ 999 mls/hr IV .Q1H1M YUE Stop: 05/15/20 22:05 Last Infusion: 05/15/20 23:25 Dose: 0 mls/hr Documented by: [id number] Admin: 05/15/20 21:19 Dose: 999 mls/hr Documented by: [id number] Infusion: 05/15/20 21:18 Dose: 999 mls/hr Documented by: [id number] Admin: 05/15/20 20:17 Dose: 999 mls/hr Documented by: [id number] Sodium Chloride (Nss 1000ml) 1,000 mls @ 999 mls/hr IV .Q1H1M YUE Stop: 05/15/20 23:15 Last Infusion: 05/15/20 23:42 Dose: 0 mls/hr Documented by: [id number] Admin: 05/15/20 22:25 Dose: 999 mls/hr Documented by: [id number] Sodium Chloride (Nss 1000ml) 1,000 mls @ 125 mls/hr IV .Q8H YUE Stop: 06/15/20 02:58 Last Admin: 05/16/20 10:55 Dose: 125 mls/hr Documented by: [id number] Infusion: 05/16/20 10:55 Dose: 125 mls/hr Documented by: [id number] Admin: 05/16/20 03:28 Dose: 125 mls/hr Documented by: [id number] Magnesium Sulfate/Dextrose (Magnesium Sulfate / D5w) 1 gm in 100 mls @ 50 mls/hr IV ONE ONE Stop: 05/16/20 05:44 Last Infusion: 05/16/20 05:52 Dose: 0 mls/hr Documented by: [id number] Admin: 05/16/20 03:45 Dose: 50 mls/hr Documented by: [id number] Insulin Aspart (Insulin Aspart 100 Units/Ml 3 Ml Pen) 0 units SC Q6 YUE Stop: 06/15/20 03:44 Last Admin: 05/16/20 05:15 Dose: Not Given Documented by: [id number] Cosigned by: [id number] Admin: 05/16/20 03:56 Dose: Not Given Documented by: [id number] Cosigned by: [id number] Insulin Aspart (Insulin Aspart 100 Units/Ml 3 Ml Pen) 0 units SC Q6 YUE Stop: 06/15/20 08:14 Last Admin: 05/16/20 12:13 Dose: 3 units Documented by: [id number] Cosigned by: [id number] Admin: 05/16/20 08:29 Dose: 4 units Documented by: [id number] Cosigned by: [id number] Insulin Glargine (Insulin Glargine Solostar 100 Units/Ml 3 Ml Pen) 25 units SC ONE ONE Stop: 05/16/20 08:16 Last Admin: 05/16/20 08:28 Dose: 25 units Documented by: [id number] Cosigned by: [id number] Insulin Human Regular (Novolin-R Insulin Per Unit Charge) 10 units SC NOW STA Stop: 05/15/20 22:13 Last Admin: 05/15/20 22:26 Dose: 10 units Documented by: [id number] Cosigned by: [id number] Methadone HCl (Methadone Oral Soln 2 Mg/Ml) 33 mg PO DAILY YUE Stop: 05/30/20 08:59 Last Admin: 05/16/20 08:38 Dose: 33 mg Documented by: [id number] Metoclopramide HCl (Metoclopramide Hcl Inj 5 Mg/Ml 2 Ml Vial) 10 mg IV Q6H PRN PRN Reason: Nausea Stop: 06/15/20 02:58 Last Admin: 05/16/20 05:54 Dose: 10 mg Documented by: [id number] Non-Formulary Medication (Patient's Own Controlled Med) 1 ea PO DAILY YUE Stop: 05/30/20 08:59 Last Admin: 05/16/20 08:38 Dose: 33 mg Documented by: [id number] Ondansetron HCl (Ondansetron Inj 2 Mg/Ml 2 Ml Vial) 4 mg IV NOW STA Stop: 05/15/20 22:13 Last Admin: 05/15/20 22:25 Dose: 4 mg Documented by: [id number] Medical Decision Making Differential Diagnosis Differential diagnosis: Etiologies such as gastroenteritis, food borne illness, infections, appendicitis, diverticulitis, inflammatory bowel disease, obstruction, GI bleed, biliary pathology, cardiac process, intracranial process, as well as others were entertained. Laboratory Data Result diagrams: 05/16/20 07:57 11/20/20 07:57 Lab Results 05/15/20 05/15/20 05/15/20 Range/Units 20:09 20:11 20:11 WBC 14.84 H (4.8-10.8) K/uL RBC 4.72 (4.7-6.1) M/uL Hgb 14.1 (14.0-18.0) g/dL Hct 41.7 L (42-52) % MCV 88.3 (80-100) fL MCH 29.9 (25-34) pg MCHC 33.8 (32-36) g/dL RDW Std Deviation 40.9 (36.4-46.3) fL RDW Coeff of Carlos 12.7 (11.5-14.5) % Plt Count 271 (130-400) K/uL MPV 11.4 H (7.4-10.4) fL Immature Gran % (Auto) 0.3 % Neut % (Auto) 92.1 % Lymph % (Auto) 4.0 % Clayton % (Auto) 3.4 % Eos % (Auto) 0.0 % Baso % (Auto) 0.2 % Neut # (Auto) 13.68 H (1.4-6.5) K/uL Lymph # (Auto) 0.59 L (1.2-3.4) K/uL Clayton # (Auto) 0.50 (0.11-0.59) K/uL Eos # (Auto) 0.00 (0-0.5) K/uL Baso # (Auto) 0.03 (0-0.2) K/uL Immature Gran # (Auto) 0.04 H (0.00-0.02) K/uL VBG pH (7.36-7.41) VBG pCO2 (38-50) mmHg VBG pO2 mmHg VBG HCO3 mmol/L VBG O2 Saturation % VBG Base Excess mEq/L Barometric Pressure mm/Hg Sodium 135 L (136-145) mmol/L Potassium (3.5-5.1) mmol/L Chloride 99 (98-107) mmol/L Carbon Dioxide 26 (21-32) mmol/L Anion Gap 10.0 (3-11) BUN 15 (7-18) mg/dl Creatinine 1.19 (0.6-1.4) mg/dl Est Cr Clr Drug Dosing 95.7 ml/min Est GFR ( Amer) 98.5 Est GFR (Non-Af Amer) 85.0 BUN/Creatinine Ratio 12.5 (10-20) Glucose 281 H (70-99) mg/dl POC Glucose 289 H (70-99) mg/dl Calcium 10.3 H (8.5-10.1) mg/dl Magnesium (1.8-2.4) mg/dl Total Bilirubin 1.0 (0.2-1) mg/dl AST (15-37) U/L ALT 48 (12-78) U/L Alkaline Phosphatase 75 (45-117) U/L Total Protein 8.8 H (6.4-8.2) gm/dl Albumin 5.1 H (3.4-5.0) gm/dl Globulin 3.7 (2.5-4.0) gm/dl Albumin/Globulin Ratio 1.4 (0.9-2) Lipase 46 L (73-393) U/L SARS-CoV-2 Ag (Rapid) (Negative) 05/15/20 05/15/20 05/16/20 Range/Units 21:31 21:31 00:53 WBC (4.8-10.8) K/uL RBC (4.7-6.1) M/uL Hgb (14.0-18.0) g/dL Hct (42-52) % MCV (80-100) fL MCH (25-34) pg MCHC (32-36) g/dL RDW Std Deviation (36.4-46.3) fL RDW Coeff of Carlos (11.5-14.5) % Plt Count (130-400) K/uL MPV (7.4-10.4) fL Immature Gran % (Auto) % Neut % (Auto) % Lymph % (Auto) % Clayton % (Auto) % Eos % (Auto) % Baso % (Auto) % Neut # (Auto) (1.4-6.5) K/uL Lymph # (Auto) (1.2-3.4) K/uL Clayton # (Auto) (0.11-0.59) K/uL Eos # (Auto) (0-0.5) K/uL Baso # (Auto) (0-0.2) K/uL Immature Gran # (Auto) (0.00-0.02) K/uL VBG pH 7.32 L (7.36-7.41) VBG pCO2 50 (38-50) mmHg VBG pO2 22 mmHg VBG HCO3 25 mmol/L VBG O2 Saturation < 60.0 % VBG Base Excess -1.1 mEq/L Barometric Pressure 741.6 mm/Hg Sodium (136-145) mmol/L Potassium 4.3 (3.5-5.1) mmol/L Chloride (98-107) mmol/L Carbon Dioxide (21-32) mmol/L Anion Gap (3-11) BUN (7-18) mg/dl Creatinine (0.6-1.4) mg/dl Est Cr Clr Drug Dosing ml/min Est GFR ( Amer) Est GFR (Non-Af Amer) BUN/Creatinine Ratio (10-20) Glucose (70-99) mg/dl POC Glucose 106 H (70-99) mg/dl Calcium (8.5-10.1) mg/dl Magnesium 1.5 L (1.8-2.4) mg/dl Total Bilirubin (0.2-1) mg/dl AST 24 (15-37) U/L ALT (12-78) U/L Alkaline Phosphatase (45-117) U/L Total Protein (6.4-8.2) gm/dl Albumin (3.4-5.0) gm/dl Globulin (2.5-4.0) gm/dl Albumin/Globulin Ratio (0.9-2) Lipase (73-393) U/L SARS-CoV-2 Ag (Rapid) (Negative) 05/16/20 Range/Units 01:23 WBC (4.8-10.8) K/uL RBC (4.7-6.1) M/uL Hgb (14.0-18.0) g/dL Hct (42-52) % MCV (80-100) fL MCH (25-34) pg MCHC (32-36) g/dL RDW Std Deviation (36.4-46.3) fL RDW Coeff of Carlos (11.5-14.5) % Plt Count (130-400) K/uL MPV (7.4-10.4) fL Immature Gran % (Auto) % Neut % (Auto) % Lymph % (Auto) % Clayton % (Auto) % Eos % (Auto) % Baso % (Auto) % Neut # (Auto) (1.4-6.5) K/uL Lymph # (Auto) (1.2-3.4) K/uL Clayton # (Auto) (0.11-0.59) K/uL Eos # (Auto) (0-0.5) K/uL Baso # (Auto) (0-0.2) K/uL Immature Gran # (Auto) (0.00-0.02) K/uL VBG pH (7.36-7.41) VBG pCO2 (38-50) mmHg VBG pO2 mmHg VBG HCO3 mmol/L VBG O2 Saturation % VBG Base Excess mEq/L Barometric Pressure mm/Hg Sodium (136-145) mmol/L Potassium (3.5-5.1) mmol/L Chloride (98-107) mmol/L Carbon Dioxide (21-32) mmol/L Anion Gap (3-11) BUN (7-18) mg/dl Creatinine (0.6-1.4) mg/dl Est Cr Clr Drug Dosing ml/min Est GFR ( Amer) Est GFR (Non-Af Amer) BUN/Creatinine Ratio (10-20) Glucose (70-99) mg/dl POC Glucose (70-99) mg/dl Calcium (8.5-10.1) mg/dl Magnesium (1.8-2.4) mg/dl Total Bilirubin (0.2-1) mg/dl AST (15-37) U/L ALT (12-78) U/L Alkaline Phosphatase (45-117) U/L Total Protein (6.4-8.2) gm/dl Albumin (3.4-5.0) gm/dl Globulin (2.5-4.0) gm/dl Albumin/Globulin Ratio (0.9-2) Lipase (73-393) U/L SARS-CoV-2 Ag (Rapid) Negative (Negative) MDM Narrative Physical exam and history were performed. Nursing notes, EMR, and Medication List were personally reviewed. Patient appears to have nausea and vomiting symptoms bring him to the ER. The patient has a history of diabetes and episodic intractable nausea and vomiting. He does smoke marijuana and is on methadone. IV access was established and labs were obtained. The patient was hydrated with 2 L normal saline. He was given IV Benadryl and IV Compazine for comfort. An order was placed for continuous cardiac monitoring. The monitor shows a rate of 89 with normal sinus rhythm. The patient blood work is as above and was reviewed. He is with a slightly elevated white blood cell count of 14, likely from the vomiting. He does not have a significant anemia or gross electrolyte imbalance. Sugar is elevated at 281 and he is slightly acidotic on VBG. Lipase and transaminases are not diagnostic. Urine is with ketones and glucose. Drug abuse screen is positive for methadone and marijuana. On reevaluation the patient continues to complain of persistent symptoms. I did give him IV Zofran and discussed options of care with the patient. The patient states that he does not feel well for discharge, and is essentially requesting to stay in the ER for several more hours. Patient is being evaluated during the COVID-19 global pandemic, and hospital beds are at a premium. The patient was given additional fluids as well as additional insulin above his basal insulin pump rate. The hope at this time is to optimize the patient and prevent admission, although he has required admission multiple times in the past. The patient remained in stable condition until the time of shift change. I did discuss the case with my colleague, Ja Mcgarry PA-C, who will assume care at this time. The patient will need reevaluated for possible discharge versus admission after he receives more antiemetics and fluids. Please see Mr. Mcgarry's dictation for further patient course, plan, and discharge. The chart was completed utilizing [employer] Speech Voice Recognition Software. Grammatical errors, random word insertions, pronoun errors, and incomplete sentences are an occasional consequence of this system due to software limitations, ambient noise, and hardware issues. Any formal questions or concerns about the content, text, or information contained within the body of this dictation should be directly addressed to the provider for clarification. . Impression & Plan Intractable vomiting with nausea, Marijuana use, Diabetes mellitus type 1 with complications, History of opioid abuse Discharge Plan Visit Data Chief Complaint: Vomiting Stated Complaint: NAUSEA, VOMITING ED Provider: Eddie Dumont ED Midlevel Provider: Ja Mcgarry Discharge Problem: Intractable vomiting with nausea, Marijuana use, Diabetes mellitus type 1 with complications, History of opioid abuse Patient Disposition: Admitted As Inpatient Discharge Instructions Interventions: ED Discharge Assessment Last Done: 05/16/20 02:43
--- NOTE | 2020-05-16 02:22 | History & Physical Report ---
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 Nausea/Vomitting -Pt states it started 9AM the previous day, not relieved by compazine and zofran -Repeated admissions for the same -ED course: Benadryl 50mg, Compazine 2ml, Zofran 4mg, NSS fluid boluses, 10U regular insulin -PRN Phenergan and Reglan ordered for N/V, worked for him in the past -NPO, advance diet as tolerated (DMI diet) -NSS@125mls/hr -EKG showed qtc of 472, daily EKGs for continued monitoring given meds above DMI -not in DKA currently -continue use of home insulin pump Gastroparesis -follows with Dr. Gisselle Munguia of [place], saw her last 4 months ago -states he takes domperidone for treatment, non formulary -consider use of pt's home meds -continue reglan and phenergan as above for N/V Hx of opioid abuse -continue methadone 33mg daily Hx of marijuana use -possibly contributory -consider cessation counseling FEN/GI: NPO, advance diet as tolerated as N/V subsides DVT prophylaxis: Ambulation as tolerated CODE STATUS: Full code Dispo: Med/Surg with tele (2) Gastroparesis: (3) Acute dehydration: (4) Marijuana use: (5) History of opioid abuse: (6) Type I diabetes mellitus: History of Present Illness Primary Care Provider: Oneil Tinajero MD Pt is a 25yo with a Hx of DMI, gastroparesis, 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 Pt was laying in bed, and not very conversant. States he was having nausea and vomitting from 9AM the previous day, not relieved by his home Zofran and compazine. States he has a Hx of gastroparesis, follows with GI in [place] and takes Domperidone at home. Does not smoke cigarettes, no alcohol use but smokes marijuana. Allergies Allergy/AdvReac Type Severity Reaction Status Date / Time Cephalosporins Allergy Intermediate Hives Verified 05/15/20 20:42 Sulfa (Sulfonamide Allergy Intermediate Hives Verified 05/15/20 20:42 Antibiotics) azithromycin [From Zithromax] AdvReac Intermediate Hives Verified 05/15/20 20:42 Home Medications Medication Instructions Recorded Confirmed Type glucagon 3 mg INTNAS ONCE PRN 01/26/20 05/15/20 History diphenhydramine HCl [Benadryl] 25 mg PO HS PRN 05/15/20 05/15/20 History insulin lispro [Humalog U-100 1 sliding scale dose SUBCUT 05/15/20 05/15/20 History Insulin] USEASDIRECTD melatonin 5 mg PO HS 05/15/20 05/15/20 History methadone 33 mg PO DAILY 05/15/20 05/15/20 History Past Med/Surg History Medical History Anemia Diabetes Hepatitis History of opioid abuse Pneumomediastinum Soft tissue abscess Surgical History No pertinent past surgical history Family History Other Cancer Diabetes Heart disease Hypertension Social History Smoking Status: Never smoker Cigarettes Per Day: 10 cigarettes per day; Second Hand Exposure: No; Hx Alcohol Use: No Hx Substance Use: Yes Prescribed Medications: Marijuana Last Used Substance: Unknown Last Used Substance Other:: Last use of MJ was 2 weeks ago Substance Use Type Other:: Pt states he does not use substances, but informed ED he uses marijuana Preferred Language: Polish Communication Ability: Effective [facility] Partner Required: No Beliefs That Will Affect Care: None marital status: Single Current Living Situation: Parent Other Information That Helps Us Care for You: No Feels Safe at Home: Yes Safety Concerns: Feels Safe At This Time Assistive Devices: None Review of Systems Constitutional: no fever, no chills and no sweats Eyes: no worsening vision Ear, Nose, Mouth, Throat: no nasal congestion and no sore throat Respiratory: no cough and no dyspnea Cardiovascular: no chest pain, no palpitations and no edema Gastrointestinal: + nausea and + vomiting; no abdominal pain, no constipation, no diarrhea/loose stools and no blood in stools Genitourinary: no dysuria and no hematuria Integumentary: no rash Neurologic: no headache(s) and no confusion Psychiatric: no confusion Physical Exam Physical Exam: General: Alert, oriented. No acute distress, laying in bed. Skin: No noted rashes or bruises Psych: Appropriate mood and affect Neuro: No gross deficits HEENT: NC/AT Chest: Nontender to palpation. CV: RRR, Normal s1, s2. No murmurs appreciated Resp: Breath sounds clear bilaterally, no increased effort of breathing. Abdomen: Soft, nontender, nondistended. No guarding. Extremities: No edema in lower extremities bilaterally. Results & Data Results & Data ([facility]) Vital Signs (Past 12 Hours) Vital Signs Temp Pulse Pulse Resp BP BP Pulse Ox 05/16/20 01:00 101 H 18 95/55 L 97 05/15/20 23:00 99 H 18 126/65 98 05/15/20 21:43 104 H 18 109/62 98 05/15/20 20:04 96 05/15/20 19:53 37.1 C 124 H 19 106/65 99 Supervising Physician Co-Signing Physician Notes Patient seen and examined, chart reviewed, case discussed with Dr. Bustos and I agree with her assessment and plan as documented above. Briefly, patient is a 25yo C male with history of Type I DM with insulin pump in place presenting with nausea - patient feels is secondary to gastroparesis. On exam he is afebrile, HD stable, NAD, resting comfortably HEENT - NC/AT, slightly dry mucus membranes Heart - +S1/S2, regular Lungs - CTA Abd - +BS, soft, NT/ND Ext - No edema Labs and images reviewed. No anion gap. BS improved after insulin Assessment/Plan - 25yo C male with nausea, ?gastroparesis -Anti-emetics and promotility agents as above -Monitor blood sugar -IVF -Remainder of plan as above Resident Activity Tracking Resident Involvement: Resident Care Provided Care Provided: Adult Hospital Medicine (1) Vomiting Nausea presence: with nausea Vomiting Intractability: intractable Vomiting type: unspecified Qualified Code(s): R11.2 - Nausea with vomiting, unspecified
--- NOTE | 2020-05-16 02:27 | Billing Data ---
Date of Service May 16, 2020 Coding Level of Care Code 37788 Initial Inpt Care Lvl 2
[2020-05-16] MEDS ORDERED: PROMETHAZINE HCL 12.5 MG in SODIUM CHLORIDE 0.9% 50 ML IV PRN (02:59)
[2020-05-16] MEDS ORDERED: METOCLOPRAMIDE HCL INJ 5 MG/ML 2 ML VIAL IV PRN (02:59)
[2020-05-16] MEDS ORDERED: diphenhydrAMINE Capsule 25 MG CAP PO PRN (02:59)
[2020-05-16] MEDS ORDERED: PHARMACY GLYCEMIC MGMT CONSULT PRN (03:13)
[2020-05-16] MEDS: SODIUM CHLORIDE 0.9% 1000ML 1,000 ML IV SCH ×2 (03:28→10:55)
[2020-05-16] MEDS ORDERED: GLUCOSE 40% GEL 15 GM TUBE PO PRN ×2 (03:30→04:18)
[2020-05-16] MEDS ORDERED: GLUCAGON FOR INJ 1 MG VIAL SQ PRN ×2 (03:30→04:18)
[2020-05-16] MEDS ORDERED: DEXTROSE 50% 50 ML SYRINGE IV PRN ×2 (03:30→04:18)
[2020-05-16] MEDS ORDERED: CARBOHYDRATES FOR HYPOGLYCEMIA PO PRN ×2 (03:30→04:18)
[2020-05-16] MEDS ORDERED: GLUCOSE 10 TABS/TUBE PO PRN ×2 (03:30→04:18)
[2020-05-16] MEDS ORDERED: MAGNESIUM SULFATE / D5W 1 GM/100 ML BAG IV ONE (03:45)
[2020-05-16] MEDS ORDERED: INSULIN GLARGINE SOLOSTAR 100 UNITS/ML 3 ML PEN SC ONE ×2 (03:45→08:15)
[2020-05-16] MEDS: INSULIN ASPART 100 UNITS/ML 3 ML PEN SC SCH ×4 (03:56→12:13)
[2020-05-16 06:27] LABS: Appearance Urine Clear (Clear); Bilirubin Urine Negative (Negative); Blood Urine Negative (Negative); Color Urine Yellow; Glucose Urine UA Trace (Negative); Ketones Urine 3+ (Negative); Leukocyte Esterase Urine Negative (Negative); Nitrite Urine Negative (Negative); Protein Urine Negative (Negative); Specific Gravity Urine 1.021 (1.000-1.030); Urobilinogen Urine Negative (Negative); pH Urine 5.5 (4.5-7.5)
[2020-05-16 06:47] LABS: Amphetamines+Metham, Urine Neg (Neg); Barbiturates, Urine Neg (Neg); Benzodiazepine, Urine Neg (Neg); Cocaine, Urine Neg (Neg); MDMA (Ecstacy), Urine Neg (Neg); Methadone, Urine Pos (Neg); Opiate, Urine Neg (Neg); Phencyclidine, Urine Neg (Neg)
--- NOTE | 2020-05-16 06:52 | XRay Report ---
KUB HISTORY: Acute nausea with vomiting nausea and vomiting COMPARISON: Acute abdominal series radiographs 03/19/2020 FINDINGS: The bowel gas pattern is non-obstructive. There is no organomegaly. Pelvic basin calcifica tions suggest phleboliths. No renal or ureteral calculi identified. No pneumoperitoneum or pneumatosi s. No fracture. IMPRESSION: Nonobstructive bowel gas pattern. ACT 112: Negative or not required by law. The above report was generated using voice recognition software. It may contain grammatical, syntax o r spelling errors. Electronically signed by: Zack Sorto M.D. 05/16/2020 6:51 AM
[2020-05-16 08:34] LABS: Basophils # (auto) 0.01 K/uL (0-0.2); Basophils % (auto) 0.1 %; Eosinophils # (auto) 0.01 K/uL (0-0.5); Eosinophils % (auto) 0.1 %; Hematocrit (blood only) 33.5 % (42-52); Hemoglobin 11.1 g/dL (14.0-18.0); Immature Granulocytes # (auto) 0.01 K/uL (0.00-0.02); Immature Granulocytes % (auto) 0.1 %; Lymphocytes # (auto) 1.66 K/uL (1.2-3.4); Mean Corpuscular Hemoglobin 29.6 pg (25-34); Mean Corpuscular Hgb Conc 33.1 g/dL (32-36); Mean Corpuscular Volume 89.3 fL (80-100); Mean Platelet Volume 10.9 fL (7.4-10.4); Monocytes # (auto) 0.62 K/uL (0.11-0.59); Monocytes % (auto) 7.8 %; Neutrophils % (auto) 70.9 %; Platelet Count 188 K/uL (130-400); RDW Coefficient of Variation 12.9 % (11.5-14.5); Red Blood Count 3.75 M/uL (4.7-6.1); White Blood Count 7.91 K/uL (4.8-10.8)
[2020-05-16 08:56] LABS: BUN Creatinine Ratio 12.8 (10-20); Calcium 8.7 mg/dl (8.5-10.1); Creatinine Clr Calc Pharmacy 131.8 ml/min; Est GFR (African American) 138.1; Est GFR (Non-African American) 119.1
[2020-05-16] MEDS ORDERED: METHADONE ORAL SOLN 2 MG/ML PO SCH (09:00)
[2020-05-16] MEDS ORDERED: PATIENT'S OWN CONTROLLED MED PO SCH (09:00)
--- NOTE | 2020-05-16 09:13 | Emergency Department Note ---
ED Visit Note Patient case was signed out to me on 05/15/2020 by Rui Hendrix PA-C. This is pending reevaluation of the patient's nausea and vomiting. Patient has received multiple antiemetics here. Please refer to LORENA Hendrix note in regard to first portion of his visit. Patient was reevaluated several times and a p.o. fluid trial was initiated with water. Patient noted persistence of symptoms and it was felt that at that point inpatient management was warranted. Case discussed with hospitalist. Please refer to further documentation regarding his stay. .
--- NOTE | 2020-05-16 10:11 | Electrocardiogram Report ---
Test Reason : Blood Pressure : / mmHG Vent. Rate : 094 BPM Atrial Rate : 094 BPM P-R Int : 152 ms QRS Dur : 108 ms QT Int : 378 ms P-R-T Axes : 071 075 076 degrees QTc Int : 472 ms Normal sinus rhythm Incomplete right bundle branch block Borderline ECG When compared with ECG of 19-MAR-2020 13:21, Vent. rate has increased BY 31 BPM Confirmed by Lex Eason ([id number]) on 05/16/2020 10:11:06 AM Referred By: REFERRED SELF Confirmed By:Lex Eason
--- NOTE | 2020-05-16 10:34 | Medical Student Progress Note ---
Date of Service May 16, 2020 Assessment & Plan (1) Gastroparesis: Pt denies any abdominal pain or bloating. Pt had a KUB that showed no evidence of obstruction. Pt still has nausea today but has not vomited. Pt denies constipation or diarrhea and passed a stool yesterday (05/15/20) prior to coming to the hospital. Pt has tolerated broth Due to no obstruction on KUB and improvement of N/V, pt has agreed to continue with broth for lunch and try to transition to solid food for dinner. If pt doesn't have reoccurence of vomiting or worsening of symptoms with solid food, discharge will be considered. Present on Admission?: Yes (2) Intractable vomiting with nausea: Pt has not vomited today but still admits to some nausea. Nausea has improved from yesterday. Pt has been consuming broth but has agreed to try solid food for dinner. See plan above. Present on Admission?: Yes (3) Type I diabetes mellitus: Pt arrived to the ED with a glucose of 281. Today glucose is 256 with insulin being managed by short acting Aspart and long acting Glargine. Pt has insulin pump that is currently turned off. Continue to monitor blood glucose levels and transition to insulin pump prior to discharge. Present on Admission?: Yes (4) History of opioid abuse: Pt has a history of heroin abuse years ago with an unknown end date. Pt has been receiving methadone by [facility]. Pt transitioned from 35 mg of methadone to 33 mg of methadone roughly three weeks ago. Pt denies any associated symptoms with drop in methadone dose. Pt continues to desire to decrease methadone dose until he no longer requires it. Pt will continue 33 mg of methadone with the understanding that management will be overseen by the [facility]. Present on Admission?: Yes Admission and Anticipated Discharge Date Admission Date: May 16, 2020 DVT Prophylaxis: None Code status: Full Code FEN: NaCl 0.9% 1000 mL IV 125 mls/hr, Low Mg: MgSO4/D5W 1 gm in 100 mL IV one 50 mls/hr, transition to solid foods as tolerated Subjective Pt is a 25 yo with a history of gastroparesis, history of heroin abuse on methadone, chronic marijuana use, and type 1 DM that presents with intractable nausea and vomiting. Pt started having nausea and vomiting from 9 AM the previous day that did not improve after taking Zofran or domperidone. Pt went to the ER where pt was placed on benadripe, compazine, zofran, NSS fluid boluses, 10U regular insulin. PRN phenergen and Reglan was ordered. Pt was NPO status with NSS at 125 ml/hr. An EKG was unremarkable. KUB showed nonobstructive bowel gas pattern. Last night pt was given insulin without the knowledge that he still had his home insulin pump on and his blood sugar dropped into the 40s. Blood sugar today is 256 after receiving Dextrose 50% 25-50 mL IV and Glucagon 1 mg SQ. Today (05/16/20), the pt states that he still has nausea but has not vomited since yesterday. Pt believes that it was a flare up of gastroparesis as he has had similar symptoms like this before. Pt states Reglan and phenergen have helped in the past. Pt denies any change in diet or changes in methadone. Pt decreased methadone from 35 mg to 33 mg roughly three weeks ago but this did not result in nausea and vomiting. Pt sees a specialist in [place] for gastroparesis. Pt has a home insulin pump for his DMI. Pt agrees to turning off the pump to allow Nursing to manage his insulin. Review of Systems Constitutional: no fever and no chills Respiratory: no dyspnea Cardiovascular: no chest pain and no palpitations Gastrointestinal: no abdominal pain, no constipation and no diarrhea/loose stools Feels nauseous right now. Has not vomited today (05/16/20). Vomited yesterday (05/15/20). Genitourinary: no dysuria Neurologic: no tingling and no paresthesia Physical Exam Eyes: PERRL, conjunctivae normal, anicteric sclerae Respiratory: normal respiratory effort, lungs clear to auscultation Cardiovascular: RRR, no murmur, no edema Vessels: no cranial bruit Extremities: no pedal edema Gastrointestinal (Abdomen): normal bowel sounds, soft, nontender, no hepatosplenomegaly Negative Lima's sign Neurologic: patellar DTR's 2+ bilat, sensation intact Results & Data ([facility]) Vital Signs (Past 12 Hours) Vital Signs Temp Pulse Pulse Resp BP BP Pulse Ox 05/16/20 08:00 36.7 C 84 18 120/72 99 05/16/20 07:00 82 05/16/20 03:18 85 05/16/20 03:00 36.9 C 94 H 16 133/75 96 05/16/20 01:00 101 H 18 95/55 L 97 05/15/20 23:00 99 H 18 126/65 98
--- NOTE | 2020-05-16 11:19 | Pharmacy Report ---
Glycemic Control Consultation - Date of Service May 16, 2020 - Scope Scope: Glycemic Pharmacist consulted for glycemic control and to write orders per [facility] inpatient glycemic control protocol. - Objective Weight: 73.6 kg Accuchecks BSG (last 24hrs): 05/15/20 05/15/20 05/16/20 20:09 20:11 00:53 Glucose 281 H POC Glucose 289 H 106 H 05/16/20 05/16/20 05/16/20 03:49 04:01 04:17 Glucose POC Glucose 50 L* 49 L* 49 L* 05/16/20 05/16/20 05/16/20 04:45 05:03 07:57 Glucose 256 H POC Glucose 59 L* 91 05/16/20 07:58 Glucose POC Glucose 244 H Laboratory Data (last 24hrs): 05/15/20 05/15/20 05/16/20 20:11 21:31 07:57 Potassium 4.3 4.0 Carbon Dioxide 26 25 Anion Gap 10.0 6.0 Creatinine 1.19 0.90 Est Cr Clr Drug Dosing 95.7 131.8 - Recent Pertinent Medications Outpatient Anti-diabetic Regimen: dosing pulled from last admission - 03/21/20 Insulin Pump Basal: 9402-0674 0.9 unit/hr 0465-7728 1.2 units/hr Total: 26.1 units Carb Ratio: 1:7.7 (1770-4106) 1:9.5 (8249-3988) 1:9 (5354-4511) Sensitivity Factor: 36 with BG target of 90-140 TDD: ~22-23 units (95% basal; 5% bolus) * A1c = 7.1 % 02/05/20 Risk Factors for Insulin Resistance: * Diet: npo - Assessment & Plan Assessment & Plan: ASSESSMENT: * 25 year old with hx of gastroparesis, type 1 DM presenting with intractable nausea/vomiting. Last evening patient was given 10 units of insulin d/t elevated BSGs without the knowledge his insulin pump was on. BSGs dropping overnight into 40s, treated per hypoglycemia protocol. * Insulin pump taken off ~0400 this AM. BSGs trending up and on recheck 244 mg/dL - plan to give basal insulin since T1DM. His last admission 03/20/20 he had come in with similar issues and required 25 units of basal daily with CF/CR of 30/10. Plan to utilize same parameters * Per discussion with RN, when she went to check on him this AM he had restarted his insulin pump. She had him disconnect immediately. She states that he thought he was suppose to place back on. She confirmed it is disconnected and told patient that we are managing insulin SQ right now. Nurse states pump may have been on 10-15 minutes at most. PLAN FOR INPATIENT GLYCEMIC CONTROL: * Holding outpatient oral diabetes medications * Basal insulin * Lantus 25 units daily * Bolus insulin * NovoLog per scale ACHS or Q6hrs while NPO * Goal Range: Low 120 mg/dL - High 150 mg/dL * Correction Factor: 30 mg/dL/unit * Nutritional / Prandial insulin per carb ratio of 1 unit per 10 grams CHO consumed * Please note that the plan above was derived based on current level of insulin resistance and hospital stress. These recommendations are appropriate for inpatient admission only. Plan of care upon discharge will need to be reassessed to avoid potential outpatient hypo/hyperglycemia. Thank you.
--- NOTE | 2020-05-16 12:57 | Electrocardiogram Report ---
Test Reason : Blood Pressure : / mmHG Vent. Rate : 068 BPM Atrial Rate : 068 BPM P-R Int : 162 ms QRS Dur : 098 ms QT Int : 426 ms P-R-T Axes : 078 084 079 degrees QTc Int : 452 ms Normal sinus rhythm Normal ECG When compared with ECG of 16-MAY-2020 00:56, No significant change was found Confirmed by Lex Eason ([id number]) on 05/16/2020 12:57:22 PM Referred By: REFERRED SELF Confirmed By:Lex Eason
--- NOTE | 2020-05-16 15:25 | Discharge Summary ---
Date of Service May 16, 2020 Admission HPI Per Admitting Provider Pt is a 25yo with a Hx of DMI, gastroparesis, 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 Pt was laying in bed, and not very conversant. States he was having nausea and vomitting from 9AM the previous day, not relieved by his home Zofran and compazine. States he has a Hx of gastroparesis, follows with GI in [place] and takes Domperidone at home. Does not smoke cigarettes, no alcohol use but smokes marijuana. Admission Exam Per Admitting Provider General: Alert, oriented. No acute distress, laying in bed. Skin: No noted rashes or bruises Psych: Appropriate mood and affect Neuro: No gross deficits HEENT: NC/AT Chest: Nontender to palpation. CV: RRR, Normal s1, s2. No murmurs appreciated Resp: Breath sounds clear bilaterally, no increased effort of breathing. Abdomen: Soft, nontender, nondistended. No guarding. Extremities: No edema in lower extremities bilaterally. Principal Diagnosis Intractable Nausea and Vomiting secondary to Gastroparesis Discharge Exam Constitutional WD/WN, vitals as above Eyes PERRL, conjunctivae normal, anicteric sclerae ENMT external ear and nose normal, oropharynx normal Neck trachea midline, no thyromegaly Respiratory normal respiratory effort, lungs clear to auscultation Cardiovascular RRR, no murmur, no edema Gastrointestinal (Abdomen) normal bowel sounds, soft, nontender, no hepatosplenomegaly Musculoskeletal no cyanosis or clubbing, extremities motor strength 5/5 Skin no rashes, warm and dry Neurologic PERRL, EOMI, accommodation nl, no face palsy, no dysarthria Psychiatric A+Ox3, euthymic affect Discharge Data Allergies Allergy/AdvReac Type Severity Reaction Status Date / Time Cephalosporins Allergy Intermediate Hives Verified 05/15/20 20:42 Sulfa (Sulfonamide Allergy Intermediate Hives Verified 05/15/20 20:42 Antibiotics) azithromycin [From Zithromax] AdvReac Intermediate Hives Verified 05/15/20 20:42 Consultations 05/16/20 00:29 ED Decision to Admit Stat Hospital Course (1) Intractable vomiting with nausea: Patient is a 25 year old male with PMHx DM1, Gastroparesis, Marijuana and Opioid use, who presented with initial concerns of intractable nausea and vomiting. Intractable Nausea and Vomiting, secondary to Gastroparesis -Patient with multiple admissions in past for similar symptoms -ED Course: Benadryl 50mg, Compazine 2mg, Zofran 4mg, NSS fluid boluses, 10u regular insulin -Continued IVF while inpatient. -PRN Phenergan and Reglan which improved patients N/V -Diet was advanced as tolerated and patient was tolerating full liquids prior to discharge DMI -Patient without presentation of DKA on admission -Had hypoglycemic event due to concurrent use of insulin pump and administration of regular insulin in ED that was corrected with oral Powerade -Discontinued use of pump while inpatient - resumed on discharge. Hx Opioid use ds -Continued home methadone 33mg QD Hx Marijuana use -Patient noting that he smoked roughly once every 2 weeks -No concern of CVS. (2) Gastroparesis: (3) Marijuana use: (4) Type I diabetes mellitus: (5) History of opioid abuse: Total Time Total Time Spent Total Time Spent (In Minutes): see attending attestation Discharge Plan Discharge Items Patient Disposition: Home - Self-Care Reason For Visit: INTRACTABLE NAUSEA / VOMITING Discharge Diagnosis: Diabetic Gastroparesis w/ Nausea and Vomiting Activity: Per Instructions section Non-emergency contact: Primary Care Provider Call non-emergency contact if: you have any medication questions and your symptoms worsen Follow-up/Referrals: Oneil Tinajero MD [Primary Care Provider] - 05/20/20 9:50 am (Your appointment is with the nurse practitioner, Candy Alberts. If you need to change this appointment, please call [phone].) Diet: Carb Count or DM1 Addtl Attending Provider Instructions: Mr. Tijerina, It was our pleasure caring for you at [facility] [address] from 05/15- 05/16/20 for your intractable nausea and vomiting. While admitted, you were treated with IV fluids to keep you hydrated and given medications including Reglan and Phenergan which helped to improve your nausea. We were able to advance your diet and you were able to eat appropriately without nausea. We discussed working on identifying possible triggers that may lead to your nausea. After tolerating a regular meal, you were determined to be stable for discharge. If your symptoms worsen or return, please return to the ED for evaluation. Please follow up with your Primary Care Physician within the next 1-2 weeks for follow up after a hospital stay. Pending Studies at Discharge: No Stand-Alone Forms: [facility] [employer], Smoking Cessation Medications and DC Order Prescriptions: Continued diphenhydramine HCl [Benadryl] 25 mg Capsule 25 mg PO HS PRN (Reason: Sleep) RF: 0 methadone 10 mg/mL Concentrate 33 mg PO DAILY RF: 0 insulin lispro [Humalog U-100 Insulin] 100 unit/mL Solution 1 sliding scale dose SUBCUT USEASDIRECTD RF: 0 melatonin 5 mg Tablet 5 mg PO HS RF: 0 glucagon 3 mg/actuation spray,non-aerosol 3 mg INTNAS ONCE PRN (Reason: Hypoglycemia) RF: 0 Discharge Orders: Discharge Order (Routine); Ordered 05/16/20 Ordered By: Eddie Cerda Admission Data Admit Date/Time: 05/16/20 02:00 Attending Provider: Callie Vásquez Admit Provider: Riana Bustos Primary Care Provider: Oneil Tinajero Other Providers: Gisselle Navarro Other Interventions: Discharge Summary Assessment (RN) Last Done: 05/16/20 15:20 Supervising Physician Co-Signing Physician Notes Resident Physician Supervision Note: I independently interviewed and examined the patient and verified the gonzales history and physical, reviewed labs and image studies, discussed the case with the resident Dr. Cerda and agree with the findings and care plan. Resident Activity Tracking Resident Involvement: Resident Care Provided Care Provided: Adult Hospital Medicine
[2020-05-16] MEDS ORDERED: INSULIN ASPART 100 UNITS/ML 3 ML PEN SC SCH (16:30)
[2020-05-16 16:52] VITALS: BP 101/65; PULSE 89; TEMP 98.4; O2SAT 99
[2020-05-16] MEDS ORDERED: MELATONIN 3 MG TAB PO SCH (21:00)
[2020-05-17] MEDS ORDERED: INSULIN GLARGINE SOLOSTAR 100 UNITS/ML 3 ML PEN SC SCH (09:00)
[2020-05-18 18:16] LABS: Marijuana Quant, GCMS Urine 4500 ng/mL (<5); Methadone, Ur Metabolite 4850 ng/mL (<100)
== END 2020-05-16 17:00 | disposition home or self-care (01) ==
LOC: ED 19:49 → 2N 19:49 → SUATTDRO 05-16 02:49
DX: Z88.2 Allergy status to sulfonamides; Z79.4 Long term (current) use of insulin; Z88.1 Allergy status to other antibiotic agents; E10.43 Type 1 diabetes mellitus with diabetic autonomic (poly)neuropathy; Z88.8 Allergy status to other drugs, medicaments and biological substances; F17.210 Nicotine dependence, cigarettes, uncomplicated; Z79.891 Long term (current) use of opiate analgesic; F12.90 Cannabis use, unspecified, uncomplicated; Z79.899 Other long term (current) drug therapy

== ENCOUNTER 2020-07-27 17:30 | Observation (INO) ==
[2020-07-27] MEDS ORDERED: METOCLOPRAMIDE HCL INJ 5 MG/ML 2 ML VIAL IV STA (17:43)
[2020-07-27] MEDS ORDERED: PROMETHAZINE 25 MG/51 ML BAG IV STA (17:43)
[2020-07-27] MEDS ORDERED: diphenhydrAMINE 50 MG/ML VIAL IV STA ×2 (17:43→20:50)
[2020-07-27] MEDS ORDERED: SODIUM CHLORIDE 0.9% 1000ML 1,000 ML IV SCH (17:45)
--- NOTE | 2020-07-27 17:48 | Emergency Department Note ---
Impression & Plan Vomiting, Gastroparesis, Acute dehydration ED Provider Note NAME: ANISH SINGH AGE: 25 SEX: M : 1995 ARRIVES VIA: Walk-In INFORMANT: [Patient] ED PROVIDER(S): [Scott Herrmann MD] CHIEF COMPLAINT: Vomiting HISTORY OF PRESENT ILLNESS: The patient is a 25-year-old male who woke up this morning with nausea. He has been vomiting all day. He has no pain. He cannot keep anything down, he feels thirsty. There has been some loose stool but this is baseline for him. The patient is diabetic and has gastroparesis. He has not checked his sugar today. Patient states that he has been here before with similar complaints. He does not want any x-rays but has agreed to laboratory work, IV fluids and some medications. There has been no fever, no chills, no cough or cold or congestion. He has not had any food he thinks might have been a problem, no sick contacts. REVIEW OF SYSTEMS: See HPI for pertinent positives and negatives. A total of ten systems were reviewed and were otherwise negative. PMHx/PSHx: See Below SOCIAL HISTORY: See Below. PHYSICAL EXAM: GENERAL: Patient is in no acute distress. HEENT: No acute trauma, normocephalic atraumatic, mucous membranes dry, no nasal congestion, no scleral icterus. NECK: No stridor, no adenopathy, no meningismus, trachea is midline. LUNGS: Clear to auscultation bilaterally, no wheeze, no rhonchi, breath sounds equal. HEART: Without murmurs gallops or rubs, regular rate and rhythm. ABDOMEN: Soft, nontender, bowel sounds positive, no hernias, no peritonitis. EXTREMITIES: No cyanosis or edema, full range of motion of all the joints without pain or difficulty, no signs for acute trauma. NEUROLOGIC: Oriented x 3, no acute motor or sensory deficits, no focal weakness. SKIN: No rash, no jaundice, no diaphoresis. Pale. DIFFERENTIAL DIAGNOSIS: Infection, dehydration, metabolic abnormality, hypo/hyperglycemia, electrolyte disturbance, anemia, viral or foodborne illness, marijuana abuse, bowel obstruction, ileus, hypoxia, cardiac sources, intracerebral event, toxicologic issues, stroke, TIA, as well as other pathologies. EMERGENCY DEPARTMENT COURSE/PROCEDURES: ECG: Indication was vomiting. The ECG shows a normal sinus rhythm with some sinus arrhythmia. The rate is 76. There is some baseline artifact. There is an incomplete right bundle branch block. There is a QTC of 445. There is no ST elevation, no PVCs. Continuous Cardiac Monitoring: An order was placed for continuous cardiac monitoring. The monitor shows a rate of 83 with normal sinus rhythm. MEDICAL DECISION MAKING: There is a mild leukocytosis, likely consistent with his vomiting. There is a normal hemoglobin and platelet count. No significant electrolyte abnormality or kidney failure. Glucose was reasonable in the mid 200s. No worrisome liver enzyme elevation. The patient appeared to be in a euthyroid state. ECG showed a sinus rhythm, no acute ischemia. On exam, the patient appeared somewhat dehydrated and pale, there was no abdominal pain. He was not febrile, he was not toxic. Patient received IV Benadryl, IV Reglan, IV Phenergan and IV saline-1 L. He was given a liter of lactated Ringer's as well. The patient's color has improved, he feels better. He is now eating crackers and tolerating some sips. I am going to discharge the patient with a few Reglan to use as needed. I gave him a prescription for Reglan as well. Patient can continue with his Zofran and Phenergan as before. The patient has a history of gastroparesis and cyclic vomiting. He is a known marijuana user. He has been to our ED multiple times in the past with similar complaints to today's complaint. He did refuse x-rays today. The patient does feel comfortable with discharge. He will return if worsening or if his vomiting returns and is not controlled with his prescription medications. Past Med/Surg History Medical History Anemia Cyclic vomiting syndrome Diabetes Gastroparesis Hepatitis History of opioid abuse Pneumomediastinum Soft tissue abscess Surgical History No pertinent past surgical history Family History Other Cancer Diabetes Heart disease Hypertension Social History Smoking Status: Never smoker Cigarettes Per Day: 10 cigarettes per day; Second Hand Exposure: No; Hx Alcohol Use: No Hx Substance Use: Yes Prescribed Medications: Marijuana Last Used Substance: Unknown Last Used Substance Other:: Last use of MJ was 2 weeks ago Substance Use Type Other:: Pt states he does not use substances, but informed ED he uses marijuana Preferred Language: German Communication Ability: Effective Therapist Rrt Required: No Beliefs That Will Affect Care: None marital status: Single Current Living Situation: Parent Feels Safe at Home: Yes Assistive Devices: None Allergies Allergies Allergy/AdvReac Type Severity Reaction Status Date / Time Cephalosporins Allergy Intermediate Hives Verified 07/27/20 18:18 Sulfa (Sulfonamide Allergy Intermediate Hives Verified 07/27/20 18:18 Antibiotics) azithromycin [From Zithromax] AdvReac Intermediate Hives Verified 07/27/20 18:18 Home Meds Home Medications Medication Instructions Recorded Confirmed glucagon 3 mg INTNAS ONCE PRN 01/26/20 07/27/20 diphenhydramine HCl [Benadryl] 25 mg PO HS PRN 05/15/20 07/27/20 insulin lispro [Humalog U-100 1 sliding scale dose SUBCUT 05/15/20 07/27/20 Insulin] USEASDIRECTD melatonin 5 mg PO HS 05/15/20 07/27/20 methadone 33 mg PO DAILY 05/15/20 07/27/20 ondansetron 4 mg PO TID PRN 06/01/20 07/27/20 promethazine 25 mg PO TID PRN 06/01/20 07/27/20 Previous Rx's Medication Instructions Recorded promethazine 25 mg W[place] Q6H PRN #12 ea 06/01/20 metoclopramide HCl [Reglan] 10 mg PO Q6H PRN #10 tab 07/27/20 Results & Data (ED) Vital Signs Vital Signs - 24 hr 07/27/20 17:34 07/27/20 18:03 07/27/20 19:02 Temperature 36.4 C L Temperature Source Temporal Artery Scan Pulse Rate 83 Pulse Rate [Right Finger] 76 Pulse Rhythm Regular Pulse Rhythm [Right Finger] Regular Pulse Strength Normal Pulse Strength [Right Finger] Normal Respiratory Rate 20 20 Respiratory Effort / Characteristics Non-Labored Non-Labored Spontaneous Respiratory Depth Normal Normal Respiratory Pattern Regular Blood Pressure 142/80 H Blood Pressure [Right Arm] 126/71 Blood Pressure Mean 100 Blood Pressure Mean [Right Arm] 89 Blood Pressure Position Sitting Blood Pressure Position [Right Arm] Sitting Pulse Oximetry 98 97 100 Oxygen Delivery Method Room Air Room Air Room Air Sepsis Recent Fever Within 48 Hours No Sepsis New/Unexplained Change in Mental Status No Sepsis Action Taken by Nursing No Action Required Home Medications Current Medication List: was personally reviewed by me Laboratory Data Attestation: I reviewed the patient's lab results. Result diagrams: 07/27/20 17:47 07/27/20 17:47 Lab Results 07/27/20 07/27/20 07/27/20 Range/Units 17:47 17:47 18:16 WBC 12.61 H (4.8-10.8) K/uL RBC 4.75 (4.7-6.1) M/uL Hgb 14.0 (14.0-18.0) g/dL Hct 43.2 (42-52) % MCV 90.9 (80-100) fL MCH 29.5 (25-34) pg MCHC 32.4 (32-36) g/dL RDW Std Deviation 42.6 (36.4-46.3) fL RDW Coeff of Carlos 12.8 (11.5-14.5) % Plt Count 223 (130-400) K/uL MPV 10.3 (7.4-10.4) fL Immature Gran % (Auto) 0.2 % Neut % (Auto) 88.1 % Lymph % (Auto) 6.7 % [place] % (Auto) 4.5 % Eos % (Auto) 0.3 % Baso % (Auto) 0.2 % Neut # (Auto) 11.09 H (1.4-6.5) K/uL Lymph # (Auto) 0.85 L (1.2-3.4) K/uL [place] # (Auto) 0.57 (0.11-0.59) K/uL Eos # (Auto) 0.04 (0-0.5) K/uL Baso # (Auto) 0.03 (0-0.2) K/uL Immature Gran # (Auto) 0.03 H (0.00-0.02) K/uL Sodium 140 (136-145) mmol/L Potassium 3.8 (3.5-5.1) mmol/L Chloride 102 (98-107) mmol/L Carbon Dioxide 31 (21-32) mmol/L Anion Gap 7.0 (3-11) BUN 17 (7-18) mg/dl Creatinine 0.96 (0.6-1.4) mg/dl Est Cr Clr Drug Dosing 107.1 ml/min Est GFR ( Amer) 127.7 Est GFR (Non-Af Amer) 110.2 BUN/Creatinine Ratio 18.1 (10-20) Glucose 249 H (70-99) mg/dl POC Glucose 224 H (70-99) mg/dl Calcium 9.4 (8.5-10.1) mg/dl Magnesium 1.8 (1.8-2.4) mg/dl Total Bilirubin 0.7 (0.2-1) mg/dl AST 9 L (15-37) U/L ALT 23 (12-78) U/L Alkaline Phosphatase 78 (45-117) U/L Total Protein 8.3 H (6.4-8.2) gm/dl Albumin 4.7 (3.4-5.0) gm/dl Globulin 3.6 (2.5-4.0) gm/dl Albumin/Globulin Ratio 1.3 (0.9-2) TSH 0.787 (0.300-4.500) uIu/ml Administered Medications Discontinued Medications Diphenhydramine HCl (Diphenhydramine 50 Mg/Ml Vial) 12.5 mg IV NOW STA Stop: 07/27/20 17:44 Last Admin: 07/27/20 17:55 Dose: 12.5 mg Documented by: [id number] Sodium Chloride (Nss 1000ml) 1,000 mls @ 999 mls/hr IV .Q1H1M YUE Stop: 07/27/20 18:45 Last Infusion: 07/27/20 19:04 Dose: 0 mls/hr Documented by: [id number] Admin: 07/27/20 17:54 Dose: 999 mls/hr Documented by: [id number] Promethazine HCl (Phenergan) 25 mg in 51 mls @ 204 mls/hr IV NOW STA Stop: 07/27/20 17:57 Last Infusion: 07/27/20 19:04 Dose: 0 mls/hr Documented by: [id number] Admin: 07/27/20 18:02 Dose: 204 mls/hr Documented by: [id number] Lactated Ringer's (Lr) 1,000 mls @ 999 mls/hr IV .Q1H1M STA Stop: 07/27/20 19:37 Last Infusion: 07/27/20 19:48 Dose: 0 mls/hr Documented by: [id number] Admin: 07/27/20 19:03 Dose: 999 mls/hr Documented by: [id number] Metoclopramide HCl (Metoclopramide Hcl Inj 5 Mg/Ml 2 Ml Vial) 10 mg IV NOW STA Stop: 07/27/20 17:44 Last Admin: 07/27/20 17:56 Dose: 10 mg Documented by: [id number] Discharge Plan Visit Data Chief Complaint: Nausea Stated Complaint: NAUSEA ED Provider: Scott Herrmann Discharge Problem: Vomiting, Gastroparesis, Acute dehydration Patient Disposition: Home - Self-Care Condition: Good Discharge Instructions Lul/Other Patient Handouts: Abdominal Pain Activity Restrictions/Additional Instructions: continue the phenergan and zofran as before try reglan 1 tab every 6 hours for vomiting and nausea bland simple easy diet--crackers, soup follow with your specialist in [place] return if worsening as we discussed Forms Stand Alone Forms: [facility], Virtual Emergency Department, Important Visit Information Prescriptions Prescriptions: New metoclopramide HCl [Reglan] 10 mg tablet 10 mg PO Q6H PRN (Reason: nausea and vomiting) Qty: 10 RF: 2 No Action diphenhydramine HCl [Benadryl] 25 mg Capsule 25 mg PO HS PRN (Reason: Sleep) RF: 0 methadone 10 mg/mL Concentrate 33 mg PO DAILY RF: 0 insulin lispro [Humalog U-100 Insulin] 100 unit/mL Solution 1 sliding scale dose SUBCUT USEASDIRECTD RF: 0 melatonin 5 mg Tablet 5 mg PO HS RF: 0 promethazine 25 mg tablet 25 mg PO TID PRN (Reason: nausea) RF: 0 ondansetron 4 mg tablet,disintegrating 4 mg PO TID PRN (Reason: Nausea) RF: 0 promethazine 25 mg suppository 25 mg WV Q6H PRN (Reason: sedation) Qty: 12 RF: 0 glucagon 3 mg/actuation spray,non-aerosol 3 mg INTNAS ONCE PRN (Reason: Hypoglycemia) RF: 0 Referrals Referrals: Oneil Tinajero MD [Primary Care Provider] - Discharge Problem: Vomiting Qualifiers: Vomiting type: unspecified Vomiting Intractability: non-intractable Nausea presence: with nausea Qualified Code(s): R11.2 - Nausea with vomiting, unspecified
[2020-07-27 17:55] LABS: Basophils # (auto) 0.03 K/uL (0-0.2); Basophils % (auto) 0.2 %; Eosinophils # (auto) 0.04 K/uL (0-0.5); Eosinophils % (auto) 0.3 %; Hematocrit (blood only) 43.2 % (42-52); Immature Granulocytes # (auto) 0.03 K/uL (0.00-0.02); Immature Granulocytes % (auto) 0.2 %; Lymphocytes # (auto) 0.85 K/uL (1.2-3.4); Lymphocytes % (auto) 6.7 %; Mean Corpuscular Hemoglobin 29.5 pg (25-34); Mean Corpuscular Hgb Conc 32.4 g/dL (32-36); Mean Corpuscular Volume 90.9 fL (80-100); Mean Platelet Volume 10.3 fL (7.4-10.4); Monocytes # (auto) 0.57 K/uL (0.11-0.59); Monocytes % (auto) 4.5 %; Neutrophils # (auto) 11.09 K/uL (1.4-6.5); Neutrophils % (auto) 88.1 %; Platelet Count 223 K/uL (130-400); RDW Coefficient of Variation 12.8 % (11.5-14.5); RDW Standard Deviation 42.6 fL (36.4-46.3); Red Blood Count 4.75 M/uL (4.7-6.1); White Blood Count 12.61 K/uL (4.8-10.8)
[2020-07-27 18:15] LABS: Albumin Level 4.7 gm/dl (3.4-5.0); BUN Creatinine Ratio 18.1 (10-20); Calcium 9.4 mg/dl (8.5-10.1); Creatinine Clr Calc Pharmacy 107.1 ml/min; Est GFR (African American) 127.7; Est GFR (Non-African American) 110.2; Magnesium 1.8 mg/dl (1.8-2.4); Potassium 3.8 mmol/L (3.5-5.1)
[2020-07-27 18:26] LABS: Albumin Globulin Ratio 1.3 (0.9-2); Bilirubin,Total 0.7 mg/dl (0.2-1); Globulin 3.6 gm/dl (2.5-4.0); Thyroid Stimulating Hormone 0.787 uIu/ml (0.300-4.500); Total Protein 8.3 gm/dl (6.4-8.2)
[2020-07-27] MEDS ORDERED: LACTATED RINGER'S 1,000 ML IV STA (18:37)
[2020-07-27] MEDS ORDERED: METOCLOPRAMIDE HCL 10 MG TABLET PO STA (20:08)
[2020-07-27] MEDS ORDERED: HALOPERIDOL LACTATE 5 MG in SODIUM CHLORIDE 0.9% 500 ML IV STA (20:49)
[2020-07-27] MEDS ORDERED: FAMOTIDINE 20MG IV PUSH 20 MG/5 ML SYR IV STA (20:51)
[2020-07-27] MEDS ORDERED: CAPSAICIN CR 0.075% 60 GM TUBE EXT STA (20:53)
[2020-07-27] MEDS ORDERED: HALOPERIDOL LACTATE 5 MG/ML 1 ML VIAL ONE (20:58)
--- NOTE | 2020-07-27 21:23 | Emergency Department Note ---
ED Visit Note The patient was taken in signout from Dr. Herrmann at the change of shift. Please see that note for details. The patient was pending reevaluation for discharge following additional antiemetics in setting presenting with intractable nausea and vomiting that began today. In brief, the patient is a 25-year-old gentleman with a past medical history of IDDM 1, gastroparesis, marijuana use, history of opioid abuse who presents emergency department with persistent nausea and vomiting since this morning. He reports he did have a flare of his symptoms a week ago and used capsaicin and his symptoms calmed. He reports he did not try this this time. The patient's blood work did show hyperglycemia but there is no metabolic acidosis to suggest DKA at this time. He was given IV fluid hydration, Phenergan, Reglan but feels as his symptoms have not improved. Upon RNs reevaluation for discharge the patient did vomit again following p.o. trial. He prefers admission at this time. I reevaluated the patient and he appears uncomfortable and clinically dry. His abdomen is benign. Repeat BSG 218. Lipase is not elevated. Covid19 RNA, NAAT was negative. Additional medications were ordered including Haldol, Pepcid, diphenhydramine, topical capsaicin. However, given the patient's persistent symptoms in the setting of his type 1 diabetes with uncontrolled blood sugars will refer the patient for admission. Case was discussed with Dr. Chambers, [facility] [place] hospitalist, who will evaluate the patient for admission. . : Vomiting Qualifiers: Vomiting type: unspecified Vomiting Intractability: non-intractable Nausea pre sence: with nausea Qualified Code(s): R11.2 - Nausea with vomiting, unspecified
[2020-07-27 21:29] LABS: iSTAT Creatinine 0.6 mg/dl (0.6-1.3); iSTAT Hemoglobin 12.6 g/dl (14.0-18.0); iSTAT Ionized Calcium 1.04 mmol/l (1.12-1.32)
[2020-07-27] MEDS ORDERED: PROMETHAZINE HCL 25 MG TAB PO PRN (21:56)
[2020-07-27] MEDS ORDERED: PROCHLORPERAZINE 5 MG/ML 2 ML VIAL IV PRN (21:56)
[2020-07-27] MEDS ORDERED: diphenhydrAMINE 50 MG/ML VIAL IV PRN (21:56)
[2020-07-27] MEDS ORDERED: PHARMACY GLYCEMIC MGMT CONSULT STA (21:56)
[2020-07-27] MEDS ORDERED: METOCLOPRAMIDE HCL INJ 5 MG/ML 2 ML VIAL IV PRN (21:56)
--- NOTE | 2020-07-27 22:00 | History & Physical Report ---
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 Admitted for intractable symptoms and dehydration requiring IV fluids and IV anti-nausea medications. Intractable nausea/vomiting: - Differentials include cannabinoid hyperemesis syndrome, cyclic vomiting 2/2 gastroparesis, vomiting 2/2 hyperglycemia. - Orders placed for Zofran TID scheduled, promethazine, Reglan, diphenhydramine as needed for nausea and vomiting. - Will run NSS w/ KCl 20 mEq @200cc/hr for acute dehydration. - NPO for now, allow ice chips and sips as tolerated. - BMP in morning to assess electrolytes given vomiting. DM1: - Patient with history DM1 with insulin pump that he manages. - Reports no changes in BSG over the last several days, no changes in home medications, no recent illnesses. - Has been using insulin throughout his illness. - Will check urine for ketones, though these could be elevated secondary to repeated emesis and drug abuse. A1c ordered with AM labs. - Euglycemic DKA less likely in this patient given repeat admissions for similar symptoms 2/2 hyperemesis and gastroparesis, as well as normal anion gap. - Pharmacy glycemic consult ordered to help manage BSG/insulin while admitted. BSG q6h. Prior heroin abuse with chronic methadone use: - Patient with history of heroin abuse, now established with methadone clinic. - Does report that methadone dosage was changed on Tuesday from 16 mg to 14 mg daily, however did not start feeling unwell until this morning. - Unable to visualize methadone daily dosing on PDMP, day team / pharmacy will call patient's methadone clinic to confirm methadone dosing prior to giving dose tomorrow morning. CODE STATUS: Full code FEN GI: N.p.o. 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 Has a history of several admissions for the same in the past, thought to be secondary to gastroparesis versus cannabinoid hyperemesis syndrome. In the ER patient was noted to have elevated BSG to low 200s, mild leukocytosis, normal anion gap, normal lipase, COVID-19 testing negative. No diagnostic imaging was performed. On my interview patient is still nauseous, however reports that it is significantly improved as compared to on arrival. Endorses poor appetite x1 day due to nausea and vomiting, but no illness prior and felt well yesterday. Does report marijuana use, "half a gram about 3 times a week". Does also endorse that his methadone dose was decreased on Tuesday, from 16 to 14 mg daily. Allergies Allergy/AdvReac Type Severity Reaction Status Date / Time Cephalosporins Allergy Intermediate Hives Verified 07/27/20 18:18 Sulfa (Sulfonamide Allergy Intermediate Hives Verified 07/27/20 18:18 Antibiotics) azithromycin [From Zithromax] AdvReac Intermediate Hives Verified 07/27/20 18:18 Home Medications Medication Instructions Recorded Confirmed Type glucagon 3 mg INTNAS ONCE PRN 01/26/20 07/27/20 History diphenhydramine HCl [Benadryl] 25 mg PO HS PRN 05/15/20 07/27/20 History insulin lispro [Humalog U-100 1 sliding scale dose SUBCUT 05/15/20 07/27/20 History Insulin] USEASDIRECTD melatonin 5 mg PO HS 05/15/20 07/27/20 History methadone 14 mg PO DAILY 05/15/20 07/28/20 History ondansetron 4 mg PO TID PRN 06/01/20 07/27/20 History promethazine 25 mg PO TID PRN 06/01/20 07/27/20 History promethazine 25 mg [place] Q6H PRN #12 ea 06/01/20 07/27/20 Rx metoclopramide HCl [Reglan] 10 mg PO Q6H PRN #10 tab 07/27/20 Rx Past Med/Surg History Medical History Anemia Cyclic vomiting syndrome Diabetes Gastroparesis Hepatitis History of opioid abuse Pneumomediastinum Soft tissue abscess Surgical History No pertinent past surgical history Family History Other Cancer Diabetes Heart disease Hypertension Social History Smoking Status: Never smoker Cigarettes Per Day: 10 cigarettes per day; Second Hand Exposure: No; Hx Alcohol Use: No Hx Substance Use: Yes Prescribed Medications: Marijuana Last Used Substance: Unknown Last Used Substance Other:: Last use of MJ was 2 weeks ago Substance Use Type Other:: Pt states he does not use substances, but informed ED he uses marijuana Preferred Language: Pakistani Communication Ability: Effective Dentures Lab Technician Required: No Beliefs That Will Affect Care: None marital status: Single Current Living Situation: Parent Feels Safe at Home: Yes Safety Concerns: Feels Safe At This Time Assistive Devices: None Review of Systems Review of Systems: All systems reviewed & are unremarkable except as noted in HPI & below Constitutional: no fever, no chills and no malaise Respiratory: no cough and no dyspnea Cardiovascular: no chest pain, no palpitations and no edema Gastrointestinal: + nausea and + vomiting; no abdominal pain, no constipation and no diarrhea/loose stools Physical Exam Constitutional: well developed and + thin Eyes: PERRL, conjunctivae normal, anicteric sclerae ENMT: external ear and nose normal, oropharynx normal Neck: normal visual inspection Respiratory: normal respiratory effort, lungs clear to auscultation Cardiovascular: RRR, no murmur, no edema Gastrointestinal (Abdomen): normal bowel sounds, soft, nontender, no hepatosplenomegaly Musculoskeletal: no cyanosis or clubbing, extremities motor strength 5/5 Skin: no rashes, warm and dry Neurologic: AAOx3, normal speech. PERRL, normal visual acuity bilaterally. Bilateral UE, LE, and face without sensory or motor deficits. No tremor. Psychiatric: A+Ox3, euthymic affect Results & Data Results & Data ([facility]) Vital Signs (Past 12 Hours) Vital Signs Temp Pulse Pulse Resp BP BP Pulse Ox 07/27/20 20:44 77 20 116/78 98 07/27/20 19:02 76 20 126/71 100 07/27/20 18:03 97 07/27/20 17:34 36.4 C L 83 20 142/80 H 98 Code Status & VTE Plan VTE Prophylaxis Plan VTE Prophylaxis will be ordered: Yes Supervising Physician Co-Signing Physician Notes Attending addendum: I have physically seen this patient, have supervised the medical residents activities, and agree with the H&P unless as otherwise noted. Assessment and Plan: Cannabinoid hyperemesis syndrome/intractable nausea vomiting- Zofran, promethazine, Reglan, diphenhydramine. NSS + KCl 20 mEq at 200 mils per hour N.p.o. for now BMP in the a.m. tomorrow Diabetes mellitus- Hold his insulin pump for now. Pharmacy glycemic consult Heroin abuse history- Methadone per methadone clinic Remaining orders and notations as noted Resident Activity Tracking Resident Involvement: Resident Care Provided Care Provided: Adult Hospital Medicine (1) Type I diabetes mellitus Diabetes mellitus complication status: with hyperglycemia Qualified Code(s): E10.65 - Type 1 diabetes mellitus with hyperglycemia
[2020-07-27] MEDS ORDERED: GLUCOSE 10 TABS/TUBE PO PRN (22:53)
[2020-07-27] MEDS ORDERED: GLUCOSE 40% GEL 15 GM TUBE PO PRN (22:53)
[2020-07-27] MEDS ORDERED: ACETAMINOPHEN 325 MG TAB PO PRN (22:53)
[2020-07-27] MEDS ORDERED: CARBOHYDRATES FOR HYPOGLYCEMIA PO PRN (22:53)
[2020-07-27] MEDS ORDERED: POLYETHYLENE (MIRALAX) 17 GM PACK PO PRN (22:53)
[2020-07-27] MEDS ORDERED: GLUCAGON FOR INJ 1 MG VIAL SQ PRN (22:53)
[2020-07-27] MEDS ORDERED: DEXTROSE 50% 50 ML SYRINGE IV PRN (22:53)
[2020-07-27] MEDS: ONDANSETRON INJ 2 MG/ML 2 ML VIAL IV SCH (23:28)
[2020-07-27] MEDS ORDERED: PHARMACY GLYCEMIC MGMT CONSULT PRN (23:56)
[2020-07-28] MEDS: POTASSIUM CHLORIDE 20 MEQ in SODIUM CHLORIDE 0.9% 1000ML 1,000 ML IV SCH ×4 (00:05→11:31)
[2020-07-28] MEDS ORDERED: INSULIN HUMAN LISPRO (humaLOG) 100 UNITS/ML VIAL SC PRN (00:30)
[2020-07-28 00:33] LABS: Appearance Urine Clear (Clear); Bilirubin Urine Negative (Negative); Blood Urine Negative (Negative); Color Urine Yellow; Glucose Urine UA 3+ (Negative); Ketones Urine 4+ (Negative); Leukocyte Esterase Urine Negative (Negative); Nitrite Urine Negative (Negative); Protein Urine Negative (Negative); Specific Gravity Urine 1.033 (1.000-1.030); Urobilinogen Urine Negative (Negative); pH Urine 8.5 (4.5-7.5)
[2020-07-28 00:51] LABS: Amphetamines+Metham, Urine Neg (Neg); Barbiturates, Urine Neg (Neg); Benzodiazepine, Urine Neg (Neg); Cocaine, Urine Neg (Neg); MDMA (Ecstacy), Urine Neg (Neg); Methadone, Urine Neg (Neg); Opiate, Urine Neg (Neg); Phencyclidine, Urine Neg (Neg)
[2020-07-28] MEDS ORDERED: DC ALL PREVIOUSLY ORDERED DIABETES MEDS ONE (02:36)
[2020-07-28] MEDS ORDERED: LANTUS PER UNIT CHARGE SQ STA ×2 (02:42)
[2020-07-28] MEDS: INSULIN ASPART 100 UNITS/ML 3 ML PEN SC SCH ×6 (03:19→21:00)
[2020-07-28] MEDS ORDERED: INSULIN HUMAN REGULAR PER UNIT 10 UNITS in SYRINGE 9.9 ML IV STA (04:43)
[2020-07-28] MEDS: ONDANSETRON INJ 2 MG/ML 2 ML VIAL IV SCH (05:54)
[2020-07-28 07:26] LABS: BUN Creatinine Ratio 19.8 (10-20); Calcium 8.9 mg/dl (8.5-10.1); Creatinine Clr Calc Pharmacy 104.9 ml/min; Est GFR (African American) 124.6; Est GFR (Non-African American) 107.5; Potassium 3.9 mmol/L (3.5-5.1)
--- NOTE | 2020-07-28 07:41 | Pharmacy Report ---
Pharmacy Glycemic Short Note 2 - Date of Service July 28, 2020 - Glycemic Short BSG Results (Last 24 hours): 07/27/20 07/27/20 07/27/20 17:47 18:16 21:05 Glucose 249 H POC Glucose 224 H 218 H POC Glucose (other) 07/27/20 07/28/20 07/28/20 21:17 02:31 04:02 Glucose POC Glucose 344 H* 378 H* POC Glucose (other) 233 H 07/28/20 07/28/20 07/28/20 04:03 04:04 05:21 Glucose POC Glucose 430 H* 447 H* 377 H* POC Glucose (other) 07/28/20 07/28/20 07/28/20 05:22 05:52 05:53 Glucose POC Glucose 368 H* 319 H* 324 H* POC Glucose (other) 07/28/20 06:37 Glucose 257 H POC Glucose POC Glucose (other) OUTPATIENT ANTIDIABETIC REGIMEN: * Humalog insulin pump / basal 00 - 1 unit/hr, basal 09 - 1.2 unit/hr, total daily dose 25 units/day dosing taken from 12/2019 outpatient note * A1c 7.1% 07/28/20 ASSESSMENT: * 25 year old with intractable vomiting/nausea. DM1 with insulin pump and suspected gastroparesis, prior drug abuse. Continued with insulin pump on admission despite high BSGs, however pump ran out of insulin, pharmacy notified by provider and want us to change to a SQ insulin regimen. * Patient received 20 units of Lantus early this AM, 10 units IV insulin and also correctional insulin. On last admission, patient required ~25 units of basal insulin daily while on diet and BSGs well controlled. Basal insulin dose for today is ~20% reduction in previous dosing, which is reasonable for NPO status * Had nurse recheck BSG ~2 hours after insulin given to ensure BSG trending downward, now at 211 mg/dL. AM labs look normal, no anion gap noted, some ketones in urine on admission * Patient continues NPO status for GI workup. Will continue to monitor very closely while NPO status / will consider Q4 hr checks while NPO PLAN FOR INPATIENT GLYCEMIC CONTROL: * Hold outpatient oral diabetes medications * Basal insulin * Lantus 20 units daily * Bolus insulin * NovoLog per scale ACHS or Q6hrs while NPO * Goal Range: Low 100 mg/dL - High 150 mg/dL * Correction Factor: 30 mg/dL/unit * Nutritional / Prandial insulin per carb ratio of 1 unit per 10 grams CHO consumed PLAN FOR DISCHARGE: * A1c of 7.1% on admission, reasonable to resume insulin pump on discharge as long as no contraindications exist. Patient follows with [facility] for DM management outpatient. Would recommend continued follow up with them.
[2020-07-28 08:12] LABS: Estimated Average Glucose 157 mg/dl; Hemoglobin A1C 7.1 % (4.5-5.6)
[2020-07-28] MEDS ORDERED: METHADONE ORAL SOLN 2 MG/ML PO SCH (09:00)
[2020-07-28] MEDS: METHADONE PO SCH (09:29)
--- NOTE | 2020-07-28 12:26 | Hospitalist Progress Note ---
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 Admitted for intractable symptoms and dehydration requiring IV fluids and IV anti-nausea medications. Intractable nausea/vomiting: - Differentials include cannabinoid hyperemesis syndrome, cyclic vomiting 2/2 gastroparesis, vomiting 2/2 hyperglycemia, or opioid withdrawal. - Advance diet as tolerated: Asked for clear liquids today. - Continue PRN Zofran, Reglan, Compazine DM1: - Patient with history DM1 with insulin pump that he manages. A1c was 7.1% this admission. - Reports no changes in BSG over the last several days, no changes in home medications, no recent illnesses. - Has been using insulin throughout his illness. - Pharmacy glycemic consult ordered to help manage BSG/insulin while admitted. BSG q6h -> High within last 24 hours, improved now down to 210 - 220. Prior heroin abuse with chronic methadone use: - Patient with history of heroin abuse, now established with methadone clinic. [facility]. Picks up methadone with home doses the other days. - Does report that methadone dosage was changed on Tuesday from 16 mg to 14 mg daily. He is aiming to wean himself off. - Called on 07/28/2020 with message left. (2) Marijuana use: (3) Type I diabetes mellitus: (4) History of opioid abuse: (5) Methadone dependence: Admission and Anticipated Discharge Date Admission Date: July 27, 2020 Subjective Feeling better this morning. One episode of dry heave/emesis ~2am, but none so far today. Reports no fevers/chills, chest pain, shortness of breath, abdominal pain, or vomiting. Physical Exam Constitutional: WD/WN, vitals as above Eyes: EOM intact bilaterally; no conjunctival abnormality ENMT: external ear and nose normal, oropharynx normal Neck: trachea midline, no thyromegaly normal visual inspection Respiratory: normal respiratory effort, lungs clear to auscultation no respiratory distress Cardiovascular: RRR, no murmur, no edema Gastrointestinal (Abdomen): Inspection/Auscultation: abdomen normal to inspection; abdomen not distended Musculoskeletal: no cyanosis or clubbing, extremities motor strength 5/5 Skin: no rashes, warm and dry Neurologic: moves all extremities and awake Psychiatric: Orientation: alert, oriented to person and cooperative Results & Data Results & Data ([facility]) Vital Signs (Past 12 Hours) Vital Signs Temp Pulse Resp BP Pulse Ox 07/28/20 07:39 37.3 C 97 H 18 90/48 L 97 07/28/20 04:10 37.1 C 114 H 20 109/65 98 PG Care Time/CCT Total # of Minutes Spent Total Time Spent with Patient: Total time spent is greater than 50% in coordination of care (as documented) at patient's floor/unit and/or counseling patient: Coding Level of Care Code 73279 Subseq Hosp Care Lvl 2 Diagnoses Intractable vomiting with nausea R11.2 Marijuana use F12.90 Type I diabetes mellitus E10.65 Diabetes mellitus complication status: with hyperglycemia History of opioid abuse Z87.898 Methadone dependence F11.20 (1) Type I diabetes mellitus Diabetes mellitus complication status: with hyperglycemia Qualified Code(s): E10.65 - Type 1 diabetes mellitus with hyperglycemia
--- NOTE | 2020-07-28 13:22 | Electrocardiogram Report ---
Test Reason : Blood Pressure : / mmHG Vent. Rate : 076 BPM Atrial Rate : 076 BPM P-R Int : 148 ms QRS Dur : 100 ms QT Int : 396 ms P-R-T Axes : 082 065 080 degrees QTc Int : 445 ms Poor data quality, interpretation may be adversely affected Normal sinus rhythm with sinus arrhythmia Possible Left atrial enlargement RSR' or QR pattern in V1 suggests right ventricular conduction delay Nonspecific ST abnormality Abnormal ECG When compared with ECG of 04-JUN-2020 06:58, No significant change was found Confirmed by Lex Eason ([id number]) on 07/28/2020 1:22:14 PM Referred By: REFERRED SELF Confirmed By:Lex Eason
[2020-07-28] MEDS ORDERED: Nursing to Pharmacy Communication SCH (14:15)
[2020-07-28] MEDS: ondansetron HCL 8 MG in DEXTROSE 5% 50 ML IV SCH ×2 (14:17→21:56)
[2020-07-28] MEDS: NSS + 20MEQ KCL 20 MEQ/1,000 ML BAG IV SCH ×2 (15:54→20:54)
[2020-07-28] MEDS ORDERED: INSULIN ASPART 100 UNITS/ML 3 ML PEN SC SCH (16:00)
[2020-07-28] MEDS ORDERED: INSULIN GLARGINE SOLOSTAR 100 UNITS/ML 3 ML PEN SC ONE (17:30)
[2020-07-28] MEDS ORDERED: MELATONIN 3 MG TAB PO SCH (21:00)
[2020-07-28] MEDS ORDERED: INSULIN GLARGINE SOLOSTAR 100 UNITS/ML 3 ML PEN SC SCH (21:00)
--- NOTE | 2020-07-28 22:17 | Billing Data ---
Date of Service July 28, 2020 Coding Level of Care Code 44566 OBS Care - Level 3
[2020-07-29] MEDS ORDERED: INSULIN ASPART 100 UNITS/ML 3 ML PEN SC SCH ×2
[2020-07-29] MEDS: NSS + 20MEQ KCL 20 MEQ/1,000 ML BAG IV SCH ×2 (01:57→07:25)
[2020-07-29] MEDS: ondansetron HCL 8 MG in DEXTROSE 5% 50 ML IV SCH (05:25)
[2020-07-29 07:20] LABS: BUN Creatinine Ratio 14.9 (10-20); Calcium 8.4 mg/dl (8.5-10.1); Creatinine Clr Calc Pharmacy 128.5 ml/min; Est GFR (African American) 144.9; Magnesium 1.6 mg/dl (1.8-2.4); Potassium 3.6 mmol/L (3.5-5.1)
[2020-07-29 08:22] LABS: Hematocrit (blood only) 32.8 % (42-52); Hemoglobin 10.7 g/dL (14.0-18.0); Mean Corpuscular Hemoglobin 29.5 pg (25-34); Mean Corpuscular Hgb Conc 32.6 g/dL (32-36); Mean Corpuscular Volume 90.4 fL (80-100); Mean Platelet Volume 10.2 fL (7.4-10.4); Platelet Count 169 K/uL (130-400); Red Blood Count 3.63 M/uL (4.7-6.1)
[2020-07-29] MEDS ORDERED: METHADONE ORAL SOLN 2 MG/ML PO SCH (09:00)
[2020-07-29] MEDS ORDERED: INSULIN GLARGINE SOLOSTAR 100 UNITS/ML 3 ML PEN SC SCH (09:00)
[2020-07-29] MEDS ORDERED: ONDANSETRON 4 MG OD TAB PO PRN (09:24)
[2020-07-29] MEDS: MAGNESIUM SULFATE / D5W 1 GM/100 ML BAG IV SCH ×2 (09:38→11:18)
[2020-07-29] MEDS: INSULIN ASPART 100 UNITS/ML 3 ML PEN SC SCH ×2 (09:42→12:54)
[2020-07-29] MEDS: METHADONE PO SCH (09:56)
[2020-07-29 10:37] VITALS: TEMP 98.6; O2SAT 99
[2020-07-29 13:24] VITALS: BP 135/69; PULSE 93
--- NOTE | 2020-07-29 17:24 | Discharge Summary ---
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 Has a history of several admissions for the same in the past, thought to be secondary to gastroparesis versus cannabinoid hyperemesis syndrome. In the ER patient was noted to have elevated BSG to low 200s, mild leukocytosis, normal anion gap, normal lipase, COVID-19 testing negative. No diagnostic imaging was performed. On my interview patient is still nauseous, however reports that it is significantly improved as compared to on arrival. Endorses poor appetite x1 day due to nausea and vomiting, but no illness prior and felt well yesterday. Does report marijuana use, "half a gram about 3 times a week". Does also endorse that his methadone dose was decreased on Tuesday, from 16 to 14 mg daily. Principal Diagnosis Possible opioid withdrawal Discharge Exam Constitutional WD/WN, vitals as above Eyes EOM intact bilaterally; no conjunctival abnormality ENMT external ear and nose normal, oropharynx normal Neck trachea midline, no thyromegaly normal visual inspection Respiratory normal respiratory effort, lungs clear to auscultation no respiratory distress Cardiovascular RRR, no murmur, no edema Gastrointestinal (Abdomen) Inspection/Auscultation: abdomen normal to inspection; abdomen not distended Musculoskeletal no cyanosis or clubbing, extremities motor strength 5/5 Skin no rashes, warm and dry Neurologic moves all extremities and awake Psychiatric Orientation: alert, oriented to person and cooperative Discharge Data Allergies Allergy/AdvReac Type Severity Reaction Status Date / Time Cephalosporins Allergy Intermediate Hives Verified 07/27/20 18:18 Sulfa (Sulfonamide Allergy Intermediate Hives Verified 07/27/20 18:18 Antibiotics) azithromycin [From Zithromax] AdvReac Intermediate Hives Verified 07/27/20 18:18 Consultations 07/27/20 21:14 ED Decision to Admit Stat Hospital Course (1) Intractable vomiting with nausea: 25 yo M Hx DM1 with insulin pump and suspected gastroparesis, 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 Admitted for intractable symptoms and dehydration requiring IV fluids and IV anti-nausea medications. Intractable nausea/vomiting: - Differentials include cannabinoid hyperemesis syndrome, cyclic vomiting 2/2 gastroparesis, vomiting 2/2 hyperglycemia, or opioid withdrawal. - Advance diet as tolerated: Asked for clear liquids today. - Continue PRN Zofran, Reglan, Compazine DM1: - Patient with history DM1 with insulin pump that he manages. A1c was 7.1% this admission. - Reports no changes in BSG over the last several days, no changes in home medications, no recent illnesses. - Has been using insulin throughout his illness. - Pharmacy glycemic consult ordered to help manage BSG/insulin while admitted. BSG q6h -> High within last 24 hours, improved now down to 210 - 220. Prior heroin abuse with chronic methadone use: - Patient with history of heroin abuse, now established with methadone clinic. [facility]. Picks up methadone with home doses the other days. - Does report that methadone dosage was changed on Tuesday from 16 mg to 14 mg daily. He is aiming to wean himself off. - Called on 07/28/2020 with message left. No one called back. - Of note: His urine tox was negative for methadone. Given the long half-life, missing a single dose should not cause this to be negative. The patient reports missing a single dose after starting to have emesis, otherwise assures me he is taking it as prescribed. If the Methadone Clinic ever calls back, I will let them know of the result in case there is concern for diversion of methadone. (2) Marijuana use: (3) Type I diabetes mellitus: (4) History of opioid abuse: (5) Methadone dependence: Total Time Total Time Spent Total Time Spent (In Minutes): 35 Discharge Plan Discharge Items Patient Disposition: Home - Self-Care Reason For Visit: INTRACTABLE NAUSEA AND VOMITING Discharge Diagnosis: Nausea and vomiting Condition on Discharge: Good Activity: Resume your previous activity Non-emergency contact: Primary Care Provider Call non-emergency contact if: your symptoms worsen Follow-up/Referrals: Kelby Rdz MD [Physician] - 08/04/20 2:30 pm Oneil Tinajero MD [Primary Care Provider] - Diet: Carb Count or DM1 Addtl Attending Provider Instructions: You were admitted with nausea and vomiting. It was possibly due to your sugars, your methadone, or maybe a viral illness. As we discussed, you got Lantus 22 units at about 9:30am this morning. Once you get your home insulin pump set up at home, please adjust the basal rate to stop and resume tomorrow morning to ensure you don't go too low overnight. You will likely need your usual carb coverage/sliding scale with meals tonight. Be sure to monitor your sugar extra closely until tomorrow morning to be sure the transition back to your pump doesn't send you too high or low. We are sending you home with some nausea medication. Please follow up with Dr. Suárez or Emily Donato as soon as possible to make sure your sugars are under good control. Pending Studies at Discharge: No Stand-Alone Forms: My [facility], Smoking Cessation Medications and DC Order Prescriptions: New metoclopramide HCl [Reglan] 10 mg tablet 10 mg PO Q6H PRN (Reason: nausea and vomiting) Qty: 10 RF: 2 Continued diphenhydramine HCl [Benadryl] 25 mg Capsule 25 mg PO HS PRN (Reason: Sleep) RF: 0 methadone 10 mg/mL Concentrate 14 mg PO DAILY RF: 0 insulin lispro [Humalog U-100 Insulin] 100 unit/mL Solution 1 sliding scale dose SUBCUT USEASDIRECTD RF: 0 melatonin 5 mg Tablet 5 mg PO HS RF: 0 promethazine 25 mg tablet 25 mg PO TID PRN (Reason: nausea) RF: 0 ondansetron 4 mg tablet,disintegrating 4 mg PO TID PRN (Reason: Nausea) RF: 0 promethazine 25 mg suppository 25 mg FL Q6H PRN (Reason: sedation) Qty: 12 RF: 0 glucagon 3 mg/actuation spray,non-aerosol 3 mg INTNAS ONCE PRN (Reason: Hypoglycemia) RF: 0 Discharge Orders: Discharge Order (Routine); Ordered 07/29/20 Ordered By: Thomas Mccarty/Other Patient Handouts: Managing Type 1 Diabetes, Managing Diabetes: The A1C Test Admission Data Admit Date/Time: 07/27/20 21:56 Attending Provider: Thomas Jarvis Admit Provider: Jaclyn Nobles Primary Care Provider: Oneil Tinajero Other Providers: Thomas Jarvis Other Interventions: Discharge Summary Assessment (RN) Last Done: 07/29/20 13:22 Coding Level of Care Code 16005 OBS Care - Discharge Diagnoses Intractable vomiting with nausea R11.2 Marijuana use F12.90 Type I diabetes mellitus E10.65 Diabetes mellitus complication status: with hyperglycemia History of opioid abuse Z87.898 Methadone dependence F11.20
[2020-07-29 19:57] LABS: Marijuana Quant, GCMS Urine >5000 ng/mL (<5)
== END 2020-07-29 14:31 | disposition home or self-care (01) ==
LOC: 3N 17:30 → ED 17:30 → SUATTDRO 21:56 → 3N 22:24

== ENCOUNTER 2020-09-12 12:49 | Observation (INO) ==
[2020-09-12] MEDS ORDERED: ONDANSETRON INJ 2 MG/ML 2 ML VIAL IV STA (13:00)
[2020-09-12] MEDS ORDERED: SODIUM CHLORIDE 0.9% 1000ML 1,000 ML IV STA (13:00)
[2020-09-12] MEDS ORDERED: diphenhydrAMINE 50 MG/ML VIAL IV STA (13:29)
[2020-09-12] MEDS ORDERED: LORazepam 1 MG/2 ML VIAL IV STA ×2 (13:29→14:40)
[2020-09-12] MEDS ORDERED: METOCLOPRAMIDE HCL INJ 5 MG/ML 2 ML VIAL IV STA (13:29)
[2020-09-12 13:32] LABS: Basophils # (auto) 0.02 K/uL (0-0.2); Basophils % (auto) 0.2 %; Eosinophils # (auto) 0.11 K/uL (0-0.5); Eosinophils % (auto) 1.3 %; Hematocrit (blood only) 41.6 % (42-52); Hemoglobin 13.9 g/dL (14.0-18.0); Immature Granulocytes # (auto) 0.01 K/uL (0.00-0.02); Immature Granulocytes % (auto) 0.1 %; Lymphocytes # (auto) 1.36 K/uL (1.2-3.4); Mean Corpuscular Hemoglobin 29.4 pg (25-34); Mean Corpuscular Hgb Conc 33.4 g/dL (32-36); Mean Corpuscular Volume 88.1 fL (80-100); Mean Platelet Volume 10.7 fL (7.4-10.4); Monocytes % (auto) 4.7 %; Neutrophils % (auto) 77.7 %; Platelet Count 230 K/uL (130-400); RDW Coefficient of Variation 12.8 % (11.5-14.5); RDW Standard Deviation 41.8 fL (36.4-46.3); Red Blood Count 4.72 M/uL (4.7-6.1)
[2020-09-12 13:53] LABS: Albumin Level 4.4 gm/dl (3.4-5.0); BUN Creatinine Ratio 9.6 (10-20); Calcium 9.5 mg/dl (8.5-10.1); Est GFR (Non-African American) 122.6; Potassium 3.9 mmol/L (3.5-5.1)
[2020-09-12 13:57] LABS: Albumin Globulin Ratio 1.4 (0.9-2); Bilirubin,Total 0.6 mg/dl (0.2-1); Globulin 3.3 gm/dl (2.5-4.0); Total Protein 7.7 gm/dl (6.4-8.2)
[2020-09-12] MEDS ORDERED: SODIUM CHLORIDE 0.9% 1000ML 500 ML IV ONE (14:40)
[2020-09-12] MEDS ORDERED: PROMETHAZINE 25 MG/51 ML BAG IV STA (14:40)
[2020-09-12] MEDS ORDERED: PROCHLORPERAZINE 1 ML IV ONE (16:41)
[2020-09-12] MEDS ORDERED: CAPSAICIN CR 0.075% 60 GM TUBE EXT STA (16:44)
--- NOTE | 2020-09-12 17:43 | Emergency Department Note ---
Impression & Plan Intractable vomiting with nausea, Type I diabetes mellitus ED Provider Note INFORMANT: Patient ED PROVIDER(S): Vicente Wood MD CHIEF COMPLAINT: Nausea and vomiting PLAN: Disposition: Admitted Condition: Good Outpatient prescription management: none Referral: None MEDICAL DECISION MAKING: Patient presented with significant nausea and vomiting. He denies any pain. Record review indicates similar visits in the past. An IV was established. Patient was hydrated. He was given Zofran. He was also given IV Reglan, Benadryl, and Ativan. He still had nausea and vomiting. Patient was given additional fluids, Ativan, and Phenergan. He was doing somewhat better but could not tolerate p.o. intake. I discussed further management in the hospital with him. He was given IV Compazine. Consultation was made with the hospitalist service for further management. Triage Nursing notes reviewed and agree them. Prior medical records reviewed regarding prior ER visit and need for admission secondary to intractable nausea and vomiting Vital Signs: reviewed and remarkable for no significant abnormalities Differential diagnosis: Etiologies such as cyclic vomiting syndrome, gastroenteritis, food borne ill ness, infections, appendicitis, diverticulitis, inflammatory bowel disease, GI bleed, biliary pathology, toxicologic, as well as others were entertained. Diagnostics interpreted by me: ECG: none Cardiac Monitoring: Cardiac monitoring ordered by me: The patient was placed on continuous cardiac monitoring and observed. It revealed a normal sinus rhythm at 71 beats per minute without ectopy or evidence of dysrhythmia. Imaging studies: Deferred Consultation(s): Dr. Miranda, hospitalist HPI: The patient is a 25 year old male who presents to the Emergency Room with complaints of nausea and vomiting. This started yesterday and is persistent. The patient also notes the following associated symptoms, fatigue. The patient has found no relieving factors. Current pain is rated as 0/10. Patient has history of gastroparesis and diabetes. He has history of cyclic vomiting. He denies any marijuana use. He is taking his medications as prescribed. Pt denies LOC, headache, fevers, chills, diaphoresis, visual changes, neck pain, chest pain, breathing difficulties, abdominal pain, back pain, melena, hematochezia, urinary symptoms, numbness, weakness, lymphadenopathy, rash, or other complaints. ROS: See above HPI for pertinent positives & negatives. A total of 10 systems reviewed and were otherwise negative. PAST MEDICAL HISTORY:See Below , diabetes gastroparesis PAST SURGICAL HISTORY:See Below, FAMILY HISTORY:See Below SOCIAL HISTORY:See Below, denies alcohol HOME MEDICATIONS:See Below ALLERGIES:See Below VITALS:See Below PHYSICAL EXAMINATION: GENERAL: Awake, alert, uncomfortable-appearing, in no distress. Actively vomiting HENT: Normocephalic, atraumatic. Oropharynx unremarkable. EYES: Normal conjunctiva. Sclera non-icteric. NECK: Inspection normal. Non-tender. Supple. No nuchal rigidity. FROM. No masses. RESPIRATORY: Clear to auscultation. No wheezes. No rales. Normal respiratory effort. CARDIAC: Tachycardic rate. Normal rhythm. No murmurs. No rubs. Extremities war m and well perfused. Pulses equal. No JVD. GI: Soft, non-distended. No tenderness to palpation. No rebound or guarding. No masses. RECTAL: Deferred. MUSCULOSKELETAL: Atraumatic. Chest examination reveals no tenderness. The back is symmetrical on inspection without obvious abnormality. There is no CVA tenderness to palpation. No joint edema. LOWER EXTREMITIES: Calves are equal size bilaterally and non-tender. No edema. No discoloration. NEURO: Normal sensorium. No sensory or motor deficits noted. SKIN: No rash or jaundice noted. Vicente Wood MD Past Med/Surg History Medical History Anemia Cyclic vomiting syndrome Diabetes Gastroparesis Hepatitis History of opioid abuse Pneumomediastinum Soft tissue abscess Surgical History No pertinent past surgical history Family History Other Cancer Diabetes Heart disease Hypertension Social History Smoking Status: Never smoker Cigarettes Per Day: 10 cigarettes per day; Second Hand Exposure: No; Hx Alcohol Use: No Hx Substance Use: Yes Prescribed Medications: Marijuana Last Used Substance: Unknown Last Used Substance Other:: Last use of MJ was 2 weeks ago Substance Use Type Other:: Pt states he does not use substances, but informed ED he uses marijuana Preferred Language: Vietnamese Communication Ability: Effective Inside Sales Professional Required: No Beliefs That Will Affect Care: None marital status: Single Current Living Situation: Parent Feels Safe at Home: Yes Assistive Devices: None Allergies Allergies Allergy/AdvReac Type Severity Reaction Status Date / Time Cephalosporins Allergy Intermediate Hives Verified 09/12/20 14:12 Sulfa (Sulfonamide Allergy Intermediate Hives Verified 09/12/20 14:12 Antibiotics) azithromycin [From Zithromax] AdvReac Intermediate Hives Verified 09/12/20 14:12 Home Meds Home Medications Medication Instructions Recorded Confirmed glucagon 3 mg INTNAS ONCE PRN 01/26/20 09/12/20 diphenhydramine HCl [Benadryl] 25 mg PO HS PRN 05/15/20 09/12/20 insulin lispro [Humalog U-100 1 sliding scale dose SUBCUT 05/15/20 09/12/20 Insulin] USEASDIRECTD melatonin 5 mg PO HS 05/15/20 09/12/20 methadone 10 mg PO DAILY 05/15/20 09/12/20 ondansetron 4 mg PO TID PRN 06/01/20 09/12/20 promethazine 25 mg PO TID PRN 06/01/20 09/12/20 Previous Rx's Medication Instructions Recorded promethazine 25 mg MD Q6H PRN #12 ea 06/01/20 metoclopramide HCl [Reglan] 10 mg PO Q6H PRN #10 tab 07/27/20 Results & Data (ED) Vital Signs Vital Signs - 24 hr 09/12/20 12:54 09/12/20 13:00 09/12/20 13:48 Temperature 36.7 C Temperature Source Temporal Artery Scan Oral Pulse Rate 67 67 Pulse Rate [Apical] Pulse Rate from SpO2 Sensor 65 Pulse Rhythm Regular Pulse Rhythm [Apical] Pulse Strength Normal Respiratory Rate 18 16 Respiratory Effort / Characteristics Non-Labored Spontaneous Respiratory Depth Normal Respiratory Pattern Regular Blood Pressure 137/83 128/84 Blood Pressure [Right Arm] Blood Pressure Mean 101 98 Blood Pressure Mean [Right Arm] Blood Pressure Position Sitting Blood Pressure Position [Right Arm] Pulse Oximetry 99 98 Oxygen Delivery Method Room Air Room Air Sepsis Recent Fever Within 48 Hours No Sepsis New/Unexplained Change in Mental Status N/A Sepsis Action Taken by Nursing No Action Required 09/12/20 13:50 09/12/20 13:57 09/12/20 14:00 Temperature Temperature Source Pulse Rate 66 69 Pulse Rate [Apical] 89 Pulse Rate from SpO2 Sensor 67 69 Pulse Rhythm Pulse Rhythm [Apical] Regular Pulse Strength Respiratory Rate 15 15 16 Respiratory Effort / Characteristics Non-Labored Respiratory Depth Normal Respiratory Pattern Blood Pressure 140/81 Blood Pressure [Right Arm] 128/84 Blood Pressure Mean 100 Blood Pressure Mean [Right Arm] 98 Blood Pressure Position Blood Pressure Position [Right Arm] Sitting Pulse Oximetry 100 98 97 Oxygen Delivery Method Room Air Sepsis Recent Fever Within 48 Hours Sepsis New/Unexplained Change in Mental Status Sepsis Action Taken by Nursing 09/12/20 14:01 09/12/20 14:30 09/12/20 14:31 Temperature Temperature Source Pulse Rate 75 65 67 Pulse Rate [Apical] Pulse Rate from SpO2 Sensor 76 Pulse Rhythm Pulse Rhythm [Apical] Pulse Strength Respiratory Rate 17 11 L 22 Respiratory Effort / Characteristics Respiratory Depth Respiratory Pattern Blood Pressure 128/83 Blood Pressure [Right Arm] Blood Pressure Mean 98 Blood Pressure Mean [Right Arm] Blood Pressure Position Blood Pressure Position [Right Arm] Pulse Oximetry 98 Oxygen Delivery Method Sepsis Recent Fever Within 48 Hours Sepsis New/Unexplained Change in Mental Status Sepsis Action Taken by Nursing 09/12/20 15:09 Temperature Temperature Source Pulse Rate Pulse Rate [Apical] 71 Pulse Rate from SpO2 Sensor Pulse Rhythm Pulse Rhythm [Apical] Pulse Strength Respiratory Rate 18 Respiratory Effort / Characteristics Non-Labored Spontaneous Respiratory Depth Normal Respiratory Pattern Regular Blood Pressure Blood Pressure [Right Arm] 115/65 Blood Pressure Mean Blood Pressure Mean [Right Arm] 81 Blood Pressure Position Blood Pressure Position [Right Arm] Lying Pulse Oximetry 94 Oxygen Delivery Method Room Air Sepsis Recent Fever Within 48 Hours Sepsis New/Unexplained Change in Mental Status Sepsis Action Taken by Nursing Laboratory Data Result diagrams: 09/12/20 13:05 09/12/20 13:05 Lab Results 09/12/20 09/12/20 09/12/20 Range/Units 13:05 13:05 17:16 WBC 8.50 (4.8-10.8) K/uL RBC 4.72 (4.7-6.1) M/uL Hgb 13.9 L (14.0-18.0) g/dL Hct 41.6 L (42-52) % MCV 88.1 (80-100) fL MCH 29.4 (25-34) pg MCHC 33.4 (32-36) g/dL RDW Std Deviation 41.8 (36.4-46.3) fL RDW Coeff of Carlos 12.8 (11.5-14.5) % Plt Count 230 (130-400) K/uL MPV 10.7 H (7.4-10.4) fL Immature Gran % (Auto) 0.1 % Neut % (Auto) 77.7 % Lymph % (Auto) 16.0 % Coffee % (Auto) 4.7 % Eos % (Auto) 1.3 % Baso % (Auto) 0.2 % Neut # (Auto) 6.60 H (1.4-6.5) K/uL Lymph # (Auto) 1.36 (1.2-3.4) K/uL Coffee # (Auto) 0.40 (0.11-0.59) K/uL Eos # (Auto) 0.11 (0-0.5) K/uL Baso # (Auto) 0.02 (0-0.2) K/uL Immature Gran # (Auto) 0.01 (0.00-0.02) K/uL Sodium 140 (136-145) mmol/L Potassium 3.9 (3.5-5.1) mmol/L Chloride 107 (98-107) mmol/L Carbon Dioxide 28 (21-32) mmol/L Anion Gap 5.0 (3-11) BUN 8 (7-18) mg/dl Creatinine 0.84 (0.6-1.4) mg/dl Est Cr Clr Drug Dosing 144.0 ml/min Est GFR ( Amer) 142.0 Est GFR (Non-Af Amer) 122.6 BUN/Creatinine Ratio 9.6 L (10-20) Glucose 172 H (70-99) mg/dl Calcium 9.5 (8.5-10.1) mg/dl Total Bilirubin 0.6 (0.2-1) mg/dl AST 8 L (15-37) U/L ALT 17 (12-78) U/L Alkaline Phosphatase 79 (45-117) U/L Total Protein 7.7 (6.4-8.2) gm/dl Albumin 4.4 (3.4-5.0) gm/dl Globulin 3.3 (2.5-4.0) gm/dl Albumin/Globulin Ratio 1.4 (0.9-2) Lipase 47 L (73-393) U/L COVID-19 Eval [facility] SARS-CoV-2, RNA, NAAT (NEGATIVE) 09/12/20 Range/Units 17:16 WBC (4.8-10.8) K/uL RBC (4.7-6.1) M/uL Hgb (14.0-18.0) g/dL Hct (42-52) % MCV (80-100) fL MCH (25-34) pg MCHC (32-36) g/dL RDW Std Deviation (36.4-46.3) fL RDW Coeff of Carlos (11.5-14.5) % Plt Count (130-400) K/uL MPV (7.4-10.4) fL Immature Gran % (Auto) % Neut % (Auto) % Lymph % (Auto) % Coffee % (Auto) % Eos % (Auto) % Baso % (Auto) % Neut # (Auto) (1.4-6.5) K/uL Lymph # (Auto) (1.2-3.4) K/uL Coffee # (Auto) (0.11-0.59) K/uL Eos # (Auto) (0-0.5) K/uL Baso # (Auto) (0-0.2) K/uL Immature Gran # (Auto) (0.00-0.02) K/uL Sodium (136-145) mmol/L Potassium (3.5-5.1) mmol/L Chloride (98-107) mmol/L Carbon Dioxide (21-32) mmol/L Anion Gap (3-11) BUN (7-18) mg/dl Creatinine (0.6-1.4) mg/dl Est Cr Clr Drug Dosing ml/min Est GFR ( Amer) Est GFR (Non-Af Amer) BUN/Creatinine Ratio (10-20) Glucose (70-99) mg/dl Calcium (8.5-10.1) mg/dl Total Bilirubin (0.2-1) mg/dl AST (15-37) U/L ALT (12-78) U/L Alkaline Phosphatase (45-117) U/L Total Protein (6.4-8.2) gm/dl Albumin (3.4-5.0) gm/dl Globulin (2.5-4.0) gm/dl Albumin/Globulin Ratio (0.9-2) Lipase (73-393) U/L COVID-19 Eval Order SARS-CoV-2, RNA, NAAT NEGATIVE (NEGATIVE) Administered Medications Discontinued Medications Diphenhydramine HCl (Diphenhydramine 50 Mg/Ml Vial) 50 mg IV NOW STA Stop: 09/12/20 13:30 Last Admin: 09/12/20 13:49 Dose: 50 mg Documented by: [id number] Sodium Chloride (Nss 1000ml) 1,000 mls @ 999 mls/hr IV .Q1H1M STA Stop: 09/12/20 14:00 Last Infusion: 09/12/20 14:19 Dose: 0 mls/hr Documented by: [id number] Admin: 09/12/20 13:05 Dose: 999 mls/hr Documented by: [id number] Lorazepam (Ativan) 1 mg in 2 mls @ 2 mls/min IV NOW STA Stop: 09/12/20 13:30 Last Admin: 09/12/20 13:48 Dose: 2 mls/min Documented by: [id number] Promethazine HCl (Phenergan) 25 mg in 51 mls @ 204 mls/hr IV NOW STA Stop: 09/12/20 14:54 Last Infusion: 09/12/20 15:30 Dose: 0 mls/hr Documented by: [id number] Admin: 09/12/20 15:08 Dose: 204 mls/hr Documented by: [id number] Lorazepam (Ativan) 1 mg in 2 mls @ 2 mls/min IV NOW STA Stop: 09/12/20 14:41 Last Admin: 09/12/20 15:08 Dose: 2 mls/min Documented by: [id number] Sodium Chloride (Nss 1000ml) 500 mls @ 999 mls/hr IV .Q31M ONE Stop: 09/12/20 15:10 Last Infusion: 09/12/20 15:42 Dose: 0 mls/hr Documented by: [id number] Admin: 09/12/20 15:08 Dose: 999 mls/hr Documented by: [id number] Prochlorperazine (Compazine) 1 mls @ 1 mls/min IV ONE ONE Stop: 09/12/20 16:42 Last Admin: 09/12/20 17:13 Dose: 1 mls/min Documented by: [id number] Metoclopramide HCl (Metoclopramide Hcl Inj 5 Mg/Ml 2 Ml Vial) 10 mg IV NOW STA Stop: 09/12/20 13:30 Last Admin: 09/12/20 13:48 Dose: 10 mg Documented by: [id number] Ondansetron HCl (Ondansetron Inj 2 Mg/Ml 2 Ml Vial) 4 mg IV NOW STA Stop: 09/12/20 13:01 Last Admin: 09/12/20 13:06 Dose: 4 mg Documented by: [id number] Discharge Plan Visit Data Chief Complaint: Vomiting Stated Complaint: VOMITING ED Provider: Vicente Wood Discharge Problem: Intractable vomiting with nausea, Type I diabetes mellitus Forms Stand Alone Forms: [facility] Prescriptions Prescriptions: No Action diphenhydramine HCl [Benadryl] 25 mg Capsule 25 mg PO HS PRN (Reason: Sleep) RF: 0 methadone 10 mg/mL Concentrate 10 mg PO DAILY RF: 0 insulin lispro [Humalog U-100 Insulin] 100 unit/mL Solution 1 sliding scale dose SUBCUT USEASDIRECTD RF: 0 melatonin 5 mg Tablet 5 mg PO HS RF: 0 promethazine 25 mg tablet 25 mg PO TID PRN (Reason: nausea) RF: 0 ondansetron 4 mg tablet,disintegrating 4 mg PO TID PRN (Reason: Nausea) RF: 0 promethazine 25 mg suppository 25 mg MD Q6H PRN (Reason: sedation) Qty: 12 RF: 0 metoclopramide HCl [Reglan] 10 mg tablet 10 mg PO Q6H PRN (Reason: nausea and vomiting) Qty: 10 RF: 2 glucagon 3 mg/actuation spray,non-aerosol 3 mg INTNAS ONCE PRN (Reason: Hypoglycemia) RF: 0
--- NOTE | 2020-09-12 18:54 | History & Physical Report ---
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 Intractable nausea/vomiting: - Differentials include cannabinoid hyperemesis syndrome, cyclic vomiting 2/2 gastroparesis, other GI cause. - Orders placed for Zofran, promethazine, Reglan, diphenhydramine, capsaicin as needed for nausea and vomiting. - Will run NSS w/ KCl 20 mEq @150cc/hr while NPO. - Allow ice chips, sips, meds as tolerated. - BMP in morning to assess electrolytes given vomiting. DM1: - Patient with history DM1 with insulin pump that he manages. - Reports no changes in BSG over the last several days, no changes in home medications, no recent illnesses. - A1c in July of 7.1, stable. - Euglycemic DKA less likely in this patient given repeat admissions for similar symptoms 2/2 hyperemesis and gastroparesis, as well as normal anion gap. - Given that insulin pump is non-functional, have ordered glycemic management consult to manage insulin. Prior heroin abuse with chronic methadone use: - Patient with history of heroin abuse, now established with methadone clinic. - MAR states 10mg methadone daily. - Day team / pharmacy will call patient's methadone clinic to confirm methadone dosing prior to giving dose tomorrow morning. CODE STATUS: Full code FEN GI: N.p.o. with chips and sips as tolerated, NSS w/ KCl 20 mEq @150cc/hr DVT prophylaxis: Patient is at low risk given age and ability to ambulate as tolerated, SCDs while in bed and ad roni on demand Dispo: Admit to observation on [facility] floor for IV fluids, anti-nausea medications (2) Methadone dependence: (3) Type I diabetes mellitus: History of Present Illness Chief Complaint: intractable nausea and vomiting Primary Care Provider: Oneil Tinajero MD 25 yo M Hx DM1 and suspected gastroparesis, prior heroin abuse on chronic methadone therapy, marijuana use disorder presented for intractable nausea and vomiting despite home medications for such.he does not endorse associated chest pain, shortness of breath, abdominal pain, changes in stool habits. Has a history of several admissions for the same in the past, thought to be secondary to gastroparesis versus cannabinoid hyperemesis syndrome. In the ER patient was noted to have elevated BSG to 170, no leukocytosis or electrolyte abnormality, normal anion gap, normal lipase, COVID-19 testing negative. No diagnostic imaging was performed. On interview patient appears tired and will answer questions after being woken up several times. He endorses no nausea at time of interview after receiving several IV medications in the ER. Symptoms started this morning at 10 AM denied marijuana use today, but reports using about 3 times a week. Per EMR methadone dose is 10 mg daily. Denies any agitation, anxiety, tremor, visual or auditory hallucinations. Has not missed any of his home medications. On arrival up to the floor patient admits that his insulin pump battery is , unsure for how long. Allergies Allergy/AdvReac Type Severity Reaction Status Date / Time Cephalosporins Allergy Intermediate Hives Verified 09/12/20 14:12 Sulfa (Sulfonamide Allergy Intermediate Hives Verified 09/12/20 14:12 Antibiotics) azithromycin [From Zithromax] AdvReac Intermediate Hives Verified 09/12/20 14:12 Home Medications Medication Instructions Recorded Confirmed Type glucagon 3 mg INTNAS ONCE PRN 01/26/20 09/12/20 History diphenhydramine HCl [Benadryl] 25 mg PO HS PRN 05/15/20 09/12/20 History insulin lispro [Humalog U-100 1 sliding scale dose SUBCUT 05/15/20 09/12/20 History Insulin] USEASDIRECTD melatonin 5 mg PO HS 05/15/20 09/12/20 History methadone 10 mg PO DAILY 05/15/20 09/12/20 History ondansetron 4 mg PO TID PRN 06/01/20 09/12/20 History promethazine 25 mg PO TID PRN 06/01/20 09/12/20 History promethazine 25 mg SC Q6H PRN #12 ea 06/01/20 09/12/20 Rx metoclopramide HCl [Reglan] 10 mg PO Q6H PRN #10 tab 07/27/20 09/12/20 Rx Past Med/Surg History Medical History Anemia Cyclic vomiting syndrome Diabetes Gastroparesis Hepatitis History of opioid abuse Pneumomediastinum Soft tissue abscess Surgical History No pertinent past surgical history Family History Other Cancer Diabetes Heart disease Hypertension Social History Smoking Status: Unknown if ever smoked Cigarettes Per Day: 10 cigarettes per day; Second Hand Exposure: No; Hx Alcohol Use: No Hx Substance Use: Yes Prescribed Medications: Marijuana Last Used Substance: Hours (ago) Last Used Substance Other:: Last use of MJ was 2 weeks ago Substance Use Type Other:: heroin Preferred Language: Mongolian Communication Ability: Effective 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 Beliefs That Will Affect Care: None marital status: Single Current Living Situation: Parent Feels Safe at Home: Yes Safety Concerns: Feels Safe At This Time Assistive Devices: None Review of Systems Review of Systems: All systems reviewed & are unremarkable except as noted in HPI & below no fever, no chills and no malaise no cough and no dyspnea no chest pain, no palpitations and no edema + nausea and + vomiting; no abdominal pain, no constipation and no diar mirela/loose stools Physical Exam Physical Exam: Constitutional: well developed and + thin Eyes: PERRL, conjunctivae normal, anicteric sclerae ENMT: external ear and nose normal, oropharynx normal Neck: normal visual inspection Respiratory: normal respiratory effort, lungs clear to auscultation Cardiovascular: RRR, no murmur, no edema Gastrointestinal (Abdomen): normal bowel sounds, soft, nontender, no hepatosplenomegaly Musculoskeletal: no cyanosis or clubbing Skin: no rashes, warm and dry Neurologic: AAOx3, normal speech. Moves all extremities. No tremor. Psychiatric: A+Ox3, tired affect Results & Data Results & Data ([facility]) Vital Signs (Past 12 Hours) Vital Signs Temp Pulse Pulse Resp BP BP Pulse Ox 09/12/20 15:09 71 18 115/65 94 09/12/20 14:31 67 22 09/12/20 14:30 65 11 L 128/83 09/12/20 14:01 75 17 98 09/12/20 14:00 69 16 140/81 97 09/12/20 13:57 66 15 98 09/12/20 13:50 89 15 128/84 100 09/12/20 13:48 67 16 128/84 98 09/12/20 12:54 36.7 C 67 18 137/83 99 Code Status & VTE Plan VTE Prophylaxis Plan VTE Prophylaxis will be ordered: Yes Supervising Physician Co-Signing Physician Notes I personally saw and examined the patient. I verified all gonzales points and agree with Resident Physician Dr Jaclyn Burnett with the following exceptions and/or additions: 25 year old male well known to this service with gastroparesis and recurrent intractable nausea and vomiting. O/E Ill appearing, HS tachycardia with regular rhythm, chest clear to auscultation bilaterally, abdomen with generalized tenderness and hypoactive bowel sounds A/P Intractable nausea and vomiting - suspected gastroparesis. Continue ondansetron/promethazine/metoclopramide/diphenhydramine and capsaicin cream for nausea and vomiting. Rehydrate with IV fluids as above. Type 1 diabetes mellitus -consult pharmacy glycemic control Resident Activity Tracking Resident Involvement: Resident Care Provided Care Provided: Adult Hospital Medicine
[2020-09-12] MEDS: POTASSIUM CHLORIDE 20 MEQ in SODIUM CHLORIDE 0.9% 1000ML 1,000 ML IV SCH (19:15)
[2020-09-12] MEDS ORDERED: DEXTROSE 50% 50 ML SYRINGE IV PRN (20:02)
[2020-09-12] MEDS ORDERED: GLUCOSE 10 TABS/TUBE PO PRN (20:02)
[2020-09-12] MEDS ORDERED: CARBOHYDRATES FOR HYPOGLYCEMIA PO PRN (20:02)
[2020-09-12] MEDS ORDERED: ONDANSETRON INJ 2 MG/ML 2 ML VIAL IV PRN (20:02)
[2020-09-12] MEDS ORDERED: diphenhydrAMINE Capsule 25 MG CAP PO PRN (20:02)
[2020-09-12] MEDS ORDERED: GLUCOSE 40% GEL 15 GM TUBE PO PRN (20:02)
[2020-09-12] MEDS ORDERED: GLUCAGON FOR INJ 1 MG VIAL SQ PRN (20:02)
[2020-09-12] MEDS ORDERED: METOCLOPRAMIDE HCL INJ 5 MG/ML 2 ML VIAL IV PRN (20:02)
[2020-09-12] MEDS ORDERED: CAPSAICIN CR 0.075% 60 GM TUBE EXT PRN (20:02)
[2020-09-12] MEDS ORDERED: PROMETHAZINE HCL 25 MG SUPP PR PRN (20:02)
[2020-09-12] MEDS ORDERED: METOCLOPRAMIDE HCL INJ 5 MG/ML 2 ML VIAL ONE (20:33)
[2020-09-12] MEDS: MELATONIN 3 MG TAB PO SCH (21:03)
[2020-09-12] MEDS ORDERED: PHARMACY GLYCEMIC MGMT CONSULT PRN (21:04)
[2020-09-12] MEDS ORDERED: INSULIN GLARGINE SOLOSTAR 100 UNITS/ML 3 ML PEN SC ONE (21:15)
[2020-09-12] MEDS ORDERED: INSULIN ASPART 100 UNITS/ML 3 ML PEN SC SCH (21:15)
[2020-09-12 21:47] LABS: Appearance Urine Clear (Clear); Bilirubin Urine Negative (Negative); Blood Urine Negative (Negative); Color Urine Yellow; Glucose Urine UA 3+ (Negative); Ketones Urine 3+ (Negative); Leukocyte Esterase Urine Negative (Negative); Nitrite Urine Negative (Negative); Protein Urine Negative (Negative); Specific Gravity Urine 1.024 (1.000-1.030); Urobilinogen Urine Negative (Negative); pH Urine 5.5 (4.5-7.5)
[2020-09-13] MEDS: INSULIN ASPART 100 UNITS/ML 3 ML PEN SC SCH ×6 (00:39→21:17)
[2020-09-13] MEDS ORDERED: INSULIN ASPART 100 UNITS/ML 3 ML PEN SC SCH (02:00)
[2020-09-13] MEDS: POTASSIUM CHLORIDE 20 MEQ in SODIUM CHLORIDE 0.9% 1000ML 1,000 ML IV SCH ×3 (03:30→10:24)
[2020-09-13] MEDS ORDERED: INSULIN HUMAN REGULAR PER UNIT 4 UNITS in SYRINGE 3.96 ML IV ONE (06:15)
[2020-09-13] MEDS ORDERED: INSULIN ASPART 100 UNITS/ML 3 ML PEN SC ONE (09:30)
[2020-09-13] MEDS: METHADONE HCL 10 MG TAB PO SCH (09:48)
--- NOTE | 2020-09-13 10:07 | Electrocardiogram Report ---
Test Reason : Blood Pressure : / mmHG Vent. Rate : 106 BPM Atrial Rate : 106 BPM P-R Int : 144 ms QRS Dur : 100 ms QT Int : 364 ms P-R-T Axes : 073 073 070 degrees QTc Int : 483 ms Sinus tachycardia Possible Left atrial enlargement RSR' or QR pattern in V1 suggests right ventricular conduction delay Borderline ECG When compared with ECG of 27-JUL-2020 18:19, No significant change was found Confirmed by Aki Green ([id number]) on 09/13/2020 10:07:23 AM Referred By: REFERRED SELF Confirmed By:Aki Green
--- NOTE | 2020-09-13 10:57 | Billing Data ---
Date of Service September 12, 2020 Coding Level of Care Code 81206 OBS Care - Level 2
--- NOTE | 2020-09-13 11:17 | Hospitalist Progress Note ---
Date of Service September 13, 2020 Assessment & Plan (1) Intractable vomiting with nausea: 25yo male with PMH of T1DM, opiate use disorder on methadone maintenance therapy, chronic cannabis use, and presumed gastroparesis who presents with a 1- day history of nausea and vomiting. Stable and improving. Differential includes cannabinoid hyperemesis syndrome, opiate withdrawal, diabetic gastroparesis, and others; etiology is likely a combination of some or all of these rather than one. Symptoms began four days after a reduction in methadone dose from 12mg daily to 10mg daily, suggesting opiate withdrawal as a potential cause or trigger. 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 Patient uses cannabis recreationally about three times per week at this time. While patient has had few-month periods of cannabis abstinence in the 2-3 years since his first hyperemetic episode, he was also in the middle of a methadone taper at that time, and so the occurrence of episodes at this time does not rule out CHS. Gastroparesis is frequently mentioned throughout patient's records as a presumed or definitive diagnosis, and this diagnosis is supported by a gastric motility study in September 2018 showing delayed gastric emptying, as well as patient's longstanding T1DM (since age 14) which is both a risk factor and pathogenic mechanism for gastroparesis. However, gastroparesis is unlikely as a unifying diagnosis for patient's symptoms because, during the [id number] between patient's hyperemetic episodes, he reports being able to tolerate normal-sized meals without symptoms, which suggests normal gastric emptying during those times. Additionally, he reports occasionally waking up with nausea despite not having eaten anything for 12+ hours, with the prior day having been nausea-free. Cannabinoid hyperemesis syndrome can cause (but does not always cause) episodic slowing of gastric emptying whenever THC is in the bloodstream; this is a plausible explanation for the intermittent nature of his symptoms as well as the results of his 09/2018 gastric motility study. I suspect patient's symptoms are primarily related to cannabinoid hyperemesis syndrome as well as opiate withdrawal, which he has been experiencing to some degree since 2018 (when he had his first hyperemetic episode) as a consequence of his ongoing down-taper of methadone maintenance therapy. I spoke with patient today at length about these factors, and explained my opinion that he is likely to benefit from complete abstinence from cannabis, likely to benefit from a slower or more gradual methadone taper, and might be able to anticipate hyperemetic episodes as he continues his methadone taper. His questions were answered to his satisfaction, and he voiced understanding of my recommendations. He voiced his intention to give these interventions a try, though he notes he plans to delay cannabis cessation until after his methadone taper is complete, as he anticipates quitting both at the same time would be overwhelming. I counseled patient on available medical and community resources in the event he would like assistance with any of the above. Nausea, vomiting -symptoms improving -c/w current antiemetic regimen -zofran 8mg IV q8h prn -reglan 10mg IV q6h prn -phenergan 25mg [place] q6h prn -topical capsaicin applied to abdomen q8h prn -benadryl 25mg PO qhs -consider ativan if symptoms worsen, as this has been shown to be particularly effective for nausea 2/2 CHS -c/w NSS + KCl 20mEq at 150mL/hr, will consider discontinuing IVF when patient is consistently tolerating PO -consider ativan if symptoms worsen, as this has been shown to be particularly effective for nausea 2/2 CHS -advance T1DM diet as tolerated -counseling provided as above -possible discharge today if tolerating PO for a few hours without symptoms -if symptoms recur, consider IVF, magnesium repletion as below, and morning BMP Opiate use disorder, methadone maintenance therapy -stable -c/w methadone 10mg daily -f/u outpatient -taper adjustments recommended as above T1DM -fluctuating control acutely given unpredictable PO intake -unclear situation prior to arrival, as patient reports his insulin pump battery and is unsure of when -carb counting/T1DM diet, advance as tolerated -c/w ISS; glycemic consult placed for nuanced glucose control -electrolytes wnl, not in DKA now nor on arrival -continue to monitor Hypomagnesemia -1.6 today -tolerating PO; repletion not currently indicated -will replete prn if nausea/vomiting return FENGI: T1DM diet, advance as tolerated DVT ppx: not indicated; encourage ambulation Isolation: none Consults: none Held home meds: none Code status: full code Dispo: observation Admission and Anticipated Discharge Date Admission Date: September 12, 2020 Supervising Physician Co-Signing Physician Notes I personally examined the patient and verified all gonzales points of history and exam, discussed case, and agree with decision making with Dr Hernandez. Feeling better, ate some of dinner. Resting comfortably. Vitals noted, in general he is fatigued but appears to be in no overt distress. HEENT normocephalic atraumatic mucous membranes moist. Breathing unlabored no accessory muscle use good effort. Skin shows no rashes no pallor or icterus. Intractable nausea and vomitingagree with Dr. Hernandez's assessment that it is not overtly, clearly straightforward, purely diabetic gastroparesis. There is highly likely a degree of narcotic withdrawal and cannabis hyperemesis at playand both of these could easily cloud findings on a gastric emptying study, or he could also have a degree of diabetic gastroparesis on top of all of the above. Doing better now. Follow into tomorrow to ensure that he does not suddenly worsen. Otherwise as above. Type 1 diabetescontinue pharmacy glycemic control, home on insulin pump, his A1c most recently is 7.1 about 6 weeks ago otherwise as above Subjective Patient seen at bedside this morning and again this afternoon. Feels "great" as of 3:30pm. Nausea is minimal and has not vomited since 2am. Tolerating small a mount of solids and liquids PO without worsened symptoms. No fever, chills, sweating, diarrhea, or other symptoms. Physical Exam Constitutional: well developed; no acute distress Respiratory: normal respiratory effort, lungs clear to auscultation Cardiovascular: RRR, no murmur, no edema Gastrointestinal (Abdomen): Inspection/Auscultation: abdomen normal to inspection; abdomen not distended Percussion/Palpation: abdomen soft; abdomen nontender, no guarding and abdomen not rigid Results & Data Results & Data ([facility]) Vital Signs (Past 12 Hours) Vital Signs Temp Pulse Pulse Resp BP Pulse Ox 09/13/20 07:34 36.7 C 100 H 16 107/62 98 09/13/20 00:05 37.3 C 108 H 22 93/42 L 98 09/12/20 23:21 37.6 C H 109 H 22 109/68 100 Resident Activity Tracking Resident Involvement: Resident Care Provided Care Provided: Adult [facility]
--- NOTE | 2020-09-13 12:00 | Pharmacy Report ---
Pharmacy Glycemic Short Note 2 - Date of Service September 13, 2020 - Glycemic Short BSG Results (Last 24 hours): 09/12/20 09/12/20 09/12/20 13:05 19:13 19:54 Glucose 172 H POC Glucose 326 H* 323 H* 09/13/20 09/13/20 09/13/20 00:11 05:53 08:56 Glucose POC Glucose 304 H* 387 H* 275 H OUTPATIENT ANTIDIABETIC REGIMEN: * Insulin pump * Basal rate 26units/day * CF 30 for BSG > 150mg/dl ASSESSMENT: * 25 yo M Hx DM1 with insulin pump and suspected gastroparesis, prior heroin abuse now on chronic methadone, marijuana abuse presents for intractable nausea and vomiting despite home medications, intolerant of PO in the ER despite several anti-emetics. * Hyperglycemic, started on 22 units of basal last night and 4 units of IV given this AM for BSG 387mg/dl * Blood sugars slowly improving with SQ and IV bolus doses, patient remains NPO * Tighten CF and CR further and follow BSGs closely, consider insulin drip if BSGs remain elevated PLAN FOR INPATIENT GLYCEMIC CONTROL: * Hold outpatient insulin pump * Basal insulin * Lantus 22 units SQ daily * Bolus insulin * NovoLog per scale ACHS or Q6hrs while NPO * Goal Range: Low 110 mg/dL - High 140 mg/dL * Correction Factor: 25 mg/dL/unit * Nutritional / Prandial insulin per carb ratio of 1 unit per 8 grams CHO consumed PLAN FOR DISCHARGE: * TBD
[2020-09-13] MEDS: INSULIN GLARGINE SOLOSTAR 100 UNITS/ML 3 ML PEN SC SCH (12:28)
[2020-09-13] MEDS: NSS + 20MEQ KCL 20 MEQ/1,000 ML BAG IV SCH ×2 (16:39→23:24)
--- NOTE | 2020-09-13 17:56 | Billing Data ---
Date of Service September 13, 2020 Coding Level of Care Code 83073 Subseq Obs Care Lvl 3
[2020-09-13] MEDS: MELATONIN 3 MG TAB PO SCH (21:17)
[2020-09-14] MEDS: NSS + 20MEQ KCL 20 MEQ/1,000 ML BAG IV SCH (06:17)
[2020-09-14] MEDS: INSULIN GLARGINE SOLOSTAR 100 UNITS/ML 3 ML PEN SC SCH (09:04)
[2020-09-14] MEDS: INSULIN ASPART 100 UNITS/ML 3 ML PEN SC SCH (09:05)
[2020-09-14] MEDS: METHADONE HCL 10 MG TAB PO SCH (09:05)
--- NOTE | 2020-09-14 16:59 | Discharge Summary ---
Date of Service September 14, 2020 Admission HPI Per Admitting Provider 25 yo M Hx DM1 and suspected gastroparesis, prior heroin abuse on chronic methadone therapy, marijuana use disorder presented for intractable nausea and vomiting despite home medications for such.he does not endorse associated chest pain, shortness of breath, abdominal pain, changes in stool habits. Has a history of several admissions for the same in the past, thought to be secondary to gastroparesis versus cannabinoid hyperemesis syndrome. In the ER patient was noted to have elevated BSG to 170, no leukocytosis or electrolyte abnormality, normal anion gap, normal lipase, COVID-19 testing negative. No diagnostic imaging was performed. On interview patient appears tired and will answer questions after being woken up several times. He endorses no nausea at time of interview after receiving several IV medications in the ER. Symptoms started this morning at 10 AM denied marijuana use today, but reports using about 3 times a week. Per EMR methadone dose is 10 mg daily. Denies any agitation, anxiety, tremor, visual or auditory hallucinations. Has not missed any of his home medications. On arrival up to the floor patient admits that his insulin pump battery is , unsure for how long. Admission Exam Per Admitting Provider Constitutional: well developed and + thin Eyes: PERRL, conjunctivae normal, anicteric sclerae ENMT: external ear and nose normal, oropharynx normal Neck: normal visual inspection Respiratory: normal respiratory effort, lungs clear to auscultation Cardiovascular: RRR, no murmur, no edema Gastrointestinal (Abdomen): normal bowel sounds, soft, nontender, no hepatosplenomegaly Musculoskeletal: no cyanosis or clubbing Skin: no rashes, warm and dry Neurologic: AAOx3, normal speech. Moves all extremities. No tremor. Psychiatric: A+Ox3, tired affect Principal Diagnosis intractable nausea and vomiting Discharge Exam Awake in bed, no acute distress. NCAT, poorly groomed. Mucous membranes moist. CV: regular rhythm, no murmur appreciated, extremities well-perfused Resp: CTABL Abd: soft, nontender, nondistended, BS normoactive Psych: euthymic, pleasant, cooperative, appropriately engaged in interview Discharge Data Allergies Allergy/AdvReac Type Severity Reaction Status Date / Time Cephalosporins Allergy Intermediate Hives Verified 09/15/20 10:30 Sulfa (Sulfonamide Allergy Intermediate Hives Verified 09/15/20 10:30 Antibiotics) azithromycin [From Zithromax] AdvReac Intermediate Hives Verified 09/15/20 10:30 Consultations 09/12/20 16:43 ED Decision to Admit Stat Hospital Course (1) Intractable vomiting with nausea: Patient was admitted for intractable nausea and vomiting, and inability to tolerate PO. Electrolytes were wnl and patient was not in DKA upon arrival. Symptoms were felt to be due multiple factors including probable cannabinoid hyperemesis syndrome given chronic (since age 14) as well as recent cannabis use, some degree of opiate withdrawal given patient's maintenance methadone dose had been tapered down from 12mg to 10mg a few days prior to admission, and possible gastroparesis (slowed gastric emptying seen on GI motility study in 09/2018). Patient was treated with a combination of antiemetics including zofran, phenergan, reglan, and capsaicin cream (which improves his symptoms when applied topically to the abdomen). Patient's nausea and vomiting subsided rather quickly, and by hospital day two, patient felt well enough to go home. Patient was encouraged to stay to monitor symptom recurrence and assure PO tolerance for an additioal day, which he agreed to. Patient was engaged in extensive discussion regarding the etiology of his symptoms in an effort to help him understand his symptoms are unlikely to resolve without complete abstinence from cannabis use. He voiced understanding and expressed intent to try cutting back or quitting. Patient was discharged on hospital day three after a full 24 hours without symptoms and having demonstrated reassuring PO tolerance. No additional medications were added on top of his preexisting home antiemetics, insulin regimen, and other home meds. Total Time Total Time Spent Total Time Spent (In Minutes): Less than 30 Discharge Plan Discharge Items Patient Disposition: Home - Self-Care Reason For Visit: VOMITING Discharge Diagnosis: Intractable nausea and vomiting Activity: Resume your previous activity Non-emergency contact: Primary Care Provider and Retail Merchandiser Call non-emergency contact if: you have any medication questions, your symptoms worsen and you have a fever Follow-up/Referrals: Oneil Tinajero MD [Primary Care Provider] - Diet: Carb Count or DM1 Addtl Attending Provider Instructions: You were admitted for nausea and vomiting. You were treated with IV fluids and anti-nausea medication, and your symptoms resolved. We reviewed prior records to investigate the cause of your nausea and vomiting, and discussed with you. Cannabis use, opiate withdrawal as a result of tapering down on your methadone maintenance dose, and possible gastroparesis are all likely contributing factors to your episodes of nausea or vomiting. For these reasons, you are likely to benefit from complete abstinence from cannabis and a slower methadone taper. You also might be able to anticipate increased nausea and vomiting each time you reduce your methadone maintenance dose. We highly recommend complete abstinence from cannabis to prevent further episodes of nausea/vomiting, as well as for your overall health. Talk to your primary care physician about ways they can assist you with quitting. We also recommend you talk to your head of music and methadone prescriber about your ongoing symptoms to see how they can help. If you experience an episode of nausea/vomiting so severe that you cannot keep food or fluids down, call your primary care physician, or go to the nearest emergency department. Other reasons to seek medical attention include chest pain, shortness of breath, or nausea/vomiting associated with fever, chills, dizziness, lightheadedness, abdominal pain, or any other symptom that is concerning to you. Medications -If you experience further nausea/vomiting after returning home, you can continue the anti-nausea medicines you used at home prior to this hospital admission (reglan, phenergan, zofran). -Continue taking all your other home medications, including insulin and methadone, as prescribed. Thank you for allowing us to participate in your care. We wish you the best. Please reach out if you think of additional ways we can help. Pending Studies at Discharge: No Stand-Alone Forms: [facility], Smoking Cessation Medications and DC Order Prescriptions: Continued diphenhydramine HCl [Benadryl] 25 mg Capsule 25 mg PO HS PRN (Reason: Sleep) RF: 0 methadone 10 mg/mL Concentrate 10 mg PO DAILY RF: 0 insulin lispro [Humalog U-100 Insulin] 100 unit/mL Solution 1 sliding scale dose SUBCUT USEASDIRECTD RF: 0 melatonin 5 mg Tablet 5 mg PO HS RF: 0 promethazine 25 mg tablet 25 mg PO TID PRN (Reason: nausea) RF: 0 ondansetron 4 mg tablet,disintegrating 4 mg PO TID PRN (Reason: Nausea) RF: 0 promethazine 25 mg suppository 25 mg IN Q6H PRN (Reason: sedation) Qty: 12 RF: 0 metoclopramide HCl [Reglan] 10 mg tablet 10 mg PO Q6H PRN (Reason: nausea and vomiting) Qty: 10 RF: 2 glucagon 3 mg/actuation spray,non-aerosol 3 mg INTNAS ONCE PRN (Reason: Hypoglycemia) RF: 0 Discharge Orders: Discharge Order (Routine); Ordered 09/14/20 Ordered By: Luis Angel Mccarty/Other Patient Handouts: ED Vomiting (Adult) Admission Data Admit Date/Time: 09/12/20 17:55 Attending Provider: Jose Pat Admit Provider: Jaclyn Nobles Primary Care Provider: Oneil Tinajero Other Providers: Jon Miranda Other Interventions: Discharge Summary Assessment (RN) Last Done: 09/14/20 11:52 Supervising Physician Co-Signing Physician Notes I personally examined the patient and verified all gonzales points of history and exam, discussed case, and agree with decision making with Dr Hernandez. Continues to feel well, feels up to going home Vitals noted, in general he is fatigued but appears to be in no overt distress. HEENT normocephalic atraumatic mucous membranes moist. Breathing unlabored no accessory muscle use good effort. Skin shows no rashes no pallor or icterus. Intractable nausea and vomitingagree with Dr. Hernandez's assessment that it is not overtly, clearly straightforward, purely diabetic gastroparesis. There is highly likely a degree of narcotic withdrawal and cannabis hyperemesis at playand both of these could easily cloud findings on a gastric emptying study, or he could also have a degree of diabetic gastroparesis on top of all of the above. Doing better now. Stable for home, ongoing outpatient follow-up Type 1 diabetescontinue pharmacy glycemic control, home on insulin pump, his A1c most recently is 7.1 about 6 weeks ago otherwise as above Resident Activity Tracking Resident Involvement: Resident Care Provided Care Provided: Adult [facility]
--- NOTE | 2020-09-14 17:39 | Billing Data ---
Date of Service September 14, 2020 Coding Level of Care Code 21023 OBS Care - Discharge
[2020-09-15] MEDS ORDERED: INSULIN GLARGINE SOLOSTAR 100 UNITS/ML 3 ML PEN SC SCH (09:00)
== END 2020-09-14 12:47 | disposition home or self-care (01) ==
LOC: 3N 12:49 → ED 12:49 → SUATTDRO 17:55 → 3N 19:37

== ENCOUNTER 2020-09-15 09:27 | Observation (INO) ==
[2020-09-15] MEDS ORDERED: SODIUM CHLORIDE 0.9% 1000ML 2,000 ML IV ONE (09:45)
[2020-09-15] MEDS ORDERED: ONDANSETRON INJ 2 MG/ML 2 ML VIAL IV STA (09:45)
[2020-09-15] MEDS ORDERED: METOCLOPRAMIDE HCL INJ 5 MG/ML 2 ML VIAL IV STA (09:45)
--- NOTE | 2020-09-15 09:48 | Emergency Department Note ---
Impression & Plan Hematemesis, Acute hypokalemia, Elevated glucose ED Provider Note NAME: ANISH SINGH AGE: 25 SEX: M : 1995 ARRIVES VIA: Walk-In INFORMANT: Patient, ED PROVIDER(S): Jose Greene DO CHIEF COMPLAINT: Nausea and vomiting HPI: Patient is a 25-year-old male diabetic with history of gastroparesis, narcotic abuse currently methadone dependent, marijuana abuse who presents the ER for nausea and vomiting. He was discharged yesterday for the same symptoms. He went home and he was feeling better. He notes it restarted this morning at 7 AM. He is unable to keep anything down. Admits blood sugars have been fine. He has no belly pain. No previous belly surgeries. Denies any dysuria urgency or frequency. No headache or change in vision. No chest pain or shortness of breath. Denies any bright red blood in the vomit. He denies any dark stools or black stools or bright red blood in his stool. He notes this feels consistent with his previous bouts of gastroparesis. He gets these about once every other month. He was recently admitted and discharged yesterday. ROS: See above HPI for pertinent positives & negatives. A total of 10 systems reviewed and were otherwise negative. PAST MEDICAL HISTORY:See Below PAST SURGICAL HISTORY:See Below FAMILY HISTORY:See Below SOCIAL HISTORY:See Below HOME MEDICATIONS:See Below ALLERGIES:See Below VITALS:See Below PHYSICAL EXAMINATION: GENERAL: Sitting up in bed, alert, well appearing, well nourished, no distress, non-toxic EYE EXAM: normal conjunctiva. OROPHARYNX: no exudate, no erythema, lips, buccal mucosa, and tongue normal and mucous membranes are moist NECK: supple, no nuchal rigidity, no adenopathy, non-tender LUNGS: Clear to auscultation. Normal chest wall mechanics HEART: no murmurs, S1 normal and S2 normal ABDOMEN: abdomen soft, non-tender, normo-active bowel sounds, no masses, no rebound or guarding. BACK: Back is symmetrical on inspection and there is no deformity, no midline tenderness, no CVA tenderness. SKIN: no rashes and no bruising UPPER EXTREMITIES: upper extremities are grossly normal. LOWER EXTREMITIES: No pitting edema. NEURO EXAM: Normal sensorium, cranial nerves II-XII grossly intact, normal speech, no gross weakness of arms, no gross weakness of legs. MEDICAL DECISION MAKING: Patient is a 25-year-old male who presents the ER for vomiting. He was admitted and discharged yesterday. He had the same symptoms. He notes has been unable to keep anything down since this morning. Denies any headache or change in vision. No chest pain. IV was established blood work was obtained. Hemoglobin 12.5. No significant anemia. BMP with mild hypokalemia. LFTs bilirubin was unremarkable. Lipase was normal. Influenza was negative. He was given Protonix fluids Phenergan Zofran and Reglan. He still had persistent vomiting. He was discussed with the hospitalist for further evaluation. Triage Nursing notes reviewed. Limited review of prior medical records performed Vital Signs: reviewed and remarkable for no significant abnormalities Differential diagnosis: Differential diagnoses includes but is not limited to gastritis, peptic ulcer disease, GERD, gallbladder disease, pancreatitis, small bowel obstruction, acute coronary syndrome, pericarditis, ischemic bowel, irritable bowel disease, irritable bowel syndrome, appendicitis, diverticulitis, malignancy, hernia, urinary tract infection, torsion, perforation, trauma, infectious. ER treatment provided: See below Diagnostics interpreted by me: ECG: Sinus rhythm rate 60 Normal axis No PVCs QTC 414 T wave inversion in septal leads Cardiac Monitoring: An order was placed for continuous cardiac monitoring. The monitor shows a rate of 64 with sinus rhythm. Laboratory studies: As stated above and show below. Imaging studies: See below Consultation(s): Discussed with the hospitalist for further evaluation Procedures: none Critical Care: None Past Med/Surg History Medical History Anemia Cyclic vomiting syndrome Diabetes Gastroparesis Hepatitis History of opioid abuse Pneumomediastinum Soft tissue abscess Surgical History No pertinent past surgical history Family History Other Cancer Diabetes Heart disease Hypertension Social History Smoking Status: Never smoker Cigarettes Per Day: 10 cigarettes per day; Second Hand Exposure: No; Hx Alcohol Use: No Hx Substance Use: Yes Prescribed Medications: Marijuana Last Used Substance: Hours (ago) Last Used Substance Other:: Last use of MJ was 2 weeks ago Substance Use Type Other:: heroin Preferred Language: Egyptian Communication Ability: Effective Hospice Office Coordinator Required: No Beliefs That Will Affect Care: None marital status: Single Current Living Situation: Parent Other Information That Helps Us Care for You: Yes Feels Safe at Home: Yes Assistive Devices: None Allergies Allergies Allergy/AdvReac Type Severity Reaction Status Date / Time Cephalosporins Allergy Intermediate Hives Verified 09/15/20 10:30 Sulfa (Sulfonamide Allergy Intermediate Hives Verified 09/15/20 10:30 Antibiotics) azithromycin [From Zithromax] AdvReac Intermediate Hives Verified 09/15/20 10:30 Home Meds Home Medications Medication Instructions Recorded Confirmed glucagon 3 mg INTNAS ONCE PRN 01/26/20 09/15/20 diphenhydramine HCl [Benadryl] 25 mg PO HS PRN 05/15/20 09/15/20 insulin lispro [Humalog U-100 1 sliding scale dose SUBCUT 05/15/20 09/15/20 Insulin] USEASDIRECTD melatonin 5 mg PO HS 05/15/20 09/15/20 methadone 10 mg PO DAILY 05/15/20 09/15/20 ondansetron 4 mg PO TID PRN 06/01/20 09/15/20 promethazine 25 mg PO TID PRN 06/01/20 09/15/20 Previous Rx's Medication Instructions Recorded promethazine 25 mg [place] Q6H PRN #12 ea 06/01/20 metoclopramide HCl [Reglan] 10 mg PO Q6H PRN #10 tab 07/27/20 Results & Data (ED) Vital Signs Vital Signs - 24 hr 09/15/20 09:35 09/15/20 09:40 09/15/20 09:51 Temperature 36.7 C Temperature Source Temporal Artery Scan Oral Pulse Rate 68 59 L Pulse Rate from SpO2 Sensor 60 Respiratory Rate 16 Respiratory Effort / Characteristics Non-Labored Spontaneous Respiratory Depth Normal Blood Pressure 128/74 131/91 Blood Pressure Mean 92 104 Blood Pressure Position Sitting Pulse Oximetry 99 100 Oxygen Delivery Method Room Air Room Air Sepsis Recent Fever Within 48 Hours No Sepsis New/Unexplained Change in Mental Status No Sepsis Action Taken by Nursing No Action Required 09/15/20 09:54 09/15/20 10:00 09/15/20 10:30 Temperature Temperature Source Pulse Rate 62 81 Pulse Rate from SpO2 Sensor 62 Respiratory Rate 20 20 Respiratory Effort / Characteristics Respiratory Depth Blood Pressure 134/111 H 148/97 H Blood Pressure Mean 118 114 Blood Pressure Position Pulse Oximetry 100 Oxygen Delivery Method Sepsis Recent Fever Within 48 Hours Sepsis New/Unexplained Change in Mental Status Sepsis Action Taken by Nursing 09/15/20 11:16 09/15/20 11:30 09/15/20 12:00 Temperature Temperature Source Pulse Rate 80 Pulse Rate from SpO2 Sensor Respiratory Rate 20 Respiratory Effort / Characteristics Respiratory Depth Blood Pressure 140/92 146/92 H 144/93 H Blood Pressure Mean 108 110 110 Blood Pressure Position Pulse Oximetry 100 100 100 Oxygen Delivery Method Room Air Room Air Room Air Sepsis Recent Fever Within 48 Hours Sepsis New/Unexplained Change in Mental Status Sepsis Action Taken by Nursing 09/15/20 13:00 Temperature Temperature Source Pulse Rate Pulse Rate from SpO2 Sensor 72 Respiratory Rate Respiratory Effort / Characteristics Respiratory Depth Blood Pressure Blood Pressure Mean Blood Pressure Position Pulse Oximetry 100 Oxygen Delivery Method Sepsis Recent Fever Within 48 Hours Sepsis New/Unexplained Change in Mental Status Sepsis Action Taken by Nursing Laboratory Data Result diagrams: 09/15/20 10:00 09/15/20 10:00 Lab Results 09/15/20 09/15/20 Range/Units 10:00 10:00 WBC 6.51 (4.8-10.8) K/uL RBC 4.29 L (4.7-6.1) M/uL Hgb 12.5 L (14.0-18.0) g/dL Hct 38.0 L (42-52) % MCV 88.6 (80-100) fL MCH 29.1 (25-34) pg MCHC 32.9 (32-36) g/dL RDW Std Deviation 41.6 (36.4-46.3) fL RDW Coeff of Carlos 13.0 (11.5-14.5) % Plt Count 190 (130-400) K/uL MPV 10.2 (7.4-10.4) fL Immature Gran % (Auto) 0.0 % Neut % (Auto) 72.7 % Lymph % (Auto) 20.9 % [place] % (Auto) 4.9 % Eos % (Auto) 1.2 % Baso % (Auto) 0.3 % Neut # (Auto) 4.73 (1.4-6.5) K/uL Lymph # (Auto) 1.36 (1.2-3.4) K/uL [place] # (Auto) 0.32 (0.11-0.59) K/uL Eos # (Auto) 0.08 (0-0.5) K/uL Baso # (Auto) 0.02 (0-0.2) K/uL Immature Gran # (Auto) 0.00 (0.00-0.02) K/uL Sodium 140 (136-145) mmol/L Potassium 3.3 L (3.5-5.1) mmol/L Chloride 107 (98-107) mmol/L Carbon Dioxide 28 (21-32) mmol/L Anion Gap 5.0 (3-11) BUN 6 L (7-18) mg/dl Creatinine 0.95 (0.6-1.4) mg/dl Est Cr Clr Drug Dosing 136.5 ml/min Est GFR ( Amer) 129.3 Est GFR (Non-Af Amer) 111.6 BUN/Creatinine Ratio 6.7 L (10-20) Glucose 230 H (70-99) mg/dl Calcium 8.6 (8.5-10.1) mg/dl Total Bilirubin 0.4 (0.2-1) mg/dl AST 8 L (15-37) U/L ALT 17 (12-78) U/L Alkaline Phosphatase 66 (45-117) U/L Total Protein 6.8 (6.4-8.2) gm/dl Albumin 3.8 (3.4-5.0) gm/dl Globulin 3.0 (2.5-4.0) gm/dl Albumin/Globulin Ratio 1.3 (0.9-2) Lipase 66 L (73-393) U/L Administered Medications Discontinued Medications Sodium Chloride (Nss 1000ml) 2,000 mls @ 999 mls/hr IV .Q2H1M ONE Stop: 09/15/20 11:45 Last Infusion: 09/15/20 13:23 Dose: 0 mls/hr Documented by: [id number] Admin: 09/15/20 10:05 Dose: 999 mls/hr Documented by: [id number] Promethazine HCl (Phenergan) 25 mg in 51 mls @ 204 mls/hr IV NOW STA Stop: 09/15/20 12:32 Last Infusion: 09/15/20 13:36 Dose: 0 mls/hr Documented by: [id number] Admin: 09/15/20 13:21 Dose: 204 mls/hr Documented by: [id number] Pantoprazole Sodium 40 mg/ (Syringe) 10 mls @ 5 mls/min IV NOW ONE Stop: 09/15/20 12:33 Last Admin: 09/15/20 14:14 Dose: 5 mls/min Documented by: [id number] Lorazepam (Ativan) 0.25 mg in 0.5 mls @ 0.5 mls/min IV NOW STA Stop: 09/15/20 13:05 Last Admin: 09/15/20 13:21 Dose: 0.5 mls/min Documented by: [id number] Metoclopramide HCl (Metoclopramide Hcl Inj 5 Mg/Ml 2 Ml Vial) 10 mg IV NOW STA Stop: 09/15/20 09:46 Last Admin: 09/15/20 11:09 Dose: 10 mg Documented by: [id number] Ondansetron HCl (Ondansetron Inj 2 Mg/Ml 2 Ml Vial) 4 mg IV NOW STA Stop: 09/15/20 09:46 Last Admin: 09/15/20 11:09 Dose: 4 mg Documented by: [id number] Discharge Plan Visit Data Chief Complaint: Vomiting Stated Complaint: VOMITING,NAUSEA ED Provider: Jose Greene Discharge Problem: Hematemesis, Acute hypokalemia, Elevated glucose Patient Disposition: Admitted As Inpatient Discharge Instructions Interventions: ED Discharge Assessment Last Done: 09/15/20 15:41 Discharge Problem: Hematemesis Qualifiers: Nausea presence: with nausea Qualified Code(s): K92.0 - Hematemesis
[2020-09-15 10:16] LABS: Basophils # (auto) 0.02 K/uL (0-0.2); Basophils % (auto) 0.3 %; Eosinophils # (auto) 0.08 K/uL (0-0.5); Eosinophils % (auto) 1.2 %; Hemoglobin 12.5 g/dL (14.0-18.0); Lymphocytes # (auto) 1.36 K/uL (1.2-3.4); Lymphocytes % (auto) 20.9 %; Mean Corpuscular Hemoglobin 29.1 pg (25-34); Mean Corpuscular Hgb Conc 32.9 g/dL (32-36); Mean Corpuscular Volume 88.6 fL (80-100); Mean Platelet Volume 10.2 fL (7.4-10.4); Monocytes # (auto) 0.32 K/uL (0.11-0.59); Monocytes % (auto) 4.9 %; Neutrophils # (auto) 4.73 K/uL (1.4-6.5); Neutrophils % (auto) 72.7 %; Platelet Count 190 K/uL (130-400); RDW Standard Deviation 41.6 fL (36.4-46.3); Red Blood Count 4.29 M/uL (4.7-6.1); White Blood Count 6.51 K/uL (4.8-10.8)
[2020-09-15 11:00] LABS: Albumin Level 3.8 gm/dl (3.4-5.0); BUN Creatinine Ratio 6.7 (10-20); Calcium 8.6 mg/dl (8.5-10.1); Creatinine Clr Calc Pharmacy 136.5 ml/min; Est GFR (African American) 129.3; Est GFR (Non-African American) 111.6; Potassium 3.3 mmol/L (3.5-5.1)
[2020-09-15 11:03] LABS: Albumin Globulin Ratio 1.3 (0.9-2); Bilirubin,Total 0.4 mg/dl (0.2-1); Total Protein 6.8 gm/dl (6.4-8.2)
[2020-09-15] MEDS ORDERED: PROMETHAZINE 25 MG/51 ML BAG IV STA (12:18)
[2020-09-15] MEDS ORDERED: PANTOprazole 40 MG in SYRINGE 0 ML IV ONE (12:32)
--- NOTE | 2020-09-15 12:39 | History & Physical Report ---
Date of Service September 15, 2020 Assessment & Plan (1) Gastroparesis: Patient has gastroparesis in his records also influenced by cannabis hyperemesis syndrome. He is on frequent antiemetics and has been on as needed Reglan in the past. Patient with vomiting likely Daria-Souza tear will be on twice daily PPI he will be kept clear liquids possible gastroenterology consultation. Patient typically sees [place] [facility] done at [facility]. We will have consultation with the group in this area. For suggestions as the patient is now a readmission after less than 24 hours from discharge. This may be just a recommendation for medication changes were perhaps further diagnostic testing. (2) Methadone dependence: Previous opioid dependence now on maintenance methadone (3) Type I diabetes mellitus: Blood glucose elevated on admission will basal bolus insulin with sliding scale pharmacy glycemic management will be undertaken patient does not appear to be in DKA. He cannot answer me specifically regarding his glucose when he was home (4) Hypokalemia: Patient potassium repleted with intravenous fluids and magnesium will be checked in the morning (5) DVT prophylaxis: Early ambulation will be DVT prophylaxis History of Present Illness Primary Care Provider: Oneil Tinajero MD 25-year-old male diabetic with history of gastroparesis, narcotic abuse currently methadone dependent, marijuana abuse who presents the ER for nausea and vomiting. He states he has some bright red blood in his emesis. He went home 09/14/20 as he was feeling better. He denies any dark stools or black stools or bright red blood in his stool. He notes this feels consistent with his previous bouts of gastroparesis. He gets these about once every other month. Allergies Allergy/AdvReac Type Severity Reaction Status Date / Time Cephalosporins Allergy Intermediate Hives Verified 09/15/20 10:30 Sulfa (Sulfonamide Allergy Intermediate Hives Verified 09/15/20 10:30 Antibiotics) azithromycin [From Zithromax] AdvReac Intermediate Hives Verified 09/15/20 10:30 Home Medications Medication Instructions Recorded Confirmed Type glucagon 3 mg INTNAS ONCE PRN 01/26/20 09/15/20 History diphenhydramine HCl [Benadryl] 25 mg PO HS PRN 05/15/20 09/15/20 History insulin lispro [Humalog U-100 1 sliding scale dose SUBCUT 05/15/20 09/15/20 History Insulin] USEASDIRECTD melatonin 5 mg PO HS 05/15/20 09/15/20 History methadone 10 mg PO DAILY 05/15/20 09/15/20 History ondansetron 4 mg PO TID PRN 06/01/20 09/15/20 History promethazine 25 mg PO TID PRN 06/01/20 09/15/20 History promethazine 25 mg [place] Q6H PRN #12 ea 06/01/20 09/15/20 Rx metoclopramide HCl [Reglan] 10 mg PO Q6H PRN #10 tab 07/27/20 09/15/20 Rx Past Med/Surg History Medical History Anemia Cyclic vomiting syndrome Diabetes Gastroparesis Hepatitis History of opioid abuse Pneumomediastinum Soft tissue abscess Surgical History No pertinent past surgical history Family History Other Cancer Diabetes Heart disease Hypertension Social History Smoking Status: Never smoker Cigarettes Per Day: 10 cigarettes per day; Second Hand Exposure: No; Hx Alcohol Use: No Hx Substance Use: Yes Prescribed Medications: Marijuana Last Used Substance: Hours (ago) Last Used Substance Other:: Last use of MJ was 2 weeks ago Substance Use Type Other:: heroin Preferred Language: Yakut Communication Ability: Effective Batch Heat Treat Operator Required: No Beliefs That Will Affect Care: None marital status: Single Current Living Situation: Parent Feels Safe at Home: Yes Assistive Devices: None Review of Systems Review of Systems: Mild distress and fatigue patient is with poor eye contact and decreased interaction no headache, blurry or double vision no speech or swallowing issues no chest pain, pressure or palpitations no shortness of breath, cough or wheezes Generalized epigastric abdominal pain, with nausea & vomiting, denies melena no dysuria, hematuria or frequency no focal joint pain or swelling no back pain, CVA tenderness or radicular pain no bruising, bleeding or rashes no focal signs of weakness or numbness or altered sensation no complaints of anxiety or depression.. Physical Exam Physical Exam: The patient appeared pale and depressed with poor eye contact and decreased vocal interaction Vital signs as documented. Head exam is normocephalic atraumatic no scleral icterus Neck is without JVD, thyromegaly, or carotid bruits. Lungs are clear to auscultation, no focal loss of breath sounds Cardiac exam, Rhythm is regular.. No murmurs, rubs or gallops. Abdominal exam reveals normal bowel sounds, soft non tender, no masses Extremities are nonedematous and both pedal pulses are present Neurologic exam is alert and oriented, no focal loss of strength or sensation Skin is without bruises or rashes Psychologically is without concerns for anxiety or depression Results & Data Results & Data ([facility]) Vital Signs (Past 12 Hours) Vital Signs Temp Pulse Resp BP Pulse Ox 09/15/20 09:35 98.1 F 68 16 128/74 99 PG Care Time/CCT Total # of Minutes Spent Total Time Spent with Patient: Total time spent is greater than 50% in coordination of care (as documented) at patient's floor/unit and/or counseling patient: Coding Level of Care Code 49014 Initial Inpt Care Lvl 2 Diagnoses Gastroparesis K31.84 Methadone dependence F11.20 Type I diabetes mellitus E10.9 Hypokalemia E87.6 DVT prophylaxis Z29.9
[2020-09-15] MEDS ORDERED: LORazepam 0.25 MG/0.5 ML VIAL IV STA (13:04)
--- NOTE | 2020-09-15 13:09 | XRay Report ---
XR abdomen 2V w PA chest CLINICAL HISTORY: Nausea and vomiting COMPARISON STUDY: 06/04/2020 FINDINGS: Direct chest reveals no free air. There is no focal pulmonary consolidation. Erect and supi ne views the abdomen reveal no abnormally dilated loops of large or small bowel. There are scattered colonic and small bowel air fluid levels. IMPRESSION: 1. Nonspecific bowel gas pattern with scattered colonic and small bowel air fluid levels 2. No conventional radiographic evidence of bowel obstruction ACT 112: Negative or not required by law. Electronically signed by: Walt Gray M.D. 09/15/2020 1:08 PM
[2020-09-15 15:08] LABS: Influenza A virus by PCR Negative (Neg); Influenza B virus by PCR Negative (Neg); RSV by PCR Negative (Neg); SARS CoV2 RNA(COVID-19) InHosp NEGATIVE (Negative)
[2020-09-15] MEDS ORDERED: CARBOHYDRATES FOR HYPOGLYCEMIA PO PRN (16:12)
[2020-09-15] MEDS ORDERED: PROMETHAZINE HCL 12.5 MG in SODIUM CHLORIDE 0.9% 50 ML IV PRN (16:12)
[2020-09-15] MEDS ORDERED: ALUMINUM/MAGNESIUM SUSP 30 ML UDC PO PRN (16:12)
[2020-09-15] MEDS ORDERED: GLUCOSE 40% GEL 15 GM TUBE PO PRN (16:12)
[2020-09-15] MEDS ORDERED: diphenhydrAMINE Capsule 25 MG CAP PO PRN (16:12)
[2020-09-15] MEDS ORDERED: GLUCAGON FOR INJ 1 MG VIAL SQ PRN (16:12)
[2020-09-15] MEDS ORDERED: ONDANSETRON INJ 2 MG/ML 2 ML VIAL IV PRN (16:12)
[2020-09-15] MEDS ORDERED: DEXTROSE 50% 50 ML SYRINGE IV PRN (16:12)
[2020-09-15] MEDS ORDERED: LORazepam 0.5 MG/1 ML VIAL IV PRN (16:12)
[2020-09-15] MEDS ORDERED: POTASSIUM CHLORIDE 20 MEQ in SODIUM CHLORIDE 0.9% 1000ML 1,000 ML IV SCH (16:12)
[2020-09-15] MEDS ORDERED: GLUCOSE 10 TABS/TUBE PO PRN (16:12)
--- NOTE | 2020-09-15 16:16 | Electrocardiogram Report ---
Test Reason : Blood Pressure : / mmHG Vent. Rate : 060 BPM Atrial Rate : 060 BPM P-R Int : 130 ms QRS Dur : 102 ms QT Int : 414 ms P-R-T Axes : 010 064 069 degrees QTc Int : 414 ms Normal sinus rhythm Incomplete right bundle branch block Borderline ECG When compared with ECG of 12-SEP-2020 18:14, Vent. rate has decreased BY 46 BPM QT has shortened Confirmed by Fabian Burciaga ([id number]) on 09/15/2020 4:16:28 PM Referred By: REFERRED SELF Confirmed By:Mikey Burciaga
[2020-09-15] MEDS ORDERED: PHARMACY GLYCEMIC MGMT CONSULT PRN (17:19)
[2020-09-15] MEDS: NSS + 20MEQ KCL 20 MEQ/1,000 ML BAG IV SCH (17:46)
[2020-09-15] MEDS: INSULIN ASPART 100 UNITS/ML 3 ML PEN SC SCH ×2 (17:48→20:51)
[2020-09-15] MEDS: METHADONE HCL 10 MG TAB PO SCH (17:51)
[2020-09-15 18:09] LABS: Appearance Urine Clear (Clear); Bilirubin Urine Negative (Negative); Blood Urine Negative (Negative); Color Urine Yellow; Glucose Urine UA 3+ (Negative); Ketones Urine 2+ (Negative); Leukocyte Esterase Urine Negative (Negative); Nitrite Urine Negative (Negative); Protein Urine Negative (Negative); Specific Gravity Urine 1.016 (1.000-1.030); Urobilinogen Urine Negative (Negative); pH Urine 7.5 (4.5-7.5)
[2020-09-15] MEDS: PANTOprazole 40 MG in SYRINGE 0 ML IV SCH (20:53)
[2020-09-15] MEDS ORDERED: INSULIN GLARGINE SOLOSTAR 100 UNITS/ML 3 ML PEN SC SCH (21:00)
[2020-09-16] MEDS: NSS + 20MEQ KCL 20 MEQ/1,000 ML BAG IV SCH ×3 (01:40→16:32)
[2020-09-16] MEDS ORDERED: INSULIN ASPART 100 UNITS/ML 3 ML PEN SC SCH (02:00)
[2020-09-16 06:33] LABS: Hematocrit (blood only) 34.5 % (42-52); Hemoglobin 11.4 g/dL (14.0-18.0); Mean Corpuscular Hemoglobin 28.9 pg (25-34); Mean Corpuscular Volume 87.6 fL (80-100); Mean Platelet Volume 10.4 fL (7.4-10.4); Platelet Count 183 K/uL (130-400); RDW Coefficient of Variation 12.7 % (11.5-14.5); RDW Standard Deviation 41.5 fL (36.4-46.3); Red Blood Count 3.94 M/uL (4.7-6.1); White Blood Count 7.29 K/uL (4.8-10.8)
[2020-09-16 07:16] LABS: BUN Creatinine Ratio 9.8 (10-20); Calcium 7.7 mg/dl (8.5-10.1); Creatinine Clr Calc Pharmacy 164.2 ml/min; Est GFR (African American) 145.7; Est GFR (Non-African American) 125.7; Magnesium 1.7 mg/dl (1.8-2.4); Potassium 3.8 mmol/L (3.5-5.1)
[2020-09-16] MEDS: METHADONE HCL 10 MG TAB PO SCH (08:12)
[2020-09-16] MEDS: INSULIN ASPART 100 UNITS/ML 3 ML PEN SC SCH ×2 (08:51→12:34)
--- NOTE | 2020-09-16 09:04 | Gastrointestinal Consultation ---
Date of Consultation September 16, 2020 Assessment & Plan (1) Gastroparesis: (2) Hematemesis: The patient is a pleasant 25-year-old male that has a history of gastroparesis and cyclical vomiting syndrome who is maintained at home on Motilium with as needed nausea medications including promethazine, Reglan, Zofran. He presented to the emergency department 24 hours post recent admission due to intractable nausea and vomiting. He does report some hematemesis while in the emergency department which has since resolved. ? Related to Daria- Souza tear. Hgb/HCT stable at 11.4/34.5. Patient tolerating clear liquid diet and denies further vomiting or hematemesis. Case reviewed with Dr. Whitt. Continue current medication regimen to include outpatient Motilium (Domperidone) 10mg TID prn which he will need to use his home medication for. Continue supportive care measures including IV fluids and nausea medication. Advance diet as tolerated slowly. Please refer to supervising physician addendum for further recommendations. History of Present Illness Attending Physician: Carly Mccullough MD History of Present Illness The patient is a pleasant 25-year-old male with past medical history to include anemia, marijuana use with cyclical vomiting syndrome, type 1 diabetes, gastroparesis, history of opioid abuse on methadone who presented to the emergency department with complaints of intractable nausea and vomiting. Most recently admitted for same symptoms 09/12/2020 to 09/14/2020. He was subsequently admitted for further management and GI consulted for further input. On exam/interview today, the patient wakes easily with verbal stimuli. He reports that he was discharged from the hospital and woke the next morning with intractable nausea and vomiting. He does have as needed medications for nausea including promethazine, Reglan, Zofran which he used without relief. He is on maintenance Motilium for history of gastroparesis. He denies any missed doses of the medication. He does report hematemesis while in the emergency department multiple times. He feels this was large volume and reports it was half of his emesis. Hemoglobin 11.4/hematocrit 34.5 this morning. He denies any further vomiting or hematemesis this morning. Denies any specific abdominal pain. He reports that he does have some cramping and discomfort following dry heaving. He does report a bowel movement x1 yesterday in which he noted no melena or hematochezia. He reports that he was able to tolerate clear liquids this morning and as well as last night. He reports a 50 to 60 pound weight loss over the last 2 years due to the symptoms. His weight has been stable and denies any further weight loss at this time. He is followed at [facility] due to his history of gastroparesis. He is a lifetime non-smoker of cigarettes. Denies any alcohol use. He does report medical marijuana use at least 2 times per week. He is unemployed. He lives with his parents. He is unmarried and has no children. Allergies Allergy/AdvReac Type Severity Reaction Status Date / Time Cephalosporins Allergy Intermediate Hives Verified 09/15/20 10:30 Sulfa (Sulfonamide Allergy Intermediate Hives Verified 09/15/20 10:30 Antibiotics) azithromycin [From Zithromax] AdvReac Intermediate Hives Verified 09/15/20 10:30 Home Medications Medication Instructions Recorded Confirmed Type glucagon 3 mg INTNAS ONCE PRN 01/26/20 09/15/20 History diphenhydramine HCl [Benadryl] 25 mg PO HS PRN 05/15/20 09/15/20 History insulin lispro [Humalog U-100 1 sliding scale dose SUBCUT 05/15/20 09/15/20 History Insulin] USEASDIRECTD melatonin 5 mg PO HS 05/15/20 09/15/20 History methadone 10 mg PO DAILY 05/15/20 09/15/20 History ondansetron 4 mg PO TID PRN 06/01/20 09/15/20 History promethazine 25 mg PO TID PRN 06/01/20 09/15/20 History promethazine 25 mg PA Q6H PRN #12 ea 06/01/20 09/15/20 Rx metoclopramide HCl [Reglan] 10 mg PO Q6H PRN #10 tab 07/27/20 09/15/20 Rx Patient History Medical History Anemia Cyclic vomiting syndrome Diabetes Gastroparesis Hepatitis History of opioid abuse Pneumomediastinum Soft tissue abscess Surgical History No pertinent past surgical history Family History Other Cancer Diabetes Heart disease Hypertension Social History Smoking Status: Never smoker Cigarettes Per Day: 10 cigarettes per day; Second Hand Exposure: No; Hx Alcohol Use: No Hx Substance Use: Yes Prescribed Medications: Marijuana Last Used Substance: Hours (ago) Last Used Substance Other:: Last use of MJ was 2 weeks ago Substance Use Type Other:: heroin Preferred Language: Yoruba Communication Ability: Effective Applications Chemist Required: No Beliefs That Will Affect Care: None marital status: Single Current Living Situation: Parent Other Information That Helps Us Care for You: Yes Feels Safe at Home: Yes Assistive Devices: None Review of Systems Review of Systems: All systems reviewed & are unremarkable except as noted in Subjective Physical Exam Constitutional: WD/WN, vitals as above Eyes: EOM intact bilaterally; no conjunctival abnormality ENMT: external ear and nose normal, oropharynx normal Neck: normal visual inspection and trachea midline Respiratory: normal respiratory effort, lungs clear to auscultation no respiratory distress Cardiovascular: RRR, no murmur, no edema Gastrointestinal (Abdomen): Inspection/Auscultation: abdomen normal to inspection and normal bowel sounds; abdomen not distended Percussion/Palpation: abdomen soft; abdomen nontender Musculoskeletal: no cyanosis or clubbing, extremities motor strength 5/5 Skin: no rashes, warm and dry Neurologic: moves all extremities and awake Psychiatric: Orientation: alert, oriented to person and cooperative Results & Data (MN) Vital Signs (Past 12 Hours) Vital Signs Temp Pulse Resp BP Pulse Ox 09/16/20 07:52 36.9 C 72 18 132/81 96 09/15/20 23:15 37.2 C 83 18 106/65 97 Laboratory Results - last 24 hr 09/15/20 09/15/20 09/15/20 10:00 10:00 13:55 WBC 6.51 RBC 4.29 L Hgb 12.5 L Hct 38.0 L MCV 88.6 MCH 29.1 MCHC 32.9 RDW Std Deviation 41.6 RDW Coeff of Carlos 13.0 Plt Count 190 MPV 10.2 Immature Gran % (Auto) 0.0 Neut % (Auto) 72.7 Lymph % (Auto) 20.9 Gates % (Auto) 4.9 Eos % (Auto) 1.2 Baso % (Auto) 0.3 Neut # (Auto) 4.73 Lymph # (Auto) 1.36 Gates # (Auto) 0.32 Eos # (Auto) 0.08 Baso # (Auto) 0.02 Immature Gran # (Auto) 0.00 Sodium 140 Potassium 3.3 L Chloride 107 Carbon Dioxide 28 Anion Gap 5.0 BUN 6 L Creatinine 0.95 Est Cr Clr Drug Dosing 136.5 Est GFR ( Amer) 129.3 Est GFR (Non-Af Amer) 111.6 BUN/Creatinine Ratio 6.7 L Glucose 230 H POC Glucose Calcium 8.6 Magnesium Total Bilirubin 0.4 AST 8 L ALT 17 Alkaline Phosphatase 66 Total Protein 6.8 Albumin 3.8 Globulin 3.0 Albumin/Globulin Ratio 1.3 Lipase 66 L Urine Color Urine Appearance Urine pH Ur Specific [place] Urine Protein Urine Glucose (UA) Urine Ketones Urine Blood Urine Nitrite Urine Bilirubin Urine Urobilinogen Ur Leukocyte Esterase COVID-19 Eval Order CovFluRsv at [facility] SARS-CoV-2 (PCR) Influenza Type A (PCR) Influenza Type B (PCR) RSV (RT-PCR) 09/15/20 09/15/20 09/15/20 13:55 16:36 17:04 WBC RBC Hgb 12.4 L Hct MCV MCH MCHC RDW Std Deviation RDW Coeff of Carlos Plt Count MPV Immature Gran % (Auto) Neut % (Auto) Lymph % (Auto) Gates % (Auto) Eos % (Auto) Baso % (Auto) Neut # (Auto) Lymph # (Auto) Gates # (Auto) Eos # (Auto) Baso # (Auto) Immature Gran # (Auto) Sodium Potassium Chloride Carbon Dioxide Anion Gap BUN Creatinine Est Cr Clr Drug Dosing Est GFR ( Amer) Est GFR (Non-Af Amer) BUN/Creatinine Ratio Glucose POC Glucose 210 H Calcium Magnesium Total Bilirubin AST ALT Alkaline Phosphatase Total Protein Albumin Globulin Albumin/Globulin Ratio Lipase Urine Color Urine Appearance Urine pH Ur Specific [place] Urine Protein Urine Glucose (UA) Urine Ketones Urine Blood Urine Nitrite Urine Bilirubin Urine Urobilinogen Ur Leukocyte Esterase COVID-19 Eval Order SARS-CoV-2 (PCR) NEGATIVE Influenza Type A (PCR) Negative Influenza Type B (PCR) Negative RSV (RT-PCR) Negative 09/15/20 09/15/20 09/16/20 20:50 Unknown 01:39 WBC RBC Hgb Hct MCV MCH MCHC RDW Std Deviation RDW Coeff of Carlos Plt Count MPV Immature Gran % (Auto) Neut % (Auto) Lymph % (Auto) Gates % (Auto) Eos % (Auto) Baso % (Auto) Neut # (Auto) Lymph # (Auto) Gates # (Auto) Eos # (Auto) Baso # (Auto) Immature Gran # (Auto) Sodium Potassium Chloride Carbon Dioxide Anion Gap BUN Creatinine Est Cr Clr Drug Dosing Est GFR ( Amer) Est GFR (Non-Af Amer) BUN/Creatinine Ratio Glucose POC Glucose 294 H 180 H Calcium Magnesium Total Bilirubin AST ALT Alkaline Phosphatase Total Protein Albumin Globulin Albumin/Globulin Ratio Lipase Urine Color Yellow Urine Appearance Clear Urine pH 7.5 Ur Specific [place] 1.016 Urine Protein Negative Urine Glucose (UA) 3+ H Urine Ketones 2+ H Urine Blood Negative Urine Nitrite Negative Urine Bilirubin Negative Urine Urobilinogen Negative Ur Leukocyte Esterase Negative COVID-19 Eval Order SARS-CoV-2 (PCR) Influenza Type A (PCR) Influenza Type B (PCR) RSV (RT-PCR) 09/16/20 09/16/20 09/16/20 06:00 06:00 07:55 WBC 7.29 RBC 3.94 L Hgb 11.4 L Hct 34.5 L MCV 87.6 MCH 28.9 MCHC 33.0 RDW Std Deviation 41.5 RDW Coeff of Carlos 12.7 Plt Count 183 MPV 10.4 Immature Gran % (Auto) Neut % (Auto) Lymph % (Auto) Gates % (Auto) Eos % (Auto) Baso % (Auto) Neut # (Auto) Lymph # (Auto) Gates # (Auto) Eos # (Auto) Baso # (Auto) Immature Gran # (Auto) Sodium 141 Potassium 3.8 D Chloride 110 H Carbon Dioxide 26 Anion Gap 5.0 BUN 8 Creatinine 0.79 Est Cr Clr Drug Dosing 164.2 Est GFR ( Amer) 145.7 Est GFR (Non-Af Amer) 125.7 BUN/Creatinine Ratio 9.8 L Glucose 133 H POC Glucose 115 H Calcium 7.7 L Magnesium 1.7 L Total Bilirubin AST ALT Alkaline Phosphatase Total Protein Albumin Globulin Albumin/Globulin Ratio Lipase Urine Color Urine Appearance Urine pH Ur Specific [place] Urine Protein Urine Glucose (UA) Urine Ketones Urine Blood Urine Nitrite Urine Bilirubin Urine Urobilinogen Ur Leukocyte Esterase COVID-19 Eval Order SARS-CoV-2 (PCR) Influenza Type A (PCR) Influenza Type B (PCR) RSV (RT-PCR) (1) Hematemesis Nausea presence: with nausea Qualified Code(s): K92.0 - Hematemesis
[2020-09-16] MEDS: PANTOprazole 40 MG in SYRINGE 0 ML IV SCH (09:39)
[2020-09-16] MEDS: [UNRECOGNIZED DRUG - REMARK] SCH ×2 (09:39→15:04)
--- NOTE | 2020-09-16 09:39 | Pharmacy Report ---
Pharmacy Glycemic Short Note 2 - Date of Service September 16, 2020 - Glycemic Short BSG Results (Last 24 hours): 09/15/20 09/15/20 09/15/20 10:00 16:36 20:50 Glucose 230 H POC Glucose 210 H 294 H 09/16/20 09/16/20 09/16/20 01:39 06:00 07:55 Glucose 133 H POC Glucose 180 H 115 H OUTPATIENT ANTIDIABETIC REGIMEN: * Insulin pump w/ Humalog insulin * basal ~ 26 units/day * bolus ~ 23 units/day * CF = 30mg/dl/unit for BSG > 150 * A1c = 7.1% on 07/28/20 ASSESSMENT: * 25 yo T1DM male known to pharmacy from previous admissions/glycemic consults * Pt with adequate outpatient glycemic control per A1c * Pt took his pump off sometime before 1000 yesterday 09/15. SQ basal bolus insulin regimen initiated on admission per previous admission glycemic data * Pt with gastroparesis and cyclical vomiting. Will slightly decrease outpatient insulin dosing for reduced PO. Only slight decrease in basal insulin since regimen is essentially 50%basal:50% bolus as an outpatient and basal insulin should not be held in T1DM regardless of PO status. PLAN FOR INPATIENT GLYCEMIC CONTROL: * Hold outpatient insulin pump - use SQ basal bolus insulin regimen with estimated TDD ~ 45-50 units/days * Basal insulin * Lantus 22 units SQ HS * Bolus insulin * NovoLog per scale ACHS or Q6hrs while NPO * Goal Range: Low 100 mg/dL - High 140 mg/dL * Correction Factor: 30 mg/dL/unit * Nutritional / Prandial insulin per carb ratio of 1 unit per 10 grams CHO consumed PLAN FOR DISCHARGE: * A1c is in goal range for age/co-morbidities (goal ~7%) * Pt may resume his pump per outpatient settings on dc
[2020-09-16] MEDS ORDERED: MAGNESIUM SULFATE / D5W 1 GM/100 ML BAG IV ONE (09:45)
[2020-09-16] MEDS ORDERED: CALCIUM GLUCONATE 10% 1,000 MG in SODIUM CHLORIDE 0.9% 50 ML IV ONE (09:45)
--- NOTE | 2020-09-16 13:57 | Consultation Report ---
DATE OF CONSULTATION: 09/16/2020 Addendum to the consult note by Radha Hendrix: I reviewed the chart and labs and imaging studies as well as talked to the patient and examined him. The patient appears to have diabetic gastroparesis and cyclical vomiting syndrome, which is now starting to get better. He is asking for solid food. On exam, he has a scar from an abscess in the left upper quadrant, but audible bowel sounds and no succussion splash. Advancing him to a diabetic diet, and if he improves, he could be able to go home. I asked him if there is a way that he can have his home medication, Domperidone, brought in, so he can take that as he would at home if he continues to stay in the hospital as it is not available in our formulary or by prescription in the [place]. SHI
--- NOTE | 2020-09-16 15:19 | Discharge Summary ---
Date of Service September 16, 2020 Admission HPI Per Admitting Provider 25-year-old male diabetic with history of gastroparesis, narcotic abuse currently methadone dependent, marijuana abuse who presents the ER for nausea and vomiting. He states he has some bright red blood in his emesis. He went home 09/14/20 as he was feeling better. He denies any dark stools or black stools or bright red blood in his stool. He notes this feels consistent with his previous bouts of gastroparesis. He gets these about once every other month. Principal Diagnosis Hematemesis, Daria-Souza tear, Cyclical vomiting syndrome Discharge Exam Constitutional WD/WN, vitals as above Eyes + anicteric sclerae Neck trachea midline, no thyromegaly Respiratory normal respiratory effort, lungs clear to auscultation Cardiovascular RRR, no murmur, no edema Chest (Breasts) Chest: normal inspection of chest Gastrointestinal (Abdomen) normal bowel sounds, soft, nontender, no hepatosplenomegaly Musculoskeletal Extremities: extremities normal to inspection; no cyanosis and no clubbing Skin no rashes, warm and dry Neurologic moves all extremities and awake; no focal motor deficits Psychiatric A+Ox3, euthymic affect Lymphatic no lymphedema Discharge Data Allergies Allergy/AdvReac Type Severity Reaction Status Date / Time Cephalosporins Allergy Intermediate Hives Verified 09/15/20 10:30 Sulfa (Sulfonamide Allergy Intermediate Hives Verified 09/15/20 10:30 Antibiotics) azithromycin [From Zithromax] AdvReac Intermediate Hives Verified 09/15/20 10:30 Consultations 09/15/20 12:32 ED Decision to Admit Stat 09/15/20 16:12 Consult Gastroenterology Stat Ordered Studies CXR/Abdomen xray Hospital Course (1) Gastroparesis: With a h/o gastroparesis, multiple admissions for N/V Also 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 cyclical vomiting syndrome-encouraged cessation Continue home meds as before and add Protonix daily DOing well, tolerating solids at the time of discharge No further vomiting hgb stable (2) Methadone dependence: Previous opioid dependence now on maintenance methadone (3) Type I diabetes mellitus: resume insulin pump on discharge, was on basal/bolus insulin while here (4) Hypokalemia: repleted and resolved Replaced IV calciumand magnesium as well (5) DVT prophylaxis: Early ambulation will be DVT prophylaxis Dispo-stable for dc to home Total Time Total Time Spent Total Time Spent (In Minutes): 35 min Total Time Includes: Examination of the Patient, Discharge Planning and Medication Reconciliation Discharge Plan Discharge Items Patient Disposition: Home - Self-Care Reason For Visit: vomiting Discharge Diagnosis: Intractable nausea/vomiting, Hematemesis Condition on Discharge: Good Activity: Resume your previous activity Non-emergency contact: Primary Care Provider Call non-emergency contact if: you have any medication questions and your symptoms worsen Follow-up/Referrals: Oneil Tinajero MD [Primary Care Provider] - 09/19/20 2:50 pm (Follow up within 1-2 weeks.) Diet: Carb Count or DM1 Addtl Attending Provider Instructions: You were admitted for recurrent nausea and vomiting related to gastroparesis and 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 It is important for you to STOP SMOKING MARIJUANA to prevent this from happening. You had some blood in your vomit from a small tear most likely in the esophagus. Please continue on Protonix 40m once daily as an antacid. Please resume your insulin pump upon return home. Follow up with your PCP within 1-2 weeks. Pending Studies at Discharge: No Stand-Alone Forms: [facility], Smoking Cessation Medications and DC Order Prescriptions: New pantoprazole [Protonix] 40 mg tablet,delayed release (DR/EC) 40 mg PO DAILY Qty: 30 RF: 0 Continued diphenhydramine HCl [Benadryl] 25 mg Capsule 25 mg PO HS PRN (Reason: Sleep) RF: 0 methadone 10 mg/mL Concentrate 10 mg PO DAILY RF: 0 insulin lispro [Humalog U-100 Insulin] 100 unit/mL Solution 1 sliding scale dose SUBCUT USEASDIRECTD RF: 0 melatonin 5 mg Tablet 5 mg PO HS RF: 0 promethazine 25 mg tablet 25 mg PO TID PRN (Reason: nausea) RF: 0 ondansetron 4 mg tablet,disintegrating 4 mg PO TID PRN (Reason: Nausea) RF: 0 promethazine 25 mg suppository 25 mg [place] Q6H PRN (Reason: sedation) Qty: 12 RF: 0 metoclopramide HCl [Reglan] 10 mg tablet 10 mg PO Q6H PRN (Reason: nausea and vomiting) Qty: 10 RF: 2 glucagon 3 mg/actuation spray,non-aerosol 3 mg INTNAS ONCE PRN (Reason: Hypoglycemia) RF: 0 Discharge Orders: Discharge Order (Routine); Ordered 09/16/20 Ordered By: Carly Mccullough Admission Data Admit Date/Time: 09/15/20 13:11 Attending Provider: Carly Mccullough Admit Provider: Eddie Skaggs Primary Care Provider: Oneil Tinajero Other Providers: Eddie Skaggs ; Spenser Whitt Coding Level of Care Code 67830 OBS Care - Discharge Diagnoses Gastroparesis K31.84 Methadone dependence F11.20 Type I diabetes mellitus E10.9 Hypokalemia E87.6 DVT prophylaxis Z29.9
== END 2020-09-16 18:39 | disposition home or self-care (01) ==
LOC: 3W 09:27 → ED 09:27 → SUATTDRO 13:11 → 3W 15:41

== ENCOUNTER 2020-11-07 12:37 | Observation (INO) ==
[2020-11-07] MEDS ORDERED: METOCLOPRAMIDE HCL INJ 5 MG/ML 2 ML VIAL IV STA (13:23)
[2020-11-07] MEDS ORDERED: SODIUM CHLORIDE 0.9% 1000ML 2,000 ML IV ONE (13:23)
[2020-11-07] MEDS ORDERED: diphenhydrAMINE 50 MG/ML VIAL IV STA (13:23)
[2020-11-07] MEDS ORDERED: LORazepam 0.5 MG/1 ML VIAL IV STA (13:23)
--- NOTE | 2020-11-07 13:27 | Emergency Department Note ---
History of Present Illness General Chief complaint: Vomiting Stated complaint: NAUSEA/VOMITING Time Seen by Provider: 11/07/20 13:07 History of Present Illness 25-year-old male who presents to the emergency department for evaluation of nausea and vomiting that started this morning around 8 AM upon awakening. The patient reports history of cyclic vomiting syndrome. The patient reports feeling well last night. The patient is diabetic with an insulin pump. He has not checked his glucose levels this morning. He has had a prior history of DKA. The patient reports that his last episode of similar symptoms was approximately 2 months ago when he was admitted to our facility. Patient reports that he has not smoked marijuana within the past week. He denies fever or chills, diarrhea, urinary symptoms, chest pain, shortness of breath or headache. He rates his overall discomfort a 5 out of 10. The patient reports that IV Reglan and Ativan helps his symptoms the most. Home Medications Medication Instructions Recorded Confirmed Type glucagon 3 mg INTNAS DIRECTED PRN 01/26/20 11/07/20 History diphenhydramine HCl [Benadryl] 25 mg PO HS PRN 05/15/20 11/07/20 History melatonin 5 mg PO HS 05/15/20 11/07/20 History methadone 10 mg PO DAILY 05/15/20 11/07/20 History ondansetron 4 mg PO TID PRN 06/01/20 11/07/20 History promethazine 25 mg PO TID PRN 06/01/20 11/07/20 History promethazine 25 mg PA Q6H PRN #12 ea 06/01/20 11/07/20 Rx metoclopramide HCl [Reglan] 10 mg PO Q6H PRN #10 tab 07/27/20 11/07/20 Rx pantoprazole [Protonix] 40 mg PO DAILY #30 tab 09/16/20 11/07/20 Rx blood sugar diagnostic #10 ea 09/22/20 09/22/20 History lancets 33 gauge #100 ea 09/22/20 09/22/20 History insulin aspart U-100 [Novolog 100 unit CONTINUOUS SUBCUTANEOUS 11/07/20 11/07/20 History U-100 Insulin aspart] INFUSION CONTINOUS Allergies Allergy/AdvReac Type Severity Reaction Status Date / Time Cephalosporins Allergy Intermediate Hives Verified 11/07/20 15:18 Sulfa (Sulfonamide Allergy Intermediate Hives Verified 11/07/20 15:18 Antibiotics) azithromycin [From Zithromax] AdvReac Intermediate Hives Verified 11/07/20 15:18 Past Med/Surg History Medical History Anemia Cyclic vomiting syndrome Diabetes Gastroparesis Gastroparesis Hepatitis History of opioid abuse Pneumomediastinum Soft tissue abscess Surgical History No pertinent past surgical history Family History Other Cancer Diabetes Heart disease Hypertension Social History Smoking Status: Never smoker Cigarettes Per Day: 10 cigarettes per day; Second Hand Exposure: No; Hx Alcohol Use: No Hx Substance Use: Yes Prescribed Medications: Marijuana Last Used Substance: Hours (ago) Last Used Substance Other:: Last use of MJ was 2 weeks ago Substance Use Type Other:: heroin Preferred Language: Nepali Communication Ability: Effective Hospital Product Specialist Required: No Beliefs That Will Affect Care: None marital status: Single Current Living Situation: Parent Feels Safe at Home: Yes Assistive Devices: None Review of Systems 10 system review was performed and was negative except for pertinent positives and negatives as indicated in history of present illness Physical Exam Vital Signs Vital Signs - 24 hr 11/07/20 12:40 11/07/20 13:54 11/07/20 15:00 Temperature 36.2 C L Temperature Source Temporal Artery Scan Pulse Rate 71 Pulse Rate [Right Finger] 64 81 Pulse Rhythm [Right Finger] Regular Pulse Strength [Right Finger] Respiratory Rate 18 17 17 Respiratory Effort / Characteristics Non-Labored Non-Labored Respiratory Depth Normal Normal Normal Respiratory Pattern Blood Pressure 125/88 Blood Pressure [Right Arm] 146/94 H 120/81 Blood Pressure Mean 100 Blood Pressure Mean [Right Arm] 111 94 Blood Pressure Position [Right Arm] Sitting Sitting Pulse Oximetry 99 99 98 Oxygen Delivery Method Room Air Room Air Room Air Sepsis Recent Fever Within 48 Hours No Sepsis New/Unexplained Change in Mental Status N/A Sepsis Action Taken by Nursing No Action Required 11/07/20 16:22 11/07/20 17:21 Temperature Temperature Source Pulse Rate Pulse Rate [Right Finger] 82 67 Pulse Rhythm [Right Finger] Regular Regular Pulse Strength [Right Finger] Normal Respiratory Rate 18 19 Respiratory Effort / Characteristics Non-Labored Non-Labored Respiratory Depth Normal Normal Respiratory Pattern Regular Regular Blood Pressure Blood Pressure [Right Arm] 129/84 127/80 Blood Pressure Mean Blood Pressure Mean [Right Arm] 99 95 Blood Pressure Position [Right Arm] Sitting Sitting Pulse Oximetry 99 99 Oxygen Delivery Method Room Air Room Air Sepsis Recent Fever Within 48 Hours Sepsis New/Unexplained Change in Mental Status Sepsis Action Taken by Nursing CONSTITUTIONAL: Unkempt appearing male. Alert and oriented X 3. Patient appears nauseated. HEENT: Normocephalic, atraumatic. Pupils equal, round and reactive. No scleral icterus or conjunctival injection/pallor. Mucous membranes are dry. NECK: Full active range of motion without discomfort. LYMPHATICS: No cervical chain adenopathy. RESPIRATORY: Clear to auscultation bilaterally with no wheezing, crackles, rhonchi or stridor. CARDIOVASCULAR: Regular rate and rhythm with no murmurs, rubs or gallops. GASTROINTESTINAL: Bowel sounds present in all quadrants. Patient has minimal and generalized abdominal tenderness to palpation. No epigastric tenderness to palpation. Negative Lima sign. Negative McBurney's point tenderness. Negative CVA tenderness. No abdominal rigidity, guarding or rebound. MUSCULOSKELETAL: Full range of motion of all joints without discomfort. INTEGUMENTARY: No rash or other significant dermatologic conditions noted. HEMATOLOGIC: No ecchymosis or petechiae. PSYCHIATRIC: Flat affect. NEUROLOGIC: No focal neurologic deficits noted. Course Course Patient history and physical exam were performed. Nurses notes were reviewed. Vital signs were reviewed and were grossly normal except for a mildly elevated blood pressure 146/94. The patient is not tachycardic, febrile or hypoxic. Also reviewed prior medical records, showing that the patient has had multiple admissions in the past for suspected cannabinoid hyperemesis syndrome. As indicated in HPI, the patient reports that his last marijuana use was 1 week ago. Patient also reports that he did not check his glucose level today. IV access was established, and labs were drawn. The patient was hydrated with 2 L of normal saline, and was initially administered IV Ativan, Benadryl and Reglan. Review of labs shows a glucose of 134, otherwise remaining labs, including CBC, CMP, lipase and urinalysis were otherwise unremarkable other than ketonuria. Anion gap and CO2 are normal. Upon reevaluation approximately an hour after his IV medications, he reports that his nausea was reduced by about half. The patient was then administered additional IV Zofran with no significant relief of pain. The patient then requested IV Phenergan, and reported that he does not feel that he is going to be stable for discharge home, and has requested hospitalization. I did order an abdomen obstruction series with a PA chest view that was also normal. COVID-19 testing was performed and was negative. Findings were discussed with Dr. Campo, ED attending physician, who agrees with hospitalist consultation. The case was then further discussed with the [facility] hospitalist service (Dr. Peña) who evaluated the patient. Please see his dictation for further treatment and final disposition. Administered Medications Sodium Chloride (Nss 1000ml) 1,000 mls @ 100 mls/hr IV .Q10H YUE Stop: 12/07/20 21:37 Last Admin: 11/07/20 22:22 Dose: 100 mls/hr Documented by: [id number] Insulin Aspart (Novolog Insulin Pump) 1 ea N/A [facility]; Protocol Stop: 12/07/20 21:59 Last Admin: 11/07/20 22:31 Dose: Not Given Documented by: [id number] Cosigned by: [id number] Melatonin (Melatonin 3 Mg Tab) 3 mg PO HS YUE Stop: 12/07/20 21:59 Last Admin: 11/07/20 22:21 Dose: 3 mg Documented by: [id number] Metoclopramide HCl (Metoclopramide Hcl 10 Mg Tablet) 10 mg PO Q6H YUE Stop: 12/07/20 21:59 Last Admin: 11/07/20 22:21 Dose: 10 mg Documented by: [id number] Discontinued Medications Diphenhydramine HCl (Diphenhydramine 50 Mg/Ml Vial) 25 mg IV NOW STA Stop: 11/07/20 13:24 Last Admin: 11/07/20 13:52 Dose: 25 mg Documented by: [id number] Lorazepam (Ativan) 0.5 mg in 1 mls @ 1 mls/min IV NOW STA Stop: 11/07/20 13:24 Last Admin: 11/07/20 13:52 Dose: 1 mls/min Documented by: [id number] Sodium Chloride (Nss 1000ml) 2,000 mls @ 999 mls/hr IV .Q2H1M ONE Stop: 11/07/20 15:23 Last Infusion: 11/07/20 16:34 Dose: 0 mls/hr Documented by: [id number] Admin: 11/07/20 13:52 Dose: 999 mls/hr Documented by: [id number] Promethazine HCl (Phenergan) 25 mg in 51 mls @ 204 mls/hr IV NOW STA Stop: 11/07/20 17:26 Last Infusion: 11/07/20 17:37 Dose: 0 mls/hr Documented by: [id number] Admin: 11/07/20 17:22 Dose: 204 mls/hr Documented by: [id number] Metoclopramide HCl (Metoclopramide Hcl Inj 5 Mg/Ml 2 Ml Vial) 10 mg IV NOW STA Stop: 11/07/20 13:24 Last Admin: 11/07/20 13:53 Dose: 10 mg Documented by: [id number] Ondansetron HCl (Ondansetron Inj 2 Mg/Ml 2 Ml Vial) 4 mg IV NOW STA Stop: 11/07/20 15:18 Last Admin: 11/07/20 16:19 Dose: 4 mg Documented by: [id number] Medical Decision Making Medical Records Attestation: I reviewed the patient's medical records. Home Medications Current Medication List: was personally reviewed by me Laboratory Data Attestation: I reviewed the patient's lab results. Result diagrams: 11/07/20 13:35 11/07/20 13:35 Lab Results 11/07/20 11/07/20 11/07/20 Range/Units 13:35 13:35 13:57 WBC 7.54 (4.8-10.8) K/uL RBC 4.71 (4.7-6.1) M/uL Hgb 13.7 L (14.0-18.0) g/dL Hct 41.6 L (42-52) % MCV 88.3 (80-100) fL MCH 29.1 (25-34) pg MCHC 32.9 (32-36) g/dL RDW Std Deviation 41.9 (36.4-46.3) fL RDW Coeff of Carlos 13.0 (11.5-14.5) % Plt Count 194 (130-400) K/uL MPV 10.5 H (7.4-10.4) fL Immature Gran % (Auto) 0.1 % Neut % (Auto) 81.6 % Lymph % (Auto) 13.5 % Troup % (Auto) 4.1 % Eos % (Auto) 0.4 % Baso % (Auto) 0.3 % Neut # (Auto) 6.15 (1.4-6.5) K/uL Lymph # (Auto) 1.02 L (1.2-3.4) K/uL Troup # (Auto) 0.31 (0.11-0.59) K/uL Eos # (Auto) 0.03 (0-0.5) K/uL Baso # (Auto) 0.02 (0-0.2) K/uL Immature Gran # (Auto) 0.01 (0.00-0.02) K/uL Sodium 143 (136-145) mmol/L Potassium 3.6 (3.5-5.1) mmol/L Chloride 110 H (98-107) mmol/L Carbon Dioxide 28 (21-32) mmol/L Anion Gap 5.0 (3-11) BUN 8 (7-18) mg/dl Creatinine 0.76 (0.6-1.4) mg/dl Est Cr Clr Drug Dosing 159.4 ml/min Est GFR ( Amer) 148.0 ml/min Est GFR (Non-Af Amer) 127.7 ml/min BUN/Creatinine Ratio 11.2 (10-20) Glucose 134 H (70-99) mg/dl Calcium 9.0 (8.5-10.1) mg/dl Total Bilirubin 0.6 (0.2-1) mg/dl AST 8 L (15-37) U/L ALT 13 (12-78) U/L Alkaline Phosphatase 64 (45-117) U/L Total Protein 7.6 (6.4-8.2) gm/dl Albumin 4.6 (3.4-5.0) gm/dl Globulin 3.0 (2.5-4.0) gm/dl Albumin/Globulin Ratio 1.5 (0.9-2) Lipase 53 L (73-393) U/L Urine Color Yellow Urine Appearance Clear (Clear) Urine pH >= 9.0 H (4.5-7.5) Ur Specific Gilman 1.021 (1.000-1.030) Urine Protein 1+ H (Negative) Urine Glucose (UA) Negative (Negative) Urine Ketones 3+ H (Negative) Urine Blood Negative (Negative) Urine Nitrite Negative (Negative) Urine Bilirubin Negative (Negative) Urine Urobilinogen Negative (Negative) Ur Leukocyte Esterase Negative (Negative) Urine WBC (Auto) 1-5 (0-5) /hpf Urine RBC (Auto) 0-4 (0-4) /hpf U Hyaline Cast (Auto) 0 (0-5) /lpf U Epithel Cells (Auto) 5-10 H (0-5) /lpf Urine Bacteria (Auto) Negative (Negative) Ur Renal Epithelial Cell Not Reportable Urine Opiates Screen (Neg) Ur Methadone, Qual (Neg) Urine Barbiturates (Neg) Ur Phencyclidine (PCP) (Neg) U Amphetamin/Meth Scrn (Neg) MDMA (Ecstasy) Screen (Neg) U Benzodiazepines Scrn (Neg) Ur Cocaine Metabolite (Neg) U Marijuana (THC) Screen (Neg) COVID-19 Eval Order SARS-CoV-2 (PCR) (Negative) 11/07/20 11/07/20 11/07/20 Range/Units 13:57 17:25 17:25 WBC (4.8-10.8) K/uL RBC (4.7-6.1) M/uL Hgb (14.0-18.0) g/dL Hct (42-52) % MCV (80-100) fL MCH (25-34) pg MCHC (32-36) g/dL RDW Std Deviation (36.4-46.3) fL RDW Coeff of Carlos (11.5-14.5) % Plt Count (130-400) K/uL MPV (7.4-10.4) fL Immature Gran % (Auto) % Neut % (Auto) % Lymph % (Auto) % Troup % (Auto) % Eos % (Auto) % Baso % (Auto) % Neut # (Auto) (1.4-6.5) K/uL Lymph # (Auto) (1.2-3.4) K/uL Troup # (Auto) (0.11-0.59) K/uL Eos # (Auto) (0-0.5) K/uL Baso # (Auto) (0-0.2) K/uL Immature Gran # (Auto) (0.00-0.02) K/uL Sodium (136-145) mmol/L Potassium (3.5-5.1) mmol/L Chloride (98-107) mmol/L Carbon Dioxide (21-32) mmol/L Anion Gap (3-11) BUN (7-18) mg/dl Creatinine (0.6-1.4) mg/dl Est Cr Clr Drug Dosing ml/min Est GFR ( Amer) ml/min Est GFR (Non-Af Amer) ml/min BUN/Creatinine Ratio (10-20) Glucose (70-99) mg/dl Calcium (8.5-10.1) mg/dl Total Bilirubin (0.2-1) mg/dl AST (15-37) U/L ALT (12-78) U/L Alkaline Phosphatase (45-117) U/L Total Protein (6.4-8.2) gm/dl Albumin (3.4-5.0) gm/dl Globulin (2.5-4.0) gm/dl Albumin/Globulin Ratio (0.9-2) Lipase (73-393) U/L Urine Color Urine Appearance (Clear) Urine pH (4.5-7.5) Ur Specific Gilman (1.000-1.030) Urine Protein (Negative) Urine Glucose (UA) (Negative) Urine Ketones (Negative) Urine Blood (Negative) Urine Nitrite (Negative) Urine Bilirubin (Negative) Urine Urobilinogen (Negative) Ur Leukocyte Esterase (Negative) Urine WBC (Auto) (0-5) /hpf Urine RBC (Auto) (0-4) /hpf U Hyaline Cast (Auto) (0-5) /lpf U Epithel Cells (Auto) (0-5) /lpf Urine Bacteria (Auto) (Negative) Ur Renal Epithelial Cell Urine Opiates Screen Neg (Neg) Ur Methadone, Qual Neg (Neg) Urine Barbiturates Neg (Neg) Ur Phencyclidine (PCP) Neg (Neg) U Amphetamin/Meth Scrn Neg (Neg) MDMA (Ecstasy) Screen Neg (Neg) U Benzodiazepines Scrn Neg (Neg) Ur Cocaine Metabolite Neg (Neg) U Marijuana (THC) Screen Pos H (Neg) COVID-19 Eval Order Covid19 at [facility] SARS-CoV-2 (PCR) NEGATIVE (Negative) Imaging Data Attestation: I personally reviewed and interpreted this imaging study as follows: My Impression: My interpretation of an abdomen obstruction series with a PA chest view does not show any obstructive pattern, free air, significant fecal load or other acute pulmonary findings. Radiologist report was also reviewed. Radiologist's Impression: Chest/Abdomen X-ray 11/07/20 17:27 PA CHEST RADIOGRAPH AND UPRIGHT AND SUPINE AP RADIOGRAPHS OF THE ABDOMEN CLINICAL HISTORY: Diabetic gastroparesis, nausea/vomiting COMPARISON STUDY: Chest radiograph and abdominal series September 15, 2020. FINDINGS: Lung volumes are normal. There is no pneumothorax or pleural effusion. Lungs are clear. Cardiac size is normal. Mediastinal contours are normal. There is no evidence for pulmonary edema. No free air is evident on the upright projections. A left pelvic calcification represents a phlebolith. The gala wel gas pattern is normal. IMPRESSION: 1. No free air or evidence of bowel obstruction. 2. No acute cardiopulmonary findings. ACT 112: Negative or not required by law. Electronically signed by: Bladimir Carrero M.D. 11/07/2020 6:35 PM Blood Pressure Blood Pressure Findings: Normal blood pressure MDM Narrative Patient presents to the emergency department with complaint of nausea and vomiting. The patient does have a history of diabetic gastroparesis, and is a type I diabetic. Fortunately the patient's glucose is in decent control today with no evidence for DKA by labs. The patient has intractable nausea, and hospitalist consultation was performed. Patient has complicated history of cyclic vomiting, and probable cannabis hyperemesis syndrome. Patient does not have any significant electrolyte abnormalities today. He is afebrile and has no leukocytosis to suggest an acute infectious etiology. Abdominal exam is benign, therefore I do not suspect appendicitis, pyelonephritis or other acute intra- abdominal etiologies. Impression & Plan Intractable cyclical vomiting with nausea, Type I diabetes mellitus, Gastroparesis, Marijuana use, Methadone dependence Discharge Plan Visit Data Chief Complaint: Vomiting Stated Complaint: NAUSEA/VOMITING ED Provider: Fidel Campo ED Midlevel Provider: Vinnie Pittman Discharge Problem: Intractable cyclical vomiting with nausea, Type I diabetes mellitus, Ga stroparesis, Marijuana use, Methadone dependence Patient Disposition: Admitted As Inpatient Discharge Instructions Interventions: ED Discharge Assessment Last Done: 11/07/20 20:54
[2020-11-07 13:46] LABS: Basophils # (auto) 0.02 K/uL (0-0.2); Basophils % (auto) 0.3 %; Eosinophils # (auto) 0.03 K/uL (0-0.5); Eosinophils % (auto) 0.4 %; Hematocrit (blood only) 41.6 % (42-52); Hemoglobin 13.7 g/dL (14.0-18.0); Immature Granulocytes # (auto) 0.01 K/uL (0.00-0.02); Immature Granulocytes % (auto) 0.1 %; Lymphocytes # (auto) 1.02 K/uL (1.2-3.4); Lymphocytes % (auto) 13.5 %; Mean Corpuscular Hemoglobin 29.1 pg (25-34); Mean Corpuscular Hgb Conc 32.9 g/dL (32-36); Mean Corpuscular Volume 88.3 fL (80-100); Mean Platelet Volume 10.5 fL (7.4-10.4); Monocytes # (auto) 0.31 K/uL (0.11-0.59); Monocytes % (auto) 4.1 %; Neutrophils # (auto) 6.15 K/uL (1.4-6.5); Neutrophils % (auto) 81.6 %; Platelet Count 194 K/uL (130-400); RDW Standard Deviation 41.9 fL (36.4-46.3); Red Blood Count 4.71 M/uL (4.7-6.1); White Blood Count 7.54 K/uL (4.8-10.8)
[2020-11-07 14:09] LABS: Appearance Urine Clear (Clear); Bacteria Urine Automated Negative (Negative); Bilirubin Urine Negative (Negative); Blood Urine Negative (Negative); Color Urine Yellow; Glucose Urine UA Negative (Negative); Ketones Urine 3+ (Negative); Leukocyte Esterase Urine Negative (Negative); Nitrite Urine Negative (Negative); RBC Urine Automated 0-4 /hpf (0-4); Specific Gravity Urine 1.021 (1.000-1.030); Urobilinogen Urine Negative (Negative); pH Urine >= 9.0 (4.5-7.5)
[2020-11-07 14:12] LABS: Protein Urine 1+ (Negative)
[2020-11-07 14:13] LABS: Albumin Level 4.6 gm/dl (3.4-5.0); BUN Creatinine Ratio 11.2 (10-20); Creatinine Clr Calc Pharmacy 159.4 ml/min; Est GFR (Non-African American) 127.7 ml/min; Potassium 3.6 mmol/L (3.5-5.1)
[2020-11-07 14:16] LABS: Albumin Globulin Ratio 1.5 (0.9-2); Bilirubin,Total 0.6 mg/dl (0.2-1); Total Protein 7.6 gm/dl (6.4-8.2)
[2020-11-07 14:20] LABS: Cast Urine Automated 0 /lpf (0-5)
[2020-11-07 14:52] LABS: Amphetamines+Metham, Urine Neg (Neg); Barbiturates, Urine Neg (Neg); Benzodiazepine, Urine Neg (Neg); Cocaine, Urine Neg (Neg); MDMA (Ecstacy), Urine Neg (Neg); Methadone, Urine Neg (Neg); Opiate, Urine Neg (Neg); Phencyclidine, Urine Neg (Neg)
[2020-11-07] MEDS ORDERED: ONDANSETRON INJ 2 MG/ML 2 ML VIAL IV STA (15:17)
[2020-11-07] MEDS ORDERED: PROMETHAZINE 25 MG/51 ML BAG IV STA (17:12)
--- NOTE | 2020-11-07 18:36 | XRay Report ---
PA CHEST RADIOGRAPH AND UPRIGHT AND SUPINE AP RADIOGRAPHS OF THE ABDOMEN CLINICAL HISTORY: Diabetic gastroparesis, nausea/vomiting COMPARISON STUDY: Chest radiograph and abdominal series September 15, 2020. FINDINGS: Lung volumes are normal. There is no pneumothorax or pleural effusion. Lungs are clear. Ca rdiac size is normal. Mediastinal contours are normal. There is no evidence for pulmonary edema. No f ree air is evident on the upright projections. A left pelvic calcification represents a phlebolith. T he bowel gas pattern is normal. IMPRESSION: 1. No free air or evidence of bowel obstruction. 2. No acute cardiopulmonary findings. ACT 112: Negative or not required by law. Electronically signed by: Bladimir Carrero M.D. 11/07/2020 6:35 PM
--- NOTE | 2020-11-07 18:37 | History & Physical Report ---
Date of Service November 07, 2020 Assessment & Plan (1) Gastroparesis: Patient has ongoing issues with cyclic vomiting. Will continue Zofran, give [id number] IV Reglan Start clear liquids as tolerated, can advance depending on patient's progress Should discuss cessation of marijuana use prior to discharge (2) Type I diabetes mellitus: Patient has an insulin pump which should be continued Patient sugars are currently controlled, if this changes we should consider changing over to bolus dosing (3) Methadone dependence: Patient is on 10 mg daily, this will be ordered while the patient remains here in the hospital (4) Marijuana use: Discussed smoking cessation with the patient considering his ongoing symptoms History of Present Illness Primary Care Provider: Oneil Tinajero MD This is a 25-year-old male with past medical history gastroparesis, cyclic vomiting syndrome, marijuana abuse, methadone dependent that presents today complaining of intractable nausea vomiting. This is consistent with his usual symptoms of gastroparesis. Patient had trials of medications in the ER, told me the Zofran and Ativan seemed to work although he is still extremely nauseous and is now being placed in observation. Patient denies any change in bowel habits. He does have some mild pain in the abdomen. He has been able to tolerate solids or liquids in the emergency room. Patient was given Phenergan, Zofran, and Ativan by the PA-C in the ER, patient is now resting comfortably. Allergies Allergy/AdvReac Type Severity Reaction Status Date / Time Cephalosporins Allergy Intermediate Hives Verified 11/07/20 15:18 Sulfa (Sulfonamide Allergy Intermediate Hives Verified 11/07/20 15:18 Antibiotics) azithromycin [From Zithromax] AdvReac Intermediate Hives Verified 11/07/20 15:18 Home Medications Medication Instructions Recorded Confirmed Type glucagon 3 mg INTNAS DIRECTED PRN 01/26/20 11/07/20 History diphenhydramine HCl [Benadryl] 25 mg PO HS PRN 05/15/20 11/07/20 History melatonin 5 mg PO HS 05/15/20 11/07/20 History methadone 10 mg PO DAILY 05/15/20 11/07/20 History ondansetron 4 mg PO TID PRN 06/01/20 11/07/20 History promethazine 25 mg PO TID PRN 06/01/20 11/07/20 History promethazine 25 mg CO Q6H PRN #12 ea 06/01/20 11/07/20 Rx metoclopramide HCl [Reglan] 10 mg PO Q6H PRN #10 tab 07/27/20 11/07/20 Rx pantoprazole [Protonix] 40 mg PO DAILY #30 tab 09/16/20 11/07/20 Rx blood sugar diagnostic #10 ea 09/22/20 09/22/20 History lancets 33 gauge #100 ea 09/22/20 09/22/20 History insulin aspart U-100 [Novolog 100 unit CONTINUOUS SUBCUTANEOUS 11/07/20 11/07/20 History U-100 Insulin aspart] INFUSION CONTINOUS Past Med/Surg History Medical History Anemia Cyclic vomiting syndrome Diabetes Gastroparesis Gastroparesis Hepatitis History of opioid abuse Pneumomediastinum Soft tissue abscess Surgical History No pertinent past surgical history Family History Other Cancer Diabetes Heart disease Hypertension Social History Smoking Status: Never smoker Cigarettes Per Day: 10 cigarettes per day; Second Hand Exposure: No; Hx Alcohol Use: No Hx Substance Use: Yes Prescribed Medications: Marijuana Last Used Substance: Hours (ago) Last Used Substance Other:: Last use of MJ was 2 weeks ago Substance Use Type Other:: heroin Preferred Language: Divehi Communication Ability: Effective Bomb Loader Required: No Beliefs That Will Affect Care: None marital status: Single Current Living Situation: Parent Feels Safe at Home: Yes Assistive Devices: None Review of Systems Review of Systems: All systems reviewed & are unremarkable except as noted in HPI & below Constitutional: + anorexia; no fever, no sweats, no body aches and no fatigue Respiratory: no cough, no chest congestion, no change in sputum, no dyspnea and no dyspnea on exertion Cardiovascular: no chest pain, no radiating jaw, neck or arm pain, no dyspnea, no dyspnea on exertion and no orthopnea Gastrointestinal: + belching, + nausea and + vomiting; no abdominal pain, no pain with swallowing, no cramping, no constipation, no diarrhea/loose stools and no melena Genitourinary: no dysuria, no difficulty urinating, no urinary hesitancy and no urinary incontinence Musculoskeletal: no back pain, no neck pain, no loss of height and no joint pain Integumentary: no acne and no rash Neurologic: as per Subjective / HPI Psychiatric: as per Subjective / HPI Physical Exam Constitutional: cooperative; no acute distress Neck: trachea midline, no thyromegaly Respiratory: normal respiratory effort, lungs clear to auscultation Auscultation: lungs clear to auscultation bilaterally Cardiovascular: RRR, no murmur, no edema Vessels: no JVD and no carotid bruit Gastrointestinal (Abdomen): Inspection/Auscultation: abdomen normal to inspection and + hypoactive bowel sounds Percussion/Palpation: abdomen soft; abdomen nontender and no guarding Musculoskeletal: no cyanosis or clubbing, extremities motor strength 5/5 Skin: no rashes, warm and dry Neurologic: PERRL, EOMI, accommodation nl, no face palsy, no dysarthria Psychiatric: A+Ox3, euthymic affect Results & Data Results & Data ([facility]) Vital Signs (Past 12 Hours) Vital Signs Temp Pulse Pulse Resp BP BP Pulse Ox 11/07/20 17:21 67 19 127/80 99 11/07/20 16:22 82 18 129/84 99 11/07/20 15:00 81 17 120/81 98 11/07/20 13:54 64 17 146/94 H 99 11/07/20 12:40 36.2 C L 71 18 125/88 99 PG Care Time/CCT Total # of Minutes Spent Total Time Spent with Patient: Total time spent is greater than 50% in coordination of care (as documented) at patient's floor/unit and/or counseling patient: Coding Level of Care Code 73960 OBS Care - Level 3 Diagnoses Gastroparesis K31.84 Type I diabetes mellitus E10.9 Methadone dependence F11.20 Marijuana use F12.90
[2020-11-07] MEDS ORDERED: INSULIN ASPART PER UNIT SC SCH (21:38)
[2020-11-07] MEDS ORDERED: ONDANSETRON INJ 2 MG/ML 2 ML VIAL IV PRN (21:38)
[2020-11-07] MEDS ORDERED: [UNRECOGNIZED DRUG - REMARK] INTNAS PRN (21:38)
[2020-11-07] MEDS ORDERED: diphenhydrAMINE Capsule 25 MG CAP PO PRN (21:38)
[2020-11-07] MEDS ORDERED: GLUCOSE 40% GEL 15 GM TUBE PO PRN (21:45)
[2020-11-07] MEDS ORDERED: INSULIN ASPART 100 UNITS/ML VIAL SC PRN (21:45)
[2020-11-07] MEDS ORDERED: GLUCAGON FOR INJ 1 MG VIAL SQ PRN (21:45)
[2020-11-07] MEDS ORDERED: GLUCOSE 10 TABS/TUBE PO PRN (21:45)
[2020-11-07] MEDS ORDERED: DEXTROSE 50% 50 ML SYRINGE IV PRN (21:45)
[2020-11-07] MEDS: MELATONIN 3 MG TAB PO SCH (22:21)
[2020-11-07] MEDS: METOCLOPRAMIDE HCL 10 MG TABLET PO SCH (22:21)
[2020-11-07] MEDS: SODIUM CHLORIDE 0.9% 1000ML 1,000 ML IV SCH (22:22)
[2020-11-07] MEDS: NovoLOG INSULIN PUMP SCH (22:31)
[2020-11-08] MEDS: METOCLOPRAMIDE HCL 10 MG TABLET PO SCH ×4 (04:20→22:46)
[2020-11-08 06:14] LABS: Basophils # (auto) 0.01 K/uL (0-0.2); Basophils % (auto) 0.1 %; Hematocrit (blood only) 35.5 % (42-52); Hemoglobin 11.7 g/dL (14.0-18.0); Immature Granulocytes # (auto) 0.02 K/uL (0.00-0.02); Immature Granulocytes % (auto) 0.2 %; Lymphocytes # (auto) 0.92 K/uL (1.2-3.4); Lymphocytes % (auto) 9.3 %; Mean Corpuscular Volume 88.1 fL (80-100); Mean Platelet Volume 10.6 fL (7.4-10.4); Monocytes # (auto) 0.59 K/uL (0.11-0.59); Monocytes % (auto) 5.9 %; Neutrophils # (auto) 8.39 K/uL (1.4-6.5); Neutrophils % (auto) 84.5 %; Platelet Count 182 K/uL (130-400); RDW Standard Deviation 42.2 fL (36.4-46.3); Red Blood Count 4.03 M/uL (4.7-6.1); White Blood Count 9.93 K/uL (4.8-10.8)
[2020-11-08 06:42] LABS: BUN Creatinine Ratio 16.9 (10-20); Blood Urea Nitrogen 12 mg/dl (7-18); Calcium 8.3 mg/dl (8.5-10.1); Carbon Dioxide 26 mmol/L (21-32); Chloride 106 mmol/L (98-107); Creatinine Clr Calc Pharmacy 165.8 ml/min; Est GFR (African American) > 150.0 ml/min; Est GFR (Non-African American) 130.6 ml/min; Glucose 209 mg/dl (70-99); Magnesium 1.5 mg/dl (1.8-2.4); Potassium 3.4 mmol/L (3.5-5.1); Sodium 140 mmol/L (136-145)
[2020-11-08] MEDS ORDERED: NovoLOG INSULIN PUMP SCH (07:30)
[2020-11-08] MEDS: NovoLOG INSULIN PUMP SCH ×4 (08:00→20:59)
[2020-11-08] MEDS: PANTOprazole 40 MG TAB PO SCH (09:00)
[2020-11-08] MEDS: METHADONE HCL 10 MG TAB PO SCH (09:30)
[2020-11-08] MEDS ORDERED: POTASSIUM CHLORIDE CRTAB 20 MEQ TABCR PO STA ×2 (10:04→13:07)
[2020-11-08] MEDS: NSS + 20MEQ KCL 20 MEQ/1,000 ML BAG IV SCH ×2 (12:50→22:46)
[2020-11-08] MEDS: MAGNESIUM SULFATE / D5W 1 GM/100 ML BAG IV SCH ×2 (12:53→15:16)
[2020-11-08] MEDS: SODIUM CHLORIDE 0.9% 1000ML 1,000 ML IV SCH (13:11)
--- NOTE | 2020-11-08 20:12 | Hospitalist Progress Note ---
Date of Service November 08, 2020 Assessment & Plan (1) Gastroparesis: I cannot rule out that his presentation is from THC hyperemesis syndrome. His mother has migraines so he could have true cyclic vomiting syndrome. Regardless his symptoms are improved today. Cont IV Fluids. Advance to full liquids in am. Make reglan PRN starting tomorrow am. labs in am. He has frequent admissions for this issue - consider prophylaxis (elavil, etc). (2) Type I diabetes mellitus: Cont home insulin pump check a1c in am BSGs thus far controlled w/ current pump settings (3) Methadone dependence: Patient is on 10 mg daily and follows with a local methadone clinic. He is trying to wean off methadone in the outpatient setting under the clinic's direction. (4) Marijuana use: Ideally he d/c all THC use in light of his GI issues (5) Hypomagnesemia: replace IV mag recheck level am (6) Hypokalemia: replete repeat BMP am Admission and Anticipated Discharge Date Admission Date: November 07, 2020 Subjective patient feeling much better no further N/V tolerating clears denies any post-prandial abdominal pain in the previous weeks/months leading up to this admission he denies chronic N/V - only has these symptoms with flare-ups of his cyclic vomiting/gastroparesis mother has migraines patient with insulin pump - BSGs <200 today had low-grade fever last night - no fevers/chills/loss of taste/smell; denies nasal congestion, sore throat, cough, congestion, myalgias, flu=like symptoms Review of Systems Constitutional: no fever, no chills, no body aches, no fatigue and no anorexia Ear, Nose, Mouth, Throat: no ear pain and no sore throat Respiratory: no cough and no dyspnea Cardiovascular: no chest pain Gastrointestinal: no abdominal pain and no diarrhea/loose stools Physical Exam Constitutional: well developed and well nourished; no acute distress and no altered mental status ENMT: external ear and nose normal, oropharynx normal Respiratory: normal respiratory effort, lungs clear to auscultation Cardiovascular: Rate/Rhythm: regular rate and regular rhythm Heart Sounds: normal S1 and normal S2; no murmur Vessels: posterior tibial pulses present and dorsalis pedis pulses present; no JVD Extremities: no edema Gastrointestinal (Abdomen): normal bowel sounds, soft, nontender, no hepatosplenomegaly Skin: no rashes, warm and dry Psychiatric: A+Ox3, euthymic affect Results & Data Results & Data ([facility]) Vital Signs (Past 12 Hours) Vital Signs Temp Pulse Resp BP Pulse Ox 11/08/20 15:39 37 C 57 L 16 114/73 98 Laboratory Results Laboratory Results - last 24 hr 11/07/20 11/07/20 11/08/20 20:57 22:01 01:22 WBC RBC Hgb Hct MCV MCH MCHC RDW Std Deviation RDW Coeff of Carlos Plt Count MPV Immature Gran % (Auto) Neut % (Auto) Lymph % (Auto) [place] % (Auto) Eos % (Auto) Baso % (Auto) Neut # (Auto) Lymph # (Auto) [place] # (Auto) Eos # (Auto) Baso # (Auto) Immature Gran # (Auto) Sodium Potassium Chloride Carbon Dioxide Anion Gap BUN Creatinine Est Cr Clr Drug Dosing Est GFR ( Amer) Est GFR (Non-Af Amer) BUN/Creatinine Ratio Glucose POC Glucose 84 97 179 H Calcium Magnesium 11/08/20 11/08/20 11/08/20 04:17 05:49 05:49 WBC 9.93 RBC 4.03 L Hgb 11.7 L Hct 35.5 L MCV 88.1 MCH 29.0 MCHC 33.0 RDW Std Deviation 42.2 RDW Coeff of Carlos 13.0 Plt Count 182 MPV 10.6 H Immature Gran % (Auto) 0.2 Neut % (Auto) 84.5 Lymph % (Auto) 9.3 [place] % (Auto) 5.9 Eos % (Auto) 0.0 Baso % (Auto) 0.1 Neut # (Auto) 8.39 H Lymph # (Auto) 0.92 L [place] # (Auto) 0.59 Eos # (Auto) 0.00 Baso # (Auto) 0.01 Immature Gran # (Auto) 0.02 Sodium 140 Potassium 3.4 L Chloride 106 Carbon Dioxide 26 Anion Gap 8.0 BUN 12 Creatinine 0.72 Est Cr Clr Drug Dosing 165.8 Est GFR ( Amer) > 150.0 Est GFR (Non-Af Amer) 130.6 BUN/Creatinine Ratio 16.9 Glucose 209 H POC Glucose 200 H Calcium 8.3 L Magnesium 1.5 L 11/08/20 17:28 WBC RBC Hgb Hct MCV MCH MCHC RDW Std Deviation RDW Coeff of Carlos Plt Count MPV Immature Gran % (Auto) Neut % (Auto) Lymph % (Auto) [place] % (Auto) Eos % (Auto) Baso % (Auto) Neut # (Auto) Lymph # (Auto) [place] # (Auto) Eos # (Auto) Baso # (Auto) Immature Gran # (Auto) Sodium Potassium Chloride Carbon Dioxide Anion Gap BUN Creatinine Est Cr Clr Drug Dosing Est GFR ( Amer) Est GFR (Non-Af Amer) BUN/Creatinine Ratio Glucose POC Glucose 139 H Calcium Magnesium PG Care Time/CCT Total # of Minutes Spent Total Time Spent with Patient: Total time spent is greater than 50% in coordination of care (as documented) at patient's floor/unit and/or counseling patient: Coding Level of Care Code 56291 Subseq Obs Care Lvl 2 Diagnoses Gastroparesis K31.84 Type I diabetes mellitus E10.9 Methadone dependence F11.20 Marijuana use F12.90 Hypomagnesemia E83.42 Hypokalemia E87.6
[2020-11-08] MEDS: MAGNESIUM OXIDE 400 MG TAB PO SCH (20:48)
[2020-11-08] MEDS: ACETAMINOPHEN 325 MG TAB PO PRN (20:48)
[2020-11-08] MEDS: MELATONIN 3 MG TAB PO SCH (20:48)
[2020-11-09] MEDS: METOCLOPRAMIDE HCL 10 MG TABLET PO SCH (05:23)
[2020-11-09] MEDS ORDERED: METOCLOPRAMIDE HCL 10 MG TABLET PO PRN (07:32)
[2020-11-09] MEDS: NSS + 20MEQ KCL 20 MEQ/1,000 ML BAG IV SCH ×3 (07:57→16:51)
[2020-11-09] MEDS: ACETAMINOPHEN 325 MG TAB PO PRN (07:58)
[2020-11-09 07:59] LABS: BUN Creatinine Ratio 14.9 (10-20); Blood Urea Nitrogen 10 mg/dl (7-18); Calcium 8.6 mg/dl (8.5-10.1); Carbon Dioxide 28 mmol/L (21-32); Chloride 112 mmol/L (98-107); Creatinine Clr Calc Pharmacy 180.9 ml/min; Est GFR (African American) > 150.0 ml/min; Est GFR (Non-African American) 135.3 ml/min; Glucose 54 mg/dl (70-99); Magnesium 1.8 mg/dl (1.8-2.4); Potassium 3.6 mmol/L (3.5-5.1); Sodium 144 mmol/L (136-145)
[2020-11-09] MEDS: NovoLOG INSULIN PUMP SCH ×4 (08:13→21:03)
[2020-11-09] MEDS: METHADONE HCL 10 MG TAB PO SCH (08:22)
[2020-11-09] MEDS: MAGNESIUM OXIDE 400 MG TAB PO SCH ×2 (08:23→20:29)
[2020-11-09] MEDS: PANTOprazole 40 MG TAB PO SCH (10:14)
--- NOTE | 2020-11-09 11:45 | Hospitalist Progress Note ---
Date of Service November 09, 2020 Assessment & Plan (1) Gastroparesis: Cannot rule out that his presentation is from THC hyperemesis syndrome. His mother has migraines so he could have true cyclic vomiting syndrome. Regardless his symptoms are resolved today. Cont IV Fluids. Decreased to 80mls/hr today. Advance to regular Type I diabetic diet for dinner. Reglan PRN. He has frequent admissions for this issue - consider prophylaxis (elavil, etc). (2) Type I diabetes mellitus: Hypoglycemic episode this AM. Continue to monitor glucose. Cont home insulin pump Hgb A1C pending. (3) Methadone dependence: Patient is on 8mg daily and follows with a local methadone clinic. Ordered 10mg as inpatient as 8mg tablets not available. He is trying to wean off methadone in the outpatient setting under the clinic's direction. UA tox screen negative for methadone. I did discuss with the [place] Meth[facility]one clinic as well as our inpatient lab. Confirmed he received his last outpatient dose of 8mg of Methadone at the [place] clinic on 11/06. Per the lab, metabolites only reflexively ordered for a positive methadone screen. Tox screen for inpatient is not a good tool to confirm the patient's compliance with dosing, and low doses of methadone may not demonstrate a positive result. (4) Marijuana use: Ideally he d/c all THC use in light of his GI issues (5) Hypomagnesemia: Resolved. 1.8 this morning. (6) Hypokalemia: Resolved. 3.6 this AM. (7) Back spasm: He c/o back spasms this morning. He has been lying in bed for 2 days with little ambulation. Tylenol PRN for pain. I have encouraged ambulation to the hallway and sitting in the chair to help alleviate the symptoms. Continue to monitor. Patient encouraged to ambulate the hallways and shower today. If tolerating regular diet, N/V resolved, and ambulating the halls; possible d/c in AM. Admission and Anticipated Discharge Date Admission Date: November 07, 2020 Supervising Physician Co-Signing Physician Notes Attending Attestation - Care plan extensively d/w PATRICK Mccauley. Chart reviewed in entirety. I also discussed the pt's care plan with the patient himself by phone. I agree w/ the gonzales components of Ms Mccauley's documentation. During my phone conversation with Luis I recommended the following adjustments to his insulin pump in light of frequent lows -- daytime basal rate -- lower from 1.2 U/hr to 1 U/hr night-time basal rate -- (starts at 9pm) -- lower from 1 U/hr to 0.8 U/hr check a 0200 BSG to see what nocturnal control he has. repeat labs in am. other plans per Ms Mccauley. change observation status to full admission status Jon Juarez MD Subjective 25 yo male admitted with gastroparesis and cyclical vomiting. He has been admitted for this issue in the past. Patient reports his n/v have resolved and he is tolerating full liquids this morning. Per nursing, the patient has been eating very little. He was noted to be hypoglycemic this morning with a glucose of 56. She reports he needed coaxing to drink orange juice as he was reportedly asymptomatic. RN also reporting the patient has not been getting out of bed to walk and has refused to shower. He c/o intermittent back spasms this morning. Patient feels he is ready for discharge, and would recover better at home. Review of Systems Constitutional: no fever and no chills Eyes: no worsening vision Ear, Nose, Mouth, Throat: no dizziness Respiratory: no dyspnea Cardiovascular: no chest pain Gastrointestinal: no abdominal pain, no nausea and no vomiting Musculoskeletal: intermittent back spasms Psychiatric: no confusion Physical Exam Physical Exam: Temp Pulse Resp BP Pulse Ox 36.7 C 75 16 116/72 99 11/09/20 07:15 11/09/20 07:15 11/09/20 07:15 11/09/20 07:15 11/09/20 07:15 Patient is afebrile. Vital signs stable. Constitutional: average body habitus; no acute distress ENMT: Ears: no hearing impairment Neck: trachea midline, no thyromegaly Respiratory: normal respiratory effort, lungs clear to auscultation Cardiovascular: RRR, no murmur, no edema Gastrointestinal (Abdomen): Inspection/Auscultation: normal bowel sounds Percussion/Palpation: abdomen soft; abdomen nontender Psychiatric: A+Ox3, euthymic affect Lymphatic: + cervical lymphadenopathy (slightly enlarged cervical lymphnodes- non-tender) Results & Data Results & Data ([facility]) Vital Signs (Past 12 Hours) Vital Signs Temp Pulse Resp BP Pulse Ox 11/09/20 07:15 36.7 C 75 16 116/72 99 PG Care Time/CCT Total # of Minutes Spent Total Time Spent with Patient: Total time spent is greater than 50% in coordination of care (as documented) at patient's floor/unit and/or counseling patient: Coding Level of Care Code 05646 Subseq Hosp Care Lvl 2 Diagnoses Gastroparesis K31.84 Type I diabetes mellitus E10.9 Methadone dependence F11.20 Marijuana use F12.90 Hypomagnesemia E83.42 Hypokalemia E87.6 Back spasm M62.830
[2020-11-09] MEDS: CARBOHYDRATES FOR HYPOGLYCEMIA PO PRN ×2 (17:14→17:29)
[2020-11-09] MEDS: MELATONIN 3 MG TAB PO SCH (20:29)
[2020-11-10 00:06] LABS: Marijuana Quant, GCMS Urine >5000 ng/mL (<5)
[2020-11-10 07:06] LABS: Estimated Average Glucose 166 mg/dl; Hemoglobin A1C 7.4 % (4.5-5.6)
[2020-11-10] MEDS: NovoLOG INSULIN PUMP SCH ×2 (08:50→13:11)
[2020-11-10] MEDS: MAGNESIUM OXIDE 400 MG TAB PO SCH (08:50)
[2020-11-10] MEDS: PANTOprazole 40 MG TAB PO SCH (08:51)
[2020-11-10] MEDS: METHADONE HCL 10 MG TAB PO SCH (08:53)
[2020-11-10 08:54] LABS: BUN Creatinine Ratio 10.8 (10-20); Blood Urea Nitrogen 7 mg/dl (7-18); Calcium 8.7 mg/dl (8.5-10.1); Carbon Dioxide 30 mmol/L (21-32); Chloride 110 mmol/L (98-107); Est GFR (African American) > 150.0 ml/min; Est GFR (Non-African American) 132.9 ml/min; Glucose 40 mg/dl (70-99); Potassium 3.3 mmol/L (3.5-5.1); Sodium 145 mmol/L (136-145)
[2020-11-10] MEDS ORDERED: POTASSIUM CHLORIDE CRTAB 20 MEQ TABCR PO STA (09:58)
--- NOTE | 2020-11-10 13:51 | Discharge Summary ---
Date of Service November 10, 2020 Admission HPI Per Admitting Provider This is a 25-year-old male with past medical history gastroparesis, cyclic vomiting syndrome, marijuana abuse, methadone dependent that presents today complaining of intractable nausea vomiting. This is consistent with his usual symptoms of gastroparesis. Patient had trials of medications in the ER, told me the Zofran and Ativan seemed to work although he is still extremely nauseous and is now being placed in observation. Patient denies any change in bowel habits. He does have some mild pain in the abdomen. He has been able to tolerate solids or liquids in the emergency room. Patient was given Phenergan, Zofran, and Ativan by the [facility] in the ER, patient is now resting comfortably. Discharge Exam Constitutional well developed and well nourished; no acute distress and no altered mental status ENMT external ear and nose normal, oropharynx normal Respiratory normal respiratory effort, lungs clear to auscultation Cardiovascular Rate/Rhythm: regular rate and regular rhythm Heart Sounds: normal S1 and normal S2; no murmur Vessels: posterior tibial pulses present and dorsalis pedis pulses present; no JVD Extremities: no edema Gastrointestinal (Abdomen) normal bowel sounds, soft, nontender, no hepatosplenomegaly Skin no rashes, warm and dry Psychiatric A+Ox3, euthymic affect Discharge Data Allergies Allergy/AdvReac Type Severity Reaction Status Date / Time Cephalosporins Allergy Intermediate Hives Verified 11/07/20 15:18 Sulfa (Sulfonamide Allergy Intermediate Hives Verified 11/07/20 15:18 Antibiotics) azithromycin [From Zithromax] AdvReac Intermediate Hives Verified 11/07/20 15:18 Consultations 11/07/20 17:12 ED Decision to Admit Stat Hospital Course (1) Gastroparesis: I cannot rule out that his presentation is from THC hyperemesis syndrome. His mother has migraines so he could have true cyclic vomiting syndrome. Regardless his symptoms are improved today. Cont IV Fluids. Advance to full liquids in am. Make reglan PRN starting tomorrow am. labs in am. He has frequent admissions for this issue - consider prophylaxis (elavil, etc). (2) Type I diabetes mellitus: Cont home insulin pump check a1c in am BSGs thus far controlled w/ current pump settings (3) Methadone dependence: Patient is on 10 mg daily and follows with a local methadone clinic. He is trying to wean off methadone in the outpatient setting under the clinic's direction. (4) Marijuana use: Ideally he d/c all THC use in light of his GI issues (5) Hypomagnesemia: replace IV mag recheck level am (6) Hypokalemia: replete repeat BMP am (7) Back spasm: Discharge Plan Discharge Items Patient Disposition: Home - Self-Care Reason For Visit: Severe, intractable Nausea/vomiting Discharge Diagnosis: Flare-up of gastroparesis vs "cyclic vomiting syndrome" - resolved Activity: Resume your previous activity Driving/Machine Use: no driving until blood sugars are resolved Non-emergency contact: Primary Care Provider and Specialist Call non-emergency contact if: you have any medication questions, your symptoms worsen and you have a fever Follow-up/Referrals: [facility] Endocrinology [Provider Group] (Diabetes Clinic with Ms Elen Albert - project management instructor - , 11/13/20, at 1030am. ) Oneil Tinajero MD [Primary Care Provider] - (see Dr Tinajero in 1-2 weeks) Diet: Carb Count or DM1 Addtl Attending Provider Instructions: Luis, You were admitted for severe nausea with vomiting. These symptoms could have been from a "flare" of your gastroparesis condition, "cyclic vomiting syndrome" (we previously termed this condition "abdominal migraine"), and/or from marijuana use. You improved with IV fluids, anti-nausea medications, and time. If you continue with severe, recurrent episodes of this you may be a good candidate to take prophylactic medication on daily basis to prevent these episodes. You could see a GI specialist to explore this option. Please try to avoid use of marijuana as marijuana use can lead to nausea/vomiting spells like this. During this stay and previous hospital stays, you have had very low blood sugars between 7am and 8am. We adjusted your pump and changed your basal rates to -- 9pm to the morning -- 0.8 units/hour morning to 9pm -- 1 unit/hour You will be seeing the restrictive preparation operator later this week for additional assistance to avoid these lows. Please check your sugar 4 times daily and bring those values to the appointment. Finally, take 3 days of a potassium supplement; you can start this today. Follow-up - see separate section Return to [facility] if - * you have fever over 100.5 degrees * you have recurrent nausea/vomiting that is not responding to your medications * you have persistently high blood sugars or persistently low blood sugars * any other concerns Stay well! -Dr Juarez Pending Studies at Discharge: No Stand-Alone Forms: My [facility], Smoking Cessation Medications and DC Order Prescriptions: New potassium chloride 20 mEq tablet extended release 20 meq PO DAILY 3 Days Qty: 3 RF: 0 Continued (DME) lancets [OneTouch Delica Lancets] 33 gauge misc See Rx Instructions .ROUTE .MEDSUPPLY Qty: 100 RF: 0 (DME) blood sugar diagnostic Strip See Rx Instructions .ROUTE .MEDSUPPLY Qty: 10 RF: 0 diphenhydramine HCl [Benadryl] 25 mg Capsule 25 mg PO HS PRN (Reason: Sleep) RF: 0 melatonin 5 mg Tablet 5 mg PO HS RF: 0 promethazine 25 mg tablet 25 mg PO TID PRN (Reason: nausea) RF: 0 ondansetron 4 mg tablet,disintegrating 4 mg PO TID PRN (Reason: Nausea) RF: 0 metoclopramide HCl [Reglan] 10 mg tablet 10 mg PO Q6H PRN (Reason: nausea and vomiting) Qty: 10 RF: 2 glucagon 3 mg/actuation spray,non-aerosol 3 mg INTNAS DIRECTED PRN (Reason: Hypoglycemia) RF: 0 insulin aspart U-100 [Novolog U-100 Insulin aspart] 100 unit/mL solution 100 unit continuous subcutaneous infusion CONTINOUS RF: 0 pantoprazole [Protonix] 40 mg tablet,delayed release (DR/EC) 40 mg PO DAILY Qty: 30 RF: 0 promethazine 25 mg suppository 25 mg MN Q6H PRN (Reason: nausea/vomiting) Qty: 12 RF: 0 Changed methadone 10 mg/mL Concentrate 8 mg PO DAILY Qty: 0 RF: 0 Discharge Orders: Discharge Order (Routine); Ordered 11/10/20 Ordered By: oJn Juarez Admission Data Admit Date/Time: 11/09/20 19:27 Attending Provider: Jon Juarez Admit Provider: Preston Peña Primary Care Provider: Oneil Tinajero Other Providers: Jon Juarez Coding Diagnoses Gastroparesis K31.84 Type I diabetes mellitus E10.9 Methadone dependence F11.20 Marijuana use F12.90 Hypomagnesemia E83.42 Hypokalemia E87.6 Back spasm M62.830
== END 2020-11-10 14:59 | disposition home or self-care (01) ==
LOC: ED 12:37 → 3W 12:37 → SUATTDRO 18:58 → 3W 20:54

== ENCOUNTER 2020-12-11 08:53 | Observation (INO) ==
[2020-12-11] MEDS ORDERED: ONDANSETRON INJ 2 MG/ML 2 ML VIAL IV STA (09:14)
[2020-12-11] MEDS ORDERED: SODIUM CHLORIDE 0.9% 1000ML 2,000 ML IV ONE (09:46)
[2020-12-11] MEDS ORDERED: METOCLOPRAMIDE HCL INJ 5 MG/ML 2 ML VIAL IV STA (09:50)
--- NOTE | 2020-12-11 09:50 | Emergency Department Note ---
Impression & Plan Vomiting, Intractable vomiting with nausea, Abnormal CT of the abdomen, Hematemesis, Gastroparesis ED Provider Note NAME: ANISH SINGH AGE: 25 SEX: M : 1995 ARRIVES VIA: Walk-In INFORMANT: Patient ED PROVIDER(S): Jose Greene DO CHIEF COMPLAINT: Vomiting HPI: Patient is a 25-year-old male who presents the ER for nausea, vomiting, and diffuse pain. Notes he woke up this morning and has been having profuse nausea and vomiting. He has been unable to eat or drink anything. He had this earlier in the week. He is type I diabetic. He has not been checking his sugars today. Denies any headache or change in vision. No chest pain, cough, runny nose, loss of taste or smell. No other exacerbating or remitting factors. He admits this feels exactly his previous bouts of gastroparesis. He did stop smoking marijuana about 2 weeks ago. ROS: See above HPI for pertinent positives & negatives. A total of 10 systems reviewed and were otherwise negative. PAST MEDICAL HISTORY:See Below PAST SURGICAL HISTORY:See Below FAMILY HISTORY:See Below SOCIAL HISTORY:See Below HOME MEDICATIONS:See Below ALLERGIES:See Below VITALS:See Below PHYSICAL EXAMINATION: GENERAL: Sitting up in bed, alert, ill-appearing, disheveled, pale, holding an emesis bag with bile present EYE EXAM: normal conjunctiva. OROPHARYNX: no exudate, no erythema, lips, buccal mucosa, and tongue normal and mucous membranes are dry NECK: supple, no nuchal rigidity, no adenopathy, non-tender LUNGS: Clear to auscultation. Normal chest wall mechanics HEART: no murmurs, S1 normal and S2 normal ABDOMEN: abdomen soft, non-tender, normo-active bowel sounds, no masses, no rebound or guarding. UPPER EXTREMITIES: upper extremities are grossly normal. LOWER EXTREMITIES: No pitting edema. NEURO EXAM: Normal sensorium, cranial nerves II-XII grossly intact, normal speech, no gross weakness of arms, no gross weakness of legs. MEDICAL DECISION MAKING: Patient is a 25-year-old male with a history of gastroparesis type I diabetic has not been checking his sugars and had a persistent Vomiting since this morning.IV was established blood work obtained. Labs show no significant leukocytosis or anemia. BMP with mild hypokalemia. Slight gap at 13 but CO2 was 25. Not suggestive of DKA. Sugar was only 2-400 down to 190 3:05 liters of IV fluids. Bilirubin LFTs were unremarkable. Lipase was normal. Covid was negative. CT abdomen pelvis showedQuestionable SMA syndrome. Reviewed with Dr. Lynn from [facility] as this patient does follow with [facility] troenterology. Fevers that this is likely not an acute issue and they agree. Patient was given an GI cocktail and vomited again. He has been unable to tolerate anything by mouth while in the ER. Patient received multiple doses of Reglan Zofran and Phenergan and still has vomiting. He was discussed with the hospitalist for further evaluation After observation in the ER for about 7 hours. Observation Status: Indication: Vomiting Patient with no pertinent family history, was seen first at 0930 hrs and was necessary in order to determine medical stability and avoid unnecessary admission. Upon reevaluation, 7 hours of observation revealed that the patient should be admitted. Disposition date and time 12/11/20 At 4 PM. Triage Nursing notes reviewed. Limited review of prior medical records performed Vital Signs: reviewed and remarkable for no significant abnormalities Differential diagnosis: Differential diagnoses includes but is not limited to gastritis, peptic ulcer disease, GERD, gallbladder disease, pancreatitis, small bowel obstruction, acute coronary syndrome, pericarditis, ischemic bowel, irritable bowel disease, irritable bowel syndrome, appendicitis, diverticulitis, malignancy, hernia, urin belen tract infection, torsion, /ectopic (if female), perforation, trauma, infectious. ER treatment provided: See below Diagnostics interpreted by me: ECG: none Cardiac Monitoring: An order was placed for continuous cardiac monitoring. The monitor shows a rate of 72 with sinus rhythm. Laboratory studies: As stated above and show below. Imaging studies: CT abdomen pelvis as discussed above Consultation(s): Discussed with Dr. Vicente Tamez for further evaluation Procedures: none Critical Care: None Past Med/Surg History Medical History (Updated 12/11/20 @ 15:52 by Jose Greene DO) Anemia Cyclic vomiting syndrome Gastroparesis Hepatitis History of opioid abuse Hypokalemia Hypomagnesemia Intractable cyclical vomiting with nausea Marijuana use Methadone dependence Pneumomediastinum Soft tissue abscess Type I diabetes mellitus Surgical History No pertinent past surgical history Family History Father Valvular heart disease Mother Hypothyroidism Other Cancer Diabetes Heart disease Hypertension Social History (Updated 12/11/20 @ 15:25 by Jon Juarez) Smoking Status: Former smoker Tobacco Type: Cigarettes and E-cigarettes / Vaping Smoking End Date: age 22; Second Hand Exposure: No; Hx Alcohol Use: No Hx Substance Use: Yes Prescribed Medications: Opiates Prescribed Medications Comment: methadone maintenance clinic - [place] Non-Prescribed Medications: Marijuana Last Used Substance: Days (ago) Substance Use Type Other:: heroin - past history of Preferred Language: Swazi Communication Ability: Effective Ferryboat [employer] Required: No Beliefs That Will Affect Care: None marital status: Single Current Living Situation: Parent Feels Safe at Home: Yes Assistive Devices: None Allergies Allergies Allergy/AdvReac Type Severity Reaction Status Date / Time Cephalosporins Allergy Intermediate Hives Verified 12/11/20 10:33 Sulfa (Sulfonamide Allergy Intermediate Hives Verified 12/11/20 10:33 Antibiotics) azithromycin [From Zithromax] AdvReac Intermediate Hives Verified 12/11/20 10:33 Home Meds Home Medications Medication Instructions Recorded Confirmed glucagon 3 mg INTNAS DIRECTED PRN 01/26/20 12/11/20 melatonin 5 mg PO HS 05/15/20 12/11/20 blood sugar diagnostic #10 ea 09/22/20 09/22/20 lancets 33 gauge #100 ea 09/22/20 09/22/20 insulin aspart U-100 [Novolog 0 unit CONTINUOUS SUBCUTANEOUS 11/07/20 12/11/20 U-100 Insulin aspart] INFUSION CONTINOUS methadone 6 mg PO QAM 12/09/20 12/11/20 pantoprazole [Protonix] 40 mg PO DAILYBB 12/09/20 12/11/20 Previous Rx's Medication Instructions Recorded promethazine 25 mg FL Q6H PRN #12 ea 11/10/20 Results & Data (ED) Vital Signs Vital Signs - 24 hr 12/11/20 08:54 12/11/20 12:52 Temperature 36.3 C L Temperature Source Temporal Artery Scan Pulse Rate 98 H Pulse Rate [Radial] 70 Pulse Rhythm Regular Pulse Strength Normal Respiratory Rate 18 20 Respiratory Effort / Characteristics Non-Labored Spontaneous Respiratory Depth Normal Normal Respiratory Pattern Regular Blood Pressure 137/74 Blood Pressure [Left Arm] 128/77 Blood Pressure Mean 95 Blood Pressure Mean [Left Arm] 94 Blood Pressure Position Sitting Pulse Oximetry 97 98 Oxygen Delivery Method Room Air Room Air Sepsis Recent Fever Within 48 Hours No Sepsis New/Unexplained Change in Mental Status No Sepsis Action Taken by Nursing No Action Required Laboratory Data Result diagrams: 12/11/20 09:51 12/11/20 09:51 Lab Results 12/11/20 12/11/20 12/11/20 Range/Units 09:43 09:51 09:51 WBC 10.53 (4.8-10.8) K/uL RBC 5.09 (4.7-6.1) M/uL Hgb 14.8 (14.0-18.0) g/dL Hct 44.9 (42-52) % MCV 88.2 (80-100) fL MCH 29.1 (25-34) pg MCHC 33.0 (32-36) g/dL RDW Std Deviation 42.3 (36.4-46.3) fL RDW Coeff of Carlos 13.1 (11.5-14.5) % Plt Count 258 (130-400) K/uL MPV 10.3 (7.4-10.4) fL Immature Gran % (Auto) 0.3 % Neut % (Auto) 85.0 % Lymph % (Auto) 9.8 % Dukes % (Auto) 4.5 % Eos % (Auto) 0.2 % Baso % (Auto) 0.2 % Neut # (Auto) 8.96 H (1.4-6.5) K/uL Lymph # (Auto) 1.03 L (1.2-3.4) K/uL Dukes # (Auto) 0.47 (0.11-0.59) K/uL Eos # (Auto) 0.02 (0-0.5) K/uL Baso # (Auto) 0.02 (0-0.2) K/uL Immature Gran # (Auto) 0.03 H (0.00-0.02) K/uL Sodium 135 L (136-145) mmol/L Potassium 3.3 L D (3.5-5.1) mmol/L Chloride 97 L (98-107) mmol/L Carbon Dioxide 25 (21-32) mmol/L Anion Gap 13.0 H (3-11) BUN 16 (7-18) mg/dl Creatinine 1.12 (0.6-1.4) mg/dl Est Cr Clr Drug Dosing 107.9 ml/min Est GFR ( Amer) 106.0 ml/min Est GFR (Non-Af Amer) 91.5 ml/min BUN/Creatinine Ratio 14.6 (10-20) Glucose 224 H (70-99) mg/dl POC Glucose 223 H (70-99) mg/dl Calcium 9.8 (8.5-10.1) mg/dl Magnesium (1.8-2.4) mg/dl Total Bilirubin 0.9 (0.2-1) mg/dl AST 11 L (15-37) U/L ALT 17 (12-78) U/L Alkaline Phosphatase 68 (45-117) U/L Total Protein 8.5 H (6.4-8.2) gm/dl Albumin 5.0 (3.4-5.0) gm/dl Globulin 3.5 (2.5-4.0) gm/dl Albumin/Globulin Ratio 1.4 (0.9-2) Lipase 69 L (73-393) U/L COVID-19 Eval Order SARS-CoV-2 (PCR) (Negative) 12/11/20 12/11/20 12/11/20 Range/Units 09:51 12:44 14:45 WBC (4.8-10.8) K/uL RBC (4.7-6.1) M/uL Hgb (14.0-18.0) g/dL Hct (42-52) % MCV (80-100) fL MCH (25-34) pg MCHC (32-36) g/dL RDW Std Deviation (36.4-46.3) fL RDW Coeff of Carlos (11.5-14.5) % Plt Count (130-400) K/uL MPV (7.4-10.4) fL Immature Gran % (Auto) % Neut % (Auto) % Lymph % (Auto) % Dukes % (Auto) % Eos % (Auto) % Baso % (Auto) % Neut # (Auto) (1.4-6.5) K/uL Lymph # (Auto) (1.2-3.4) K/uL Dukes # (Auto) (0.11-0.59) K/uL Eos # (Auto) (0-0.5) K/uL Baso # (Auto) (0-0.2) K/uL Immature Gran # (Auto) (0.00-0.02) K/uL Sodium (136-145) mmol/L Potassium (3.5-5.1) mmol/L Chloride (98-107) mmol/L Carbon Dioxide (21-32) mmol/L Anion Gap (3-11) BUN (7-18) mg/dl Creatinine (0.6-1.4) mg/dl Est Cr Clr Drug Dosing ml/min Est GFR ( Amer) ml/min Est GFR (Non-Af Amer) ml/min BUN/Creatinine Ratio (10-20) Glucose (70-99) mg/dl POC Glucose 195 H (70-99) mg/dl Calcium (8.5-10.1) mg/dl Magnesium 2.0 (1.8-2.4) mg/dl Total Bilirubin (0.2-1) mg/dl AST (15-37) U/L ALT (12-78) U/L Alkaline Phosphatase (45-117) U/L Total Protein (6.4-8.2) gm/dl Albumin (3.4-5.0) gm/dl Globulin (2.5-4.0) gm/dl Albumin/Globulin Ratio (0.9-2) Lipase (73-393) U/L COVID-19 Eval Order Covid19 at [facility] SARS-CoV-2 (PCR) (Negative) 12/11/20 Range/Units 14:45 WBC (4.8-10.8) K/uL RBC (4.7-6.1) M/uL Hgb (14.0-18.0) g/dL Hct (42-52) % MCV (80-100) fL MCH (25-34) pg MCHC (32-36) g/dL RDW Std Deviation (36.4-46.3) fL RDW Coeff of Carlos (11.5-14.5) % Plt Count (130-400) K/uL MPV (7.4-10.4) fL Immature Gran % (Auto) % Neut % (Auto) % Lymph % (Auto) % Dukes % (Auto) % Eos % (Auto) % Baso % (Auto) % Neut # (Auto) (1.4-6.5) K/uL Lymph # (Auto) (1.2-3.4) K/uL Dukes # (Auto) (0.11-0.59) K/uL Eos # (Auto) (0-0.5) K/uL Baso # (Auto) (0-0.2) K/uL Immature Gran # (Auto) (0.00-0.02) K/uL Sodium (136-145) mmol/L Potassium (3.5-5.1) mmol/L Chloride (98-107) mmol/L Carbon Dioxide (21-32) mmol/L Anion Gap (3-11) BUN (7-18) mg/dl Creatinine (0.6-1.4) mg/dl Est Cr Clr Drug Dosing ml/min Est GFR ( Amer) ml/min Est GFR (Non-Af Amer) ml/min BUN/Creatinine Ratio (10-20) Glucose (70-99) mg/dl POC Glucose (70-99) mg/dl Calcium (8.5-10.1) mg/dl Magnesium (1.8-2.4) mg/dl Total Bilirubin (0.2-1) mg/dl AST (15-37) U/L ALT (12-78) U/L Alkaline Phosphatase (45-117) U/L Total Protein (6.4-8.2) gm/dl Albumin (3.4-5.0) gm/dl Globulin (2.5-4.0) gm/dl Albumin/Globulin Ratio (0.9-2) Lipase (73-393) U/L COVID-19 Eval Order SARS-CoV-2 (PCR) NEGATIVE (Negative) Administered Medications Potassium Chloride (K Haja / Wtr) 10 meq in 100 mls @ 100 mls/hr IV Q1H YUE Stop: 12/11/20 16:29 Last Admin: 12/11/20 14:41 Dose: 100 mls/hr Documented by: [id number] Discontinued Medications Al Hydrox/Mg Hydrox/Simethicone (Gi Cocktail Ed Use) 1 dose PO ONE ONE Stop: 12/11/20 13:52 Last Admin: 12/11/20 14:01 Dose: Not Given Documented by: [id number] Sodium Chloride (Nss 1000ml) 2,000 mls @ 999 mls/hr IV .Q2H1M ONE Stop: 12/11/20 11:46 Last Infusion: 12/11/20 12:18 Dose: 0 mls/hr Documented by: [id number] Admin: 12/11/20 09:54 Dose: 999 mls/hr Documented by: [id number] Promethazine HCl (Phenergan) 12.5 mg in 50.5 mls @ 202 mls/hr IV NOW STA Stop: 12/11/20 11:31 Last Infusion: 12/11/20 12:00 Dose: 0 mls/hr Documented by: [id number] Admin: 12/11/20 11:27 Dose: 202 mls/hr Documented by: [id number] Sodium Chloride (Nss 1000ml) 1,000 mls @ 999 mls/hr IV .Q1H1M ONE Stop: 12/11/20 13:36 Last Infusion: 12/11/20 13:52 Dose: 0 mls/hr Documented by: [id number] Admin: 12/11/20 12:47 Dose: 999 mls/hr Documented by: [id number] Famotidine (Pepcid 20mg Iv Push) 20 mg in 5 mls @ 2.5 mls/min IV NOW STA Stop: 12/11/20 13:52 Last Admin: 12/11/20 14:00 Dose: 2.5 mls/min Documented by: [id number] Ioversol (Optiray 320 100ml) 95 ml IV ONCE ONE Stop: 12/11/20 12:34 Last Admin: 12/11/20 12:34 Dose: 95 ml Documented by: [id number] Metoclopramide HCl (Metoclopramide Hcl Inj 5 Mg/Ml 2 Ml Vial) 5 mg IV NOW STA Stop: 12/11/20 09:51 Last Admin: 12/11/20 09:56 Dose: 5 mg Documented by: [id number] Metoclopramide HCl (Metoclopramide Hcl Inj 5 Mg/Ml 2 Ml Vial) 5 mg IV ONE ONE Stop: 12/11/20 11:18 Last Admin: 12/11/20 11:27 Dose: 5 mg Documented by: [id number] Ondansetron HCl (Ondansetron Inj 2 Mg/Ml 2 Ml Vial) 4 mg IV NOW STA Stop: 12/11/20 09:15 Last Admin: 12/11/20 09:56 Dose: 4 mg Documented by: [id number] Potassium Chloride (Potassium Chloride 20 Meq/15 Ml Udc) 20 meq PO NOW STA Stop: 12/11/20 13:53 Last Admin: 12/11/20 14:01 Dose: 20 meq Documented by: [id number] Imaging Data Radiologist's Impression: Abdomen/Pelvis CT 12/11/20 09:45 CT SCAN OF THE ABDOMEN AND PELVIS WITH IV CONTRAST CLINICAL HISTORY: Generalized abdominal pain. Vomiting. COMPARISON STUDY: Abdominal CT dated 12/09/2020. TECHNIQUE: Following the IV administration of 95 cc of Optiray 320, CT scan of the abdomen and pelvis is performed from the lung bases to the proximal femora. Images are reviewed in the axial, sagittal, and coronal planes. IV contrast was administered without complication. A dose lowering technique was utilized adhering to the principles of ALARA. CT DOSE: 279.39 mGy.cm FINDINGS: Lung bases: The heart is normal in size and without pericardial effusion. The lung bases are clear. The distal esophagus appears thick walled and edematous with surrounding inflammation. Liver: The contrast-enhanced liver is normal in size, contour, and attenuation. There is no intrahepatic biliary ductal dilatation. The hepatic veins and portal veins are patent. Gallbladder: Mildly distended but otherwise normal in appearance. Spleen: Normal in size and attenuation. Pancreas: Atrophic for age. Adrenal glands: Unremarkable. Kidneys: The contrast enhanced kidneys are normal in size and without hydronephrosis. The kidneys enhance symmetrically. Abdominal vasculature: The abdominal aorta is normal in course and caliber. Bowel: There is rectosigmoid fecal retention. There is no bowel obstruction. The stomach is moderately distended and fluid-filled. There is an acute angle between the superior mesenteric artery and the abdominal aorta with narrowing of the duodenum at this level. There is underdistention of the left colon. The appendix is not clearly visualized. No inflammatory change is seen in the right lower quadrant. Peritoneum: There is no intraperitoneal free air or abdominal ascites. Lymphadenopathy: None. Pelvic viscera: The bladder, prostate, and seminal vesicles are normal as visualized. Skeletal structures: No lytic or blastic lesions are seen. IMPRESSION: 1. Findings are consistent with esophagitis. 2. There is no bowel obstruction. 3. There is moderate distention of the stomach. There is an acute angle between the superior mesenteric artery and the abdominal aorta with focal narrowing of the duodenum at this level. This is nonspecific but could be seen with SMA syndrome in the appropriate clinical setting. Clinical correlation will be essential. 4. The pancreas is atrophic for age. 5. Nonvisualization of the appendix. ACT 112: Negative or not required by law. Electronically signed by: Scott Gordon M.D. 12/11/2020 1:21 PM Discharge Plan Visit Data Chief Complaint: Vomiting Stated Complaint: NAUSEA,VOMITING ED Provider: Jose Greene Discharge Problem: Vomiting, Intractable vomiting with nausea, Abnormal CT of the abdomen, Hematemesis, Gastroparesis Forms Stand Alone Forms: My [facility] Prescriptions Prescriptions: No Action (DME) lancets [OneTouch Delica Lancets] 33 gauge misc See Rx Instructions .ROUTE .MEDSUPPLY Qty: 100 RF: 0 (DME) blood sugar diagnostic Strip See Rx Instructions .ROUTE .MEDSUPPLY Qty: 10 RF: 0 melatonin 5 mg Tablet 5 mg PO HS RF: 0 glucagon 3 mg/actuation spray,non-aerosol 3 mg INTNAS DIRECTED PRN (Reason: Hypoglycemia) RF: 0 insulin aspart U-100 [Novolog U-100 Insulin aspart] 100 unit/mL solution 0 unit continuous subcutaneous infusion CONTINOUS RF: 0 promethazine 25 mg suppository 25 mg FL Q6H PRN (Reason: nausea/vomiting) Qty: 12 RF: 0 pantoprazole [Protonix] 40 mg tablet,delayed release (DR/EC) 40 mg PO DAILYBB RF: 0 methadone 10 mg/mL concentrate 6 mg PO QAM RF: 0 Discharge Problem: Vomiting Qualifiers: Vomiting type: unspecified Vomiting Intractability: intractable Nausea presence: with nausea Qualified Code(s): R11.2 - Nausea with vomiting, unspecified Hematemesis Qualifiers: Nausea presence: with nausea Qualified Code(s): K92.0 - Hematemesis
[2020-12-11 10:03] LABS: Basophils # (auto) 0.02 K/uL (0-0.2); Basophils % (auto) 0.2 %; Eosinophils # (auto) 0.02 K/uL (0-0.5); Eosinophils % (auto) 0.2 %; Hematocrit (blood only) 44.9 % (42-52); Hemoglobin 14.8 g/dL (14.0-18.0); Immature Granulocytes # (auto) 0.03 K/uL (0.00-0.02); Immature Granulocytes % (auto) 0.3 %; Lymphocytes # (auto) 1.03 K/uL (1.2-3.4); Lymphocytes % (auto) 9.8 %; Mean Corpuscular Hemoglobin 29.1 pg (25-34); Mean Corpuscular Volume 88.2 fL (80-100); Mean Platelet Volume 10.3 fL (7.4-10.4); Monocytes # (auto) 0.47 K/uL (0.11-0.59); Monocytes % (auto) 4.5 %; Neutrophils # (auto) 8.96 K/uL (1.4-6.5); Platelet Count 258 K/uL (130-400); RDW Coefficient of Variation 13.1 % (11.5-14.5); RDW Standard Deviation 42.3 fL (36.4-46.3); Red Blood Count 5.09 M/uL (4.7-6.1); White Blood Count 10.53 K/uL (4.8-10.8)
[2020-12-11 10:24] LABS: BUN Creatinine Ratio 14.6 (10-20); Calcium 9.8 mg/dl (8.5-10.1); Creatinine Clr Calc Pharmacy 107.9 ml/min; Est GFR (Non-African American) 91.5 ml/min; Potassium 3.3 mmol/L (3.5-5.1)
[2020-12-11 10:26] LABS: Albumin Globulin Ratio 1.4 (0.9-2); Bilirubin,Total 0.9 mg/dl (0.2-1); Globulin 3.5 gm/dl (2.5-4.0); Total Protein 8.5 gm/dl (6.4-8.2)
[2020-12-11] MEDS ORDERED: PROMETHAZINE 12.5 MG/50.5 ML BAG IV STA (11:17)
[2020-12-11] MEDS ORDERED: METOCLOPRAMIDE HCL INJ 5 MG/ML 2 ML VIAL IV ONE (11:17)
[2020-12-11] MEDS ORDERED: OPTIRAY 320 100ml IV ONE (12:33)
[2020-12-11] MEDS ORDERED: SODIUM CHLORIDE 0.9% 1000ML 1,000 ML IV ONE (12:36)
--- NOTE | 2020-12-11 13:22 | CT Scan Report ---
CT SCAN OF THE ABDOMEN AND PELVIS WITH IV CONTRAST CLINICAL HISTORY: Generalized abdominal pain. Vomiting. COMPARISON STUDY: Abdominal CT dated 12/09/2020. TECHNIQUE: Following the IV administration of 95 cc of Optiray 320, CT scan of the abdomen and pelvi s is performed from the lung bases to the proximal femora. Images are reviewed in the axial, sagittal , and coronal planes. IV contrast was administered without complication. A dose lowering technique wa s utilized adhering to the principles of ALARA. CT DOSE: 279.39 mGy.cm FINDINGS: Lung bases: The heart is normal in size and without pericardial effusion. The lung bases are clear. T he distal esophagus appears thick walled and edematous with surrounding inflammation. Liver: The contrast-enhanced liver is normal in size, contour, and attenuation. There is no intrahepa tic biliary ductal dilatation. The hepatic veins and portal veins are patent. Gallbladder: Mildly distended but otherwise normal in appearance. Spleen: Normal in size and attenuation. Pancreas: Atrophic for age. Adrenal glands: Unremarkable. Kidneys: The contrast enhanced kidneys are normal in size and without hydronephrosis. The kidneys enh ance symmetrically. Abdominal vasculature: The abdominal aorta is normal in course and caliber. Bowel: There is rectosigmoid fecal retention. There is no bowel obstruction. The stomach is moderatel y distended and fluid-filled. There is an acute angle between the superior mesenteric artery and the abdominal aorta with narrowing of the duodenum at this level. There is underdistention of the left co shaquille. The appendix is not clearly visualized. No inflammatory change is seen in the right lower quadr ant. Peritoneum: There is no intraperitoneal free air or abdominal ascites. Lymphadenopathy: None. Pelvic viscera: The bladder, prostate, and seminal vesicles are normal as visualized. Skeletal structures: No lytic or blastic lesions are seen. IMPRESSION: 1. Findings are consistent with esophagitis. 2. There is no bowel obstruction. 3. There is moderate distention of the stomach. There is an acute angle between the superior mesenter ic artery and the abdominal aorta with focal narrowing of the duodenum at this level. This is nonspec ific but could be seen with SMA syndrome in the appropriate clinical setting. Clinical correlation wi ll be essential. 4. The pancreas is atrophic for age. 5. Nonvisualization of the appendix. ACT 112: Negative or not required by law. Electronically signed by: Scott Gordon M.D. 12/11/2020 1:21 PM
[2020-12-11] MEDS ORDERED: FAMOTIDINE 20MG IV PUSH 20 MG/5 ML SYR IV STA (13:51)
[2020-12-11] MEDS ORDERED: GI COCKTAIL ED USE PO ONE (13:51)
[2020-12-11] MEDS ORDERED: POTASSIUM CHLORIDE 20 MEQ/15 ML UDC PO STA (13:52)
[2020-12-11] MEDS: POTASSIUM CHLORIDE / WTR 10 MEQ/100 ML PLCT IV SCH ×2 (14:41→21:24)
--- NOTE | 2020-12-11 14:46 | History & Physical Report ---
Date of Service December 11, 2020 Assessment & Plan (1) Intractable vomiting with nausea: Very similar presentation today to previous episodes and hospital stays. Patient attributes his current symptoms to his methadone being weaned last week. Past episodes, however, have been attributed to gastroparesis vs cyclic vomiting syndrome vs THC hyperemesis syndrome. Today's CT abd/pelvis suggests the possibility of SMA syndrome. He has had numerous CTs in the past including just 2 days ago; there have never been findings to suggest this diagnosis. [id number] will have GI evaluate him. Plan - * NPO except meds * IV fluids * scheduled reglan 10mg IV q6h * ativan IV prn * zofran IV prn * obtain EKG in am to ensure QT interval is wnl * GI consultation ([facility]) * labs in am * urine drug screen - check for THC; he denies any recent usage but will obtain UDS * check u/a - ensure no UTI, etc. * IV PPI If he truly has component of cyclic vomiting syndrome - consider prophylactic medication ?? Of note - he is not acidotic to suggest DKA. (2) Diabetes mellitus type 1 with complications: Continue insulin pump with current settings (basal rates - AM to nightfall 1 unit/hr; PM to AM is 0.8 units/hr). if his control is poor on current pump settings can remove pump and change to SC insulin OR use IV insulin. During past stays he has been generally well-controlled with his pump. No DKA at this time. (3) Gastroparesis: see above in "nausea/vomiting." This must be a presumed diagnosis as I cannot find record of a gastric emptying study confirming this diagnosis. Perhaps done at [facility] or the [facility] system?? (4) Hypokalemia: replace, repeat BMP am. check mag level now. (5) Abnormal CT of the abdomen: ?findings to suggest SMA syndrome?? Again no previous imaging study has ever shown concerns for this. [facility] consult placed. (6) Back pain: paraspinal voltaren gel qid. k-pad also ordered. (7) Esophagitis: likely due to frequent episodes of emesis esophageal inflammation was seen on CT today IV protonix bid not sure of when his last egd was but certainly may be worthwhile to consider one to rule out other pathology causing his frequent episodes of nausea and emesis (celiac, etc) History of Present Illness Chief Complaint: nausea/vomiting Primary Care Provider: Oneil Tinajero MD 25yo male with T1DM on insulin pump along with gastroparesis and ?cyclic vomiting syndrome - well-known to the hospitalist service for numerous admissions for intractable nausea/vomiting - presents with same. Symptoms began on Tuesday with nausea, emesis and inability to eat/drink. He last ate on Tuesday. Tolerating minimal amounts of liquid. Has modest upper abdominal pain (high epigastric region) and belching. No blood in vomit. Last stool was normal with no BRB or melena. No diarrhea. No fevers/chills. On Tuesday he visited our ER, had negative CT abd/pelvis, received fluids with anti-emetics, and was d/c home. Returns today because of refractory symptoms despite use of phenergan and zofran at home. Emesis at this point is essentially just dry heaves. Patient denies any recent THC use. He did have his methadone dose decreased to 6mg/day last week and feels that this decrease may have triggered his current flare of nausea/emesis. Denies tobacco use. Denies etoh use. BSGs at home have been 200 or higher with insulin pump in place. Allergies Allergy/AdvReac Type Severity Reaction Status Date / Time Cephalosporins Allergy Intermediate Hives Verified 12/11/20 10:33 Sulfa (Sulfonamide Allergy Intermediate Hives Verified 12/11/20 10:33 Antibiotics) azithromycin [From Zithromax] AdvReac Intermediate Hives Verified 12/11/20 10:33 Home Medications Medication Instructions Recorded Confirmed Type glucagon 3 mg INTNAS DIRECTED PRN 01/26/20 12/11/20 History melatonin 5 mg PO HS 05/15/20 12/11/20 History blood sugar diagnostic #10 ea 09/22/20 09/22/20 History lancets 33 gauge #100 ea 09/22/20 09/22/20 History insulin aspart U-100 [Novolog 0 unit CONTINUOUS SUBCUTANEOUS 11/07/20 12/11/20 History U-100 Insulin aspart] INFUSION CONTINOUS promethazine 25 mg CO Q6H PRN #12 ea 11/10/20 12/11/20 Rx methadone 6 mg PO QAM 12/09/20 12/11/20 History pantoprazole [Protonix] 40 mg PO DAILYBB 12/09/20 12/11/20 History Past Med/Surg History Medical History (Updated 12/12/20 @ 08:01 by Jon Juarez) Anemia Cyclic vomiting syndrome Gastroparesis Hepatitis History of opioid abuse Hypokalemia Hypomagnesemia Intractable cyclical vomiting with nausea Marijuana use Methadone dependence Pneumomediastinum Soft tissue abscess Type I diabetes mellitus Surgical History No pertinent past surgical history Family History Father Valvular heart disease Mother Hypothyroidism Other Cancer Diabetes Heart disease Hypertension Social History (Updated 12/11/20 @ 15:25 by Jon Juarez) Smoking Status: Current some day smoker Tobacco Type: Cigarettes and E-cigarettes / Vaping Smoking End Date: age 22; Second Hand Exposure: No; Hx Alcohol Use: Yes Alcohol type: beer Hx Substance Use: Yes Prescribed Medications: Opiates Prescribed Medications Comment: methadone maintenance clinic - [place] Non-Prescribed Medications: Marijuana Last Used Substance: Days (ago) Substance Use Type Other:: used marijuana two weeks ago, heroin was past use/not current Preferred Language: Latvian Communication Ability: Effective Beam House Inspector Required: No Beliefs That Will Affect Care: None marital status: Single Current Living Situation: Parent Other Information That Helps Us Care for You: No Feels Safe at Home: Yes Safety Concerns: Feels Safe At This Time Assistive Devices: None Review of Systems Constitutional: + anorexia and + weight loss; no fever, no chills and no fatigue Eyes: no worsening vision Ear, Nose, Mouth, Throat: no nasal congestion, no sore throat and no dysphagia Respiratory: no cough and no dyspnea Cardiovascular: no chest pain Gastrointestinal: + abdominal pain (upper), + belching, + nausea and + vomiting; no diarrhea/loose stools and no blood in stools Genitourinary: no dysuria Musculoskeletal: + back pain Integumentary: no rash Neurologic: no localized weakness and no loss of sensation Psychiatric: no depression Endocrine: BSGs have been 200 or higher last few days on insulin pump Hematologic / Lymphatic: no easy bruising Physical Exam Constitutional: + ill appearing; no acute distress and no altered mental status Eyes: PERRL ENMT: Mouth: + dry oral mucous membranes Neck: trachea midline, no thyromegaly Respiratory: normal respiratory effort, lungs clear to auscultation Cardiovascular: Rate/Rhythm: regular rate and regular rhythm Heart Sounds: normal S1 and normal S2; no murmur Vessels: posterior tibial pulses present and dorsalis pedis pulses present; no JVD Extremities: no edema Gastrointestinal (Abdomen): normal bowel sounds, soft, nontender, no hepatosplenomegaly Musculoskeletal: no cyanosis or clubbing, extremities motor strength 5/5 S pine: + paraspinal tenderness; no thoracic spinal tenderness and no lumbar spinal tenderness Skin: no rashes, warm and dry Neurologic: deep tendon reflexes 2+ bilaterally and moves all extremities Psychiatric: Orientation: alert and oriented x 3 Lymphatic: no cervical lymphadenopathy Results & Data Results & Data ([facility]) Vital Signs (Past 12 Hours) Vital Signs Temp Pulse Pulse Resp BP BP Pulse Ox 12/11/20 12:52 70 20 128/77 98 12/11/20 08:54 36.3 C L 98 H 18 137/74 97 Laboratory Results Labs 12/11/20 12/11/20 12/11/20 09:43 09:51 09:51 WBC 10.53 RBC 5.09 Hgb 14.8 Hct 44.9 MCV 88.2 MCH 29.1 MCHC 33.0 RDW Std Deviation 42.3 RDW Coeff of Carlos 13.1 Plt Count 258 MPV 10.3 Immature Gran % (Auto) 0.3 Neut % (Auto) 85.0 Lymph % (Auto) 9.8 Garrard % (Auto) 4.5 Eos % (Auto) 0.2 Baso % (Auto) 0.2 Neut # (Auto) 8.96 H Lymph # (Auto) 1.03 L Garrard # (Auto) 0.47 Eos # (Auto) 0.02 Baso # (Auto) 0.02 Immature Gran # (Auto) 0.03 H Sodium 135 L Potassium 3.3 L D Chloride 97 L Carbon Dioxide 25 Anion Gap 13.0 H BUN 16 Creatinine 1.12 Est Cr Clr Drug Dosing 107.9 Est GFR ( Amer) 106.0 Est GFR (Non-Af Amer) 91.5 BUN/Creatinine Ratio 14.6 Glucose 224 H POC Glucose 223 H Calcium 9.8 Total Bilirubin 0.9 AST 11 L ALT 17 Alkaline Phosphatase 68 Total Protein 8.5 H Albumin 5.0 Globulin 3.5 Albumin/Globulin Ratio 1.4 Lipase 69 L COVID-19 Eval Order 12/11/20 12/11/20 12:44 14:45 WBC RBC Hgb Hct MCV MCH MCHC RDW Std Deviation RDW Coeff of Carlos Plt Count MPV Immature Gran % (Auto) Neut % (Auto) Lymph % (Auto) Garrard % (Auto) Eos % (Auto) Baso % (Auto) Neut # (Auto) Lymph # (Auto) Garrard # (Auto) Eos # (Auto) Baso # (Auto) Immature Gran # (Auto) Sodium Potassium Chloride Carbon Dioxide Anion Gap BUN Creatinine Est Cr Clr Drug Dosing Est GFR ( Amer) Est GFR (Non-Af Amer) BUN/Creatinine Ratio Glucose POC Glucose 195 H Calcium Total Bilirubin AST ALT Alkaline Phosphatase Total Protein Albumin Globulin Albumin/Globulin Ratio Lipase COVID-19 Eval Order Covid19 at [facility] Diagnostic Findings Abdomen/Pelvis CT 12/11/20 09:45 CT SCAN OF THE ABDOMEN AND PELVIS WITH IV CONTRAST CLINICAL HISTORY: Generalized abdominal pain. Vomiting. COMPARISON STUDY: Abdominal CT dated 12/09/2020. TECHNIQUE: Following the IV administration of 95 cc of Optiray 320, CT scan of the abdomen and pelvis is performed from the lung bases to the proximal femora. Images are reviewed in the axial, sagittal, and coronal planes. IV contrast was administered without complication. A dose lowering technique was utilized adhering to the principles of ALARA. CT DOSE: 279.39 mGy.cm FINDINGS: Lung bases: The heart is normal in size and without pericardial effusion. The lung bases are clear. The distal esophagus appears thick walled and edematous with surrounding inflammation. Liver: The contrast-enhanced liver is normal in size, contour, and attenuation. There is no intrahepatic biliary ductal dilatation. The hepatic veins and portal veins are patent. Gallbladder: Mildly distended but otherwise normal in appearance. Spleen: Normal in size and attenuation. Pancreas: Atrophic for age. Adrenal glands: Unremarkable. Kidneys: The contrast enhanced kidneys are normal in size and without hydronephrosis. The kidneys enhance symmetrically. Abdominal vasculature: The abdominal aorta is normal in course and caliber. Bowel: There is rectosigmoid fecal retention. There is no bowel obstruction. The stomach is moderately distended and fluid-filled. There is an acute angle between the superior mesenteric artery and the abdominal aorta with narrowing of the duodenum at this level. There is underdistention of the left colon. The appendix is not clearly visualized. No inflammatory change is seen in the right lower quadrant. Peritoneum: There is no intraperitoneal free air or abdominal ascites. Lymphadenopathy: None. Pelvic viscera: The bladder, prostate, and seminal vesicles are normal as visualized. Skeletal structures: No lytic or blastic lesions are seen. IMPRESSION: 1. Findings are consistent with esophagitis. 2. There is no bowel obstruction. 3. There is moderate distention of the stomach. There is an acute angle between the superior mesenteric artery and the abdominal aorta with focal narrowing of the duodenum at this level. This is nonspecific but could be seen with SMA sy ndrome in the appropriate clinical setting. Clinical correlation will be essential. 4. The pancreas is atrophic for age. 5. Nonvisualization of the appendix. ACT 112: Negative or not required by law. Electronically signed by: Scott Gordon M.D. 12/11/2020 1:21 PM PG Care Time/CCT Total # of Minutes Spent Total Time Spent with Patient: Total time spent is greater than 50% in coordination of care (as documented) at patient's floor/unit and/or counseling patient: Coding Level of Care Code 50707 OBS Care - Level 3 Diagnoses Intractable vomiting with nausea R11.2 Diabetes mellitus type 1 with complications E10.8 Gastroparesis K31.[address] of the abdomen R93.5 Back pain M54.5 Back pain laterality: bilateral Back pain location: low back pain Chronicity: acute Sciatica presence: without sciatica Esophagitis K20.90 (1) Back pain Back pain laterality: bilateral Back pain location: low back pain Chronicity: acute Sciatica presence: without sciatica Qualified Code(s): M54.5 - Low back pain
[2020-12-11] MEDS ORDERED: LORazepam 0.5 MG/1 ML VIAL IV PRN (17:41)
[2020-12-11] MEDS ORDERED: ACETAMINOPHEN 325 MG TAB PO PRN (17:41)
[2020-12-11] MEDS ORDERED: ONDANSETRON INJ 2 MG/ML 2 ML VIAL IV PRN (17:41)
[2020-12-11] MEDS ORDERED: INSULIN ASPART PER UNIT SQ SCH (17:41)
[2020-12-11] MEDS: METOCLOPRAMIDE HCL INJ 5 MG/ML 2 ML VIAL IV SCH ×2 (18:09→23:45)
[2020-12-11] MEDS: DICLOFENAC SOD 1% GEL 100 GM TUBE EXT SCH ×2 (18:16→20:56)
[2020-12-11] MEDS ORDERED: GLUCOSE 10 TABS/TUBE PO PRN (20:45)
[2020-12-11] MEDS ORDERED: GLUCOSE 40% GEL 15 GM TUBE PO PRN (20:45)
[2020-12-11] MEDS ORDERED: GLUCAGON FOR INJ 1 MG VIAL SQ PRN (20:45)
[2020-12-11] MEDS ORDERED: DEXTROSE 50% 50 ML SYRINGE IV PRN (20:45)
[2020-12-11] MEDS ORDERED: CARBOHYDRATES FOR HYPOGLYCEMIA PO PRN (20:45)
[2020-12-11] MEDS ORDERED: INSULIN ASPART 100 UNITS/ML VIAL SC PRN (20:45)
[2020-12-11] MEDS: NSS + 20MEQ KCL 20 MEQ/1,000 ML BAG IV SCH (20:55)
[2020-12-11] MEDS: PANTOprazole 40 MG in SYRINGE 0 ML IV SCH (20:57)
[2020-12-11] MEDS ORDERED: MELATONIN 3 MG TAB PO SCH (21:00)
[2020-12-11] MEDS: NovoLOG INSULIN PUMP SCH (21:25)
[2020-12-12 00:09] LABS: Appearance Urine Clear (Clear); Bilirubin Urine Negative (Negative); Blood Urine Negative (Negative); Color Urine Yellow; Glucose Urine UA Negative (Negative); Ketones Urine 3+ (Negative); Leukocyte Esterase Urine Negative (Negative); Nitrite Urine Negative (Negative); Protein Urine Negative (Negative); Specific Gravity Urine 1.034 (1.000-1.030); Urobilinogen Urine Negative (Negative); pH Urine 7.5 (4.5-7.5)
[2020-12-12 00:30] LABS: Amphetamines+Metham, Urine Neg (Neg); Barbiturates, Urine Neg (Neg); Benzodiazepine, Urine Neg (Neg); Cocaine, Urine Neg (Neg); MDMA (Ecstacy), Urine Neg (Neg); Methadone, Urine Neg (Neg); Opiate, Urine Neg (Neg); Phencyclidine, Urine Neg (Neg)
[2020-12-12] MEDS: NSS + 20MEQ KCL 20 MEQ/1,000 ML BAG IV SCH ×3 (04:58→16:07)
[2020-12-12] MEDS: METOCLOPRAMIDE HCL INJ 5 MG/ML 2 ML VIAL IV SCH ×3 (05:42→17:49)
[2020-12-12] MEDS: DICLOFENAC SOD 1% GEL 100 GM TUBE EXT SCH ×3 (08:54→17:49)
[2020-12-12] MEDS: PANTOprazole 40 MG in SYRINGE 0 ML IV SCH (08:54)
[2020-12-12] MEDS ORDERED: METHADONE ORAL SOLN 2 MG/ML PO SCH (09:00)
[2020-12-12] MEDS ORDERED: PATIENT'S OWN CONTROLLED MED PO SCH (09:00)
[2020-12-12] MEDS: NovoLOG INSULIN PUMP SCH ×2 (09:12→11:52)
[2020-12-12 09:42] LABS: BUN Creatinine Ratio 12.8 (10-20); Blood Urea Nitrogen 9 mg/dl (7-18); Calcium 8.5 mg/dl (8.5-10.1); Carbon Dioxide 26 mmol/L (21-32); Chloride 106 mmol/L (98-107); Creatinine Clr Calc Pharmacy 160.2 ml/min; Est GFR (African American) > 150.0 ml/min; Est GFR (Non-African American) 129.8 ml/min; Glucose 102 mg/dl (70-99); Potassium 3.3 mmol/L (3.5-5.1); Sodium 139 mmol/L (136-145)
[2020-12-12] MEDS: POTASSIUM CHLORIDE / WTR 10 MEQ/100 ML PLCT IV SCH ×4 (11:44→16:07)
--- NOTE | 2020-12-12 15:59 | Gastrointestinal Consultation ---
Date of Consultation December 12, 2020 Assessment & Plan (1) Intractable vomiting with nausea: Trial of clears and DC pending clinical course. Continue Domperidone for gastroparesis and patient told to speak with his GI at [place] regarding possibly increasing dose up from once daily. ? SMA syndrome--no real test to see if this is causing symptoms other than surgery. Surgery would need to be done at [facility] and decision not to be taken lightly. I suggested to patient he speak with his GI at [place] and get an opinion regarding surgery or not. No acute surgery needed. History of Present Illness Reason for Consultation: ?SMA syndrome Requesting Physician: Dr Juarez Attending Physician: Carly Mccullough MD History of Present Illness cc n/v HPI Reviwed recent data in this EMR and [facility] EMR. Reviewed EGD from 10/2018 erythema of cardia, medium amount of food in fundus and body fllushed and suctioned, antrum normal with path inactive gastritis neg for H.pylori, 2nd duod normal with path neg. Pt has recurrent N/V from gastroparesis and is followed by GI in [place]. He carries a diagnosis of gastroparesis and has been on Domperidone for 2 years. At last OV 07/07/20 it was discussed that he was on 10 mg once daily with latitude up to tid. At the current time patient states he takes domperidone 10 mg daily. He is on methadone and is trying to taper off of it. He states when he steps down a dose he has more flares. He came to ER with flare of n/v and abd pain. At the present time he feels good and wants to go home. CT a/p on admit esophagitis and possible SMA syndrome with CT 12/09/20 with not suggestion of that. Allergies Allergy/AdvReac Type Severity Reaction Status Date / Time Cephalosporins Allergy Intermediate Hives Verified 12/11/20 10:33 Sulfa (Sulfonamide Allergy Intermediate Hives Verified 12/11/20 10:33 Antibiotics) azithromycin [From Zithromax] AdvReac Intermediate Hives Verified 12/11/20 10:33 Home Medications Medication Instructions Recorded Confirmed Type glucagon 3 mg INTNAS DIRECTED PRN 01/26/20 12/11/20 History melatonin 5 mg PO HS 05/15/20 12/11/20 History blood sugar diagnostic #10 ea 09/22/20 09/22/20 History lancets 33 gauge #100 ea 09/22/20 09/22/20 History insulin aspart U-100 [Novolog 0 unit CONTINUOUS SUBCUTANEOUS 11/07/20 12/11/20 History U-100 Insulin aspart] INFUSION CONTINOUS promethazine 25 mg MS Q6H PRN #12 ea 11/10/20 12/11/20 Rx methadone 6 mg PO QAM 12/09/20 12/11/20 History pantoprazole [Protonix] 40 mg PO DAILYBB 12/09/20 12/11/20 History Patient History Medical History Anemia Cyclic vomiting syndrome Gastroparesis Hepatitis History of opioid abuse Hypokalemia Hypomagnesemia Intractable cyclical vomiting with nausea Marijuana use Methadone dependence Pneumomediastinum Soft tissue abscess Type I diabetes mellitus Surgical History No pertinent past surgical history Family History Father Valvular heart disease Mother Hypothyroidism Other Cancer Diabetes Heart disease Hypertension Social History (Updated 12/11/20 @ 15:25 by Jon Juarez) Smoking Status: Current some day smoker Tobacco Type: Cigarettes and E-cigarettes / Vaping Smoking End Date: age 22; Second Hand Exposure: No; Hx Alcohol Use: Yes Alcohol type: beer Hx Substance Use: Yes Prescribed Medications: Opiates Prescribed Medications Comment: methadone maintenance clinic - [place] Non-Prescribed Medications: Marijuana Last Used Substance: Days (ago) Substance Use Type Other:: used marijuana two weeks ago, heroin was past use/not current Preferred Language: Haitian Communication Ability: Effective Agri Business Agent Required: No Beliefs That Will Affect Care: None marital status: Single Current Living Situation: Parent Other Information That Helps Us Care for You: No Feels Safe at Home: Yes Safety Concerns: Feels Safe At This Time Assistive Devices: None Review of Systems Review of Systems: All systems reviewed & are unremarkable except as noted in HPI & below Physical Exam Constitutional: well developed and well nourished Eyes: PERRL, conjunctivae normal, anicteric sclerae Neck: normal visual inspection and trachea midline Respiratory: normal respiratory effort, lungs clear to auscultation Cardiovascular: RRR, no murmur, no edema Gastrointestinal (Abdomen): normal bowel sounds, soft, nontender, no hepatosplenomegaly Musculoskeletal: no cyanosis or clubbing, extremities motor strength 5/5 Skin: warm and dry Neurologic: PERRL, EOMI, accommodation nl, no face palsy, no dysarthria Psychiatric: A+Ox3, euthymic affect Results & Data ([facility]) Vital Signs (Past 12 Hours) Vital Signs Temp Pulse Pulse Resp BP Pulse Ox 12/12/20 12:00 36.7 C 77 18 125/80 99 12/12/20 07:48 36.9 C 72 18 119/68 99 12/12/20 07:43 68
--- NOTE | 2020-12-12 17:23 | Discharge Summary ---
Date of Service December 12, 2020 Admission HPI Per Admitting Provider 25yo male with T1DM on insulin pump along with gastroparesis and ?cyclic vomiting syndrome - well-known to the hospitalist service for numerous admissions for intractable nausea/vomiting - presents with same. Symptoms began on Tuesday with nausea, emesis and inability to eat/drink. He last ate on Tuesday. Tolerating minimal amounts of liquid. Has modest upper abdominal pain (high epigastric region) and belching. No blood in vomit. Last stool was normal with no BRB or melena. No diarrhea. No fevers/chills. On Tuesday he visited our ER, had negative CT abd/pelvis, received fluids with anti-emetics, and was d/c home. Returns today because of refractory symptoms despite use of phenergan and zofran at home. Emesis at this point is essentially just dry heaves. Patient denies any recent THC use. He did have his methadone dose decreased to 6mg/day last week and feels that this decrease may have triggered his current flare of nausea/emesis. Denies tobacco use. Denies etoh use. BSGs at home have been 200 or higher with insulin pump in place. Principal Diagnosis Intractable nausea/vomiting, possible SMA syndrome, hypokalemia Discharge Exam Constitutional WD/WN, vitals as above Eyes + anicteric sclerae ENMT external ear and nose normal, oropharynx normal Neck trachea midline, no thyromegaly Respiratory normal respiratory effort, lungs clear to auscultation Cardiovascular RRR, no murmur, no edema Chest (Breasts) Chest: normal inspection of chest Gastrointestinal (Abdomen) normal bowel sounds, soft, nontender, no hepatosplenomegaly Musculoskeletal Extremities: extremities normal to inspection; no cyanosis and no clubbing Skin no rashes, warm and dry Neurologic moves all extremities and awake; no focal motor deficits Psychiatric A+Ox3, euthymic affect Lymphatic no lymphedema Discharge Data Allergies Allergy/AdvReac Type Severity Reaction Status Date / Time Cephalosporins Allergy Intermediate Hives Verified 12/11/20 10:33 Sulfa (Sulfonamide Allergy Intermediate Hives Verified 12/11/20 10:33 Antibiotics) azithromycin [From Zithromax] AdvReac Intermediate Hives Verified 12/11/20 10:33 Consultations 12/11/20 14:20 ED Decision to Admit Stat 12/11/20 17:41 Consult Gastroenterology Routine Ordered Studies 12/11/20 09:45 CT abd pelvis IV con only Stat Abdomen/Pelvis CT 12/11/20 09:45 CT SCAN OF THE ABDOMEN AND PELVIS WITH IV CONTRAST CLINICAL HISTORY: Generalized abdominal pain. Vomiting. COMPARISON STUDY: Abdominal CT dated 12/09/2020. TECHNIQUE: Following the IV administration of 95 cc of Optiray 320, CT scan of the abdomen and pelvis is performed from the lung bases to the proximal femora. Images are reviewed in the axial, sagittal, and coronal planes. IV contrast was administered without complication. A dose lowering technique was utilized adhering to the principles of ALARA. CT DOSE: 279.39 mGy.cm FINDINGS: Lung bases: The heart is normal in size and without pericardial effusion. The lung bases are clear. The distal esophagus appears thick walled and edematous with surrounding inflammation. Liver: The contrast-enhanced liver is normal in size, contour, and attenuation. There is no intrahepatic biliary ductal dilatation. The hepatic veins and portal veins are patent. Gallbladder: Mildly distended but otherwise normal in appearance. Spleen: Normal in size and attenuation. Pancreas: Atrophic for age. Adrenal glands: Unremarkable. Kidneys: The contrast enhanced kidneys are normal in size and without hydronephrosis. The kidneys enhance symmetrically. Abdominal vasculature: The abdominal aorta is normal in course and caliber. Bowel: There is rectosigmoid fecal retention. There is no bowel obstruction. The stomach is moderately distended and fluid-filled. There is an acute angle between the superior mesenteric artery and the abdominal aorta with narrowing of the duodenum at this level. There is underdistention of the left colon. The appendix is not clearly visualized. No inflammatory change is seen in the right lower quadrant. Peritoneum: There is no intraperitoneal free air or abdominal ascites. Lymphadenopathy: None. Pelvic viscera: The bladder, prostate, and seminal vesicles are normal as visualized. Skeletal structures: No lytic or blastic lesions are seen. IMPRESSION: 1. Findings are consistent with esophagitis. 2. There is no bowel obstruction. 3. There is moderate distention of the stomach. There is an acute angle between the superior mesenteric artery and the abdominal aorta with focal narrowing of the duodenum at this level. This is nonspecific but could be seen with SMA syndrome in the appropriate clinical setting. Clinical correlation will be essential. 4. The pancreas is atrophic for age. 5. Nonvisualization of the appendix. ACT 112: Negative or not required by law. Electronically signed by: Scott Gordon M.D. 12/11/2020 1:21 PM Hospital Course (1) Intractable vomiting with nausea: Very similar presentation to previous episodes requiring numerous ER visits and hospital stays. Patient attributes his current symptoms to his methadone being weaned last week. Past episodes, however, have been attributed to gastroparesis vs cyclic vomiting syndrome vs THC hyperemesis syndrome. CT abd/pelvis this admission suggests the possibility of SMA syndrome. He has had numerous CTs in the past including just 2 days prior to admission; there have never been findings to suggest this diagnosis. [id number] will had GI evaluate him. 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 The patient has remained at 1 dose once a day. Also recommended discussion with his primary GI doctor about seeing a surgeon there to discuss surgery for SMA syndrome. The patient was feeling very well and was tolerating clear liquids prior to discharge. He had his potassium replaced and was hydrated with fluids. His blood sugar was well controlled. He was given scheduled Reglan and antiemetics. Again, urine drug screen positive for marijuana patient has been counseled numerous times to discontinue marijuana use. No evidence of infection, and no evidence of DKA He is stable for discharged home. (2) Diabetes mellitus type 1 with complications: Continue insulin pump with current settings (basal rates - AM to nightfall 1 unit/hr; PM to AM is 0.8 units/hr). No DKA here Continued on his insulin pump had some hypoglycemia which was corrected and now he is doing well. (3) Gastroparesis: see above in "nausea/vomiting." This must be a presumed diagnosis as I cannot find record of a gastric emptying study confirming this diagnosis. Perhaps done at [facility] or the [facility] system?? (4) Hypokalemia: Replaced and will improve now that he is tolerating p.o. (5) Abnormal CT of the abdomen: ?findings to suggest SMA syndrome?? Again no previous imaging study has ever shown concerns for this. [facility] consult as above Follow-up with GI at [place] and possible surgical evaluation (6) Back pain: paraspinal voltaren gel qid. This can be continued upon discharge (7) Esophagitis: likely due to frequent episodes of emesis esophageal inflammation was seen on CT upon admission IV protonix bid was given and he will convert back to his p.o. Protonix on discharge GI reports last EGD was 2018 and did not suggest doing another one while here Disposition-stable for discharge to home Total Time Total Time Spent Total Time Spent (In Minutes): 35 min Total Time Includes: Examination of the Patient, Discharge Planning and Medication Reconciliation Discharge Plan Discharge Items Patient Disposition: Home - Self-Care Reason For Visit: INTRACTABLE VOMITING Discharge Diagnosis: intractable nausea/vomiting, possible SMA syndrome Condition on Discharge: Good Activity: Resume your previous activity Non-emergency contact: Primary Care Provider and Rn Admission Call non-emergency contact if: you have any medication questions and your symptoms worsen Follow-up/Referrals: Oneil Tinajero MD [Primary Care Provider] - (Follow up within 1-2 weeks.) Diet: Carb Count or DM1 Addtl Attending Provider Instructions: Please continue to advance your diet slowly as tolerated at home. Please follow up with your GI doctor at [place] and discuss increasing your dose of Domperidone to twice or three times daily. Also, please discuss about the possibility of having SMA Syndrome and if you should have a Surgery consultation at [place]. Pending Studies at Discharge: No Stand-Alone Forms: My [facility] MIOX, Smoking Cessation Medications and DC Order Prescriptions: New diclofenac sodium [Voltaren Arthritis Pain] 1 % gel 2 g topical QID Qty: 100 RF: 0 Continued (DME) lancets [OneTouch Delica Lancets] 33 gauge misc See Rx Instructions .ROUTE .MEDSUPPLY Qty: 100 RF: 0 (DME) blood sugar diagnostic Strip See Rx Instructions .ROUTE .MEDSUPPLY Qty: 10 RF: 0 melatonin 5 mg Tablet 5 mg PO HS RF: 0 glucagon 3 mg/actuation spray,non-aerosol 3 mg INTNAS DIRECTED PRN (Reason: Hypoglycemia) RF: 0 insulin aspart U-100 [Novolog U-100 Insulin aspart] 100 unit/mL solution 0 unit continuous subcutaneous infusion CONTINOUS RF: 0 promethazine 25 mg suppository 25 mg [place] Q6H PRN (Reason: nausea/vomiting) Qty: 12 RF: 0 pantoprazole [Protonix] 40 mg tablet,delayed release (DR/EC) 40 mg PO DAILYBB RF: 0 methadone 10 mg/mL concentrate 6 mg PO QAM RF: 0 Discharge Orders: Discharge Order (Routine); Ordered 12/12/20 Ordered By: Carly Mccullough Admission Data Admit Date/Time: 12/11/20 15:15 Attending Provider: Carly Mccullough Admit Provider: Jon Juarez Primary Care Provider: Oneil Tinajero Other Providers: Jon Juarez ; Nelson Lynn Coding Level of Care Code 80347 OBS Care - Discharge Diagnoses Intractable vomiting with nausea R11.2 Diabetes mellitus type 1 with complications E10.8 Gastroparesis K31.[address] of the abdomen R93.5 Back pain M54.5 Back pain laterality: bilateral Back pain location: low back pain Chronicity: acute Sciatica presence: without sciatica Esophagitis K20.90
[2020-12-14 11:36] LABS: Marijuana Quant, GCMS Urine 3875 ng/mL (<5)
--- NOTE | 2020-12-22 06:22 | Electrocardiogram Report ---
Test Reason : Blood Pressure : / mmHG Vent. Rate : 063 BPM Atrial Rate : 063 BPM P-R Int : 124 ms QRS Dur : 100 ms QT Int : 408 ms P-R-T Axes : 024 060 067 degrees QTc Int : 417 ms Normal sinus rhythm Normal ECG When compared with ECG of 15-SEP-2020 11:13, No significant change was found Confirmed by Fabian Burciaga ([id number]) on 12/12/2020 5:02:12 PM Referred By: REFERRED SELF Confirmed By:Mikey Burciaga
== END 2020-12-12 18:18 | disposition home or self-care (01) ==
LOC: 2N 08:53 → ED 08:53 → SUATTDRO 15:15 → 2N 18:39

== ENCOUNTER 2021-12-04 14:10 | Observation (INO) ==
[2021-12-04] MEDS ORDERED: FAMOTIDINE 20MG IV PUSH 20 MG/5 ML SYR IV STA (14:37)
[2021-12-04] MEDS ORDERED: SODIUM CHLORIDE 0.9% 1000ML 2,000 ML IV ONE (14:37)
[2021-12-04] MEDS ORDERED: METOCLOPRAMIDE HCL INJ 5 MG/ML 2 ML VIAL IV STA (14:38)
[2021-12-04] MEDS ORDERED: CAPSAICIN CR 0.075% 60 GM TUBE EXT STA (14:38)
[2021-12-04] MEDS ORDERED: diphenhydrAMINE 50 MG/ML VIAL IV STA (14:38)
[2021-12-04 15:23] LABS: Basophils # (auto) 0.02 K/uL (0-0.2); Basophils % (auto) 0.2 %; Eosinophils # (auto) 0.03 K/uL (0-0.5); Eosinophils % (auto) 0.3 %; Hematocrit (blood only) 37.1 % (42-52); Hemoglobin 12.3 g/dL (14.0-18.0); Immature Granulocytes # (auto) 0.04 K/uL (0.00-0.02); Immature Granulocytes % (auto) 0.4 %; Lymphocytes # (auto) 1.68 K/uL (1.2-3.4); Lymphocytes % (auto) 16.2 %; Mean Corpuscular Hemoglobin 29.4 pg (25-34); Mean Corpuscular Hgb Conc 33.2 g/dL (32-36); Mean Corpuscular Volume 88.5 fL (80-100); Mean Platelet Volume 9.3 fL (7.4-10.4); Monocytes # (auto) 0.32 K/uL (0.11-0.59); Monocytes % (auto) 3.1 %; Neutrophils # (auto) 8.26 K/uL (1.4-6.5); Neutrophils % (auto) 79.8 %; Platelet Count 370 K/uL (130-400); RDW Coefficient of Variation 12.6 % (11.5-14.5); RDW Standard Deviation 40.3 fL (36.4-46.3); Red Blood Count 4.19 M/uL (4.7-6.1); White Blood Count 10.35 K/uL (4.8-10.8)
[2021-12-04 15:55] LABS: Albumin Globulin Ratio 1.3 (0.9-2); Albumin Level 4.4 gm/dl (3.4-5.0); BUN Creatinine Ratio 23.8 (10-20); Base Excess VBG 6.2 mEq/L; Bilirubin,Total 0.5 mg/dl (0.2-1.0); Calcium 9.6 mg/dl (8.5-10.1); Creatinine Clr Calc Pharmacy 140.5 ml/min; Est GFR (Non-African American) 121.7 ml/min; Globulin 3.4 gm/dl (2.5-4.0); HCO3 VBG 30 mmol/L; PCO2 VBG 42 mmHg (38-50); PO2 VBG 26 mmHg; Potassium 3.6 mmol/L (3.5-5.1); Total Protein 7.8 gm/dl (6.0-8.3); pH VBG 7.48 (7.36-7.41)
[2021-12-04 15:56] LABS: Oxygen Saturation VBG < 60.0 %
[2021-12-04 16:36] LABS: Influenza A virus by PCR Negative (Neg); Influenza B virus by PCR Negative (Neg); RSV by PCR Negative (Neg); SARS CoV2 RNA(COVID-19) InHosp NEGATIVE (Negative)
[2021-12-04] MEDS ORDERED: SUCRALFATE 1 GM/10 ML UDC PO STA (17:00)
[2021-12-04] MEDS ORDERED: PROMETHAZINE 25 MG/51 ML BAG IV STA (17:00)
--- NOTE | 2021-12-04 17:40 | Emergency Department Note ---
Impression & Plan Intractable cyclical vomiting with nausea, Acute dehydration, Diabetes type 1, uncontrolled, Gastroparesis ED Provider Note NAME: ANISH SINGH AGE: 26 SEX: M ARRIVES VIA: Walk-In INFORMANT: Patient ED PROVIDER(S): Fidel Campo MD CHIEF COMPLAINT: Nausea and vomiting PLAN: Disposition: MEDICAL DECISION MAKING: The patient is a pleasant 26-year-old gentleman with a past medical history of type 1 diabetes, gastroparesis, history of opioid abuse, marijuana use, hyperemesis who presents to the emergency department for acute onset intractable nausea and vomiting that he reports began this morning. He reports his sugars have been running in the 150s. He reports he removed his insulin pump prior to arrival because it was due to change his tubing and did not replace it. He reports his symptoms began prior to taking his pump off. He denies any fevers, chills, cough and congestion. He reports his last episode of intractable nausea and vomiting was over 2 months ago. On arrival the patient is uncomfortable, but no acute distress, afebrile stable vital signs. He appears clinically dry. His abdomen is nontender. WBC and platelets within normal limits. H/H similar to prior values. VBG without acidemia with pH of 7.48 and otherwise unremarkable. Chemistry without metabolic acidosis. Glucose 183. LFTs unremarkable. Lipase not elevated. Covid-19 PCR negative. Influenza and RSV PCR negative. He was treated initially with IV fluid hydration, Reglan, diphenhydramine, IV Pepcid. He did have some improvement but then did have recurrence of emesis. He was additionally treated with Phenergan and Carafate and also reported some additional improvement but then had slightly less but recurrence of emesis. Given the patient's type 1 diabetes and high risk for developing DKA in the setting of intractable nausea and vomiting he does agree with plan for admission. Case was discussed with Dr. Peña, [facility] hospitalist, who will evaluate the patient for admission. Triage Nursing notes reviewed and agree them. Prior medical records reviewed Vital Signs: reviewed and remarkable for no significant abnormalities Differential diagnosis: Gastroenteritis, food borne illness, infections, appendicitis, diverticulitis, inflammatory bowel disease, obstruction, GI bleed, biliary pathology, volvulus, as well as other pathologies. ER treatment provided: See below. Diagnostics interpreted by me: Cardiac Monitoring: An order for continuous cardiac monitoring was placed and d emonstrated NSR, 76 bpm, no ectopy. Laboratory studies: See below Imaging studies: See below Consultation(s): Case was discussed with Dr. Peña, [facility] hospitalist, who will evaluate the patient for admission. HPI: The patient is a pleasant 26-year-old gentleman with a past medical history of type 1 diabetes, gastroparesis, history of opioid abuse, marijuana use, hyperemesis who presents to the emergency department for acute onset intractable nausea and vomiting that he reports began this morning. He reports his sugars have been running in the 150s. He reports he removed his insulin pump prior to arrival because it was due to change his tubing and did not replace it. He reports his symptoms began prior to taking his pump off. He denies any fevers, chills, cough and congestion. He reports his last episode of intractable nausea and vomiting was over 2 months ago. ROS: See above HPI for pertinent positives & negatives. A total of 10 systems reviewed and were otherwise negative. VITALS:See Below PHYSICAL EXAMINATION: GENERAL: Awake, alert, uncomfortable-appearing, in no distress HENT: Normocephalic, atraumatic. Oropharynx with dry mucous membranes and otherwise unremarkable. EYES: Normal conjunctiva. Sclera non-icteric. NECK: Supple. No nuchal rigidity. FROM. No JVD. RESPIRATORY: Clear to auscultation. CARDIAC: Regular rate, normal rhythm. Extremities warm and well perfused. Pulses equal. ABDOMEN: Soft, non-distended. No tenderness to palpation. No rebound or guarding. No masses. RECTAL: Deferred. MUSCULOSKELETAL: Chest examination reveals no tenderness. The back is symmetrical on inspection without obvious abnormality. There is no CVA tenderness to palpation. No joint edema. LOWER EXTREMITIES: Calves are equal size bilaterally and non-tender. No edema. No discoloration. NEURO: Normal sensorium. No sensory or motor deficits noted. SKIN: No rash or jaundice noted. Fidel Campo MD Past Med/Surg History Medical History Anemia Cyclic vomiting syndrome Diabetes type 1, uncontrolled Gastroparesis Hematemesis Hepatitis History of opioid abuse Hypokalemia Hypomagnesemia Intractable cyclical vomiting with nausea Intractable vomiting with nausea Marijuana use Methadone dependence Pneumomediastinum Soft tissue abscess Type I diabetes mellitus Surgical History No pertinent past surgical history Family History Father Valvular heart disease Mother Hypothyroidism Other Cancer Diabetes Heart disease Hypertension Social History Smoking Status: Former smoker Tobacco Type: E-cigarettes / Vaping Cigarettes Per Day: 3; Smoking End Date: 3-4 yrs ago; Second Hand Exposure: No; Do You Dip or Chew Tobacco: No; Hx Alcohol Use: No Hx Substance Use: Yes Prescribed Medications: Opiates Non-Prescribed Medications: Marijuana Last Used Substance: Days (ago) Substance Use Type Other:: 1 week ago Preferred Language: Irish Communication Ability: Effective Poultry Helper Required: No Beliefs That Will Affect Care: None marital status: Single Current Living Situation: Parent current occupational status: unemployed Other Information That Helps Us Care for You: No Feels Safe at Home: Yes Safety Concerns: Feels Safe At This Time during the past year weight has: decreased > 10 lbs Assistive Devices: Glasses Allergies Allergies Allergy/AdvReac Type Severity Reaction Status Date / Time Cephalosporins Allergy Intermediate Hives Verified 10/04/21 08:54 Sulfa (Sulfonamide Allergy Intermediate Hives Verified 10/04/21 08:54 Antibiotics) azithromycin [From Zithromax] AdvReac Intermediate Hives Verified 10/04/21 08:54 Home Meds Home Medications Medication Instructions Recorded Confirmed melatonin 5 mg tablet 5 mg PO HS 05/15/20 10/04/21 insulin aspart U-100 100 unit/mL 60 unit SUBCUT QAM 10/04/21 10/04/21 subcutaneous solution Previous Rx's Medication Instructions Recorded blood sugar diagnostic (Contour #400 ea 08/06/21 Next Test Strips) glucagon 3 mg/actuation nasal 3 mg INTNAS DIRECTED PRN #2 ea 11/02/21 spray (Baqsimi) Results & Data (ED) Vital Signs Vital Signs - 24 hr 12/04/21 14:20 12/04/21 14:37 12/04/21 17:28 Temperature 36.7 C Temperature Source Temporal Artery Scan Pulse Rate 76 Pulse Rate [Left Finger] 88 Respiratory Rate 20 20 Respiratory Effort / Characteristics Non-Labored Spontaneous Respiratory Depth Normal Respiratory Pattern Regular Blood Pressure 132/84 Blood Pressure [Left Arm] 108/75 Blood Pressure Mean 100 Blood Pressure Mean [Left Arm] 86 Pulse Oximetry 99 98 Oxygen Delivery Method Room Air Room Air Room Air Sepsis Recent Fever Within 48 Hours No Sepsis New/Unexplained Change in Mental Status No Sepsis Action Taken by Nursing No Action Required 12/04/21 18:17 Temperature Temperature Source Pulse Rate Pulse Rate [Left Finger] 88 Respiratory Rate 16 Respiratory Effort / Characteristics Respiratory Depth Respiratory Pattern Blood Pressure Blood Pressure [Left Arm] 123/75 Blood Pressure Mean Blood Pressure Mean [Left Arm] 91 Pulse Oximetry 97 Oxygen Delivery Method Room Air Sepsis Recent Fever Within 48 Hours Sepsis New/Unexplained Change in Mental Status Sepsis Action Taken by Nursing Laboratory Data Attestation: I reviewed the patient's lab results. Result diagrams: 12/04/21 15:06 12/04/21 15:06 Lab Results 12/04/21 12/04/21 12/04/21 Range/Units 15:06 15:06 15:06 WBC 10.35 (4.8-10.8) K/uL RBC 4.19 L (4.7-6.1) M/uL Hgb 12.3 L (14.0-18.0) g/dL Hct 37.1 L (42-52) % MCV 88.5 (80-100) fL MCH 29.4 (25-34) pg MCHC 33.2 (32-36) g/dL RDW Std Deviation 40.3 (36.4-46.3) fL RDW Coeff of Carlos 12.6 (11.5-14.5) % Plt Count 370 (130-400) K/uL MPV 9.3 (7.4-10.4) fL Immature Gran % (Auto) 0.4 % Neut % (Auto) 79.8 % Lymph % (Auto) 16.2 % Mills % (Auto) 3.1 % Eos % (Auto) 0.3 % Baso % (Auto) 0.2 % Neut # (Auto) 8.26 H (1.4-6.5) K/uL Lymph # (Auto) 1.68 (1.2-3.4) K/uL Mills # (Auto) 0.32 (0.11-0.59) K/uL Eos # (Auto) 0.03 (0-0.5) K/uL Baso # (Auto) 0.02 (0-0.2) K/uL Immature Gran # (Auto) 0.04 H (0.00-0.02) K/uL VBG pH 7.48 H (7.36-7.41) VBG pCO2 42 (38-50) mmHg VBG pO2 26 mmHg VBG HCO3 30 mmol/L VBG O2 Saturation < 60.0 % VBG Base Excess 6.2 mEq/L Barometric Pressure 729.1 mm/Hg Sodium 140 (136-145) mmol/L Potassium 3.6 (3.5-5.1) mmol/L Chloride 102 (98-107) mmol/L Carbon Dioxide 29 (21-32) mmol/L Anion Gap 9 (3-11) BUN 20 (6-23) mg/dl Creatinine 0.84 (0.6-1.4) mg/dl Est Cr Clr Drug Dosing 140.5 ml/min Est GFR ( Amer) 141.0 ml/min Est GFR (Non-Af Amer) 121.7 ml/min BUN/Creatinine Ratio 23.8 H (10-20) Glucose 183 H (70-99(Fasting)) mg/dl Calcium 9.6 (8.5-10.1) mg/dl Total Bilirubin 0.5 (0.2-1.0) mg/dl AST 15 (13-39) U/L ALT 20 (7-52) U/L Alkaline Phosphatase 125 H (34-104) U/L Total Protein 7.8 (6.0-8.3) gm/dl Albumin 4.4 (3.4-5.0) gm/dl Globulin 3.4 (2.5-4.0) gm/dl Albumin/Globulin Ratio 1.3 (0.9-2) Lipase 15 (11-82) U/L SARS-CoV-2 (PCR) (Negative) Influenza Type A (PCR) (Neg) Influenza Type B (PCR) (Neg) RSV (RT-PCR) (Neg) 12/04/21 Range/Units 15:30 WBC (4.8-10.8) K/uL RBC (4.7-6.1) M/uL Hgb (14.0-18.0) g/dL Hct (42-52) % MCV (80-100) fL MCH (25-34) pg MCHC (32-36) g/dL RDW Std Deviation (36.4-46.3) fL RDW Coeff of Carlos (11.5-14.5) % Plt Count (130-400) K/uL MPV (7.4-10.4) fL Immature Gran % (Auto) % Neut % (Auto) % Lymph % (Auto) % Mills % (Auto) % Eos % (Auto) % Baso % (Auto) % Neut # (Auto) (1.4-6.5) K/uL Lymph # (Auto) (1.2-3.4) K/uL Mills # (Auto) (0.11-0.59) K/uL Eos # (Auto) (0-0.5) K/uL Baso # (Auto) (0-0.2) K/uL Immature Gran # (Auto) (0.00-0.02) K/uL VBG pH (7.36-7.41) VBG pCO2 (38-50) mmHg VBG pO2 mmHg VBG HCO3 mmol/L VBG O2 Saturation % VBG Base Excess mEq/L Barometric Pressure mm/Hg Sodium (136-145) mmol/L Potassium (3.5-5.1) mmol/L Chloride (98-107) mmol/L Carbon Dioxide (21-32) mmol/L Anion Gap (3-11) BUN (6-23) mg/dl Creatinine (0.6-1.4) mg/dl Est Cr Clr Drug Dosing ml/min Est GFR ( Amer) ml/min Est GFR (Non-Af Amer) ml/min BUN/Creatinine Ratio (10-20) Glucose (70-99(Fasting)) mg/dl Calcium (8.5-10.1) mg/dl Total Bilirubin (0.2-1.0) mg/dl AST (13-39) U/L ALT (7-52) U/L Alkaline Phosphatase (34-104) U/L Total Protein (6.0-8.3) gm/dl Albumin (3.4-5.0) gm/dl Globulin (2.5-4.0) gm/dl Albumin/Globulin Ratio (0.9-2) Lipase (11-82) U/L SARS-CoV-2 (PCR) NEGATIVE (Negative) Influenza Type A (PCR) Negative (Neg) Influenza Type B (PCR) Negative (Neg) RSV (RT-PCR) Negative (Neg) Administered Medications Lactated Ringer's (Lr) 1,000 mls @ 125 mls/hr IV .Q8H YUE Stop: 01/03/22 18:29 Last Admin: 12/04/21 20:00 Dose: 125 mls/hr Documented by: [id number] Lactated Ringer's (Lr) 1,000 mls @ 125 mls/hr IV .Q8H YUE Stop: 01/03/22 21:24 Last Admin: 12/04/21 21:58 Dose: 125 mls/hr Documented by: [id number] Metoclopramide HCl (Metoclopramide Hcl Inj 5 Mg/Ml 2 Ml Vial) 10 mg IV Q6H YUE Stop: 01/03/22 21:59 Last Admin: 12/04/21 21:57 Dose: 10 mg Documented by: [id number] Ondansetron HCl (Ondansetron Inj 2 Mg/Ml 2 Ml Vial) 4 mg IV Q6H PRN PRN Reason: Nausea Stop: 01/03/22 21:24 Last Admin: 12/04/21 21:57 Dose: 4 mg Documented by: [id number] Discontinued Medications Capsaicin (Capsaicin Cr 0.075% 60 Gm Tube) 1 appln EXT NOW STA Stop: 12/04/21 14:39 Last Admin: 12/04/21 15:33 Dose: 1 appln Documented by: [id number] Diphenhydramine HCl (Diphenhydramine 50 Mg/Ml Vial) 25 mg IV NOW STA Stop: 12/04/21 14:39 Last Admin: 12/04/21 15:33 Dose: 25 mg Documented by: [id number] Sodium Chloride (Nss 1000ml) 2,000 mls @ 999 mls/hr IV .Q2H1M ONE Stop: 12/04/21 16:37 Last Infusion: 12/04/21 18:00 Dose: 0 mls/hr Documented by: [id number] Admin: 12/04/21 15:33 Dose: 999 mls/hr Documented by: [id number] Famotidine (Pepcid 20mg Iv Push) 20 mg in 5 mls @ 2.5 mls/min IV NOW STA Stop: 12/04/21 14:38 Last Admin: 12/04/21 15:33 Dose: 2.5 mls/min Documented by: [id number] Promethazine HCl (Phenergan) 25 mg in 51 mls @ 204 mls/hr IV NOW STA Stop: 12/04/21 17:14 Last Infusion: 12/04/21 18:00 Dose: 0 mls/hr Documented by: [id number] Admin: 12/04/21 17:28 Dose: 204 mls/hr Documented by: [id number] Ioversol (Optiray 320 100ml) 95 ml IV ONCE ONE Stop: 12/04/21 19:47 Last Admin: 12/04/21 19:47 Dose: 95 ml Documented by: [id number] Metoclopramide HCl (Metoclopramide Hcl Inj 5 Mg/Ml 2 Ml Vial) 10 mg IV NOW STA Stop: 12/04/21 14:39 Last Admin: 12/04/21 15:33 Dose: 10 mg Documented by: [id number] Sucralfate (Sucralfate 1 Gm/10 Ml Udc) 1 gm PO NOW STA Stop: 12/04/21 17:01 Last Admin: 12/04/21 17:28 Dose: 1 gm Documented by: [id number] Discharge Plan Visit Data Chief Complaint: Vomiting Stated Complaint: VOMITING, [place] ED Provider: Fidel Campo Discharge Problem: Intractable cyclical vomiting with nausea, Acute dehydration, Diabetes type 1, uncontrolled, Gastroparesis Patient Disposition: Admitted As Inpatient Discharge Instructions Interventions: ED Discharge Assessment Last Done: 12/04/21 20:46 Discharge Problem: Diabetes type 1, uncontrolled Qualifiers: Glycemic state: with hyperglycemia Qualified Code(s): E10.65 - Type 1 diabetes mellitus with hyperglycemia
--- NOTE | 2021-12-04 18:31 | History & Physical Report ---
Date of Service December 04, 2021 Assessment & Plan (1) Intractable cyclical vomiting with nausea: Plan: - NPO with IVF - Reglan 10mg IV q6h - IV Zofran prn - 40 mg IV Protonix BID. - CT A/P ordered. - UA and UDS ordered, given hx of marijuana and opioid use. [facility], no longer sees them. (2) Gastroparesis: Plan: - Management as above. - States he was seen by [facility] several months ago. (3) Diabetes type 1, uncontrolled: Plan: -Does not have his insulin pump with him, therefore consult placed to pharmacy to assist with insulin management - No DKA at this time. Plan: - Observation on Med/Surg. - SCDs for DVT ppx. - Full Code. History of Present Illness Chief Complaint: n/v Primary Care Provider: Lex Peralta MD Brandon Tijerina is a 26 y/o male with T1DM on insulin pump along with gastroparesis, cannabis and opioid use, and ? cyclical vomiting syndrome who presents today with nausea and vomiting that started this morning. Around 9 AM, symptoms began and he has been unable to tolerate much p.o. liquids since then. Nonbloody emesis, having regular bowel movements without blood noted in them. Also notes centralized abdominal pain. Previously been in his normal state of health over the past couple days, no fever/chills abdominal pain, diarrhea. No sick contacts around him. He has Phenergan and Zofran at home which she is taken without alleviation of symptoms. He tells me he was seen by [facility] GI team several months ago, apparently was not given explanation for his frequent nausea and vomiting and was told to come to the ED for evaluation whenever it occurs. Reports sugar have been in the 150s at home. In ED, VS wnl, stable. Labs largely unremarkable, not acidodic and without AG, glucose 183. He received IVF, Reglan, diphenhydramine, IV Pepcid, Phenergan and Carafate with some alleviation of symptoms but still vomiting. Allergies Allergy/AdvReac Type Severity Reaction Status Date / Time Cephalosporins Allergy Intermediate Hives Verified 10/04/21 08:54 Sulfa (Sulfonamide Allergy Intermediate Hives Verified 10/04/21 08:54 Antibiotics) azithromycin [From Zithromax] AdvReac Intermediate Hives Verified 10/04/21 08:54 Home Medications Medication Instructions Recorded Confirmed Type melatonin 5 mg tablet 5 mg PO HS 05/15/20 10/04/21 History blood sugar diagnostic (Contour #400 ea 08/06/21 08/06/21 Rx Next Test Strips) insulin aspart U-100 100 unit/mL 60 unit SUBCUT QAM 10/04/21 10/04/21 History subcutaneous solution glucagon 3 mg/actuation nasal 3 mg INTNAS DIRECTED PRN #2 ea 11/02/21 Rx spray (Baqsimi) Past Med/Surg History Medical History Anemia Cyclic vomiting syndrome Diabetes type 1, uncontrolled Gastroparesis Hematemesis Hepatitis History of opioid abuse Hypokalemia Hypomagnesemia Intractable cyclical vomiting with nausea Intractable vomiting with nausea Marijuana use Methadone dependence Pneumomediastinum Soft tissue abscess Type I diabetes mellitus Surgical History No pertinent past surgical history Family History Father Valvular heart disease Mother Hypothyroidism Other Cancer Diabetes Heart disease Hypertension Social History Smoking Status: Former smoker Tobacco Type: E-cigarettes / Vaping Cigarettes Per Day: 3; Smoking End Date: 3-4 yrs ago; Second Hand Exposure: No; Do You Dip or Chew Tobacco: No; Hx Alcohol Use: No Hx Substance Use: Yes Prescribed Medications: Opiates Non-Prescribed Medications: Marijuana Last Used Substance: Days (ago) Substance Use Type Other:: 1 week ago Preferred Language: [place] Communication Ability: Effective Dry Boss Required: No Beliefs That Will Affect Care: None marital status: Single Current Living Situation: Parent current occupational status: unemployed Other Information That Helps Us Care for You: No Feels Safe at Home: Yes Safety Concerns: Feels Safe At This Time during the past year weight has: decreased > 10 lbs Assistive Devices: Glasses Review of Systems Review of Systems: Constitutional: No fever/chills, weakness, fatigue, myalgias, anorexia, night sweats Eyes: No diplopia, no worsening or blurred vision ENT: normal hearing, no trouble swallowing Respiratory: No cough, sputum, dyspnea at rest or on exertion Cardiovascular: No chest pain, tightness or palpitations Abdomen: generalized abdominal pain with nausea, vomiting; no diarrhea or constipation : Denies dysuria, hematuria, increased urgency/frequency, urinary retention Musculoskeletal: No joint pain, calf pain, swelling Neurologic: No weakness, numbness/tingling, or balance problems Psychiatric: No anxiety or depression Skin: No rash or itch Physical Exam Physical Exam: General: awake, alert, no apparent distress Head: Normocephalic, atraumatic ENT: PERRL, EOMI, no pharyngeal exudate, mucous membranes moist Chest: Clear to auscultation, on room air, no adventitious breath sounds Cardiac: Regular rate and rhythm, no murmur, no JVD, normal peripheral pulses, good capillary refill Abdominal: NABS x 4 quadrants, soft, nontender to palpation, no rebound, guarding or tenderness Extremities: Normal inspection, no peripheral edema or erythema, calfs nontender to palpation Psych: Normal mood and affect Neuro: AAO x 3, strength intact bilaterally and rated 5/5, no motor deficits, speech is clear, no peripheral sensory deficits Skin: no rash or erythema Results & Data Results & Data ([facility]) Vital Signs (Past 12 Hours) Vital Signs Temp Pulse Pulse Resp BP BP Pulse Ox 12/04/21 18:17 88 16 123/75 97 12/04/21 17:28 88 20 108/75 98 12/04/21 14:20 36.7 C 76 20 132/84 99 Laboratory Results Abnormal lab results 12/04/21 12/04/21 12/04/21 Range/Units 15:06 15:06 15:06 RBC 4.19 L (4.7-6.1) M/uL Hgb 12.3 L (14.0-18.0) g/dL Hct 37.1 L (42-52) % Neut # (Auto) 8.26 H (1.4-6.5) K/uL Immature Gran # (Auto) 0.04 H (0.00-0.02) K/uL VBG pH 7.48 H (7.36-7.41) BUN/Creatinine Ratio 23.8 H (10-20) Glucose 183 H (70-99(Fasting)) mg/dl Alkaline Phosphatase 125 H (34-104) U/L Code Status & VTE Plan Code Status Full code. Supervising Physician Co-Signing Physician Notes Discussed case with LORENA, agree with the note above. This is a 26-year-old with multiple visits to the ER presents with nausea vomiting. He has a history of type 1 diabetes mellitus with gastroparesis, likely cyclical vomiting syndrome exacerbated by marijuana. Patient was normoglycemic and had no evidence of ketoacidosis at the time of his evaluation. Plan to manage symptomatically, please monitor observations. Monitor laboratory work, hydrate as needed. Slight reduction in diet. GI consultation if no relief. PG Care Time/CCT Total # of Minutes Spent Total Time Spent with Patient: Total time spent is greater than 50% in coordination of care (as documented) at patient's floor/unit and/or counseling patient: Coding Level of Care Code INT OBSERVATION CARE 50M LVL 2 Diagnoses Intractable cyclical vomiting with nausea R11.15 Diabetes type 1, uncontrolled E10.65 Gastroparesis K31.84
[2021-12-04] MEDS ORDERED: PHARMACY GLYCEMIC MGMT CONSULT PRN ×2 (19:28→21:25)
[2021-12-04] MEDS ORDERED: OPTIRAY 320 100ml IV ONE (19:46)
[2021-12-04] MEDS: LACTATED RINGER'S 1,000 ML IV SCH ×2 (20:00→21:58)
--- NOTE | 2021-12-04 20:13 | CT Scan Report ---
CT abd pelvis IV con only CLINICAL HISTORY: abdominal pain, n/v COMPARISON STUDY: 06/05/2021 CT DOSE: 312.11 mGy.cm TECHNIQUE: Standard CT of the Abdomen and Pelvis was performed with IV contrast. A dose lowering rebekah hnique was utilized adhering to the principles of ALARA. Contrast Volume: Optiray 320, 95 ml. The patient did not receive oral contrast. FINDINGS: Lung base: The lung bases are clear. Abdominal cavity: There is no evidence for abdominal mass, adenopathy or ascites. Liver: There is homogeneous attenuation of the liver parenchyma. There is no evidence for enhancing m ass lesion. Spleen: There is homogeneous attenuation of the splenic parenchyma. There is no enhancing mass lesion . Pancreas: There is homogeneous attenuation of the pancreatic parenchyma. There is no evidence for mas s lesion or peripancreatic fluid collection. Gall Bladder: The gallbladder is well distended with no evidence for intraluminal calculi, wall thick ening or pericholecystic edema. Adrenal glands: The adrenal glands are normal in size and attenuation. There is no evidence for enhan cing mass lesion. Kidneys: There is homogeneous attenuation of the renal parenchyma bilaterally. There is no evidence f or renal calculus or hydronephrosis. There is no evidence for enhancing mass. Bowel: The bowel loops are normally placed within the abdomen and pelvis without evidence for dilatat ion or obstruction. There is no evidence for mass lesion. There are no inflammatory changes present. There is no evidence for free air. There is no evidence for appendix. Bladder: The bladder is within normal limits with no evidence for focal mass, calculus or diverticulu m. : There is no evidence for pelvic mass or adenopathy. There is no evidence for pelvic ascites. Vasculature: There is no evidence for aneurysmal dilatation of the abdominal aorta. Osseous structures: There is no acute osseous pathology. IMPRESSION: 1. No acute intra-abdominal or pelvic abnormality. ACT 112: Negative or not required by law. Electronically signed by: Nabil Olguin M.D. 12/04/2021 8:09 PM
[2021-12-04] MEDS ORDERED: GLUCOSE 10 TABS/TUBE PO PRN (21:25)
[2021-12-04] MEDS ORDERED: ONDANSETRON INJ 2 MG/ML 2 ML VIAL IV PRN (21:25)
[2021-12-04] MEDS ORDERED: CARBOHYDRATES FOR HYPOGLYCEMIA PO PRN (21:25)
[2021-12-04] MEDS ORDERED: GLUCAGON FOR INJ 1 MG VIAL SQ PRN (21:25)
[2021-12-04] MEDS ORDERED: DEXTROSE 50% 50 ML SYRINGE IV PRN (21:25)
[2021-12-04] MEDS ORDERED: DC ALL PREVIOUSLY ORDERED DIABETES MEDS ONE (21:25)
[2021-12-04] MEDS ORDERED: GLUCOSE 40% GEL 15 GM TUBE PO PRN (21:25)
[2021-12-04] MEDS: METOCLOPRAMIDE HCL INJ 5 MG/ML 2 ML VIAL IV SCH (21:57)
[2021-12-04] MEDS ORDERED: INSULIN GLARGINE SOLOSTAR 100 UNITS/ML 3 ML PEN SC ONE (22:15)
[2021-12-04] MEDS: PANTOprazole 40 MG in SYRINGE 0 ML IV SCH (22:23)
[2021-12-04] MEDS: INSULIN ASPART PER UNIT SC SCH (22:41)
[2021-12-05] MEDS: METOCLOPRAMIDE HCL INJ 5 MG/ML 2 ML VIAL IV SCH ×2 (03:30→10:22)
[2021-12-05] MEDS: LACTATED RINGER'S 1,000 ML IV SCH ×2 (03:36→03:38)
[2021-12-05] MEDS: INSULIN ASPART PER UNIT SC SCH ×3 (06:21→12:25)
[2021-12-05 07:52] LABS: Appearance Urine Clear (Clear); Bacteria Urine Automated Negative (Negative); Bilirubin Urine Negative (Negative); Blood Urine Negative (Negative); Color Urine Yellow; Glucose Urine UA 2+ (Negative); Ketones Urine 3+ (Negative); Leukocyte Esterase Urine Negative (Negative); Nitrite Urine Negative (Negative); Protein Urine 2+ (Negative); RBC Urine Automated 0-4 /hpf (0-4); Specific Gravity Urine 1.039 (1.000-1.030); Urobilinogen Urine Negative (Negative); pH Urine 6.5 (4.5-7.5)
[2021-12-05 08:46] LABS: Mucus Urine Present (None Prsent); Sperm Urine Present (None Prsent)
[2021-12-05] MEDS ORDERED: INSULIN GLARGINE SOLOSTAR 100 UNITS/ML 3 ML PEN SC ONE (09:00)
[2021-12-05 09:40] LABS: Amphetamines+Metham, Urine Neg (Neg); Barbiturates, Urine Neg (Neg); Benzodiazepine, Urine Neg (Neg); Cocaine, Urine Neg (Neg); MDMA (Ecstacy), Urine Neg (Neg); Methadone, Urine Neg (Neg); Opiate, Urine Neg (Neg); Phencyclidine, Urine Neg (Neg)
[2021-12-05] MEDS: PANTOprazole 40 MG in SYRINGE 0 ML IV SCH (10:22)
--- NOTE | 2021-12-05 14:55 | Discharge Summary ---
Date of Service December 05, 2021 Admission HPI Per Admitting Provider Brandon Tijerina is a 26 y/o male with T1DM on insulin pump along with gastroparesis, cannabis and opioid use, and ? cyclical vomiting syndrome who presents today with nausea and vomiting that started this morning. Around 9 AM, symptoms began and he has been unable to tolerate much p.o. liquids since then. Nonbloody emesis, having regular bowel movements without blood noted in them. Also notes centralized abdominal pain. Previously been in his normal state of health over the past couple days, no fever/chills abdominal pain, diarrhea. No sick contacts around him. He has Phenergan and Zofran at home which she is taken without alleviation of symptoms. He tells me he was seen by [facility] GI team several months ago, apparently was not given explanation for his frequent nausea and vomiting and was told to come to the ED for evaluation whenever it occurs. Reports sugar have been in the 150s at home. In ED, VS wnl, stable. Labs largely unremarkable, not acidodic and without AG, glucose 183. He received IVF, Reglan, diphenhydramine, IV Pepcid, Phenergan and Carafate with some alleviation of symptoms but still vomiting. Principal Diagnosis Intractable nausea and vomiting secondary to gastroparesis Discharge Exam GENERAL: 26 yo WD/WN WM. NAD. LUNGS: Clear to auscultation bilaterally. No W/R/R. CARDIOVASCULAR: Regular rate and rhythm. ABDOMEN: Soft, non-tender and non-distended. BS normoactive x 4 quad. EXTREMITIES: No edema. Non-tender. Peripheral pulses +2/4. NEUROLOGIC: A&O x3. PSYCHIATRIC: Cooperative. Appropriate mood and affect. SKIN: Warm, dry, intact. No rashes or lesions. Discharge Data Allergies Allergy/AdvReac Type Severity Reaction Status Date / Time Cephalosporins Allergy Intermediate Hives Verified 10/04/21 08:54 Sulfa (Sulfonamide Allergy Intermediate Hives Verified 10/04/21 08:54 Antibiotics) azithromycin [From Zithromax] AdvReac Intermediate Hives Verified 10/04/21 08:54 Consultations 12/04/21 18:05 ED Decision to Admit Stat Ordered Studies Abdomen/Pelvis CT 12/04/21 18:58 CT abd pelvis IV con only CLINICAL HISTORY: abdominal pain, n/v COMPARISON STUDY: 06/05/2021 CT DOSE: 312.11 mGy.cm TECHNIQUE: Standard CT of the Abdomen and Pelvis was performed with IV contrast. A dose lowering technique was utilized adhering to the principles of ALARA. Contrast Volume: Optiray 320, 95 ml. The patient did not receive oral contrast. FINDINGS: Lung base: The lung bases are clear. Abdominal cavity: There is no evidence for abdominal mass, adenopathy or ascites. Liver: There is homogeneous attenuation of the liver parenchyma. There is no evidence for enhancing mass lesion. Spleen: There is homogeneous attenuation of the splenic parenchyma. There is no enhancing mass lesion. Pancreas: There is homogeneous attenuation of the pancreatic parenchyma. There is no evidence for mass lesion or peripancreatic fluid collection. Gall Bladder: The gallbladder is well distended with no evidence for intraluminal calculi, wall thickening or pericholecystic edema. Adrenal glands: The adrenal glands are normal in size and attenuation. There is no evidence for enhancing mass lesion. Kidneys: There is homogeneous attenuation of the renal parenchyma bilaterally. There is no evidence for renal calculus or hydronephrosis. There is no evidence for enhancing mass. Bowel: The bowel loops are normally placed within the abdomen and pelvis without evidence for dilatation or obstruction. There is no evidence for mass lesion. There are no inflammatory changes present. There is no evidence for free air. There is no evidence for appendix. Bladder: The bladder is within normal limits with no evidence for focal mass, calculus or diverticulum. : There is no evidence for pelvic mass or adenopathy. There is no evidence for pelvic ascites. Vasculature: There is no evidence for aneurysmal dilatation of the abdominal aorta. Osseous structures: There is no acute osseous pathology. IMPRESSION: 1. No acute intra-abdominal or pelvic abnormality. ACT 112: Negative or not required by law. Electronically signed by: Nabil Olguin M.D. 12/04/2021 8:09 PM Hospital Course (1) Intractable cyclical vomiting with nausea: - pt placed in observation to med/surg unit - made NPO with IVF - IV Reglan, PPI, and Zofran ordered - UA and UDS ordered, given hx of marijuana and opioid use. Previously [facility], no longer sees them--both WNL - Pt has had no emesis since arriving to the floor on 12/04 - Diet advanced this AM to clear liquids and fluids capped - Checked w/ pt this afternoon, he tolerated clear liquid tray - Offered to advance diet and make sure he was able to tolerated prior to d/c but he deferred and stated he would like to do this at home - Rx sent for Relgan 10mg po q6h prn n/v. Ideally should be on 5mg AC but pt does not like to take it regularly. (2) Gastroparesis: - Management as above. - States he was seen by [facility] GI several months ago. - Should f/u with GI (3) Diabetes type 1, uncontrolled: -Does not have his insulin pump with him, therefore consult placed to pharmacy to assist with insulin management - No DKA at this time. - BS not terribly uncontrolled, only 3 readings >180 and this is in absence of his insulin pump - Last a1c was October 2020 in this system at 7.4% - Advised close f/u with endocrine (last saw Travis Mcnamara PA-C in Jul 2021) At this time, pt is tolerating oral intake and having no further n/v. Plan is for discharge home, he can continue advancing diet to T1DM/CC as tolerated. Rx sent for Reglan to be utilized as needed for n/v. Recommend f/u with GI and Endocrine. PCP follow up within 1 week of discharge. Above plan of care has been d/w Dr. Cabral who has also seen and evaluated this patient prior to discharge. Total Time Total Time Spent Total Time Spent (In Minutes): <30 minutes Discharge Plan Discharge Items Patient Disposition: Home - Self-Care Reason For Visit: INTRACTABLE NAUSEA, VOMITING Discharge Diagnosis: Nausea and vomiting Activity: Resume your previous activity Non-emergency contact: Primary Care Provider and Specialist Call non-emergency contact if: you have any medication questions Follow-up/Referrals: Lex Peralta MD [Primary Care Provider] - Kelby Rdz MD [Physician] - Diet: Carb Count or DM1 Addtl Attending Provider Instructions: You were hospitalized due to nausea and vomiting which is likely related to gastroparesis, a condition in which your stomach can't empty itself of food in a normal fashion. This can interfere with normal digestion and causing nausea, vomiting, and abdominal pain. It can also cause issues with your blood sugar and overall nutrition. Although there is no cure, it is possible for you to get some control of your symptoms through dietary changes and medications. You were treated here in the hospital with intravenous fluids as well as a medication called Reglan (metoclopramide) which helps to empty the stomach, which is necessary in patient's with gastroparesis. This medication can be taken scheduled or as needed. I suspect you would be better served to take this medication in a small dose before each meal. However, as you stated you do not like to take this medication regularly, I have prescribed 10mg that you can take by mouth every 6 hours as needed for nausea and/or vomiting. Your diet was advanced to clear liquids while you were here in the hospital and demonstrated that you were able to keep the liquids down without nausea or vomiting. While ideally it would be better to advance your diet to solids and ensure you can tolerate them, you have elected to go home and advance as tolerated. It is STRONGLY recommended that you have close follow up with your endoc rinologist as you haven't been seen since July and you were instructed to follow up in 6 weeks. A referral can be made if you continue to have problems with nausea and/or vomiting, to a stomach doctor to help manage your symptoms. You may benefit from additional work up such as a scope of your esophagus and stomach. However, this referral can be considered by your primary care provider based on your progress. We advise follow up with your family doctor within 1 week of discharge. If you have any questions/concerns after you are discharged, you may call the nonemergency number listed on your discharge paperwork. In the event of a medical emergency, call 911. Pending Studies at Discharge: No Stand-Alone Forms: My [facility], Smoking Cessation Medications and DC Order Prescriptions: New metoclopramide HCl [Reglan] 10 mg tablet 10 mg PO Q6H PRN (Reason: nausea and vomiting) Qty: 20 RF: 0 Continued Baqsimi 3 mg/actuation spray,non-aerosol 3 mg INTNAS DIRECTED PRN (Reason: Hypoglycemia) Qty: 2 RF: 1 (DME) Contour Next Test Strips Strip See Rx Instructions .Route Qty: 400 RF: 3 melatonin 5 mg Tablet 5 mg PO HS RF: 0 insulin aspart U-100 100 unit/mL solution 60 unit subcut QAM RF: 0 Discharge Orders: Discharge Order (Routine); Ordered 12/05/21 Ordered By: Lori Mccarty/Other Patient Handouts: Gastroparesis Admission Data Admit Date/Time: 12/04/21 18:49 Attending Provider: Andrei Cabral Admit Provider: Preston Peña Primary Care Provider: Lex Peralta Other Providers: Preston Peña Other Interventions: Discharge Summary Assessment (RN) Last Done: 12/05/21 14:49 Supervising Physician Co-Signing Physician Notes Patient seen and examined, chart reviewed, case discussed with Jessica Mccain PA-C and I agree with the assessment and plan as above except as otherwise noted. Patient seen at bedside prior to discharge. He reports he has chronic issues with stomach upset cyclical vomiting and nausea, but does feel he is near his baseline and will be better at home where he can sleep comfortably. Reports his appetite has improved and can tolerate some full liquids, and has self titrated between regular meals and clears at home many times in the past. No abdominal pain at time of discharge, denies fever/chills/sweats. Does endorse some back discomfort and notes is a history of back fractures and resultant pain which always seems worse in the hospital beds. On exam abdomen is nontender, heart rate regular, skin is warm and dry. BSG 138. Okay for discharge with close follow-up. Coding Level of Care Code 43899 OBS Care - Discharge Diagnoses Intractable cyclical vomiting with nausea R11.15 Gastroparesis K31.84 Diabetes type 1, uncontrolled E10.65 Glycemic state: with hyperglycemia
[2021-12-05] MEDS ORDERED: MELATONIN 3 MG TAB PO SCH (21:00)
[2021-12-07 08:06] LABS: Marijuana Quant, GCMS Urine 4348 ng/mL (<5)
== END 2021-12-05 16:46 | disposition home or self-care (01) ==
LOC: ED 14:10 → 3N 14:10 → SUATTDRO 18:49 → 3N 20:46

== ENCOUNTER 2022-01-25 14:29 | Inpatient (IN) ==
[2022-01-25] MEDS ORDERED: ONDANSETRON INJ 2 MG/ML 2 ML VIAL ONE (16:02)
[2022-01-25 16:20] LABS: Basophils # (auto) 0.06 K/uL (0-0.2); Basophils % (auto) 0.4 %; Hematocrit (blood only) 47.4 % (40.1-51.0); Hemoglobin 15.7 g/dl (14.0-18.0); Immature Granulocytes # (auto) 0.22 K/uL (0.00-0.02); Immature Granulocytes % (auto) 1.3 %; Lymphocytes # (auto) 1.33 K/uL (1.2-3.4); Mean Corpuscular Hemoglobin 29.8 pg (25.0-34.0); Mean Corpuscular Hgb Conc 33.1 g/dL (32.0-36.0); Mean Corpuscular Volume 89.9 fL (80.0-100.0); Mean Platelet Volume 9.6 fL (9.4-12.4); Monocytes % (auto) 3.6 %; Neutrophils # (auto) 14.44 K/uL (1.4-6.5); Neutrophils % (auto) 86.7 %; Platelet Count 395 K/uL (130-400); RDW Coefficient of Variation 12.7 % (11.5-14.5); RDW Standard Deviation 41.8 fL (36.4-46.3); Red Blood Count 5.27 M/uL (4.63-6.08); White Blood Count 16.65 K/ul (4.8-10.8)
[2022-01-25 16:55] LABS: Albumin Globulin Ratio 1.4 (0.9-2); Albumin Level 5.8 gm/dl (3.4-5.0); BUN Creatinine Ratio 14.7 (10-20); Bilirubin,Total 0.8 mg/dl (0.2-1.0); Calcium 10.6 mg/dl (8.5-10.1); Creatinine Clr Calc Pharmacy 79.1 ml/min; Est GFR (African American) 73.9 ml/min; Est GFR (Non-African American) 63.8 ml/min; Globulin 4.1 gm/dl (2.5-4.0); Potassium 3.7 mmol/L (3.5-5.1); Total Protein 9.9 gm/dl (6.0-8.3)
[2022-01-25] MEDS ORDERED: SODIUM CHLORIDE 0.9% 1000ML 2,000 ML IV ONE (17:05)
--- NOTE | 2022-01-25 17:52 | Emergency Department Note ---
History of Present Illness General Chief complaint: Vomiting Stated complaint: NAUSEA AND VOMITING Time Seen by Provider: 01/25/22 17:04 History of Present Illness Provider Complaint: + nausea, + vomiting and + abdominal pain Onset (ago): hour(s) 8 Description of Vomiting: no food contents, no bilious, no blood-streaked, no bloody or no coffee grounds Description of Diarrhea: no tarry, no blood-streaked, no bloody (bright red) or no bloody (dark red) Associated Abdominal Pain: Yes Location of pain: + diffuse Severity: moderate Quality: + cramping Pain Consistency: + intermittent Relieved By: + none Exacerbated By: + none Context: + smoking and + marijuana use Associated symptoms: no myalgias, no chest pain, no cough, no diaphoresis, no fever/chills, no headaches, no malaise, no rash, no dysuria, no shortness of breath, no weakness, no altered mental status or no palpitation HPI Narrative: Patient reports he has been having problems getting his insulin pump from [employer] and has been trying to use Lantus by himself. Patient reports smoking marijuana on Tuesday. Home Medications Medication Instructions Recorded Confirmed Type melatonin 5 mg tablet 5 mg PO HS 05/15/20 01/25/22 History blood sugar diagnostic (Contour #[id number] ea 08/06/21 08/06/21 Rx Next Test Strips) insulin aspart U-100 100 unit/mL 0 unit continuous subcutaneous 10/04/21 01/25/22 History subcutaneous solution infusion CONTINOUS glucagon 3 mg/actuation nasal 3 mg intranasal DIRECTED PRN 11/02/21 01/25/22 Rx spray (Baqsimi) Hypoglycemia #2 ea metoclopramide HCl 10 mg tablet 10 mg PO Q6H PRN nausea and 12/05/21 01/25/22 Rx (Reglan) vomiting #20 tabs Allergies Allergy/AdvReac Type Severity Reaction Status Date / Time Cephalosporins Allergy Intermediate Hives Verified 01/25/22 19:04 Sulfa (Sulfonamide Allergy Intermediate Hives Verified 01/25/22 19:04 Antibiotics) azithromycin [From Zithromax] AdvReac Intermediate Hives Verified 01/25/22 19:04 Past Med/Surg History Medical History Anemia Cyclic vomiting syndrome Diabetes type 1, uncontrolled Gastroparesis Hematemesis Hepatitis History of opioid abuse Hypokalemia Hypomagnesemia Intractable cyclical vomiting with nausea Intractable vomiting with nausea Marijuana use Methadone dependence Pneumomediastinum Soft tissue abscess Type I diabetes mellitus Surgical History No pertinent past surgical history Family History Father Valvular heart disease Mother Hypothyroidism Other Cancer Diabetes Heart disease Hypertension Social History Smoking Status: Never smoker Tobacco Type: E-cigarettes / Vaping Cigarettes Per Day: 3; Second Hand Exposure: No; Hx Alcohol Use: No Hx Substance Use: Yes Prescribed Medications: Opiates Non-Prescribed Medications: Marijuana Last Used Substance: Days (ago) Substance Use Type Other:: 1 week ago Preferred Language: Kyrgyz Communication Ability: Effective Mailhouse Operator Required: No Beliefs That Will Affect Care: None marital status: Single Current Living Situation: Parent current occupational status: unemployed Feels Safe at Home: Yes during the past year weight has: decreased > 10 lbs Assistive Devices: Glasses Review of Systems A total of 10 systems reviewed and were otherwise negative Physical Exam Vital Signs: Vital Signs - 24 hr 01/25/22 14:40 01/25/22 18:18 01/25/22 19:00 Temperature 36.9 C Temperature Source Temporal Artery Sc an Pulse Rate 121 H Pulse Rate [Apical ] 108 H 121 H Pulse Rhythm Regular Pulse Rhythm [Apic al] Pulse Strength Normal Respiratory Rate 16 20 20 Respiratory Effort / Characteristics Non-Labored Sponta neous Non-Labored Sponta neous Non-Labored Sponta neous Respiratory Depth Normal Normal Normal Respiratory Patter n Regular Regular Regular Blood Pressure 121/77 Blood Pressure [Ri ght Arm] 128/77 126/81 Blood Pressure Valencia n 91 Blood Pressure Valencia n [Right Arm] 94 96 Blood Pressure Pos ition Sitting Blood Pressure Pos ition [Right Arm] Sitting Pulse Oximetry 98 97 98 Oxygen Delivery Me thod Room Air Room Air Room Air Sepsis Recent Feve r Within 48 Hours No Sepsis New/Unexpla ined Change in Men magdaleno Status No Sepsis Action Take n by Nursing No Action Required 01/25/22 21:00 01/25/22 23:11 Temperature Temperature Source Pulse Rate Pulse Rate [Apical ] 117 H 122 H Pulse Rhythm Pulse Rhythm [Apic al] Regular Pulse Strength Respiratory Rate 22 22 Respiratory Effort / Characteristics Non-Labored Sponta neous Non-Labored Sponta neous Respiratory Depth Normal Respiratory Patter n Blood Pressure Blood Pressure [Ri ght Arm] 128/84 134/85 Blood Pressure Valencia n Blood Pressure Valencia n [Right Arm] 98 101 Blood Pressure Pos ition Blood Pressure Pos ition [Right Arm] Lying Pulse Oximetry 100 97 Oxygen Delivery Me thod Room Air Room Air Sepsis Recent Feve r Within 48 Hours Sepsis New/Unexpla ined Change in Men magdaleno Status Sepsis Action Take n by Nursing Physical Exam: Physical Exam GENERAL: He is oriented to person, place, and time. He appears well-developed and well-nourished. He does not appear distressed. HENT: Exam performed. - Head: Normocephalic and atraumatic. - Right Ear: External ear normal. No mastoid tenderness. - Left Ear: External ear normal. No mastoid tenderness. - Mouth/Throat: Dry mucous membranes. EYES: Conjunctivae and EOM are normal. Pupils are equal, round, and reactive to light. Right eye exhibits no discharge. Left eye exhibits no discharge. No scleral icterus. NECK: Normal range of motion. Neck supple. No JVD present. No spinous process tenderness present. No carotid bruit present. No rigidity. No tracheal deviation and normal range of motion present. No Brudzinski's sign and no Kernig's sign noted. CV: Tachycardic rate, regular rhythm, normal heart sounds and intact distal pulses. There is no peripheral edema. Palpable radial pulses bue. PULM/CHEST: Effort normal and breath sounds normal. No respiratory distress. No stridor. He has no wheezes. He has no rales. - Chest Wall: He exhibits no tenderness. ABD: The abdomen is soft. Bowel sounds are normal. He has no distension. No mass is present. There is no tenderness. There is no rebound, no guarding, no Lima's sign and no tenderness at McBurney's point. Rovsig negative. MUSC/SKEL: Normal range of motion. There is no peripheral edema, tenderness or deformity. LYMPH: No cervical adenopathy. NEURO: He is alert and oriented to person, place, and time. He has normal strength. No cranial nerve deficit or sensory deficit. Coordination and gait normal. GCS eye subscore is 4. GCS verbal subscore is 5. GCS motor subscore is 6 . Cerebellar tests wnl. SKIN: Skin is warm and dry. He is not diaphoretic. PSYCH: He has a normal mood and affect. Behavior is normal. Judgment and thought content normal. Course Course 1703: The patient was evaluated in room B9. A complete history and physical exam was performed Cardiac monitoring: An order was placed for continuous cardiac monitoring. The monitor shows a rate of 120 with sinus tachycardia rhythm Patient was seen during a time of extreme volume and extreme acuity in the emergency department. Nursing triage protocols were initiated and labs were drawn by protocol in the triage area. Patient was found to have a leukocytosis of 16.6. Anion gap 24. Creatinine 1.5. Glucose 328. We will obtain a CT of the abdomen and give the patient 2 L of normal saline and then recheck his labs. 1999: 2 L IV fluids done infusing. CT of the abdomen negative. We will recheck labs to see if the patient's DKA has improved. 2044: Status post 2 L of IV fluid the patient's glucose did not improve significantly and his anion gap did not close. Patient be started on insulin drip 0.1 units/kg/h and admitted to the [facility] team. Dr. Elam notified. Administered Medications Sodium Chloride (Nss 1000ml) 1,000 mls @ 150 mls/hr IV .[id number] [facility] Stop: 02/24/22 21:44 Last Admin: 01/25/22 22:46 Dose: 150 mls/hr Documented By: ANASTASIA Sodium Bicarbonate 150 meq/ (Sterile Water) 1,150 mls @ 100 mls/hr IV .[id number] [facility] Stop: 02/24/22 21:44 Last Admin: 01/25/22 22:13 Dose: 100 mls/hr Documented By: ANASTASIA Discontinued Medications Diphenhydramine HCl (Diphenhydramine 50 Mg/Ml Vial) 25 mg IV NOW STA Stop: 01/25/22 18:49 Last Admin: 01/25/22 19:07 Dose: 25 mg Documented By: ANASTASIA Sodium Chloride (Nss 1000ml) 2,000 mls @ 999 mls/hr IV .Q2H1M ONE Stop: 01/25/22 19:05 Last Infusion: 01/25/22 19:51 Dose: 0 mls/hr Documented By: Admin: 01/25/22 17:15 Dose: 999 mls/hr Documented By: WALTER Insulin Human Regular 250 (units/ Sodium Chloride) 250 mls @ 7.4 mls/hr IV .Q24H YUE; Protocol Stop: 02/24/22 20:44 Last Titration: 01/25/22 21:19 Dose: 0 units/hr, 0 mls/hr Documented By: ANASTASIA Co-signed By: TANNER Admin: 01/25/22 21:18 Dose: 7.4 units/hr, 7.4 mls/hr Documented By: ANASTASIA Co-signed By: KIANA Insulin Aspart (Insulin Aspart Per Unit) 0 units SC ACHS [facility] Stop: 02/24/22 20:59 Last Admin: 01/25/22 21:19 Dose: Not Given Documented By: ANASTASIA Co-signed By: KIANA Insulin Human Regular (Novolin-R Insulin Per Unit Charge) 10 units IV NOW STA Stop: 01/25/22 22:28 Last Admin: 01/25/22 22:50 Dose: 10 units Documented By: ANASTASIA Co-signed By: NIKOLE Ioversol (Optiray 320 100ml) 95 ml IV ONCE ONE Stop: 01/25/22 18:22 Last Admin: 01/25/22 18:22 Dose: 1 ml Documented By: VINH Metoclopramide HCl (Metoclopramide Hcl Inj 5 Mg/Ml 2 Ml Vial) 5 mg IV ONE ONE Stop: 01/25/22 18:49 Last Admin: 01/25/22 19:07 Dose: 5 mg Documented By: ANASTASIA Miscellaneous (Stat Insulin Drip) 1 each N/A NOW STA Stop: 01/25/22 20:41 Last Admin: 01/25/22 21:19 Dose: 1 each Documented By: ANASTASIA Ondansetron HCl (Ondansetron Inj 2 Mg/Ml 2 Ml Vial) Confirm Administered Dose 4 mg .ROUTE .STK-MED ONE Stop: 01/25/22 16:03 Last Admin: 01/25/22 16:03 Dose: 4 mg Documented By: VINNIE Medical Decision Making Laboratory Data Result diagrams: 01/25/22 20:00 01/25/22 20:00 Lab Results 08/07/1801/25/22 01/25/22 Range/Units 16:00 16:00 19:12 WBC 16.65 H (4.8-10.8) K/ul RBC 5.27 (4.63-6.08) M/uL Hgb 15.7 (14.0-18.0) g/dl Hct 47.4 (40.1-51.0) % MCV 89.9 (80.0-100.0) fL MCH 29.8 (25.0-34.0) pg MCHC 33.1 (32.0-36.0) g/dL RDW Std Deviation 41.8 (36.4-46.3) fL RDW Coeff of Carlos 12.7 (11.5-14.5) % Plt Count 395 (130-400) K/uL MPV 9.6 (9.4-12.4) fL Immature Gran % (Auto) 1.3 % Neut % (Auto) 86.7 % Lymph % (Auto) 8.0 % [place] % (Auto) 3.6 % Eos % (Auto) 0.0 % Baso % (Auto) 0.4 % Neut # (Auto) 14.44 H (1.4-6.5) K/uL Lymph # (Auto) 1.33 (1.2-3.4) K/uL [place] # (Auto) 0.60 (0.24-0.82) K/uL Eos # (Auto) 0.00 (0-0.50) K/uL Baso # (Auto) 0.06 (0-0.2) K/uL Immature Gran # (Auto) 0.22 H (0.00-0.02) K/uL Sodium 135 L (136-145) mmol/L Potassium 3.7 (3.5-5.1) mmol/L Chloride 91 L (98-107) mmol/L Carbon Dioxide 20 L (21-32) mmol/L Anion Gap 24 H (3-11) BUN 22 (6-23) mg/dl Creatinine 1.50 H (0.6-1.4) mg/dl Est Cr Clr Drug Dosing 79.1 ml/min Est GFR ( Amer) 73.9 ml/min Est GFR (Non-Af Amer) 63.8 ml/min BUN/Creatinine Ratio 14.7 (10-20) Glucose 328 H* (70-99(Fasting)) mg/dl POC Glucose 287 H (70-99) mg/dl Calcium 10.6 H (8.5-10.1) mg/dl Total Bilirubin 0.8 (0.2-1.0) mg/dl AST 34 (13-39) U/L ALT 30 (7-52) U/L Alkaline Phosphatase 134 H (34-104) U/L Total Protein 9.9 H (6.0-8.3) gm/dl Albumin 5.8 H (3.4-5.0) gm/dl Globulin 4.1 H (2.5-4.0) gm/dl Albumin/Globulin Ratio 1.4 (0.9-2) Lipase 13 (11-82) U/L Urine Opiates Screen (Neg) Ur Methadone, Qual (Neg) Urine Barbiturates (Neg) Ur Phencyclidine (PCP) (Neg) U Amphetamin/Meth Scrn (Neg) MDMA (Ecstasy) Screen (Neg) U Benzodiazepines Scrn (Neg) Ur Cocaine Metabolite (Neg) U Marijuana (THC) Screen (Neg) SARS-CoV-2, RNA, NAAT (NEGATIVE) 01/25/22 01/25/22 01/25/22 Range/Units 20:00 20:00 21:03 WBC 13.54 H (4.8-10.8) K/ul RBC 4.35 L (4.63-6.08) M/uL Hgb 12.8 L D (14.0-18.0) g/dl Hct 38.8 L (40.1-51.0) % MCV 89.2 (80.0-100.0) fL MCH 29.4 (25.0-34.0) pg MCHC 33.0 (32.0-36.0) g/dL RDW Std Deviation 42.2 (36.4-46.3) fL RDW Coeff of Carlos 12.8 (11.5-14.5) % Plt Count 298 (130-400) K/uL MPV 9.8 (9.4-12.4) fL Immature Gran % (Auto) 1.0 % Neut % (Auto) 87.4 % Lymph % (Auto) 6.1 % [place] % (Auto) 5.3 % Eos % (Auto) 0.0 % Baso % (Auto) 0.2 % Neut # (Auto) 11.84 H (1.4-6.5) K/uL Lymph # (Auto) 0.82 L (1.2-3.4) K/uL [place] # (Auto) 0.72 (0.24-0.82) K/uL Eos # (Auto) 0.00 (0-0.50) K/uL Baso # (Auto) 0.03 (0-0.2) K/uL Immature Gran # (Auto) 0.13 H (0.00-0.02) K/uL Sodium 134 L (136-145) mmol/L Potassium 4.9 D (3.5-5.1) mmol/L Chloride 97 L (98-107) mmol/L Carbon Dioxide 16 L (21-32) mmol/L Anion Gap 21 H (3-11) BUN 21 (6-23) mg/dl Creatinine 1.26 (0.6-1.4) mg/dl Est Cr Clr Drug Dosing 94.2 ml/min Est GFR ( Amer) 91.3 ml/min Est GFR (Non-Af Amer) 78.8 ml/min BUN/Creatinine Ratio 16.7 (10-20) Glucose 376 H* (70-99(Fasting)) mg/dl POC Glucose 459 H* (70-99) mg/dl Calcium 8.7 (8.5-10.1) mg/dl Total Bilirubin (0.2-1.0) mg/dl AST (13-39) U/L ALT (7-52) U/L Alkaline Phosphatase (34-104) U/L Total Protein (6.0-8.3) gm/dl Albumin (3.4-5.0) gm/dl Globulin (2.5-4.0) gm/dl Albumin/Globulin Ratio (0.9-2) Lipase (11-82) U/L Urine Opiates Screen (Neg) Ur Methadone, Qual (Neg) Urine Barbiturates (Neg) Ur Phencyclidine (PCP) (Neg) U Amphetamin/Meth Scrn (Neg) MDMA (Ecstasy) Screen (Neg) U Benzodiazepines Scrn (Neg) Ur Cocaine Metabolite (Neg) U Marijuana (THC) Screen (Neg) SARS-CoV-2, RNA, NAAT (NEGATIVE) 01/25/22 01/25/22 01/25/22 Range/Units 21:30 21:45 22:26 WBC (4.8-10.8) K/ul RBC (4.63-6.08) M/uL Hgb (14.0-18.0) g/dl Hct (40.1-51.0) % MCV (80.0-100.0) fL MCH (25.0-34.0) pg MCHC (32.0-36.0) g/dL RDW Std Deviation (36.4-46.3) fL RDW Coeff of Carlos (11.5-14.5) % Plt Count (130-400) K/uL MPV (9.4-12.4) fL Immature Gran % (Auto) % Neut % (Auto) % Lymph % (Auto) % [place] % (Auto) % Eos % (Auto) % Baso % (Auto) % Neut # (Auto) (1.4-6.5) K/uL Lymph # (Auto) (1.2-3.4) K/uL [place] # (Auto) (0.24-0.82) K/uL Eos # (Auto) (0-0.50) K/uL Baso # (Auto) (0-0.2) K/uL Immature Gran # (Auto) (0.00-0.02) K/uL Sodium (136-145) mmol/L Potassium (3.5-5.1) mmol/L Chloride (98-107) mmol/L Carbon Dioxide (21-32) mmol/L Anion Gap (3-11) BUN (6-23) mg/dl Creatinine (0.6-1.4) mg/dl Est Cr Clr Drug Dosing ml/min Est GFR ( Amer) ml/min Est GFR (Non-Af Amer) ml/min BUN/Creatinine Ratio (10-20) Glucose (70-99(Fasting)) mg/dl POC Glucose 528 H* (70-99) mg/dl Calcium (8.5-10.1) mg/dl Total Bilirubin (0.2-1.0) mg/dl AST (13-39) U/L ALT (7-52) U/L Alkaline Phosphatase (34-104) U/L Total Protein (6.0-8.3) gm/dl Albumin (3.4-5.0) gm/dl Globulin (2.5-4.0) gm/dl Albumin/Globulin Ratio (0.9-2) Lipase (11-82) U/L Urine Opiates Screen Neg (Neg) Ur Methadone, Qual Neg (Neg) Urine Barbiturates Neg (Neg) Ur Phencyclidine (PCP) Neg (Neg) U Amphetamin/Meth Scrn Pos H (Neg) MDMA (Ecstasy) Screen Neg (Neg) U Benzodiazepines Scrn Neg (Neg) Ur Cocaine Metabolite Neg (Neg) U Marijuana (THC) Screen Pos H (Neg) SARS-CoV-2, RNA, NAAT NEGATIVE (NEGATIVE) Imaging Data Radiologist's Impression: Abdomen/Pelvis CT 01/25/22 17:[address] WITH IV CONTRAST CT DOSE: 310.39 mGy.cm HISTORY: Acute nausea with vomiting nv TECHNIQUE: Multiaxial CT images of the abdomen and pelvis were performed following the IV administration of 95 cc of Optiray, A dose lowering technique was utilized adhering to the principles of ALARA. COMPARISON STUDY: CT abdomen and pelvis 12/04/2021 FINDINGS: Study is limited without the use of enteric contrast. The lung bases. No pneumatosis or pneumoperitoneum. Unremarkable spleen, pancreas, adrenal glands and liver. Vaishali lobe of the liver. Cholelithiasis without CT evidence of acute cholecystitis. Patency of the hepatic and portal veins. No biliary ductal dilation. Symmetric enhancement of the kidneys. There is no hydronephrosis. Unremarkable urinary bladder. The prostate is upper limits of normal in size. Aorta and IVC are unremarkable. There is no lymphadenopathy. No bowel obstruction or bowel wall thickening. Mucosal hyperemia is noted within the rectum with mild wall thickening. The rectum is fluid-filled. The majority of the large bowel is decompressed. A tubular nondilated structure is noted posterior to the ileocecal valve on image 308 suggestive of a noninflamed appendix which is suboptimally visualized. Unremarkable soft tissues. There is no acute fracture. Chronic L3 compression deformity. These IMPRESSION: 1. No acute intra-abdominal or intrapelvic abnormality. 2. The study is limited without the use of enteric contrast. No bowel obstruction or pneumoperitoneum. 3. No CT evidence of acute appendicitis. 4. Fluid-filled rectum with wall thickening versus partial distention. Correlate clinically to exclude a mild proctitis. 5. Cholelithiasis. ACT 112: Negative or not required by law. The above report was generated using voice recognition software. It may contain grammatical, syntax or spelling errors. Electronically signed by: Hu Sorto M.D. 01/25/2022 6:55 PM MDM Narrative 1704: The patient was evaluated in room B9. A complete history and physical exam was performed Cardiac monitoring: An order was placed for continuous cardiac monitoring. The monitor shows a rate of 120 with sinus tachycardia rhythm Patient was seen during a time of extreme volume and extreme acuity in the emergency department. Nursing triage protocols were initiated and labs were drawn by protocol in the triage area. Patient was found to have a leukocytosis of 16.6. Anion gap 24. Creatinine 1.5. Glucose 328. We will obtain a CT of the abdomen and give the patient 2 L of normal saline and then recheck his labs. 1999: 2 L IV fluids done infusing. CT of the abdomen negative. We will recheck labs to see if the patient's DKA has improved. 2044: Status post 2 L of IV fluid the patient's glucose did not improve significantly and his anion gap did not close. Patient be started on insulin drip 0.1 units/kg/h and admitted to the [facility] team. Dr. Elam notified. Impression & Plan DKA (diabetic ketoacidoses) Critical Care Time Critical Care Time: Yes Total Critical Care Time: 65 I have personally spent greater than 65 minutes of critical care time in the direct management of this patient. This includes bedside care, interpretation of diagnostic studies, and testing, discussion with consultants, patient, and family members, and other required patient management activities. This 65 minutes is in excess of all separately billable procedures. Discharge Plan Visit Data Chief Complaint: Vomiting Stated Complaint: NAUSEA AND VOMITING ED Provider: Catarino Zhao Discharge Problem: DKA (diabetic ketoacidoses) Patient Disposition: Admitted As Inpatient Forms Stand Alone Forms: My [facility] Prescriptions Prescriptions: No Action Baqsimi 3 mg/actuation spray,non-aerosol 3 mg INTNAS DIRECTED PRN (Reason: Hypoglycemia) Qty: 2 1RF (DME) Contour Next Test Strips Strip See Rx Instructions .Route Qty: 400 3RF Rx Instructions: Test blood sugar four times daily melatonin 5 mg Tablet 5 mg PO HS insulin aspart U-100 100 unit/mL solution 0 unit continuous subcutaneous infusion CONTINOUS Rx Instructions: 60 UNITS/DAY. metoclopramide HCl [Reglan] 10 mg tablet 10 mg PO Q6H PRN (Reason: nausea and vomiting) Qty: 20 0RF Referrals Referrals: Lex Peralta MD [Primary Care Provider] - : DKA (diabetic ketoacidoses) Qualifiers: Diabetes mellitus type: other specified (including JAYJAY) Diabetes mellitus complication detail: without coma Qualified Code(s): E13.10 - Other specified diabetes mellitus with ketoacidosis without coma
[2022-01-25] MEDS ORDERED: OPTIRAY 320 100ml IV ONE (18:21)
[2022-01-25] MEDS ORDERED: diphenhydrAMINE 50 MG/ML VIAL IV STA (18:48)
[2022-01-25] MEDS ORDERED: METOCLOPRAMIDE HCL INJ 5 MG/ML 2 ML VIAL IV ONE (18:48)
--- NOTE | 2022-01-25 18:55 | CT Scan Report ---
ABDOMEN AND PELVIS CT WITH IV CONTRAST CT DOSE: 310.39 mGy.cm HISTORY: Acute nausea with vomiting nv TECHNIQUE: Multiaxial CT images of the abdomen and pelvis were performed following the IV administrat ion of 95 cc of Optiray, A dose lowering technique was utilized adhering to the principles of ALARA. COMPARISON STUDY: CT abdomen and pelvis 12/04/2021 FINDINGS: Study is limited without the use of enteric contrast. The lung bases. No pneumatosis or pneumoperitoneum. Unremarkable spleen, pancreas, adrenal glands and liver. Vaishali lobe of the liver. Cholelithiasis without CT evidence of acute cholecystitis. Patency of the hepatic and portal veins. No biliary ductal dilation. Symmetric enhancement of the kidneys. Th ere is no hydronephrosis. Unremarkable urinary bladder. The prostate is upper limits of normal in siz e. Aorta and IVC are unremarkable. There is no lymphadenopathy. No bowel obstruction or bowel wall thickening. Mucosal hyperemia is noted within the rectum with mild wall thickening. The rectum is fluid-filled. The majority of the large bowel is decompressed. A tubu lar nondilated structure is noted posterior to the ileocecal valve on image 308 suggestive of a nonin flamed appendix which is suboptimally visualized. Unremarkable soft tissues. There is no acute fractu re. Chronic L3 compression deformity. These IMPRESSION: 1. No acute intra-abdominal or intrapelvic abnormality. 2. The study is limited without the use of enteric contrast. No bowel obstruction or pneumoperitoneum . 3. No CT evidence of acute appendicitis. 4. Fluid-filled rectum with wall thickening versus partial distention. Correlate clinically to exclud e a mild proctitis. 5. Cholelithiasis. ACT 112: Negative or not required by law. The above report was generated using voice recognition software. It may contain grammatical, syntax o r spelling errors. Electronically signed by: Hu Sorto M.D. 01/25/2022 6:55 PM
[2022-01-25 20:14] LABS: Basophils # (auto) 0.03 K/uL (0-0.2); Basophils % (auto) 0.2 %; Hematocrit (blood only) 38.8 % (40.1-51.0); Hemoglobin 12.8 g/dl (14.0-18.0); Immature Granulocytes # (auto) 0.13 K/uL (0.00-0.02); Lymphocytes # (auto) 0.82 K/uL (1.2-3.4); Lymphocytes % (auto) 6.1 %; Mean Corpuscular Hemoglobin 29.4 pg (25.0-34.0); Mean Corpuscular Volume 89.2 fL (80.0-100.0); Mean Platelet Volume 9.8 fL (9.4-12.4); Monocytes # (auto) 0.72 K/uL (0.24-0.82); Monocytes % (auto) 5.3 %; Neutrophils # (auto) 11.84 K/uL (1.4-6.5); Neutrophils % (auto) 87.4 %; Platelet Count 298 K/uL (130-400); RDW Coefficient of Variation 12.8 % (11.5-14.5); RDW Standard Deviation 42.2 fL (36.4-46.3); Red Blood Count 4.35 M/uL (4.63-6.08); White Blood Count 13.54 K/ul (4.8-10.8)
[2022-01-25 20:36] LABS: BUN Creatinine Ratio 16.7 (10-20); Calcium 8.7 mg/dl (8.5-10.1); Creatinine Clr Calc Pharmacy 94.2 ml/min; Est GFR (African American) 91.3 ml/min; Est GFR (Non-African American) 78.8 ml/min; Potassium 4.9 mmol/L (3.5-5.1)
[2022-01-25] MEDS ORDERED: STAT INSULIN DRIP STA (20:40)
[2022-01-25] MEDS ORDERED: CARBOHYDRATES FOR HYPOGLYCEMIA PO PRN ×2 (20:40→21:43)
[2022-01-25] MEDS ORDERED: GLUCAGON FOR INJ 1 MG VIAL SQ PRN ×2 (20:40→21:43)
[2022-01-25] MEDS ORDERED: DEXTROSE 50% 50 ML SYRINGE IV PRN ×2 (20:40→21:43)
[2022-01-25] MEDS ORDERED: GLUCOSE 40% GEL 15 GM TUBE PO PRN ×2 (20:40→21:43)
[2022-01-25] MEDS ORDERED: GLUCOSE 10 TAB/TUBE PO PRN ×2 (20:40→21:43)
[2022-01-25] MEDS ORDERED: INSULIN REGULAR 250 UNITS in SODIUM CHLORIDE 0.9% 247.5 ML IV SCH (20:45)
[2022-01-25] MEDS ORDERED: INSULIN ASPART PER UNIT SC SCH (21:00)
[2022-01-25] MEDS ORDERED: SODIUM BICARBONATE 8.4% 150 MEQ in WATER, STERILE 1,000 ML IV SCH (21:45)
[2022-01-25] MEDS ORDERED: NovoLIN-R INSULIN PER UNIT CHARGE IV STA (22:27)
[2022-01-25] MEDS ORDERED: SODIUM CHLORIDE 0.9% 1000ML 1,000 ML IV SCH (22:30)
[2022-01-25 22:37] LABS: Amphetamines+Metham, Urine Pos (Neg); Barbiturates, Urine Neg (Neg); Benzodiazepine, Urine Neg (Neg); Cocaine, Urine Neg (Neg); MDMA (Ecstacy), Urine Neg (Neg); Methadone, Urine Neg (Neg); Opiate, Urine Neg (Neg); Phencyclidine, Urine Neg (Neg)
[2022-01-25] MEDS: SODIUM CHLORIDE 0.9% 1000ML 1,000 ML IV SCH (22:46)
[2022-01-26] MEDS ORDERED: ONDANSETRON INJ 2 MG/ML 2 ML VIAL IV PRN (01:52)
[2022-01-26] MEDS ORDERED: PROMETHAZINE HCL 25 MG in SODIUM CHLORIDE 0.9% 50 ML IV PRN (01:52)
--- NOTE | 2022-01-26 02:29 | History & Physical Report ---
Date of Service January 26, 2022 The patient was seen and examined on January 25, 2022 Assessment & Plan (1) DKA (diabetic ketoacidoses): Plan: Mild DKA- Anion gap 21 NPO From the ED received the following: Normal saline 2 L bolus, Benadryl 25 mg IV, Reglan 5 mg IV Give 10 units regular insulin IV now Placed on NSS at 150 mils per hour Placed on bicarbonate drip, 150 mEq, at 100 mils per hour Serial BMP and magnesium levels Symptoms likely precipitated by drug use: UDS positive for methamphetamine amphetamines, and marijuana (2) Diabetes type 1, uncontrolled: Plan: Patient does not have his insulin pump with him (3) Cannabinoid hyperemesis syndrome: Plan: Advised to cease marijuana use Zofran 4 mg IV every 6 hours as needed Phenergan 25 mg IV every 6 hours as needed Famotidine 20 mg IV every 12 hours (4) Esophagitis: Plan: Famotidine 20 mg IV every 12 hours (5) Gastroparesis: Plan: Gastroparesis likely being aggravated cannabinol hyperemesis syndrome Admission and Anticipated Discharge Date Admission Date: January 25, 2022 History of Present Illness Chief Complaint: The patient presents to the emergency department with complaint of intermittent nausea, vomiting and abdominal pain. Primary Care Provider: Lex Peralta MD The patient is a 26-year-old male with past medical history including uncontrolled diabetes mellitus type 1, infected dental caries, esophagitis, gastroparesis, cannabinoid hyperemesis syndrome, DKA, anemia, and history of opioid abuse. The patient presented to the emergency department and was admitted with similar symptoms on 12/04/2021, with discharge on 12/05/2021. Urine drug screen at that time was positive for marijuana, and when added today, is positive for marijuana and methamphetamines//amphetamines. Laboratories and work-up are consistent with mild DKA. Allergies Allergy/AdvReac Type Severity Reaction Status Date / Time Cephalosporins Allergy Intermediate Hives Verified 01/25/22 19:04 Sulfa (Sulfonamide Allergy Intermediate Hives Verified 01/25/22 19:04 Antibiotics) azithromycin [From Zithromax] AdvReac Intermediate Hives Verified 01/25/22 19:04 Home Medications Medication Instructions Recorded Confirmed Type melatonin 5 mg tablet 5 mg PO HS 05/15/20 01/25/22 History blood sugar diagnostic (Contour #[id number] ea 08/06/21 08/06/21 Rx Next Test Strips) insulin aspart U-100 100 unit/mL 0 unit continuous subcutaneous 10/04/21 01/25/22 History subcutaneous solution infusion CONTINOUS glucagon 3 mg/actuation nasal 3 mg intranasal DIRECTED PRN 11/02/21 01/25/22 Rx spray (Baqsimi) Hypoglycemia #2 ea metoclopramide HCl 10 mg tablet 10 mg PO Q6H PRN nausea and 12/05/21 01/25/22 Rx (Reglan) vomiting #20 tabs Past Med/Surg History Medical History Anemia Cyclic vomiting syndrome Diabetes type 1, uncontrolled Gastroparesis Hematemesis Hepatitis History of opioid abuse Hypokalemia Hypomagnesemia Intractable cyclical vomiting with nausea Intractable vomiting with nausea Marijuana use Methadone dependence Pneumomediastinum Soft tissue abscess Type I diabetes mellitus Surgical History No pertinent past surgical history Family History Father Valvular heart disease Mother Hypothyroidism Other Cancer Diabetes Heart disease Hypertension Social History Smoking Status: Current every day smoker Tobacco Type: E-cigarettes / Vaping Cigarettes Per Day: 3; Second Hand Exposure: No; Hx Alcohol Use: Yes Alcohol type: beer Hx Substance Use: Yes Prescribed Medications: Opiates Non-Prescribed Medications: Marijuana Last Used Substance: Days (ago) Last Used Substance Other:: tuesday claimed by patient Substance Use Type Other:: 1 week ago Preferred Language: Lebanese Communication Ability: Effective Geospatial Technician Required: No Beliefs That Will Affect Care: None marital status: Single Current Living Situation: Parent current occupational status: unemployed Feels Safe at Home: Yes during the past year weight has: decreased > 10 lbs Assistive Devices: None Review of Systems Review of Systems: The patient denies chest pain, palpitations, shortness of breath, dyspnea on exertion, cough, lower extremity swelling, sore throat, fevers, chills, sweats, blood in urine or stool, dysuria, urinary frequency or urgency, memory loss, loss of consciousness, rash, abnormal bruising or bleeding, imbalance, focal or generalized weakness, numbness or tingling in arms or legs, generalized arthralgias or myalgias, back or neck pain, or night sweats. The review of systems is otherwise negative other than for that already noted above, and at least 10 systems have been reviewed. Physical Exam Physical Exam: The patient is awake, alert and oriented 3, well developed and well nourished, normocephalic and atraumatic, lying in bed and in no acute distress. HEENT--PERRL, EOMI, mucous membranes and oropharynx dry. Neck--supple. No JVD. No bruits. Thyroid normal, trachea midline, no adenopathy. Heart--normal S1 and S2. No murmurs, rubs or gallops. Lungs--clear bilaterally, no respiratory distress, no accessory muscle use. Abdomen--normal bowel sounds and soft. Nontender. Nondistended Extremities--no cyanosis or clubbing. No edema. Dermatologic--normal skin turgor, normal color, no abnormal lymph nodes, no rash. Neurologic--cranial nerves II through XII grossly intact. Rheumatologic--normal range of motion. Psychiatric--normal affect. Results & Data Results & Data ([facility]) Vital Signs (Past 12 Hours) Vital Signs Temp Pulse Pulse Resp BP BP Pulse Ox 01/26/22 01:52 36.9 C 141 H 16 132/75 100 01/26/22 01:52 01/26/22 01:04 118 H 20 135/72 98 01/25/22 23:11 122 H 22 134/85 97 01/25/22 21:00 117 H 22 128/84 100 01/25/22 19:00 121 H 20 126/81 98 01/25/22 18:18 108 H 20 128/77 97 01/25/22 14:40 36.9 C 121 H 16 121/77 98 Pulse Ox O2 Del Method O2 Del Method 01/26/22 01:52 Room Air 01/26/22 01:52 100 Room Air 01/26/22 01:04 01/25/22 23:11 Room Air 01/25/22 21:00 Room Air 01/25/22 19:00 Room Air 01/25/22 18:18 Room Air 01/25/22 14:40 Room Air Laboratory Results Laboratory Results WBC 13.54 K/ul (4.8-10.8) H 01/25/22 20:00 RBC 4.35 M/uL (4.63-6.08) L 01/25/22 20:00 Hgb 12.8 g/dl (14.0-18.0) L D 01/25/22 20:00 Hct 38.8 % (40.1-51.0) L 01/25/22 20:00 MCV 89.2 fL (80.0-100.0) 01/25/22 20:00 MCH 29.4 pg (25.0-34.0) 01/25/22 20:00 MCHC 33.0 g/dL (32.0-36.0) 01/25/22 20:00 RDW Std Deviation 42.2 fL (36.4-46.3) 01/25/22 20: RDW Coeff of Carlos 12.8 % (11.5-14.5) 01/25/22 20:00 Plt Count 298 K/uL (130-400) 01/25/22 20:00 MPV 9.8 fL (9.4-12.4) 01/25/22 20:00 Immature Gran % (Auto) 1.0 % 01/25/22 20:00 Neut % (Auto) 87.4 % 01/25/22 20:00 Lymph % (Auto) 6.1 % 01/25/22 20:00 [place] % (Auto) 5.3 % 01/25/22 20:00 Eos % (Auto) 0.0 % 01/25/22 20:00 Baso % (Auto) 0.2 % 01/25/22 20:00 Neut # (Auto) 11.84 K/uL (1.4-6.5) H 01/25/22 20:00 Lymph # (Auto) 0.82 K/uL (1.2-3.4) L 01/25/22 20:00 [place] # (Auto) 0.72 K/uL (0.24-0.82) 01/25/22 20:00 Eos # (Auto) 0.00 K/uL (0-0.50) 01/25/22 20:00 Baso # (Auto) 0.03 K/uL (0-0.2) 01/25/22 20:00 Immature Gran # (Auto) 0.13 K/uL (0.00-0.02) H 01/25/22 20:00 Sodium 134 mmol/L (136-145) L 01/25/22 20:00 Potassium 4.9 mmol/L (3.5-5.1) D 01/25/22 20:00 Chloride 97 mmol/L (98-107) L 01/25/22 20:00 Carbon Dioxide 16 mmol/L (21-32) L 01/25/22 20:00 Anion Gap 21 (3-11) H 01/25/22 20:00 BUN 21 mg/dl (6-23) 01/25/22 20:00 Creatinine 1.26 mg/dl (0.6-1.4) 01/25/22 20:00 Est Cr Clr Drug Dosing 94.2 ml/min 01/25/22 20:00 Est GFR ( Amer) 91.3 ml/min 01/25/22 20:00 Est GFR (Non-Af Amer) 78.8 ml/min 01/25/22 20:00 BUN/Creatinine Ratio 16.7 (10-20) 01/25/22 20:00 Glucose 376 mg/dl (70-99(Fasting)) H* 01/25/22 20:00 POC Glucose 374 mg/dl (70-99) H* 01/26/22 00:14 Calcium 8.7 mg/dl (8.5-10.1) 01/25/22 20:00 Total Bilirubin 0.8 mg/dl (0.2-1.0) 01/25/22 16:00 AST 34 U/L (13-39) 01/25/22 16:00 ALT 30 U/L (7-52) 01/25/22 16:00 Alkaline Phosphatase 134 U/L (34-104) H 01/25/22 16:00 Total Protein 9.9 gm/dl (6.0-8.3) H 01/25/22 16:00 Albumin 5.8 gm/dl (3.4-5.0) H 01/25/22 16:00 Globulin 4.1 gm/dl (2.5-4.0) H 01/25/22 16:00 Albumin/Globulin Ratio 1.4 (0.9-2) 01/25/22 16:00 Lipase 13 U/L (11-82) 01/25/22 16:00 Urine Opiates Screen Neg (Neg) 01/25/22 21:30 Ur Methadone, Qual Neg (Neg) 01/25/22 21:30 Urine Barbiturates Neg (Neg) 01/25/22 21:30 Ur Phencyclidine (PCP) Neg (Neg) 01/25/22 21:30 U Amphetamin/Meth Scrn Pos (Neg) H 01/25/22 21:30 MDMA (Ecstasy) Screen Neg (Neg) 01/25/22 21:30 U Benzodiazepines Scrn Neg (Neg) 01/25/22 21:30 Ur Cocaine Metabolite Neg (Neg) 01/25/22 21:30 U Marijuana (THC) Screen Pos (Neg) H 01/25/22 21:30 SARS-CoV-2, RNA, NAAT NEGATIVE (NEGATIVE) 01/25/22 21:45 Impressions Abdomen/Pelvis CT 01/25/22 17:[address] WITH IV CONTRAST CT DOSE: 310.39 mGy.cm HISTORY: Acute nausea with vomiting nv TECHNIQUE: Multiaxial CT images of the abdomen and pelvis were performed followi ng the IV administration of 95 cc of Optiray, A dose lowering technique was utilized adhering to the principles of ALARA. COMPARISON STUDY: CT abdomen and pelvis 12/04/2021 FINDINGS: Study is limited without the use of enteric contrast. The lung bases. No pneumatosis or pneumoperitoneum. Unremarkable spleen, pancreas, adrenal glands and liver. Vaishali lobe of the liver. Cholelithiasis without CT evidence of acute cholecystitis. Patency of the hepatic and portal veins. No biliary ductal dilation. Symmetric enhancement of the kidneys. There is no hydronephrosis. Unremarkable urinary bladder. The prostate is upper limits of normal in size. Aorta and IVC are unremarkable. There is no lymphadenopathy. No bowel obstruction or bowel wall thickening. Mucosal hyperemia is noted within the rectum with mild wall thickening. The rectum is fluid-filled. The majority of the large bowel is decompressed. A tubular nondilated structure is noted posterior to the ileocecal valve on image 308 suggestive of a noninflamed appendix which is suboptimally visualized. Unremarkable soft tissues. There is no acute fracture. Chronic L3 compression deformity. These IMPRESSION: 1. No acute intra-abdominal or intrapelvic abnormality. 2. The study is limited without the use of enteric contrast. No bowel obstruction or pneumoperitoneum. 3. No CT evidence of acute appendicitis. 4. Fluid-filled rectum with wall thickening versus partial distention. Correlate clinically to exclude a mild proctitis. 5. Cholelithiasis. ACT 112: Negative or not required by law. The above report was generated using voice recognition software. It may contain grammatical, syntax or spelling errors. Electronically signed by: Hu Sorto M.D. 01/25/2022 6:55 PM Code Status & VTE Plan Code Status Full code VTE Prophylaxis Plan VTE Prophylaxis will be ordered: Yes PG Care Time/CCT Total # of Minutes Spent Total Time Spent with Patient: Total time spent is greater than 50% in coordination of care (as documented) at patient's floor/unit and/or counseling patient: Coding Level of Care Code 83488 Initial Inpt Care Lvl 3 Diagnoses DKA (diabetic ketoacidoses) E13.10 Diabetes mellitus complication detail: without coma Diabetes mellitus type: other specified (including JAYJAY) Diabetes type 1, uncontrolled E10.65 Glycemic state: with hyperglycemia Cannabinoid hyperemesis syndrome R11.2; F12.90 Esophagitis K20.90 Gastroparesis K31.84 (1) DKA (diabetic ketoacidoses) Diabetes mellitus complication detail: without coma Diabetes mellitus type: other specified (including JAYJAY) Qualified Code(s): E13.10 - Other specified diabetes mellitus with ketoacidosis without coma (2) Diabetes type 1, uncontrolled Glycemic state: with hyperglycemia Qualified Code(s): E10.65 - Type 1 diabetes mellitus with hyperglycemia
[2022-01-26] MEDS ORDERED: INSULIN ASPART PER UNIT SC ONE ×2 (02:45→12:45)
[2022-01-26] MEDS: FAMOTIDINE 20 MG in SYRINGE 3 ML IV SCH ×2 (03:06→17:24)
[2022-01-26] MEDS ORDERED: INSULIN HUMAN REGULAR PER UNIT 10 UNITS in SYRINGE 9.9 ML IV STA (03:45)
[2022-01-26] MEDS ORDERED: STAT IV Infusion **Titration per Protocol STA (05:40)
[2022-01-26] MEDS ORDERED: INSULIN REGULAR 250 UNITS in SODIUM CHLORIDE 0.9% 247.5 ML IV SCH (05:45)
--- NOTE | 2022-01-26 06:02 | Communication Note ---
Date of Service: January 26, 2022 Night resident note BSG persistently elevated since admission (525 @ 02:17). Patient also tachycardic. Ordered stat BMP, mag, phos, and VBG, started insulin gtt, and transferred patient to PCU. Ordered BMP, VBG, mag, and phos q2h (x2, starting at 08:00). NSS still running at 150mL/hr and sodium bicarb @ 100mL/hr. Ordered additional NSS bolus 1L (x1). Resident Activity Tracking Resident Involvement: Resident Care Provided and Shiftman Coverage Note Care Provided: Adult Hospital Medicine
[2022-01-26 06:06] LABS: HCO3 VBG 14 mmol/L; Oxygen Saturation VBG 84.9 %; PCO2 VBG 25 mmHg (38-50); PO2 VBG 49 mmHg; pH VBG 7.35 (7.36-7.41)
[2022-01-26 06:25] LABS: Albumin Globulin Ratio 1.5 (0.9-2); Albumin Level 4.6 gm/dl (3.4-5.0); BUN Creatinine Ratio 15.9 (10-20); Bilirubin,Total 0.4 mg/dl (0.2-1.0); Creatinine Clr Calc Pharmacy 81.8 ml/min; Est GFR (Non-African American) 66.5 ml/min; Globulin 3.1 gm/dl (2.5-4.0); Phosphorus 2.9 mg/dl (2.5-4.9); Potassium 4.4 mmol/L (3.5-5.1); Total Protein 7.7 gm/dl (6.0-8.3)
[2022-01-26 06:33] LABS: Basophils # (auto) 0.08 K/uL (0-0.2); Basophils % (auto) 0.3 %; Hematocrit (blood only) 39.1 % (40.1-51.0); Hemoglobin 12.6 g/dl (14.0-18.0); Immature Granulocytes % (auto) 2.1 %; Lymphocytes # (auto) 1.77 K/uL (1.2-3.4); Lymphocytes % (auto) 7.6 %; Mean Corpuscular Hemoglobin 29.6 pg (25.0-34.0); Mean Corpuscular Hgb Conc 32.2 g/dL (32.0-36.0); Mean Platelet Volume 9.8 fL (9.4-12.4); Monocytes # (auto) 2.99 K/uL (0.24-0.82); Monocytes % (auto) 12.8 %; Neutrophils # (auto) 18.08 K/uL (1.4-6.5); Neutrophils % (auto) 77.2 %; Platelet Count 302 K/uL (130-400); RDW Standard Deviation 43.4 fL (36.4-46.3); Red Blood Count 4.25 M/uL (4.63-6.08); White Blood Count 23.42 K/ul (4.8-10.8)
[2022-01-26] MEDS ORDERED: SODIUM CHLORIDE 0.9% 1000ML 1,000 ML IV ONE (06:42)
[2022-01-26] MEDS ORDERED: INSULIN ASPART PER UNIT SC SCH (07:30)
[2022-01-26 07:43] LABS: Estimated Average Glucose 194 mg/dl; Hemoglobin A1C 8.4 % (4.5-5.6)
[2022-01-26] MEDS ORDERED: PHARMACY GLYCEMIC MGMT CONSULT PRN (08:03)
[2022-01-26 08:41] LABS: Base Excess VBG -2.9 mEq/L; HCO3 VBG 21 mmol/L; PCO2 VBG 33 mmHg (38-50); PO2 VBG 54 mmHg; pH VBG 7.41 (7.36-7.41)
[2022-01-26] MEDS: D5W AND 1/2NSS + 20MEQ KCL 20 MEQ/1,000 ML BAG IV SCH ×4 (09:04→20:44)
[2022-01-26] MEDS: SODIUM CHLORIDE 0.9% 1000ML 1,000 ML IV SCH (09:13)
[2022-01-26 09:16] LABS: BUN Creatinine Ratio 16.8 (10-20); Calcium 8.9 mg/dl (8.5-10.1); Creatinine Clr Calc Pharmacy 86.6 ml/min; Est GFR (African American) 82.5 ml/min; Est GFR (Non-African American) 71.2 ml/min; Phosphorus 1.4 mg/dl (2.5-4.9)
[2022-01-26] MEDS ORDERED: POTASSIUM PHOS 3 MMOL/1 ML INFUSION IV STA (09:31)
[2022-01-26] MEDS ORDERED: POTASSIUM PHOSPHATE 21 MMOL in SODIUM CHLORIDE 0.9% 500 ML IV ONE (10:00)
[2022-01-26 10:03] LABS: Base Excess VBG -2.4 mEq/L; HCO3 VBG 22 mmol/L; Oxygen Saturation VBG 98.5 %; PCO2 VBG 34 mmHg (38-50); PO2 VBG 81 mmHg; pH VBG 7.41 (7.36-7.41)
[2022-01-26 10:31] LABS: BUN Creatinine Ratio 16.9 (10-20); Calcium 8.8 mg/dl (8.5-10.1); Creatinine Clr Calc Pharmacy 95.7 ml/min; Est GFR (African American) 93.1 ml/min; Est GFR (Non-African American) 80.3 ml/min; Potassium 4.1 mmol/L (3.5-5.1)
--- NOTE | 2022-01-26 11:22 | Hospitalist Progress Note ---
Date of Service January 26, 2022 Assessment & Plan (1) DKA (diabetic ketoacidoses): Plan: -Admission labs concerning for DKA. Symptoms possibly precipitated by drug use: UDS positive for methamphetamine amphetamines, and marijuana -Fluid repletion ongoing with normalization of anion gap to 11 noted on latest BMP, BSGs improving to 100s -Zofran PRN. Diet initiated, will stop fluids once pt tolerating PO intake well -Currently on IV insulin infusion, will transition to SQ now that anion gap has closed -Trend BMP and phosphorus in AM, electrolytes currently stable- phosphorus repleted in AM due to 1.4 -Aim for discharge in AM, pt will need extensive diabetic counseling -Of note, pt does have leukocytosis to 23.4 which is higher than expected in DKA. He does not appear to have any findings or symptoms to suggest infection at this time, will repeat CBC in AM (2) Diabetes type 1, uncontrolled: Plan: Patient does not have his insulin pump with him -Would benefit from continuous glucose monitor -A1C 8.4 -Glycemic management as above- will transition back to SQ insulin when able (3) Cannabinoid hyperemesis syndrome: Plan: Advised to cease marijuana use Zofran 4 mg IV every 6 hours as needed Phenergan 25 mg IV every 6 hours as needed Famotidine 20 mg IV every 12 hours (4) Esophagitis: Plan: Famotidine 20 mg IV every 12 hours (5) Gastroparesis: Plan: Gastroparesis likely being aggravated by cannabinol hyperemesis syndrome Admission and Anticipated Discharge Date Admission Date: January 25, 2022 Supervising Physician Co-Signing Physician Notes I personally examined the patient and verified all gonzales points of history and exam, discussed case, and agree with decision making with Dr Esteban. Feeling better but still not great. Still some nausea. No chest pain no shortness of breath no cough no fevers chills or sweats. Vitals noted, in general he is awake and alert still somewhat fatigued and nauseated but otherwise no distress. HEENT normocephalic atraumatic mucous membranes moist. Breathing unlabored no accessory muscle use good effort. Skin shows no rashes no pallor or icterus. Neuro without focal deficits. DKAimprovingcontinue fluids and insulin. Leukocytosislikely demargination/stress response from DKAno signs or symptoms consistent with pneumonia UTI cellulitis or C. difficile. Blood cultures pending, but no growth to date. No clear need for empiric antibiotics at this time. Serial exams. Subjective No acute events overnight. Pt was lethargic and tired during evaluation, minimally interactive. Did state he feels nauseous but denied any explicit pain. Later during rounds, pt stated he continued to feel nauseous but did feel slightly better as the day went on. Denies other acute complaints. Review of Systems Review of Systems: Per subjective Physical Exam Physical Exam: General: laying in bed, sleepy, lethargic HEENT--PERRL, mucous membranes and oropharynx dry. Neck--supple. No JVD. No bruits. Thyroid normal, trachea midline, no adenopathy. Heart--normal S1 and S2. No murmurs, rubs or gallops. Lungs--clear bilaterally, no respiratory distress, no accessory muscle use. Abdomen--normal bowel sounds and soft. Nontender. Nondistended Extremities--no cyanosis or clubbing. No edema. Neurologic- +lethargic, no focal motor or sensory deficits Results & Data Results & Data ([facility]) Vital Signs (Past 12 Hours) Vital Signs Temp Pulse Pulse Resp BP Pulse Ox Pulse Ox 01/26/22 09:29 110 H 01/26/22 06:55 36.5 C 116 H 16 114/77 98 01/26/22 02:23 139 H 01/26/22 01:52 36.9 C 141 H 16 132/75 100 01/26/22 01:52 100 01/26/22 01:04 118 H 20 135/72 98 O2 Del Method O2 Del Method 01/26/22 09:29 01/26/22 06:55 Room Air 01/26/22 02:23 01/26/22 01:52 Room Air 01/26/22 01:52 Room Air 01/26/22 01:04 Resident Activity Tracking Resident Involvement: Resident Care Provided Care Provided: Adult Hospital Medicine (1) DKA (diabetic ketoacidoses) Diabetes mellitus complication detail: without coma Diabetes mellitus type: other specified (including JAYJAY) Qualified Code(s): E13.10 - Other specified diabetes mellitus with ketoacidosis without coma (2) Diabetes type 1, uncontrolled Glycemic state: with hyperglycemia Qualified Code(s): E10.65 - Type 1 diabetes mellitus with hyperglycemia
[2022-01-26 12:13] LABS: BUN Creatinine Ratio 16.3 (10-20); Calcium 8.8 mg/dl (8.5-10.1); Creatinine Clr Calc Pharmacy 96.5 ml/min; Est GFR (Non-African American) 81.1 ml/min; Potassium 4.2 mmol/L (3.5-5.1)
--- NOTE | 2022-01-26 12:50 | Pharmacy Report ---
Pharmacy Glycemic Short Note 2 - Date of Service January 26, 2022 - Glycemic Short BSG Results (Last 24 hours): 01/25/22 01/25/22 01/25/22 16:00 19:12 20:00 Glucose 328 H* 376 H* POC Glucose 287 H 01/25/22 01/25/22 01/26/22 21:03 22:26 00:14 Glucose POC Glucose 459 H* 528 H* 374 H* 01/26/22 01/26/22 01/26/22 02:17 05:24 05:46 Glucose 421 H* POC Glucose 525 H* 451 H* 01/26/22 01/26/22 01/26/22 06:19 07:36 08:00 Glucose POC Glucose 307 H* 260 H 229 H 01/26/22 01/26/22 01/26/22 08:23 08:58 09:16 Glucose 195 H POC Glucose 142 H 138 H 01/26/22 01/26/22 01/26/22 09:32 09:47 10:30 Glucose 166 H POC Glucose 159 H 159 H 01/26/22 01/26/22 01/26/22 11:31 11:42 12:32 Glucose 157 H POC Glucose 148 H 158 H OUTPATIENT ANTIDIABETIC REGIMEN: * insulin pump (unclear settings) ASSESSMENT: * Mr Tijerina is a 26 y/o M admitted with DKA. Insulin infusion started at 545 this morning. Since then, blood sugars have been trending downwards appropriately and BMP has normalized. * Will transition patient since laboratory values normalized. * Lantus 21 units SQ x 1 with subsequent doses based upon response. During previous hospitalizations, patient tolerated 22 units but it appeared to be too aggressive. * Start Novolog as utilized during previous hospitalizations. PLAN FOR INPATIENT GLYCEMIC CONTROL: * Basal insulin * Lantus 21 units SQ x 1 then adjust based upon response * Bolus insulin * NovoLog per scale ACHS or Q6hrs while NPO * Goal Range: Low 110 mg/dL - High 140 mg/dL * Correction Factor: 30 mg/dL/unit * Nutritional / Prandial insulin per carb ratio of 1 unit per 10 grams CHO consumed
[2022-01-26] MEDS ORDERED: LANTUS PER UNIT CHARGE SQ ONE (13:00)
[2022-01-26] MEDS: INSULIN ASPART PER UNIT SC SCH ×2 (17:23→20:38)
--- NOTE | 2022-01-26 18:42 | Billing Data ---
Date of Service January 26, 2022 Coding Level of Care Code 63522 Subseq Hosp Care Lvl 3
--- NOTE | 2022-01-26 18:43 | Billing Data ---
Date of Service January 26, 2022 Coding Level of Care Code 82007 Subseq Hosp Care Lvl 3
[2022-01-27] MEDS: D5W AND 1/2NSS + 20MEQ KCL 20 MEQ/1,000 ML BAG IV SCH ×3 (00:54→09:39)
[2022-01-27] MEDS: FAMOTIDINE 20 MG in SYRINGE 3 ML IV SCH (06:20)
[2022-01-27] MEDS ORDERED: LANTUS PER UNIT CHARGE SQ ONE (07:15)
[2022-01-27] MEDS: INSULIN ASPART PER UNIT SC SCH ×2 (07:48→12:18)
[2022-01-27 07:50] LABS: Basophils # (auto) 0.03 K/uL (0-0.2); Basophils % (auto) 0.4 %; Eosinophils # (auto) 0.06 K/uL (0-0.50); Eosinophils % (auto) 0.9 %; Hematocrit (blood only) 30.9 % (40.1-51.0); Hemoglobin 10.1 g/dl (14.0-18.0); Immature Granulocytes # (auto) 0.03 K/uL (0.00-0.02); Immature Granulocytes % (auto) 0.4 %; Lymphocytes # (auto) 2.34 K/uL (1.2-3.4); Lymphocytes % (auto) 33.6 %; Mean Corpuscular Hemoglobin 29.1 pg (25.0-34.0); Mean Corpuscular Hgb Conc 32.7 g/dL (32.0-36.0); Mean Platelet Volume 9.8 fL (9.4-12.4); Monocytes # (auto) 0.54 K/uL (0.24-0.82); Monocytes % (auto) 7.7 %; Neutrophils # (auto) 3.97 K/uL (1.4-6.5); Platelet Count 172 K/uL (130-400); RDW Standard Deviation 42.5 fL (36.4-46.3); Red Blood Count 3.47 M/uL (4.63-6.08); White Blood Count 6.97 K/ul (4.8-10.8)
[2022-01-27 08:41] LABS: Albumin Globulin Ratio 1.6 (0.9-2); Albumin Level 3.3 gm/dl (3.4-5.0); BUN Creatinine Ratio 7.1 (10-20); Bilirubin,Total 0.7 mg/dl (0.2-1.0); Calcium 7.8 mg/dl (8.5-10.1); Creatinine Clr Calc Pharmacy 121.1 ml/min; Est GFR (African American) 123.7 ml/min; Est GFR (Non-African American) 106.7 ml/min; Globulin 2.1 gm/dl (2.5-4.0); Magnesium 1.8 mg/dl (1.7-2.4); Potassium 4.7 mmol/L (3.5-5.1); Total Protein 5.4 gm/dl (6.0-8.3)
--- NOTE | 2022-01-27 11:56 | Discharge Summary ---
Date of Service January 27, 2022 Admission HPI Per Admitting Provider The patient is a 26-year-old male with past medical history including uncontrolled diabetes mellitus type 1, infected dental caries, esophagitis, gastroparesis, cannabinoid hyperemesis syndrome, DKA, anemia, and history of opioid abuse. The patient presented to the emergency department and was admitted with similar symptoms on 12/04/2021, with discharge on 12/05/2021. Urine drug screen at that time was positive for marijuana, and when added today, is positive for marijuana and methamphetamines//amphetamines. Laboratories and work-up are consistent with mild DKA. Admission Exam Per Admitting Provider General: laying in bed, sleepy, lethargic HEENT--PERRL, mucous membranes and oropharynx dry. Neck--supple. No JVD. No bruits. Thyroid normal, trachea midline, no adenopathy. Heart--normal S1 and S2. No murmurs, rubs or gallops. Lungs--clear bilaterally, no respiratory distress, no accessory muscle use. Abdomen--normal bowel sounds and soft. Nontender. Nondistended Extremities--no cyanosis or clubbing. No edema. Neurologic- +lethargic, no focal motor or sensory deficits Principal Diagnosis Diabetic ketoacidosis Discharge Exam General: laying in bed, appeared comfortable HEENT--PERRL, mucous membranes and oropharynx dry. Neck--supple. No JVD. No bruits. Thyroid normal, trachea midline, no adenopathy. Heart--normal S1 and S2. No murmurs, rubs or gallops. Lungs--clear bilaterally, no respiratory distress, no accessory muscle use. Abdomen--normal bowel sounds and soft. Nontender. Nondistended Extremities--no cyanosis or clubbing. No edema. Neurologic- no focal motor or sensory deficits Discharge Data Allergies Allergy/AdvReac Type Severity Reaction Status Date / Time Cephalosporins Allergy Intermediate Hives Verified 01/25/22 19:04 Sulfa (Sulfonamide Allergy Intermediate Hives Verified 01/25/22 19:04 Antibiotics) azithromycin [From Zithromax] AdvReac Intermediate Hives Verified 01/25/22 19:04 Consultations 01/25/22 20:43 ED Decision to Admit Stat Ordered Studies 01/25/22 17:56 CT abd pelvis IV con only Stat Hospital Course (1) DKA (diabetic ketoacidoses): -DKA episode possibly precipitated by drug use: UDS positive for methamphetamine amphetamines, and marijuana -Transitioned to SQ insulin on 01/26 after AG closure -Tolerating diet, discontinued IVF- BSGs 300s-400s -Leukocytosis 23.4 resolved to 7, no concern for infection -Extensive diabetic counseling provided before discharge- no adjustment made to insulin regimen, advised regular monitoring and careful carb coverage (2) Diabetes type 1, uncontrolled: Patient does not have his insulin pump with him -Would benefit from continuous glucose monitor- pt is attempting to obtain this with [employer] -A1C 8.4 -Has f/u scheduled with back roller in February, advised to schedule PCP f/u in interim (3) Cannabinoid hyperemesis syndrome: Advised to cease marijuana use Antiemetic PRNs given during stay (4) Esophagitis: -Famotidine given during stay (5) Gastroparesis: Gastroparesis likely being aggravated by cannabinol hyperemesis syndrome Total Time Total Time Spent Total Time Spent (In Minutes): 30 Discharge Plan Discharge Items Patient Disposition: Home - Self-Care Reason For Visit: NAUSEA / VOMITING, MILD DKA Discharge Diagnosis: Diabetic ketoacidosis Activity: Resume your previous activity Non-emergency contact: Primary Care Provider and Specialist Call non-emergency contact if: you have any medication questions and your symptoms worsen Follow-up/Referrals: Pro,Lex Harris MD [Primary Care Provider] - Diet: Carb Count or DM1 Addtl Attending Provider Instructions: You were admitted to the hospital for diabetic ketoacidosis, a complication from uncontrolled diabetes in which your blood sugar is too high. You were treated with fluids and insulin to get your sugars back under control. -Fortunately this resolved fairly quickly. -What happens with DKA, is when sugars get fairly high, they start to act like a "diuretic" pulling water out of your body. As this happens, your body starts to get dehydrated. As a reaction to the stress of being dehydrated, your adrenal glands start to secrete cortisol which raises your sugar higher. This starts in sie-fj-[id number] spiral of high sugar leading to dehydration leading to higher sugar leading to worse dehydration. Uncontrolled type 1 diabetes -While DKA is what caused you to be admitted to the hospital this time, the overall poor control of your diabetes is what is of the greatest long-term concern. -Remember what we talked abouthigh sugars clog arteries. The higher your sugars run, and the longer they run high, the more you knock off blood vessels you cannot get back. -The most famous complications of high sugars clogging arteries are things like blindness, kidney failure, and neuropathythis is where high sugars clog the arteries to the back of your eyes, your kidneys, and the nerves that fuel your feet. -Unfortunately, the most common complications of uncontrolled diabetes are heart attacks and strokes -You haven't been diabetic for that long but you are definitely running into artery clogging ranges, we are built with so much "failsafe" vasculature that it is very unlikely you have "crossed the point of no return" with blocked arteries yet -To put "ranges" in perspectiveas it relates to any individual blood sugar reading, any sugar reading above about 160 would be suggestive of clogging arterieshigher obviously being worse. Likewise, as it relates to an A1c (A1c being a marker of how sugar covered your red blood cells aresince red cells live for about 90 days, an A1c is a good marker of sugar control over 3 months)an A1c above 7.0 is indicative of clogging arteries, again with higher numbers being worse. -Your current A1c is 8.4, which is higher than your typical range in the 7s. -To that end, it is very important to start to take better care of yourself. Like we discussed, the problem with type 1 diabetes is that while you want to be able to go about your life as an otherwise normal/healthy 26-year-old, is a diabetes does not careand still goes on whether you take care of it or not -Like we discussed, a very quick way to start to get better control of diabetes is to get better control of the sugars when you eat -When we eat, the carbohydrates we consume basically reach a peak of absorption into our bloodstream around an hour or so after we are done eating. Short acting insulin reaches a peak of activity about an hour and a half after we inject it. An easy way to really make a "dent" in uncontrolled sugars is to start to get the postprandial (sugars about 2 hours after we are done eating) glucose readings between 100- 150. To do thistake insulin when you eat, check your sugar 2 hours later, and learn from the results. If the sugar reading is too high, then you did not take enough insulin for the amount of carbohydrates you ate. The next time, then you would want to take more insulin with what you eat, or eat less carbohydrates. I have seen people take an A1c from about 12 down to 6.5 in 3 months mostly by being more vigilant on controlling their mealtime sugar readings. A discharge summary will be sent to your primary care physician to ensure continuity of care. Please bring this discharge summary with you to your next office appointment so that your provider can review it at that time. Follow-up appointments: Make a follow-up appointment with your PCP within the next week. It is very important that you follow up with them shortly after discharge from the hospital. Medications: Your medication list has been reviewed and reconciled upon discharge to ensure accuracy and continuity of care. An updated list of all your medications is included with your hospital discharge paperwork. Please review this list closely, and make note of any changes. Take your medications as instructed; do not skip a dose of your medicines. Make sure all of your doctors know every medicine you are taking (including twtt-wln-zaruqrq medicines, vitamins, and supplements). Call your primary care provider before taking any new medicines (including gtad-vcf-tdcwrff medicines, vitamins, and supplements), because some of these may interact with your current medications, or may make your symptoms worse. Tell your primary care provider if you cannot afford your medications. CONTACT YOUR PRIMARY CARE PROVIDER if you experience any of the following: Abdominal pain Nausea Vomiting Shortness of breath Lightheadedness Fatigue Difficulty following your treatment plan, or difficulty taking medications CALL 911 OR GO TO THE EMERGENCY DEPARTMENT if you experience any of the following: Sudden, severe abdominal pain or nausea/vomiting Severe chest pain, or chest pain that radiates (moves) to your jaw or arm Sudden, severe shortness of breath or difficulty breathing Thank you for allowing us to participate in your care. Pending Studies at Discharge: No Stand-Alone Forms: [facility] Medications and DC Order Prescriptions: Continued Baqsimi 3 mg/actuation spray,non-aerosol 3 mg INTNAS DIRECTED PRN (Reason: Hypoglycemia) Qty: 2 1RF (DME) Contour Next Test Strips Strip See Rx Instructions .Route Qty: 400 3RF Rx Instructions: Test blood sugar four times daily melatonin 5 mg Tablet 5 mg PO HS insulin aspart U-100 100 unit/mL solution 0 unit continuous subcutaneous infusion CONTINOUS Rx Instructions: 60 UNITS/DAY. metoclopramide HCl [Reglan] 10 mg tablet 10 mg PO Q6H PRN (Reason: nausea and vomiting) Qty: 20 0RF Discharge Orders: Discharge Order (Routine); Ordered 01/27/22 Ordered By: Darlyn Esteban Admission Data Admit Date/Time: 01/25/22 21:43 Attending Provider: Jose Pat Admit Provider: Matthew Chambers Primary Care Provider: Lex Peralta Other Providers: Matthew Chambers Other Interventions: Discharge Summary Assessment (RN) Last Done: 01/27/22 15:30 Supervising Physician Co-Signing Physician Notes I personally examined the patient and verified all gonzales points of history and exam, discussed case, and agree with decision making with Dr Esteban. Feels better overall, and definitely feels up to going home. Discussed home insulin use. Vitals noted, in general he is awake and alert pleasant and in no distress. HEENT normocephalic atraumatic mucous membranes moist. Breathing unlabored no accessory muscle use good effort. Skin shows no rashes no pallor or icterus. Neuro without focal deficits. DKAimprovedstable for home. Uncontrolled type 1 diabetestried to educate on importance of insulin use and following glucoses, as well as staying on top of both the basal and bolus of his basal bolus insulin regimen. Outpatient follow- up. Leukocytosislikely demargination/stress response from DKAno signs or symptoms consistent with pneumonia UTI cellulitis or C. difficile. Blood cultures technically still pending, but no growth to date thus far. Further, white count improved to 7 today with no specific intervention Safe/stable for home Resident Activity Tracking Resident Involvement: Resident Care Provided Care Provided: Adult Hospital Medicine
--- NOTE | 2022-01-27 12:29 | Pharmacy Report ---
Pharmacy Glycemic Short Note 2 - Date of Service January 27, 2022 - Glycemic Short BSG Results (Last 24 hours): 01/26/22 01/26/22 01/26/22 12:32 13:37 14:30 Glucose POC Glucose 158 H 165 H 166 H 01/26/22 01/26/22 01/26/22 15:28 16:28 20:15 Glucose POC Glucose 166 H 157 H 326 H* 01/26/22 01/26/22 01/26/22 20:16 22:11 23:57 Glucose POC Glucose 355 H* 239 H 133 H 01/27/22 01/27/22 01/27/22 02:43 04:42 04:43 Glucose POC Glucose 244 H 311 H* 326 H* 01/27/22 01/27/22 01/27/22 06:14 06:14 07:05 Glucose 400 H* POC Glucose 361 H* 388 H* 01/27/22 01/27/22 01/27/22 07:33 07:34 10:06 Glucose POC Glucose 389 H* 408 H* 230 H 01/27/22 11:43 Glucose POC Glucose 183 H OUTPATIENT ANTIDIABETIC REGIMEN: * insulin pump (unclear settings) ASSESSMENT: 01/27/22 * Blood sugars labial overnight, high at 408mg/dl this AM, tighten CF and CR and increase basal at this time * Repeat blood sugar 2 hours later = 230mg/dl - checked to ensure patient improving, now down to 183mg/dl prior to lunch * AM labs acceptable 01/26/22 * Mr Tijerina is a 26 y/o M admitted with DKA. Insulin infusion started at 545 this morning. Since then, blood sugars have been trending downwards appropriately and BMP has normalized. * Will transition patient since laboratory values normalized. * Lantus 21 units SQ x 1 with subsequent doses based upon response. During previous hospitalizations, patient tolerated 22 units but it appeared to be too aggressive. * Start Novolog as utilized during previous hospitalizations. PLAN FOR INPATIENT GLYCEMIC CONTROL: * Basal insulin * Lantus 24 units SQ QAM * Bolus insulin * NovoLog per scale ACHS or Q6hrs while NPO * Goal Range: Low 110 mg/dL - High 140 mg/dL * Correction Factor: 25 mg/dL/unit * Nutritional / Prandial insulin per carb ratio of 1 unit per 9 grams CHO consumed
--- NOTE | 2022-01-27 18:08 | Billing Data ---
Date of Service January 27, 2022 Coding Level of Care Code D/C DAY MANAGEMENT <30 MINS
[2022-01-28 09:56] LABS: Amphetamine Urine, Confirm NEGATIVE ng/mL (<250); Marijuana Quant, GCMS Urine 127 ng/mL (<5); Methamphetamine, Ur Confirm 2780 ng/mL (<250)
== END 2022-01-27 16:21 | disposition home or self-care (01) | DRG 639 ==
LOC: ED 14:29 → 2N 21:43 → SUATTDRO 21:43 → 2N 01-26 01:33 → 2S 01-26 06:41

== ENCOUNTER 2022-07-22 17:27 | Observation (INO) ==
[2022-07-22] MEDS ORDERED: ONDANSETRON INJ 2 MG/ML 2 ML VIAL IV STA (17:49)
[2022-07-22 18:03] LABS: Basophils # (auto) 0.03 K/uL (0-0.2); Basophils % (auto) 0.3 %; Eosinophils # (auto) 0.03 K/uL (0-0.50); Eosinophils % (auto) 0.3 %; Hematocrit (blood only) 44.9 % (42.0-52.0); Hemoglobin 15.2 g/dl (14.0-18.0); Immature Granulocytes # (auto) 0.04 K/uL (0.01-0.20); Immature Granulocytes % (auto) 0.5 %; Lymphocytes # (auto) 1.03 K/uL (1.2-3.4); Lymphocytes % (auto) 11.6 %; Mean Corpuscular Hemoglobin 30.6 pg (25.0-34.0); Mean Corpuscular Hgb Conc 33.9 g/dL (32.0-36.0); Mean Corpuscular Volume 90.3 fL (80.0-100.0); Mean Platelet Volume 10.1 fL (9.4-12.4); Monocytes # (auto) 0.54 K/uL (0.11-0.59); Monocytes % (auto) 6.1 %; Neutrophils # (auto) 7.19 K/uL (1.40-6.50); Neutrophils % (auto) 81.2 %; Platelet Count 269 K/uL (130-400); RDW Coefficient of Variation 12.5 % (11.5-14.5); RDW Standard Deviation 40.9 fL (36.4-46.3); Red Blood Count 4.97 M/uL (4.70-6.10); White Blood Count 8.86 K/ul (4.8-10.8)
[2022-07-22 18:49] LABS: Alanine Aminotransferase 294 U/L (7-52); Albumin Globulin Ratio 1.5 (0.9-2); Albumin Level 4.8 gm/dl (3.4-5.0); Alkaline Phosphatase 159 U/L (34-104); Anion Gap 10 (3-11); Bilirubin,Total 1.1 mg/dl (0.2-1.0); Blood Urea Nitrogen 12 mg/dl (6-23); Calcium 9.8 mg/dl (8.5-10.1); Carbon Dioxide 28 mmol/L (21-32); Chloride 101 mmol/L (98-107); Creatinine Clr Calc Pharmacy 147.3 ml/min; Est GFR (African American) 138.7 ml/min; Est GFR (Non-African American) 119.7 ml/min; Globulin 3.2 gm/dl (2.5-4.0); Glucose 239 mg/dl (70-99(Fasting)); Lipase 28 U/L (11-82); Sodium 139 mmol/L (136-145)
[2022-07-22] MEDS ORDERED: MoRPHine SULFATE 4 MG/ML 1 ML CARP\\VIAL IV STA ×2 (19:57→22:40)
[2022-07-22] MEDS ORDERED: SODIUM CHLORIDE 0.9% 1000ML 2,000 ML IV ONE (19:58)
--- NOTE | 2022-07-22 19:59 | Emergency Department Note ---
Impression & Plan Transaminitis DC ED Provider Note HPI: The patient is a 27-year-old male with history of insulin-dependent diabetes, cannabinoid hyperemesis syndrome, gastroparesis, presents emergency department chief complaint of nausea and vomiting since earlier this morning at around 10 AM. Patient states he has also had some right flank pain. Patient states that he normally wears an insulin pump, states that he took it off yesterday to change the site, he was using sliding scale insulin today. On arrival here to the ED the patient is hemodynamically stable, he is in mild distress secondary to nausea and vomiting on my initial assessment. ROS: - Per HPI *Outpatient medications and allergy history reviewed. *Pertinent external medical records reviewed. PE: General: Alert HEENT: Normocephalic, trachea midline Eyes: Extraocular eye movement is intact, no scleral erythema Pulmonary: Clear to auscultation bilaterally, no wheezing Cardio: Regular rate and rhythm GI: Abdomen is soft, nontender, moderate right flank tenderness to palpation, Lima sign is negative : No suprapubic tenderness MSK: No evidence of trauma or malformation of the extremities, no edema Skin: No evidence of rash Neuro: Alert, no focal deficits Psychiatric: Cooperative laboratory monitor: - An order was placed for continuous cardiac monitoring - Patient was noted to be in sinus rhythm with a rate of 90 US RUQ: Comparison is made to a prior ultrasound dated 01/11/19 as well as a prior CT from earlier the same day. The gallbladder is collapsed with mild wall thicken ing. There are multiple adherent calculi with some questionable areas of ringdown artifact suggesting adenomyomatosis. Findings are overall equivocal for acute cholecystitis. No biliary dilatation or other evidence to suggest choledocholithiasis. Radiologist: Quirino Tracey MD Interventions provided in ED: -IV morphine, IV Zofran, IV fluid bolus, IV Reglan, IV Benadryl Medical Decision Making: Patient presented to the emergency department with some right flank pain, as well as nausea and vomiting. States he was using sliding scale insulin today and not on his insulin pump as he normally is. Lab work was obtained that shows evidence of hyperglycemia but no evidence of DKA. No anion gap elevation, patient's lab work does show transaminitis with AST of 1127, ALT 294, alk phos 159, bilirubin slightly elevated at 1.1. CT imaging of the abdomen pelvis was obtained that shows evidence of distended GB, otherwise no acute findings, ultrasound imaging of the gallbladder was therefore obtained that is equivocal for cholecystitis, no biliary ductal dilatation to suggest choledocholithiasis. On my reassessment patient states he is feeling Somewhat improved but remains symptomatic. I feel given his transaminitis and right flank pain that his symptoms are likely biliary in nature. General surgery was therefore consulted, case was discussed with the on-call surgery PA, Sukhwinder Price. Patient will be admitted to the medicine service for general surgery consultation and further management. I discussed this with the patient and his mother at the bedside and they are in agreement to the above plan. Case was discussed with the on-call hospitalist, Dr. Navarro, patient was admitted in stable condition for further care. Disposition discussion held by myself with: Patient and mother Diagnosis: 1. Transaminitis, acute 2. Nausea and vomiting, acute 3. Right flank pain, acute 4. Hyperglycemia without DKA 5. Elevated bilirubin Disposition: ADMIT Tacos Perez, DO Emergency Medicine Past Med/Surg History Medical History Anemia Cyclic vomiting syndrome Diabetes type 1, uncontrolled Gastroparesis Hematemesis Hepatitis History of opioid abuse Hypokalemia Hypomagnesemia Intractable cyclical vomiting with nausea Intractable vomiting with nausea Marijuana use Methadone dependence Pneumomediastinum Soft tissue abscess Type I diabetes mellitus Surgical History No pertinent past surgical history Family History Father Valvular heart disease Mother Hypothyroidism Other Cancer Diabetes Heart disease Hypertension Social History Smoking Status: Never smoker Tobacco Type: E-cigarettes / Vaping Cigarettes Per Day: 3; Second Hand Exposure: No; Hx Alcohol Use: Yes Alcohol type: beer Hx Substance Use: Yes Prescribed Medications: Opiates Non-Prescribed Medications: Marijuana Last Used Substance: Days (ago) Last Used Substance Othe r:: tuesday claimed by patient Substance Use Type Other:: 1 week ago Preferred Language: Pashto Communication Ability: Effective Animal Trainer Supervisor Required: No Beliefs That Will Affect Care: None marital status: Single Current Living Situation: Parent current occupational status: unemployed How many Children do You have: 0 Feels Safe at Home: Yes during the past year weight has: decreased > 10 lbs Assistive Devices: None Allergies Allergies Allergy/AdvReac Type Severity Reaction Status Date / Time Cephalosporins Allergy Intermediate Hives Verified 07/22/22 21:15 Sulfa (Sulfonamide Allergy Intermediate Hives Verified 07/22/22 21:15 Antibiotics) azithromycin [From Zithromax] AdvReac Intermediate Hives Verified 07/22/22 21:15 Home Meds Home Medications Medication Instructions Recorded Confirmed melatonin 5 mg tablet 5 mg PO HS 05/15/20 07/22/22 insulin aspart U-100 100 unit/mL 0 unit continuous subcutaneous 10/04/21 07/22/22 subcutaneous solution infusion CONTINOUS Previous Rx's Medication Instructions Recorded blood sugar diagnostic (Contour #400 ea 08/06/21 Next Test Strips) glucagon 3 mg/actuation nasal 3 mg intranasal DIRECTED PRN 11/02/21 spray (Baqsimi) Hypoglycemia #2 ea Results & Data (ED) Vital Signs Vital Signs - 24 hr 07/22/22 17:33 07/22/22 21:12 07/22/22 22:59 Temperature 36.7 C Temperature Source Temporal Artery Scan Pulse Rate 84 Pulse Rate [Apical] 88 120 H Pulse Rhythm [Apical] Regular Regular Pulse Strength [Apical] Normal Normal Respiratory Rate 20 20 22 Respiratory Effort / Characteristics Non-Labored Non-Labored Spontaneous Respiratory Depth Normal Normal Respiratory Pattern Regular Regular Blood Pressure 145/84 H Blood Pressure [Left Arm] 139/88 141/93 H Blood Pressure Mean 104 Blood Pressure Mean [Left Arm] 105 109 Blood Pressure Position Sitting Blood Pressure Position [Left Arm] Pulse Oximetry 100 97 97 Oxygen Delivery Method Room Air Room Air Room Air Sepsis Recent Fever Within 48 Hours No Sepsis New/Unexplained Change in Mental Status No Sepsis Action Taken by Nursing No Action Required 07/22/22 23:10 07/23/22 01:33 Temperature Temperature Source Pulse Rate Pulse Rate [Apical] 109 H 102 H Pulse Rhythm [Apical] Pulse Strength [Apical] Respiratory Rate 18 18 Respiratory Effort / Characteristics Non-Labored Spontaneous Respiratory Depth Normal Respiratory Pattern Regular Blood Pressure Blood Pressure [Left Arm] 113/54 L 127/68 Blood Pressure Mean Blood Pressure Mean [Left Arm] 73 87 Blood Pressure Position Blood Pressure Position [Left Arm] Lying Semi-fowlers Pulse Oximetry 95 98 Oxygen Delivery Method Room Air Room Air Sepsis Recent Fever Within 48 Hours Sepsis New/Unexplained Change in Mental Status Sepsis Action Taken by Nursing Laboratory Data 07/22/22 17:48 07/22/22 17:48 Lab Results 07/22/22 07/22/22 07/22/22 Range/Units 17:48 17:48 19:47 WBC 8.86 (4.8-10.8) K/ul RBC 4.97 (4.70-6.10) M/uL Hgb 15.2 (14.0-18.0) g/dl Hct 44.9 (42.0-52.0) % MCV 90.3 (80.0-100.0) fL MCH 30.6 (25.0-34.0) pg MCHC 33.9 (32.0-36.0) g/dL RDW Std Deviation 40.9 (36.4-46.3) fL RDW Coeff of Carlos 12.5 (11.5-14.5) % Plt Count 269 (130-400) K/uL MPV 10.1 (9.4-12.4) fL Immature Gran % (Auto) 0.5 % Neut % (Auto) 81.2 % Lymph % (Auto) 11.6 % [place] % (Auto) 6.1 % Eos % (Auto) 0.3 % Baso % (Auto) 0.3 % Neut # (Auto) 7.19 H (1.40-6.50) K/uL Lymph # (Auto) 1.03 L (1.2-3.4) K/uL [place] # (Auto) 0.54 (0.11-0.59) K/uL Eos # (Auto) 0.03 (0-0.50) K/uL Baso # (Auto) 0.03 (0-0.2) K/uL Immature Gran # (Auto) 0.04 (0.01-0.20) K/uL Sodium 139 (136-145) mmol/L Potassium TNP TNP Chloride 101 (98-107) mmol/L Carbon Dioxide 28 (21-32) mmol/L Anion Gap 10 (3-11) BUN 12 (6-23) mg/dl Creatinine 0.86 (0.6-1.4) mg/dl Est Cr Clr Drug Dosing 147.3 ml/min Est GFR ( Amer) 138.7 ml/min Est GFR (Non-Af Amer) 119.7 ml/min BUN/Creatinine Ratio 14.0 (10-20) Glucose 239 H (70-99(Fasting)) mg/dl POC Glucose (70-99) mg/dl Calcium 9.8 (8.5-10.1) mg/dl Total Bilirubin 1.1 H (0.2-1.0) mg/dl AST TNP TNP ALT 294 H (7-52) U/L Alkaline Phosphatase 159 H (34-104) U/L Total Protein 8.0 (6.0-8.3) gm/dl Albumin 4.8 (3.4-5.0) gm/dl Globulin 3.2 (2.5-4.0) gm/dl Albumin/Globulin Ratio 1.5 (0.9-2) Lipase 28 (11-82) U/L 07/22/22 07/22/22 Range/Units 21:16 22:54 WBC (4.8-10.8) K/ul RBC (4.70-6.10) M/uL Hgb (14.0-18.0) g/dl Hct (42.0-52.0) % MCV (80.0-100.0) fL MCH (25.0-34.0) pg MCHC (32.0-36.0) g/dL RDW Std Deviation (36.4-46.3) fL RDW Coeff of Carlos (11.5-14.5) % Plt Count (130-400) K/uL MPV (9.4-12.4) fL Immature Gran % (Auto) % Neut % (Auto) % Lymph % (Auto) % [place] % (Auto) % Eos % (Auto) % Baso % (Auto) % Neut # (Auto) (1.40-6.50) K/uL Lymph # (Auto) (1.2-3.4) K/uL [place] # (Auto) (0.11-0.59) K/uL Eos # (Auto) (0-0.50) K/uL Baso # (Auto) (0-0.2) K/uL Immature Gran # (Auto) (0.01-0.20) K/uL Sodium (136-145) mmol/L Potassium 3.6 Chloride (98-107) mmol/L Carbon Dioxide (21-32) mmol/L Anion Gap (3-11) BUN (6-23) mg/dl Creatinine (0.6-1.4) mg/dl Est Cr Clr Drug Dosing ml/min Est GFR ( Amer) ml/min Est GFR (Non-Af Amer) ml/min BUN/Creatinine Ratio (10-20) Glucose (70-99(Fasting)) mg/dl POC Glucose 278 H (70-99) mg/dl Calcium (8.5-10.1) mg/dl Total Bilirubin (0.2-1.0) mg/dl AST 1127 H ALT (7-52) U/L Alkaline Phosphatase (34-104) U/L Total Protein (6.0-8.3) gm/dl Albumin (3.4-5.0) gm/dl Globulin (2.5-4.0) gm/dl Albumin/Globulin Ratio (0.9-2) Lipase (11-82) U/L Administered Medications Discontinued Medications Diphenhydramine HCl (Diphenhydramine 50 Mg/Ml Vial) 25 mg IV NOW STA Stop: 07/22/22 20:17 Last Admin: 07/22/22 20:19 Dose: 25 mg Documented By: JENN Sodium Chloride (Nss 1000ml) 2,000 mls @ 999 mls/hr IV .Q2H1M ONE Stop: 07/22/22 21:58 Last Infusion: 07/22/22 22:06 Dose: 0 mls/hr Documented By: Admin: 07/22/22 20:03 Dose: 999 mls/hr Documented By: JENN Ioversol (Optiray 350 100ml) 85 ml IV ONCE ONE Stop: 07/22/22 20:43 Last Admin: 07/22/22 20:42 Dose: 85 ml Documented By: LEANN Metoclopramide HCl (Metoclopramide Hcl Inj 5 Mg/Ml 2 Ml Vial) 10 mg IV NOW STA Stop: 07/22/22 20:17 Last Admin: 07/22/22 20:18 Dose: 10 mg Documented By: JENN Morphine Sulfate (Morphine Sulfate 4 Mg/Ml 1 Ml Carp\Vial) 4 mg IV NOW STA Stop: 07/22/22 19:58 Last Admin: 07/22/22 20:05 Dose: 4 mg Documented By: RON Morphine Sulfate (Morphine Sulfate 4 Mg/Ml 1 Ml Carp\Vial) 4 mg IV NOW STA Stop: 07/22/22 22:41 Last Admin: 07/22/22 22:44 Dose: 4 mg Documented By: [facility] Ondansetron HCl (Ondansetron Inj 2 Mg/Ml 2 Ml Vial) 4 mg IV NOW STA Stop: 07/22/22 17:50 Last Admin: 07/22/22 17:52 Dose: 4 mg Documented By: [facility] Imaging Data Radiologist's Impression: Abdomen/Pelvis CT 07/22/22 19:[address] WITH IV CONTRAST CT DOSE: 314.33 mGy.cm HISTORY: R flank pain, N/V TECHNIQUE: Multiaxial CT images of the abdomen and pelvis were performed following the use of intravenous contrast. A dose lowering technique was utilized adhering to the principles of ALARA. COMPARISON STUDY: Abdomen and pelvis CT 01/25/2022. FINDINGS: The lung bases are clear. 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 There is an old [id number] anterior wedge-shaped compr ession deformity at L3, unchanged. No acute fractures identified. The gallbladder is mildly distended. No definite gallbladder wall thickening. The liver, pancreas, spleen, adrenal glands, and right kidney are unremarkable. There is a 6 mm hypodense lesion within the lower pole of the left kidney. This is technically too small to characterize but favors a cyst. No hydronephrosis. The main portal vein is patent. Normal caliber abdominal aorta. No retroperitoneal lymphadenopathy. No pelvic free fluid or pelvic lymphadenopathy. Normal bladder. A few punctate calcifications in the deep pelvis remain stable and likely represent phleboliths. No bowel wall thickening or obstruction. The appendix is not identified with certainty. IMPRESSION: 1. No bowel wall thickening or obstruction. 2. No hydronephrosis. 3. The appendix is not identified. 4. The gallbladder is mildly distended. No gallbladder wall thickening. 5. Additional findings as described above. ACT 112: Negative or not required by law. Electronically signed by: Thiago Francis M.D. 07/22/2022 8:57 PM Discharge Plan Visit Data Chief Complaint: Vomiting Stated Complaint: VOMITTING,NAUSEA,SEVERE BACK PAIN ED Provider: Tacos Perez Discharge Problem: Transaminitis Patient Disposition: Home - Self-Care Forms Stand Alone Forms: [facility], Virtual Emergency Department, Important Visit Information Prescriptions Prescriptions: No Action Baqsimi 3 mg/actuation spray,non-aerosol 3 mg INTNAS DIRECTED PRN (Reason: Hypoglycemia) Qty: 2 1RF (DME) Contour Next Test Strips Strip See Rx Instructions .Route Qty: 400 3RF Rx Instructions: Test blood sugar four times daily melatonin 5 mg Tablet 5 mg PO HS insulin aspart U-100 100 unit/mL solution 0 unit continuous subcutaneous infusion CONTINOUS Rx Instructions: 60 UNITS/DAY. Referrals Referrals: PCP,NO [Primary Care Provider] -
[2022-07-22] MEDS ORDERED: diphenhydrAMINE 50 MG/ML VIAL IV STA (20:16)
[2022-07-22] MEDS ORDERED: METOCLOPRAMIDE HCL INJ 5 MG/ML 2 ML VIAL IV STA (20:16)
[2022-07-22] MEDS ORDERED: OPTIRAY 350 100ml IV ONE (20:42)
--- NOTE | 2022-07-22 21:00 | CT Scan Report ---
ABDOMEN AND PELVIS CT WITH IV CONTRAST CT DOSE: 314.33 mGy.cm HISTORY: R flank pain, N/V TECHNIQUE: Multiaxial CT images of the abdomen and pelvis were performed following the use of intrave nous contrast. A dose lowering technique was utilized adhering to the principles of ALARA. COMPARISON STUDY: Abdomen and pelvis CT 01/25/2022. FINDINGS: The lung bases are clear. 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 T here is an old [id number]-zornmhug anterior wedge-shaped compression deformity at L3, unchanged. No acut e fractures identified. The gallbladder is mildly distended. No definite gallbladder wall thickening. The liver, pancreas, spleen, adrenal glands, and right kidney are unremarkable. There is a 6 mm hypo dense lesion within the lower pole of the left kidney. This is technically too small to characterize but favors a cyst. No hydronephrosis. The main portal vein is patent. Normal caliber abdominal aorta. No retroperitoneal lymphadenopathy. No pelvic free fluid or pelvic lymphadenopathy. Normal bladder. A few punctate calcifications in the deep pelvis remain stable and likely represent phleboliths. No b owel wall thickening or obstruction. The appendix is not identified with certainty. IMPRESSION: 1. No bowel wall thickening or obstruction. 2. No hydronephrosis. 3. The appendix is not identified. 4. The gallbladder is mildly distended. No gallbladder wall thickening. 5. Additional findings as described above. ACT 112: Negative or not required by law. Electronically signed by: Thiago Francis M.D. 07/22/2022 8:57 PM
[2022-07-22 21:50] LABS: Potassium 3.6 mmol/L (3.5-5.1)
--- NOTE | 2022-07-23 02:01 | Surgery Consultation ---
Date of Consultation July 23, 2022 Assessment & Plan (1) Cholelithiasis: I discussed with the treating emergency room physician and he is having the patient admitted on the hospitalist service. Certainly the patient's cholelithiasis may be contributing to his symptomatology. We recommend proceeding as follows: Provide analgesics provide antiemetics Provide IV fluid for hydration Implement n.p.o. status for the present time Follow serial labs As patient's ultrasound is equivocal for acute cholecystitis may be beneficial to initiate antibiotics It does not appear the patient has evidence of choledocholithiasis on ultrasound findings. It is possible that his elevated LFTs may be that he has passed some gravel or small gallstones with his current presentation. Nonetheless due to the patient's elevated LFTs and numerous other GI issues I feel it may be beneficial to get a GI consultation for further input. It is possible patient may benefit from a cholecystectomy however further recommendations from general surgery will be pending repeat lab values along with GI recommendations. As above. Patient is feeling somewhat improved however his LFTs are worsening. No biliary ductal dilatation and no evidence of acute cholecystitis. There is no urgent indication for cholecystectomy. Suspect this is primarily a liver etiology such as a viral hepatitis. Will await gastroenterology recommendations. May need additional testing/MRCP/ERCP. Will be deferred to gastroenterology. We will continue to follow along for now. [facility] covering for the weekend (2) Transaminitis: History of Present Illness Reason for Consultation: Abdominal pain with cholelithiasis History of Present Illness This is a 27-year-old male who presented to the emergency department secondary to abdominal pain along with nausea and vomiting. Patient notes that he has had this problem and has been ongoing for approximately 6 months where he develops right-sided flank pain along with right upper quadrant abdominal pain with uncontrolled nausea and vomiting. Patient notes that he is seen gastroenterology specialist in [place], [place]. Patient notes that he has numerous gastrointestinal/digestive issues. Patient did have an EGD in October 2018 where patient was noted to have gastritis. Patient also has gastroparesis and has been taking domperidone. 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 In addition the patient has been treated for cyclic vomiting syndrome in the past. Patient reports he was told by his outpatient physicians that he should report to the emergency department for antiemetics and hydration measures should his symptoms occur. I asked the patient to further describe his symptoms and he says that he will get the above-noted symptoms randomly unrelated to meals. He says they will often occur late at night. Patient notes that his symptoms began most recently yesterday and he therefore presented to the emergency department. With his current symptomatology he has had nausea and vomiting. He did not report any hematemesis. He does report abdominal pain as described above with pain in the right flank along with pain in the right upper quadrant. He denies any fevers, shakes, or chills. He notes that he has never had any abdominal surgeries in the past. Since arrival to the emergency department the patient has had labs and imaging which independent reviewed. A CT scan of the abdomen pelvis showed no evidence of bowel obstruction. There is no evidence of appendicitis. The gallbladder and the study was noted to be mildly distended with no gallbladder wall thickening. Patient did have a gallbladder ultrasound that showed that the g allbladder was collapsed with mild wall thickening. There are multiple adherent calculi with possible adenomyomatosis of the gallbladder. There is no biliary ductal dilatation. The interpreting radiologist felt that this ultrasound was equivocal for acute cholecystitis.Labs include a CBC her white blood cell count was noted to be normal. Hemoglobin and hematocrit were both noted to be normal. His platelet count was normal. Chemistry profile showed sodium and potassium were normal. BUN and creatinine were both normal. Patient was noted to have a total bilirubin of 1.1. He had elevation of his transaminases with an AST of 1127 and an ALT of 294. His alkaline phosphatase was elevated at 159. Lipase was nonelevated. (Review of previous labs showed only mild elevation of alkaline phosphatase but no significant elevation of bilirubin or transaminases were noted on prior labs). The patient has had multiple prior CT scans of his abdomen. These were reviewed. CT scans from 01/25/2022, 12/04/2021, 06/05/2021, and 12/11/2020 did not demonstrate any significant abnormalities of patient's gallbladder. The patient also had a previous abdominal ultrasound on 01/11/2019. This study showed patient had cholelithiasis but there is no gallbladder wall thickening, gallbladder distention, or pericholecystic fluid suggestive of acute cholecystitis. At the time of my interview the patient was resting comfortably in bed and he was in no distress Allergies Allergy/AdvReac Type Severity Reaction Status Date / Time Cephalosporins Allergy Intermediate Hives Verified 07/22/22 21:15 Sulfa (Sulfonamide Allergy Intermediate Hives Verified 07/22/22 21:15 Antibiotics) azithromycin [From Zithromax] AdvReac Intermediate Hives Verified 07/22/22 21:15 Home Medications Medication Instructions Recorded Confirmed Type melatonin 5 mg tablet 5 mg PO HS 05/15/20 07/22/22 History blood sugar diagnostic (Contour #400 ea 08/06/21 06/25/22 Rx Next Test Strips) insulin aspart U-100 100 unit/mL 0 unit continuous subcutaneous 10/04/21 07/22/22 History subcutaneous solution infusion CONTINOUS glucagon 3 mg/actuation nasal 3 mg intranasal DIRECTED PRN 11/02/21 07/22/22 Rx spray (Baqsimi) Hypoglycemia #2 ea Patient History Medical History Anemia Cyclic vomiting syndrome Diabetes type 1, uncontrolled Gastroparesis Hematemesis Hepatitis History of opioid abuse Hypokalemia Hypomagnesemia Intractable cyclical vomiting with nausea Intractable vomiting with nausea Marijuana use Methadone dependence Pneumomediastinum Soft tissue abscess Type I diabetes mellitus Surgical History No pertinent past surgical history Family History Father Valvular heart disease Mother Hypothyroidism Other Cancer Diabetes Heart disease Hypertension Social History Smoking Status: Never smoker Tobacco Type: E-cigarettes / Vaping Cigarettes Per Day: 3; Second Hand Exposure: No; Hx Alcohol Use: No Hx Substance Use: No Preferred Language: Mosotho Communication Ability: Effective Senior Manufacturing Engineer Required: No Beliefs That Will Affect Care: None marital status: Single Current Living Situation: Alone current occupational status: unemployed How many Children do You have: 0 Other Information That Helps Us Care for You: No Feels Safe at Home: Yes Safety Concerns: Feels Safe At This Time during the past year weight has: decreased > 10 lbs Assistive Devices: None Review of Systems Constitutional: no fever and no chills Eyes: no eye pain Ear, Nose, Mouth, Throat: no ear pain Respiratory: no cough and no dyspnea Cardiovascular: no chest pain Gastrointestinal: as per Subjective / HPI Genitourinary: no dysuria Musculoskeletal: no back pain Integumentary: no rash Neurologic: no localized weakness Physical Exam Constitutional: well developed and well nourished; no acute distress Eyes: + anicteric sclerae ENMT: Ears: no hearing impairment and no external ear abnormality Mouth: no oropharynx abnormality Neck: trachea midline Respiratory: normal respiratory effort, lungs clear to auscultation Cardiovascular: Rate/Rhythm: regular rate and regular rhythm Vessels: dorsalis pedis pulses present and radial pulses present Gastrointestinal (Abdomen): Abdomen is soft and nondistended. It is nonrigid. Bowel sounds are present. There is mild pain with palpation in the right upper quadrant but Lima sign is negative. There is no rebound tenderness or guarding. Musculoskeletal: Feet are warm and non-mottled. There are no nonhealing foot wounds. No calf tenderness is noted. Skin: no rashes Neurologic: moves all extremities Psychiatric: Orientation: alert and oriented x 3 Affect: + flat affect Results & Data ([facility]) Vital Signs (Past 12 Hours) Vital Signs Temp Pulse Pulse Resp BP BP Pulse Ox 07/23/22 01:33 102 H 18 127/68 98 07/22/22 23:10 109 H 18 113/54 L 95 07/22/22 22:59 120 H 22 141/93 H 97 07/22/22 21:12 88 20 139/88 97 07/22/22 17:33 36.7 C 84 20 145/84 H 100 O2 Del Method 07/23/22 01:33 Room Air 07/22/22 23:10 Room Air 07/22/22 22:59 Room Air 07/22/22 21:12 Room Air 07/22/22 17:33 Room Air PG Care Time/CCT Total # of Minutes Spent Total Time Spent with Patient: Total time spent is greater than 50% in coordination of care (as documented) at patient's floor/unit and/or counseling patient: Coding Level of Care Code INP/OBS CONSULT LVL 5, 80 MIN Diagnoses Cholelithiasis K80.20 Transaminitis R74.01
--- NOTE | 2022-07-23 02:59 | History & Physical Report ---
Date of Service July 23, 2022 Assessment & Plan (1) Transaminitis: Plan: 27-year-old man with type 1 diabetes, cannabinoid hyperemesis syndrome, gastroparesis, who presented with nausea and vomiting and admitted for management of acute transaminitis >1000s. Transaminitis/hyperbilirubinemia -AST predominant (1127 to 294), bilirubin 1.1, alk phos 159. Lipase wnl. No acute illness, COVID-19 negative. -Surgery consulted in the ED: Imaging equivocal for cholelithiasis. Recommended pain control, antiemetics, GI consult for further input. * Admit to MedSurg. Made n.p.o. * Lactated Ringer @maintenance rate * Pain control: As needed IV Toradol, IV morphine. Can convert IV Toradol to scheduled, with IV morphine 2 mg, 1 mg as needed for breakthrough pain. * Antibiotics: IV ceftriaxone 2 g daily * IV Zofran 4 mg every 4 hours as needed * GI consulted. Appreciate recs * Trend transaminases Type 1 diabetes/hyperglycemia -Normally wears insulin pump at home. However, left at home as he wanted to change the site. -Blood glucose 239 in the ED. * SQ sliding scale insulin per protocol * Hemoglobin A1c pending Nausea * See antiemetic plan above Code: Full code Dispo: Med-Surg FEN/GI: NPO DVT Prophylaxis: None PT/OT: No Consults: GI (2) Diabetes type 1, uncontrolled: (3) Hyperbilirubinemia: (4) Nausea & vomiting: History of Present Illness Primary Care Provider: NO PCP Luis is a 27-year-old man with history of insulin-dependent diabetes, cannabinoid hyperemesis syndrome, gastroparesis, who presented to the emergency department with a chief complaint of nausea and vomiting (5-10 episodes of emesis) since approximately 10 AM this morning. He also reported some right flank pain. In the ED, vitals were notable for tachycardia from 100s-120s. His labs were notable for a AST of 1127, ALT of 294, glucose of 239, bilirubin of 1.1, and alk phos of 159. Lipase was normal at 28. Gallbladder ultrasound showed gallbladder collapse with mild wall thickening, multiple adherent calculi, possible adenomyomatosis of the gallbladder. CT A/P showed mild distention of the gallbladder without definite gallbladder wall thickening. There was no evidence of bowel wall thickening or obstruction, nor was there evidence of hydronephrosis. He received IV Zofran, IV Reglan and IV morphine 4 mg x2 doses for his symptoms and started on a 2 L IV NSS bolus. On admission, he corroborates the HPI. He denies nausea, vomiting, abdominal pain, or back pain. Allergies Allergy/AdvReac Type Severity Reaction Status Date / Time Cephalosporins Allergy Intermediate Hives Verified 07/22/22 21:15 Sulfa (Sulfonamide Allergy Intermediate Hives Verified 07/22/22 21:15 Antibiotics) azithromycin [From Zithromax] AdvReac Intermediate Hives Verified 07/22/22 21:15 Home Medications Medication Instructions Recorded Confirmed Type melatonin 5 mg tablet 5 mg PO HS 05/15/20 07/22/22 History blood sugar diagnostic (Contour #400 ea 08/06/21 06/25/22 Rx Next Test Strips) insulin aspart U-100 100 unit/mL 0 unit continuous subcutaneous 10/04/21 07/22/22 History subcutaneous solution infusion CONTINOUS glucagon 3 mg/actuation nasal 3 mg intranasal DIRECTED PRN 11/02/21 07/22/22 Rx spray (Baqsimi) Hypoglycemia #2 ea Past Med/Surg History Medical History Anemia Cyclic vomiting syndrome Diabetes type 1, uncontrolled Gastroparesis Hematemesis Hepatitis History of opioid abuse Hypokalemia Hypomagnesemia Intractable cyclical vomiting with nausea Intractable vomiting with nausea Marijuana use Methadone dependence Pneumomediastinum Soft tissue abscess Type I diabetes mellitus Surgical History No pertinent past surgical history Family History Father Valvular heart disease Mother Hypothyroidism Other Cancer Diabetes Heart disease Hypertension Social History Smoking Status: Never smoker Tobacco Type: E-cigarettes / Vaping Cigarettes Per Day: 3; Second Hand Exposure: No; Hx Alcohol Use: No Hx Substance Use: No Preferred Language: Greek Communication Ability: Effective Epoxy Fabrication Supervisor Required: No Beliefs That Will Affect Care: None marital status: Single Current Living Situation: Alone current occupational status: unemployed How many Children do You have: 0 Other Information That Helps Us Care for You: No Feels Safe at Home: Yes Safety Concerns: Feels Safe At This Time during the past year weight has: decreased > 10 lbs Assistive Devices: None Review of Systems Review of Systems: All systems reviewed & are unremarkable except as noted in HPI & below Physical Exam Physical Exam: General: No acute distress HEENT: PERRLA. Normal conjunctiva, anicteric sclera. Oropharynx normal. Respiratory: Normal respiratory effort, CTA BL. Cardiovascular: RRR without murmurs, gallops, or rubs. No edema. GI: Soft abdomen with normal bowel sounds heard on auscultation. Nontender x4 quadrants Neuro: Alert and oriented x3. Results & Data Results & Data ([facility]) Vital Signs (Past 12 Hours) Vital Signs Temp Pulse Pulse Resp BP BP Pulse Ox 07/23/22 01:33 102 H 18 127/68 98 07/22/22 23:10 109 H 18 113/54 L 95 07/22/22 22:59 120 H 22 141/93 H 97 07/22/22 21:12 88 20 139/88 97 07/22/22 17:33 36.7 C 84 20 145/84 H 100 O2 Del Method 07/23/22 01:33 Room Air 07/22/22 23:10 Room Air 07/22/22 22:59 Room Air 07/22/22 21:12 Room Air 07/22/22 17:33 Room Air Supervising Physician Co-Signing Physician Notes patient seen and examined, chart reviewed, case discussed with Dr. Walter and I agree with the assessment and plan as above. In brief, patient is a 27yo male w ith DM-I presenting with nausea, vomiting and transaminitis with AST of 1127 On exam he is afebrile, HD stable, resting comfortably +S1/S2, regular, no m/r/g Lungs CTA Abd soft, NT/ND, mild RUQ tenderness with no rebound/guarding Ext - warm, well perfused Labs and images reviewed. SKE=7641 ALT= 294 HU=390 Tbili=1.1 Gallbladder US with cholelithiasis with GB distention and adenomyomatosis. No biliary ductal dilatation. Equivocal study for acute cholecystitis Assessment/Plan -Repeat LFTs, check acute hepatitis panel -GI and General Surgery consultation appreciated -IVF, pain control and anti-emetics -Antibiotic coverage for now -Remainder as above Resident Activity Tracking Resident Involvement: Resident Care Provided Care Provided: Adult Hospital Medicine (1) Diabetes type 1, uncontrolled Glycemic state: with hyperglycemia Qualified Code(s): E10.65 - Type 1 diabetes mellitus with hyperglycemia
[2022-07-23] MEDS ORDERED: MoRPHine SULFATE 2 MG/ML CARP IV PRN (03:36)
[2022-07-23] MEDS: MoRPHine SULFATE 2 MG/ML CARP IV PRN ×3 (05:12→21:53)
[2022-07-23] MEDS: ONDANSETRON INJ 2 MG/ML 2 ML VIAL IV PRN (05:12)
[2022-07-23] MEDS: LACTATED RINGER'S 1,000 ML IV SCH ×2 (05:12→13:49)
[2022-07-23] MEDS ORDERED: GLUCOSE 40% GEL 15 GM TUBE PO PRN (05:27)
[2022-07-23] MEDS ORDERED: GLUCAGON FOR INJ 1 MG VIAL SQ PRN (05:27)
[2022-07-23] MEDS ORDERED: GLUCOSE 10 TAB/TUBE PO PRN (05:27)
[2022-07-23 07:02] LABS: Albumin Globulin Ratio 1.7 (0.9-2); Albumin Level 3.7 gm/dl (3.4-5.0); Alkaline Phosphatase 163 U/L (34-104); Anion Gap 8 (3-11); BUN Creatinine Ratio 16.4 (10-20); Bilirubin,Total 2.3 mg/dl (0.2-1.0); Blood Urea Nitrogen 11 mg/dl (6-23); Calcium 8.8 mg/dl (8.5-10.1); Carbon Dioxide 27 mmol/L (21-32); Chloride 106 mmol/L (98-107); Creatinine Clr Calc Pharmacy 189.1 ml/min; Est GFR (African American) > 150.0 ml/min; Est GFR (Non-African American) 132.6 ml/min; Globulin 2.2 gm/dl (2.5-4.0); Glucose 125 mg/dl (70-99(Fasting)); Potassium 3.4 mmol/L (3.5-5.1); Sodium 141 mmol/L (136-145); Total Protein 5.9 gm/dl (6.0-8.3)
[2022-07-23 07:35] LABS: Alanine Aminotransferase 656 U/L (7-52); Aspartate Aminotransferase 1136 U/L (13-39)
[2022-07-23 07:39] LABS: Basophils # (auto) 0.03 K/uL (0-0.2); Basophils % (auto) 0.5 %; Eosinophils # (auto) 0.06 K/uL (0-0.50); Hematocrit (blood only) 36.2 % (42.0-52.0); Hemoglobin 12.3 g/dl (14.0-18.0); Immature Granulocytes # (auto) 0.02 K/uL (0.01-0.20); Immature Granulocytes % (auto) 0.3 %; Lymphocytes # (auto) 1.67 K/uL (1.2-3.4); Lymphocytes % (auto) 29.1 %; Mean Corpuscular Hemoglobin 30.4 pg (25.0-34.0); Mean Corpuscular Volume 89.6 fL (80.0-100.0); Mean Platelet Volume 10.3 fL (9.4-12.4); Monocytes # (auto) 0.44 K/uL (0.11-0.59); Monocytes % (auto) 7.7 %; Neutrophils # (auto) 3.51 K/uL (1.40-6.50); Neutrophils % (auto) 61.4 %; Platelet Count 238 K/uL (130-400); RDW Coefficient of Variation 12.4 % (11.5-14.5); Red Blood Count 4.04 M/uL (4.70-6.10); White Blood Count 5.73 K/ul (4.8-10.8)
--- NOTE | 2022-07-23 08:19 | Ultrasound Report ---
US gallbladder HISTORY: 27 years-old Male Nausea and vomiting, transaminitis acute nausea and vomiting with right u pper quadrant abdominal pain COMPARISON: CT 07/22/2022, ultrasound 01/11/2019 TECHNIQUE: Multiple real-time sonographic images of the abdominal right upper quadrant were obtained assessing grayscale appearance and color flow FINDINGS: The visualized pancreas is unremarkable. The liver measures 21 m in length. The gallbladder is disten ded measuring up to 14 cm in length. There is increased echogenicity of the gallbladder wall with rin gdown artifact. Gallbladder wall measures 2 mm. Layering sludge with posterior acoustic shadowing wit hin the gallbladder. No pericholecystic fluid. The sonographic Lima sign was unable to be assessed secondary to patient recently receiving pain medication. Normal common bile duct, 4 mm. The imaged right kidney is unremarkable without hydronephrosis. IMPRESSION: 1. Cholelithiasis with gallbladder distention and adenomyomatosis. No pericholecystic fluid was ident ified. Findings should be correlated with laboratory analysis and clinical exam findings to exclude a cute cholecystitis. Nuclear medicine hepatobiliary scan may also be considered. 2. No biliary ductal dilation. ACT 112: Negative or not required by law. The above report was generated using voice recognition software. It may contain grammatical, syntax o r spelling errors. Electronically signed by: Hu Sorto M.D. 07/23/2022 8:17 AM
--- NOTE | 2022-07-23 08:19 | Hospitalist Progress Note ---
Date of Service July 23, 2022 Assessment & Plan (1) Transaminitis: Plan: 27-year-old man with type 1 diabetes, gastroparesis, and OUD in remission who presented with nausea and vomiting and admitted for management of acute transaminitis >1000s. Hepatocellular Transaminitis -Patient presented with n/v and R flank pain that has occurred intermittently over the last 6 months -Workup as follows: -No white count. CRP, ESR, procal pending. -AST predominant (1127 to 294), bilirubin 1.1, alk phos 159. Lipase wnl. -RUQ US demonstrating gallbladder distention with adenomyomatosis, no pericholecystic fluid. No biliary ductal dilation -CT-A/P: Mildly distended gallbladder. -Patient reports h/o OUD, unclear at this time if this included IVDU -LFTs have more of a hepatocellular pattern than cholestatic. His LFTs are profoundly elevated despite no e/o biliary ductal dilation or gross inflammatory changes of the gallbladder (but distention noted). Suspect that some of his R flank pain may have some role in the last 6mo, but difficult to say. Lower suspicion that his gallbladder is source of transaminitis as not really a cholestatic pattern. Larger suspicion for viral hepatitis; autoimmune also con sidered given T1DM, +FHx of thyroid disease. -Surgery and GI following -- no need for acute intervention, ok to stop ABX -Pain: Toradol, morphine PRN -Trend transaminases -- if no improvement and/or hepatitis serologies return negative, could consider CMV/EBV/autoimmune hepatitis panel Type 1 Diabetes (A1c 7.4%) -Normally wears insulin pump at home. However, left at home as he wanted to change the site. -Glycemic consultation appreciated while here given NPO, ill state, likely fluctuating insulin requirements Nausea with Vomiting -Intermittent bouts of R flank pain intermixed with nausea and vomiting that are not prandially related x 6mo -Patient does have h/o gastroparesis, which is noted -Suspect somehow related to the transaminitis outlined above -- but not exactly clear. Lower suspicion this is MICHELLE given infrequent and low %THC content in his reported cannabis use -Symptomatic management for now as above Code: Full code Dispo: Med-Surg FEN/GI: Clears, AAT; LR @ 100cc/hr x 2L DVT Prophylaxis: None PT/OT: No Consults: GI (2) Diabetes type 1, uncontrolled: (3) Hyperbilirubinemia: (4) Nausea & vomiting: Admission and Anticipated Discharge Date Admission Date: July 23, 2022 Supervising Physician Co-Signing Physician Notes 27-year-old male with past medical history pertinent for type 1 diabetes and chronic GI complaints with intractable emesis and elevation of transaminases. Unclear etiology. No urgent cholecystectomy required at this time. Will start trial of p.o. intake, advancing as tolerated. Patient examined with resident, agree with documentation of history, physical exam, and plan as above. Subjective NAEO. Really tired this morning. No pain. No recent illnesses. Denies f/c/NS. He tells me that these epigastric/retroperitoneal pain has been ongoing for ~6 months or so It doesn't seem to have a pattern -- usually pretty random Nausea/vomiting can begin before or start after Not specifically postprandially He does report a history of OUD He did not use any MAT therapy Has been in remission for 4 years Utilizes medical cannabis, approx. 20% THC content at this time for OUD Review of Systems Review of Systems: as per HPI Physical Exam Physical Exam: General: 27-year old male who is somnolent and intermittently falls back asleep, but is A&O in responding to questions. Pale-appearing. HEENT: NCAT. - Eyes - Sclera are white, anicteric, and without injection. - Mouth - MMM - Neck - supple, no appreciable JVD Cardiac: Normal rate and regular rhythm; S1 and S2 present with no murmurs, rubs, or gallops. Pulmonary: Good respiratory effort with symmetric expansion of the chest. No use of accessory muscles. Lungs were clear to auscultation bilaterally with no crackles or wheezes. Abdominal: Normoactive bowel sounds. Abdomen was soft, nondistended, and non- tender to palpation. Lima's NEGATIVE. Extremities: Upper and lower extremities are warm and well perfused. No peripheral edema in the lower extremities bilaterally Psych: Well-developed, well-nourished, appropriately dressed for occasion. Behavior is cooperative and appropriate. Affect is WNL. Insight is appropriate. Results & Data Results & Data ([facility]) Vital Signs (Past 12 Hours) Vital Signs Temp Pulse Resp BP Pulse Ox O2 Del Method 07/23/22 07:28 36.7 C 81 16 119/79 98 Room Air 07/23/22 05:22 36.9 C 88 18 138/82 99 Room Air 07/23/22 04:54 Room Air 07/23/22 03:00 85 18 130/67 98 Room Air 07/23/22 01:33 102 H 18 127/68 98 Room Air 07/22/22 23:10 109 H 18 113/54 L 95 Room Air 07/22/22 22:59 120 H 22 141/93 H 97 Room Air 07/22/22 21:12 88 20 139/88 97 Room Air Resident Activity Tracking Resident Involvement: Resident Care Provided Care Provided: Adult Hospital Medicine (1) Diabetes type 1, uncontrolled Glycemic state: with hyperglycemia Qualified Code(s): E10.65 - Type 1 diabetes mellitus with hyperglycemia
[2022-07-23] MEDS: DEXTROSE 50% 50 ML SYRINGE IV PRN (08:44)
[2022-07-23] MEDS: INSULIN ASPART PER UNIT SC SCH ×4 (09:22→21:47)
[2022-07-23] MEDS: cefTRIAXone SODIUM 2,000 MG/70 ML BAG IV STA ×2 (09:25→12:35)
[2022-07-23 09:36] LABS: Appearance Urine Clear (Clear); Bacteria Urine Automated Negative (Negative); Blood Urine Negative (Negative); Cast Urine Automated 0 /lpf (0-5); Color Urine Dark Yellow; Glucose Urine UA 3+ (Negative); Ketones Urine 3+ (Negative); Leukocyte Esterase Urine Trace (Negative); Nitrite Urine Positive (Negative); RBC Urine Automated 0-4 /hpf (0-4); Specific Gravity Urine 1.041 (1.000-1.030); Urobilinogen Urine Negative (Negative); pH Urine 7.5 (4.5-7.5)
[2022-07-23 09:38] LABS: Bilirubin Urine 2+ (Negative); Protein Urine 1+ (Negative)
--- NOTE | 2022-07-23 10:10 | Gastrointestinal Consultation ---
Date of Consultation July 23, 2022 Assessment & Plan (1) Cholelithiasis: (2) Transaminitis: (3) Nausea & vomiting: Plan Discussed with Dr. Valencia who advised on plan. - Suspect at this time that transaminitis is related to the patients gallbladder given that these were normal just one month ago. surgery is on board and following. no biliary dilation seen on US. Will order an acute hepatitis panel to evaluate. Supervising Physician Co-Signing Physician Notes Agree with ISABELA Hammer as above Feeling much better today Abd: Soft, NT, ND, +BS Continue current therapy and supportive care Appreciate Surgery input Will need to re-check liver panel until it returns to normal over the next several months. History of Present Illness Reason for Consultation: Transaminitis Requesting Physician: Dr. Carmen Walter Attending Physician: Kristi Blackburn DO History of Present Illness Patient is a 27 year old male with history of insulin-dependent diabetes, cannabinoid hyperemesis syndrome, gastroparesis who usually follows with [facility], presentsed emergency department yesterday with complaints of nausea, vomiting, as well as right sided flank pain that he tells me has been going on for the past 6 months. His symptoms had worsened the day of presentation to the ED and upon work up he had new elevated lfts. 07/22/22 LFTs as follows: AST 1127, ALT 294, ALK phos 159, total bili 1.1. US done 07/22/22 shown cholelithiasis with gallbaldder distention that could be suggestive of cholecystitis. no biliary dilation. Patient tells me that since admission he feels a little better this morning. no current nausea. he denies further emesis. Currently pain controlled. LFTs 07/23/22 T bili 2.3, ast 1136, ALT 656, alk phos 163. The patient denies any current issues with dysphagia, heartburn, unintentional weight loss, change in bowels, melena, or bright red blood per rectum. He had his last EGD reportedly in 2019 showing just gastritis. Allergies Allergy/AdvReac Type Severity Reaction Status Date / Time Cephalosporins Allergy Intermediate Hives Verified 07/22/22 21:15 Sulfa (Sulfonamide Allergy Intermediate Hives Verified 07/22/22 21:15 Antibiotics) azithromycin [From Zithromax] AdvReac Intermediate Hives Verified 07/22/22 21:15 Home Medications Medication Instructions Recorded Confirmed Type melatonin 5 mg tablet 5 mg PO HS 05/15/20 07/22/22 History blood sugar diagnostic (Contour #[id number] ea 08/06/21 06/25/22 Rx Next Test Strips) insulin aspart U-100 100 unit/mL 0 unit continuous subcutaneous 10/04/21 07/22/22 History subcutaneous solution infusion CONTINOUS glucagon 3 mg/actuation nasal 3 mg intranasal DIRECTED PRN 11/02/21 07/22/22 Rx spray (Baqsimi) Hypoglycemia #2 ea Patient History Medical History Anemia Cyclic vomiting syndrome Diabetes type 1, uncontrolled Gastroparesis Hematemesis Hepatitis History of opioid abuse Hypokalemia Hypomagnesemia Intractable cyclical vomiting with nausea Intractable vomiting with nausea Marijuana use Methadone dependence Pneumomediastinum Soft tissue abscess Type I diabetes mellitus Surgical History No pertinent past surgical history Family History Father Valvular heart disease Mother Hypothyroidism Other Cancer Diabetes Heart disease Hypertension Social History Smoking Status: Never smoker Tobacco Type: E-cigarettes / Vaping Cigarettes Per Day: 3; Second Hand Exposure: No; Hx Alcohol Use: No Hx Substance Use: No Preferred Language: Bengali Communication Ability: Effective Emergency Department Rn Required: No Beliefs That Will Affect Care: None marital status: Single Current Living Situation: Alone current occupational status: unemployed How many Children do You have: 0 Other Information That Helps Us Care for You: No Feels Safe at Home: Yes Safety Concerns: Feels Safe At This Time during the past year weight has: decreased > 10 lbs Assistive Devices: None Review of Systems Review of Systems: All systems reviewed & are unremarkable except as noted in HPI & below Physical Exam Constitutional: WD/WN, vitals as above Respiratory: normal respiratory effort, lungs clear to auscultation Cardiovascular: RRR, no murmur, no edema Gastrointestinal (Abdomen): normal bowel sounds, soft, nontender, no hepatosplenomegaly Skin: no rashes, warm and dry Psychiatric: Orientation: alert and oriented x 3 Affect: euthymic affect Results & Data ([facility]) Vital Signs (Past 12 Hours) Vital Signs Temp Pulse Resp BP Pulse Ox O2 Del Method 07/23/22 07:28 36.7 C 81 16 119/79 98 Room Air 07/23/22 05:22 36.9 C 88 18 138/82 99 Room Air 07/23/22 04:54 Room Air 07/23/22 03:00 85 18 130/67 98 Room Air 07/23/22 01:33 102 H 18 127/68 98 Room Air 07/22/22 23:10 109 H 18 113/54 L 95 Room Air 07/22/22 22:59 120 H 22 141/93 H 97 Room Air Diagnostic Findings US gallbladder HISTORY: 27 years-old Male Nausea and vomiting, transaminitis acute nausea and vomiting with right upper quadrant abdominal pain COMPARISON: CT 07/22/2022, ultrasound 01/11/2019 TECHNIQUE: Multiple real-time sonographic images of the abdominal right upper quadrant were obtained assessing grayscale appearance and color flow FINDINGS: The visualized pancreas is unremarkable. The liver measures 21 m in length. The gallbladder is distended measuring up to 14 cm in length. There is increased echogenicity of the gallbladder wall with ringdown artifact. Gallbladder wall measures 2 mm. Layering sludge with posterior acoustic shadowing within the gallbladder. No pericholecystic fluid. The sonographic Lima sign was unable to be assessed secondary to patient recently receiving pain medication. Normal common bile duct, 4 mm. The imaged right kidney is unremarkable without hydronephrosis. IMPRESSION: 1. Cholelithiasis with gallbladder distention and adenomyomatosis. No pericholecystic fluid was identified. Findings should be correlated with laboratory analysis and clinical exam findings to exclude acute cholecystitis. Nuclear medicine hepatobiliary scan may also be considered. 2. No biliary ductal dilation. ACT 112: Negative or not required by law. The above report was generated using voice recognition software. It may contain grammatical, syntax or spelling errors. Electronically signed by: Hu Sorto M.D. 07/23/2022 8:17 AM PG Care Time/CCT Total # of Minutes Spent Total Time Spent with Patient: Total time spent is greater than 50% in coordination of care (as documented) at patient's floor/unit and/or counseling patient: Coding Level of Care Code INP/OBS CONSULT LVL 2, 35 MIN Diagnoses Cholelithiasis K80.20 Transaminitis R74.01 Nausea & vomiting R11.2
[2022-07-23 11:16] LABS: Estimated Average Glucose 166 mg/dl; Hemoglobin A1C 7.4 % (4.5-5.6)
[2022-07-23] MEDS ORDERED: INSULIN ASPART PER UNIT SC SCH (12:00)
[2022-07-23] MEDS ORDERED: Nursing to Pharmacy Communication SCH ×2 (12:00→15:30)
[2022-07-23 12:49] LABS: Monotest Negative (Negative)
[2022-07-23] MEDS ORDERED: PIPERACILLIN/TAZOBACTAM 3.375 GM (over 30 mins) IV ONE (13:00)
[2022-07-23 13:03] LABS: Procalcitonin 0.24 ng/ml (0-0.5)
[2022-07-23] MEDS ORDERED: PHARMACY GLYCEMIC MGMT CONSULT PRN (15:22)
[2022-07-23] MEDS ORDERED: PIPERACILLIN/TAZOBACTAM 3.375 GM in DEXTROSE 5% 100 ML IV SCH (18:00)
[2022-07-23] MEDS ORDERED: LANTUS PER UNIT CHARGE SQ SCH (21:00)
[2022-07-23] MEDS: MELATONIN 3 MG TAB PO SCH (21:45)
[2022-07-23] MEDS: KETOROLAC TROMETHAMINE 15 MG/ML VIAL IV PRN (21:53)
--- NOTE | 2022-07-23 22:09 | Billing Data ---
Date of Service July 23, 2022 Coding Level of Care Code 46993 INT INP/OBS CARE
[2022-07-24] MEDS ORDERED: INSULIN ASPART PER UNIT SC SCH (02:00)
[2022-07-24 06:05] LABS: Basophils # (auto) 0.03 K/uL (0-0.2); Basophils % (auto) 0.5 %; Eosinophils # (auto) 0.23 K/uL (0-0.50); Eosinophils % (auto) 3.8 %; Hematocrit (blood only) 34.1 % (42.0-52.0); Hemoglobin 11.2 g/dl (14.0-18.0); Immature Granulocytes # (auto) 0.02 K/uL (0.01-0.20); Immature Granulocytes % (auto) 0.3 %; Lymphocytes # (auto) 2.03 K/uL (1.2-3.4); Lymphocytes % (auto) 33.4 %; Mean Corpuscular Hemoglobin 29.9 pg (25.0-34.0); Mean Corpuscular Hgb Conc 32.8 g/dL (32.0-36.0); Mean Corpuscular Volume 90.9 fL (80.0-100.0); Mean Platelet Volume 9.9 fL (9.4-12.4); Monocytes # (auto) 0.48 K/uL (0.11-0.59); Monocytes % (auto) 7.9 %; Neutrophils # (auto) 3.29 K/uL (1.40-6.50); Neutrophils % (auto) 54.1 %; Platelet Count 223 K/uL (130-400); RDW Coefficient of Variation 12.7 % (11.5-14.5); RDW Standard Deviation 42.5 fL (36.4-46.3); Red Blood Count 3.75 M/uL (4.70-6.10); White Blood Count 6.08 K/ul (4.8-10.8)
[2022-07-24 06:44] LABS: Albumin Globulin Ratio 1.6 (0.9-2); Albumin Level 3.4 gm/dl (3.4-5.0); Bilirubin,Total 0.9 mg/dl (0.2-1.0); Calcium 8.3 mg/dl (8.5-10.1); Creatinine Clr Calc Pharmacy 158.3 ml/min; Est GFR (African American) 142.9 ml/min; Est GFR (Non-African American) 123.3 ml/min; Globulin 2.1 gm/dl (2.5-4.0); Magnesium 1.7 mg/dl (1.7-2.4); Phosphorus 3.8 mg/dl (2.5-4.9); Potassium 4.1 mmol/L (3.5-5.1); Total Protein 5.5 gm/dl (6.0-8.3)
--- NOTE | 2022-07-24 08:41 | Surgery Progress Note ---
Date of Service July 24, 2022 Assessment & Plan (1) Nausea & vomiting: Plan: Could be multifactorial given gastroparesis, diabetes, cannabis use, gallstones. (2) Transaminitis: Plan: Improving. Viral hepatitis panel pending. GI thinks it is more likely related to gallbladder disease. (3) Cholelithiasis: Plan: Primary service will discuss lap cholecystectomy with him once lft's are better, hepatitis panel results in. No new recommendations. Admission and Anticipated Discharge Date Admission Date: July 23, 2022 Subjective Sleeping. When awakened, denies any nausea or abdominal pain presently. Very tired. Physical Exam Constitutional: WD/WN, vitals as above Respiratory: normal respiratory effort, lungs clear to auscultation Cardiovascular: RRR, no murmur, no edema Gastrointestinal (Abdomen): normal bowel sounds, soft, nontender, no hepatosplenomegaly Neurologic: awake; no focal motor deficits Results & Data ([facility]) Vital Signs (Past 12 Hours) Vital Signs Temp Pulse Resp BP Pulse Ox O2 Del Method 07/24/22 07:27 36.7 C 70 18 126/77 98 Room Air 07/23/22 22:15 36.9 C 75 18 122/80 99 Room Air Laboratory Results Abnormal lab results 07/23/22 07/23/22 07/23/22 Range/Units 05:28 05:28 08:59 RBC (4.70-6.10) M/uL Hgb (14.0-18.0) g/dl Hct (42.0-52.0) % ESR 16 H (0-15) mm/hr Glucose (70-99(Fasting)) mg/dl POC Glucose 131 H (70-99) mg/dl Hemoglobin A1c 7.4 H (4.5-5.6) % Calcium (8.5-10.1) mg/dl AST (13-39) U/L ALT (7-52) U/L Alkaline Phosphatase (34-104) U/L Total Protein (6.0-8.3) gm/dl Globulin (2.5-4.0) gm/dl Ur Specific [place] (1.000-1.030) Urine Protein (Negative) Urine Glucose (UA) (Negative) Urine Ketones (Negative) Urine Nitrite (Negative) Urine Bilirubin (Negative) Ur Leukocyte Esterase (Negative) U Epithel Cells (Auto) (0-5) /[facility] 07/23/22 07/23/22 07/23/22 Range/Units 09:14 12:19 17:29 RBC (4.70-6.10) M/uL Hgb (14.0-18.0) g/dl Hct (42.0-52.0) % ESR (0-15) mm/hr Glucose (70-99(Fasting)) mg/dl POC Glucose 201 H 143 H (70-99) mg/dl Hemoglobin A1c (4.5-5.6) % Calcium (8.5-10.1) mg/dl AST (13-39) U/L ALT (7-52) U/L Alkaline Phosphatase (34-104) U/L Total Protein (6.0-8.3) gm/dl Globulin (2.5-4.0) gm/dl Ur Specific [place] 1.041 H (1.000-1.030) Urine Protein 1+ H (Negative) Urine Glucose (UA) 3+ H (Negative) Urine Ketones 3+ H (Negative) Urine Nitrite Positive A (Negative) Urine Bilirubin 2+ H (Negative) Ur Leukocyte Esterase Trace H (Negative) U Epithel Cells (Auto) 5-10 H (0-5) /[facility] 07/23/22 07/24/22 07/24/22 Range/Units 20:41 02:18 02:19 RBC (4.70-6.10) M/uL Hgb (14.0-18.0) g/dl Hct (42.0-52.0) % ESR (0-15) mm/hr Glucose (70-99(Fasting)) mg/dl POC Glucose 242 H 56 L* 61 L* (70-99) mg/dl Hemoglobin A1c (4.5-5.6) % Calcium (8.5-10.1) mg/dl AST (13-39) U/L ALT (7-52) U/L Alkaline Phosphatase (34-104) U/L Total Protein (6.0-8.3) gm/dl Globulin (2.5-4.0) gm/dl Ur Specific [place] (1.000-1.030) Urine Protein (Negative) Urine Glucose (UA) (Negative) Urine Ketones (Negative) Urine Nitrite (Negative) Urine Bilirubin (Negative) Ur Leukocyte Esterase (Negative) U Epithel Cells (Auto) (0-5) /[facility] 07/24/22 07/24/22 07/24/22 Range/Units 02:32 03:42 05:44 RBC 3.75 L (4.70-6.10) M/uL Hgb 11.2 L (14.0-18.0) g/dl Hct 34.1 L (42.0-52.0) % ESR (0-15) mm/hr Glucose (70-99(Fasting)) mg/dl POC Glucose 64 L* 140 H (70-99) mg/dl Hemoglobin A1c (4.5-5.6) % Calcium (8.5-10.1) mg/dl AST (13-39) U/L ALT (7-52) U/L Alkaline Phosphatase (34-104) U/L Total Protein (6.0-8.3) gm/dl Globulin (2.5-4.0) gm/dl Ur Specific [place] (1.000-1.030) Urine Protein (Negative) Urine Glucose (UA) (Negative) Urine Ketones (Negative) Urine Nitrite (Negative) Urine Bilirubin (Negative) Ur Leukocyte Esterase (Negative) U Epithel Cells (Auto) (0-5) /[facility] 07/24/22 07/24/22 Range/Units 05:44 08:19 RBC (4.70-6.10) M/uL Hgb (14.0-18.0) g/dl Hct (42.0-52.0) % ESR (0-15) mm/hr Glucose 197 H (70-99(Fasting)) mg/dl POC Glucose 220 H (70-99) mg/dl Hemoglobin A1c (4.5-5.6) % Calcium 8.3 L (8.5-10.1) mg/dl AST 287 H (13-39) U/L ALT 460 H (7-52) U/L Alkaline Phosphatase 145 H (34-104) U/L Total Protein 5.5 L (6.0-8.3) gm/dl Globulin 2.1 L (2.5-4.0) gm/dl Ur Specific [place] (1.000-1.030) Urine Protein (Negative) Urine Glucose (UA) (Negative) Urine Ketones (Negative) Urine Nitrite (Negative) Urine Bilirubin (Negative) Ur Leukocyte Esterase (Negative) U Epithel Cells (Auto) (0-5) /lpf
[2022-07-24] MEDS: INSULIN ASPART PER UNIT SC SCH ×4 (09:29→21:50)
[2022-07-24] MEDS: KETOROLAC TROMETHAMINE 15 MG/ML VIAL IV PRN ×2 (12:49→21:51)
--- NOTE | 2022-07-24 13:56 | Pharmacy Report ---
Pharmacy Glycemic Short Note 2 - Date of Service July 24, 2022 - Glycemic Short BSG Results (Last 24 hours): 07/23/22 07/23/22 07/24/22 17:29 20:41 02:18 Glucose POC Glucose 143 H 242 H 56 L* 07/24/22 07/24/22 07/24/22 02:19 02:32 02:44 Glucose POC Glucose 61 L* 64 L* 81 07/24/22 07/24/22 07/24/22 03:42 05:44 08:19 Glucose 197 H POC Glucose 140 H 220 H 07/24/22 12:36 Glucose POC Glucose 92 OUTPATIENT ANTIDIABETIC REGIMEN: * Insulin pump - up to 60 units/day ASSESSMENT: * Mr Tijerina is a 27 y/o T1DM who presents with transaminitis. * BSGs yesterday were 40 (received amp of dextrose)-201-143-242 mg/dL. This AM patient was hypoglycemic at 61. Fasting BSG elevated at 220 mg/dl due to hypoglycemia treatment. Lunch BSG was 92 mg/dL. * Patient received 25 units of Lantus and 11 units of bolus insulin yesterday. * Will reduce Lantus to 20 units. This appears consistent with previous admissio ns. May require more but this can be given in AM. * Novolog as determined by previous admissions. PLAN FOR INPATIENT GLYCEMIC CONTROL: * Basal insulin * Lantus 25 units SQ HS * Bolus insulin * NovoLog per scale ACHS or Q6hrs while NPO * Goal Range: Low 110 mg/dL - High 140 mg/dL * Correction Factor: 35 mg/dL/unit * Nutritional / Prandial insulin per carb ratio of 1 unit per 10 grams CHO consumed
--- NOTE | 2022-07-24 18:11 | Hospitalist Progress Note ---
Date of Service July 24, 2022 Assessment & Plan (1) Transaminitis: Plan: 27-year-old man with type 1 diabetes, gastroparesis, and OUD in remission who presented with nausea and vomiting and admitted for management of acute transaminitis >1000s. Hepatocellular Transaminitis -Patient presented with n/v and R flank pain that has occurred intermittently over the last 6 months -Workup as follows: -No white count. CRP, ESR, procal pending. -AST predominant (1127 to 294), bilirubin 1.1, alk phos 159. Lipase wnl. -RUQ US demonstrating gallbladder distention with adenomyomatosis, no pericholecystic fluid. No biliary ductal dilation -CT-A/P: Mildly distended gallbladder. -Patient reports h/o OUD, unclear at this time if this included IVDU -LFTs have more of a hepatocellular pattern than cholestatic. His LFTs are profoundly elevated despite no e/o biliary ductal dilation or gross inflammatory changes of the gallbladder (but distention noted). Suspect that some of his R flank pain may have some role in the last 6mo, but difficult to say. Lower suspicion that his gallbladder is source of transaminitis as not really a cholestatic pattern. Larger suspicion for viral hepatitis; autoimmune also con sidered given T1DM, +FHx of thyroid disease. -Surgery and GI following -- no need for acute intervention, ok to stop ABX -Pain: Toradol -- Morphine discontinued 07/24 (he did receive 3 doses during hospitalization) -Trend transaminases, significant improvement today -- If worsen and/or hepatitis serologies return negative, could consider CMV/EBV/autoimmune hepatitis panel Type 1 Diabetes (A1c 7.4%) -Normally wears insulin pump at home. However, left at home as he wanted to change the site. -Glycemic consultation appreciated while here given NPO, ill state, likely fluctuating insulin requirements Nausea with Vomiting -Intermittent bouts of R flank pain intermixed with nausea and vomiting that are not prandially related x 6mo -Patient does have h/o gastroparesis, which is noted -Suspect somehow related to the transaminitis outlined above -- but not exactly clear. Lower suspicion this is MICHELLE given infrequent and low %THC content in his reported cannabis use -Patient with continued intermittent nausea but no vomiting since hospital admission -Continue to monitor -Symptomatic management for now as above -Will advance diet as tolerated Code: Full code Dispo: Med-Surg FEN/GI: Full DVT Prophylaxis: None PT/OT: No Consults: GI (2) Diabetes type 1, uncontrolled: (3) Hyperbilirubinemia: (4) Nausea & vomiting: Admission and Anticipated Discharge Date Admission Date: July 23, 2022 Supervising Physician Co-Signing Physician Notes 27-year-old male with past medical history pertinent for type 1 diabetes and chronic GI complaints with intractable emesis and elevation of transa minases.Patient advancing diet and tolerating. Transaminases improving. Patient continues to have back pain, encouraged him to get out of bed and ambulate as tolerated. Patient examined with resident, agree with documentation of history, physical exam, and plan as above. Subjective Patient seen and evaluated at bedside this morning. States that he overall is feeling better. Still with some pain, more so in the back this morning. Has tolerated clear liquid diet w/o nausea. No vomiting. When asked about cannabinoid use, patient reports vaping cannabis 3-4x/week. States that he uses his medical card and only buys cannabis from a medical dispensary; no concerns with the cannabis being laced with any other drugs. Review of Systems Review of Systems: as per HPI Physical Exam Physical Exam: GENERAL: No acute distress. Well developed and well nourished. Vital signs reviewed as above. EYES: EOMI. Anicteric sclerae. HENT: Moist mucous membranes. RESPIRATORY: Clear to auscultation bilaterally. No wheezing, rales, or rhonchi. CARDIOVASCULAR: Regular rate and rhythm. No murmurs. No JVD. ABDOMEN: Soft. Mild diffuse tenderness to palpation. Non-distended. Normal bowel sounds. EXTREMITIES: No edema. Non-tender. SKIN: Warm, dry. NEUROLOGIC: A/O x3. Normal speech. No focal neurological deficits. PSYCHIATRIC: Cooperative. Appropriate mood and affect. Results & Data Results & Data ([facility]) Vital Signs (Past 12 Hours) Vital Signs Temp Pulse Pulse Resp BP BP Pulse Ox 07/24/22 15:11 37.3 C 84 14 125/79 97 07/24/22 07:27 36.7 C 70 18 126/77 98 O2 Del Method 07/24/22 15:11 Room Air 07/24/22 07:27 Room Air Laboratory Results 07/24/22 07/24/22 07/24/22 Range/Units 17:09 12:36 08:19 WBC (4.8-10.8) K/ul RBC (4.70-6.10) M/uL Hgb (14.0-18.0) g/dl Hct (42.0-52.0) % MCV (80.0-100.0) fL MCH (25.0-34.0) pg MCHC (32.0-36.0) g/dL RDW Std Deviation (36.4-46.3) fL RDW Coeff of Carlos (11.5-14.5) % Plt Count (130-400) K/uL MPV (9.4-12.4) fL Immature Gran % (Auto) % Neut % (Auto) % Lymph % (Auto) % Gregg % (Auto) % Eos % (Auto) % Baso % (Auto) % Neut # (Auto) (1.40-6.50) K/uL Lymph # (Auto) (1.2-3.4) K/uL Gregg # (Auto) (0.11-0.59) K/uL Eos # (Auto) (0-0.50) K/uL Baso # (Auto) (0-0.2) K/uL Immature Gran # (Auto) (0.01-0.20) K/uL Sodium (136-145) mmol/L Potassium (3.5-5.1) mmol/L Chloride (98-107) mmol/L Carbon Dioxide (21-32) mmol/L Anion Gap (3-11) BUN (6-23) mg/dl Creatinine (0.6-1.4) mg/dl Est Cr Clr Drug Dosing ml/min Est GFR ( Amer) ml/min Est GFR (Non-Af Amer) ml/min BUN/Creatinine Ratio (10-20) Glucose (70-99(Fasting)) mg/dl POC Glucose 173 H 92 220 H (70-99) mg/dl Calcium (8.5-10.1) mg/dl Phosphorus (2.5-4.9) mg/dl Magnesium (1.7-2.4) mg/dl Total Bilirubin (0.2-1.0) mg/dl AST (13-39) U/L ALT (7-52) U/L Alkaline Phosphatase (34-104) U/L Total Protein (6.0-8.3) gm/dl Albumin (3.4-5.0) gm/dl Globulin (2.5-4.0) gm/dl Albumin/Globulin Ratio (0.9-2) 07/24/22 07/24/22 07/24/22 Range/Units 05:44 05:44 03:42 WBC 6.08 (4.8-10.8) K/ul RBC 3.75 L (4.70-6.10) M/uL Hgb 11.2 L (14.0-18.0) g/dl Hct 34.1 L (42.0-52.0) % MCV 90.9 (80.0-100.0) fL MCH 29.9 (25.0-34.0) pg MCHC 32.8 (32.0-36.0) g/dL RDW Std Deviation 42.5 (36.4-46.3) fL RDW Coeff of Carlos 12.7 (11.5-14.5) % Plt Count 223 (130-400) K/uL MPV 9.9 (9.4-12.4) fL Immature Gran % (Auto) 0.3 % Neut % (Auto) 54.1 % Lymph % (Auto) 33.4 % Gregg % (Auto) 7.9 % Eos % (Auto) 3.8 % Baso % (Auto) 0.5 % Neut # (Auto) 3.29 (1.40-6.50) K/uL Lymph # (Auto) 2.03 (1.2-3.4) K/uL Gregg # (Auto) 0.48 (0.11-0.59) K/uL Eos # (Auto) 0.23 (0-0.50) K/uL Baso # (Auto) 0.03 (0-0.2) K/uL Immature Gran # (Auto) 0.02 (0.01-0.20) K/uL Sodium 139 (136-145) mmol/L Potassium 4.1 D (3.5-5.1) mmol/L Chloride 105 (98-107) mmol/L Carbon Dioxide 30 (21-32) mmol/L Anion Gap 4 (3-11) BUN 8 (6-23) mg/dl Creatinine 0.80 (0.6-1.4) mg/dl Est Cr Clr Drug Dosing 158.3 ml/min Est GFR ( Amer) 142.9 ml/min Est GFR (Non-Af Amer) 123.3 ml/min BUN/Creatinine Ratio 10.0 (10-20) Glucose 197 H (70-99(Fasting)) mg/dl POC Glucose 140 H (70-99) mg/dl Calcium 8.3 L (8.5-10.1) mg/dl Phosphorus 3.8 (2.5-4.9) mg/dl Magnesium 1.7 (1.7-2.4) mg/dl Total Bilirubin 0.9 D (0.2-1.0) mg/dl AST 287 H (13-39) U/L ALT 460 H (7-52) U/L Alkaline Phosphatase 145 H (34-104) U/L Total Protein 5.5 L (6.0-8.3) gm/dl Albumin 3.4 (3.4-5.0) gm/dl Globulin 2.1 L (2.5-4.0) gm/dl Albumin/Globulin Ratio 1.6 (0.9-2) 07/24/22 07/24/22 07/24/22 Range/Units 02:44 02:32 02:19 WBC (4.8-10.8) K/ul RBC (4.70-6.10) M/uL Hgb (14.0-18.0) g/dl Hct (42.0-52.0) % MCV (80.0-100.0) fL MCH (25.0-34.0) pg MCHC (32.0-36.0) g/dL RDW Std Deviation (36.4-46.3) fL RDW Coeff of Carlos (11.5-14.5) % Plt Count (130-400) K/uL MPV (9.4-12.4) fL Immature Gran % (Auto) % Neut % (Auto) % Lymph % (Auto) % Gregg % (Auto) % Eos % (Auto) % Baso % (Auto) % Neut # (Auto) (1.40-6.50) K/uL Lymph # (Auto) (1.2-3.4) K/uL Gregg # (Auto) (0.11-0.59) K/uL Eos # (Auto) (0-0.50) K/uL Baso # (Auto) (0-0.2) K/uL Immature Gran # (Auto) (0.01-0.20) K/uL Sodium (136-145) mmol/L Potassium (3.5-5.1) mmol/L Chloride (98-107) mmol/L Carbon Dioxide (21-32) mmol/L Anion Gap (3-11) BUN (6-23) mg/dl Creatinine (0.6-1.4) mg/dl Est Cr Clr Drug Dosing ml/min Est GFR ( Amer) ml/min Est GFR (Non-Af Amer) ml/min BUN/Creatinine Ratio (10-20) Glucose (70-99(Fasting)) mg/dl POC Glucose 81 64 L* 61 L* (70-99) mg/dl Calcium (8.5-10.1) mg/dl Phosphorus (2.5-4.9) mg/dl Magnesium (1.7-2.4) mg/dl Total Bilirubin (0.2-1.0) mg/dl AST (13-39) U/L ALT (7-52) U/L Alkaline Phosphatase (34-104) U/L Total Protein (6.0-8.3) gm/dl Albumin (3.4-5.0) gm/dl Globulin (2.5-4.0) gm/dl Albumin/Globulin Ratio (0.9-2) 07/24/22 07/23/22 Range/Units 02:18 20:41 WBC (4.8-10.8) K/ul RBC (4.70-6.10) M/uL Hgb (14.0-18.0) g/dl Hct (42.0-52.0) % MCV (80.0-100.0) fL MCH (25.0-34.0) pg MCHC (32.0-36.0) g/dL RDW Std Deviation (36.4-46.3) fL RDW Coeff of Carlos (11.5-14.5) % Plt Count (130-400) K/uL MPV (9.4-12.4) fL Immature Gran % (Auto) % Neut % (Auto) % Lymph % (Auto) % Gregg % (Auto) % Eos % (Auto) % Baso % (Auto) % Neut # (Auto) (1.40-6.50) K/uL Lymph # (Auto) (1.2-3.4) K/uL Gregg # (Auto) (0.11-0.59) K/uL Eos # (Auto) (0-0.50) K/uL Baso # (Auto) (0-0.2) K/uL Immature Gran # (Auto) (0.01-0.20) K/uL Sodium (136-145) mmol/L Potassium (3.5-5.1) mmol/L Chloride (98-107) mmol/L Carbon Dioxide (21-32) mmol/L Anion Gap (3-11) BUN (6-23) mg/dl Creatinine (0.6-1.4) mg/dl Est Cr Clr Drug Dosing ml/min Est GFR ( Amer) ml/min Est GFR (Non-Af Amer) ml/min BUN/Creatinine Ratio (10-20) Glucose (70-99(Fasting)) mg/dl POC Glucose 56 L* 242 H (70-99) mg/dl Calcium (8.5-10.1) mg/dl Phosphorus (2.5-4.9) mg/dl Magnesium (1.7-2.4) mg/dl Total Bilirubin (0.2-1.0) mg/dl AST (13-39) U/L ALT (7-52) U/L Alkaline Phosphatase (34-104) U/L Total Protein (6.0-8.3) gm/dl Albumin (3.4-5.0) gm/dl Globulin (2.5-4.0) gm/dl Albumin/Globulin Ratio (0.9-2) Resident Activity Tracking Resident Involvement: Resident Care Provided Care Provided: Adult Hospital Medicine (1) Diabetes type 1, uncontrolled Glycemic state: with hyperglycemia Qualified Code(s): E10.65 - Type 1 diabetes mellitus with hyperglycemia
[2022-07-24] MEDS ORDERED: LANTUS PER UNIT CHARGE SQ SCH (21:00)
[2022-07-24] MEDS: MELATONIN 3 MG TAB PO SCH (21:51)
[2022-07-25] MEDS: KETOROLAC TROMETHAMINE 15 MG/ML VIAL IV PRN ×2 (04:38→12:08)
[2022-07-25 07:22] LABS: Basophils # (auto) 0.04 K/uL (0-0.2); Basophils % (auto) 0.6 %; Eosinophils # (auto) 0.25 K/uL (0-0.50); Eosinophils % (auto) 3.6 %; Hematocrit (blood only) 38.1 % (42.0-52.0); Hemoglobin 12.5 g/dl (14.0-18.0); Immature Granulocytes # (auto) 0.03 K/uL (0.01-0.20); Immature Granulocytes % (auto) 0.4 %; Lymphocytes # (auto) 1.77 K/uL (1.2-3.4); Lymphocytes % (auto) 25.8 %; Mean Corpuscular Hemoglobin 29.8 pg (25.0-34.0); Mean Corpuscular Hgb Conc 32.8 g/dL (32.0-36.0); Mean Corpuscular Volume 90.9 fL (80.0-100.0); Mean Platelet Volume 9.9 fL (9.4-12.4); Monocytes # (auto) 0.67 K/uL (0.11-0.59); Monocytes % (auto) 9.8 %; Neutrophils # (auto) 4.09 K/uL (1.40-6.50); Neutrophils % (auto) 59.8 %; Platelet Count 273 K/uL (130-400); RDW Coefficient of Variation 12.7 % (11.5-14.5); RDW Standard Deviation 41.9 fL (36.4-46.3); Red Blood Count 4.19 M/uL (4.70-6.10); White Blood Count 6.85 K/ul (4.8-10.8)
[2022-07-25 08:19] LABS: Albumin Globulin Ratio 1.5 (0.9-2); Albumin Level 3.8 gm/dl (3.4-5.0); BUN Creatinine Ratio 6.3 (10-20); Bilirubin,Total 2.6 mg/dl (0.2-1.0); Creatinine Clr Calc Pharmacy 160.3 ml/min; Est GFR (African American) 143.6 ml/min; Est GFR (Non-African American) 123.9 ml/min; Globulin 2.5 gm/dl (2.5-4.0); Magnesium 1.8 mg/dl (1.7-2.4); Phosphorus 3.7 mg/dl (2.5-4.9); Potassium 3.3 mmol/L (3.5-5.1); Total Protein 6.3 gm/dl (6.0-8.3)
[2022-07-25] MEDS: INSULIN ASPART PER UNIT SC SCH ×4 (09:03→21:08)
--- NOTE | 2022-07-25 09:51 | Hospitalist Progress Note ---
Date of Service July 25, 2022 Assessment & Plan (1) Transaminitis: Plan: 27-year-old man with type 1 diabetes, gastroparesis, and OUD in remission who presented with nausea and vomiting and admitted for management of acute transaminitis >1000s. Hepatocellular Transaminitis -Patient presented with n/v and R flank pain that has occurred intermittently over the last 6 months -Workup as follows: -No white count. CRP, ESR, procal pending. -AST predominant (1127 to 294), bilirubin 1.1, alk phos 159. Lipase wnl. -RUQ US demonstrating gallbladder distention with adenomyomatosis, no pericholecystic fluid. No biliary ductal dilation -CT-A/P: Mildly distended gallbladder. -Patient reports h/o OUD, unclear at this time if this included IVDU - On admission, LFTs have more of a hepatocellular pattern than cholestatic. His LFTs were profoundly elevated despite no e/o biliary ductal dilation or gross inflammatory changes of the gallbladder (but distention noted). Suspect that some of his R flank pain may have some role in the last 6mo, but difficult to say. Lower suspicion that his gallbladder is source of transaminitis as not really a cholestatic pattern. Larger suspicion for viral hepatitis; autoimmune also considered given T1DM, +FHx of thyroid disease. - Today, patient with worsening back pain, abdominal pain, and LFTs. Repeat RUQ US performed w/ evidence of cholelithiasis and trace pericholecystic fluid w/ significant gallbladder distention, increased since prior US (2 days ago). Await further surgical evaluation tomorrow morning. Repeat CBC in AM. Can consider nuclear medicine hepatobiliary scan as well. -- Suspect that some of the back pain is viscerosomatic from gallbladder dysfunction. - Viral hepatitis panel pending -Surgery and GI following -- no need for acute intervention, ok to stop ABX -Pain: Toradol and Morphine 2mg q4h prn -- Patient with hx of OUD in remission; discussed concerns for analgesia w/ morphine however patient comfortable for acute pain; continue use with caution -Trend transaminases, improved from admission but slightly worsened today compared to yesterday; also, to note, transaminitis has changed from AST > ALT on admission to now with ALT > AST -- Consider CMV/EBV/ANKUR/antiSMA/autoimmune hepatitis panel - Mom notes personal hx of abdominal migraines; well controlled and treated prn with rizatriptan. If all other workup is negative, could consider ? abdominal migraine for patient Type 1 Diabetes (A1c 7.4%) -Normally wears insulin pump at home. However, left at home as he wanted to change the site. -Glycemic consultation appreciated while here given NPO (on admission), ill state, likely fluctuating insulin requirements Nausea with Vomiting -Intermittent bouts of R flank pain intermixed with nausea and vomiting that are not prandially related x 6mo -Patient does have h/o gastroparesis, which is noted -Suspect somehow related to the transaminitis outlined above -- but not exactly clear. Lower suspicion this is MICHELLE given infrequent and low %THC content in his reported cannabis use -Patient with continued intermittent nausea but no vomiting since hospital admission -Continue to monitor -Symptomatic management for now as above Code: Full code Dispo: Med-Surg FEN/GI: NPO at midnight pending surgical evaluation; IVF with NSS started at 125 cc/hr x 2L DVT Prophylaxis: Frequent ambulation PT/OT: No Consults: GI, general surgery (2) Diabetes type 1, uncontrolled: (3) Hyperbilirubinemia: (4) Nausea & vomiting: Admission and Anticipated Discharge Date Admission Date: July 23, 2022 Supervising Physician Co-Signing Physician Notes 27-year-old male with past medical history pertinent for type 1 diabetes and chronic GI dysfunction with intractable emesis and elevation of transaminases.Given ultrasound findings of increased gallbladder distension, fluids restarted, will place on PPO. Discussed at length pain control, start morphine prn, patient acknowledges history of OUD and will maintain caution, discussed consideration of MAT following hospitalization. Monitor transaminase and alkaline phosphatase levels closely. Patient examined with resident, agree with documentation of history, physical exam, and plan as above. Subjective Patient seen and evaluated at bedside this morning. No acute events overnight. Overall feeling fair but reports that pain is still present. Has tolerated some bland full diet po intake w/o nausea or vomiting. Afternoon update: patient with worsening abdominal pain and right low back pain. He reports loss of appetite secondary to pain. Also w/ worsening nausea that is not controlled with Zofran. Review of Systems Review of Systems: as per HPI Physical Exam Physical Exam: GENERAL: No acute distress. Well developed and well nourished. Vital signs reviewed as above. EYES: EOMI. Anicteric sclerae. HENT: Moist mucous membranes. RESPIRATORY: Clear to auscultation bilaterally. No wheezing, rales, or rhonchi. CARDIOVASCULAR: Regular rate and rhythm. No murmurs. No JVD. ABDOMEN: Soft. Mild diffuse tenderness to palpation, worse in RUQ. Non- distended. Normal bowel sounds. EXTREMITIES: No edema. Non-tender. SKIN: Warm, dry. NEUROLOGIC: A/O x3. Normal speech. No focal neurological deficits. PSYCHIATRIC: Cooperative. Appropriate mood and affect. Results & Data Results & Data ([facility]) Vital Signs (Past 12 Hours) Vital Signs Temp Pulse Resp BP Pulse Ox O2 Del Method 07/25/22 07:30 36.8 C 71 18 112/77 97 Room Air Laboratory Results 07/25/22 07/25/22 07/25/22 Range/Units 17:24 14:49 12:11 WBC (4.8-10.8) K/ul RBC (4.70-6.10) M/uL Hgb (14.0-18.0) g/dl Hct (42.0-52.0) % MCV (80.0-100.0) fL MCH (25.0-34.0) pg MCHC (32.0-36.0) g/dL RDW Std Deviation (36.4-46.3) fL RDW Coeff of Carlos (11.5-14.5) % Plt Count (130-400) K/uL MPV (9.4-12.4) fL Immature Gran % (Auto) % Neut % (Auto) % Lymph % (Auto) % Barber % (Auto) % Eos % (Auto) % Baso % (Auto) % Neut # (Auto) (1.40-6.50) K/uL Lymph # (Auto) (1.2-3.4) K/uL Barber # (Auto) (0.11-0.59) K/uL Eos # (Auto) (0-0.50) K/uL Baso # (Auto) (0-0.2) K/uL Immature Gran # (Auto) (0.01-0.20) K/uL Sodium 139 (136-145) mmol/L Potassium 3.9 (3.5-5.1) mmol/L Chloride 103 (98-107) mmol/L Carbon Dioxide 29 (21-32) mmol/L Anion Gap 7 (3-11) BUN 4 L (6-23) mg/dl Creatinine 0.74 (0.6-1.4) mg/dl Est Cr Clr Drug Dosing 171.2 ml/min Est GFR ( Amer) 147.5 ml/min Est GFR (Non-Af Amer) 127.3 ml/min BUN/Creatinine Ratio 5.4 L (10-20) Glucose 140 H (70-99(Fasting)) mg/dl POC Glucose 128 H 109 H (70-99) mg/dl Calcium 8.7 (8.5-10.1) mg/dl Phosphorus (2.5-4.9) mg/dl Magnesium (1.7-2.4) mg/dl Total Bilirubin 3.0 H (0.2-1.0) mg/dl AST 472 H (13-39) U/L ALT 541 H (7-52) U/L Alkaline Phosphatase 234 H (34-104) U/L Total Protein 6.4 (6.0-8.3) gm/dl Albumin 4.0 (3.4-5.0) gm/dl Globulin 2.4 L (2.5-4.0) gm/dl Albumin/Globulin Ratio 1.7 (0.9-2) 07/25/22 07/25/22 07/25/22 Range/Units 08:01 06:49 06:49 WBC 6.85 (4.8-10.8) K/ul RBC 4.19 L (4.70-6.10) M/uL Hgb 12.5 L (14.0-18.0) g/dl Hct 38.1 L (42.0-52.0) % MCV 90.9 (80.0-100.0) fL MCH 29.8 (25.0-34.0) pg MCHC 32.8 (32.0-36.0) g/dL RDW Std Deviation 41.9 (36.4-46.3) fL RDW Coeff of Carlos 12.7 (11.5-14.5) % Plt Count 273 (130-400) K/uL MPV 9.9 (9.4-12.4) fL Immature Gran % (Auto) 0.4 % Neut % (Auto) 59.8 % Lymph % (Auto) 25.8 % Barber % (Auto) 9.8 % Eos % (Auto) 3.6 % Baso % (Auto) 0.6 % Neut # (Auto) 4.09 (1.40-6.50) K/uL Lymph # (Auto) 1.77 (1.2-3.4) K/uL Barber # (Auto) 0.67 H (0.11-0.59) K/uL Eos # (Auto) 0.25 (0-0.50) K/uL Baso # (Auto) 0.04 (0-0.2) K/uL Immature Gran # (Auto) 0.03 (0.01-0.20) K/uL Sodium 141 (136-145) mmol/L Potassium 3.3 L (3.5-5.1) mmol/L Chloride 105 (98-107) mmol/L Carbon Dioxide 30 (21-32) mmol/L Anion Gap 6 (3-11) BUN 5 L (6-23) mg/dl Creatinine 0.79 (0.6-1.4) mg/dl Est Cr Clr Drug Dosing 160.3 ml/min Est GFR ( Amer) 143.6 ml/min Est GFR (Non-Af Amer) 123.9 ml/min BUN/Creatinine Ratio 6.3 L (10-20) Glucose 121 H (70-99(Fasting)) mg/dl POC Glucose 101 H (70-99) mg/dl Calcium 9.0 (8.5-10.1) mg/dl Phosphorus 3.7 (2.5-4.9) mg/dl Magnesium 1.8 (1.7-2.4) mg/dl Total Bilirubin 2.6 H D (0.2-1.0) mg/dl AST 380 H (13-39) U/L ALT 472 H (7-52) U/L Alkaline Phosphatase 203 H (34-104) U/L Total Protein 6.3 (6.0-8.3) gm/dl Albumin 3.8 (3.4-5.0) gm/dl Globulin 2.5 (2.5-4.0) gm/dl Albumin/Globulin Ratio 1.5 (0.9-2) 07/24/22 Range/Units 21:00 WBC (4.8-10.8) K/ul RBC (4.70-6.10) M/uL Hgb (14.0-18.0) g/dl Hct (42.0-52.0) % MCV (80.0-100.0) fL MCH (25.0-34.0) pg MCHC (32.0-36.0) g/dL RDW Std Deviation (36.4-46.3) fL RDW Coeff of Carlos (11.5-14.5) % Plt Count (130-400) K/uL MPV (9.4-12.4) fL Immature Gran % (Auto) % Neut % (Auto) % Lymph % (Auto) % Barber % (Auto) % Eos % (Auto) % Baso % (Auto) % Neut # (Auto) (1.40-6.50) K/uL Lymph # (Auto) (1.2-3.4) K/uL Barber # (Auto) (0.11-0.59) K/uL Eos # (Auto) (0-0.50) K/uL Baso # (Auto) (0-0.2) K/uL Immature Gran # (Auto) (0.01-0.20) K/uL Sodium (136-145) mmol/L Potassium (3.5-5.1) mmol/L Chloride (98-107) mmol/L Carbon Dioxide (21-32) mmol/L Anion Gap (3-11) BUN (6-23) mg/dl Creatinine (0.6-1.4) mg/dl Est Cr Clr Drug Dosing ml/min Est GFR ( Amer) ml/min Est GFR (Non-Af Amer) ml/min BUN/Creatinine Ratio (10-20) Glucose (70-99(Fasting)) mg/dl POC Glucose 157 H (70-99) mg/dl Calcium (8.5-10.1) mg/dl Phosphorus (2.5-4.9) mg/dl Magnesium (1.7-2.4) mg/dl Total Bilirubin (0.2-1.0) mg/dl AST (13-39) U/L ALT (7-52) U/L Alkaline Phosphatase (34-104) U/L Total Protein (6.0-8.3) gm/dl Albumin (3.4-5.0) gm/dl Globulin (2.5-4.0) gm/dl Albumin/Globulin Ratio (0.9-2) Diagnostic Findings [place], [place] [phone] Ultrasound Report Patient:ANISH SINGH Admit Date:07/23/22 MR#:[id number] Address1:[address] Acct ID:[id number] Address2: Date:[address] [facility] Zip:[place] [address] Age:27 Location:3W Sex:M Room/Bed:[facility] Att Phy:Kristi Blackburn DO Diagnosis:VOMITING Kenyatta Phy:PCP,NO Service Date:07/25/22 Fam Phy: Interpreting Phy:Bladimir Carrero MDAdmit Phy:Carmen Walter MD Ordering Phy:Milagro Dewey DO cc: ~ US liver CLINICAL HISTORY: Right upper quadrant abdominal pain. COMPARISON STUDY: CT of the abdomen and pelvis July 22, 2022 and right upper quadrant ultrasound July 23, 2022. FINDINGS: The liver is mildly enlarged. No hepatic lesions are identified. There has been interval development of mild biliary ductal dilatation. The common bile duct measures 8 mm in caliber. No common bile duct calculi are identified although these may be occult by sonography. Pancreas is within normal limits by sonography. Gallbladder distention has increased increased since prior exam. There are numerous gallstones within the gallbladder. Sludge within the gallbladder is noted. There are suspected adenomyomatosis of the gallbladder wall. Sonographic Lima sign could not be assessed for given pain medication administration. No gallbladder wall thickening. There is trace pericholecystic fluid. Is no right hydronephrosis. IMPRESSION: 1. Cholelithiasis and trace pericholecystic fluid with significant gallbladder distention, increased since prior ultrasound. Acute cholecystitis cannot be excluded. A nuclear medicine hepatobiliary scan could be obtained for further ev aluation. 2. Interval development of mild biliary ductal dilatation which could be correlated with obstructive liver function tests. ACT 112: Negative or not required by law. Electronically signed by: Bladimir Carrero M.D. 07/25/2022 5:38 PM Dictated:07/25/22 173 Transcribed: 07/25/221731 Resident Activity Tracking Resident Involvement: Resident Care Provided Care Provided: Adult Hospital Medicine (1) Diabetes type 1, uncontrolled Glycemic state: with hyperglycemia Qualified Code(s): E10.65 - Type 1 diabetes mellitus with hyperglycemia
[2022-07-25] MEDS ORDERED: CYCLOBENZAPRINE HCL 10 MG TAB PO STA (11:09)
[2022-07-25] MEDS ORDERED: SODIUM CHLORIDE 0.9% 1000ML 1,000 ML IV ONE (11:09)
[2022-07-25] MEDS ORDERED: POTASSIUM CHLORIDE CRTAB 20 MEQ TABCR PO STA (11:41)
--- NOTE | 2022-07-25 11:54 | Surgery Progress Note ---
Date of Service July 25, 2022 Assessment & Plan (1) Nausea & vomiting: Plan: Could be multifactorial given gastroparesis, diabetes, cannabis use, gallstones. (2) Transaminitis: Plan: Improving. Viral hepatitis panel pending. GI thinks it is more likely related to gallbladder disease. (3) Cholelithiasis: Plan: Primary service will discuss lap cholecystectomy with him once lft's are better, hepatitis panel results in. No new recommendations. Admission and Anticipated Discharge Date Admission Date: July 23, 2022 Subjective Lying in bed. Family at bedside. Complaining of back pain but no abdominal pain this am. Tolerating diet. No vomiting. Physical Exam Constitutional: WD/WN, vitals as above Respiratory: normal respiratory effort, lungs clear to auscultation Cardiovascular: RRR, no murmur, no edema Gastrointestinal (Abdomen): normal bowel sounds, soft, nontender, no hepatosplenomegaly Neurologic: awake; no focal motor deficits Results & Data ([facility]) Vital Signs (Past 12 Hours) Vital Signs Temp Pulse Resp BP Pulse Ox O2 Del Method 07/25/22 07:30 36.8 C 71 18 112/77 97 Room Air Laboratory Results 07/25/22 07/25/22 07/25/22 Range/Units 08:01 06:49 06:49 WBC 6.85 (4.8-10.8) K/ul RBC 4.19 L (4.70-6.10) M/uL Hgb 12.5 L (14.0-18.0) g/dl Hct 38.1 L (42.0-52.0) % MCV 90.9 (80.0-100.0) fL MCH 29.8 (25.0-34.0) pg MCHC 32.8 (32.0-36.0) g/dL RDW Std Deviation 41.9 (36.4-46.3) fL RDW Coeff of Carlos 12.7 (11.5-14.5) % Plt Count 273 (130-400) K/uL MPV 9.9 (9.4-12.4) fL Immature Gran % (Auto) 0.4 % Neut % (Auto) 59.8 % Lymph % (Auto) 25.8 % Gooding % (Auto) 9.8 % Eos % (Auto) 3.6 % Baso % (Auto) 0.6 % Neut # (Auto) 4.09 (1.40-6.50) K/uL Lymph # (Auto) 1.77 (1.2-3.4) K/uL Gooding # (Auto) 0.67 H (0.11-0.59) K/uL Eos # (Auto) 0.25 (0-0.50) K/uL Baso # (Auto) 0.04 (0-0.2) K/uL Immature Gran # (Auto) 0.03 (0.01-0.20) K/uL Sodium 141 (136-145) mmol/L Potassium 3.3 L (3.5-5.1) mmol/L Chloride 105 (98-107) mmol/L Carbon Dioxide 30 (21-32) mmol/L Anion Gap 6 (3-11) BUN 5 L (6-23) mg/dl Creatinine 0.79 (0.6-1.4) mg/dl Est Cr Clr Drug Dosing 160.3 ml/min Est GFR ( Amer) 143.6 ml/min Est GFR (Non-Af Amer) 123.9 ml/min BUN/Creatinine Ratio 6.3 L (10-20) Glucose 121 H (70-99(Fasting)) mg/dl POC Glucose 101 H (70-99) mg/dl Calcium 9.0 (8.5-10.1) mg/dl Phosphorus 3.7 (2.5-4.9) mg/dl Magnesium 1.8 (1.7-2.4) mg/dl Total Bilirubin 2.6 H D (0.2-1.0) mg/dl AST 380 H (13-39) U/L ALT 472 H (7-52) U/L Alkaline Phosphatase 203 H (34-104) U/L Total Protein 6.3 (6.0-8.3) gm/dl Albumin 3.8 (3.4-5.0) gm/dl Globulin 2.5 (2.5-4.0) gm/dl Albumin/Globulin Ratio 1.5 (0.9-2) 07/24/22 07/24/22 07/24/22 Range/Units 21:00 17:09 12:36 WBC (4.8-10.8) K/ul RBC (4.70-6.10) M/uL Hgb (14.0-18.0) g/dl Hct (42.0-52.0) % MCV (80.0-100.0) fL MCH (25.0-34.0) pg MCHC (32.0-36.0) g/dL RDW Std Deviation (36.4-46.3) fL RDW Coeff of Carlos (11.5-14.5) % Plt Count (130-400) K/uL MPV (9.4-12.4) fL Immature Gran % (Auto) % Neut % (Auto) % Lymph % (Auto) % Gooding % (Auto) % Eos % (Auto) % Baso % (Auto) % Neut # (Auto) (1.40-6.50) K/uL Lymph # (Auto) (1.2-3.4) K/uL Gooding # (Auto) (0.11-0.59) K/uL Eos # (Auto) (0-0.50) K/uL Baso # (Auto) (0-0.2) K/uL Immature Gran # (Auto) (0.01-0.20) K/uL Sodium (136-145) mmol/L Potassium (3.5-5.1) mmol/L Chloride (98-107) mmol/L Carbon Dioxide (21-32) mmol/L Anion Gap (3-11) BUN (6-23) mg/dl Creatinine (0.6-1.4) mg/dl Est Cr Clr Drug Dosing ml/min Est GFR ( Amer) ml/min Est GFR (Non-Af Amer) ml/min BUN/Creatinine Ratio (10-20) Glucose (70-99(Fasting)) mg/dl POC Glucose 157 H 173 H 92 (70-99) mg/dl Calcium (8.5-10.1) mg/dl Phosphorus (2.5-4.9) mg/dl Magnesium (1.7-2.4) mg/dl Total Bilirubin (0.2-1.0) mg/dl AST (13-39) U/L ALT (7-52) U/L Alkaline Phosphatase (34-104) U/L Total Protein (6.0-8.3) gm/dl Albumin (3.4-5.0) gm/dl Globulin (2.5-4.0) gm/dl Albumin/Globulin Ratio (0.9-2)
[2022-07-25] MEDS: ONDANSETRON INJ 2 MG/ML 2 ML VIAL IV PRN (12:57)
[2022-07-25] MEDS: LIDOCAINE 5% 1 PATCH TD SCH (14:36)
[2022-07-25] MEDS ORDERED: PROCHLORPERAZINE 5 MG in SYRINGE 4 ML IV ONE (15:00)
[2022-07-25 15:28] LABS: Albumin Globulin Ratio 1.7 (0.9-2); BUN Creatinine Ratio 5.4 (10-20); Calcium 8.7 mg/dl (8.5-10.1); Creatinine Clr Calc Pharmacy 171.2 ml/min; Est GFR (African American) 147.5 ml/min; Est GFR (Non-African American) 127.3 ml/min; Globulin 2.4 gm/dl (2.5-4.0); Potassium 3.9 mmol/L (3.5-5.1); Total Protein 6.4 gm/dl (6.0-8.3)
--- NOTE | 2022-07-25 17:40 | Ultrasound Report ---
US liver CLINICAL HISTORY: Right upper quadrant abdominal pain. COMPARISON STUDY: CT of the abdomen and pelvis July 22, 2022 and right upper quadrant ultrasound July 23, 2022. FINDINGS: The liver is mildly enlarged. No hepatic lesions are identified. There has been interval de velopment of mild biliary ductal dilatation. The common bile duct measures 8 mm in caliber. No common bile duct calculi are identified although these may be occult by sonography. Pancreas is within norm al limits by sonography. Gallbladder distention has increased increased since prior exam. There are n umerous gallstones within the gallbladder. Sludge within the gallbladder is noted. There are suspecte d adenomyomatosis of the gallbladder wall. Sonographic Lima sign could not be assessed for given pa in medication administration. No gallbladder wall thickening. There is trace pericholecystic fluid. I s no right hydronephrosis. IMPRESSION: 1. Cholelithiasis and trace pericholecystic fluid with significant gallbladder distention, increased since prior ultrasound. Acute cholecystitis cannot be excluded. A nuclear medicine hepatobiliary sca n could be obtained for further evaluation. 2. Interval development of mild biliary ductal dilatation which could be correlated with obstructive liver function tests. ACT 112: Negative or not required by law. Electronically signed by: Bladimir Carrero M.D. 07/25/2022 5:38 PM
[2022-07-25] MEDS: SODIUM CHLORIDE 0.9% 1000ML 1,000 ML IV SCH (18:35)
[2022-07-25] MEDS: MoRPHine SULFATE 2 MG/ML CARP IV PRN (19:56)
[2022-07-25] MEDS: LANTUS PER UNIT CHARGE SQ SCH (21:08)
[2022-07-25] MEDS: MELATONIN 3 MG TAB PO SCH (21:09)
[2022-07-26] MEDS: SODIUM CHLORIDE 0.9% 1000ML 1,000 ML IV SCH ×3 (02:35→17:01)
[2022-07-26] MEDS: MoRPHine SULFATE 2 MG/ML CARP IV PRN ×4 (02:53→21:25)
[2022-07-26] MEDS ORDERED: INSULIN ASPART PER UNIT SC ONE (07:45)
[2022-07-26 07:56] LABS: Basophils # (auto) 0.04 K/uL (0-0.2); Basophils % (auto) 0.8 %; Eosinophils # (auto) 0.19 K/uL (0-0.50); Eosinophils % (auto) 3.9 %; Hematocrit (blood only) 34.5 % (42.0-52.0); Hemoglobin 11.5 g/dl (14.0-18.0); Immature Granulocytes # (auto) 0.01 K/uL (0.01-0.20); Immature Granulocytes % (auto) 0.2 %; Lymphocytes # (auto) 1.93 K/uL (1.2-3.4); Mean Corpuscular Hemoglobin 29.9 pg (25.0-34.0); Mean Corpuscular Hgb Conc 33.3 g/dL (32.0-36.0); Mean Corpuscular Volume 89.6 fL (80.0-100.0); Monocytes # (auto) 0.45 K/uL (0.11-0.59); Monocytes % (auto) 9.3 %; Neutrophils % (auto) 45.8 %; Platelet Count 234 K/uL (130-400); RDW Coefficient of Variation 12.6 % (11.5-14.5); RDW Standard Deviation 41.6 fL (36.4-46.3); Red Blood Count 3.85 M/uL (4.70-6.10); White Blood Count 4.82 K/ul (4.8-10.8)
--- NOTE | 2022-07-26 08:11 | Surgery Progress Note ---
Date of Service July 26, 2022 Assessment & Plan (1) Transaminitis: Plan: Repeat ultrasound yesterday was equivocal for potential cholecystitis. Also his LFTs went up again yesterday this morning's are pending. I am going to order a HIDA scan to rule out acute cholecystitis. Again would defer or reconsult gastroenterology regarding increasing LFTs. I do not believe this is solely from his gallbladder. ? MRCP versus ERCP. If this morning's LFTs continue to rise I will order an MRCP as well today (2) Cholelithiasis: (3) Diabetes type 1, uncontrolled: (4) Hyperbilirubinemia: Admission and Anticipated Discharge Date Admission Date: July 23, 2022 Subjective Patient seen. Continues to primarily complain of back pain. Really not having abdominal pain or nausea at this point in time. Physical Exam Constitutional: WD/WN, vitals as above no acute distress and not ill appearing Eyes: PERRL, conjunctivae normal, anicteric sclerae EOM intact bilaterally ENMT: external ear and nose normal, oropharynx normal Ears: no hearing impairment Neck: trachea midline, no thyromegaly Respiratory: normal respiratory effort; no respiratory distress and does not use accessory muscles Cardiovascular: Rate/Rhythm: regular rate and regular rhythm Gastrointestinal (Abdomen): Soft. Mild epigastric tenderness to deep palpation. No guarding or rebound. Skin: no rashes, warm and dry Psychiatric: Orientation: alert, oriented x 3 and cooperative Results & Data ([facility]) Vital Signs (Past 12 Hours) Vital Signs Temp Pulse Resp BP Pulse Ox O2 Del Method 07/26/22 07:44 36.5 C 72 18 121/82 97 Room Air 07/25/22 22:26 36.8 C 72 18 120/80 98 Room Air PG Care Time/CCT Total # of Minutes Spent Total Time Spent with Patient: Total time spent is greater than 50% in coordination of care (as documented) at patient's floor/unit and/or counseling patient: Coding Level of Care Code 21522 SUB INP/OBS CARE 2/35MIN Diagnoses Transaminitis R74.01 Cholelithiasis K80.20 Diabetes type 1, uncontrolled E10.65 Glycemic state: with hyperglycemia Hyperbilirubinemia E80.6 (1) Diabetes type 1, uncontrolled Glycemic state: with hyperglycemia Qualified Code(s): E10.65 - Type 1 diabetes mellitus with hyperglycemia
[2022-07-26 08:21] LABS: Albumin Level 3.3 gm/dl (3.4-5.0); Anion Gap 4 (3-11); Bilirubin Direct 2.4 mg/dl (0-0.2); Bilirubin,Total 3.3 mg/dl (0.2-1.0); Calcium 8.5 mg/dl (8.5-10.1); Carbon Dioxide 27 mmol/L (21-32); Chloride 110 mmol/L (98-107); Magnesium 1.7 mg/dl (1.7-2.4); Potassium 3.7 mmol/L (3.5-5.1); Sodium 141 mmol/L (136-145)
[2022-07-26 08:27] LABS: Alanine Aminotransferase 438 U/L (7-52); Albumin Globulin Ratio 1.5 (0.9-2); Alkaline Phosphatase 233 U/L (34-104); Aspartate Aminotransferase 294 U/L (13-39); BUN Creatinine Ratio 4.3 (10-20); Blood Urea Nitrogen 3 mg/dl (6-23); Creatine Kinase 36 U/L (30-223); Creatinine Clr Calc Pharmacy 183.6 ml/min; Est GFR (African American) > 150.0 ml/min; Globulin 2.2 gm/dl (2.5-4.0); Glucose 183 mg/dl (70-99(Fasting)); Phosphorus 3.6 mg/dl (2.5-4.9); Total Protein 5.5 gm/dl (6.0-8.3)
[2022-07-26] MEDS: LIDOCAINE 5% 1 PATCH TD SCH (08:50)
--- NOTE | 2022-07-26 10:41 | Pharmacy Report ---
Pharmacy Glycemic Short Note 2 - Date of Service July 26, 2022 - Glycemic Short BSG Results (Last 24 hours): 07/25/22 07/25/22 07/25/22 12:11 14:49 17:24 Glucose 140 H POC Glucose 109 H 128 H 07/25/22 07/26/22 07/26/22 20:32 07:25 08:11 Glucose 183 H POC Glucose 197 H 179 H OUTPATIENT ANTIDIABETIC REGIMEN: * Insulin pump - up to 60 units/day ASSESSMENT: * Mr Tijerina is a 27 y/o T1DM who presents with transaminitis. * Patient's diet status is currently T1DM and will change to NPO after midnight in anticipation of surgery tomorrow. * Patient received 19 units of Lantus and 4 units of bolus insulin yesterday. * Patient experienced low BSGs on 07/23/22 (46 & 49 mg/dL) and on 07/24/22 (56 & 61 mg/dL). PLAN FOR INPATIENT GLYCEMIC CONTROL: * Basal insulin * Lantus 19 units at HS tonight * Bolus insulin * NovoLog per scale ACHS or Q6hrs while NPO * Goal Range: Low 110 mg/dL - High 140 mg/dL * Correction Factor: 30 mg/dL/unit * Nutritional / Prandial insulin per carb ratio of 1 unit per 10 grams CHO consumed
[2022-07-26] MEDS ORDERED: INSULIN ASPART PER UNIT SC SCH (12:00)
--- NOTE | 2022-07-26 13:41 | Magnetic Resonance Report ---
MR MRCP HISTORY: Right upper quadrant pain. elevated LFT's/gallstones TECHNIQUE: MRCP of the abdomen was performed without contrast according to standard departmental prot ocol. COMPARISON STUDY: Liver ultrasound 07/25/2022. Abdomen and pelvis CT 07/22/2022. FINDINGS: The lung bases are clear. There is mild intra and extra hepatic bile duct dilatation with t he common bile duct measuring up to 8 mm. This is likely secondary to a 4 mm stone at the distal comm on bile duct. This is best seen on coronal series 3 image 11. Trace perihepatic and pericholecystic f luid. The gallbladder is distended and is filled with multiple small stones. No significant gallbladd er wall thickening. The main pancreatic duct is normal in course and caliber. No hepatic or splenic m asses. No retroperitoneal lymphadenopathy. Normal caliber abdominal aorta. The adrenal glands are unr emarkable. There is a subcentimeter cysts within the left kidney. The visualized loops of bowel show no wall thickening or obstruction. IMPRESSION: 1. There is a 4 mm stone at the distal common bile duct likely resulting in the mild intra and extra hepatic bile duct dilatation. 2. Trace pericholecystic fluid with a distended gallbladder containing multiple small stones. An mamadou y acute cholecystitis would be the diagnosis of exclusion. ACT 112: Negative or not required by law. Electronically signed by: Thiago Francis M.D. 07/26/2022 1:39 PM
--- NOTE | 2022-07-26 15:17 | Gastrointestinal Consultation ---
Date of Consultation July 26, 2022 Assessment & Plan (1) Cholelithiasis: Plan ERCP tomorrow by Dr. Leon. Further recommendations to follow. Possible complications including bleeding, bile duct perforation, infection and pancreatitis were discussed w the pt and his mother. The pt would like to go forward w the procedure. Supervising Physician Co-Signing Physician Notes I performed a history and physical examination of the patient today, including specifically on physical exam - soft abdomen. I have discussed the patient's management with the advanced practitioner. Please refer to the nurse practitioner's note for the documented findings and plan of care. ERCP tomorrow. Clear liquids now in view of his gastroparesis. History of Present Illness Reason for Consultation: Choledocholithiasis Requesting Physician: Dr. Vigil/Yennifer Andrade PA-C Attending Physician: Jose Pat DO History of Present Illness Mr. Luis Tijerina is a 27 yr old male pt of Dr Kristi Blackburn, w a hx of DM-1, and follows w [facility] for 1 diabetes, cannabinoid hyperemesis syndrome, gastroparesis. He reports a hx of intermittent episodes of nausea/vomiting and upper abdomen/back pain for the past few months. He denies fevers/chills/sweats. On arrival transaminases were very high: AST 1127 ->294 today; ALT 294->651->438 today. T Bili and alk phos have been moderately elevated and are increasing T Bili 1.1->3.3, Alk Phos 159->233. CT and US on arrival w gallstones and gallbladder distention. Serology thus far is negative for viral and autoimmune hepatitis. MRCP today shows a 4mm distal CBD stone w mild intra/extrahepatic bile duct dilation. [facility] is asked to provide ERCP. Allergies Allergy/AdvReac Type Severity Reaction Status Date / Time Cephalosporins Allergy Intermediate Hives Verified 07/22/22 21:15 Sulfa (Sulfonamide Allergy Intermediate Hives Verified 07/22/22 21:15 Antibiotics) azithromycin [From Zithromax] AdvReac Intermediate Hives Verified 07/22/22 21:15 Home Medications Medication Instructions Recorded Confirmed Type melatonin 5 mg tablet 5 mg PO HS 05/15/20 07/22/22 History blood sugar diagnostic (Contour #400 ea 08/06/21 06/25/22 Rx Next Test Strips) insulin aspart U-100 100 unit/mL 0 unit continuous subcutaneous 10/04/21 07/22/22 History subcutaneous solution infusion CONTINOUS glucagon 3 mg/actuation nasal 3 mg intranasal DIRECTED PRN 11/02/21 07/22/22 Rx spray (Baqsimi) Hypoglycemia #2 ea Patient History Medical History Anemia Cyclic vomiting syndrome Diabetes type 1, uncontrolled Gastroparesis Hematemesis Hepatitis History of opioid abuse Hypokalemia Hypomagnesemia Intractable cyclical vomiting with nausea Intractable vomiting with nausea Marijuana use Methadone dependence Pneumomediastinum Soft tissue abscess Type I diabetes mellitus Surgical History No pertinent past surgical history Family History Father Valvular heart disease Mother Hypothyroidism Other Cancer Diabetes Heart disease Hypertension Social History Smoking Status: Never smoker Tobacco Type: E-cigarettes / Vaping Cigarettes Per Day: 3; Second Hand Exposure: No; Hx Alcohol Use: No Hx Substance Use: No Preferred Language: Maltese Communication Ability: Effective Director Prison Required: No Beliefs That Will Affect Care: None marital status: Single Current Living Situation: Alone current occupational status: unemployed How many Children do You have: 0 Other Information That Helps Us Care for You: No Feels Safe at Home: Yes Safety Concerns: Feels Safe At This Time during the past year weight has: decreased > 10 lbs Assistive Devices: None Review of Systems Review of Systems: ROS: Gen: Denies weakness, fevers, weight loss Eyes: No eye redness, or pain, no recent vision changes Resp: No SOB, no cough Cardio: No palpitations/irregular beats, no chest pain GI: As per HPI, otherwise (-). : Denies pain on urination Skin: No jaundice, itching or new rashes Physical Exam Constitutional: WD/WN, vitals as above Eyes: PERRL, conjunctivae normal, anicteric sclerae ENMT: external ear and nose normal, oropharynx normal Neck: trachea midline, no thyromegaly Respiratory: normal respiratory effort, lungs clear to auscultation Cardiovascular: RRR, no murmur, no edema Gastrointestinal (Abdomen): Inspection/Auscultation: abdomen normal to inspection and + hypoactive bowel sounds; abdomen not distended Percussion/Palpation: + abdomen tender (mild/moderate RUQ tenderness) and abdomen soft; no splenomegaly Musculoskeletal: no cyanosis or clubbing, extremities motor strength 5/5 Skin: no rashes, warm and dry Neurologic: PERRL, EOMI, accommodation nl, no face palsy, no dysarthria Psychiatric: A+Ox3, euthymic affect Lymphatic: no cervical or axillary lymphadenopathy Results & Data ([facility]) Vital Signs (Past 12 Hours) Vital Signs Temp Pulse Resp BP Pulse Ox O2 Del Method 07/26/22 10:55 Room Air 07/26/22 07:44 36.5 C 72 18 121/82 97 Room Air Laboratory Results WBC 4.8, Hb 11.5, Hct 34.5, Plts 234, Na 141, K 3.7, Cl 10, CO2 27, BUN 3, Cr 0.69, plts 183. T Bili 3.3, AST 294, ALT 438, Alk Phos 233 Hep A/B/C are pending; monospot (-). COVID/SARS (-). Diagnostic Findings MRCP 07/26/21: 1. There is a 4 mm stone at the distal common bile duct likely resulting in the mild intra and extra hepatic bile duct dilatation. 2. Trace pericholecystic fluid with a distended gallbladder containing multiple small stones. An early acute cholecystitis would be the diagnosis of exclusion. Liver US 07/25/22: 1. Cholelithiasis and trace pericholecystic fluid with significant gallbladder distention, increased since prior ultrasound. Acute cholecystitis cannot be excluded. A nuclear medicine hepatobiliary scan could be obtained for further evaluation. 2. Interval development of mild biliary ductal dilatation which could be correlated with obstructive liver function tests. Gallbladder US 07/22/22: 1. Cholelithiasis with gallbladder distention and adenomyomatosis. No pericholecystic fluid was identified. Findings should be correlated with laboratory analysis and clinical exam findings to exclude acute cholecystitis. Nuclear medicine hepatobiliary scan may also be considered. 2. No biliary ductal dilation. CTAP 07/22/22: 1. No bowel wall thickening or obstruction. 2. No hydronephrosis. 3. The appendix is not identified. 4. The gallbladder is mildly distended. No gallbladder wall thickening. 5. Additional findings as described above.
[2022-07-26] MEDS: INSULIN ASPART PER UNIT SC SCH ×3 (17:55→21:26)
--- NOTE | 2022-07-26 19:06 | Billing Data ---
Date of Service July 26, 2022 Coding Level of Care Code 60293 SUB INP/OBS CARE
[2022-07-26] MEDS: MELATONIN 3 MG TAB PO SCH (21:25)
[2022-07-26] MEDS: LANTUS PER UNIT CHARGE SQ SCH (21:26)
[2022-07-27] MEDS: CARBOHYDRATES FOR HYPOGLYCEMIA PO PRN (00:02)
[2022-07-27] MEDS: SODIUM CHLORIDE 0.9% 1000ML 1,000 ML IV SCH ×3 (00:08→16:58)
[2022-07-27] MEDS: INSULIN ASPART PER UNIT SC SCH ×5 (00:09→21:23)
[2022-07-27] MEDS: DEXTROSE 50% 50 ML SYRINGE IV PRN (00:39)
[2022-07-27] MEDS: MoRPHine SULFATE 2 MG/ML CARP IV PRN ×2 (01:29→07:47)
[2022-07-27] MEDS: LIDOCAINE 5% 1 PATCH TD SCH (07:50)
[2022-07-27 08:28] LABS: Basophils # (auto) 0.04 K/uL (0-0.2); Basophils % (auto) 0.7 %; Eosinophils # (auto) 0.22 K/uL (0-0.50); Hematocrit (blood only) 38.5 % (42.0-52.0); Hemoglobin 12.6 g/dl (14.0-18.0); Immature Granulocytes # (auto) 0.03 K/uL (0.01-0.20); Immature Granulocytes % (auto) 0.5 %; Lymphocytes # (auto) 2.13 K/uL (1.2-3.4); Lymphocytes % (auto) 38.8 %; Mean Corpuscular Hemoglobin 30.1 pg (25.0-34.0); Mean Corpuscular Hgb Conc 32.7 g/dL (32.0-36.0); Mean Corpuscular Volume 92.1 fL (80.0-100.0); Mean Platelet Volume 9.9 fL (9.4-12.4); Monocytes # (auto) 0.41 K/uL (0.11-0.59); Monocytes % (auto) 7.5 %; Neutrophils # (auto) 2.66 K/uL (1.40-6.50); Neutrophils % (auto) 48.5 %; Platelet Count 248 K/uL (130-400); RDW Coefficient of Variation 12.9 % (11.5-14.5); RDW Standard Deviation 43.5 fL (36.4-46.3); Red Blood Count 4.18 M/uL (4.70-6.10); White Blood Count 5.49 K/ul (4.8-10.8)
[2022-07-27] MEDS ORDERED: ERYTHROMYCIN 250 MG in SODIUM CHLORIDE 0.9% 250 ML IV ONE (09:00)
[2022-07-27 09:11] LABS: Alanine Aminotransferase 356 U/L (7-52); Albumin Globulin Ratio 1.6 (0.9-2); Albumin Level 3.8 gm/dl (3.4-5.0); Alkaline Phosphatase 258 U/L (34-104); Anion Gap 5 (3-11); Aspartate Aminotransferase 106 U/L (13-39); BUN Creatinine Ratio 6.2 (10-20); Bilirubin,Total 1.5 mg/dl (0.2-1.0); Blood Urea Nitrogen 4 mg/dl (6-23); Carbon Dioxide 31 mmol/L (21-32); Chloride 106 mmol/L (98-107); Creatinine Clr Calc Pharmacy 194.9 ml/min; Est GFR (African American) > 150.0 ml/min; Est GFR (Non-African American) 134.3 ml/min; Globulin 2.4 gm/dl (2.5-4.0); Glucose 124 mg/dl (70-99(Fasting)); Magnesium 1.7 mg/dl (1.7-2.4); Phosphorus 3.3 mg/dl (2.5-4.9); Potassium 3.9 mmol/L (3.5-5.1); Sodium 142 mmol/L (136-145); Total Protein 6.2 gm/dl (6.0-8.3)
[2022-07-27 10:47] LABS: HBSAG NON-REACTIVE (NON-REACTIVE); Hepatitis A Antibody IgM NON-REACTIVE (NON-REACTIVE); Hepatitis B Core Antibody IgM NON-REACTIVE (NON-REACTIVE)
--- NOTE | 2022-07-27 10:47 | Pharmacy Report ---
Pharmacy Glycemic Short Note 2 - Date of Service July 27, 2022 - Glycemic Short BSG Results (Last 24 hours): 07/26/22 07/26/22 07/26/22 13:04 17:01 20:38 Glucose POC Glucose 123 H 185 H 213 H 07/26/22 07/27/22 07/27/22 23:59 00:03 00:35 Glucose POC Glucose 64 L* 65 L* 56 L* 07/27/22 07/27/22 07/27/22 00:37 01:05 05:44 Glucose POC Glucose 59 L* 160 H 143 H 07/27/22 07:59 Glucose 124 H POC Glucose OUTPATIENT ANTIDIABETIC REGIMEN: * Insulin pump - up to 60 units/day ASSESSMENT: * Mr Tijerina is a 27 y/o T1DM who presents with transaminitis. * Patient's diet status is currently NPO due to scheduled procedure today (07/27/22). * Patient received 19 units of Lantus and 11 units of bolus insulin yesterday. * Patient experienced low BSGs overnight (56-64 mg/dL); bolus insulin parameters were loosened to CF: 35 and CR: 10. PLAN FOR INPATIENT GLYCEMIC CONTROL: * Basal insulin * Lantus 19 units HS * Bolus insulin * NovoLog per scale ACHS or Q6hrs while NPO * Goal Range: Low 110 mg/dL - High 150 mg/dL * Correction Factor: 35 mg/dL/unit * Nutritional / Prandial insulin per carb ratio of 1 unit per 10 grams CHO consumed
--- NOTE | 2022-07-27 11:49 | History & Physical Bridge Note ---
Date of Service July 27, 2022 History & Physical Bridge Note I have examined the patient, reviewed the History & Physical and in the interval since the performance of the History & Physical I have noted the following changes of clinical significance: Results of the ERCP and lab work discussed. Discussed the need for ERCP followed by cholecystectomy. We discussed the risks which include bleeding infection injury to another organ such as small bowel, bile ducts, bile leaks, DVT, PE, [place], CVA etc. We also discussed his options. I have answered all of his questions. We will proceed today with laparoscopic cholecystectomy following his ERCP. He agrees with our plan.
--- NOTE | 2022-07-27 11:58 | Anesthesiology Consultation ---
Date of Service July 27, 2022 Assessment & Plan Chart Review Chart Review: Acceptable Risk for Surgery Consults Requested none History Surgery Operation Date: 07/27/22 12:10 Proposed Procedures p Endoscopic Retrograde Cholangiopancreatogram - Dax Leon MD s Laparoscopic Cholecystectomy - Carlos Vigil, Height/Weight Height: 6 ft 2 in Weight: 80 kg Allergies Allergy/AdvReac Type Severity Reaction Status Date / Time Cephalosporins Allergy Intermediate Hives Verified 07/22/22 21:15 Sulfa (Sulfonamide Allergy Intermediate Hives Verified 07/22/22 21:15 Antibiotics) azithromycin [From Zithromax] AdvReac Intermediate Hives Verified 07/22/22 21:15 Medications Home Medications Medication Instructions Recorded Confirmed Last Taken melatonin 5 mg tablet 5 mg PO HS 05/15/20 07/22/22 07/21/22 blood sugar diagnostic (Contour #400 ea 08/06/21 06/25/22 Unknown Next Test Strips) insulin aspart U-100 100 unit/mL 0 unit continuous subcutaneous 10/04/21 07/22/22 06/25/22 subcutaneous solution infusion CONTINOUS glucagon 3 mg/actuation nasal 3 mg intranasal DIRECTED PRN 11/02/21 07/22/22 Unknown spray (Baqsimi) Hypoglycemia #2 ea Active Medications Generic Name Dose Route Start Last Admin Trade Name Freq PRN Reason Stop Dose Admin Dextrose 25 - 50 ml 07/23/22 05:27 07/27/22 00:39 Dextrose 50% 50 Ml Syringe IV 08/22/22 05:26 25 ml UD PRN Administration Hypoglycemia Protocol Protocol Sodium Chloride 1,000 mls @ 150 mls/hr 07/25/22 18:30 07/27/22 11:45 Nss 1000ml IV 08/24/22 18:29 0 mls/hr .Q6H40M YEU Infusion Insulin Aspart 0 units 07/27/22 00:00 07/27/22 11:56 Insulin Aspart Per Unit SC 08/26/22 00:00 Not Given Q6 [facility] Protocol Insulin Glargine 19 units 07/25/22 21:00 07/26/22 21:26 Lantus Per Unit Charge SQ 08/24/22 20:59 19 units HS YUE Administration Protocol Ketorolac Tromethamine 15 mg 07/23/22 03:36 07/25/22 12:08 Ketorolac Tromethamine 15 Mg/Ml Vial IV 07/28/22 03:35 15 mg Q6H PRN Administration Pain & Pre PT Lidocaine 1 patch 07/25/22 13:15 07/27/22 07:50 Lidocaine 5% 1 Patch TD 08/24/22 13:14 1 patch QAM YUE Administration Melatonin 4.5 mg 07/23/22 21:00 07/26/22 21:25 Melatonin 3 Mg Tab PO 08/22/22 20:59 4.5 mg HS YUE Administration Miscellaneous 15 - 30 gm 07/23/22 05:27 07/27/22 00:02 Carbohydrates For Hypoglycemia PO 08/22/22 05:26 15 gm UD PRN Administration Hypoglycemia Protocol Miscellaneous 1 each 07/25/22 21:00 07/26/22 21:56 Remove Lidoderm Patch N/A 08/24/22 20:59 1 each DAILY@2100 YUE Administration Morphine Sulfate 2 mg 07/25/22 19:26 07/27/22 07:47 Morphine Sulfate 2 Mg/Ml Carp IV 08/08/22 19:25 2 mg Q4H PRN Administration Pain Ondansetron HCl 4 mg 07/23/22 03:31 07/25/22 12:57 Ondansetron Inj 2 Mg/Ml 2 Ml Vial IV 08/22/22 03:30 4 mg Q4H PRN Administration Nausea NPO Date Last Intake of Fluids: 07/26/22 Time Last Intake of Fluids: 23:59 Date Last Intake of Solids: 07/26/22 Time Last Intake of Solids: 23:59 Past Medical History Medical History Anemia Cyclic vomiting syndrome Diabetes type 1, uncontrolled Gastroparesis Hematemesis Hepatitis History of opioid abuse Hypokalemia Hypomagnesemia Intractable cyclical vomiting with nausea Intractable vomiting with nausea Marijuana use Methadone dependence Pneumomediastinum Soft tissue abscess Type I diabetes mellitus Past Family History Family History Father Valvular heart disease Mother Hypothyroidism Other Cancer Diabetes Heart disease Hypertension Past Surgical History Surgical History No pertinent past surgical history Social History Smoking Status: Never smoker tobacco type: e-cigarettes Smoking cigarettes per day: 3 Hx Alcohol Use: No Alcohol type: beer alcohol intake frequency: a few times a week Hx Substance Use: No substance use type: former substance user, marijuana and amphetamines Substance Use Type Other:: 1 week ago Last Used Substance: Days (ago) Last Used Substance Other:: tuesday claimed by patient Physical Exam Vital Signs Last Vital Signs Temp 36.9 C 07/27/22 10:52 Pulse 76 07/27/22 10:52 Resp 16 07/27/22 10:52 BP 133/87 07/27/22 10:52 Pulse Ox 99 07/27/22 10:52 O2 Del Method 07/27/22 10:52 Testing Laboratory Results 07/27/22 07:59 07/27/22 07:59 PT 11.0 Seconds (9.0-12.0) 07/26/22 07:25 INR 1.0 (0.9-1.1) 07/26/22 07:25 Hemoglobin A1c 7.4 % (4.5-5.6) H 07/23/22 05:28 Urine Color Dark Yellow 07/23/22 09:14 Urine Appearance Clear (Clear) 07/23/22 09:14 Urine pH 7.5 (4.5-7.5) 07/23/22 09:14 Ur Specific [place] 1.041 (1.000-1.030) H 07/23/22 09:14 Urine Protein 1+ (Negative) H 07/23/22 09:14 Urine Glucose (UA) 3+ (Negative) H 07/23/22 09:14 Urine Ketones 3+ (Negative) H 07/23/22 09:14 Urine Nitrite Positive (Negative) A 07/23/22 09:14 Ur Leukocyte Esterase Trace (Negative) H 07/23/22 09:14 Urine WBC (Auto) 1-5 /hpf (0-5) 07/23/22 09:14 Urine RBC (Auto) 0-4 /hpf (0-4) 07/23/22 09:14 U Hyaline Cast (Auto) 0 /lpf (0-5) 07/23/22 09:14 U Epithel Cells (Auto) 5-10 /lpf (0-5) H 07/23/22 09:14 Urine Bacteria (Auto) Negative (Negative) 07/23/22 09:14 07/27/22 07/27/22 07/27/22 11:41 05:44 01:05 POC Glucose 125 H 143 H 160 H 07/27/22 07/27/22 07/27/22 00:37 00:35 00:03 POC Glucose 59 L* 56 L* 65 L* 07/26/22 23:59 POC Glucose 64 L*
[2022-07-27] MEDS ORDERED: PROMETHAZINE HCL 12.5 MG in SODIUM CHLORIDE 0.9% 50 ML IV PRN (12:28)
[2022-07-27] MEDS ORDERED: HYDROmorphone INJ 1 MG/ML SYRINGE IV PRN (12:28)
[2022-07-27] MEDS ORDERED: ONDANSETRON INJ 2 MG/ML 2 ML VIAL IV PRN (12:28)
[2022-07-27] MEDS ORDERED: ATROPINE SULFATE 0.1 MG/ML 10ML SYR IV PRN (12:28)
[2022-07-27] MEDS ORDERED: ePHEDrine sulfate 50 MG/ML AMP IV PRN (12:28)
[2022-07-27] MEDS ORDERED: fentaNYL citrate 100 MCG/2 ML VIAL IV PRN (12:28)
[2022-07-27] MEDS ORDERED: MIDAZOLAM HCL 1 MG/ML 2ML VIAL ONE (12:40)
[2022-07-27] MEDS ORDERED: GLYCOPYRROLATE 0.2 MG/ML VIAL ONE ×2 (12:40→14:57)
[2022-07-27] MEDS ORDERED: ONDANSETRON INJ 2 MG/ML 2 ML VIAL ONE ×2 (12:40→14:49)
[2022-07-27] MEDS ORDERED: NEOSTIGMINE METHYLSULFATE 1 MG/ML 10ML VIAL ONE (12:40)
[2022-07-27] MEDS ORDERED: PROPOFOL IV EMULSION 10 MG/ML 20 ML VIAL IV ONE (12:40)
[2022-07-27] MEDS ORDERED: fentaNYL citrate 100 MCG/2 ML VIAL ONE ×3 (12:40→14:35)
--- NOTE | 2022-07-27 12:41 | Hospitalist Progress Note ---
Date of Service July 26, 2022 Assessment & Plan (1) Transaminitis: Plan: 27-year-old man with type 1 diabetes, gastroparesis, and OUD in remission who presented with nausea and vomiting and admitted for management of acute transaminitis >1000s. Hepatocellular Transaminitis -Patient presented with n/v and R flank pain that has occurred intermittently over the last 6 months -Workup as follows: -No white count. CRP, ESR, procal pending. -AST predominant (1127 to 294), bilirubin 1.1, alk phos 159. Lipase wnl. -RUQ US demonstrating gallbladder distention with adenomyomatosis, no pericholecystic fluid. No biliary ductal dilation -CT-A/P: Mildly distended gallbladder. -Patient reports h/o OUD, unclear at this time if this included IVDU - On admission, LFTs have more of a hepatocellular pattern than cholestatic. His LFTs were profoundly elevated despite no e/o biliary ductal dilation or gross inflammatory changes of the gallbladder (but distention noted). Suspect that some of his R flank pain may have some role in the last 6mo, but difficult to say. Lower suspicion that his gallbladder is source of transaminitis as not really a cholestatic pattern. Larger suspicion for viral hepatitis; autoimmune also considered given T1DM, +FHx of thyroid disease. -MRCP performed today showed a stone in the common bile duct. Plan to have patient have cholecystectomy and ERCP tomorrow concurrently. N.p.o. after midnight. - Viral hepatitis panel pending -Pain: Toradol and Morphine 2mg q4h prn -- Patient with hx of OUD in remission; discussed concerns for analgesia w/ morphine however patient comfortable for acute pain; continue use with caution Type 1 Diabetes (A1c 7.4%) -Normally wears insulin pump at home. However, left at home as he wanted to change the site. -Glycemic consultation appreciated while here given NPO (on admission), ill state, likely fluctuating insulin requirements Nausea with Vomiting -Intermittent bouts of R flank pain intermixed with nausea and vomiting that are not prandially related x 6mo -Patient does have h/o gastroparesis, which is noted -Suspect somehow related to the transaminitis outlined above -- but not exactly clear. Lower suspicion this is MICHELLE given infrequent and low %THC content in his reported cannabis use -Patient with continued intermittent nausea but no vomiting since hospital admission -Continue to monitor -Symptomatic management for now as above Code: Full code Dispo: Med-Surg FEN/GI: NPO at midnight pending surgical evaluation; IVF with NSS started at 125 cc/hr x 2L DVT Prophylaxis: Frequent ambulation PT/OT: No Consults: GI, general surgery (2) Diabetes type 1, uncontrolled: (3) Hyperbilirubinemia: (4) Nausea & vomiting: Admission and Anticipated Discharge Date Admission Date: July 23, 2022 Supervising Physician Co-Signing Physician Notes I personally examined the patient and verified all gonzales points of history and exam, discussed case, and agree with decision making with Dr Marti Feeling okay. Nausea doing okay right now. No significant pain at this time. For ERCP and cholecystectomy tomorrow. Abdominal pain/nausea almost certainly due to biliary disease. For ERCP and cholecystectomy tomorrow. Type 1 diabetes under reasonable control at this time. Subjective Patient seen at bedside this morning. No acute events reported overnight. Overall not having any nausea or vomiting but currently n.p.o. for MRCP. Does have some lower back pain that is new but feels it is due to being in bed for so long. Otherwise overall doing well and has no concerns at this time. Review of Systems Review of Systems: Per HPI Physical Exam Constitutional: WD/WN, vitals as above Eyes: + anicteric sclerae Neck: trachea midline, no thyromegaly Respiratory: normal respiratory effort, lungs clear to auscultation Cardiovascular: RRR, no murmur, no edema Chest (Breasts): normal inspection/palpation of breasts Gastrointestinal (Abdomen): Inspection/Auscultation: abdomen normal to inspection and normal bowel sounds Percussion/Palpation: + abdomen tender (Mild tenderness to palpation of the right upper quadrant) and abdomen soft Musculoskeletal: Head/Neck/Chest: normocephalic and head atraumatic Skin: no rashes, warm and dry Neurologic: moves all extremities Psychiatric: A+Ox3, euthymic affect Results & Data Results & Data ([facility]) Vital Signs (Past 12 Hours) Vital Signs Temp Pulse Resp BP Pulse Ox O2 Del Method 07/27/22 12:21 36.7 C 72 20 145/94 H 100 Room Air 07/27/22 10:52 36.9 C 76 16 133/87 99 Room Air 07/27/22 07:14 36.7 C 68 16 131/85 99 Room Air (1) Diabetes type 1, uncontrolled Glycemic state: with hyperglycemia Qualified Code(s): E10.65 - Type 1 diabetes mellitus with hyperglycemia
[2022-07-27] MEDS ORDERED: CIPROFLOXACIN 400MG / 200ML D5W IV ONE (12:44)
[2022-07-27] MEDS ORDERED: Nursing to Pharmacy Communication SCH ×2 (12:45→16:45)
[2022-07-27] MEDS ORDERED: CIPROFLOXACIN / D5W 400 MG/200 ML BAG IV STA (13:00)
--- NOTE | 2022-07-27 13:04 | History & Physical Bridge Note ---
Date of Service July 27, 2022 History & Physical Bridge Note I have examined the patient, reviewed the History & Physical and in the interval since the performance of the History & Physical I have noted the following changes of clinical significance: no changes noted
[2022-07-27] MEDS ORDERED: BUPIVACAINE/EPINEPHRINE 0.5% MPF 1:200,000 30 ML VIAL ONE (13:10)
[2022-07-27] MEDS ORDERED: INDOMETHACIN 50 MG SUPP PR ONE ×2 (13:11→13:32)
--- NOTE | 2022-07-27 13:48 | Operative Report ---
Post Operative Report Pre & Post Diagnosis Operation Date: 07/27/22 12:10 Pre-Op Diagnosis: Cholelithiasis I identified the patient and participated in the time-out.: Yes Procedure Operation Date: 07/27/22 12:10 Actual Procedures p Endoscopic Retrograde Cholangiopancreatogram(Not Applicable) - Dax Leon MD s Laparoscopic Cholecystectomy - Carlos Vigil DO Surgeon Dax Leon MD Tax Services Specialist None Estimated Blood Loss 0 Findings See Below (CBD sludge removed) Specimens None Description of Procedure ERCP I attest to the content of the Intraoperative Record and any orders documented therein. Any exceptions are noted below.
--- NOTE | 2022-07-27 14:06 | GI REPORT ---
Patient Name: Luis Tijerina Procedure Date: 07/27/2022 1:15 PM Date of : 1995 Admit Type: Inpatient Age: 27 Gender: Male Attending MD: Dax Leon MD, Procedure: ERCP Providers: Dax Leon MD Referring MD: Carlos Vigil Indications: Bile duct stone(s) Medicines: General Anesthesia Complications: No immediate complications. Estimated Blood Loss: Estimated blood loss: none. Procedure: Pre-Anesthesia Assessment: - Prior to the procedure, a History and Physical was performed, and patient medications, allergies and sensitivities were reviewed. The patient's tolerance of previous anesthesia was reviewed. - The risks and benefits of the procedure and the sedation options and risks were discussed with the patient. All questions were answered and informed consent was obtained. - Patient identification and proposed procedure were verified prior to the procedure by the physician and the nurse. The procedure was verified in the procedure room. - Pre-procedure physical examination revealed no contraindications to sedation. After obtaining informed consent, the scope was passed under direct vision. Throughout the procedure, the patient's blood pressure, pulse, and oxygen saturations were monitored continuously. The Duodenoscope was introduced through the mouth, and advanced to the duodenum and used to inject contrast into the bile duct. The ERCP was accomplished without difficulty. The patient tolerated the procedure well. Findings: The car chaser film was normal. The esophagus was successfully intubated under direct vision. The scope was advanced to a normal major papilla in the descending duodenum without detailed examination of the pharynx, larynx and associated structures, and upper GI tract. The upper GI tract was grossly normal. A 0.025 inch x 270 cm angled Visiglide wire was passed into the biliary tree. The short-nosed traction sphincterotome was passed over the guidewire and the bile duct was then deeply cannulated. Contrast was injected. I personally interpreted the bile duct images. Ductal flow of contrast was adequate. Image quality was adequate. Contrast extended to the main bile duct. Opacification of the entire biliary tree was successful. The maximum diameter of the ducts was 8 mm. Biliary sphincterotomy was made with a monofilament traction (standard) sphincterotome using ERBE electrocautery. There was no post-sphincterotomy bleeding. The biliary tree was swept with an 11.5 mm balloon starting at the bifurcation. Sludge was swept from the duct. Indomethacin 100 mg was given via suppository to decrease the risk of post-ERCP pancreatitis (PEP). Impression: - A biliary sphincterotomy was performed. - The biliary tree was swept and sludge was found. Recommendation: - Return patient to hospital [facility] for ongoing care. - Proceed with cholecystectomy. Dax Leon MD 07/27/2022 2:05:40 PM This report has been signed electronically. Note Initiated On: 07/27/2022 1:15 PM Number of Addenda: 0 I attest to the content of the Intraoperative Record and orders documented therein, exceptions below {[id number]}
[2022-07-27] MEDS ORDERED: ROCURONIUM BROMIDE 10 MG/ML 5 ML VIAL IV ONE (14:10)
[2022-07-27] MEDS ORDERED: LIDOCAINE 2% MPF LOCAL 5 ML VIAL INFIL ONE (14:10)
[2022-07-27] MEDS ORDERED: ACETAMINOPHEN 1000 MG/100 ML IV IV ONE (14:24)
--- NOTE | 2022-07-27 14:32 | Fluoroscopy Report ---
INTRAOPERATIVE RADIOGRAPHS CLINICAL HISTORY: ERCP. Fluoroscopy time: 14 seconds. Exposure: 5.24 mGy FINDINGS: 5 spot fluoroscopic views of the right upper quadrant from an ERCP procedure are correlated with MRCP dated 07/26/2022. A catheter is advanced into the common bile duct which appears dilated. A filling defect within the common duct could represent a gas bubble versus choledocholithiasis. A bal loon sweep of the common duct is performed. There is no significant intrahepatic biliary ductal dilat ation. Contrast fills the gallbladder and outlines numerous gallstones. IMPRESSION: Intraoperative ERCP images as above. See operative report for detailed findings. Electronically signed by: Scott Gordon M.D. 07/27/2022 2:30 PM
[2022-07-27] MEDS ORDERED: KETOROLAC 30 MG/ML VIAL ONE (14:44)
--- NOTE | 2022-07-27 15:11 | Operative Report ---
PG Post Operative Report Pre & Post Diagnosis Operation Date: 07/27/22 12:10 Pre-Op Diagnosis: Cholelithiasis Post-Op Diagnosis: Cholelithiasis;incidental enterotomy I identified the patient and participated in the time-out.: Yes Procedure Operation Date: 07/27/22 12:10 Actual Procedures p Endoscopic Retrograde Cholangiopancreatogram(Not Applicable) - MD kellen Rankin Laparoscopic Cholecystectomy, Repair of Incidental Enterotomy - Carlos Vigil DO Surgeon Carlos Vigil DO Fruit And Vegetable Classer None Estimated Blood Loss 20 Findings See Below (CBD sludge removed) Specimens gallbladder Description of Procedure Please see Dr. Leon's note. The patient had been in the operating room intubated and underwent an ERCP. I was called in the room whenever he was finished with his portion of the procedure. The patient's abdomen was shaved and sterilely prepped and draped in usual fashion. A supraumbilical incision was made with an 11 blade scalpel and carried down through the soft tissue using cautery. The anterior fascia was opened using cautery and two #0 Vicryl stay sutures were placed. Peritoneum was elevated with hemostats and incised under direct vision using Metzenbaum scissor. During this process a small serosal enterotomy was made. It was noted immediately. The bowel was pulled out through the fascial defect. It was about a 1 cm enterotomy and again did not appear to be full-thickness. Nonetheless we performed a full-thickness repair with 3-0 Monocryl for a serosal/mucosal oversewing of the area followed by 3-0 silk to cover over the enterotomy in Lembert fashion. The bowel was then replaced back into the abdominal cavity. A 12 mm Leong trocar was advanced and the abdomen insufflated to 18 mmHg. The laparoscope was inserted and the abdomen examined 360 degrees. No other bowel injuries were noted. No other gross abnormalities were noted. The patient was placed in reverse Trendelenburg position and slightly airplaned to the left. A subxiphoid 5 mm port and 2 right upper quadrant 5 mm ports were all placed under direct vision. The gallbladder was inflamed. It was grasped and elevated superiorly and laterally. Adhesions around the neck of the gallbladder were taken down using a [place] dissector. The cystic duct was identified and skeletonized. It was clipped twice proximally once distally and transected using a scissor. There was a small anterior branch of the artery which was clipped and divided followed by the main branch which was clipped twice proxi puma once distally and transected as well. The gallbladder was removed from the gallbladder fossa using cautery. It was placed into an Endo Catch bag and removed from the camera port site. Thorough irrigation of the right upper quadrant was performed. There was adequate hemostasis and no evidence of any bile leaks. We reexamined the bowel and the enterotomy site 1 last time and it looked like it was well repaired. The trochars were all removed and the abdomen desufflated. The fascia of the camera port was closed using 0 Vicryl in simple interrupted fashion. All wounds were irrigated and closed using 4-0 Monocryl. Marcaine with epinephrine was injected around them for postoperative analgesia and skin glue used as a dressing. The patient was awakened extubated and transferred recovery in stable condition. My physician assistant professor of forestry was present for the entire case was instrumental in assisting throughout the case including repair of the enterotomy, cholecystectomy, wound closure and dressing placement. I attest to the content of the Intraoperative Record and any orders documented therein. Any exceptions are noted below.
--- NOTE | 2022-07-27 15:57 | Anesthesiology Progress Note ---
Date of Service July 27, 2022 Anesthesia Post Procedure Vital Signs Vital Signs: Temp Pulse Pulse Resp BP Pulse Ox O2 Del Method 07/27/22 15:50 97.5 F L 74 15 137/95 100 Room Air 07/27/22 15:40 61 8 L 149/97 H 100 Oxymask 07/27/22 15:30 61 17 144/93 H 100 Oxymask 07/27/22 15:20 60 9 L 153/99 H 100 Oxymask 07/27/22 15:11 96.8 F L 74 12 158/87 H 100 Oxymask 07/27/22 12:21 98.1 F 72 20 145/94 H 100 Room Air 07/27/22 10:52 98.4 F 76 16 133/87 99 Room Air 07/27/22 07:14 98.1 F 68 16 131/85 99 Room Air 07/26/22 21:56 98.2 F 62 15 130/84 99 Room Air 07/26/22 20:22 Room Air O2 Flow Rate 07/27/22 15:50 07/27/22 15:40 2 07/27/22 15:30 5 07/27/22 15:20 5 07/27/22 15:11 7 07/27/22 12:21 07/27/22 10:52 07/27/22 07:14 07/26/22 21:56 07/26/22 20:22 Pain Intensity Back: Pain Intensity: 5 Right Abdomen: Pain Intensity: 4 Transfer of Care Handoff Completed per policy Notes Mental Status: alert / awake / arousable and participated in evaluation Patient Amnestic to Procedure: Yes Nausea / Vomiting: adequately controlled Pain: adequately controlled Airway Patency, RR, SpO2: stable & adequate BP & HR: stable & adequate Hydration State: stable & adequate Anesthetic Complications: no major complications apparent and Pt Satisfied with anesthetic care
[2022-07-27] MEDS ORDERED: MoRPHine SULFATE 2 MG/ML CARP IV PRN (16:35)
[2022-07-27] MEDS ORDERED: oxyCODONE HCL IR 5 MG TAB (IMMEDIATE RELEASE) PO PRN (16:35)
[2022-07-27] MEDS: LACTATED RINGER'S 1,000 ML IV SCH (16:56)
[2022-07-27] MEDS: KETOROLAC TROMETHAMINE 15 MG/ML VIAL IV PRN (17:04)
[2022-07-27] MEDS: MoRPHine SULFATE 4 MG/ML 1 ML CARP\\VIAL IV PRN ×3 (17:45→23:29)
--- NOTE | 2022-07-27 18:05 | Hospitalist Progress Note ---
Date of Service July 27, 2022 Assessment & Plan (1) Transaminitis: Plan: 27-year-old man with type 1 diabetes, gastroparesis, and OUD in remission who presented with nausea and vomiting and admitted for management of acute transaminitis >1000s. Hepatocellular Transaminitis -Patient presented with n/v and R flank pain that has occurred intermittently over the last 6 months -Workup as follows: -No white count. CRP, ESR, procal pending. -AST predominant (1127 to 294), bilirubin 1.1, alk phos 159. Lipase wnl. -RUQ US demonstrating gallbladder distention with adenomyomatosis, no pericholecystic fluid. No biliary ductal dilation -CT-A/P: Mildly distended gallbladder. -Patient reports h/o OUD, unclear at this time if this included IVDU - On admission, LFTs have more of a hepatocellular pattern than cholestatic. His LFTs were profoundly elevated despite no e/o biliary ductal dilation or gross inflammatory changes of the gallbladder (but distention noted). Suspect that some of his R flank pain may have some role in the last 6mo, but difficult to say. Lower suspicion that his gallbladder is source of transaminitis as not really a cholestatic pattern. Larger suspicion for viral hepatitis; autoimmune also considered given T1DM, +FHx of thyroid disease. -Patient to have cholecystectomy and ERCP performed today. If all goes well, expect discharge tomorrow - Viral hepatitis panel-revealed positive hepatitis C antibody today. We will discuss this with patient tomorrow. -Pain: Toradol and Morphine 2mg q4h prn -- Patient with hx of OUD in remission; discussed concerns for analgesia w/ morphine however patient comfortable for acute pain; continue use with caution Type 1 Diabetes (A1c 7.4%) -Normally wears insulin pump at home. However, left at home as he wanted to change the site. -Glycemic consultation appreciated while here given NPO (on admission), ill state, likely fluctuating insulin requirements Nausea with Vomiting -Intermittent bouts of R flank pain intermixed with nausea and vomiting that are not prandially related x 6mo -Patient does have h/o gastroparesis, which is noted -Suspect somehow related to the transaminitis outlined above -- but not exactly clear. Lower suspicion this is MICHELLE given infrequent and low %THC content in his reported cannabis use -Patient with continued intermittent nausea but no vomiting since hospital admission -Continue to monitor -Symptomatic management for now as above Code: Full code Dispo: Med-Surg FEN/GI: Per surgery DVT Prophylaxis: Frequent ambulation PT/OT: No Consults: GI, general surgery (2) Diabetes type 1, uncontrolled: (3) Hyperbilirubinemia: (4) Nausea & vomiting: Admission and Anticipated Discharge Date Admission Date: July 23, 2022 Supervising Physician Co-Signing Physician Notes I personally examined the patient and verified all gonzales points of history and exam, discussed case, and agree with decision making with Dr Marti Feeling okay. Mom present. Answered all questions the best my ability. For ERCP and cholecystectomy today. He is otherwise doing okay. Abdominal pain/nausea almost certainly due to biliary disease. Anticipate improvement once he recovers from procedures. Type 1 diabetes under reasonable control at this time. Subjective Patient seen at bedside this morning. No acute complaints overnight. Patient overall prepared to have surgery today. All questions answered appropriately. N.p.o. after midnight. No nausea this morning. No new complaints today. Review of Systems Review of Systems: Per HPI Physical Exam Constitutional: WD/WN, vitals as above Eyes: + anicteric sclerae Neck: trachea midline, no thyromegaly Respiratory: normal respiratory effort, lungs clear to auscultation Cardiovascular: RRR, no murmur, no edema Chest (Breasts): normal inspection/palpation of breasts Gastrointestinal (Abdomen): Inspection/Auscultation: abdomen normal to inspection and normal bowel sounds Percussion/Palpation: abdomen soft Musculoskeletal: Head/Neck/Chest: normocephalic and head atraumatic Skin: no rashes, warm and dry Neurologic: moves all extremities Psychiatric: A+Ox3, euthymic affect Results & Data Results & Data ([facility]) Vital Signs (Past 12 Hours) Vital Signs Temp Pulse Pulse Resp BP Pulse Ox O2 Del Method 07/27/22 16:45 36.4 C L 82 16 138/91 96 Room Air 07/27/22 16:21 36.4 C L 76 14 145/89 H 100 Room Air 07/27/22 16:00 36.4 C L 57 L 13 142/96 H 96 Room Air 07/27/22 15:50 36.4 C L 74 15 137/95 100 Room Air 07/27/22 15:40 61 8 L 149/97 H 100 Oxymask 07/27/22 15:30 61 17 144/93 H 100 Oxymask 07/27/22 15:20 60 9 L 153/99 H 100 Oxymask 07/27/22 15:11 36.0 C L 74 12 158/87 H 100 Oxymask 07/27/22 12:21 36.7 C 72 20 145/94 H 100 Room Air 07/27/22 10:52 36.9 C 76 16 133/87 99 Room Air 07/27/22 07:14 36.7 C 68 16 131/85 99 Room Air O2 Flow Rate 07/27/22 16:45 07/27/22 16:21 07/27/22 16:00 07/27/22 15:50 07/27/22 15:40 2 07/27/22 15:30 5 07/27/22 15:20 5 07/27/22 15:11 7 07/27/22 12:21 07/27/22 10:52 07/27/22 07:14 (1) Diabetes type 1, uncontrolled Glycemic state: with hyperglycemia Qualified Code(s): E10.65 - Type 1 diabetes mellitus with hyperglycemia
--- NOTE | 2022-07-27 19:13 | Billing Data ---
Date of Service July 27, 2022 Coding Level of Care Code 05392 SUB INP/OBS CARE
[2022-07-27] MEDS: MELATONIN 3 MG TAB PO SCH (21:22)
[2022-07-27] MEDS: LANTUS PER UNIT CHARGE SQ SCH (21:23)
[2022-07-28] MEDS: oxyCODONE HCL IR 5 MG TAB (IMMEDIATE RELEASE) PO PRN ×3 (01:14→10:40)
[2022-07-28] MEDS: LACTATED RINGER'S 1,000 ML IV SCH ×2 (02:36→12:46)
--- NOTE | 2022-07-28 08:00 | Surgery Progress Note ---
Date of Service July 28, 2022 Assessment & Plan (1) Cholelithiasis: (2) Transaminitis: Plan: POD#1 ERCP with GI and Lap steve with gen surg labs are pending this AM. vital signs are stable abdomen soft, expected tenderness to palpation. incisions c/d/i may advance diet as tolerates hep c antibody + Will continue to follow doing well. no nausea. back pain improved ok for d/c from our standpoint when ok with GI/primary service. Admission and Anticipated Discharge Date Admission Date: July 23, 2022 Subjective Patient is doing okay. Some soreness noted, helps when he receives pain medication. His umbilical incision hurts the most with movement. Otherwise tolerating clears. no n/v. hungry for more Physical Exam Physical Exam: awake/alert, no distress Gastrointestinal (Abdomen): Inspection/Auscultation: + abdominal surgical incision (c/d/i with skin glue); abdomen not distended Percussion/Palpation: + abdomen tender (expected casey incisional discomfort to palpation ) and abdomen soft Results & Data ([facility]) Vital Signs (Past 12 Hours) Vital Signs Temp Pulse Resp BP BP Pulse Ox O2 Del Method 07/28/22 07:45 36.7 C 72 16 128/82 99 Room Air 07/28/22 03:30 36.9 C 76 18 124/82 99 Room Air 07/27/22 21:27 36.6 C 80 16 143/91 H 99 Room Air PG Care Time/CCT Total # of Minutes Spent Total Time Spent with Patient: Total time spent is greater than 50% in coordination of care (as documented) at patient's floor/unit and/or counseling patient: Coding Level of Care Code None Diagnoses Cholelithiasis K80.20 Transaminitis R74.01
[2022-07-28] MEDS: CARBOHYDRATES FOR HYPOGLYCEMIA PO PRN (08:03)
[2022-07-28] MEDS: MoRPHine SULFATE 4 MG/ML 1 ML CARP\\VIAL IV PRN ×2 (08:33→13:17)
--- NOTE | 2022-07-28 08:33 | Gastroenterology Progress Note ---
Date of Service July 28, 2022 Assessment & Plan (1) Choledocholithiasis: Plan: Resolved w ERCP yesterday. No evidence of complications. (2) HCV (hepatitis C virus): Plan: ? HCV. IGG antibody was + on admission. Quantitative is pending and per lab should be resulted in 1-2 more days. Discussed w pt. 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 Plan 1. No GI contraindication to advancing diet. Would defer decisions regarding diet to surgery. 2. Would ask primary hospitalist/PCP and his regular gastroenterology group to f/u on HCV quantitative results when available and refer for tx if appropriate. Explained to pt that random drug screening w/o evidence of any current recreational drug use is a condition of insurance coverage for HCV medications. 3. No evidence of cholangitis, thus no clear indication for antibiotic needed for GI issues (would defer to surgical service). 4. No further GI procedures planned during this admission. 5. [facility] will sign off. Recall if any questions regarding yesterday's ERCP procedure. Admission and Anticipated Discharge Date Admission Date: July 23, 2022 Supervising Physician Co-Signing Physician Notes I performed a history and physical examination of the patient today, including specifically on physical exam - soft abdomen. I have discussed the patient's management with the advanced practitioner. Please refer to the nurse practitioner's note for the documented findings and plan of care. Subjective 27 yr old male admitted w el LFTs abd pain. Underwent ERCP and Lap cholecystectomy yesterday. ERCp w sphincterotomy, removal of sludge from the bile duct. This morning - had hypoglycemia improved w apple juice, tired, but feels better now. Doesn't c/o pain but when asked reports level 7 lower abd/periumbilical and also reports mild epigastric and mid back discomfort. Reports pain is improved compared to prior to procedure/surgery. No N/V. Review of Systems Review of Systems: ROS: Gen: + felt weak during low blood sugar episode this morning, otherise no weakness, fevers. Weight is stable. Eyes: No eye redness, or pain, no recent vision changes Resp: No SOB, no cough Cardio: No palpitations/irregular beats, no chest pain GI: As per HPI, otherwise (-). : Denies pain on urination Skin: No jaundice, itching or new rashes Physical Exam Constitutional: WD/WN, vitals as above Eyes: PERRL, conjunctivae normal, anicteric sclerae ENMT: external ear and nose normal, oropharynx normal Neck: trachea midline, no thyromegaly Respiratory: normal respiratory effort, lungs clear to auscultation Cardiovascular: RRR, no murmur, no edema Gastrointestinal (Abdomen): Inspection/Auscultation: abdomen normal to inspection and + hypoactive bowel sounds; abdomen not distended Percussion/Palpation: + abdomen tender (diffusely tender over entire abd, more so in the periumbilcal area) and abdomen soft; no splenomegaly incisions are healing well w/o any discharge or excessive redness. Musculoskeletal: no cyanosis or clubbing, extremities motor strength 5/5 Skin: no rashes, warm and dry Neurologic: PERRL, EOMI, accommodation nl, no face palsy, no dysarthria Psychiatric: A+Ox3, euthymic affect Lymphatic: no cervical or axillary lymphadenopathy Results & Data ([facility]) Vital Signs (Past 12 Hours) Vital Signs Temp Pulse Resp BP BP Pulse Ox O2 Del Method 07/28/22 07:45 36.7 C 72 16 128/82 99 Room Air 07/28/22 03:30 36.9 C 76 18 124/82 99 Room Air 07/27/22 21:27 36.6 C 80 16 143/91 H 99 Room Air Laboratory Results WBC 5, Hb 12, Hct 38, Plts 248, glucose 155. Diagnostic Findings ERCP yesterday w sphincterotomy, sweeping of the bile ducts for sludge.
[2022-07-28] MEDS: DEXTROSE 50% 50 ML SYRINGE IV PRN (08:47)
[2022-07-28] MEDS: LIDOCAINE 5% 1 PATCH TD SCH (09:00)
[2022-07-28] MEDS: INSULIN ASPART PER UNIT SC SCH ×2 (09:44→12:52)
[2022-07-28 09:46] LABS: Basophils # (auto) 0.03 K/uL (0-0.2); Basophils % (auto) 0.5 %; Eosinophils # (auto) 0.18 K/uL (0-0.50); Eosinophils % (auto) 2.8 %; Hematocrit (blood only) 37.1 % (42.0-52.0); Hemoglobin 12.3 g/dl (14.0-18.0); Immature Granulocytes # (auto) 0.04 K/uL (0.01-0.20); Immature Granulocytes % (auto) 0.6 %; Lymphocytes # (auto) 1.44 K/uL (1.2-3.4); Lymphocytes % (auto) 22.1 %; Mean Corpuscular Hemoglobin 30.3 pg (25.0-34.0); Mean Corpuscular Hgb Conc 33.2 g/dL (32.0-36.0); Mean Corpuscular Volume 91.4 fL (80.0-100.0); Mean Platelet Volume 9.9 fL (9.4-12.4); Monocytes # (auto) 0.58 K/uL (0.11-0.59); Monocytes % (auto) 8.9 %; Neutrophils # (auto) 4.24 K/uL (1.40-6.50); Neutrophils % (auto) 65.1 %; Platelet Count 253 K/uL (130-400); RDW Coefficient of Variation 12.7 % (11.5-14.5); RDW Standard Deviation 42.5 fL (36.4-46.3); Red Blood Count 4.06 M/uL (4.70-6.10); White Blood Count 6.51 K/ul (4.8-10.8)
[2022-07-28 10:21] LABS: Albumin Level 3.8 gm/dl (3.4-5.0); BUN Creatinine Ratio 7.5 (10-20); Bilirubin Direct 0.3 mg/dl (0-0.2); Bilirubin,Total 1.2 mg/dl (0.2-1.0); Calcium 9.2 mg/dl (8.5-10.1); Creatinine Clr Calc Pharmacy 158.3 ml/min; Est GFR (African American) 142.9 ml/min; Est GFR (Non-African American) 123.3 ml/min; Magnesium 1.5 mg/dl (1.7-2.4); Phosphorus 4.1 mg/dl (2.5-4.9); Potassium 3.5 mmol/L (3.5-5.1); Total Protein 6.3 gm/dl (6.0-8.3)
[2022-07-28 10:43] LABS: Hepatitis C Vira RNA (Log) PCR <1.18 NOT DETECTED Log IU/mL (NOT DETECTED); Hepatitis C Viral RNA by PCR <15 NOT DETECTED IU/mL (NOT DETECTED)
[2022-07-28] MEDS: MAGNESIUM SULFATE / D5W 1 GM/100 ML BAG IV SCH ×3 (11:00→14:54)
--- NOTE | 2022-07-28 11:19 | Pharmacy Report ---
Pharmacy Glycemic Short Note 2 - Date of Service July 28, 2022 - Glycemic Short BSG Results (Last 24 hours): 07/27/22 07/27/22 07/27/22 11:41 15:13 17:07 Glucose POC Glucose 125 H 170 H 167 H 07/27/22 07/28/22 07/28/22 20:31 08:00 08:01 Glucose POC Glucose 155 H 46 L* 46 L* 07/28/22 07/28/22 07/28/22 08:21 08:28 08:46 Glucose POC Glucose 47 L* 62 L* 61 L* 07/28/22 07/28/22 09:06 09:12 Glucose 134 H POC Glucose 128 H OUTPATIENT ANTIDIABETIC REGIMEN: * Insulin pump - up to 60 units/day ASSESSMENT: * Mr Tijerina is a 27 y/o T1DM who presents with transaminitis. * Patient is currently ordered a T1DM carb consistent diet. * Patient received 19 units of Lantus and 2 units of bolus insulin yesterday. * Patient experienced a low fasting BSGs today (46-62 mg/dL), however, RN reports patient is asymptomatic; bolus insulin parameters were loosened to CF: 35 and CR: 12. PLAN FOR INPATIENT GLYCEMIC CONTROL: * Basal insulin * Lantus 19 units HS * Bolus insulin * NovoLog per scale ACHS or Q6hrs while NPO * Goal Range: Low 110 mg/dL - High 150 mg/dL * Correction Factor: 35 mg/dL/unit * Nutritional / Prandial insulin per carb ratio of 1 unit per 12 grams CHO consumed
--- NOTE | 2022-07-28 16:09 | Discharge Summary ---
Date of Service July 28, 2022 Admission HPI Per Admitting Provider Luis is a 27-year-old man with history of insulin-dependent diabetes, cannabinoid hyperemesis syndrome, gastroparesis, who presented to the emergency department with a chief complaint of nausea and vomiting (5-10 episodes of emesis) since approximately 10 AM this morning. He also reported some right flank pain. In the ED, vitals were notable for tachycardia from 100s-120s. His labs were notable for a AST of 1127, ALT of 294, glucose of 239, bilirubin of 1.1, and alk phos of 159. Lipase was normal at 28. Gallbladder ultrasound showed gallbladder collapse with mild wall thickening, multiple adherent calculi, possible adenomyomatosis of the gallbladder. CT A/P showed mild distention of the gallbladder without definite gallbladder wall thickening. There was no evidence of bowel wall thickening or obstruction, nor was there evidence of hydronephrosis. He received IV Zofran, IV Reglan and IV morphine 4 mg x2 doses for his symptoms and started on a 2 L IV NSS bolus. On admission, he corroborates the HPI. He denies nausea, vomiting, abdominal pain, or back pain. Principal Diagnosis Acute cholecystitis, choledocholithiasis, transaminitis Discharge Exam Constitutional WD/WN, vitals as above Eyes + anicteric sclerae Neck trachea midline, no thyromegaly Respiratory normal respiratory effort, lungs clear to auscultation Cardiovascular RRR, no murmur, no edema Chest (Breasts) normal inspection/palpation of breasts Gastrointestinal (Abdomen) Percussion/Palpation: + abdomen tender and abdomen soft Surgical incisions noted from surgery yesterday. No erythema or purulent drainage. Musculoskeletal Head/Neck/Chest: normocephalic and head atraumatic Skin no rashes, warm and dry Neurologic moves all extremities Psychiatric A+Ox3, euthymic affect Discharge Data Allergies Allergy/AdvReac Type Severity Reaction Status Date / Time Cephalosporins Allergy Intermediate Hives Verified 07/22/22 21:15 Sulfa (Sulfonamide Allergy Intermediate Hives Verified 07/22/22 21:15 Antibiotics) azithromycin [From Zithromax] AdvReac Intermediate Hives Verified 07/22/22 21:15 Consultations 07/23/22 01:48 ED Decision to Admit Stat 07/23/22 01:51 Consult General Surgery Routine 07/23/22 03:31 Consult Gastroenterology Routine 07/26/22 13:46 Consult Gastroenterology Routine Procedures Performed Operation Date: 07/27/22 12:10 Actual Procedures p Endoscopic Retrograde Cholangiopancreatogram(Not Applicable) - Dax Leon MD s Laparoscopic Cholecystectomy, Repair of Incidental Enterotomy - Carlos Vigil, Ordered Studies 07/22/22 19:57 CT abd pelvis IV con only Stat 07/22/22 23:12 US gallbladder Urgent 07/25/22 16:06 US RUQ [US liver] Stat 07/26/22 09:07 MR MRCP Urgent 07/27/22 12:10 FL ERCP biliary ductal Routine Hospital Course (1) Transaminitis: 27-year-old man with type 1 diabetes, gastroparesis, and OUD in remission who presented with nausea and vomiting and admitted for management of acute transaminitis >1000s. Hepatocellular Transaminitis -Patient presented with n/v and R flank pain that has occurred intermittently over the last 6 months -Workup as follows: -No white count. CRP, ESR, procal pending. -AST predominant (1127 to 294), bilirubin 1.1, alk phos 159. Lipase wnl. -RUQ US demonstrating gallbladder distention with adenomyomatosis, no pericholecystic fluid. No biliary ductal dilation -CT-A/P: Mildly distended gallbladder. -Patient reports h/o OUD, with a history of intravenous drug use. - On admission, LFTs have more of a hepatocellular pattern than cholestatic. His LFTs were profoundly elevated despite no e/o biliary ductal dilation or gross inflammatory changes of the gallbladder (but distention noted). Suspect that some of his R flank pain may have some role in the last 6mo, but difficult to say. -Abdominal ultrasound and MRCP confirmative of gallstones as well as stone lodged in common bile duct. -Patient is status post ERCP and cholecystectomy on 07/27/2022. - Viral hepatitis panel-revealed positive hepatitis C antibody. Reflex to hepatitis C RNA quantitative. Please discuss at PCP follow-up regarding acute/chronic versus resolved hep C infection. Type 1 Diabetes (A1c 7.4%) -Normally wears insulin pump at home. However, left at home as he wanted to change the site. -Glycemic consultation appreciated while here given NPO (on admission), ill state, likely fluctuating insulin requirements Nausea with Vomiting -Secondary to combination of acute cholecystitis, choledocholithiasis, and possibly hepatitis C infection. -Eating well without difficulty at time of discharge. Consider resolved. Code: Full code Dispo: Med-Surg FEN/GI: Per surgery DVT Prophylaxis: Frequent ambulation PT/OT: No Consults: GI, general surgery (2) Diabetes type 1, uncontrolled: (3) Hyperbilirubinemia: (4) Nausea & vomiting: Total Time Total Time Spent Total Time Spent (In Minutes): 30 Discharge Plan Discharge Items Patient Disposition: Home - Self-Care Reason For Visit: VOMITING Discharge Diagnosis: laparoscopic cholecystectomy Activity: Per Instructions section Lifting: No more than 10 pounds Bathing Comment: may shower; no soaking in tubs/pools for a couple of weeks Exercise/Sports: Wait until after follow-up appointment Driving/Machine Use: no driving if taking any narcotics for pain Non-emergency contact: Primary Care Provider and Surgeon Call non-emergency contact if: you have any medication questions, your symptoms worsen, your pain is not controlled, your pain is concerning for you, you have a fever, your wound has increased redness, your wound has increased drainage and your wound pain has increased Follow-up/Referrals: Carlos Vigil DO [Surgeon] - (Please call to schedule follow up in clinic within 2 weeks 07/28/2022-PER [facility] AT [facility] THEY WILL CALL PATIENT WITH APPOINTMENT. AMI. 16:14.) Jermaine Marti DO [Resident] - PCP,NO [Primary Care Provider] - Diet: Low Fat Addtl Attending Provider Instructions: You came to the hospital for concern of nausea and vomiting. While you are here you had a litany of testing and lab work which ultimately revealed stones in your gallbladder and common bile duct. For this reason it was deemed that you should have a removal of your gallbladder which was performed yesterday on 07/27/2022. He tolerated this procedure well. Additionally the stone was tamika pawan from your common bile duct via ERCP. This will likely have a huge impact on the nausea and vomiting that you have been experiencing and should resolve your symptoms over the next few weeks. You will likely notice changes in your bowel movements with your gallbladder being removed which we discussed previously. If this were to happen, discussed this with your primary care provider or general surgeon and they will have recommendations regarding diet medications. No heavy lifting until follow-up with your surgeon. Pain control can be achieved with ibuprofen and Tylenol. Do not take more than 2400 mg of ibuprofen 24 hours or more than 3000 mg of Tylenol in 24 hours. In your lab work, we also tested for viral hepatitis. It was found out that you are positive for the hepatitis C antibody. This does not confirm that you have acute hepatitis. You may have been exposed to the virus at some point in your life in your body could have fought it off. The only way to determine this is a lab called hepatitis C RNA load. This lab has been sent off, however, it will not be returned by the time that you are discharged. Please discuss this with your primary care provider at follow-up. Since he did not have one in your chart I placed myself as your primary care provider (Dr. Jermaine Marti). We can discuss this at your follow-up and determine the next course of action. Again, do not lose sleep over this as this is a very treatable condition if it is acute/chronic hepatitis C. It has been a pleasure to be a part of your care and we wish you the best in both your health and your recovery. Pending Studies at Discharge: Yes Studies:: surgical pathology Stand-Alone Forms: My [facility], Smoking Cessation Medications and DC Order Prescriptions: Continued Baqsimi 3 mg/actuation spray,non-aerosol 3 mg INTNAS DIRECTED PRN (Reason: Hypoglycemia) Qty: 2 1RF (DME) Contour Next Test Strips Strip See Rx Instructions .Route Qty: 400 3RF Rx Instructions: Test blood sugar four times daily melatonin 5 mg Tablet 5 mg PO HS insulin aspart U-100 100 unit/mL solution 0 unit continuous subcutaneous infusion CONTINOUS Rx Instructions: 60 UNITS/DAY. Discharge Orders: Discharge Order (Routine); Ordered 07/28/22 Ordered By: Jermaine Mccarty/Other Patient Handouts: Cholecystectomy Admission Data Admit Date/Time: 07/23/22 03:31 Attending Provider: Jose Pat Admit Provider: Carmen Walter Primary Care Provider: PCP,NO Other Providers: Mansi Morgan ; Jeanmarie Valencia ; Tila Miranda ; Sarah Mccann ; Ellen Ortiz ; Radha Hendrix ; Nuno Rousseau ; Singh Stacy ; Shayne Bhakta ; Gracy Pope ; Ismael Stephens ; Marika Jensen ; Marissa Hager ; Annamarie Linares ; Elsie Paul ; Dax Leon ; Papi Nicolas ; Guy Ramachandran ; Ruth Carpio ; Catina Bowling Jr ; Kristi Blackburn ; Gisselle Navarro Matthew D. Other Interventions: Discharge Summary Assessment (RN) Last Done: 07/28/22 16:52 Supervising Physician Co-Signing Physician Notes I personally examined the patient and verified all gonzales points of history and exam, discussed case, and agree with decision making with Dr Kaia Borden under reasonable control. Eating regular food well. Would very much like to go home. Vitals noted, in general he is awake and alert pleasant no distress. HEENT normocephalic atraumatic mucous membranes moist. Breathing unlabored no accessory muscle use good effort. Cholecystitis/choledoch olithiasis (sludge)doing well post ERCP and cholecystectomy. Stable for home. Discussed postop pain control, normal expected recovery, etc. Type 1 diabetes under reasonable control at this time. Positive hep C antibodyfollow-up labs pendingwe will need outpatient follow-up for this.
--- NOTE | 2022-07-28 18:54 | Billing Data ---
Date of Service July 28, 2022 Coding Level of Care Code HOSP INP/OBS DISCH 30 MIN/LESS
== END 2022-07-28 17:12 | disposition home or self-care (01) ==
LOC: ED 17:27 → 3W 07-23 03:31 → SUATTDRO 07-23 03:31 → INTOOBSV 07-23 03:31 → 3W 07-23 04:54

== ENCOUNTER 2022-12-09 09:58 | Observation (INO) ==
[2022-12-09] MEDS ORDERED: ONDANSETRON INJ 2 MG/ML 2 ML VIAL IV STA ×2 (10:50→13:37)
[2022-12-09] MEDS ORDERED: KETOROLAC TROMETHAMINE 15 MG/ML VIAL IV STA (10:50)
[2022-12-09] MEDS ORDERED: PROMETHAZINE 12.5 MG/50.5 ML BAG IV STA ×2 (10:53→13:37)
[2022-12-09] MEDS ORDERED: SODIUM CHLORIDE 0.9% 1000ML 1,000 ML IV SCH (11:00)
--- NOTE | 2022-12-09 11:15 | Emergency Department Note ---
Impression & Plan Vomiting, Diffuse abdominal pain, Acute hyperglycemia ED Provider Note NAME: ANISH SINGH AGE: 27 SEX: M : 1995 ARRIVES VIA: Walk-In INFORMANT: [Patient] ED PROVIDER(S): [Scott Herrmann MD] CHIEF COMPLAINT: Vomiting HISTORY OF PRESENT ILLNESS: The patient is a 27-year-old male who presents with some abdominal cramping and vomiting for the last 5 hours. He cannot tolerate anything orally. The patient is unsure of his blood sugar readings lately. Patient has a history of diabetes, cyclic vomiting syndrome, gastroparesis and CHS. The patient has not had cough or congestion. He felt well yesterday. PMHx/PSHx: See Below SOCIAL HISTORY: See Below. PHYSICAL EXAM: GENERAL: Patient is in mild distress, actively vomiting. HEENT: No acute trauma, normocephalic atraumatic, mucous membranes moist, no nasal congestion. NECK: No stridor, no adenopathy, no meningismus, trachea is midline. LUNGS: Clear to auscultation bilaterally, no wheeze, no rhonchi, breath sounds equal. HEART: Without murmurs gallops or rubs, regular rate and rhythm. ABDOMEN: Soft, nontender, no abdominal distention, no peritonitis. EXTREMITIES: No cyanosis or edema, full range of motion of all the joints wi thout pain or difficulty, no signs for acute trauma. NEUROLOGIC: Oriented x 3, no acute motor or sensory deficits, no focal weakness. SKIN: No rash, no jaundice, no diaphoresis. DIFFERENTIAL DIAGNOSIS: Gastroparesis, dehydration, marijuana induced vomiting, small bowel obstruction, viral or foodborne illness, DKA, hyperglycemia, electrolyte imbalance, among others. EMERGENCY DEPARTMENT COURSE/PROCEDURES: Prior/Outside records reviewed: Recent endocrinology note. MEDICAL DECISION MAKING: There is a moderate leukocytosis, this could be consistent with infection or just his vomiting. No worrisome anemia. There is a normal platelet count. A slight anion gap of 14 was seen. No renal failure. Sugar returned high at 274. Alk phos was slightly elevated, the remaining liver enzymes were unremarkable. The patient appeared to be in a euthyroid state. COVID test returned negative. On exam, the patient was actively vomiting. There was no peritonitis. He was not febrile. The patient received IV saline, 1 L, he was given IV lactated Ringer's 1 L. He received IV Toradol, IV Pepcid, IV Zofran and IV Protonix. He was given IV Phenergan, a second dose of IV Zofran and IV Phenergan were given. He received IV Reglan and IV Benadryl. He was ordered for IV insulin, however, his repeat Accu-Chek showed a value of 150-the insulin was not given. Despite the above meds, the patient is still quite nauseated and cannot tolerate oral intake. He will require a hospital stay, further IV therapy/care. I suspect the patient's presentation is secondary to his gastroparesis. There certainly may be a component of CHS here as well. I spoke with the patient and case management, the on-call hospitalist was consulted. DISPOSITION: Patient's presentation and findings warrant a hospital stay. Past Med/Surg History Medical History Anemia Choledocholithiasis Cholelithiasis Cyclic vomiting syndrome Diabetes type 1, uncontrolled Gastroparesis Hematemesis Hepatitis History of opioid abuse Hypokalemia Hypomagnesemia Intractable cyclical vomiting with nausea Intractable vomiting with nausea Marijuana use Methadone dependence Nausea & vomiting Pneumomediastinum Soft tissue abscess Type I diabetes mellitus Surgical History Hx laparoscopic cholecystectomy (07/27/22) No pertinent past surgical history Family History Father Valvular heart disease Mother Hypothyroidism Other Cancer Diabetes Heart disease Hypertension Social History Smoking Status: Current some day smoker Tobacco Type: E-cigarettes / Vaping Cigarettes Per Day: 3; Second Hand Exposure: No; Do You Dip or Chew Tobacco: No; Hx Alcohol Use: No Hx Substance Use: No Preferred Language: Kittitian Communication Ability: Effective Picker Required: No Beliefs That Will Affect Care: None marital status: Single Current Living Situation: Alone current occupational status: unemployed How many Children do You have: 0 Feels Safe at Home: Yes Diet: diabetic during the past year weight has: decreased > 10 lbs Assistive Devices: None Allergies Allergies Allergy/AdvReac Type Severity Reaction Status Date / Time Cephalosporins Allergy Intermediate Hives Verified 12/09/22 14:59 Sulfa (Sulfonamide Allergy Intermediate Hives Verified 12/09/22 14:59 Antibiotics) azithromycin [From Zithromax] AdvReac Intermediate Hives Verified 12/09/22 14:59 Home Meds Home Medications Medication Instructions Recorded Confirmed melatonin 5 mg tablet 5 mg PO HS 05/15/20 12/09/22 insulin aspart U-100 100 unit/mL 0 unit continuous subcutaneous 12/09/22 12/09/22 subcutaneous solution infusion DAILY Previous Rx's Medication Instructions Recorded blood sugar diagnostic (Contour #400 ea 08/06/21 Next Test Strips) glucagon 3 mg/actuation nasal 3 mg intranasal DIRECTED PRN 11/02/21 spray (Baqsimi) Hypoglycemia #2 ea insulin glargine 100 unit/mL (3 45 unit (0.45 mL) subcut QAM #15 mL 11/10/22 mL) subcutaneous pen (Lantus Solostar U-100 Insulin) Results & Data (ED) Vital Signs Vital Signs - 24 hr 12/09/22 10:05 12/09/22 11:56 12/09/22 14:00 Temperature 36.5 C Temperature Source Oral Pulse Rate 115 H Pulse Rate [Left Finger] 78 95 H Pulse Rhythm Regular Pulse Rhythm [Left Finger] Regular Regular Pulse Strength Normal Pulse Strength [Left Finger] Normal Normal Respiratory Rate 16 18 18 Respiratory Effort / Characteristics Non-Labored Spontaneous Non-Labored Non-Labored Respiratory Depth Normal Normal Normal Respiratory Pattern Regular Regular Regular Blood Pressure 115/72 Blood Pressure [Right Arm] 113/77 152/91 H Blood Pressure Mean 86 Blood Pressure Mean [Right Arm] 89 111 Blood Pressure Position Sitting Blood Pressure Position [Right Arm] Lying Lying Pulse Oximetry 98 97 96 Oxygen Delivery Method Room Air Room Air Room Air Sepsis Recent Fever Within 48 Hours No Sepsis New/Unexplained Change in Mental Status No Sepsis Action Taken by Nursing No Action Required Home Medications Current Medication List: was personally reviewed by me Laboratory Data Attestation: I reviewed the patient's lab results. 12/09/22 11:26 12/09/22 11:26 Lab Results 12/09/22 12/09/22 12/09/22 Range/Units 11:26 11:26 11:26 WBC 15.71 H (4.8-10.8) K/ul RBC 4.68 L (4.70-6.10) M/uL Hgb 13.9 L (14.0-18.0) g/dl Hct 41.6 L (42.0-52.0) % MCV 88.9 (80.0-100.0) fL MCH 29.7 (25.0-34.0) pg MCHC 33.4 (32.0-36.0) g/dL RDW Std Deviation 41.3 (36.4-46.3) fL RDW Coeff of Carlos 12.6 (11.5-14.5) % Plt Count 306 (130-400) K/uL MPV 9.6 (9.4-12.4) fL Immature Gran % (Auto) 0.6 % Neut % (Auto) 86.4 % Lymph % (Auto) 8.7 % [place] % (Auto) 3.8 % Eos % (Auto) 0.2 % Baso % (Auto) 0.3 % Neut # (Auto) 13.59 H (1.40-6.50) K/uL Lymph # (Auto) 1.36 (1.2-3.4) K/uL [place] # (Auto) 0.59 (0.11-0.59) K/uL Eos # (Auto) 0.03 (0-0.50) K/uL Baso # (Auto) 0.05 (0-0.2) K/uL Immature Gran # (Auto) 0.09 (0.01-0.20) K/uL Sodium 141 (136-145) mmol/L Potassium 3.5 (3.5-5.1) mmol/L Chloride 99 (98-107) mmol/L Carbon Dioxide 28 (21-32) mmol/L Anion Gap 14 H (3-11) BUN 15 (6-23) mg/dl Creatinine 0.88 (0.6-1.4) mg/dl Est Cr Clr Drug Dosing 133.0 ml/min Est GFR ( Amer) 137.4 ml/min Est GFR (Non-Af Amer) 118.6 ml/min BUN/Creatinine Ratio 17.0 (10-20) Glucose 274 H (70-99(Fasting)) mg/dl POC Glucose (70-99) mg/dl Calcium 9.8 (8.6-10.3) mg/dl Magnesium 1.7 (1.7-2.4) mg/dl Total Bilirubin 0.6 (0.2-1.0) mg/dl AST 18 (13-39) U/L ALT 16 (7-52) U/L Alkaline Phosphatase 122 H (34-104) U/L Total Protein 7.9 (6.0-8.3) gm/dl Albumin 4.5 (3.4-5.0) gm/dl Globulin 3.4 (2.5-4.0) gm/dl Albumin/Globulin Ratio 1.3 (0.9-2) TSH 0.593 (0.300-4.500) uIu/ml SARS-CoV-2, RNA, NAAT (NEGATIVE) 12/09/22 12/09/22 Range/Units 11:50 Unknown WBC (4.8-10.8) K/ul RBC (4.70-6.10) M/uL Hgb (14.0-18.0) g/dl Hct (42.0-52.0) % MCV (80.0-100.0) fL MCH (25.0-34.0) pg MCHC (32.0-36.0) g/dL RDW Std Deviation (36.4-46.3) fL RDW Coeff of Carlos (11.5-14.5) % Plt Count (130-400) K/uL MPV (9.4-12.4) fL Immature Gran % (Auto) % Neut % (Auto) % Lymph % (Auto) % [place] % (Auto) % Eos % (Auto) % Baso % (Auto) % Neut # (Auto) (1.40-6.50) K/uL Lymph # (Auto) (1.2-3.4) K/uL [place] # (Auto) (0.11-0.59) K/uL Eos # (Auto) (0-0.50) K/uL Baso # (Auto) (0-0.2) K/uL Immature Gran # (Auto) (0.01-0.20) K/uL Sodium (136-145) mmol/L Potassium (3.5-5.1) mmol/L Chloride (98-107) mmol/L Carbon Dioxide (21-32) mmol/L Anion Gap (3-11) BUN (6-23) mg/dl Creatinine (0.6-1.4) mg/dl Est Cr Clr Drug Dosing ml/min Est GFR ( Amer) ml/min Est GFR (Non-Af Amer) ml/min BUN/Creatinine Ratio (10-20) Glucose (70-99(Fasting)) mg/dl POC Glucose 191 H (70-99) mg/dl Calcium (8.6-10.3) mg/dl Magnesium (1.7-2.4) mg/dl Total Bilirubin (0.2-1.0) mg/dl AST (13-39) U/L ALT (7-52) U/L Alkaline Phosphatase (34-104) U/L Total Protein (6.0-8.3) gm/dl Albumin (3.4-5.0) gm/dl Globulin (2.5-4.0) gm/dl Albumin/Globulin Ratio (0.9-2) TSH (0.300-4.500) uIu/ml SARS-CoV-2, RNA, NAAT NEGATIVE (NEGATIVE) Administered Medications Discontinued Medications Sodium Chloride (Nss 1000ml) 1,000 mls @ 999 mls/hr IV .Q1H1M YUE Stop: 12/09/22 12:00 Last Infusion: 12/09/22 12:21 Dose: 0 mls/hr Documented By: Admin: 12/09/22 11:19 Dose: 999 mls/hr Documented By: KRISTINA Promethazine HCl (Phenergan) 12.5 mg in 50.5 mls @ 202 mls/hr IV NOW STA Stop: 12/09/22 11:07 Last Infusion: 12/09/22 11:44 Dose: 0 mls/hr Documented By: Admin: 12/09/22 11:19 Dose: 202 mls/hr Documented By: KRISTINA Lactated Ringer's (Lr) 1,000 mls @ 999 mls/hr IV .Q1H1M ONE Stop: 12/09/22 13:25 Last Infusion: 12/09/22 14:37 Dose: 0 mls/hr Documented By: Admin: 12/09/22 12:40 Dose: 999 mls/hr Documented By: SHELLI Famotidine (Pepcid 20mg Iv Push) 20 mg in 5 mls @ 2.5 mls/min IV NOW STA Stop: 12/09/22 13:38 Last Admin: 12/09/22 14:12 Dose: 2.5 mls/min Documented By: SHELLI Promethazine HCl (Phenergan) 12.5 mg in 50.5 mls @ 202 mls/hr IV NOW STA Stop: 12/09/22 13:51 Last Infusion: 12/09/22 14:38 Dose: 0 mls/hr Documented By: Admin: 12/09/22 14:12 Dose: 202 mls/hr Documented By: SHELLI Pantoprazole Sodium 40 mg/ (Syringe) 10 mls @ 5 mls/min IV NOW ONE Stop: 12/09/22 13:38 Last Admin: 12/09/22 14:42 Dose: 5 mls/min Documented By: VINNIE Ketorolac Tromethamine (Ketorolac Tromethamine 15 Mg/Ml Vial) 15 mg IV NOW STA Stop: 12/09/22 10:51 Last Admin: 12/09/22 11:19 Dose: 15 mg Documented By: KRISTINA Ondansetron HCl (Ondansetron Inj 2 Mg/Ml 2 Ml Vial) 4 mg IV NOW STA Stop: 12/09/22 10:51 Last Admin: 12/09/22 11:19 Dose: 4 mg Documented By: KRISTINA Ondansetron HCl (Ondansetron Inj 2 Mg/Ml 2 Ml Vial) 4 mg IV NOW STA Stop: 12/09/22 13:38 Last Admin: 12/09/22 14:12 Dose: 4 mg Documented By: SHELLI Discharge Plan Visit Data Chief Complaint: Vomiting Stated Complaint: vomiting, nausea ED Provider: Scott Herrmann Discharge Problem: Vomiting, Diffuse abdominal pain, Acute hyperglycemia Patient Disposition: Admitted As Inpatient Condition: Fair Forms Stand Alone Forms: My [facility] Prescriptions Prescriptions: No Action Baqsimi 3 mg/actuation spray,non-aerosol 3 mg INTNAS DIRECTED PRN (Reason: Hypoglycemia) Qty: 2 1RF (DME) Contour Next Test Strips Strip See Rx Instructions .Route Qty: 400 3RF Rx Instructions: Test blood sugar four times daily insulin glargine [Lantus Solostar U-100 Insulin] 100 unit/mL (3 mL) insulin pen 45 unit subcut QAM Qty: 15 0RF Rx Instructions: Inject 45 units into the abdomen once daily. melatonin 5 mg Tablet 5 mg PO HS insulin aspart U-100 100 unit/mL solution 0 unit continuous subcutaneous infusion DAILY MDD 60 UNITS/DAILY Referrals Referrals: Oneil Tinajero MD [Primary Care Provider] -
[2022-12-09 12:04] LABS: Basophils # (auto) 0.05 K/uL (0-0.2); Basophils % (auto) 0.3 %; Eosinophils # (auto) 0.03 K/uL (0-0.50); Eosinophils % (auto) 0.2 %; Hematocrit (blood only) 41.6 % (42.0-52.0); Hemoglobin 13.9 g/dl (14.0-18.0); Immature Granulocytes # (auto) 0.09 K/uL (0.01-0.20); Immature Granulocytes % (auto) 0.6 %; Lymphocytes # (auto) 1.36 K/uL (1.2-3.4); Lymphocytes % (auto) 8.7 %; Mean Corpuscular Hemoglobin 29.7 pg (25.0-34.0); Mean Corpuscular Hgb Conc 33.4 g/dL (32.0-36.0); Mean Corpuscular Volume 88.9 fL (80.0-100.0); Mean Platelet Volume 9.6 fL (9.4-12.4); Monocytes # (auto) 0.59 K/uL (0.11-0.59); Monocytes % (auto) 3.8 %; Neutrophils # (auto) 13.59 K/uL (1.40-6.50); Neutrophils % (auto) 86.4 %; Platelet Count 306 K/uL (130-400); RDW Coefficient of Variation 12.6 % (11.5-14.5); RDW Standard Deviation 41.3 fL (36.4-46.3); Red Blood Count 4.68 M/uL (4.70-6.10); White Blood Count 15.71 K/ul (4.8-10.8)
[2022-12-09 12:20] LABS: Albumin Globulin Ratio 1.3 (0.9-2); Albumin Level 4.5 gm/dl (3.4-5.0); Bilirubin,Total 0.6 mg/dl (0.2-1.0); Calcium 9.8 mg/dl (8.6-10.3); Est GFR (African American) 137.4 ml/min; Est GFR (Non-African American) 118.6 ml/min; Globulin 3.4 gm/dl (2.5-4.0); Magnesium 1.7 mg/dl (1.7-2.4); Potassium 3.5 mmol/L (3.5-5.1); Total Protein 7.9 gm/dl (6.0-8.3)
[2022-12-09] MEDS ORDERED: LACTATED RINGER'S 1,000 ML IV ONE (12:25)
[2022-12-09] MEDS ORDERED: FAMOTIDINE 20MG IV PUSH 20 MG/5 ML SYR IV STA (13:37)
[2022-12-09] MEDS ORDERED: PANTOprazole 40 MG in SYRINGE 0 ML IV ONE (13:37)
[2022-12-09] MEDS ORDERED: NovoLIN-R INSULIN PER UNIT CHARGE IV STA (14:41)
[2022-12-09] MEDS ORDERED: diphenhydrAMINE 50 MG/ML VIAL IV STA (15:21)
[2022-12-09] MEDS ORDERED: METOCLOPRAMIDE HCL INJ 5 MG/ML 2 ML VIAL IV ONE (15:21)
--- NOTE | 2022-12-09 16:40 | History & Physical Report ---
Date of Service December 09, 2022 Assessment & Plan (1) Intractable vomiting with nausea: Plan: Multiple episodes of the same previously thought to be due to gastroparesis vs. cannabis hyperemesis with multiple episodes of DKA complicating. Last reports cannabis use last week although notably all prior drug screens with positive marijuana samples - will add to sample already in lab as a negative sample would warrant alternative diagnosis to be consider higher One prior episode in June associated with gallstones and choledocholithiasis - this is the first episode since then but with normal LFTs I have a low suspicion of biliary sludge causing his current illness. He is sufficiently far out from his surgery that imaging deferred given repeated CTs in the past but if persistent consider imaging. He reports most effective anti-nausea medications as Phenergan and metoclopramide therefore will prescribe these as needed Continue IV fluids with LR @ 125ml/hr overnight (2) Diabetes mellitus type 1 with complications: Plan: Multiple previous episodes of DKA however appears to avoided this with current illness Had Lantus 45 units this morning. Will defer ongoing dosing to pharmacy glycemic control Novolog based on basal dosing of Lantus: --Goal BSG Range: Low 110 mg/dL, High 140 mg/dL --Correction Factor: 20 mg/dL/unit --Carbohydrate ratio = 6 g/unit --BSGs ACHS if eating, q6h if npo HbA1C 7.4 in June, will repeat with AM labs Plan VTE Prophylaxis - low risk Diet - clear liquid, T1DM Disposition - observation status to med/surg Admission and Anticipated Discharge Date Admission Date: December 09, 2022 History of Present Illness Chief Complaint: Nausea and vomiting Primary Care Provider: Oneil Tinajero MD Luis Tijerina is a 27 year old male who presents to the ER with nausea, vomiting and abdominal pain. He reports this feels like all his previous episodes previously thought to be cannabis hyperemesis vs. gastroparesis but he also feels this is similar when he had choledocholithiasis in June. On review of ERCP he did not have a stent placed a that time. He continues to use cannabis but reports last using this 1 week ago. Abrupt onset nausea and vomiting starting at 6am this morning. He notes associated right upper quadrant abdominal pain with no radiation. This is his first episode following cholecystectomy. Allergies Allergy/AdvReac Type Severity Reaction Status Date / Time Cephalosporins Allergy Intermediate Hives Verified 12/09/22 14:59 Sulfa (Sulfonamide Allergy Intermediate Hives Verified 12/09/22 14:59 Antibiotics) azithromycin [From Zithromax] AdvReac Intermediate Hives Verified 12/09/22 14:59 Home Medications Medication Instructions Recorded Confirmed Type melatonin 5 mg tablet 5 mg PO HS 05/15/20 12/09/22 History blood sugar diagnostic (Contour #400 ea 08/06/21 11/10/22 Rx Next Test Strips) glucagon 3 mg/actuation nasal 3 mg intranasal DIRECTED PRN 11/02/21 12/09/22 Rx spray (Baqsimi) Hypoglycemia #2 ea insulin glargine 100 unit/mL (3 45 unit (0.45 mL) subcut QAM #15 mL 11/10/22 12/09/22 Rx mL) subcutaneous pen (Lantus Solostar U-100 Insulin) insulin aspart U-100 100 unit/mL 0 unit continuous subcutaneous 12/09/22 12/09/22 History subcutaneous solution infusion DAILY Past Med/Surg History Medical History (Updated 12/09/22 @ 22:03 by Jon Miranda MD) Anemia Choledocholithiasis Cholelithiasis Cyclic vomiting syndrome Diabetes type 1, uncontrolled Gastroparesis Hematemesis Hepatitis History of opioid abuse Hypokalemia Hypomagnesemia Intractable cyclical vomiting with nausea Intractable vomiting with nausea Marijuana use Methadone dependence Nausea & vomiting Pneumomediastinum Soft tissue abscess Type I diabetes mellitus Surgical History Hx laparoscopic cholecystectomy (07/27/22) Laparoscopic Cholecystectomy, Repair of Incidental Enterotomy - Carlos Vigil DO No pertinent past surgical history Family History Father Valvular heart disease Mother Hypothyroidism Other Cancer Diabetes Heart disease Hypertension Social History Smoking Status: Current some day smoker Tobacco Type: E-cigarettes / Vaping Cigarettes Per Day: 3; Second Hand Exposure: No; Do You Dip or Chew Tobacco: No; Hx Alcohol Use: No Hx Substance Use: No Preferred Language: Mongolian Communication Ability: Effective Assistant Maintenance Manager Required: No Beliefs That Will Affect Care: None marital status: Single Current Living Situation: Alone current occupational status: unemployed How many Children do You have: 0 Feels Safe at Home: Yes Diet: diabetic during the past year weight has: decreased > 10 lbs Assistive Devices: None Review of Systems Review of Systems: All systems reviewed & are unremarkable except as noted in HPI & below Physical Exam Constitutional: well developed and + acute distress (nausea); + not well nourished ENMT: external ear and nose normal, oropharynx normal Respiratory: normal respiratory effort, lungs clear to auscultation Cardiovascular: RRR, no murmur, no edema Gastrointestinal (Abdomen): Inspection/Auscultation: abdomen normal to inspection; abdomen not distended Percussion/Palpation: + abdomen tender (RUQ/epigastric) and abdomen soft; no guarding and abdomen not rigid Musculoskeletal: no cyanosis or clubbing, extremities motor strength 5/5 Skin: no rashes, warm and dry Neurologic: moves all extremities and awake; not confused Psychiatric: A+Ox3, euthymic affect Results & Data Results & Data Vital Signs (Past 12 Hours) Vital Signs Temp Pulse Pulse Resp BP BP Pulse Ox 12/09/22 14:00 95 H 18 152/91 H 96 12/09/22 11:56 78 18 113/77 97 12/09/22 10:05 36.5 C 115 H 16 115/72 98 O2 Del Method 12/09/22 14:00 Room Air 12/09/22 11:56 Room Air 12/09/22 10:05 Room Air Laboratory Results Abnormal lab results 12/09/22 12/09/22 12/09/22 Range/Units 11:26 11:26 11:50 WBC 15.71 H (4.8-10.8) K/ul RBC 4.68 L (4.70-6.10) M/uL Hgb 13.9 L (14.0-18.0) g/dl Hct 41.6 L (42.0-52.0) % Neut # (Auto) 13.59 H (1.40-6.50) K/uL Anion Gap 14 H (3-11) Glucose 274 H (70-99(Fasting)) mg/dl POC Glucose 191 H (70-99) mg/dl Alkaline Phosphatase 122 H (34-104) U/L Ur Specific [place] (1.000-1.030) Urine Protein (Negative) Urine Glucose (UA) (Negative) Urine Ketones (Negative) U Epithel Cells (Auto) (0-5) /[facility] 12/09/22 12/09/22 12/09/22 Range/Units 15:48 21:40 21:42 WBC (4.8-10.8) K/ul RBC (4.70-6.10) M/uL Hgb (14.0-18.0) g/dl Hct (42.0-52.0) % Neut # (Auto) (1.40-6.50) K/uL Anion Gap (3-11) Glucose (70-99(Fasting)) mg/dl POC Glucose 152 H 372 H* 423 H* (70-99) mg/dl Alkaline Phosphatase (34-104) U/L Ur Specific [place] (1.000-1.030) Urine Protein (Negative) Urine Glucose (UA) (Negative) Urine Ketones (Negative) U Epithel Cells (Auto) (0-5) /[facility] 12/09/22 12/10/22 12/10/22 Range/Units 21:44 01:10 04:09 WBC (4.8-10.8) K/ul RBC (4.70-6.10) M/uL Hgb (14.0-18.0) g/dl Hct (42.0-52.0) % Neut # (Auto) (1.40-6.50) K/uL Anion Gap (3-11) Glucose (70-99(Fasting)) mg/dl POC Glucose 381 H* 113 H 151 H (70-99) mg/dl Alkaline Phosphatase (34-104) U/L Ur Specific [place] (1.000-1.030) Urine Protein (Negative) Urine Glucose (UA) (Negative) Urine Ketones (Negative) U Epithel Cells (Auto) (0-5) /[facility] 12/10/22 Range/Units 06:20 WBC (4.8-10.8) K/ul RBC (4.70-6.10) M/uL Hgb (14.0-18.0) g/dl Hct (42.0-52.0) % Neut # (Auto) (1.40-6.50) K/uL Anion Gap (3-11) Glucose (70-99(Fasting)) mg/dl POC Glucose (70-99) mg/dl Alkaline Phosphatase (34-104) U/L Ur Specific [place] 1.034 H (1.000-1.030) Urine Protein 2+ H (Negative) Urine Glucose (UA) 3+ H (Negative) Urine Ketones 3+ H (Negative) U Epithel Cells (Auto) 5-10 H (0-5) /lpf Medications Administered ER Medications Given: NSS 1L bolus Ondansetron 4mg IV Toradol 15mg IV Promethazine v12.5mg IV LR 1L bolus Ondansetron 4mg IV Famotidine 20mg IV Promethazine 12,5mg IV Pantoprazole 40mg IV Metoclopramide 5mg IV Diphenhydramine 12.5mg IV Code Status & VTE Plan Code Status Full VTE Prophylaxis Plan VTE Prophylaxis will be ordered: No Reason for no VTE drug order: Treatment not indicated PG Care Time/CCT Total # of Minutes Spent Total Time Spent with Patient: Total time spent is greater than 50% in coordination of care (as documented) at patient's floor/unit and/or counseling patient: Coding Level of Care Code 79239 INT INP/OBS CARE 255MIN Diagnoses Intractable vomiting with nausea R11.2 Diabetes mellitus type 1 with complications E10.8
[2022-12-09] MEDS ORDERED: PROMETHAZINE HCL 25 MG in SODIUM CHLORIDE 0.9% 50 ML IV PRN (16:55)
[2022-12-09] MEDS ORDERED: METOCLOPRAMIDE HCL INJ 5 MG/ML 2 ML VIAL IV PRN (16:55)
[2022-12-09] MEDS: LACTATED RINGER'S 1,000 ML IV SCH (18:23)
[2022-12-09] MEDS ORDERED: MELATONIN 3 MG TAB PO SCH (21:00)
[2022-12-09] MEDS ORDERED: GLUCAGON FOR INJ 1 MG VIAL SQ PRN (21:16)
[2022-12-09] MEDS ORDERED: GLUCOSE 10 TAB/TUBE PO PRN (21:16)
[2022-12-09] MEDS ORDERED: GLUCOSE 40% GEL 15 GM TUBE PO PRN (21:16)
[2022-12-09] MEDS ORDERED: PHARMACY GLYCEMIC MGMT CONSULT PRN (21:16)
[2022-12-09] MEDS ORDERED: CARBOHYDRATES FOR HYPOGLYCEMIA PO PRN (21:16)
[2022-12-09] MEDS ORDERED: DEXTROSE 50% 50 ML SYRINGE IV PRN (21:16)
[2022-12-09] MEDS ORDERED: LANTUS PER UNIT CHARGE SC SCH (22:00)
[2022-12-09] MEDS ORDERED: LANTUS PER UNIT CHARGE SC ONE (22:30)
[2022-12-09] MEDS: INSULIN ASPART PER UNIT CHARGE SC SCH (23:01)
[2022-12-10] MEDS: INSULIN ASPART PER UNIT CHARGE SC SCH ×4 (01:16→12:44)
[2022-12-10] MEDS: LACTATED RINGER'S 1,000 ML IV SCH ×2 (02:21→15:24)
[2022-12-10 06:50] LABS: Appearance Urine Clear (Clear); Bacteria Urine Automated Negative (Negative); Bilirubin Urine Negative (Negative); Blood Urine Negative (Negative); Color Urine Yellow; Glucose Urine UA 3+ (Negative); Ketones Urine 3+ (Negative); Leukocyte Esterase Urine Negative (Negative); Nitrite Urine Negative (Negative); Protein Urine 2+ (Negative); RBC Urine Automated 0-4 /hpf (0-4); Specific Gravity Urine 1.034 (1.000-1.030); Urobilinogen Urine Negative (Negative)
[2022-12-10 06:53] LABS: Basophils # (auto) 0.05 K/uL (0-0.2); Basophils % (auto) 0.4 %; Eosinophils # (auto) 0.08 K/uL (0-0.50); Eosinophils % (auto) 0.7 %; Hematocrit (blood only) 36.3 % (42.0-52.0); Hemoglobin 11.9 g/dl (14.0-18.0); Immature Granulocytes # (auto) 0.06 K/uL (0.01-0.20); Immature Granulocytes % (auto) 0.5 %; Lymphocytes # (auto) 2.75 K/uL (1.2-3.4); Lymphocytes % (auto) 22.5 %; Mean Corpuscular Hgb Conc 32.8 g/dL (32.0-36.0); Mean Corpuscular Volume 91.4 fL (80.0-100.0); Mean Platelet Volume 9.3 fL (9.4-12.4); Monocytes # (auto) 0.94 K/uL (0.11-0.59); Monocytes % (auto) 7.7 %; Neutrophils # (auto) 8.32 K/uL (1.40-6.50); Neutrophils % (auto) 68.2 %; Platelet Count 247 K/uL (130-400); RDW Coefficient of Variation 12.6 % (11.5-14.5); RDW Standard Deviation 41.9 fL (36.4-46.3); Red Blood Count 3.97 M/uL (4.70-6.10)
[2022-12-10 07:08] LABS: Amphetamines+Metham, Urine Neg (Neg); Barbiturates, Urine Neg (Neg); Benzodiazepine, Urine Neg (Neg); Cocaine, Urine Pos (Neg); MDMA (Ecstacy), Urine Neg (Neg); Methadone, Urine Neg (Neg); Opiate, Urine Neg (Neg); Phencyclidine, Urine Neg (Neg)
[2022-12-10 07:19] LABS: Albumin Globulin Ratio 1.4 (0.9-2); Albumin Level 3.6 gm/dl (3.4-5.0); BUN Creatinine Ratio 16.1 (10-20); Bilirubin,Total 0.5 mg/dl (0.2-1.0); Calcium 8.9 mg/dl (8.6-10.3); Creatinine Clr Calc Pharmacy 139.9 ml/min; Est GFR (African American) 130.9 ml/min; Est GFR (Non-African American) 112.9 ml/min; Globulin 2.5 gm/dl (2.5-4.0); Magnesium 1.6 mg/dl (1.7-2.4); Phosphorus 3.3 mg/dl (2.5-4.9); Potassium 3.4 mmol/L (3.5-5.1); Total Protein 6.1 gm/dl (6.0-8.3)
[2022-12-10 07:38] LABS: Estimated Average Glucose 189 mg/dl; Hemoglobin A1C 8.2 % (4.5-5.6)
[2022-12-10] MEDS ORDERED: POTASSIUM CHLORIDE CRTAB 20 MEQ TABCR PO STA (08:07)
--- NOTE | 2022-12-10 08:10 | Hospitalist Progress Note ---
Date of Service December 10, 2022 Assessment & Plan (1) Intractable vomiting with nausea: Plan: Multiple episodes of the same previously thought to be due to gastroparesis vs. cannabis hyperemesis with multiple episodes of DKA complicating. Last reports cannabis use last week although notably all prior drug screens with positive marijuana samples - will add to sample already in lab as a negative sample would warrant alternative diagnosis to be consider higher One prior episode in June associated with gallstones and choledocholithiasis - this is the first episode since then but with normal LFTs I have a low suspicion of biliary sludge causing his current illness. He is sufficiently far out from his surgery that imaging deferred given repeated CTs in the past but if persistent consider imaging. He reports most effective anti-nausea medications as Phenergan and metoclopramide therefore will prescribe these as needed Continue IV fluids with LR @ 125ml/hr overnight 12/10 UDS + marijuana and cocaine Labs w/ Mag 1.6/K 3.4 -- electrolyte replacement ordered WBC trending down (2) Diabetes mellitus type 1 with complications: Plan: Multiple previous episodes of DKA however appears to avoided this with current illness Had Lantus 45 units this morning. Will defer ongoing dosing to pharmacy glycemic control Novolog based on basal dosing of Lantus: --Goal BSG Range: Low 110 mg/dL, High 140 mg/dL --Correction Factor: 20 mg/dL/unit --Carbohydrate ratio = 6 g/unit --BSGs ACHS if eating, q6h if npo HbA1C 7.4 in June, will repeat with AM labs Plan VTE Prophylaxis - low risk Diet - clear liquid, T1DM Disposition - observation status to med/surg Admission and Anticipated Discharge Date Admission Date: December 09, 2022 Results & Data Results & Data Vital Signs (Past 12 Hours) Vital Signs Temp Pulse Resp BP Pulse Ox O2 Del Method 12/10/22 07:25 36.8 C 87 16 106/72 97 Room Air 12/09/22 21:48 36.8 C 110 H 16 118/71 98 Room Air PG Care Time/CCT Total # of Minutes Spent Total Time Spent with Patient: Total time spent is greater than 50% in coordination of care (as documented) at patient's floor/unit and/or counseling patient: Coding Diagnoses Intractable vomiting with nausea R11.2 Diabetes mellitus type 1 with complications E10.8
[2022-12-10] MEDS: MAGNESIUM SULFATE / D5W 1 GM/100 ML BAG IV SCH ×2 (08:44→10:51)
[2022-12-10] MEDS ORDERED: LANTUS PER UNIT CHARGE SC SCH (09:00)
[2022-12-10] MEDS ORDERED: FAMOTIDINE 20 MG in SYRINGE 3 ML IV SCH (09:00)
--- NOTE | 2022-12-10 11:06 | Discharge Summary ---
Date of Service December 10, 2022 Admission HPI Per Admitting Provider Luis Tijerina is a 27 year old male who presents to the ER with nausea, vomiting and abdominal pain. He reports this feels like all his previous episodes previously thought to be cannabis hyperemesis vs. gastroparesis but he also feels this is similar when he had choledocholithiasis in June. On review of ERCP he did not have a stent placed a that time. He continues to use cannabis but reports last using this 1 week ago. Abrupt onset nausea and vomiting starting at 6am this morning. He notes associated right upper quadrant abdominal pain with no radiation. This is his first episode following cholecystectomy. Admission Exam Per Admitting Provider Constitutional: well developed and + acute distress (nausea); + not well nourished ENMT: external ear and nose normal, oropharynx normal Respiratory: normal respiratory effort, lungs clear to auscultation Cardiovascular: RRR, no murmur, no edema Gastrointestinal (Abdomen): Inspection/Auscultation: abdomen normal to inspec tion; abdomen not distended Percussion/Palpation: + abdomen tender (RUQ/epigastric) and abdomen soft; no guarding and abdomen not rigid Musculoskeletal: no cyanosis or clubbing, extremities motor strength 5/5 Skin: no rashes, warm and dry Neurologic: moves all extremities and awake; not confused Psychiatric: A+Ox3, euthymic affect Principal Diagnosis Intractable nausea/vomiting Discharge Exam General WD/WN male resting in bed, NAD HEENT: head normocephalic, atraumatic, mmm, trachea midline Resp: CTA, no w/c/r/, on room air CV: RRR, no significant m/r/g GI : +BS, soft/NT : no mack MSK/Neuro: no focal deficit, no slurred speech, able to follow commands Psych: AOx3, cooperative, wanting to go home Discharge Data Allergies Allergy/AdvReac Type Severity Reaction Status Date / Time Cephalosporins Allergy Intermediate Hives Verified 12/09/22 14:59 Sulfa (Sulfonamide Allergy Intermediate Hives Verified 12/09/22 14:59 Antibiotics) azithromycin [From Zithromax] AdvReac Intermediate Hives Verified 12/09/22 14:59 Consultations 12/09/22 15:23 ED Decision to Admit Stat Hospital Course (1) Intractable vomiting with nausea: Multiple episodes of the same previously thought to be due to gastroparesis vs. cannabis hyperemesis with multiple episodes of DKA complicating. Last reports cannabis use last week although notably all prior drug screens with positive marijuana samples - One prior episode in June associated with gallstones and choledocholithiasis - this is the first episode since then but with normal LFTs I have a low suspicion of biliary sludge causing his current illness. He is sufficiently far out from his surgery that imaging deferred given repeated CTs in the past but if persistent consider imaging. He reported most effective anti-nausea medications as Phenergan and metoclopramide therefore will prescribe these as needed -- states has at home, no need for rx at discharge Continued IV fluids with LR @ 125ml/hr overnight and diet advanced without issue WBC trending down on repeat, afebrile. Suspect reactive from n/v UDS + positive for marijuana/cocaine -- recs to avoid/abstain given ongoing issues/repeat admissions Electrolyte replacement for hypomag/hypoK prior to discharge and patient doing well and wanting to go home after completed Recommend outpatient follow up/cessation marijuana (2) Diabetes mellitus type 1 with complications: Multiple previous episodes of DKA however appears to avoided this with current illness No anion gap/issues while inpatient, BSgs acceptable A1c 7.6 in June, slightly higher at 8.2 Outpatient f/u recommended Total Time Total Time Spent Total Time Spent (In Minutes): 31 Discharge Plan Discharge Items Patient Disposition: Home - Self-Care Reason For Visit: INTRACTABLE NAUSEA AND VOMITING Discharge Diagnosis: Nausea and vomiting Condition on Discharge: Fair Activity: As commented below Non-emergency contact: Primary Care Provider Call non-emergency contact if: you have any medication questions, your symptoms worsen and your pain is not controlled Follow-up/Referrals: Oneil Tinajero MD [Primary Care Provider] - 12/16/22 9:20 am (12/16/22 at 9:20 am [address]) Diet: Carb Count or DM1 Addtl Attending Provider Instructions: You have been hospitalized for nausea/vomiting and abdominal pain. This is suspected from marijuana use/gastroparesis or possibly viral however you were treated with supportive care and electrolyte replacement and have had resolution in your symptoms and stable for discharge. Please avoid marijuana and other illicit drug use as these are likely contributing to your symptoms. Please follow up with primary care in the next week to monitor your status. Please return to the ER with any worsening symptoms, inability to tolerate oral intake or for any other symptoms concerning for you. Take care! Pending Studies at Discharge: Yes Studies:: urine drug screen confirmation testing Stand-Alone Forms: My [employer], Smoking Cessation Medications and DC Order Prescriptions: Continued Baqsimi 3 mg/actuation spray,non-aerosol 3 mg INTNAS DIRECTED PRN (Reason: Hypoglycemia) Qty: 2 1RF (DME) Contour Next Test Strips Strip See Rx Instructions .Route Qty: 400 3RF Rx Instructions: Test blood sugar four times daily insulin glargine [Lantus Solostar U-100 Insulin] 100 unit/mL (3 mL) insulin pen 45 unit subcut QAM Qty: 15 0RF Rx Instructions: Inject 45 units into the abdomen once daily. melatonin 5 mg Tablet 5 mg PO HS insulin aspart U-100 100 unit/mL solution 0 unit continuous subcutaneous infusion DAILY MDD 60 UNITS/DAILY Discharge Orders: Discharge Order (Routine); Ordered 12/10/22 Ordered By: Neha Cole Admission Data Admit Date/Time: 12/09/22 15:59 Attending Provider: Marlo Guillen Admit Provider: Jon Miranda Primary Care Provider: Oneil Tinajero Other Providers: Jon Miranda Supervising Physician Co-Signing Physician Notes The patient was seen by me. The chart was reviewed. Case discussed with ALLYN Santos. Agree with assessment and plan. He will be discharged home today, December 10 Coding Level of Care Code 43815 INP/OBS DISCH >30 MIN Diagnoses Intractable vomiting with nausea R11.2 Diabetes mellitus type 1 with complications E10.8
[2022-12-13 14:52] LABS: Cocaine, Urine >15000 ng/mL (<100); Marijuana Quant, GCMS Urine 1000 ng/mL (<5)
== END 2022-12-10 16:06 | disposition home or self-care (01) ==
LOC: EDINP 09:58 → ED 09:58 → SUATTDRO 15:59 → 3E 16:40

== ENCOUNTER 2023-05-24 18:50 | Observation (INO) ==
[2023-05-24] MEDS ORDERED: ONDANSETRON INJ 2 MG/ML 2 ML VIAL IV STA (19:07)
[2023-05-24] MEDS ORDERED: SODIUM CHLORIDE 0.9% 500 ML IV STA (19:07)
[2023-05-24 20:00] LABS: Appearance Urine Clear (Clear); Bacteria Urine Automated Negative (Negative); Bilirubin Urine Negative (Negative); Blood Urine Trace (Negative); Color Urine Yellow; Glucose Urine UA 3+ (Negative); Ketones Urine 4+ (Negative); Leukocyte Esterase Urine Negative (Negative); Nitrite Urine Negative (Negative); Protein Urine 3+ (Negative); RBC Urine Automated 0-4 /hpf (0-4); Specific Gravity Urine 1.038 (1.000-1.030); Urobilinogen Urine Negative (Negative); pH Urine 5.5 (4.5-7.5)
[2023-05-24 20:03] LABS: Basophils # (auto) 0.04 K/uL (0.00-0.20); Basophils % (auto) 0.3 %; Eosinophils # (auto) 0.01 K/uL (0.00-0.50); Eosinophils % (auto) 0.1 %; Hematocrit (blood only) 44.7 % (42.0-52.0); Hemoglobin 14.9 g/dl (14.0-18.0); Immature Granulocytes % (auto) 0.8 %; Lymphocytes # (auto) 1.64 K/uL (1.20-3.40); Lymphocytes % (auto) 12.3 %; Mean Corpuscular Hemoglobin 29.8 pg (25.0-34.0); Mean Corpuscular Hgb Conc 33.3 g/dL (32.0-36.0); Mean Corpuscular Volume 89.4 fL (80.0-100.0); Mean Platelet Volume 9.5 fL (9.4-12.4); Monocytes # (auto) 0.86 K/uL (0.11-0.59); Monocytes % (auto) 6.5 %; Neutrophils # (auto) 10.64 K/uL (1.40-6.50); Platelet Count 321 K/uL (130-400); RDW Coefficient of Variation 12.8 % (11.5-14.5); RDW Standard Deviation 42.3 fL (36.4-46.3); White Blood Count 13.29 K/ul (4.8-10.8)
[2023-05-24 20:20] LABS: Alanine Aminotransferase 13 U/L (7-52); Albumin Globulin Ratio 1.4 (0.9-2); Alkaline Phosphatase 103 U/L (34-104); BUN Creatinine Ratio 17.2 (10-20); Bilirubin,Total 0.8 mg/dl (0.2-1.0); Blood Urea Nitrogen 16 mg/dl (6-23); Calcium 9.8 mg/dl (8.6-10.3); Carbon Dioxide 24 mmol/L (21-32); Chloride 98 mmol/L (98-107); Creatinine Clr Calc Pharmacy 133.1 ml/min; Est GFR (African American) 129.9 ml/min; Est GFR (Non-African American) 112.1 ml/min; Globulin 3.5 gm/dl (2.5-4.0); Glucose 200 mg/dl (70-99(Fasting)); Lipase 8 U/L (11-82); Total Protein 8.5 gm/dl (6.0-8.3)
[2023-05-24] MEDS ORDERED: SODIUM CHLORIDE 0.9% 2,000 ML IV ONE (22:13)
[2023-05-24] MEDS ORDERED: diphenhydrAMINE 50 MG/ML VIAL IV STA (22:13)
[2023-05-24] MEDS ORDERED: PROCHLORPERAZINE 2 ML IV ONE (22:13)
--- NOTE | 2023-05-24 22:41 | Emergency Department Note ---
Impression & Plan Acute dehydration, Cannabinoid hyperemesis syndrome, Intractable vomiting with nausea ED Provider Note HISTORY OF PRESENT ILLNESS: Patient is a 28-year-old male presenting with nausea and vomiting. Patient states he has been vomiting since 2 AM yesterday. He is a type I diabetic and reports his blood sugars have been slightly elevated. He did have urinary ketones earlier this afternoon. He reports he took an ODT Zofran without any relief. He denies any abdominal pain. Denies any chest pain or shortness of breath. Denies any fevers. Denies any dysuria or hematuria. Patient reports that he took his last dose of 7 units of insulin just prior to arrival in the ER. ROS: as above PHYSICAL EXAM: Constitutional: Patient appears in no acute distress. HENT: Head: Normocephalic and atraumatic. Eyes: EOMI, PERRL Mouth/Throat: Mucous membranes dry. Neck: Trachea midline. Neck supple. Cardiovascular: Tachycardic with regular rhythm. No murmurs, rubs or gallops. Intact distal pulses. Pulmonary/Chest: No respiratory distress. Breath sounds clear and equal bilaterally. No wheezes or rales. Abdominal: Abdomen soft, no tenderness, rebound or guarding. Musculoskeletal: No edema, tenderness or deformity noted. Skin: Warm and dry. No rash, erythema, pallor or cyanosis Psychiatric: Appropriate mood and affect for situation. Neurological: Alert and keenly responsive. CN II-XII grossly intact, moving all extremities equally and fully. MDM: - Vitals signs showed tachycardia - History obtained via patient. Patient presents with nausea and vomiting. Patient states has been vomiting since yesterday at 2 AM. He was seen in the emergency department earlier today and discharged home. He states that he has continued to vomiting. He denies any significant abdominal pain, fevers, dysuria or hematuria. He took a Zofran earlier today with little relief in his symptoms. Patient reports that he took his last dose of 7 units of insulin just prior to arrival in the ER. - Chronic conditions affecting care: DM-1 - Differential diagnoses include, but are not limited to: viral syndrome; electrolyte abnormality; appendicitis; cholecystitis; hyperemesis syndrome - Order placed for continuous cardiac monitoring. At this time, monitor showed rate of 100 bpm with normal sinus rhythm, per my interpretation. - External medical records reviewed. - Laboratory workup interpreted by myself showed leukocytosis (WBC 13.29) with left shift; stable electrolytes; hyperglycemia (glucose 200) without evidence of elevated anion gap; normal lipase - VBG normal - UA negative for infection, but noted to have glucose and ketones in urine. - CT abdomen/pelvis with IV contrast showed wall thickening of the esophagus consistent with esophagitis. Also noted to have under distention of the colon. - Patient was initially given 500 mL NS and 4 mg IV zofran while waiting in waiting room. On my assessment, he is still complaining of nausea and persistent vomiting. Given 2L NS, 50 mg IV benadryl and 10 mg IV compazine. Given 40 mg IV protonix. - UDS positive for amphetamines and THC. - On reassessment, patient was sleeping. When I woke him up he did start vomiting again. - Discussion was had with infant childcare provider about patient's case and need for admission - Hospitalist consulted for admission - Patient admitted to [facility] for further evaluation and management. ASSESSMENT AND PLAN: Diagnosis: Acute dehydration; intractable nausea and vomiting; cannabinoid hyperemesis syndrome Plan: admit Past Med/Surg History Medical History Anemia Choledocholithiasis Cholelithiasis Cyclic vomiting syndrome Diabetes type 1, uncontrolled Gastroparesis Hematemesis Hepatitis History of opioid abuse Hypokalemia Hypomagnesemia Intractable cyclical vomiting with nausea Intractable vomiting with nausea Marijuana use Methadone dependence Nausea & vomiting Pneumomediastinum Soft tissue abscess Type I diabetes mellitus Surgical History Hx laparoscopic cholecystectomy (07/27/22) Laparoscopic Cholecystectomy, Repair of Incidental Enterotomy - Carlos Vigil DO Family History Father Valvular heart disease Mother Hypothyroidism Other Cancer Diabetes Heart disease Hypertension Social History Smoking Status: Never smoker Tobacco Type: E-cigarettes / Vaping Cigarettes Per Day: 3; Second Hand Exposure: No; Do You Dip or Chew Tobacco: No; Hx Alcohol Use: No Hx Substance Use: Yes Prescribed Medications: Opiates Non-Prescribed Medications: Marijuana Last Used Substance: Days (ago) Last Used Substance Other:: marijuana last used 2 wks ago, heroin last used 4 yrs ago Substance Use Type Other:: 1 week ago Preferred Language: Turkmen Communication Ability: Effective Balloon Maker Required: No Beliefs That Will Affect Care: None marital status: Single Current Living Situation: Parent current occupational status: unemployed How many Children do You have: 0 Feels Safe at Home: Yes Diet: diabetic during the past year weight has: decreased > 10 lbs Assistive Devices: None Allergies Allergies Allergy/AdvReac Type Severity Reaction Status Date / Time Cephalosporins Allergy Intermediate Hives Verified 05/24/23 22:20 Sulfa (Sulfonamide Allergy Intermediate Hives Verified 05/24/23 22:20 Antibiotics) azithromycin [From Zithromax] AdvReac Intermediate Hives Verified 05/24/23 22:20 Home Meds Home Medications Medication Instructions Recorded Confirmed melatonin 5 mg tablet 5 mg PO HS 05/15/20 05/24/23 Previous Rx's Medication Instructions Recorded blood sugar diagnostic (Contour #400 ea 08/06/21 Next Test Strips) glucagon 3 mg/actuation nasal 3 mg intranasal DIRECTED PRN 11/02/21 spray (Baqsimi) Hypoglycemia #2 ea insulin aspart U-100 100 unit/mL See Rx Instructions subcut 01/03/23 subcutaneous solution (Novolog .COMPLEX #60 mL U-100 Insulin aspart) promethazine 25 mg tablet 25 - 50 mg (1 - 2 x 25 mg) PO Q6H 03/26/23 PRN nausea and vomiting #30 tabs ondansetron HCl 4 mg tablet 4 mg PO TID PRN nausea and 05/24/23 vomiting 5 days #15 tabs pantoprazole 40 mg tablet,delayed 40 mg PO DAILY 30 days #30 tabs 05/24/23 release Results & Data (ED) Vital Signs Vital Signs - 24 hr 05/24/23 19:05 05/24/23 22:46 Temperature 37.6 C H Temperature Source Temporal Artery Scan Pulse Rate 118 H 103 H Respiratory Rate 20 Respiratory Effort / Characteristics Non-Labored Spontaneous Respiratory Depth Normal Blood Pressure 138/82 Blood Pressure Mean 100 Pulse Oximetry 99 Oxygen Delivery Method Room Air Sepsis Recent Fever Within 48 Hours No Sepsis New/Unexplained Change in Mental Status No Sepsis Action Taken by Nursing No Action Required Laboratory Data 05/24/23 19:45 05/24/23 22:49 Lab Results 1105/24/23 05/24/23 Range/Units 19:45 19:48 22:31 WBC 13.29 H (4.8-10.8) K/ul RBC 5.00 (4.70-6.10) M/uL Hgb 14.9 (14.0-18.0) g/dl Hct 44.7 (42.0-52.0) % MCV 89.4 (80.0-100.0) fL MCH 29.8 (25.0-34.0) pg MCHC 33.3 (32.0-36.0) g/dL RDW Std Deviation 42.3 (36.4-46.3) fL RDW Coeff of Carlos 12.8 (11.5-14.5) % Plt Count 321 (130-400) K/uL MPV 9.5 (9.4-12.4) fL Immature Gran % (Auto) 0.8 % Neut % (Auto) 80.0 % Lymph % (Auto) 12.3 % Iron % (Auto) 6.5 % Eos % (Auto) 0.1 % Baso % (Auto) 0.3 % Neut # (Auto) 10.64 H (1.40-6.50) K/uL Lymph # (Auto) 1.64 (1.20-3.40) K/uL Iron # (Auto) 0.86 H (0.11-0.59) K/uL Eos # (Auto) 0.01 (0.00-0.50) K/uL Baso # (Auto) 0.04 (0.00-0.20) K/uL Immature Gran # (Auto) 0.10 (0.01-0.20) K/uL VBG pH (7.36-7.41) VBG pCO2 (38-50) mmHg VBG pO2 mmHg VBG HCO3 mmol/L VBG O2 Saturation % VBG Base Excess mEq/L Sodium TNP Potassium TNP Chloride 98 (98-107) mmol/L Carbon Dioxide 24 (21-32) mmol/L Anion Gap TNP BUN 16 (6-23) mg/dl Creatinine 0.93 (0.6-1.4) mg/dl Est Cr Clr Drug Dosing 133.1 ml/min Est GFR ( Amer) 129.9 ml/min Est GFR (Non-Af Amer) 112.1 ml/min BUN/Creatinine Ratio 17.2 (10-20) Glucose 200 H (70-99(Fasting)) mg/dl POC Glucose 291 H (70-99) mg/dl Calcium 9.8 (8.6-10.3) mg/dl Magnesium (1.7-2.4) mg/dl Total Bilirubin 0.8 D (0.2-1.0) mg/dl AST TNP ALT 13 (7-52) U/L Alkaline Phosphatase 103 (34-104) U/L Total Protein 8.5 H (6.0-8.3) gm/dl Albumin 5.0 (3.4-5.0) gm/dl Globulin 3.5 (2.5-4.0) gm/dl Albumin/Globulin Ratio 1.4 (0.9-2) Lipase 8 L (11-82) U/L Urine Color Yellow Urine Appearance Clear (Clear) Urine pH 5.5 (4.5-7.5) Ur Specific [place] 1.038 H (1.000-1.030) Urine Protein 3+ H (Negative) Urine Glucose (UA) 3+ H (Negative) Urine Ketones 4+ H (Negative) Urine Blood Trace H (Negative) Urine Nitrite Negative (Negative) Urine Bilirubin Negative (Negative) Urine Urobilinogen Negative (Negative) Ur Leukocyte Esterase Negative (Negative) Urine WBC (Auto) 1-5 (0-5) /hpf Urine RBC (Auto) 0-4 (0-4) /hpf U Hyaline Cast (Auto) 1-5 (0-5) /lpf U Epithel Cells (Auto) 5-10 H (0-5) /lpf Urine Bacteria (Auto) Negative (Negative) Urine Opiates Screen Neg (Neg) Ur Methadone, Qual Neg (Neg) Urine Barbiturates Neg (Neg) Ur Phencyclidine (PCP) Neg (Neg) U Amphetamin/Meth Scrn Pos H (Neg) MDMA (Ecstasy) Screen Neg (Neg) U Benzodiazepines Scrn Neg (Neg) Ur Cocaine Metabolite Neg (Neg) U Marijuana (THC) Screen Pos H (Neg) 05/24/23 05/25/23 Range/Units 22:49 01:06 WBC (4.8-10.8) K/ul RBC (4.70-6.10) M/uL Hgb (14.0-18.0) g/dl Hct (42.0-52.0) % MCV (80.0-100.0) fL MCH (25.0-34.0) pg MCHC (32.0-36.0) g/dL RDW Std Deviation (36.4-46.3) fL RDW Coeff of Carlos (11.5-14.5) % Plt Count (130-400) K/uL MPV (9.4-12.4) fL Immature Gran % (Auto) % Neut % (Auto) % Lymph % (Auto) % Iron % (Auto) % Eos % (Auto) % Baso % (Auto) % Neut # (Auto) (1.40-6.50) K/uL Lymph # (Auto) (1.20-3.40) K/uL Iron # (Auto) (0.11-0.59) K/uL Eos # (Auto) (0.00-0.50) K/uL Baso # (Auto) (0.00-0.20) K/uL Immature Gran # (Auto) (0.01-0.20) K/uL VBG pH 7.41 (7.36-7.41) VBG pCO2 34 L (38-50) mmHg VBG pO2 46 mmHg VBG HCO3 22 mmol/L VBG O2 Saturation 76.2 % VBG Base Excess -2.4 mEq/L Sodium 138 Potassium 4.0 Chloride (98-107) mmol/L Carbon Dioxide (21-32) mmol/L Anion Gap BUN (6-23) mg/dl Creatinine (0.6-1.4) mg/dl Est Cr Clr Drug Dosing ml/min Est GFR ( Amer) ml/min Est GFR (Non-Af Amer) ml/min BUN/Creatinine Ratio (10-20) Glucose (70-99(Fasting)) mg/dl POC Glucose 215 H (70-99) mg/dl Calcium (8.6-10.3) mg/dl Magnesium 1.7 (1.7-2.4) mg/dl Total Bilirubin (0.2-1.0) mg/dl AST 15 ALT (7-52) U/L Alkaline Phosphatase (34-104) U/L Total Protein (6.0-8.3) gm/dl Albumin (3.4-5.0) gm/dl Globulin (2.5-4.0) gm/dl Albumin/Globulin Ratio (0.9-2) Lipase (11-82) U/L Urine Color Urine Appearance (Clear) Urine pH (4.5-7.5) Ur Specific [place] (1.000-1.030) Urine Protein (Negative) Urine Glucose (UA) (Negative) Urine Ketones (Negative) Urine Blood (Negative) Urine Nitrite (Negative) Urine Bilirubin (Negative) Urine Urobilinogen (Negative) Ur Leukocyte Esterase (Negative) Urine WBC (Auto) (0-5) /hpf Urine RBC (Auto) (0-4) /hpf U Hyaline Cast (Auto) (0-5) /lpf U Epithel Cells (Auto) (0-5) /lpf Urine Bacteria (Auto) (Negative) Urine Opiates Screen (Neg) Ur Methadone, Qual (Neg) Urine Barbiturates (Neg) Ur Phencyclidine (PCP) (Neg) U Amphetamin/Meth Scrn (Neg) MDMA (Ecstasy) Screen (Neg) U Benzodiazepines Scrn (Neg) Ur Cocaine Metabolite (Neg) U Marijuana (THC) Screen (Neg) Administered Medications Discontinued Medications Diphenhydramine HCl (Diphenhydramine 50 Mg/Ml Vial) 50 mg IV NOW STA Stop: 05/24/23 22:14 Last Admin: 05/24/23 22:46 Dose: 50 mg Documented By: LEANNA Sodium Chloride (Nss) 500 mls @ 999 mls/hr IV .Q31M STA Stop: 05/24/23 19:37 Last Infusion: 05/24/23 22:47 Dose: Infused Documented By: Admin: 05/24/23 19:46 Dose: 999 mls/hr Documented By: ANDREA Sodium Chloride (Nss) 2,000 mls @ 999 mls/hr IV .Q2H1M ONE Stop: 05/25/23 00:13 Last Admin: 05/24/23 22:46 Dose: 999 mls/hr Documented By: LEANNA Prochlorperazine (Compazine) 2 mls @ 1 mls/min IV ONE ONE Stop: 05/24/23 22:14 Last Admin: 05/24/23 22:46 Dose: 1 mls/min Documented By: LEANNA Ioversol (Optiray 320 500ml) 87 ml IV ONCE ONE Stop: 05/24/23 23:06 Last Admin: 05/24/23 23:05 Dose: 87 ml Documented By: SHIN Ondansetron HCl (Ondansetron Inj 2 Mg/Ml 2 Ml Vial) 4 mg IV NOW STA Stop: 05/24/23 19:08 Last Admin: 05/24/23 19:46 Dose: 4 mg Documented By: EMB Imaging Data Radiologist's Impression: Abdomen/Pelvis CT 05/24/23 22:13 Exam(s): CT ABDOMEN + PELVIS With Contrast IV Amt: 87 ml optiray 320 EXAM: CT Abdomen and Pelvis With Intravenous Contrast CLINICAL HISTORY: Reason for exam: abdominal pain. TECHNIQUE: Axial computed tomography images of the abdomen and pelvis with intravenous contrast. Automated exposure control was utilized for the study. A dose lowering technique was utilized adhering to the principles of ALARA. CONTRAST: Patient received 87 ml optiray 320 of IV contrast COMPARISON: CT abdomen and pelvis 07/22/2022. FINDINGS: Lung bases: Unremarkable. No mass. No consolidation. Mediastinum: Wall thickening of the esophagus. ABDOMEN: Liver: Unremarkable. No mass. Gallbladder and bile ducts: Cholecystectomy. No ductal dilation. Pancreas: Unremarkable. No mass. No ductal dilation. Spleen: Unremarkable. No splenomegaly. Adrenals: Unremarkable. No mass. Kidneys and ureters: Unremarkable. No solid mass. No hydronephrosis. Stomach and bowel: Wall thickening versus underdistention of the colon. PELVIS: Appendix: No findings to suggest acute appendicitis. Bladder: Unremarkable. No mass. Reproductive: Unremarkable as visualized. ABDOMEN and PELVIS: Intraperitoneal space: Unremarkable. No free air. No significant fluid collection. Bones/joints: Endplate Schmorl's nodes with associated mild anterior vertebral body height loss and focal kyphosis from T11-L1 may represent Scheuermann's disease. Chronic compression fracture of L3, unchanged. No dislocation. Soft tissues: Unremarkable. Vasculature: Unremarkable. No abdominal aortic aneurysm. Lymph nodes: Unremarkable. No enlarged lymph nodes. IMPRESSION: 1. Wall thickening of the esophagus. This may represent esophagitis in appropriate clinical scenario. 2. Wall thickening versus underdistention of the colon. This could represent colitis in the appropriate clinical scenario. Electronically signed by: Jeanmarie Ortiz MD 05/24/23 23:46 PM Discharge Plan Visit Data Chief Complaint: Vomiting Stated Complaint: NAUSEA, VOMITING ED Provider: Marguerite Méndez Discharge Problem: Acute dehydration, Cannabinoid hyperemesis syndrome, Intractable vomiting with nausea Patient Disposition: Home - Self-Care Discharge Instructions Lul/Other Patient Handouts: ED [facility] Vomiting Activity Restrictions/Additional Instructions: Your work-up in the emergency department showed that you were acutely dehydrated. Recommend you stop smoking marijuana, as this can cause significant episodes of vomiting. Recommend staying well-hydrated for the next 2 days and slowly advancing your diet as tolerated. Please follow-up closely with your primary care provider. Forms Stand Alone Forms: My [facility], Important Visit Information Prescriptions Prescriptions: No Action Baqsimi 3 mg/actuation spray,non-aerosol 3 mg INTNAS DIRECTED PRN (Reason: Hypoglycemia) Qty: 2 1RF (DME) Contour Next Test Strips Strip See Rx Instructions .Route Qty: 400 3RF Rx Instructions: Test blood sugar four times daily insulin aspart U-100 [Novolog U-100 Insulin aspart] 100 unit/mL solution See Rx Instructions subcut .COMPLEX Qty: 60 2RF Rx Instructions: CARB RATIO 1 UNIT TO 35 CARBS. melatonin 5 mg Tablet 5 mg PO HS pantoprazole 40 mg tablet,delayed release (DR/EC) 40 mg PO DAILY 30 Days Qty: 30 0RF Rx Instructions: DID NOT START YET PER PT. ondansetron HCl 4 mg tablet 4 mg PO TID PRN (Reason: nausea and vomiting) 5 Days Qty: 15 0RF promethazine 25 mg tablet 25 - 50 mg PO Q6H PRN (Reason: nausea and vomiting) Qty: 30 0RF Referrals Referrals: Oneil Tinajero MD [Primary Care Provider] -
[2023-05-24 22:59] LABS: Base Excess VBG -2.4 mEq/L; HCO3 VBG 22 mmol/L; Oxygen Saturation VBG 76.2 %; PCO2 VBG 34 mmHg (38-50); PO2 VBG 46 mmHg; pH VBG 7.41 (7.36-7.41)
[2023-05-24] MEDS ORDERED: OPTIRAY 320 500ml IV ONE (23:05)
[2023-05-24 23:22] LABS: Magnesium 1.7 mg/dl (1.7-2.4)
--- NOTE | 2023-05-24 23:47 | CT Scan Report ---
Exam(s): CT ABDOMEN + PELVIS With Contrast IV Amt: 87 ml optiray 320 EXAM: CT Abdomen and Pelvis With Intravenous Contrast CLINICAL HISTORY: Reason for exam: abdominal pain. TECHNIQUE: Axial computed tomography images of the abdomen and pelvis with intravenous contrast. Automated exposure control was utilized for the study. A dose lowering technique was utilized adhering to the principles of ALARA. CONTRAST: Patient received 87 ml optiray 320 of IV contrast COMPARISON: CT abdomen and pelvis 07/22/2022. FINDINGS: Lung bases: Unremarkable. No mass. No consolidation. Mediastinum: Wall thickening of the esophagus. ABDOMEN: Liver: Unremarkable. No mass. Gallbladder and bile ducts: Cholecystectomy. No ductal dilation. Pancreas: Unremarkable. No mass. No ductal dilation. Spleen: Unremarkable. No splenomegaly. Adrenals: Unremarkable. No mass. Kidneys and ureters: Unremarkable. No solid mass. No hydronephrosis. Stomach and bowel: Wall thickening versus underdistention of the colon. PELVIS: Appendix: No findings to suggest acute appendicitis. Bladder: Unremarkable. No mass. Reproductive: Unremarkable as visualized. ABDOMEN and PELVIS: Intraperitoneal space: Unremarkable. No free air. No significant fluid collection. Bones/joints: Endplate Schmorl's nodes with associated mild anterior vertebral body height loss and focal kyphosis from T11-L1 may represent Scheuermann's disease. Chronic compression fracture of L3, unchanged. No dislocation. Soft tissues: Unremarkable. Vasculature: Unremarkable. No abdominal aortic aneurysm. Lymph nodes: Unremarkable. No enlarged lymph nodes. IMPRESSION: 1. Wall thickening of the esophagus. This may represent esophagitis in appropriate clinical scenario. 2. Wall thickening versus underdistention of the colon. This could represent colitis in the appropriate clinical scenario. Electronically signed by: Jeanmarie Ortiz MD 05/24/23 23:46 PM
[2023-05-25 00:29] LABS: Amphetamines+Metham, Urine Pos (Neg); Barbiturates, Urine Neg (Neg); Benzodiazepine, Urine Neg (Neg); Cocaine, Urine Neg (Neg); MDMA (Ecstacy), Urine Neg (Neg); Marijuana, Urine Pos (Neg); Methadone, Urine Neg (Neg); Opiate, Urine Neg (Neg); Phencyclidine, Urine Neg (Neg)
[2023-05-25] MEDS ORDERED: PANTOprazole 40 MG in SYRINGE 0 ML IV ONE (00:42)
--- NOTE | 2023-05-25 01:29 | History & Physical Report ---
Date of Service May 25, 2023 Assessment & Plan (1) Intractable vomiting with nausea: Plan: Patient with cyclic vomiting. Notes that he is starting to feel slightly better after receiving medications in the ER. Still with nausea though -Observation to medical -Zofran PRN -Phenergan PRN -Gentle IVF and electrolyte repletion -PO as tolerated Patient developed severe back spasm in the ER. He reports that he gets them frequently when he is in the hospital with nausea. Given Valium 5mg po Ordered Morphine 2mg IV Heating pad Will reassess response (2) Diabetes type 1, uncontrolled: Plan: Not in DKA at present. pH=7.41, HCO3=24. Glucose is elevated at 215 -Lantus 15u BID -ISS -Goal blood sugar 110 - 140 (3) Esophagitis: Plan: Noted on CT imaging. Likely secondary to ongoing vomiting -Protonix 40mg IV daily -Monitor CBC History of Present Illness Chief Complaint: nausea and vomiting Primary Care Provider: Oneil Tinajero MD Luis Tijerina is a 28yo male returning to the ER again with ongoing nausea and vomiting. His symptoms began yesterday at 0200. Patient has not been able to tolerate po intake. He was seen in the ER earlier today with similar compla ints - was prescribed Zofran which he has been taking without improvement. He reports multiple episodes of vomiting with some dark red blood in the emesis at times. No diarrhea. No fever, chills, cough, SOB. Patient given multiple medications in the ER without improvement ER Course: Zofran NSS x 2.5L Phenergan Benadryl Protonix Valium Allergies Allergy/AdvReac Type Severity Reaction Status Date / Time Cephalosporins Allergy Intermediate Hives Verified 05/24/23 22:20 Sulfa (Sulfonamide Allergy Intermediate Hives Verified 05/24/23 22:20 Antibiotics) azithromycin [From Zithromax] AdvReac Intermediate Hives Verified 05/24/23 22:20 Home Medications Medication Instructions Recorded Confirmed Type melatonin 5 mg tablet 5 mg PO HS 05/15/20 05/24/23 History blood sugar diagnostic (Contour #400 ea 08/06/21 11/10/22 Rx Next Test Strips) glucagon 3 mg/actuation nasal 3 mg intranasal DIRECTED PRN 11/02/21 05/24/23 Rx spray (Baqsimi) Hypoglycemia #2 ea insulin aspart U-100 100 unit/mL See Rx Instructions subcut 01/03/23 05/24/23 Rx subcutaneous solution (Novolog .COMPLEX #60 mL U-100 Insulin aspart) promethazine 25 mg tablet 25 - 50 mg (1 - 2 x 25 mg) PO Q6H 03/26/23 05/24/23 Rx PRN nausea and vomiting #30 tabs ondansetron HCl 4 mg tablet 4 mg PO TID PRN nausea and 05/24/23 05/24/23 Rx vomiting 5 days #15 tabs pantoprazole 40 mg tablet,delayed 40 mg PO DAILY 30 days #30 tabs 05/24/23 05/24/23 Rx release Past Med/Surg History Medical History Choledocholithiasis Nausea & vomiting Cholelithiasis Diabetes type 1, uncontrolled Hypokalemia Hypomagnesemia Intractable cyclical vomiting with nausea Hematemesis Methadone dependence Cyclic vomiting syndrome Gastroparesis Marijuana use Intractable vomiting with nausea History of opioid abuse Type I diabetes mellitus Soft tissue abscess Anemia Pneumomediastinum Hepatitis Surgical History Hx laparoscopic cholecystectomy (07/27/22) Laparoscopic Cholecystectomy, Repair of Incidental Enterotomy - Carlos Vigil DO Family History Father Valvular heart disease Mother Hypothyroidism Other Cancer Diabetes Heart disease Hypertension Social History Smoking Status: Never smoker Tobacco Type: E-cigarettes / Vaping Cigarettes Per Day: 3; Second Hand Exposure: No; Do You Dip or Chew Tobacco: No; Hx Alcohol Use: No Hx Substance Use: Yes Prescribed Medications: Opiates Non-Prescribed Medications: Marijuana Last Used Substance: Days (ago) Last Used Substance Other:: marijuana last used 2 wks ago, heroin last used 4 yrs ago Substance Use Type Other:: 1 week ago Preferred Language: Kinyarwanda Communication Ability: Effective Technical Services Librarian Required: No Beliefs That Will Affect Care: None marital status: Single Current Living Situation: Parent current occupational status: unemployed How many Children do You have: 0 Feels Safe at Home: Yes Diet: diabetic during the past year weight has: decreased > 10 lbs Assistive Devices: None Review of Systems Review of Systems: All systems reviewed & are unremarkable except as noted in HPI & below Physical Exam Physical Exam: General: patient resting comfortably, NAD, non-toxic in appearance, AA&O x 4 Skin: warm, dry, intact, no rashes or lesions HEENT: NC/AT, PERRL, EOMI, anicteric sclera, conjunctiva without injection, external ear normal to inspection and nontender, nares patent, moist mucus membranes, dentition intact, no oropharyngeal lesions, neck supple, trachea midline, no LAD, no thyromegaly, no JVD Heart: +S1/S2, regular, no m/r/g Lungs: equal air entry bilaterally, no rales/rhonchi/wheezes Abd: +BS, soft, NT/ND, no masses/organomegaly/ascites Ext: warm, 2+ pulses in UE/LE bilaterally, no clubbing/cyanosis or edema Neuro: nonfocal, patient AA&O x 4, speech intact, no facial droop, moving all extremities on command with equal strength 5/5 Results & Data Results & Data Vital Signs (Past 12 Hours) Vital Signs Temp Pulse Pulse Resp BP Pulse Ox O2 Del Method 05/25/23 01:15 37.7 C H 105 H 26 H 96 Room Air 05/25/23 01:00 103 H 23 05/25/23 01:00 108/62 05/25/23 00:30 104 H 25 H 96 05/25/23 00:30 109/61 05/25/23 00:01 98 H 24 98 05/24/23 23:33 100 05/24/23 22:46 103 H 05/24/23 22:44 103 H 12 100 05/24/23 19:05 37.6 C H 118 H 20 138/82 99 Room Air Laboratory Results Laboratory Results WBC 13.29 K/ul (4.8-10.8) H 05/24/23 19:45 RBC 5.00 M/uL (4.70-6.10) 05/24/23 19:45 Hgb 14.9 g/dl (14.0-18.0) 05/24/23 19:45 Hct 44.7 % (42.0-52.0) 05/24/23 19:45 MCV 89.4 fL (80.0-100.0) 05/24/23 19:45 MCH 29.8 pg (25.0-34.0) 05/24/23 19:45 MCHC 33.3 g/dL (32.0-36.0) 05/24/23 19:45 RDW Std Deviation 42.3 fL (36.4-46.3) 05/24/23 19:45 RDW Coeff of Carlos 12.8 % (11.5-14.5) 05/24/23 19:45 Plt Count 321 K/uL (130-400) 05/24/23 19:45 MPV 9.5 fL (9.4-12.4) 05/24/23 19:45 Immature Gran % (Auto) 0.8 % 05/24/23 19:45 Neut % (Auto) 80.0 % 05/24/23 19:45 Lymph % (Auto) 12.3 % 05/24/23 19:45 [place] % (Auto) 6.5 % 05/24/23 19:45 Eos % (Auto) 0.1 % 05/24/23 19:45 Baso % (Auto) 0.3 % 05/24/23 19:45 Neut # (Auto) 10.64 K/uL (1.40-6.50) H 05/24/23 19:45 Lymph # (Auto) 1.64 K/uL (1.20-3.40) 05/24/23 19:45 [place] # (Auto) 0.86 K/uL (0.11-0.59) H 05/24/23 19:45 Eos # (Auto) 0.01 K/uL (0.00-0.50) 05/24/23 19:45 Baso # (Auto) 0.04 K/uL (0.00-0.20) 05/24/23 19:45 Immature Gran # (Auto) 0.10 K/uL (0.01-0.20) 05/24/23 19:45 VBG pH 7.41 (7.36-7.41) 05/24/23 22:49 VBG pCO2 34 mmHg (38-50) L 05/24/23 22:49 VBG pO2 46 mmHg 05/24/23 22:49 VBG HCO3 22 mmol/L 05/24/23 22:49 VBG O2 Saturation 76.2 % 05/24/23 22:49 VBG Base Excess -2.4 mEq/L 05/24/23 22:49 Sodium 138 mmol/L (136-145) 05/24/23 22:49 Potassium 4.0 mmol/L (3.5-5.1) 05/24/23 22:49 Chloride 98 mmol/L (98-107) 05/24/23 19:45 Carbon Dioxide 24 mmol/L (21-32) 05/24/23 19:45 Anion Gap TNP 05/24/23 19:45 BUN 16 mg/dl (6-23) 05/24/23 19:45 Creatinine 0.93 mg/dl (0.6-1.4) 05/24/23 19:45 Est Cr Clr Drug Dosing 133.1 ml/min 05/24/23 19:45 Est GFR ( Amer) 129.9 ml/min 05/24/23 19:45 Est GFR (Non-Af Amer) 112.1 ml/min 05/24/23 19:45 BUN/Creatinine Ratio 17.2 (10-20) 05/24/23 19:45 Glucose 200 mg/dl (70-99(Fasting)) H 05/24/23 19:45 POC Glucose 215 mg/dl (70-99) H 05/25/23 01:06 Calcium 9.8 mg/dl (8.6-10.3) 05/24/23 19:45 Magnesium 1.7 mg/dl (1.7-2.4) 05/24/23 22:49 Total Bilirubin 0.8 mg/dl (0.2-1.0) D 05/24/23 19:45 AST 15 U/L (13-39) 05/24/23 22:49 ALT 13 U/L (7-52) 05/24/23 19:45 Alkaline Phosphatase 103 U/L (34-104) 05/24/23 19:45 Total Protein 8.5 gm/dl (6.0-8.3) H 05/24/23 19:45 Albumin 5.0 gm/dl (3.4-5.0) 05/24/23 19:45 Globulin 3.5 gm/dl (2.5-4.0) 05/24/23 19:45 Albumin/Globulin Ratio 1.4 (0.9-2) 05/24/23 19:45 Lipase 8 U/L (11-82) L 05/24/23 19:45 Urine Color Yellow 05/24/23 19:48 Urine Appearance Clear (Clear) 05/24/23 19:48 Urine pH 5.5 (4.5-7.5) 05/24/23 19:48 Ur Specific [place] 1.038 (1.000-1.030) H 05/24/23 19:48 Urine Protein 3+ (Negative) H 05/24/23 19:48 Urine Glucose (UA) 3+ (Negative) H 05/24/23 19:48 Urine Ketones 4+ (Negative) H 05/24/23 19:48 Urine Blood Trace (Negative) H 05/24/23 19:48 Urine Nitrite Negative (Negative) 05/24/23 19:48 Urine Bilirubin Negative (Negative) 05/24/23 19:48 Urine Urobilinogen Negative (Negative) 05/24/23 19:48 Ur Leukocyte Esterase Negative (Negative) 05/24/23 19:48 Urine WBC (Auto) 1-5 /hpf (0-5) 05/24/23 19:48 Urine RBC (Auto) 0-4 /hpf (0-4) 05/24/23 19:48 U Hyaline Cast (Auto) 1-5 /lpf (0-5) 05/24/23 19:48 U Epithel Cells (Auto) 5-10 /lpf (0-5) H 05/24/23 19:48 Urine Bacteria (Auto) Negative (Negative) 05/24/23 19:48 Urine Opiates Screen Neg (Neg) 05/24/23 19:48 Ur Methadone, Qual Neg (Neg) 05/24/23 19:48 Urine Barbiturates Neg (Neg) 05/24/23 19:48 Ur Phencyclidine (PCP) Neg (Neg) 05/24/23 19:48 U Amphetamin/Meth Scrn Pos (Neg) H 05/24/23 19:48 MDMA (Ecstasy) Screen Neg (Neg) 05/24/23 19:48 U Benzodiazepines Scrn Neg (Neg) 05/24/23 19:48 Ur Cocaine Metabolite Neg (Neg) 05/24/23 19:48 U Marijuana (THC) Screen Pos (Neg) H 05/24/23 19:48 Impressions Abdomen/Pelvis CT 05/24/23 22:13 Exam(s): CT ABDOMEN + PELVIS With Contrast IV Amt: 87 ml optiray 320 EXAM: CT Abdomen and Pelvis With Intravenous Contrast CLINICAL HISTORY: Reason for exam: abdominal pain. TECHNIQUE: Axial computed tomography images of the abdomen and pelvis with intravenous contrast. Automated exposure control was utilized for the study. A dose lowering technique was utilized adhering to the principles of ALARA. CONTRAST: Patient received 87 ml optiray 320 of IV contrast COMPARISON: CT abdomen and pelvis 07/22/2022. FINDINGS: Lung bases: Unremarkable. No mass. No consolidation. Mediastinum: Wall thickening of the esophagus. ABDOMEN: Liver: Unremarkable. No mass. Gallbladder and bile ducts: Cholecystectomy. No ductal dilation. Pancreas: Unremarkable. No mass. No ductal dilation. Spleen: Unremarkable. No splenomegaly. Adrenals: Unremarkable. No mass. Kidneys and ureters: Unremarkable. No solid mass. No hydronephrosis. Stomach and bowel: Wall thickening versus underdistention of the colon. PELVIS: Appendix: No findings to suggest acute appendicitis. Bladder: Unremarkable. No mass. Reproductive: Unremarkable as visualized. ABDOMEN and PELVIS: Intraperitoneal space: Unremarkable. No free air. No significant fluid collection. Bones/joints: Endplate Schmorl's nodes with associated mild anterior vertebral body height loss and focal kyphosis from T11-L1 may represent Scheuermann's disease. Chronic compression fracture of L3, unchanged. No dislocation. Soft tissues: Unremarkable. Vasculature: Unremarkable. No abdominal aortic aneurysm. Lymph nodes: Unremarkable. No enlarged lymph nodes. IMPRESSION: 1. Wall thickening of the esophagus. This may represent esophagitis in appropriate clinical scenario. 2. Wall thickening versus underdistention of the colon. This could represent colitis in the appropriate clinical scenario. Electronically signed by: Jeanmarie Ortiz MD 05/24/23 23:46 PM PG Care Time/CCT Total # of Minutes Spent Total Time Spent with Patient: Total time spent is greater than 50% in coordination of care (as documented) at patient's floor/unit and/or counseling patient: Coding Level of Care Code 27599 INT INP/OBS CARE 2/55MIN Diagnoses Intractable vomiting with nausea R11.2 Diabetes type 1, uncontrolled E10.65 Glycemic state: with hyperglycemia Esophagitis K20.90 (2) Diabetes type 1, uncontrolled Glycemic state: with hyperglycemia Qualified Code(s): E10.65 - Type 1 diabetes mellitus with hyperglycemia
[2023-05-25] MEDS ORDERED: diazePAM 5 MG TABLET PO ONE (01:49)
[2023-05-25] MEDS ORDERED: MoRPHine SULFATE 2 MG/ML CARP IV STA (02:17)
[2023-05-25] MEDS ORDERED: INSULIN ASPART PER UNIT CHARGE SC STA (03:31)
[2023-05-25] MEDS ORDERED: LANTUS PER UNIT CHARGE SQ STA (03:31)
[2023-05-25] MEDS ORDERED: MoRPHine SULFATE 2 MG/ML CARP IV PRN (04:29)
[2023-05-25] MEDS ORDERED: PROMETHAZINE HCL 6.25 MG in SODIUM CHLORIDE 0.9% 50 ML IV PRN (04:29)
[2023-05-25] MEDS ORDERED: MELATONIN 3 MG TAB PO PRN (04:29)
[2023-05-25] MEDS ORDERED: GLUCOSE 40% GEL 15 GM TUBE PO PRN (04:29)
[2023-05-25] MEDS ORDERED: GLUCOSE 10 TAB/TUBE PO PRN (04:29)
[2023-05-25] MEDS ORDERED: ONDANSETRON INJ 2 MG/ML 2 ML VIAL IV PRN (04:29)
[2023-05-25] MEDS ORDERED: GLUCAGON FOR INJ 1 MG VIAL SQ PRN (04:29)
[2023-05-25] MEDS ORDERED: ACETAMINOPHEN 325 MG TAB PO PRN (04:29)
[2023-05-25] MEDS ORDERED: CARBOHYDRATES FOR HYPOGLYCEMIA PO PRN (04:29)
[2023-05-25] MEDS ORDERED: DEXTROSE 50% 50 ML SYRINGE IV PRN (04:29)
[2023-05-25] MEDS ORDERED: LACTATED RINGER'S 1,000 ML IV SCH (04:29)
[2023-05-25] MEDS: INSULIN ASPART PER UNIT CHARGE SC SCH ×4 (09:00→22:13)
[2023-05-25] MEDS ORDERED: LANTUS PER UNIT CHARGE SQ SCH (09:00)
--- NOTE | 2023-05-25 09:12 | Hospitalist Progress Note ---
Date of Service May 25, 2023 Assessment & Plan (1) Intractable vomiting with nausea: Plan: Patient with cyclic vomiting. Notes that he is starting to feel slightly better after receiving medications in the ER. Still with persistent nausea requiring inpatient admit -Observation to medical -Zofran, phenergan prn IVF, continued LR @ 80cc/hr Valium 2mg PO x 1, baclofen TID prn back spasms. ? from hyperglycemia w/ BSG 419 overnight Some nausea/back spasm pain but no further vomiting reported Protonix increased to BID (esophagitis possible on CTAP on admit) Diet as tolerated Repeating labs/electrolyte replacement as indicated Pharmacy consulted for glycemic management (into 400s on arrival, repeat A1c in AM -- reports ~150s at home) Patient developed severe back spasm in the ER. He reports that he gets them frequently when he is in the hospital with nausea. Given Valium 5mg po Ordered Morphine 2mg IV Heating pad Baclofen as above, valium 2mg x 1 - can order additional dose for tonight if needed (2) Diabetes type 1, uncontrolled: Plan: Not in DKA on admission reported, ?early DKA UA w/ 4+ ketones/anion gap 21 on labs 05/24 AM (was dc in AM, represented to ER, Anion gap TNP). VBG w/ pH 7.41, HCO3 24. Glu 215 on admission was placed on Lantus 15u BID scheduled on admission Had BSG to 419 overnight, BSGs to 190s presently, on sliding scale insulin Continued IVF w/ LR, may need to add d5 to am labs, not great PO intake Ordered glycemic consult for assistance Repeat labs for today, A1c w/ AM labs Monitor BSGs (3) Esophagitis: Plan: Noted on CT imaging. Likely secondary to ongoing vomiting Protonix 40mg IV daily ordered, increased to BID. If no further n/v can convert to PO BID in AM Monitor bowel movements, hx gastroparesis. Underdistention of colon on admission CTAP Plan continued inpatient stay Admission and Anticipated Discharge Date Admission Date: May 25, 2023 Supervising Physician Co-Signing Physician Notes The patient was not seen by me. The chart was reviewed. Case discussed with ALLYN Santos. Agree with assessment and plan Subjective BRIDGE NOTE: ADMITTED AFTER MIDNIGHT Evaluated this afternoon, feeling ok. Got some Valium for back spasms, he thinks from his prior vomiting. BSGs usually around 150s at home. Pharmacy to be consulted for glycemic management. Not moving his bowels but reports not eating much. Asked about diet, he asked about diet for at supper but agreeable to call down for diet now. Discussed Valium for this evening but can trial baclofen for back spasms in meantime. No fever/chills at home. No further vomiting since admission. Discussed continued inpatient stay/repeat labs/electrolyte replacement as needed and possible dc tomorrow. Questions/concerns addressed at this time. Physical Exam Physical Exam: General: patient resting comfortably in bed, resting, reports was medicated with valium and sleeping much of the day, covered in blanket, NAD alert/oriented x 3, but fatigued appearing HEENT: normocephalic, atraumatic, mm slightly dry, trachea midline Resp: CTA no w/c/r, slightly diminished in the bases, on room air CV: RRR, slightly tachycardic to low 100s at times, no significant m/r/g, no pitting edema GI: +BS, soft/NT MSK/Neuro: nonfocal , no slurred speech/facial droop, following commands kyphosis Psych: alert, oriented x 3, cooperative with exam Results & Data Results & Data Vital Signs (Past 12 Hours) Vital Signs Temp Pulse Pulse Resp BP BP Pulse Ox 05/25/23 07:33 36.7 C 100 H 16 107/66 97 05/25/23 04:40 36.9 C 105 H 18 126/78 97 05/25/23 04:29 05/25/23 03:30 113 H 21 05/25/23 03:29 37.1 C 05/25/23 03:00 117 H 24 127/75 96 05/25/23 02:34 125/81 05/25/23 02:34 130 H 18 97 05/25/23 02:30 123 H 31 H 05/25/23 02:06 136 H 17 05/25/23 02:00 37 C 05/25/23 01:56 136 H 17 97 05/25/23 01:56 128/74 05/25/23 01:41 155 H 12 05/25/23 01:15 37.7 C H 105 H 26 H 96 05/25/23 01:00 103 H 23 05/25/23 01:00 108/62 05/25/23 00:30 104 H 25 H 96 05/25/23 00:30 109/61 05/25/23 00:01 98 H 24 98 05/24/23 23:33 100 05/24/23 22:46 103 H 05/24/23 22:44 103 H 12 100 O2 Del Method 05/25/23 07:33 Room Air 05/25/23 04:40 Room Air 05/25/23 04:29 Room Air 05/25/23 03:30 05/25/23 03:29 05/25/23 03:00 05/25/23 02:34 05/25/23 02:34 05/25/23 02:30 05/25/23 02:06 05/25/23 02:00 05/25/23 01:56 05/25/23 01:56 05/25/23 01:41 05/25/23 01:15 Room Air 05/25/23 01:00 05/25/23 01:00 05/25/23 00:30 05/25/23 00:30 05/25/23 00:01 05/24/23 23:33 05/24/23 22:46 05/24/23 22:44 Laboratory Results 05/25/23 05/25/23 05/25/23 Range/Units 07:31 03:23 01:06 WBC (4.8-10.8) K/ul RBC (4.70-6.10) M/uL Hgb (14.0-18.0) g/dl Hct (42.0-52.0) % MCV (80.0-100.0) fL MCH (25.0-34.0) pg MCHC (32.0-36.0) g/dL RDW Std Deviation (36.4-46.3) fL RDW Coeff of Carlos (11.5-14.5) % Plt Count (130-400) K/uL MPV (9.4-12.4) fL Immature Gran % (Auto) % Neut % (Auto) % Lymph % (Auto) % [place] % (Auto) % Eos % (Auto) % Baso % (Auto) % Neut # (Auto) (1.40-6.50) K/uL Lymph # (Auto) (1.20-3.40) K/uL [place] # (Auto) (0.11-0.59) K/uL Eos # (Auto) (0.00-0.50) K/uL Baso # (Auto) (0.00-0.20) K/uL Immature Gran # (Auto) (0.01-0.20) K/uL VBG pH (7.36-7.41) VBG pCO2 (38-50) mmHg VBG pO2 mmHg VBG HCO3 mmol/L VBG O2 Saturation % VBG Base Excess mEq/L Sodium Potassium Chloride (98-107) mmol/L Carbon Dioxide (21-32) mmol/L Anion Gap BUN (6-23) mg/dl Creatinine (0.6-1.4) mg/dl Est Cr Clr Drug Dosing ml/min Est GFR ( Amer) ml/min Est GFR (Non-Af Amer) ml/min BUN/Creatinine Ratio (10-20) Glucose (70-99(Fasting)) mg/dl POC Glucose 172 H 419 H* 215 H (70-99) mg/dl Calcium (8.6-10.3) mg/dl Magnesium (1.7-2.4) mg/dl Total Bilirubin (0.2-1.0) mg/dl AST ALT (7-52) U/L Alkaline Phosphatase (34-104) U/L Total Protein (6.0-8.3) gm/dl Albumin (3.4-5.0) gm/dl Globulin (2.5-4.0) gm/dl Albumin/Globulin Ratio (0.9-2) Lipase (11-82) U/L Urine Color Urine Appearance (Clear) Urine pH (4.5-7.5) Ur Specific [place] (1.000-1.030) Urine Protein (Negative) Urine Glucose (UA) (Negative) Urine Ketones (Negative) Urine Blood (Negative) Urine Nitrite (Negative) Urine Bilirubin (Negative) Urine Urobilinogen (Negative) Ur Leukocyte Esterase (Negative) Urine WBC (Auto) (0-5) /hpf Urine RBC (Auto) (0-4) /hpf U Hyaline Cast (Auto) (0-5) /lpf U Epithel Cells (Auto) (0-5) /lpf Urine Bacteria (Auto) (Negative) Urine Opiates Screen (Neg) Ur Methadone, Qual (Neg) Urine Barbiturates (Neg) Ur Phencyclidine (PCP) (Neg) U Amphetamines Confirm U Amphetamin/Meth Scrn (Neg) U Methamphetamin Confrm MDMA (Ecstasy) Screen (Neg) U Benzodiazepines Scrn (Neg) Ur Cocaine Metabolite (Neg) U Marijuana (THC) Screen (Neg) U Marijuana THC Carboxy Drug Screen Comment 05/24/23 05/24/23 05/24/23 Range/Units 22:49 22:31 19:48 WBC (4.8-10.8) K/ul RBC (4.70-6.10) M/uL Hgb (14.0-18.0) g/dl Hct (42.0-52.0) % MCV (80.0-100.0) fL MCH (25.0-34.0) pg MCHC (32.0-36.0) g/dL RDW Std Deviation (36.4-46.3) fL RDW Coeff of [place] (11.5-14.5) % Plt Count (130-400) K/uL MPV (9.4-12.4) fL Immature Gran % (Auto) % Neut % (Auto) % Lymph % (Auto) % [place] % (Auto) % Eos % (Auto) % Baso % (Auto) % Neut # (Auto) (1.40-6.50) K/uL Lymph # (Auto) (1.20-3.40) K/uL [place] # (Auto) (0.11-0.59) K/uL Eos # (Auto) (0.00-0.50) K/uL Baso # (Auto) (0.00-0.20) K/uL Immature Gran # (Auto) (0.01-0.20) K/uL VBG pH 7.41 (7.36-7.41) VBG pCO2 34 L (38-50) mmHg VBG pO2 46 mmHg VBG HCO3 22 mmol/L VBG O2 Saturation 76.2 % VBG Base Excess -2.4 mEq/L Sodium 138 Potassium 4.0 Chloride (98-107) mmol/L Carbon Dioxide (21-32) mmol/L Anion Gap BUN (6-23) mg/dl Creatinine (0.6-1.4) mg/dl Est Cr Clr Drug Dosing ml/min Est GFR ( Amer) ml/min Est GFR (Non-Af Amer) ml/min BUN/Creatinine Ratio (10-20) Glucose (70-99(Fasting)) mg/dl POC Glucose 291 H (70-99) mg/dl Calcium (8.6-10.3) mg/dl Magnesium 1.7 (1.7-2.4) mg/dl Total Bilirubin (0.2-1.0) mg/dl AST 15 ALT (7-52) U/L Alkaline Phosphatase (34-104) U/L Total Protein (6.0-8.3) gm/dl Albumin (3.4-5.0) gm/dl Globulin (2.5-4.0) gm/dl Albumin/Globulin Ratio (0.9-2) Lipase (11-82) U/L Urine Color Yellow Urine Appearance Clear (Clear) Urine pH 5.5 (4.5-7.5) Ur Specific [place] 1.038 H (1.000-1.030) Urine Protein 3+ H (Negative) Urine Glucose (UA) 3+ H (Negative) Urine Ketones 4+ H (Negative) Urine Blood Trace H (Negative) Urine Nitrite Negative (Negative) Urine Bilirubin Negative (Negative) Urine Urobilinogen Negative (Negative) Ur Leukocyte Esterase Negative (Negative) Urine WBC (Auto) 1-5 (0-5) /hpf Urine RBC (Auto) 0-4 (0-4) /hpf U Hyaline Cast (Auto) 1-5 (0-5) /lpf U Epithel Cells (Auto) 5-10 H (0-5) /lpf Urine Bacteria (Auto) Negative (Negative) Urine Opiates Screen Neg (Neg) Ur Methadone, Qual Neg (Neg) Urine Barbiturates Neg (Neg) Ur Phencyclidine (PCP) Neg (Neg) U Amphetamines Confirm Pending U Amphetamin/Meth Scrn Pos H (Neg) U Methamphetamin Confrm Pending MDMA (Ecstasy) Screen Neg (Neg) U Benzodiazepines Scrn Neg (Neg) Ur Cocaine Metabolite Neg (Neg) U Marijuana (THC) Screen Pos H (Neg) U Marijuana THC Carboxy Pending Drug Screen Comment Pending 05/24/23 Range/Units 19:45 WBC 13.29 H (4.8-10.8) K/ul RBC 5.00 (4.70-6.10) M/uL Hgb 14.9 (14.0-18.0) g/dl Hct 44.7 (42.0-52.0) % MCV 89.4 (80.0-100.0) fL MCH 29.8 (25.0-34.0) pg MCHC 33.3 (32.0-36.0) g/dL RDW Std Deviation 42.3 (36.4-46.3) fL RDW Coeff of Carlos 12.8 (11.5-14.5) % Plt Count 321 (130-400) K/uL MPV 9.5 (9.4-12.4) fL Immature Gran % (Auto) 0.8 % Neut % (Auto) 80.0 % Lymph % (Auto) 12.3 % [place] % (Auto) 6.5 % Eos % (Auto) 0.1 % Baso % (Auto) 0.3 % Neut # (Auto) 10.64 H (1.40-6.50) K/uL Lymph # (Auto) 1.64 (1.20-3.40) K/uL [place] # (Auto) 0.86 H (0.11-0.59) K/uL Eos # (Auto) 0.01 (0.00-0.50) K/uL Baso # (Auto) 0.04 (0.00-0.20) K/uL Immature Gran # (Auto) 0.10 (0.01-0.20) K/uL VBG pH (7.36-7.41) VBG pCO2 (38-50) mmHg VBG pO2 mmHg VBG HCO3 mmol/L VBG O2 Saturation % VBG Base Excess mEq/L Sodium TNP Potassium TNP Chloride 98 (98-107) mmol/L Carbon Dioxide 24 (21-32) mmol/L Anion Gap TNP BUN 16 (6-23) mg/dl Creatinine 0.93 (0.6-1.4) mg/dl Est Cr Clr Drug Dosing 133.1 ml/min Est GFR ( Amer) 129.9 ml/min Est GFR (Non-Af Amer) 112.1 ml/min BUN/Creatinine Ratio 17.2 (10-20) Glucose 200 H (70-99(Fasting)) mg/dl POC Glucose (70-99) mg/dl Calcium 9.8 (8.6-10.3) mg/dl Magnesium (1.7-2.4) mg/dl Total Bilirubin 0.8 D (0.2-1.0) mg/dl AST TNP ALT 13 (7-52) U/L Alkaline Phosphatase 103 (34-104) U/L Total Protein 8.5 H (6.0-8.3) gm/dl Albumin 5.0 (3.4-5.0) gm/dl Globulin 3.5 (2.5-4.0) gm/dl Albumin/Globulin Ratio 1.4 (0.9-2) Lipase 8 L (11-82) U/L Urine Color Urine Appearance (Clear) Urine pH (4.5-7.5) Ur Specific [place] (1.000-1.030) Urine Protein (Negative) Urine Glucose (UA) (Negative) Urine Ketones (Negative) Urine Blood (Negative) Urine Nitrite (Negative) Urine Bilirubin (Negative) Urine Urobilinogen (Negative) Ur Leukocyte Esterase (Negative) Urine WBC (Auto) (0-5) /hpf Urine RBC (Auto) (0-4) /hpf U Hyaline Cast (Auto) (0-5) /lpf U Epithel Cells (Auto) (0-5) /lpf Urine Bacteria (Auto) (Negative) Urine Opiates Screen (Neg) Ur Methadone, Qual (Neg) Urine Barbiturates (Neg) Ur Phencyclidine (PCP) (Neg) U Amphetamines Confirm U Amphetamin/Meth Scrn (Neg) U Methamphetamin Confrm MDMA (Ecstasy) Screen (Neg) U Benzodiazepines Scrn (Neg) Ur Cocaine Metabolite (Neg) U Marijuana (THC) Screen (Neg) U Marijuana THC Carboxy Drug Screen Comment Diagnostic Findings Abdomen/Pelvis CT 05/24/23 22:13 Exam(s): CT ABDOMEN + PELVIS With Contrast IV Amt: 87 ml optiray 320 EXAM: CT Abdomen and Pelvis With Intravenous Contrast CLINICAL HISTORY: Reason for exam: abdominal pain. TECHNIQUE: Axial computed tomography images of the abdomen and pelvis with intravenous contrast. Automated exposure control was utilized for the study. A dose lowering technique was utilized adhering to the principles of ALARA. CONTRAST: Patient received 87 ml optiray 320 of IV contrast COMPARISON: CT abdomen and pelvis 07/22/2022. FINDINGS: Lung bases: Unremarkable. No mass. No consolidation. Mediastinum: Wall thickening of the esophagus. ABDOMEN: Liver: Unremarkable. No mass. Gallbladder and bile ducts: Cholecystectomy. No ductal dilation. Pancreas: Unremarkable. No mass. No ductal dilation. Spleen: Unremarkable. No splenomegaly. Adrenals: Unremarkable. No mass. Kidneys and ureters: Unremarkable. No solid mass. No hydronephrosis. Stomach and bowel: Wall thickening versus underdistention of the colon. PELVIS: Appendix: No findings to suggest acute appendicitis. Bladder: Unremarkable. No mass. Reproductive: Unremarkable as visualized. ABDOMEN and PELVIS: Intraperitoneal space: Unremarkable. No free air. No significant fluid collection. Bones/joints: Endplate Schmorl's nodes with associated mild anterior vertebral body height loss and focal kyphosis from T11-L1 may represent Scheuermann's disease. Chronic compression fracture of L3, unchanged. No dislocation. Soft tissues: Unremarkable. Vasculature: Unremarkable. No abdominal aortic aneurysm. Lymph nodes: Unremarkable. No enlarged lymph nodes. IMPRESSION: 1. Wall thickening of the esophagus. This may represent esophagitis in appropriate clinical scenario. 2. Wall thickening versus underdistention of the colon. This could represent colitis in the appropriate clinical scenario. Electronically signed by: Jeanmarie Ortiz MD 05/24/23 23:46 PM PG Care Time/CCT Total # of Minutes Spent Total Time Spent with Patient: Total time spent is greater than 50% in coordination of care (as documented) at patient's floor/unit and/or counseling patient: Coding Level of Care Code None Diagnoses Intractable vomiting with nausea R11.2 Diabetes type 1, uncontrolled E10.65 Glycemic state: with hyperglycemia Esophagitis K20.90 (2) Diabetes type 1, uncontrolled Glycemic state: with hyperglycemia Qualified Code(s): E10.65 - Type 1 diabetes mellitus with hyperglycemia
[2023-05-25] MEDS ORDERED: diazePAM 2 MG TABLET PO ONE ×2 (09:30→12:30)
[2023-05-25 10:24] LABS: Albumin Level 3.8 gm/dl (3.4-5.0); Bilirubin Direct 0.2 mg/dl (0-0.2); Bilirubin,Total 1.2 mg/dl (0.2-1.0); Magnesium 1.7 mg/dl (1.7-2.4); Total Protein 5.9 gm/dl (6.0-8.3)
[2023-05-25] MEDS ORDERED: PANTOprazole 40 MG in SYRINGE 0 ML IV SCH (11:00)
--- NOTE | 2023-05-25 11:51 | Electrocardiogram Report ---
Test Reason : Blood Pressure : / mmHG Vent. Rate : 108 BPM Atrial Rate : 108 BPM P-R Int : 142 ms QRS Dur : 088 ms QT Int : 354 ms P-R-T Axes : 070 063 064 degrees QTc Int : 474 ms Sinus tachycardia Possible Left atrial enlargement Borderline ECG When compared with ECG of 13-APR-2023 09:08, Nonspecific T wave abnormality now evident in Anterior leads Confirmed by Fabian Burciaga ([id number]) on 05/25/2023 11:51:40 AM Referred By: REFERRED SELF Confirmed By:Mikey Burciaga
[2023-05-25] MEDS: LACTATED RINGER'S 1,000 ML IV SCH ×2 (12:49→23:15)
[2023-05-25] MEDS ORDERED: PHARMACY GLYCEMIC MGMT CONSULT PRN (14:38)
--- NOTE | 2023-05-25 15:11 | Pharmacy Report ---
Pharmacy Glycemic Short Note 2 - Date of Service May 25, 2023 - Glycemic Short BSG Results (Last 24 hours): 05/24/23 05/24/23 05/25/23 19:45 22:31 01:06 Glucose 200 H POC Glucose 291 H 215 H 05/25/23 05/25/23 05/25/23 03:23 07:31 11:34 Glucose POC Glucose 419 H* 172 H 192 H OUTPATIENT ANTIDIABETIC REGIMEN: * 45 units of Lantus daily (per diabetes visit 11/10/22) * 10 units of bolus insulin with meals (per diabetes visit 11/10/22) * HbA1c 8.2% 11/30/22 * HbA1c pending 05/26/23 ASSESSMENT: * Luis is a 28 YOM admitted with nausea and vomiting and a history of T1DM. Pharmacy has been consulted for glycemic management while inpatient. * BSG elevated this AM, likely not fasting BSG, diet ordered overnight, 20 units of Lantus given this AM, previously required around 20-25 units of Lantus on previous admissions, will add a scale at bedtime based on BSG * Loose carb ratio ordered, will tighten Novolog parameters to values slightly looser than previous parameters PLAN FOR INPATIENT GLYCEMIC CONTROL: * Hold outpatient oral diabetes medications * Basal insulin * Lantus 5 + 15 units this AM * Lantus 0-5 units HS (see eMAR for additional details) * Reassess basal regimen in AM * Bolus insulin * NovoLog per scale ACHS or Q6hrs while NPO * Goal Range: Low 110 mg/dL - High 140 mg/dL * Correction Factor: 35 mg/dL/unit * Nutritional / Prandial insulin per carb ratio of 1 unit per 12 grams CHO consumed
[2023-05-25 15:56] LABS: Albumin Globulin Ratio 1.7 (0.9-2); Albumin Level 3.6 gm/dl (3.4-5.0); BUN Creatinine Ratio 10.6 (10-20); Calcium 8.5 mg/dl (8.6-10.3); Creatinine Clr Calc Pharmacy 148.8 ml/min; Est GFR (African American) 138.4 ml/min; Est GFR (Non-African American) 119.4 ml/min; Globulin 2.1 gm/dl (2.5-4.0); Magnesium 1.5 mg/dl (1.7-2.4); Potassium 3.7 mmol/L (3.5-5.1); Total Protein 5.7 gm/dl (6.0-8.3)
[2023-05-25 16:04] LABS: Basophils # (auto) 0.03 K/uL (0.00-0.20); Basophils % (auto) 0.3 %; Eosinophils # (auto) 0.09 K/uL (0.00-0.50); Eosinophils % (auto) 0.8 %; Hematocrit (blood only) 34.4 % (42.0-52.0); Hemoglobin 11.6 g/dl (14.0-18.0); Immature Granulocytes # (auto) 0.05 K/uL (0.01-0.20); Immature Granulocytes % (auto) 0.5 %; Lymphocytes # (auto) 2.44 K/uL (1.20-3.40); Lymphocytes % (auto) 22.2 %; Mean Corpuscular Hemoglobin 30.1 pg (25.0-34.0); Mean Corpuscular Hgb Conc 33.7 g/dL (32.0-36.0); Mean Corpuscular Volume 89.4 fL (80.0-100.0); Mean Platelet Volume 9.4 fL (9.4-12.4); Monocytes # (auto) 1.02 K/uL (0.11-0.59); Monocytes % (auto) 9.3 %; Neutrophils # (auto) 7.38 K/uL (1.40-6.50); Neutrophils % (auto) 66.9 %; Platelet Count 221 K/uL (130-400); RDW Standard Deviation 42.7 fL (36.4-46.3); Red Blood Count 3.85 M/uL (4.70-6.10); White Blood Count 11.01 K/ul (4.8-10.8)
[2023-05-25] MEDS: MAGNESIUM SULFATE / D5W 1 GM/100 ML BAG IV SCH ×3 (16:43→20:38)
[2023-05-25] MEDS ORDERED: ERGOCALCIFEROL 50,000 UNITS 1250 MCG CAP PO SCH (17:00)
[2023-05-25] MEDS: BACLOFEN 10 MG TAB PO PRN ×2 (17:13→22:12)
[2023-05-25] MEDS: MoRPHine SULFATE 4 MG/ML 1 ML CARP\\VIAL IV PRN ×2 (19:59→23:11)
[2023-05-25] MEDS: PANTOprazole 40 MG in SYRINGE 0 ML IV SCH (20:12)
[2023-05-25] MEDS ORDERED: LANTUS PER UNIT CHARGE SC SCH (21:00)
[2023-05-26] MEDS: BACLOFEN 10 MG TAB PO PRN (04:27)
[2023-05-26] MEDS: MoRPHine SULFATE 4 MG/ML 1 ML CARP\\VIAL IV PRN ×2 (04:27→07:32)
[2023-05-26] MEDS: PANTOprazole 40 MG in SYRINGE 0 ML IV SCH (07:33)
[2023-05-26 07:35] LABS: Hematocrit (blood only) 33.8 % (42.0-52.0); Hemoglobin 11.2 g/dl (14.0-18.0); Mean Corpuscular Hemoglobin 29.6 pg (25.0-34.0); Mean Corpuscular Hgb Conc 33.1 g/dL (32.0-36.0); Mean Corpuscular Volume 89.4 fL (80.0-100.0); Mean Platelet Volume 9.6 fL (9.4-12.4); Platelet Count 214 K/uL (130-400); RDW Coefficient of Variation 12.6 % (11.5-14.5); RDW Standard Deviation 41.1 fL (36.4-46.3); Red Blood Count 3.78 M/uL (4.70-6.10); White Blood Count 8.71 K/ul (4.8-10.8)
[2023-05-26 07:38] LABS: Estimated Average Glucose 177 mg/dl; Hemoglobin A1C 7.8 % (4.5-5.6)
[2023-05-26 07:53] LABS: BUN Creatinine Ratio 7.2 (10-20); Calcium 8.3 mg/dl (8.6-10.3); Creatinine Clr Calc Pharmacy 152.4 ml/min; Est GFR (African American) 139.8 ml/min; Est GFR (Non-African American) 120.6 ml/min; Magnesium 1.8 mg/dl (1.7-2.4); Potassium 3.4 mmol/L (3.5-5.1)
[2023-05-26] MEDS ORDERED: POTASSIUM CHLORIDE CRTAB 20 MEQ TABCR PO STA (08:44)
--- NOTE | 2023-05-26 08:47 | Hospitalist Progress Note ---
Date of Service May 26, 2023 Assessment & Plan (1) Intractable vomiting with nausea: Plan: Patient with cyclic vomiting. Notes that he is starting to feel slightly better after receiving medications in the ER. Still with persistent nausea requiring inpatient admit -Observation to medical -Zofran, phenergan prn IVF, continued LR @ 80cc/hr Valium 2mg PO x 1, baclofen TID prn back spasms. ? from hyperglycemia w/ BSG 419 overnight Some nausea/back spasm pain but no further vomiting reported Protonix increased to BID (esophagitis possible on CTAP on admit) Diet as tolerated Repeating labs/electrolyte replacement as indicated Pharmacy consulted for glycemic management (into 400s on arrival, repeat A1c in AM -- reports ~150s at home) Patient developed severe back spasm in the ER. He reports that he gets them frequently when he is in the hospital with nausea. Given Valium 5mg po Ordered Morphine 2mg IV Heating pad Baclofen as above, valium 2mg x 1 - can order additional dose for tonight if needed 05/26 -- no further vomiting. (2) Diabetes type 1, uncontrolled: Plan: Not in DKA on admission reported, ?early DKA UA w/ 4+ ketones/anion gap 21 on labs 05/24 AM (was dc in AM, represented to ER, Anion gap TNP). VBG w/ pH 7.41, HCO3 24. Glu 215 on admission was placed on Lantus 15u BID scheduled on admission Had BSG to 419 overnight, BSGs to 190s presently, on sliding scale insulin Continued IVF w/ LR, may need to add d5 to am labs, not great PO intake Ordered glycemic consult for assistance Repeat labs for today, A1c w/ AM labs -> 7.8 (prior 8.2) Monitor BSGs (3) Esophagitis: Plan: Noted on CT imaging. Likely secondary to ongoing vomiting Protonix 40mg IV daily ordered, increased to BID. If no further n/v can convert to PO BID in AM Monitor bowel movements, hx gastroparesis. Underdistention of colon on admission CTAP Plan continued inpatient stay Admission and Anticipated Discharge Date Admission Date: May 25, 2023 Results & Data Results & Data Vital Signs (Past 12 Hours) Vital Signs Temp Pulse Resp BP Pulse Ox O2 Del Method 05/26/23 07:16 36.9 C 81 16 123/77 98 Room Air PG Care Time/CCT Total # of Minutes Spent Total Time Spent with Patient: Total time spent is greater than 50% in coordination of care (as documented) at patient's floor/unit and/or counseling patient: Coding Diagnoses Intractable vomiting with nausea R11.2 Diabetes type 1, uncontrolled E10.65 Glycemic state: with hyperglycemia Esophagitis K20.90 (2) Diabetes type 1, uncontrolled Glycemic state: with hyperglycemia Qualified Code(s): E10.65 - Type 1 diabetes mellitus with hyperglycemia
[2023-05-26] MEDS ORDERED: LANTUS PER UNIT CHARGE SQ SCH (09:00)
[2023-05-26] MEDS: INSULIN ASPART PER UNIT CHARGE SC SCH (09:18)
--- NOTE | 2023-05-26 10:05 | Pharmacy Report ---
Pharmacy Glycemic Short Note 2 - Date of Service May 26, 2023 - Glycemic Short BSG Results (Last 24 hours): 05/25/23 05/25/23 05/25/23 11:34 15:17 16:33 Glucose 157 H POC Glucose 192 H 177 H 05/25/23 05/26/23 05/26/23 20:17 06:40 07:32 Glucose 167 H POC Glucose 154 H 164 H OUTPATIENT ANTIDIABETIC REGIMEN: * 45 units of Lantus daily (per diabetes visit 11/10/22) * 10 units of bolus insulin with meals (per diabetes visit 11/10/22) * HbA1c 8.2% 11/30/22 * HbA1c 7.8% 05/26/23 ASSESSMENT: 05/26/23 * Patient received 29 units of insulin yesterday, 20 units basal, no HS basal needed. * Fasting BG 164mg/dl this morning, continue with 20 units Lantus daily, and PRN HS order. * Continue CF/CR, blood sugars well controlled for type 1 diabetic. * Type 1 DM diet. 05/25/23 * Luis is a 28 YOM admitted with nausea and vomiting and a history of T1DM. Pharmacy has been consulted for glycemic management while inpatient. * BSG elevated this AM, likely not fasting BSG, diet ordered overnight, 20 units of Lantus given this AM, previously required around 20-25 units of Lantus on previous admissions, will add a scale at bedtime based on BSG * Loose carb ratio ordered, will tighten NovoLog parameters to values slightly looser than previous parameters PLAN FOR INPATIENT GLYCEMIC CONTROL: * Basal insulin * Lantus 20 units QAM * Lantus 0-10 units HS (see eMAR for additional details) * Bolus insulin * NovoLog per scale ACHS or Q6hrs while NPO * Goal Range: Low 110 mg/dL - High 140 mg/dL * Correction Factor: 35 mg/dL/unit * Nutritional / Prandial insulin per carb ratio of 1 unit per 12 grams CHO consumed
--- NOTE | 2023-05-26 10:36 | Discharge Summary ---
Date of Service May 26, 2023 Admission HPI Per Admitting Provider Luis Tijerina is a 28yo male returning to the ER again with ongoing nausea and vomiting. His symptoms began yesterday at 0200. Patient has not been able to tolerate po intake. He was seen in the ER earlier today with similar complaints - was prescribed Zofran which he has been taking without improvement. He reports multiple episodes of vomiting with some dark red blood in the emesis at times. No diarrhea. No fever, chills, cough, SOB. Patient given multiple medications in the ER without improvement ER Course: Zofran NSS x 2.5L Phenergan Benadryl Protonix Valium Admission Exam Per Admitting Provider General: patient resting comfortably, NAD, non-toxic in appearance, AA&O x 4 Skin: warm, dry, intact, no rashes or lesions HEENT: NC/AT, PERRL, EOMI, anicteric sclera, conjunctiva without injection, external ear normal to inspection and nontender, nares patent, moist mucus membranes, dentition intact, no oropharyngeal lesions, neck supple, trachea midline, no LAD, no thyromegaly, no JVD Heart: +S1/S2, regular, no m/r/g Lungs: equal air entry bilaterally, no rales/rhonchi/wheezes Abd: +BS, soft, NT/ND, no masses/organomegaly/ascites Ext: warm, 2+ pulses in UE/LE bilaterally, no clubbing/cyanosis or edema Neuro: nonfocal, patient AA&O x 4, speech intact, no facial droop, moving all extremities on command with equal strength 5/5 Principal Diagnosis Nausea/Vomiting, electolyte imbalance Discharge Exam General: patient resting comfortably in bed, improved appearing, reporting ready for discharge alert/oriented x 3 HEENT: normocephalic, atraumatic, mm improved, trachea midline Resp: CTA no w/c/r, slightly diminished in the bases, on room air CV: RRR, no significant m/r/g, no pitting edema, pulses palpable GI: +BS, soft/NT MSK/Neuro: nonfocal , no slurred speech/facial droop, following commands kyphosis mild tenderness lumbar spine, no obvious step off/bruising Psych: alert, oriented x 3, cooperative with exam Discharge Data Allergies Allergy/AdvReac Type Severity Reaction Status Date / Time Cephalosporins Allergy Intermediate Hives Verified 05/24/23 22:20 Sulfa (Sulfonamide Allergy Intermediate Hives Verified 05/24/23 22:20 Antibiotics) azithromycin [From Zithromax] AdvReac Intermediate Hives Verified 05/24/23 22:20 Consultations 05/25/23 01:12 ED Decision to Admit Stat Ordered Studies Abdomen/Pelvis CT 05/24/23 22:13 Exam(s): CT ABDOMEN + PELVIS With Contrast IV Amt: 87 ml optiray 320 EXAM: CT Abdomen and Pelvis With Intravenous Contrast CLINICAL HISTORY: Reason for exam: abdominal pain. TECHNIQUE: Axial computed tomography images of the abdomen and pelvis with intravenous contrast. Automated exposure control was utilized for the study. A dose lowering technique was utilized adhering to the principles of ALARA. CONTRAST: Patient received 87 ml optiray 320 of IV contrast COMPARISON: CT abdomen and pelvis 07/22/2022. FINDINGS: Lung bases: Unremarkable. No mass. No consolidation. Mediastinum: Wall thickening of the esophagus. ABDOMEN: Liver: Unremarkable. No mass. Gallbladder and bile ducts: Cholecystectomy. No ductal dilation. Pancreas: Unremarkable. No mass. No ductal dilation. Spleen: Unremarkable. No splenomegaly. Adrenals: Unremarkable. No mass. Kidneys and ureters: Unremarkable. No solid mass. No hydronephrosis. Stomach and bowel: Wall thickening versus underdistention of the colon. PELVIS: Appendix: No findings to suggest acute appendicitis. Bladder: Unremarkable. No mass. Reproductive: Unremarkable as visualized. ABDOMEN and PELVIS: Intraperitoneal space: Unremarkable. No free air. No significant fluid collection. Bones/joints: Endplate Schmorl's nodes with associated mild anterior vertebral body height loss and focal kyphosis from T11-L1 may represent Scheuermann's disease. Chronic compression fracture of L3, unchanged. No dislocation. Soft tissues: Unremarkable. Vasculature: Unremarkable. No abdominal aortic aneurysm. Lymph nodes: Unremarkable. No enlarged lymph nodes. IMPRESSION: 1. Wall thickening of the esophagus. This may represent esophagitis in appropriate clinical scenario. 2. Wall thickening versus underdistention of the colon. This could represent colitis in the appropriate clinical scenario. Electronically signed by: Jeanmarie Ortiz MD 05/24/23 23:46 PM Hospital Course (1) Intractable vomiting with nausea: Patient with cyclic vomiting. Notes that he is starting to feel slightly better after receiving medications in the ER. Still with persistent nausea requiring inpatient admit Antiemetics/supportive care/electrolyte replacement Continued IVF w/ hyperglycemia 419s overnight, electrolyte replacement for magnesium/potassium w/ improvement in nausea/vomiting (no further vomiting) since PPI increased to BID and tolerance of diet without further nausea/vomiting for esophagitis on imaging on admission. LFTs wnl WBC normalized on repeat, suspect elevation from stress/reactive from nausea/vomiting Patient tolerating diet without further issues, reports has antiemetics at home and stable for dc. Sent on PPI BID, f/u PCP/ref to GI if needed. Also sent with baclofen for back spasms (noting chronic compression fracture @ L3 - vitamin D level checked and <7 -- ergocalciferol started and continued at dc). To f/u PCP/chiropractor as patient wishing in follow up (2) Diabetes type 1, uncontrolled: Not in DKA on admission reported, although ?early DKA UA w/ 4+ ketones/anion gap 21 on labs 05/24 AM (was dc in AM, represented to ER, Anion gap TNP- prior 21 when dc), AG 9 on repeat w/ continued IVF given VBG pH 7/41 HCO3 24 and Glu 215 on admit but up to 419 overnight. Pharmacy consulted for glycemic management, BSGs stable. Repeat A1c 7.8 and continued home medications at discharge (3) Esophagitis: Noted on CT imaging. Likely secondary to ongoing vomiting PPI increased to BID w/ good effect and continued PPI BID at discharge (4) Vitamin D deficiency: low <7 -- ergocalciferol weekly, follow up pcp recommended (5) Back spasm: reported occurs when he has nausea/vomiting. medicated in ER, valium x 1 repeated and made baclofen available which was continued at dc Imaing w/ chronic compression fracture, no new trauma reported. Short course baclofen at dc, can continue heat/topical OTC voltaren as well F/u PCP/chiropractor as above Total Time Total Time Spent Total Time Spent (In Minutes): 45 Discharge Plan Discharge Items Patient Disposition: Home - Self-Care Reason For Visit: INTRACTABLE NAUSEA Discharge Diagnosis: Intractable nausea/vomiting, esophagitis Goals: You have been hospitalized for an acute medical problem. During your stay at [facility], we have made an effort to correct the problem that brought you to the hospital while keeping you as comfortable as possible. Medications were used to bring your condition under control and your discharge instructions will include directions for any medications you should take after leaving the hospital. Please make sure you see your Primary Care Provider as part of your follow up plan. Activity: Resume your previous activity Non-emergency contact: Primary Care Provider Call non-emergency contact if: you have any medication questions, your symptoms worsen, your pain is not controlled and you have a fever Follow-up/Referrals: Oneil Tinajero MD [Primary Care Provider] - 06/03/23 9:05 am Diet: Carb Count or DM1 Addtl Attending Provider Instructions: You have been hospitalized for abdominal pain, nausea and vomiting. Imaging showed evidence for irritation to your esophagus. Your protonix was increased to twice daily and should be continued as such at discharge. Your electrolytes were replaced, likely due to nausea/vomiting and decreased oral intake and have improved/stabilized. You did have a compression fracture noted in the back as discussed, and vitamin D level was checked which was VERY low and you have been started one replacement which should be once weekly and then follow up with primary care about continued daily dosing. We have sent a short prescription for baclofen for back spasms as discussed. Please follow up with primary care in the next 7-10 days to monitor your progress after discharge. Please return to the ER with any fever/chills, inability to keep up with oral intake, uncontrolled pain, or for any other symptoms concerning for you. It has been a pleasure being a part of the medical team providing for you while you have been in the hospital. Take care! Pending Studies at Discharge: No Stand-Alone Forms: [facility], Pain - Opioid Pain Management Medications and DC Order Prescriptions: New baclofen 10 mg Tablet 10 mg PO TID PRN (Reason: muscle spasm) Qty: 12 0RF ergocalciferol (vitamin D2) 1,250 mcg (50,000 unit) capsule 50,000 unit PO Q7D Qty: 4 0RF Continued Baqsimi 3 mg/actuation spray,non-aerosol 3 mg INTNAS DIRECTED PRN (Reason: Hypoglycemia) Qty: 2 1RF (DME) Contour Next Test Strips Strip See Rx Instructions .Route Qty: 400 3RF Rx Instructions: Test blood sugar four times daily insulin aspart U-100 [Novolog U-100 Insulin aspart] 100 unit/mL solution See Rx Instructions subcut .COMPLEX Qty: 60 2RF Rx Instructions: CARB RATIO 1 UNIT TO 35 CARBS. melatonin 5 mg Tablet 5 mg PO HS ondansetron HCl 4 mg tablet 4 mg PO TID PRN (Reason: nausea and vomiting) 5 Days Qty: 15 0RF promethazine 25 mg tablet 25 - 50 mg PO Q6H PRN (Reason: nausea and vomiting) Qty: 30 0RF Changed pantoprazole 40 mg tablet,delayed release (DR/EC) 40 mg PO BID 30 Days Qty: 60 0RF Rx Instructions: DID NOT START YET PER PT. Discharge Orders: Discharge Order (Routine); Ordered 05/26/23 Ordered By: Neha Mccarty/Other Patient Handouts: Managing Type 1 Diabetes Admission Data Admit Date/Time: 05/25/23 01:28 Attending Provider: Marlo Guillen Admit Provider: Gisselle Navarro Primary Care Provider: Oneil iTnajero Other Providers: Gisselle Navarro Other Interventions: Discharge Summary Assessment (RN) Last Done: 05/26/23 10:48 Supervising Physician Co-Signing Physician Notes The patient was not seen by me. The chart was reviewed. Case discussed with ALLYN Santos. Agree with assessment and plan. He is medically stable for discharge home today, May 26 Coding Level of Care Code 67322 INP/OBS DISCH >30 MIN Diagnoses Intractable vomiting with nausea R11.2 Diabetes type 1, uncontrolled E10.65 Glycemic state: with hyperglycemia Esophagitis K20.90 Vitamin D deficiency E55.9 Back spasm M62.830
[2023-05-26] MEDS ORDERED: LANTUS PER UNIT CHARGE SC SCH (21:00)
[2023-05-27 15:27] LABS: Amphetamine Urine, Confirm 892 ng/mL (<250); Marijuana Quant, GCMS Urine 1091 ng/mL (<5); Methamphetamine, Ur Confirm 5184 ng/mL (<250)
== END 2023-05-26 12:14 | disposition home or self-care (01) ==
LOC: ED 18:50 → 3W 18:50 → SUATTDRO 05-25 01:28 → 3W 05-25 04:01

== ENCOUNTER 2023-09-14 08:49 | Observation (INO) ==
--- NOTE | 2023-09-14 09:09 | Emergency Department Note ---
Impression & Plan Cannabinoid hyperemesis syndrome, Acute dehydration, Acute hypokalemia, Elevated glucose ED Provider Note NAME: ANISH SINGH AGE: 28 SEX: M : 1995 ARRIVES VIA: Walk-In INFORMANT: Patient ED PROVIDER(S): Jose Greene DO CHIEF COMPLAINT: N/V HPI: Patient is a 28-year-old male with past medical history of hyperemesis secondary to cannabinoid abuse, opiate abuse, hepatitis C who presents the ER for nausea and vomiting which started around 2 AM this morning. He denies any headache or change in vision. No chest pain or shortness of breath. He admits to crampy abdominal pain which consistent with these episodes as well as chronic back pain which is unchanged. He denies any dysuria, urgency, or frequency. No other exacerbating or remitting factors. He notes his blood sugars have been normal. ADDITIONAL HISTORY OBTAINED: Per HPI Chronic Medical/Social Conditions Affecting Care: Per HPI PAST MEDICAL HISTORY:See Below PAST SURGICAL HISTORY:See Below FAMILY HISTORY:See Below SOCIAL HISTORY:See Below HOME MEDICATIONS:See Below ALLERGIES:See Below VITALS:See Below PHYSICAL EXAMINATION: GENERAL: Sitting up in bed, disheveled, alert EYE EXAM: normal conjunctiva. OROPHARYNX: Dry mucous membranes NECK: supple, no nuchal rigidity, no adenopathy, non-tender LUNGS: Clear to auscultation. Normal chest wall mechanics HEART: no murmurs, S1 normal and S2 normal ABDOMEN: abdomen soft, non-tender, normo-active bowel sounds, no masses, no rebound or guarding. BACK: Back is symmetrical on inspection and there is no deformity, no midline tenderness, no CVA tenderness. UPPER EXTREMITIES: upper extremities are grossly normal. LOWER EXTREMITIES: No pitting edema. NEURO EXAM: Normal sensorium, cranial nerves II-XII grossly intact, normal speech, no gross weakness of arms, no gross weakness of legs. MEDICAL DECISION MAKING: Patient is a 28-year-old male who presents ER for above-stated complaint for nausea vomiting unable to keep anything down. IV was established blood was obtained. Labs show mild leukocytosis of 12,000. No significant anemia. VBG with a pH 7.43. BMP with CO2 of 19 and a gap of 20. Glucose was mildly elevated at 130 and trended up to 210. LFTs bilirubin was unremarkable. Lipase normal. UA with a fair amount of ketones but no signs of infection. He was given 3 L of IV fluids in combination with Zofran, Reglan and Phenergan. He still had some vomiting. He was discussed with the hospitalist for further evaluation management treatment. Consults/Care Managements Discussions: Per [facility] Triage Nursing notes reviewed. Limited review of prior medical records performed Vital Signs: reviewed and remarkable for tachy Differential diagnosis: Differential diagnoses includes but is not limited to gastritis, peptic ulcer disease, GERD, gallbladder disease, pancreatitis, small bowel obstruction, appendicitis, diverticulitis, hernia, urinary tract infection, torsion, perforation, trauma, infectious. ER treatment provided: See below Diagnostics interpreted by me include EKG and cardiac monitoring as listed below: -Cardiac Monitoring: An order was placed for continuous cardiac monitoring. The monitor shows a rate of 92 with sinus rhythm. -ECG: none -Laboratory studies:Interpreted by me as stated above in MDM and shown below. Imaging studies: Xrays: As interpreted by me: Obstruction series showed no obvious bowel obstruction CTs show: none Procedures:none Critical Care: None Past Med/Surg History Medical History (Updated 09/14/23 @ 14:55 by Jose Greene DO) Nausea & vomiting Intractable vomiting with nausea Choledocholithiasis Cholelithiasis Diabetes type 1, uncontrolled Hypokalemia Hypomagnesemia Intractable cyclical vomiting with nausea Hematemesis Methadone dependence Cyclic vomiting syndrome Gastroparesis Marijuana use Intractable vomiting with nausea History of opioid abuse Type I diabetes mellitus Soft tissue abscess Anemia Pneumomediastinum Hepatitis Surgical History Hx laparoscopic cholecystectomy (07/27/22) Laparoscopic Cholecystectomy, Repair of Incidental Enterotomy - Carlos Vigil DO Family History Father Valvular heart disease Mother Hypothyroidism Other Cancer Diabetes Heart disease Hypertension Social History Smoking Status: Never smoker Tobacco Type: E-cigarettes / Vaping Cigarettes Per Day: 3; Second Hand Exposure: No; Do You Dip or Chew Tobacco: No; Hx Alcohol Use: No Hx Substance Use: Yes Prescribed Medications: Opiates Non-Prescribed Medications: Marijuana Last Used Substance: Days (ago) Last Used Substance Other:: Medical Marijuana Substance Use Type Other:: 1 week ago Preferred Language: Nepali Communication Ability: Effective Telecommunications Facility Examiner Required: No Beliefs That Will Affect Care: None marital status: Single Current Living Situation: Parent current occupational status: unemployed How many Children do You have: 0 Feels Safe at Home: Yes Diet: diabetic during the past year weight has: decreased > 10 lbs Assistive Devices: None Allergies Allergies Allergy/AdvReac Type Severity Reaction Status Date / Time Cephalosporins Allergy Intermediate Hives Verified 09/14/23 11:15 Sulfa (Sulfonamide Allergy Intermediate Hives Verified 09/14/23 11:15 Antibiotics) azithromycin [From Zithromax] AdvReac Intermediate Hives Verified 09/14/23 11:15 Home Meds Home Medications Medication Instructions Recorded Confirmed insulin aspart U-100 100 unit/mL 0 unit continuous subcutaneous 07/31/23 09/14/23 subcutaneous solution infusion CONTINOUS Previous Rx's Medication Instructions Recorded blood sugar diagnostic (Contour #400 ea 08/06/21 Next Test Strips) glucagon 3 mg/actuation nasal 3 mg intranasal DIRECTED PRN 11/02/21 spray (Baqsimi) Hypoglycemia #2 ea Results & Data (ED) Vital Signs Vital Signs - 24 hr 09/14/23 08:53 09/14/23 09:30 09/14/23 09:51 Temperature 36.8 C Temperature Source Temporal Artery Scan Pulse Rate 100 H 101 H 84 Respiratory Rate 18 13 Respiratory Effort / Characteristics Non-Labored Spontaneous Respiratory Depth Normal Respiratory Pattern Regular Blood Pressure 126/87 Blood Pressure Mean 100 Pulse Oximetry 97 Oxygen Delivery Method Room Air Sepsis Recent Fever Within 48 Hours No Sepsis New/Unexplained Change in Mental Status No Sepsis Action Taken by Nursing No Action Required 09/14/23 10:00 09/14/23 11:00 09/14/23 11:33 Temperature Temperature Source Pulse Rate 94 H 107 H 95 H Respiratory Rate 12 14 17 Respiratory Effort / Characteristics Respiratory Depth Respiratory Pattern Blood Pressure 122/91 Blood Pressure Mean 101 Pulse Oximetry 96 Oxygen Delivery Method Room Air Sepsis Recent Fever Within 48 Hours Sepsis New/Unexplained Change in Mental Status Sepsis Action Taken by Nursing Laboratory Data 09/14/23 09:07 09/14/23 09:07 Lab Results 09/14/23 09/14/23 09/14/23 Range/Units 09:07 09:43 11:00 WBC 12.38 H (4.8-10.8) K/ul RBC 5.25 (4.70-6.10) M/uL Hgb 15.6 (14.0-18.0) g/dl Hct 45.6 (42.0-52.0) % MCV 86.9 (80.0-100.0) fL MCH 29.7 (25.0-34.0) pg MCHC 34.2 (32.0-36.0) g/dL RDW Std Deviation 38.2 (36.4-46.3) fL RDW Coeff of Carlos 12.0 (11.5-14.5) % Plt Count 332 (130-400) K/uL MPV 10.1 (9.4-12.4) fL Immature Gran % (Auto) 0.5 % Neut % (Auto) 81.4 % Lymph % (Auto) 11.2 % [place] % (Auto) 5.8 % Eos % (Auto) 0.7 % Baso % (Auto) 0.4 % Neut # (Auto) 10.07 H (1.40-6.50) K/uL Lymph # (Auto) 1.39 (1.20-3.40) K/uL [place] # (Auto) 0.72 H (0.11-0.59) K/uL Eos # (Auto) 0.09 (0.00-0.50) K/uL Baso # (Auto) 0.05 (0.00-0.20) K/uL Immature Gran # (Auto) 0.06 (0.01-0.20) K/uL VBG pH 7.43 H (7.36-7.41) VBG pCO2 30 L (38-50) mmHg VBG pO2 46 mmHg VBG HCO3 20 mmol/L VBG O2 Saturation 82.2 % VBG Base Excess -3.3 mEq/L Sodium 141 (136-145) mmol/L Potassium 3.8 (3.5-5.1) mmol/L Chloride 102 (98-107) mmol/L Carbon Dioxide 19 L (21-32) mmol/L Anion Gap 20 H (3-11) BUN 15 (6-23) mg/dl Creatinine 0.95 (0.6-1.4) mg/dl Est Cr Clr Drug Dosing 132.2 ml/min Est GFR ( Amer) 126.6 ml/min Est GFR (Non-Af Amer) 109.3 ml/min BUN/Creatinine Ratio 15.8 (10-20) Glucose 131 H (70-99(Fasting)) mg/dl Calcium 10.1 (8.6-10.3) mg/dl Total Bilirubin 0.9 (0.2-1.0) mg/dl AST 14 (13-39) U/L ALT 9 (7-52) U/L Alkaline Phosphatase 85 (34-104) U/L Total Protein 8.1 (6.0-8.3) gm/dl Albumin 4.9 (3.4-5.0) gm/dl Globulin 3.2 (2.5-4.0) gm/dl Albumin/Globulin Ratio 1.5 (0.9-2) Lipase 11 (11-82) U/L Urine Color Yellow Urine Appearance Clear (Clear) Urine pH 5.5 (4.5-7.5) Ur Specific [place] >= 1.030 (1.000-1.030) Urine Protein 3+ H (Negative) Urine Glucose (UA) 2+ H (Negative) Urine Ketones 4+ H (Negative) Urine Blood Trace-intact H (Negative) Urine Nitrite Negative (Negative) Urine Bilirubin 1+ H (Negative) Urine Urobilinogen Negative (Negative) Ur Leukocyte Esterase Negative (Negative) Urine RBC 0-4 (0-4) /hpf Urine WBC 0-5 (0-5) /hpf Ur Epithelial Cells 5-10 H (0-5) /lpf Urine Bacteria 1+ H (Negative) Urine Mucus Present A (None Prsent) Urine Opiates Screen Neg (Neg) Ur Methadone, Qual Neg (Neg) Urine Barbiturates Neg (Neg) Ur Phencyclidine (PCP) Neg (Neg) U Amphetamin/Meth Scrn Pos H (Neg) MDMA (Ecstasy) Screen Pos H (Neg) U Benzodiazepines Scrn Neg (Neg) Ur Cocaine Metabolite Pos H (Neg) U Marijuana (THC) Screen Pos H (Neg) Administered Medications Lactated Ringer's (Lr) 1,000 mls @ 100 mls/hr IV .Q10H YUE Stop: 10/14/23 14:14 Last Admin: 09/14/23 14:36 Dose: 100 mls/hr Documented By: KJL Discontinued Medications Sodium Chloride (Nss) 1,000 mls @ 999 mls/hr IV .Q1H1M YUE Stop: 09/14/23 11:15 Last Admin: 09/14/23 13:29 Dose: 999 mls/hr Documented By: Infusion: 09/14/23 10:18 Dose: Infused Documented By: Admin: 09/14/23 09:17 Dose: 999 mls/hr Documented By: KAYCEE Parenteral Electrolytes (Plasma-Lyte A Ph 7.4) 1,000 mls @ 999 mls/hr IV .Q1H1M ONE Stop: 09/14/23 11:11 Last Infusion: 09/14/23 12:19 Dose: Infused Documented By: Admin: 09/14/23 11:15 Dose: 999 mls/hr Documented By: TESSY Promethazine HCl (Phenergan) 25 mg in 51 mls @ 204 mls/hr IV NOW STA Stop: 09/14/23 12:47 Last Infusion: 09/14/23 13:51 Dose: Infused Documented By: Admin: 09/14/23 13:33 Dose: 204 mls/hr Documented By: TESSY Pantoprazole Sodium 40 mg/ (Syringe) 10 mls @ 5 mls/min IV NOW ONE Stop: 09/14/23 13:16 Last Admin: 09/14/23 13:37 Dose: 5 mls/min Documented By: TESSY Famotidine (Pepcid 20mg Iv Push) 20 mg in 5 mls @ 2.5 mls/min IV NOW STA Stop: 09/14/23 13:00 Last Admin: 09/14/23 13:35 Dose: 2.5 mls/min Documented By: TESSY Lorazepam 0.5 mg/ Syringe 0.5 mls @ 2 mls/min IV ONE ONE; Protocol Stop: 09/14/23 14:31 Last Admin: 09/14/23 14:34 Dose: 2 mls/min Documented By: NILAM Insulin Glargine (Lantus Per Unit Charge) 30 units SQ NOW STA Stop: 09/14/23 12:53 Last Admin: 09/14/23 13:34 Dose: 30 units Documented By: TESSY Co-signed By: JUDE Lorazepam (Lorazepam 1 Mg/1 Ml Syr Ed Inj Use) 0.5 mg IV ONE STA Stop: 09/14/23 13:12 Last Admin: 09/14/23 14:35 Dose: Not Given Documented By: NILAM Metoclopramide HCl (Metoclopramide Hcl Inj 5 Mg/Ml 2 Ml Vial) 10 mg IV NOW STA Stop: 09/14/23 09:07 Last Admin: 09/14/23 09:15 Dose: 10 mg Documented By: KAYCEE Ondansetron HCl (Ondansetron Inj 2 Mg/Ml 2 Ml Vial) 4 mg IV NOW STA Stop: 09/14/23 10:12 Last Admin: 09/14/23 11:15 Dose: 4 mg Documented By: Imaging Data Radiologist's Impression: Chest/Abdomen X-ray 09/14/23 10:11 CHEST AND ABDOMEN 2 VIEWS HISTORY: Nausea. Vomiting. COMPARISON: Chest and abdominal series 04/03/2023. FINDINGS: The lungs are clear. The cardiomediastinal silhouette is within normal limits. There is no pneumoperitoneum or pneumatosis. The bowel gas pattern is unremarkable. No evidence for bowel obstruction. No renal or ureteral calculi. Prior cholecystectomy. IMPRESSION: No acute cardiopulmonary process. No evidence for bowel obstruction. ACT 112: Negative or not required by law. Electronically signed by: Thiago Francis M.D. 09/14/2023 11:41 AM Discharge Plan Visit Data Chief Complaint: Illness Stated Complaint: NAUSEA, VOMITING, BACK PAIN ED Provider: Jose Greene Discharge Problem: Cannabinoid hyperemesis syndrome, Acute dehydration, Acute hypokalemia, Elevated glucose Patient Disposition: Admitted As Inpatient Discharge Instructions Interventions: ED Discharge Assessment Last Done: 09/14/23 13:57
[2023-09-14] MEDS: METOCLOPRAMIDE HCL INJ 5 MG/ML 2 ML VIAL IV STA (09:15)
[2023-09-14] MEDS: SODIUM CHLORIDE 0.9% 1,000 ML IV SCH (09:17)
[2023-09-14 09:52] LABS: Basophils # (auto) 0.05 K/uL (0.00-0.20); Basophils % (auto) 0.4 %; Eosinophils # (auto) 0.09 K/uL (0.00-0.50); Eosinophils % (auto) 0.7 %; Hematocrit (blood only) 45.6 % (42.0-52.0); Hemoglobin 15.6 g/dl (14.0-18.0); Immature Granulocytes # (auto) 0.06 K/uL (0.01-0.20); Immature Granulocytes % (auto) 0.5 %; Lymphocytes # (auto) 1.39 K/uL (1.20-3.40); Lymphocytes % (auto) 11.2 %; Mean Corpuscular Hemoglobin 29.7 pg (25.0-34.0); Mean Corpuscular Hgb Conc 34.2 g/dL (32.0-36.0); Mean Corpuscular Volume 86.9 fL (80.0-100.0); Mean Platelet Volume 10.1 fL (9.4-12.4); Monocytes # (auto) 0.72 K/uL (0.11-0.59); Monocytes % (auto) 5.8 %; Neutrophils # (auto) 10.07 K/uL (1.40-6.50); Neutrophils % (auto) 81.4 %; Platelet Count 332 K/uL (130-400); RDW Standard Deviation 38.2 fL (36.4-46.3); Red Blood Count 5.25 M/uL (4.70-6.10); White Blood Count 12.38 K/ul (4.8-10.8)
[2023-09-14 09:55] LABS: Albumin Globulin Ratio 1.5 (0.9-2); Albumin Level 4.9 gm/dl (3.4-5.0); BUN Creatinine Ratio 15.8 (10-20); Bilirubin,Total 0.9 mg/dl (0.2-1.0); Calcium 10.1 mg/dl (8.6-10.3); Creatinine Clr Calc Pharmacy 132.2 ml/min; Est GFR (African American) 126.6 ml/min; Est GFR (Non-African American) 109.3 ml/min; Globulin 3.2 gm/dl (2.5-4.0); Potassium 3.8 mmol/L (3.5-5.1); Total Protein 8.1 gm/dl (6.0-8.3)
[2023-09-14 09:56] LABS: Base Excess VBG -3.3 mEq/L; HCO3 VBG 20 mmol/L; Oxygen Saturation VBG 82.2 %; PCO2 VBG 30 mmHg (38-50); PO2 VBG 46 mmHg; pH VBG 7.43 (7.36-7.41)
[2023-09-14] MEDS: ONDANSETRON INJ 2 MG/ML 2 ML VIAL IV STA (11:15)
[2023-09-14] MEDS: PLASMA-LYTE A 1,000 ML IV ONE (11:15)
[2023-09-14 11:37] LABS: Appearance Urine Clear (Clear); Bilirubin Urine 1+ (Negative); Blood Urine Trace-intact (Negative); Color Urine Yellow; Glucose Urine UA 2+ (Negative); Ketones Urine 4+ (Negative); Leukocyte Esterase Urine Negative (Negative); Nitrite Urine Negative (Negative); Protein Urine 3+ (Negative); Specific Gravity Urine >= 1.030 (1.000-1.030); Urobilinogen Urine Negative (Negative); pH Urine 5.5 (4.5-7.5)
--- NOTE | 2023-09-14 11:42 | XRay Report ---
CHEST AND ABDOMEN 2 VIEWS HISTORY: Nausea. Vomiting. COMPARISON: Chest and abdominal series 04/03/2023. FINDINGS: The lungs are clear. The cardiomediastinal silhouette is within normal limits. There is no pneumoperitoneum or pneumatosis. The bowel gas pattern is unremarkable. No evidence for b owel obstruction. No renal or ureteral calculi. Prior cholecystectomy. IMPRESSION: No acute cardiopulmonary process. No evidence for bowel obstruction. ACT 112: Negative or not required by law. Electronically signed by: Thiago Francis M.D. 09/14/2023 11:41 AM
[2023-09-14 11:57] LABS: Bacteria Urine 1+ (Negative); Mucus Urine Present (None Prsent); RBC Urine 0-4 /hpf (0-4); WBC Urine 0-5 /hpf (0-5)
[2023-09-14] MEDS ORDERED: GLUCAGON FOR INJ 1 MG VIAL SQ PRN (12:43)
[2023-09-14] MEDS ORDERED: GLUCOSE 40% GEL 15 GM TUBE PO PRN (12:43)
[2023-09-14] MEDS ORDERED: CARBOHYDRATES FOR HYPOGLYCEMIA PO PRN (12:43)
[2023-09-14] MEDS ORDERED: GLUCOSE 10 TAB/TUBE PO PRN (12:43)
[2023-09-14] MEDS ORDERED: DEXTROSE 50% 50 ML SYRINGE IV PRN (12:43)
--- NOTE | 2023-09-14 12:44 | History & Physical Report ---
Date of Service September 14, 2023 Assessment & Plan (1) Nausea & vomiting: Plan: -Admit to the PCU on tele -Currently stable but still with uncontrolled nausea/vomiting -Presented to the ED with recurrent nausea/vomiting and back spasms which started last evening -Patient has been admitted multiple times in the past for a similar presentation, typically progresses to DKA -Has a hx of Cannabis and Cocaine use as well as gastroparesis, will obtain urine drug screen -S/P 2L NSS in the ED, currently receiving 1L LR bolus as well -Will continue maintenance LR after his bolus is complete until he can tolerate PO intake -Xray of the chest/abd/pelvis was negative for acute findings, patient states his pain is typical for this presentation -S/P one dose of IV zofran and Metoclopramide -Will be receiving 25 mg IV Promethazine ordered by the ED shortly -Will continue with prn Promethazine for now, can try zofran and/or Reglan again if needed -Will given 40 mg IV pantoprazole and 20 mg IV famotidine now >Continue daily IV pantoprazole and q12h IV famotidine until he can tolerate PO intake -Will obtain ECG to monitor QTc -Will give 0.5 mg IV ativan on admission to assist with uncontrolled nausea and muscle spasms -Strict NPO for now until nausea/vomiting are better controlled -OOB for DVT PPX -AM CBC, CMP, mag, PT/INR (2) High anion gap metabolic acidosis: Plan: -AG of 20 with bicarb of 19 on arrival to the ED -Noted to have respiratory compensation on VBG as pH was 7.43 with pCO2 of 30 and pO2 of 46 -Suspect that his elevated AG was initially due to dehydration, lactic acidosis, and ketosis, however, lactate was never obtained prior to IV fluid resuscitation -STAT lactate ordered on admission, after receiving 2L NSS bolus, was WNL at 1.2 -Glucose is currently 210 at time of evaluation, see Type 1 DM plan for further treatment details -Will repeat BMP, mag, and VBG this afternoon for further monitoring (3) Diabetes type 1, uncontrolled: Plan: -Normally takes 45 units HS lantus with a sliding scale -Did not have his HS lantus last night -Will give 10 units SQ lantus now as he is becoming more hyperglycemic since arrival -Will start q2h BSG checks with q2h CF of 50 for now -Continue treatment of his nausea/vomiting/dehydration -Will plan to start 20 units BID lantus for now -Pharmacy glycemic consult placed for close monitoring and dosing adjustments Plan The patient was discussed with Dr. Lara at the time of the admission History of Present Illness Chief Complaint: Nausea/vomiting Primary Care Provider: Oneil Tinajero MD Luis Tijerina is a 28yo male with a PMH significant for DMI with recurrent episodes of nausea/vomiting due to gastroparesis, recurrent admissions for DKA, marijuana abuse, and cocaine use who presented to the [facility] ED on 09/14/23 with recurrent nausea/vomiting. Vitals remained stable. Labs were significant for a WBC of 12 with neutrophil predominance of 10, VBG pH of 7.43 with pCO2 of 30 and pO2 of 46, AG of 20 with bicarb of 19, glucose of 210, lactate of 1.2, and UA with 3+ protein, 2+ glucose, 4+ ketones, 1+ bacteria, and 5-10 epithelial cells. Xrays of the chest/abd/pelvis was read as "No acute cardiopulmonary process. No evidence for bowel obstruction. ". Prior to admission the patient was given 2L NSS and given one dose of zofran, promethazine, was order an additional 1L LR bolus with a dose of promethazine. At the time of the exam the patient was sitting in bed and appears uncomfortable. He states that he started to develop recurrent nausea/vomiting last evening. He states that he is also experiencing his typical back pain/muscle spasms he normally gets with these episodes. He normally takes 45 units of lantus HS, he did not take his lantus last nigh. Denies recent fever, chills, chest pain, hematemesis, dysuria, hematuria, melena, and recent trauma. Please refer to Dr. Lara' attestation for any changes to the treatment plan Allergies Allergy/AdvReac Type Severity Reaction Status Date / Time Cephalosporins Allergy Intermediate Hives Verified 09/14/23 11:15 Sulfa (Sulfonamide Allergy Intermediate Hives Verified 09/14/23 11:15 Antibiotics) azithromycin [From Zithromax] AdvReac Intermediate Hives Verified 09/14/23 11:15 Home Medications Medication Instructions Recorded Confirmed Type blood sugar diagnostic (Contour #[id number] ea 08/06/21 11/10/22 Rx Next Test Strips) glucagon 3 mg/actuation nasal 3 mg intranasal DIRECTED PRN 11/02/21 09/14/23 Rx spray (Baqsimi) Hypoglycemia #2 ea insulin aspart U-100 100 unit/mL 0 unit continuous subcutaneous 07/31/23 09/14/23 History subcutaneous solution infusion CONTINOUS Past Med/Surg History Medical History (Updated 09/14/23 @ 13:20 by Diego Domínguez PA-C) Nausea & vomiting Intractable vomiting with nausea Choledocholithiasis Cholelithiasis Diabetes type 1, uncontrolled Hypokalemia Hypomagnesemia Intractable cyclical vomiting with nausea Hematemesis Methadone dependence Cyclic vomiting syndrome Gastroparesis Marijuana use Intractable vomiting with nausea History of opioid abuse Type I diabetes mellitus Soft tissue abscess Anemia Pneumomediastinum Hepatitis Surgical History Hx laparoscopic cholecystectomy (07/27/22) Laparoscopic Cholecystectomy, Repair of Incidental Enterotomy - Carlos Vigil DO Family History Father Valvular heart disease Mother Hypothyroidism Other Cancer Diabetes Heart disease Hypertension Social History Smoking Status: Never smoker Tobacco Type: E-cigarettes / Vaping Cigarettes Per Day: 3; Second Hand Exposure: No; Do You Dip or Chew Tobacco: No; Hx Alcohol Use: No Hx Substance Use: Yes Prescribed Medications: Opiates Non-Prescribed Medications: Marijuana Last Used Substance: Days (ago) Last Used Substance Other:: Medical Marijuana Substance Use Type Other:: 1 week ago Preferred Language: Nepali Communication Ability: Effective Demolitionist Required: No Beliefs That Will Affect Care: None marital status: Single Current Living Situation: Parent current occupational status: unemployed How many Children do You have: 0 Feels Safe at Home: Yes Diet: diabetic during the past year weight has: decreased > 10 lbs Assistive Devices: None Physical Exam Physical Exam: Physical Exam: General: In no acute distress, stated age, ill appearing but non-toxic HEENT: Normocephalic, atraumatic, no scleral icterus, pupils around round, symmetrical, and reactive to light, dry mucus membranes, trachea midline, no thyromegaly Chest/Pulm: No respiratory distress, symmetrical chest expansion, clear breath sounds throughout Cardiac: RRR, no murmurs noted Abdomen: Negative for ascites and bruising, normoactive bowel sounds, soft, non-tender to palpation throughout Musculoskeletal: Symmetrical and without signs of acute trauma, upper and lower extremities with full ROM, no atrophy, spasticity, or flaccidity Extremities: Radial, dorsalis pedis, and posterior tibial pulses are intact and symmetrical, no edema noted in the BL LE's Skin: Warm, dry, no rashes , lesions, or scars noted Neuro: Alert and oriented to person, place, month, year, and president, no focal defects, no tremors noted Psych: No acute distress, calm and cooperative during the exam Results & Data Results & Data Vital Signs (Past 12 Hours) Vital Signs Temp Pulse Resp BP Pulse Ox O2 Del Method 09/14/23 11:33 95 H 17 122/91 96 Room Air 09/14/23 11:00 107 H 14 09/14/23 10:00 94 H 12 09/14/23 09:51 84 09/14/23 09:30 101 H 13 09/14/23 08:53 36.8 C 100 H 18 126/87 97 Room Air Laboratory Results Abnormal lab results 09/14/23 09/14/23 09/14/23 Range/Units 09:07 09:43 11:00 WBC 12.38 H (4.8-10.8) K/ul Neut # (Auto) 10.07 H (1.40-6.50) K/uL Mccormick # (Auto) 0.72 H (0.11-0.59) K/uL VBG pH 7.43 H (7.36-7.41) VBG pCO2 30 L (38-50) mmHg Carbon Dioxide 19 L (21-32) mmol/L Anion Gap 20 H (3-11) Glucose 131 H (70-99(Fasting)) mg/dl POC Glucose (70-99) mg/dl Urine Protein 3+ H (Negative) Urine Glucose (UA) 2+ H (Negative) Urine Ketones 4+ H (Negative) Urine Blood Trace-intact H (Negative) Urine Bilirubin 1+ H (Negative) Ur Epithelial Cells 5-10 H (0-5) /lpf Urine Bacteria 1+ H (Negative) Urine Mucus Present A (None Prsent) 09/14/23 Range/Units 12:58 WBC (4.8-10.8) K/ul Neut # (Auto) (1.40-6.50) K/uL Mccormick # (Auto) (0.11-0.59) K/uL VBG pH (7.36-7.41) VBG pCO2 (38-50) mmHg Carbon Dioxide (21-32) mmol/L Anion Gap (3-11) Glucose (70-99(Fasting)) mg/dl POC Glucose 210 H (70-99) mg/dl Urine Protein (Negative) Urine Glucose (UA) (Negative) Urine Ketones (Negative) Urine Blood (Negative) Urine Bilirubin (Negative) Ur Epithelial Cells (0-5) /lpf Urine Bacteria (Negative) Urine Mucus (None Prsent) Diagnostic Findings Chest/Abdomen X-ray 09/14/23 10:11 CHEST AND ABDOMEN 2 VIEWS HISTORY: Nausea. Vomiting. COMPARISON: Chest and abdominal series 04/03/2023. FINDINGS: The lungs are clear. The cardiomediastinal silhouette is within normal limits. There is no pneumoperitoneum or pneumatosis. The bowel gas pattern is unremarkable. No evidence for bowel obstruction. No renal or ureteral calculi. Prior cholecystectomy. IMPRESSION: No acute cardiopulmonary process. No evidence for bowel obstruction. ACT 112: Negative or not required by law. Electronically signed by: Thiago Francis M.D. 09/14/2023 11:41 AM ECG Additional Comments: Will obtain at the time of the admission Code Status & VTE Plan Code Status Full code VTE Prophylaxis Plan VTE Prophylaxis will be ordered: Yes Supervising Physician Co-Signing Physician Notes I have personally seen, evaluated and examined the patient. I have also personally discussed the management of the patient with the resident physician/RADHIKA and I agree with the exam findings documented in the history and physical examination and the documented assessment and plan unless otherwise stated below. Brief Exam: In general pleasant 28-year-old male who is alert and oriented x 3 he is in moderate distress with his severe nausea and emesis currently. He is receiving a GI cocktail for his symptomatology. 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 HEENT is normocephalic atraumatic. Mucous membranes extremely dry. Heart: Borderline tachycardia on auscultation appears to be low 100s. Regular no murmur or ectopy or rub. Lungs: Clear bilaterally. Abdomen: Soft nontender hyperactive bowel sounds. Extremities: Intact no clubbing cyanosis or edema. Neurologically: He is intact with no focal deficit. Assessment/plan: As described above. Please refer to orders for further plan PG Care Time/CCT Total # of Minutes Spent Total Time Spent with Patient: Total time spent is greater than 50% in coordination of care (as documented) at patient's floor/unit and/or counseling patient: Coding [place] [address] INT INP/OBS CARE 3/75MIN Patient Type Established Medical Decision Making High Complexity Diagnoses Nausea & vomiting R11.2 High anion gap metabolic acidosis E87.29 Diabetes type 1, uncontrolled E10.65
[2023-09-14] MEDS ORDERED: PHARMACY GLYCEMIC MGMT CONSULT PRN (12:51)
--- NOTE | 2023-09-14 13:22 | Pharmacy Report ---
Pharmacy Glycemic Short Note 2 - Date of Service September 14, 2023 - Glycemic Short BSG Results (Last 24 hours): 09/14/23 09/14/23 09:07 12:58 Glucose 131 H POC Glucose 210 H OUTPATIENT ANTIDIABETIC REGIMEN: * Lantus 45 units HS; Novolog with meals * 7.8% 04/2023 ASSESSMENT: * Patient admitted with gastroparesis, does have anion gap and reduced bicarbonate, pH is 7.43. Initial management with subq insulin, insulin infusion if progresses despite fluid resuscitation/sub q insulin * Per hospitalist patient did not take home 45 units of lantus last night, will put in ~70% of home dose x 1 now(30 units)/ NPO, history of reduced need at this facility. * Patient is currently NPO, receiving LR @100 ml/hr, will initiate novolog with previous parameters at past visit. PLAN FOR INPATIENT GLYCEMIC CONTROL: * Hold outpatient oral diabetes medications * Basal insulin * Lantus 30 units SQ x1- re-eval tomorrow * Bolus insulin * NovoLog per scale ACHS or Q6hrs while NPO * Goal Range: Low 110 mg/dL - High 160 mg/dL * Correction Factor: 35 mg/dL/unit * Nutritional / Prandial insulin per carb ratio of 1 unit per 10 grams CHO consumed
[2023-09-14] MEDS: PROMETHAZINE 25 MG/51 ML BAG IV STA (13:33)
[2023-09-14] MEDS: LANTUS PER UNIT CHARGE SQ STA (13:34)
[2023-09-14] MEDS: FAMOTIDINE 20MG IV PUSH 20 MG/5 ML SYR IV STA (13:35)
[2023-09-14] MEDS: PANTOprazole 40 MG in SYRINGE 0 ML IV ONE (13:37)
[2023-09-14 13:53] LABS: Amphetamines+Metham, Urine Pos (Neg); Barbiturates, Urine Neg (Neg); Benzodiazepine, Urine Neg (Neg); Cocaine, Urine Pos (Neg); MDMA (Ecstacy), Urine Pos (Neg); Marijuana, Urine Pos (Neg); Methadone, Urine Neg (Neg); Opiate, Urine Neg (Neg); Phencyclidine, Urine Neg (Neg)
[2023-09-14] MEDS: LORazepam 0.5 MG in SYRINGE 0.25 ML IV ONE (14:34)
[2023-09-14] MEDS: LORazepam 1 MG/1 ML SYR ED Inj Use IV STA (14:35)
[2023-09-14] MEDS: LACTATED RINGER'S 1,000 ML IV SCH (14:36)
[2023-09-14] MEDS: INSULIN ASPART PER UNIT CHARGE SC SCH (16:04)
[2023-09-14 16:14] LABS: Base Excess VBG -0.5 mEq/L; HCO3 VBG 24 mmol/L; Oxygen Saturation VBG 82.8 %; PCO2 VBG 39 mmHg (38-50); PO2 VBG 49 mmHg
[2023-09-14 16:46] LABS: BUN Creatinine Ratio 16.3 (10-20); Calcium 8.6 mg/dl (8.6-10.3); Creatinine Clr Calc Pharmacy 149.3 ml/min; Est GFR (African American) 137.7 ml/min; Est GFR (Non-African American) 118.8 ml/min; Potassium 3.9 mmol/L (3.5-5.1)
--- NOTE | 2023-09-14 16:53 | Electrocardiogram Report ---
Test Reason : Blood Pressure : / mmHG Vent. Rate : 099 BPM Atrial Rate : 099 BPM P-R Int : 144 ms QRS Dur : 098 ms QT Int : 356 ms P-R-T Axes : 074 082 078 degrees QTc Int : 456 ms Sinus rhythm with marked sinus arrhythmia Possible Left atrial enlargement Incomplete right bundle branch block Borderline ECG When compared with ECG of 24-MAY-2023 22:24, No significant change was found Confirmed by Fabian Burciaga ([id number]) on 09/14/2023 4:52:41 PM Referred By: REFERRED SELF Confirmed By:Mikey Burciaga
[2023-09-14] MEDS: MAGNESIUM SULFATE / D5W 1 GM/100 ML BAG IV SCH (17:11)
[2023-09-14] MEDS: MoRPHine SULFATE 2 MG/ML CARP IV STA (17:33)
[2023-09-14] MEDS: METOCLOPRAMIDE HCL INJ 5 MG/ML 2 ML VIAL IV PRN (17:37)
[2023-09-14] MEDS: LIDOCAINE 5% 1 PATCH TD STA (20:31)
[2023-09-14] MEDS: FAMOTIDINE 20MG IV PUSH 20 MG/5 ML SYR IV SCH (20:35)
[2023-09-14] MEDS ORDERED: LANTUS PER UNIT CHARGE SQ SCH (21:00)
[2023-09-15] MEDS: MoRPHine SULFATE 2 MG/ML CARP IV STA (00:10)
[2023-09-15] MEDS: CYCLOBENZAPRINE HCL 10 MG TAB PO STA (01:09)
[2023-09-15] MEDS: MAGNESIUM SULFATE / D5W 1 GM/100 ML BAG IV SCH (01:10)
[2023-09-15 07:57] LABS: Estimated Average Glucose 192 mg/dl; Hemoglobin A1C 8.3 % (4.5-5.6)
[2023-09-15 08:55] LABS: Basophils # (auto) 0.06 K/uL (0.00-0.20); Basophils % (auto) 0.7 %; Eosinophils # (auto) 0.15 K/uL (0.00-0.50); Eosinophils % (auto) 1.8 %; Hematocrit (blood only) 35.4 % (42.0-52.0); Hemoglobin 12.2 g/dl (14.0-18.0); Immature Granulocytes # (auto) 0.03 K/uL (0.01-0.20); Immature Granulocytes % (auto) 0.4 %; Mean Corpuscular Hemoglobin 30.6 pg (25.0-34.0); Mean Corpuscular Hgb Conc 34.2 g/dL (32.0-36.0); Mean Corpuscular Volume 89.4 fL (80.0-100.0); Mean Platelet Volume 10.1 fL (9.4-12.4); Monocytes # (auto) 0.81 K/uL (0.11-0.59); Monocytes % (auto) 9.9 %; Neutrophils # (auto) 3.96 K/uL (1.40-6.50); Neutrophils % (auto) 48.2 %; Platelet Count 216 K/uL (130-400); RDW Coefficient of Variation 12.3 % (11.5-14.5); RDW Standard Deviation 40.5 fL (36.4-46.3); Red Blood Count 3.96 M/uL (4.70-6.10); White Blood Count 8.21 K/ul (4.8-10.8)
[2023-09-15 11:35] LABS: Albumin Globulin Ratio 1.6 (0.9-2); Albumin Level 3.7 gm/dl (3.4-5.0); BUN Creatinine Ratio 9.5 (10-20); Bilirubin,Total 0.6 mg/dl (0.2-1.0); Calcium 8.6 mg/dl (8.6-10.3); Est GFR (African American) 139.1 ml/min; Globulin 2.3 gm/dl (2.5-4.0); Potassium 3.4 mmol/L (3.5-5.1)
[2023-09-15 11:45] LABS: Magnesium 2.5 mg/dl (1.7-2.4)
[2023-09-15] MEDS: PANTOprazole 40 MG in SYRINGE 0 ML IV SCH (12:13)
[2023-09-15] MEDS: INSULIN ASPART PER UNIT CHARGE SC SCH (12:57)
--- NOTE | 2023-09-15 13:01 | Pharmacy Report ---
Pharmacy Glycemic Short Note 2 - Date of Service September 15, 2023 - Glycemic Short BSG Results (Last 24 hours): 09/14/23 09/14/23 09/14/23 12:58 15:52 20:07 Glucose 143 H POC Glucose 210 H 224 H 09/15/23 09/15/23 09/15/23 00:21 03:40 06:57 Glucose 112 H POC Glucose 288 H 239 H 09/15/23 09/15/23 07:46 11:54 Glucose POC Glucose 85 263 H OUTPATIENT ANTIDIABETIC REGIMEN: * Lantus 45 units HS; Novolog with meals * 7.8% 04/2023 ASSESSMENT: 09/14 * Patient received total of 36 units of insulin yesterday, of which 30 units were basal insulin * Fasting BSG 85 mg/dL - plan to scale back on basal. Based upon previous admissions typically requires closer to ~20 units of basal during hospitalizations. Plan to re-dose with basal again around dinner time, then hopefully get him on HS schedule thereafter which is when he takes it at home 09/13 * Patient admitted with gastroparesis, does have anion gap and reduced bicarbonate, pH is 7.43. Initial management with subq insulin, insulin infusion if progresses despite fluid resuscitation/sub q insulin * Per hospitalist patient did not take home 45 units of lantus last night, will put in ~70% of home dose x 1 now(30 units)/ NPO, history of reduced need at this facility. * Patient is currently NPO, receiving LR @100 ml/hr, will initiate novolog with previous parameters at past visit. PLAN FOR INPATIENT GLYCEMIC CONTROL: * Hold outpatient oral diabetes medications * Basal insulin * Lantus 20 units daily * Bolus insulin * NovoLog per scale ACHS or Q6hrs while NPO * Goal Range: Low 110 mg/dL - High 160 mg/dL * Correction Factor: 35 mg/dL/unit * Nutritional / Prandial insulin per carb ratio of 1 unit per 10 grams CHO consumed
[2023-09-15] MEDS ORDERED: LANTUS PER UNIT CHARGE SQ ONE (17:00)
--- NOTE | 2023-09-15 17:36 | Discharge Summary ---
Date of Service September 15, 2023 Admission HPI Per Admitting Provider Luis Tijerina is a 28yo male with a PMH significant for DMI with recurrent episodes of nausea/vomiting due to gastroparesis, recurrent admissions for DKA, marijuana abuse, and cocaine use who presented to the [facility] ED on 09/14/23 with recurrent nausea/vomiting. Vitals remained stable. Labs were significant for a WBC of 12 with neutrophil predominance of 10, VBG pH of 7.43 with pCO2 of 30 and pO2 of 46, AG of 20 with bicarb of 19, glucose of 210, lactate of 1.2, and UA with 3+ protein, 2+ glucose, 4+ ketones, 1+ bacteria, and 5-10 epithelial cells. Xrays of the chest/abd/pelvis was read as "No acute cardiopulmonary process. No evidence for bowel obstruction. ". Prior to admission the patient was given 2L NSS and given one dose of zofran, promethazine, was order an additional 1L LR bolus with a dose of promethazine. At the time of the exam the patient was sitting in bed and appears uncomfortable. He states that he started to develop recurrent nausea/vomiting last evening. He states that he is also experiencing his typical back pain/muscle spasms he normally gets with these episodes. He normally takes 45 units of lantus HS, he did not take his lantus last nigh. Denies recent fever, chills, chest pain, hematemesis, dysuria, hematuria, melena, and recent trauma. Please refer to Dr. Lara' attestation for any changes to the treatment plan Principal Diagnosis nausea/ vomiting. Discharge Exam General: In no acute distress HEENT: Normocephalic, atraumatic\\ Chest/Pulm: ]clear breath sounds throughout Cardiac: RRR, no murmurs noted Abdomen:soft, non-tender to palpation throughout Extremities: Radial, dorsalis pedis, and posterior tibial pulses are intact and symmetrical, no edema noted in the BL LE's Skin: Warm, dry, no rashes , lesions, or scars noted Neuro: Alert and oriented to person, place, time Psych: No acute distress, calm and cooperative during the exam Discharge Data Allergies Allergy/AdvReac Type Severity Reaction Status Date / Time Cephalosporins Allergy Intermediate Hives Verified 09/14/23 11:15 Sulfa (Sulfonamide Allergy Intermediate Hives Verified 09/14/23 11:15 Antibiotics) azithromycin [From Zithromax] AdvReac Intermediate Hives Verified 09/14/23 11:15 Consultations 09/14/23 13:56 ED Decision to Admit Stat Hospital Course (1) Nausea & vomiting: On admission: -Admit to the PCU on tele -Currently stable but still with uncontrolled nausea/vomiting -Presented to the ED with recurrent nausea/vomiting and back spasms which started last evening -Patient has been admitted multiple times in the past for a similar presentation, typically progresses to DKA -Has a hx of Cannabis and Cocaine use as well as gastroparesis, will obtain urine drug screen -S/P 2L NSS in the ED, currently receiving 1L LR bolus as well -Will continue maintenance LR after his bolus is complete until he can tolerate PO intake -Xray of the chest/abd/pelvis was negative for acute findings, patient states his pain is typical for this presentation -S/P one dose of IV zofran and Metoclopramide -Will be receiving 25 mg IV Promethazine ordered by the ED shortly -Will continue with prn Promethazine for now, can try zofran and/or Reglan again if needed -Will given 40 mg IV pantoprazole and 20 mg IV famotidine now >Continue daily IV pantoprazole and q12h IV famotidine until he can tolerate PO intake At discharge: Symptoms improved on 09/14 concern that this could be related to marijuana. explained to the patient. Patient will be discharged. (2) High anion gap metabolic acidosis: -AG of 20 with bicarb of 19 on arrival to the ED -Noted to have respiratory compensation on VBG as pH was 7.43 with pCO2 of 30 and pO2 of 46 -Suspect that his elevated AG was initially due to dehydration, lactic acidosis, and ketosis, however, lactate was never obtained prior to IV fluid resuscitation -resolved with fluids. (3) Diabetes type 1, uncontrolled: -Normally takes 45 units HS lantus with a sliding scale -Did not have his HS lantus last night -Will give 10 units SQ lantus now as he is becoming more hyperglycemic since arrival -Will start q2h BSG checks with q2h CF of 50 for now -Continue treatment of his nausea/vomiting/dehydration -Will plan to start 20 units BID lantus for now Total Time Total Time Spent Total Time Spent (In Minutes): 32 Discharge Plan Discharge Items Patient Disposition: Home - Self-Care Reason For Visit: NAUSEA, VOMITING, BACK PAIN Discharge Diagnosis: nausea/vomiting Activity: Resume your previous activity Non-emergency contact: Primary Care Provider Call non-emergency contact if: you have any medication questions Follow-up/Referrals: Oneil Tinajero MD [Primary Care Provider] - Diet: Regular Addtl Attending Provider Instructions: Please follow up with primary care in the next 7-10 days to monitor your progress after discharge. Please return to the ER with any fever/chills, inability to keep up with oral in take, uncontrolled pain, or for any other symptoms concerning for you. There is concern this nausea/vomiting could be due to marijuana use. Please try to quit this. Pending Studies at Discharge: No Stand-Alone Forms: My [facility] [employer], Smoking Cessation Medications and DC Order Prescriptions: Continued Baqsimi 3 mg/actuation spray,non-aerosol 3 mg INTNAS DIRECTED PRN (Reason: Hypoglycemia) Qty: 2 1RF (DME) Contour Next Test Strips Strip See Rx Instructions .Route Qty: 400 3RF Rx Instructions: Test blood sugar four times daily insulin aspart U-100 100 unit/mL solution 0 unit continuous subcutaneous infusion CONTINOUS MDD 60 UNITS/DAILY Discharge Orders: Discharge Order (Routine); Ordered 09/15/23 Ordered By: Darrick Mccarty/Other Patient Handouts: Managing Type 1 Diabetes Admission Data Admit Date/Time: 09/14/23 12:43 Attending Provider: Darrick Becker Admit Provider: Matthew Lara Primary Care Provider: Oneil Tinajero Other Providers: Matthew Lara Other Interventions: Discharge Summary Assessment (RN) Last Done: 09/15/23 18:43 Coding Level of Care Code 40650 INP/OBS DISCH >30 MIN Diagnoses Nausea & vomiting R11.2 High anion gap metabolic acidosis E87.29 Diabetes type 1, uncontrolled E10.65
[2023-09-15] MEDS: LANTUS PER UNIT CHARGE SQ SCH (18:36)
[2023-09-15] MEDS: POTASSIUM CHLORIDE CRTAB 20 MEQ TABCR PO STA (18:40)
[2023-09-16] MEDS ORDERED: INSULIN ASPART PER UNIT CHARGE SC SCH
[2023-09-18 17:33] LABS: Amphetamine Urine, Confirm 4990 ng/mL (<250); Cocaine, Urine 5520 ng/mL (<100); MDA negative; MDEA negative; MDMA (Ecstasy) Urine, Confirm negative; Marijuana Quant, GCMS Urine 1161 ng/mL (<5); Methamphetamine, Ur Confirm >15000 ng/mL (<250)
== END 2023-09-15 18:57 | disposition home or self-care (01) ==
LOC: ED 08:49 → 4W 08:49 → SUATTDRO 12:43 → 4W 13:57
DX: E10.65 Type 1 diabetes mellitus with hyperglycemia; Z88.2 Allergy status to sulfonamides; E87.6 Hypokalemia; F11.10 Opioid abuse, uncomplicated; E86.0 Dehydration; Z88.1 Allergy status to other antibiotic agents; F12.188 Cannabis abuse with other cannabis-induced disorder; B19.20 Unspecified viral hepatitis C without hepatic coma; Z79.4 Long term (current) use of insulin; E87.29 Other acidosis; K31.84 Gastroparesis; F17.290 Nicotine dependence, other tobacco product, uncomplicated; Z88.8 Allergy status to other drugs, medicaments and biological substances

== ENCOUNTER 2023-10-29 10:43 | Observation (INO) ==
--- NOTE | 2023-10-29 11:22 | Emergency Department Note ---
History of Present Illness General Chief complaint: Flu Like Symptoms Stated complaint: NAUSEA/VOMITING Time Seen by Provider: 10/29/23 10:59 History of Present Illness Provider Complaint: + nausea, + vomiting, + diarrhea and + abdominal pain Onset (ago): day(s) 1 Description of Vomiting: no bilious, no blood-streaked, no bloody or no coffee grounds Description of Diarrhea: no mucousy or no tarry Associated Abdominal Pain: Yes Location of pain: + diffuse Quality: + cramping Pain Consistency: + intermittent Relieved By: + none Exacerbated By: + vomiting Context: no foreign travel, no recent antibiotic use, no history of abdominal surgery, no alcohol abuse, no trauma, no anticoagulant use, no caffeine, no smoking or no marijuana use Associated symptoms: no myalgias, no chest pain, no cough, no diaphoresis, no fever/chills, no headaches, no dysuria, no syncope or no decreased urine output Home Medications Medication Instructions Recorded Confirmed Type blood sugar diagnostic (Contour #400 ea 08/06/21 11/10/22 Rx Next Test Strips) glucagon 3 mg/actuation nasal 3 mg intranasal DIRECTED PRN 11/02/21 10/29/23 Rx spray (Baqsimi) Hypoglycemia #2 ea insulin aspart U-100 100 unit/mL 0 unit continuous subcutaneous 07/31/23 10/29/23 History subcutaneous solution infusion CONTINOUS Allergies Allergy/AdvReac Type Severity Reaction Status Date / Time Cephalosporins Allergy Intermediate Hives Verified 09/14/23 11:15 Sulfa (Sulfonamide Allergy Intermediate Hives Verified 09/14/23 11:15 Antibiotics) azithromycin [From Zithromax] AdvReac Intermediate Hives Verified 09/14/23 11:15 Past Med/Surg History Medical History Nausea & vomiting Intractable vomiting with nausea Choledocholithiasis Cholelithiasis Diabetes type 1, uncontrolled Hypokalemia Hypomagnesemia Intractable cyclical vomiting with nausea Hematemesis Methadone dependence Cyclic vomiting syndrome Gastroparesis Marijuana use Intractable vomiting with nausea History of opioid abuse Type I diabetes mellitus Soft tissue abscess Anemia Pneumomediastinum Hepatitis Surgical History Hx laparoscopic cholecystectomy (07/27/22) Laparoscopic Cholecystectomy, Repair of Incidental Enterotomy - Carlos Vigil DO Family History Father Valvular heart disease Mother Hypothyroidism Other Cancer Diabetes Heart disease Hypertension Social History Smoking Status: Never smoker Tobacco Type: Smokeless Tobacco (Dip or Chew) Cigarettes Per Day: 3; Second Hand Exposure: No; Do You Dip or Chew Tobacco: Yes; Hx Alcohol Use: No Hx Substance Use: No Preferred Language: Moroccan Communication Ability: Effective Ship'S Surveyor Required: No Beliefs That Will Affect Care: None marital status: Single Current Living Situation: Parent current occupational status: unemployed How many Children do You have: 0 Feels Safe at Home: Yes Diet: diabetic during the past year weight has: decreased > 10 lbs Assistive Devices: None Physical Exam 2 Vital Signs: Vital Signs - 24 hr 10/29/23 10:48 10/29/23 11:35 10/29/23 11:35 Temperature 36.3 C L Temperature Source Temporal Artery Sc an Pulse Rate 86 112 H Pulse Rate [Right Finger] 112 H Pulse Rhythm Regular Respiratory Rate 16 20 20 Respiratory Effort / Characteristics Non-Labored Non-Labored Sponta neous Respiratory Depth Normal Normal Respiratory Patter n Regular Blood Pressure 143/93 H Blood Pressure [Le ft Arm] 134/95 Blood Pressure Valencia n 109 Blood Pressure Valencia n [Left Arm] 108 Blood Pressure Pos ition [Left Arm] Semi-fowlers Pulse Oximetry 99 100 100 Oxygen Delivery Me thod Room Air Room Air Room Air Sepsis Recent Feve r Within 48 Hours No Sepsis New/Unexpla ined Change in Men magdaleno Status No Sepsis Action Take n by Nursing No Action Required 10/29/23 11:59 10/29/23 12:39 10/29/23 13:50 Temperature Temperature Source Pulse Rate 99 H Pulse Rate [Right Finger] 90 84 Pulse Rhythm Respiratory Rate 14 18 Respiratory Effort / Characteristics Non-Labored Non-Labored Sponta neous Respiratory Depth Normal Normal Respiratory Patter n Regular Blood Pressure Blood Pressure [Le ft Arm] 140/93 161/89 H Blood Pressure Valencia n Blood Pressure Valencia n [Left Arm] 108 113 Blood Pressure Pos ition [Left Arm] Semi-fowlers Pulse Oximetry 99 100 Oxygen Delivery Me thod Room Air Sepsis Recent Feve r Within 48 Hours Sepsis New/Unexpla ined Change in Men magdaleno Status Sepsis Action Take n by Nursing 10/29/23 15:46 10/29/23 17:08 10/29/23 18:00 Temperature Temperature Source Pulse Rate Pulse Rate [Right Finger] 110 H 94 H 80 Pulse Rhythm Respiratory Rate 14 20 18 Respiratory Effort / Characteristics Non-Labored Sponta neous Non-Labored Sponta neous Non-Labored Sponta neous Respiratory Depth Normal Normal Normal Respiratory Patter n Regular Regular Regular Blood Pressure Blood Pressure [Le ft Arm] 111/61 144/104 H 124/93 Blood Pressure Valencia n Blood Pressure Valencia n [Left Arm] 77 117 103 Blood Pressure Pos ition [Left Arm] Semi-fowlers Semi-fowlers Semi-fowlers Pulse Oximetry 99 100 100 Oxygen Delivery Me thod Room Air Room Air Room Air Sepsis Recent Feve r Within 48 Hours Sepsis New/Unexpla ined Change in Men magdaleno Status Sepsis Action Take n by Nursing Physical Exam: Physical Exam GENERAL: She is oriented to person, place, and time. She appears well-developed and well-nourished. HENT: Exam performed. -Head: Normocephalic and atraumatic. -Mouth/Throat: The oropharynx is clear and moist. No trismus in the jaw. No dental abscesses or uvula swelling. No oropharyngeal exudate or tonsillar abscesses. EYES: Conjunctivae and EOM are normal.Right eye exhibits no discharge. Left eye exhibits no discharge. No scleral icterus. NECK: Normal range of motion. Neck supple. No JVD present. No tracheal deviation and normal range of motion present. CV: Normal rate, regular rhythm, normal heart sounds and intact distal pulses. There is no peripheral edema. Palpable radial pulses bue. PULM/CHEST: Effort normal and breath sounds normal. No respiratory distress. No stridor. She has no wheezes. She has no rales. -Chest Wall: She exhibits no tenderness. ABD: The abdomen is soft. She has no distension. No mass is present. There is no tenderness. There is no rebound, no guarding, no Lima's sign and no tenderness at McBurney's point. Rovsig negative MUSC/SKEL: Normal range of motion. There is no peripheral edema, tenderness or deformity. NEURO: Motor and sensation grossly intact. SKIN: Skin is warm and dry. She is not diaphoretic. PSYCH: She has a normal mood and affect. Behavior is normal. Judgment and thought content normal. Course Course 1059: The patient was evaluated in room B12. A complete history and physical exam was performed Cardiac monitoring: An order was placed for continuous cardiac monitoring. The monitor shows a rate of 90 with sinus rhythm interpreted by me 1235: Vital signs stable. Labs show an anion gap of 16 with a glucose of 270. Will give another liter of fluid and then recheck the patient's metabolic profile. Patient states his nausea is better but he still feels nauseous. 1345: Vital signs stable. Patient started having nausea and vomiting again. Zofran ordered for the patient. Repeat BMP will be sent off after 2 L normal saline infused. 1555: Vital signs stable. Repeat labs show a glucose of 225 anion gap of 14. Patient still having nausea and vomiting. Patient be admitted to [facility] team for intractable nausea and vomiting. Administered Medications Lactated Ringer's (Lr) 1,000 mls @ 100 mls/hr IV .Q10H [facility] Stop: 10/30/23 12:14 Last Admin: 10/29/23 16:25 Dose: 100 mls/hr Documented By: SAM Promethazine HCl 6.25 mg/ (Sodium Chloride) 50.25 mls @ 201 mls/hr IV Q6H PRN PRN Reason: Nausea And Vomiting Stop: 11/28/23 16:24 Last Infusion: 10/29/23 18:46 Dose: Infused Documented By: Admin: 10/29/23 18:30 Dose: 201 mls/hr Documented By: SAM Potassium Chloride (K Haja / Wtr) 10 meq in 100 mls @ 100 mls/hr IV Q1H [facility] Stop: 10/29/23 20:29 Last Admin: 10/29/23 18:35 Dose: 100 mls/hr Documented By: Infusion: 10/29/23 18:35 Dose: Infused Documented By: Admin: 10/29/23 17:35 Dose: 100 mls/hr Documented By: SAM Insulin Aspart (Insulin Aspart Per Unit Charge) 0 units SC ACHS YUE Stop: 11/28/23 16:29 Last Admin: 10/29/23 18:22 Dose: Not Given Documented By: SAM Co-signed By: NRB Discontinued Medications Diphenhydramine HCl (Diphenhydramine 50 Mg/Ml Vial) 25 mg IV NOW STA Stop: 10/29/23 11:01 Last Admin: 10/29/23 11:39 Dose: 25 mg Documented By: LMM Sodium Chloride (Nss) 1,000 mls @ 999 mls/hr IV .Q1H1M ONE Stop: 10/29/23 12:00 Last Infusion: 10/29/23 12:40 Dose: Infused Documented By: Admin: 10/29/23 11:39 Dose: 999 mls/hr Documented By: LMM Sodium Chloride (Nss) 1,000 mls @ 999 mls/hr IV .Q1H1M ONE Stop: 10/29/23 13:33 Last Infusion: 10/29/23 13:46 Dose: Infused Documented By: Admin: 10/29/23 12:40 Dose: 999 mls/hr Documented By: NRLoren Metoclopramide HCl (Metoclopramide Hcl Inj 5 Mg/Ml 2 Ml Vial) 5 mg IV ONE ONE Stop: 10/29/23 11:01 Last Admin: 10/29/23 11:39 Dose: 5 mg Documented By: LMM Ondansetron HCl (Ondansetron Inj 2 Mg/Ml 2 Ml Vial) 4 mg IV NOW STA Stop: 10/29/23 13:47 Last Admin: 10/29/23 13:51 Dose: 4 mg Documented By: SAM Medical Decision Making Laboratory Data Attestation: I reviewed the patient's lab results. 10/29/23 11:35 10/29/23 14:05 Lab Results 10/29/23 10/29/23 10/29/23 Range/Units 11:17 11:35 14:05 WBC 11.91 H (4.8-10.8) K/ul RBC 5.15 (4.70-6.10) M/uL Hgb 15.4 (14.0-18.0) g/dl Hct 45.0 (42.0-52.0) % MCV 87.4 (80.0-100.0) fL MCH 29.9 (25.0-34.0) pg MCHC 34.2 (32.0-36.0) g/dL RDW Std Deviation 39.5 (36.4-46.3) fL RDW Coeff of Carlos 12.2 (11.5-14.5) % Plt Count 328 (130-400) K/uL MPV 9.9 (9.4-12.4) fL Immature Gran % (Auto) 0.6 % Neut % (Auto) 86.7 % Lymph % (Auto) 8.5 % Yates % (Auto) 3.6 % Eos % (Auto) 0.3 % Baso % (Auto) 0.3 % Neut # (Auto) 10.33 H (1.40-6.50) K/uL Lymph # (Auto) 1.01 L (1.20-3.40) K/uL Yates # (Auto) 0.43 (0.11-0.59) K/uL Eos # (Auto) 0.04 (0.00-0.50) K/uL Baso # (Auto) 0.03 (0.00-0.20) K/uL Immature Gran # (Auto) 0.07 (0.01-0.20) K/uL PT 10.4 (9.0-12.0) Seconds INR 1.0 (0.9-1.1) APTT 22 (21-31) Seconds PTT Ratio 0.8 Sodium 140 144 (136-145) mmol/L Potassium 3.8 3.6 (3.5-5.1) mmol/L Chloride 99 107 (98-107) mmol/L Carbon Dioxide 25 23 (21-32) mmol/L Anion Gap 16 H 14 H (3-11) BUN 17 17 (6-23) mg/dl Creatinine 0.89 0.83 (0.6-1.4) mg/dl Est Cr Clr Drug Dosing 145.0 155.4 ml/min Est GFR ( Amer) 135.8 139.8 ml/min Est GFR (Non-Af Amer) 117.2 120.6 ml/min BUN/Creatinine Ratio 19.1 20.5 H (10-20) Glucose 270 H 139 H (70-99(Fasting)) mg/dl POC Glucose 222 H (70-99) mg/dl Lactate (0.4-2.0) mmol/L Calcium 10.1 9.1 (8.6-10.3) mg/dl Magnesium 1.5 L (1.7-2.4) mg/dl Total Bilirubin 0.7 (0.2-1.0) mg/dl Direct Bilirubin 0.1 (0-0.2) mg/dl AST 17 (13-39) U/L ALT 15 (7-52) U/L Alkaline Phosphatase 119 H (34-104) U/L Total Protein 8.0 (6.0-8.3) gm/dl Albumin 5.0 (3.4-5.0) gm/dl Lipase 9 L (11-82) U/L 10/29/23 10/29/23 Range/Units 17:05 18:00 WBC (4.8-10.8) K/ul RBC (4.70-6.10) M/uL Hgb (14.0-18.0) g/dl Hct (42.0-52.0) % MCV (80.0-100.0) fL MCH (25.0-34.0) pg MCHC (32.0-36.0) g/dL RDW Std Deviation (36.4-46.3) fL RDW Coeff of Carlos (11.5-14.5) % Plt Count (130-400) K/uL MPV (9.4-12.4) fL Immature Gran % (Auto) % Neut % (Auto) % Lymph % (Auto) % Yates % (Auto) % Eos % (Auto) % Baso % (Auto) % Neut # (Auto) (1.40-6.50) K/uL Lymph # (Auto) (1.20-3.40) K/uL Yates # (Auto) (0.11-0.59) K/uL Eos # (Auto) (0.00-0.50) K/uL Baso # (Auto) (0.00-0.20) K/uL Immature Gran # (Auto) (0.01-0.20) K/uL PT (9.0-12.0) Seconds INR (0.9-1.1) APTT (21-31) Seconds PTT Ratio Sodium (136-145) mmol/L Potassium (3.5-5.1) mmol/L Chloride (98-107) mmol/L Carbon Dioxide (21-32) mmol/L Anion Gap (3-11) BUN (6-23) mg/dl Creatinine (0.6-1.4) mg/dl Est Cr Clr Drug Dosing ml/min Est GFR ( Amer) ml/min Est GFR (Non-Af Amer) ml/min BUN/Creatinine Ratio (10-20) Glucose (70-99(Fasting)) mg/dl POC Glucose 225 H (70-99) mg/dl Lactate 1.3 (0.4-2.0) mmol/L Calcium (8.6-10.3) mg/dl Magnesium (1.7-2.4) mg/dl Total Bilirubin (0.2-1.0) mg/dl Direct Bilirubin (0-0.2) mg/dl AST (13-39) U/L ALT (7-52) U/L Alkaline Phosphatase (34-104) U/L Total Protein (6.0-8.3) gm/dl Albumin (3.4-5.0) gm/dl Lipase (11-82) U/L [facility] Narrative 1059: The patient was evaluated in room B12. A complete history and physical exam was performed Cardiac monitoring: An order was placed for continuous cardiac monitoring. The monitor shows a rate of 90 with sinus rhythm interpreted by me 1235: Vital signs stable. Labs show an anion gap of 16 with a glucose of 270. Will give another liter of fluid and then recheck the patient's metabolic profile. Patient states his nausea is better but he still feels nauseous. 1345: Vital signs stable. Patient started having nausea and vomiting again. Zofran ordered for the patient. Repeat BMP will be sent off after 2 L normal saline infused. 1555: Vital signs stable. Repeat labs show a glucose of 225 anion gap of 14. Patient still having nausea and vomiting. Patient be admitted to [facility] hospitalist team for intractable nausea and vomiting. Impression & Plan Intractable nausea and vomiting Discharge Plan Visit Data Chief Complaint: Flu Like Symptoms Stated Complaint: NAUSEA/VOMITING ED Provider: Catarino Zhao Discharge Problem: Intractable nausea and vomiting Patient Disposition: Admitted As Inpatient Forms Stand Alone Forms: My [facility] Prescriptions Prescriptions: No Action Baqsimi 3 mg/actuation spray,non-aerosol 3 mg INTNAS DIRECTED PRN (Reason: Hypoglycemia) Qty: 2 1RF (DME) Contour Next Test Strips Strip See Rx Instructions .Route Qty: 400 3RF Rx Instructions: Test blood sugar four times daily insulin aspart U-100 100 unit/mL solution 0 unit continuous subcutaneous infusion CONTINOUS MDD 60 UNITS/DAILY Referrals Referrals: Oneil Tinajero MD [Primary Care Provider] -
[2023-10-29] MEDS: diphenhydrAMINE 50 MG/ML VIAL IV STA (11:39)
[2023-10-29] MEDS: METOCLOPRAMIDE HCL INJ 5 MG/ML 2 ML VIAL IV ONE (11:39)
[2023-10-29] MEDS: SODIUM CHLORIDE 0.9% 1,000 ML IV ONE ×2 (11:39→12:40)
[2023-10-29 12:06] LABS: Basophils # (auto) 0.03 K/uL (0.00-0.20); Basophils % (auto) 0.3 %; Eosinophils # (auto) 0.04 K/uL (0.00-0.50); Eosinophils % (auto) 0.3 %; Hemoglobin 15.4 g/dl (14.0-18.0); Immature Granulocytes # (auto) 0.07 K/uL (0.01-0.20); Immature Granulocytes % (auto) 0.6 %; Lymphocytes # (auto) 1.01 K/uL (1.20-3.40); Lymphocytes % (auto) 8.5 %; Mean Corpuscular Hemoglobin 29.9 pg (25.0-34.0); Mean Corpuscular Hgb Conc 34.2 g/dL (32.0-36.0); Mean Corpuscular Volume 87.4 fL (80.0-100.0); Mean Platelet Volume 9.9 fL (9.4-12.4); Monocytes # (auto) 0.43 K/uL (0.11-0.59); Monocytes % (auto) 3.6 %; Neutrophils # (auto) 10.33 K/uL (1.40-6.50); Neutrophils % (auto) 86.7 %; Platelet Count 328 K/uL (130-400); RDW Coefficient of Variation 12.2 % (11.5-14.5); RDW Standard Deviation 39.5 fL (36.4-46.3); Red Blood Count 5.15 M/uL (4.70-6.10); White Blood Count 11.91 K/ul (4.8-10.8)
[2023-10-29 12:16] LABS: Partial Thromboplastin Ratio 0.8; Partial Thromboplastin Time 22 Seconds (21-31); Prothrombin Time 10.4 Seconds (9.0-12.0)
[2023-10-29 12:30] LABS: BUN Creatinine Ratio 19.1 (10-20); Bilirubin Direct 0.1 mg/dl (0-0.2); Bilirubin,Total 0.7 mg/dl (0.2-1.0); Est GFR (African American) 135.8 ml/min; Est GFR (Non-African American) 117.2 ml/min; Potassium 3.8 mmol/L (3.5-5.1)
[2023-10-29 13:16] LABS: Calcium 10.1 mg/dl (8.6-10.3)
[2023-10-29] MEDS: ONDANSETRON INJ 2 MG/ML 2 ML VIAL IV STA (13:51)
[2023-10-29 14:31] LABS: BUN Creatinine Ratio 20.5 (10-20); Calcium 9.1 mg/dl (8.6-10.3); Creatinine Clr Calc Pharmacy 155.4 ml/min; Est GFR (African American) 139.8 ml/min; Est GFR (Non-African American) 120.6 ml/min; Potassium 3.6 mmol/L (3.5-5.1)
--- NOTE | 2023-10-29 16:10 | History & Physical Report ---
Date of Service October 29, 2023 Assessment & Plan (1) Nausea & vomiting: Plan: -Admit to med/tele -Currently stable and non-toxic appearing -Presented to the ED with recurrent nausea/vomiting which began around 0100 this am -Patient has frequent admissions to our service as he normally presents in DKA -He has a hx of cannabis hyperemesis syndrome, diabetic gastroparesis, and cocaine abuse -Still appears dehydrated on exam -Initial AG of 16 --> 14 after 2L NSS in the ED -Glucose is currently in the 130's, bicarb as been stable since arrival -Will start maintenance LR until PO intake improves -Patient reports Phenergan usually works better, will continue prn for now -Will obtain Ches/abd xrays for further evaluation -Will add on lactate level on admission -Potassium at 3.6, will give 3 bags 10 meq IV KCL now -Will obtain mag level -Will obtain evening BMP/mag to ensure he's continuing to improve -Clear liquid diet for now -OOB for DVT PPX -AM CBC, CMP, mag (2) Diabetes type 1, uncontrolled: Plan: -Patient reports taking 45 units lants qHS for basal insulin with sliding scale -Reports he did take his evening lantus last night -Will start 20 units lantus BID -Start CF 50 and CR of 15 q6h for now -Adjust regimen as needed (3) Cannabinoid hyperemesis syndrome: Plan: -Last use was approximately 3 days ago -Continue to stress cessation -Follow urine tox screen (4) Cocaine abuse: Plan: -Follow urine tox screen -Continue to stress cessation (5) GERD (gastroesophageal reflux disease): Plan The patient was discussed with Dr. Miranda at the time of the admission History of Present Illness Chief Complaint: Nausea and vomiting Primary Care Provider: Oneil Tinajero MD Luis is a 28 year old male with a PMH significant for DMI with recurrent episodes of nausea/vomiting due to gastroparesis, recurrent admissions for DKA, marijuana abuse, and cocaine use who presented to the [facility] ED on 10/29/23 with complaints of nausea and vomiting. He was noted to be tachycardic with HR in the low 110's but was otherwise stable. Labs were significant for a leukocytosis of 11 with neutrophil predominance of 10, initial AG of 16 -->14 on repeat, stable bicarb, glucose of 270 -->139, and lipase WNL. No imaging was obtained in the ED. The patient was given 2L NSS, 25 mg IV diphenhydramine, 5 mg IV Reglan, and 4 mg IV zofran without improvement in his symptoms. We were asked to admit the patient due to ongoing nausea/vomiting and hx of frequent admissions for DKA with his chronic nausea/vomiting. At the time of the exam the patient was sitting in bed in no acute distress. He states that he started to develop nausea and vomiting this am around 0100. When asked about recent marijuana and cocaine use, he states that he has been working to try and wean his marijuana use down to 2-3 times a week, in the evenings. His last use was approximately 3 days ago. He denies recent cocaine use or other recreational drug use. He has had some abdominal cramping in the lower abdomen, but this started after he had multiple episodes of nausea and vomiting. Denies recent fever, chills, chest pain, hemoptysis, hematemesis, coffee ground emesis, dysruia, hematuria, melena, diarrhea, or recent trauma. His symptoms have improved since arrival but have not yet resolved. Please refer to Dr. Miranda's attestation for any changes to the treatment plan Allergies Allergy/AdvReac Type Severity Reaction Status Date / Time Cephalosporins Allergy Intermediate Hives Verified 09/14/23 11:15 Sulfa (Sulfonamide Allergy Intermediate Hives Verified 09/14/23 11:15 Antibiotics) azithromycin [From Zithromax] AdvReac Intermediate Hives Verified 09/14/23 11:15 Home Medications Medication Instructions Recorded Confirmed Type blood sugar diagnostic (Contour #400 ea 08/06/21 11/10/22 Rx Next Test Strips) glucagon 3 mg/actuation nasal 3 mg intranasal DIRECTED PRN 11/02/21 10/29/23 Rx spray (Baqsimi) Hypoglycemia #2 ea insulin aspart U-100 100 unit/mL 0 unit continuous subcutaneous 07/31/23 10/29/23 History subcutaneous solution infusion CONTINOUS pantoprazole 40 mg tablet,delayed 40 mg PO PRN GERD 10/29/23 History release Past Med/Surg History Medical History Nausea & vomiting Intractable vomiting with nausea Choledocholithiasis Cholelithiasis Diabetes type 1, uncontrolled Hypokalemia Hypomagnesemia Intractable cyclical vomiting with nausea Hematemesis Methadone dependence Cyclic vomiting syndrome Gastroparesis Marijuana use Intractable vomiting with nausea History of opioid abuse Type I diabetes mellitus Soft tissue abscess Anemia Pneumomediastinum Hepatitis Surgical History Hx laparoscopic cholecystectomy (07/27/22) Laparoscopic Cholecystectomy, Repair of Incidental Enterotomy - Carlos Vigil, DO Family History Father Valvular heart disease Mother Hypothyroidism Other Cancer Diabetes Heart disease Hypertension Social History Smoking Status: Current every day smoker Tobacco Type: Cigarettes Cigarettes Per Day: 3; Second Hand Exposure: No; Do You Dip or Chew Tobacco: No; Tobacco Cessation Education Requested by Patient: No Hx Alcohol Use: No Hx Substance Use: Yes Prescribed Medications: Opiates Non-Prescribed Medic ations: Marijuana Last Used Substance: Days (ago) Last Used Substance Other:: Medical Marijuana Substance Use Type Other:: 1 week ago Preferred Language: Maltese Communication Ability: Effective 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 Beliefs That Will Affect Care: None marital status: Single Current Living Situation: Parent current occupational status: unemployed How many Children do You have: 0 Other Information That Helps Us Care for You: No Feels Safe at Home: Yes Safety Concerns: Feels Safe At This Time Diet: diabetic during the past year weight has: decreased > 10 lbs Assistive Devices: None Physical Exam Physical Exam: Physical Exam: General: In no acute distress, stated age, poor hygiene, ill but non-toxic appearing HEENT: Normocephalic, atraumatic, no scleral icterus, pupils around round, symmetrical, and reactive to light, Dry mucus membranes, trachea midline, no thyromegaly Chest/Pulm: No respiratory distress, symmetrical chest expansion, clear breath sounds throughout Cardiac: RRR, no murmurs noted Abdomen: Negative for ascites and bruising, normoactive bowel sounds, soft, non-tender to palpation throughout Musculoskeletal: Symmetrical and without signs of acute trauma, upper and lower extremities with full ROM, no atrophy, spasticity, or flaccidity Extremities: Radial, dorsalis pedis, and posterior tibial pulses are intact and symmetrical, no edema noted in the BL LE's Skin: Warm, dry, no rashes , lesions, or scars noted Neuro: Alert and oriented to person, place, month, year, and president, no focal defects, no tremors noted Psych: No acute distress, calm and cooperative during the exam Results & Data Results & Data Vital Signs (Past 12 Hours) Vital Signs Temp Pulse Pulse Resp BP BP Pulse Ox 10/29/23 15:46 110 H 14 111/61 99 10/29/23 13:50 84 18 161/89 H 100 10/29/23 12:39 90 14 140/93 99 10/29/23 11:59 99 H 10/29/23 11:35 112 H 20 100 10/29/23 11:35 112 H 20 134/95 100 10/29/23 10:48 36.3 C L 86 16 143/93 H 99 O2 Del Method 10/29/23 15:46 Room Air 10/29/23 13:50 10/29/23 12:39 Room Air 10/29/23 11:59 10/29/23 11:35 Room Air 10/29/23 11:35 Room Air 10/29/23 10:48 Room Air Laboratory Results Abnormal lab results 10/29/23 10/29/23 10/29/23 Range/Units 11:17 11:35 14:05 WBC 11.91 H (4.8-10.8) K/ul Neut # (Auto) 10.33 H (1.40-6.50) K/uL Lymph # (Auto) 1.01 L (1.20-3.40) K/uL Anion Gap 16 H 14 H (3-11) BUN/Creatinine Ratio 20.5 H (10-20) Glucose 270 H 139 H (70-99(Fasting)) mg/dl POC Glucose 222 H (70-99) mg/dl Alkaline Phosphatase 119 H (34-104) U/L Lipase 9 L (11-82) U/L Code Status & VTE Plan Code Status Full code VTE Prophylaxis Plan VTE Prophylaxis will be ordered: Yes Supervising Physician Co-Signing Physician Notes I personally saw and examined the patient. I verified all gonzales points and agree with Diego Domínguez PA-C with the following exceptions and/or additions: 28 year old male with T1DM presents to the ER with intractable nausea and vomiting. Took his Lantus last night O/E Ill appearing, HS RRR, no murmurs, Chest CTAB, Abdo SNT A/P Nausea and vomiting - ?cannabis hyperemesis, Continue promethazine PRN, clear liquid diet, advance as tolerated GERD - IV pantoprazole and famotidine now, continue pantoprazole 40mg PO daily tomorrow T1DM - Not in DKA, Switch to 20 units Lantus BID, Novolog SS, consult pharmacy for ongoing glycemic control Fever - blood cultures, procalcitonin, biofire PCR, defer antibiotics unless recurrent feer given lack of source on history/imaging/labs PG Care Time/CCT Total # of Minutes Spent Total Time Spent with Patient: Total time spent is greater than 50% in coordination of care (as documented) at patient's floor/unit and/or counseling patient: [place] [address] INT INP/OBS CARE 2/55MIN Patient Type Established Medical Decision Making Moderate Complexity Diagnoses Nausea & vomiting R11.2 Diabetes type 1, uncontrolled E10.65 Cannabinoid hyperemesis syndrome R11.2; F12.90 Cocaine abuse F14.10 GERD (gastroesophageal reflux disease) K21.9
[2023-10-29] MEDS ORDERED: GLUCOSE 40% GEL 15 GM TUBE PO PRN (16:23)
[2023-10-29] MEDS ORDERED: GLUCAGON FOR INJ 1 MG VIAL SQ PRN (16:23)
[2023-10-29] MEDS ORDERED: DEXTROSE 50% 50 ML SYRINGE IV PRN (16:23)
[2023-10-29] MEDS ORDERED: GLUCOSE 10 TAB/TUBE PO PRN (16:23)
[2023-10-29] MEDS: LACTATED RINGER'S 1,000 ML IV SCH (16:25)
[2023-10-29] MEDS ORDERED: ACETAMINOPHEN 325 MG TAB PO PRN (16:26)
[2023-10-29 16:56] LABS: Magnesium 1.5 mg/dl (1.7-2.4)
[2023-10-29] MEDS: POTASSIUM CHLORIDE / WTR 10 MEQ/100 ML PLCT IV SCH (17:35)
--- NOTE | 2023-10-29 17:56 | XRay Report ---
PA CHEST WITH ABDOMINAL SERIES CLINICAL HISTORY: Nausea and vomiting. FINDINGS: A PA chest radiograph is compared to study dated 09/14/2023. The cardiomediastinal silhouette is unrem arkable. The lungs and pleural spaces are clear. No pneumothorax is seen. The bony thorax is grossly intact. Supine and erect abdominal radiographs are compared to study dated 09/14/2023. Correlation is made wit abdominal CT dated 05/24/2023. Cholecystectomy clips are noted in the right upper quadrant. There i s a nonobstructed abdominal bowel gas pattern. No evidence of intraperitoneal free air is seen. The h epatic silhouette appears enlarged. There are no abnormal abdominal calcifications. A phlebolith in t he left hemipelvis is unchanged. The lumbosacral spine and bony pelvis appear intact. IMPRESSION: 1. No active disease in the chest. 2. Nonobstructed abdominal bowel gas pattern. ACT 112: Negative or not required by law. Electronically signed by: Scott Gordon M.D. 10/29/2023 5:54 PM
[2023-10-29] MEDS: INSULIN ASPART PER UNIT CHARGE SC SCH (18:22)
[2023-10-29] MEDS: PROMETHAZINE HCL 6.25 MG in SODIUM CHLORIDE 0.9% 50 ML IV PRN (18:30)
[2023-10-29 19:58] LABS: BUN Creatinine Ratio 18.8 (10-20); Calcium 8.8 mg/dl (8.6-10.3); Creatinine Clr Calc Pharmacy 151.8 ml/min; Est GFR (African American) 138.4 ml/min; Est GFR (Non-African American) 119.4 ml/min; Magnesium 1.6 mg/dl (1.7-2.4); Potassium 3.6 mmol/L (3.5-5.1)
[2023-10-29] MEDS: LANTUS PER UNIT CHARGE SQ SCH (20:59)
[2023-10-29] MEDS: MAGNESIUM SULFATE / D5W 1 GM/100 ML BAG IV SCH (20:59)
[2023-10-29] MEDS: PANTOprazole 40 MG in SYRINGE 0 ML IV ONE (21:43)
[2023-10-29 22:01] LABS: Appearance Urine Clear (Clear); Bacteria Urine Automated None Seen (None Seen); Bilirubin Urine Negative (Negative); Blood Urine Negative (Negative); Cast Urine Automated 0-2 /lpf (0-2); Color Urine Yellow; Epithelial Cell Urine Auto 0-2 /hpf (0-2); Glucose Urine UA 3+ (Negative); Ketones Urine 4+ (Negative); Leukocyte Esterase Urine Negative (Negative); Nitrite Urine Negative (Negative); Protein Urine 2+ (Negative); RBC Urine Automated 0-2 /hpf (0-2); Specific Gravity Urine 1.038 (1.000-1.030); Urobilinogen Urine Negative (Negative); WBC Urine Automated 0-5 /hpf (0-5); pH Urine 7.5 (4.5-7.5)
[2023-10-29 22:27] LABS: Amphetamines+Metham, Urine Pos (Neg); Barbiturates, Urine Neg (Neg); Benzodiazepine, Urine Neg (Neg); Cocaine, Urine Neg (Neg); MDMA (Ecstacy), Urine Neg (Neg); Marijuana, Urine Pos (Neg); Methadone, Urine Neg (Neg); Opiate, Urine Neg (Neg); Phencyclidine, Urine Neg (Neg)
[2023-10-29] MEDS: FAMOTIDINE 20MG IV PUSH 20 MG/5 ML SYR IV ONE (22:31)
[2023-10-29] MEDS ORDERED: PHARMACY GLYCEMIC MGMT CONSULT PRN (22:58)
[2023-10-29 23:20] LABS: Phosphorus 2.3 mg/dl (2.5-4.9)
[2023-10-30 00:26] LABS: Adenovirus PCR Not Detected (NotDetected); Bordetella parapertussis PCR Not Detected (NotDetected); Bordetella pertussis PCR Not Detected (NotDetected); Chlamydia pneumoniae PCR Not Detected (NotDetected); Coronavirus 229E PCR Not Detected (NotDetected); Coronavirus CoV-2 (COVID19)PCR Not Detected (NotDetected); Coronavirus HKU1 PCR Not Detected (NotDetected); Coronavirus NL63 PCR Not Detected (NotDetected); Coronavirus OC43PCR Not Detected (NotDetected); Human Metapneumovirus PCR Not Detected (NotDetected); Influenza A PCR Not Detected (NotDetected); Influenza B PCR Not Detected (NotDetected); Mycoplasma pneumoniae PCR Not Detected (NotDetected); Parainfluenza Virus 1 PCR Not Detected (NotDetected); Parainfluenza Virus 2 PCR Not Detected (NotDetected); Parainfluenza Virus 3 PCR Not Detected (NotDetected); Parainfluenza Virus 4 PCR Not Detected (NotDetected); Respiratory Syncytial VirusPCR Not Detected (NotDetected); Rhinovirus/Enterovirus PCR Not Detected (NotDetected)
[2023-10-30] MEDS: INSULIN ASPART PER UNIT CHARGE SC ONE (00:35)
[2023-10-30 06:14] LABS: Basophils # (auto) 0.04 K/uL (0.00-0.20); Basophils % (auto) 0.3 %; Eosinophils # (auto) 0.04 K/uL (0.00-0.50); Eosinophils % (auto) 0.3 %; Hematocrit (blood only) 36.4 % (42.0-52.0); Immature Granulocytes # (auto) 0.04 K/uL (0.01-0.20); Immature Granulocytes % (auto) 0.3 %; Lymphocytes # (auto) 2.72 K/uL (1.20-3.40); Lymphocytes % (auto) 22.5 %; Mean Corpuscular Hemoglobin 29.8 pg (25.0-34.0); Mean Corpuscular Volume 90.3 fL (80.0-100.0); Mean Platelet Volume 9.9 fL (9.4-12.4); Monocytes % (auto) 9.1 %; Neutrophils # (auto) 8.15 K/uL (1.40-6.50); Neutrophils % (auto) 67.5 %; Platelet Count 280 K/uL (130-400); RDW Coefficient of Variation 12.7 % (11.5-14.5); Red Blood Count 4.03 M/uL (4.70-6.10); White Blood Count 12.09 K/ul (4.8-10.8)
--- NOTE | 2023-10-30 06:34 | Hospitalist Progress Note ---
Date of Service October 30, 2023 Assessment & Plan (1) Nausea & vomiting: (2) Diabetes type 1, uncontrolled: (3) Cannabinoid hyperemesis syndrome: (4) Cocaine abuse: Admission and Anticipated Discharge Date Admission Date: October 29, 2023 Results & Data Results & Data Vital Signs (Past 12 Hours) Vital Signs Temp Pulse Pulse Resp BP BP Pulse Ox 10/30/23 02:52 36.8 C 106 H 16 125/74 97 10/29/23 22:20 38.8 C H 108 H 20 141/80 H 99 10/29/23 22:19 105 H 10/29/23 22:13 36.8 C 108 H 20 141/80 H 99 10/29/23 22:13 10/29/23 21:50 120 H 18 151/87 H 98 10/29/23 20:00 75 18 159/106 H 92 Pulse Ox O2 Del Method O2 Del Method O2 Flow Rate 10/30/23 02:52 Room Air 10/29/23 22:20 Room Air 10/29/23 22:19 10/29/23 22:13 Room Air 10/29/23 22:13 99 Room Air 10/29/23 21:50 Room Air 10/29/23 20:00 Nasal Cannula 2
[2023-10-30 06:37] LABS: Albumin Globulin Ratio 1.6 (0.9-2); Albumin Level 3.9 gm/dl (3.4-5.0); Bilirubin,Total 0.6 mg/dl (0.2-1.0); Calcium 8.6 mg/dl (8.6-10.3); Creatinine Clr Calc Pharmacy 168.9 ml/min; Est GFR (African American) 145.7 ml/min; Est GFR (Non-African American) 125.7 ml/min; Globulin 2.4 gm/dl (2.5-4.0); Potassium 3.8 mmol/L (3.5-5.1); Total Protein 6.3 gm/dl (6.0-8.3)
[2023-10-30] MEDS: PANTOprazole 40 MG TAB PO SCH (07:53)
--- NOTE | 2023-10-30 14:24 | Discharge Summary ---
Date of Service October 30, 2023 Admission HPI Per Admitting Provider Luis is a 28 year old male with a PMH significant for DMI with recurrent episodes of nausea/vomiting due to gastroparesis, recurrent admissions for DKA, marijuana abuse, and cocaine use who presented to the [facility] ED on 10/29/23 with complaints of nausea and vomiting. He was noted to be tachycardic with HR in the low 110's but was otherwise stable. Labs were significant for a leukocytosis of 11 with neutrophil predominance of 10, initial AG of 16 -->14 on repeat, stable bicarb, glucose of 270 -->139, and lipase WNL. No imaging was obtained in the ED. The patient was given 2L NSS, 25 mg IV diphenhydramine, 5 mg IV Reglan, and 4 mg IV zofran without improvement in his symptoms. We were asked to admit the patient due to ongoing nausea/vomiting and hx of frequent admissions for DKA with his chronic nausea/vomiting. At the time of the exam the patient was sitting in bed in no acute distress. He states that he started to develop nausea and vomiting this am around 0100. When asked about recent marijuana and cocaine use, he states that he has been working to try and wean his marijuana use down to 2-3 times a week, in the evenings. His last use was approximately 3 days ago. He denies recent cocaine use or other recreational drug use. He has had some abdominal cramping in the lower abdomen, but this started after he had multiple episodes of nausea and vomiting. Denies recent fever, chills, chest pain, hemoptysis, hematemesis, coffee ground emesis, dysruia, hematuria, melena, diarrhea, or recent trauma. His symptoms have improved since arrival but have not yet resolved. Please refer to Dr. Miranda's attestation for any changes to the treatment plan Admission Exam Per Admitting Provider General: In no acute distress, stated age, poor hygiene, ill but non-toxic appearing HEENT: Normocephalic, atraumatic, no scleral icterus, pupils around round, symmetrical, and reactive to light, Dry mucus membranes, trachea midline, no thyromegaly Chest/Pulm: No respiratory distress, symmetrical chest expansion, clear breath sounds throughout Cardiac: RRR, no murmurs noted Abdomen: Negative for ascites and bruising, normoactive bowel sounds, soft, non- tender to palpation throughout Musculoskeletal: Symmetrical and without signs of acute trauma, upper and lower extremities with full ROM, no atrophy, spasticity, or flaccidity Extremities: Radial, dorsalis pedis, and posterior tibial pulses are intact and symmetrical, no edema noted in the BL LE's Skin: Warm, dry, no rashes , lesions, or scars noted Neuro: Alert and oriented to person, place, month, year, and president, no focal defects, no tremors noted Psych: No acute distress, calm and cooperative during the exam Principal Diagnosis Nausea and vomiting. Discharge Exam Constitutional WD/WN, vitals as above Respiratory normal respiratory effort, lungs clear to auscultation Cardiovascular RRR, no murmur, no edema Gastrointestinal (Abdomen) normal bowel sounds, soft, nontender, no hepatosplenomegaly Psychiatric A+Ox3, euthymic affect Discharge Data Allergies Allergy/AdvReac Type Severity Reaction Status Date / Time Cephalosporins Allergy Intermediate Hives Verified 09/14/23 11:15 Sulfa (Sulfonamide Allergy Intermediate Hives Verified 09/14/23 11:15 Antibiotics) azithromycin [From Zithromax] AdvReac Intermediate Hives Verified 09/14/23 11:15 Consultations 10/29/23 15:56 ED Decision to Admit Stat Hospital Course (1) Nausea & vomiting: -N/V x1 day -Chest and abd XR without abnormality -Initially AG of 16 likely from vomiting. No concern of DKA. -No further fever since admit. -Improved over the course of stay, able to tolerate full liquid diet prior to discharge -Likely gastroparesis or cannabis hyperemesis - patient trying to wean off cannabis. -Patient felt okay to go home at time of discharge - has PRN anti-emetics at home prescribed by PCP office if needed. -F/u with PCP office. (2) Diabetes type 1, uncontrolled: (3) Cannabinoid hyperemesis syndrome: Total Time Total Time Spent Total Time Spent (In Minutes): Please see attending attestation. Discharge Plan Discharge Items Patient Disposition: Home - Self-Care Reason For Visit: UNCONTROLLED NAUSEA AND VOMITING Discharge Diagnosis: Nausea and vomiting Activity: Per Instructions section Non-emergency contact: Primary Care Provider Call non-emergency contact if: your symptoms worsen, your pain is worsening and your temperature is above 101 Follow-up/Referrals: Oneil Tinajero MD [Primary Care Provider] - (PLEASE CALL YOUR PRIMARY CARE PROVIDER TO SCHEDULE A HOSPITAL DISCHARGE FOLLOW-UP APPOINTMENT WITHIN 7-10 DAYS) Diet: Regular Addtl Attending Provider Instructions: You came to the emergency room for nausea and vomiting. After receiving IV fluids and IV medications for nausea you had good improvement to your symptoms. Since you were able to tolerate eating and drinking without vomiting we feel at this time it is fine for you to go home to continue recovering. If you have resurgence of your symptoms where you are unable to control your vomiting or unable to keep food and water down despite anti-nausea medications please return to the ER. Please follow up with your PCP. Pending Studies at Discharge: No Stand-Alone Forms: [facility] Integrated Plasmon[employer], Smoking Cessation Medications and DC Order Prescriptions: Continued Baqsimi 3 mg/actuation spray,non-aerosol 3 mg INTNAS DIRECTED PRN (Reason: Hypoglycemia) Qty: 2 1RF (DME) Contour Next Test Strips Strip See Rx Instructions .Route Qty: 400 3RF Rx Instructions: Test blood sugar four times daily insulin aspart U-100 100 unit/mL solution 0 unit continuous subcutaneous infusion CONTINOUS MDD 60 UNITS/DAILY pantoprazole 40 mg tablet,delayed release (DR/EC) 40 mg PO PRN (Reason: GERD) Discharge Orders: Discharge Order (Routine); Ordered 10/30/23 Ordered By: Micheal Meek Admission Data Admit Date/Time: 10/29/23 16:13 Attending Provider: Callie Vásquez Admit Provider: Jon Miranda Primary Care Provider: Oneil Tinajero Other Providers: Jon Miranda Supervising Physician Co-Signing Physician Notes Attending Physician Supervision Note: I independently interviewed and examined the patient and verified the gonzales history and physical, reviewed labs and image studies and agree with findings and care plan noted above. Resident Activity Tracking Resident Involvement: Resident Care Provided Care Provided: Adult Hospital Medicine
[2023-10-30] MEDS: CARBOHYDRATES FOR HYPOGLYCEMIA PO PRN (15:45)
[2023-10-30] MEDS ORDERED: LANTUS PER UNIT CHARGE SQ SCH (21:00)
[2023-11-02 16:26] LABS: Amphetamine Urine, Confirm 459 ng/mL (<250); Marijuana Quant, GCMS Urine 1312 ng/mL (<5); Methamphetamine, Ur Confirm 4276 ng/mL (<250)
== END 2023-10-30 17:16 | disposition home or self-care (01) | DRG 392 ==
LOC: ED 10:43 → INTOOBSV 16:13 → 2N 16:13 → SUATTDRO 16:13 → 2N 21:50

== ENCOUNTER 2023-11-12 12:08 | Inpatient (IN) ==
--- NOTE | 2023-11-12 12:30 | Emergency Department Note ---
Impression & Plan Acute dehydration, Acute hypokalemia, Intractable nausea and vomiting, Abdominal pain, Elevated lactic acid level ED Provider Note HISTORY OF PRESENT ILLNESS: Patient is a 28-year-old male presenting with right upper quadrant abdominal pain and vomiting. Patient reports that he had an episode of nausea and vomiting 3 days ago. He started having what he thought was a muscle spasm in his right upper quadrant epigastric region. However, the pain has persisted. He has had a few more episodes of vomiting and multiple episodes of diarrhea. Denies any recent travel. Denies any recent sick contact exposures. Denies any blood in his diarrhea. Denies any recent antibiotic use. He denies any fevers. Reports abdominal surgical history of a cholecystectomy. He states that he took Tylenol earlier today for the pain with little relief in his symptoms. He locates the pain to the right upper quadrant and epigastric region with radiation into his back. ROS: as above PHYSICAL EXAM: Constitutional: Patient appears in no acute distress. HENT: Head: Normocephalic and atraumatic. Eyes: EOMI, PERRL Mouth/Throat: Mucous membranes dry. Neck: Trachea midline. Neck supple. Cardiovascular: Tachycardic with regular rhythm. No murmurs, rubs or gallops. Intact distal pulses. Pulmonary/Chest: No respiratory distress. Breath sounds clear and equal bilaterally. No wheezes or rales. Abdominal: Abdomen soft, no rebound or guarding. Epigastric TTP Musculoskeletal: No edema, tenderness or deformity noted. Skin: Warm and dry. No rash, erythema, pallor or cyanosis Psychiatric: Appropriate mood and affect for situation. Neurological: Alert and keenly responsive. CN II-XII grossly intact, moving all extremities equally and fully. MDM: - Vitals signs showed tachycardia. - History obtained via patient. History as above. - Chronic conditions affecting care: DM-1; hepatitis C; intractable vomiting - Differential diagnoses include, but are not limited to: pancreatitis; ACS; choledocholithiasis; viral syndrome; dehydration - Order placed for continuous cardiac monitoring. At this time, monitor showed rate of 122 bpm with normal sinus rhythm, per my interpretation. - External medical records reviewed. Discharge summary dated 10/30/2023 was reviewed. Patient was admitted at that time for his intractable nausea and vomiting. - Laboratory workup interpreted by myself showed leukocytosis (WBC 15.14) with left shift; elevated lactate (2.2); hypokalemia (K 2.8); elevated anion gap (15 - likely from diarrhea and vomiting); hypoglycemia (glucose 47); normal lipase; normal procalcitonin - Patient given 50 mL dextrose for hypoglycemia - Given 30 mEq IV potassium for electrolyte replacement - Given 2L NS in ER. Started on IV NS at 150 cc/hr - VBG grossly normal - Viral respiratory panel negative - Patient initially given 10 mg IV compazine and 50 mg IV benadryl for nausea and vomiting. Started complaining of diffuse body pain and given 30 mg IV toradol. - CXR negative for pneumonia, per my interpretation - Repeat lactate still elevated at 2.1 - Patient attempted to go over for CT scan, but was complaining of "diffuse muscle spasms" and wouldn't lay flat. Given 5 mg IV haldol with little improvement in symptoms. Given 50 mcg IV fentanyl and taken for CT scan. - CT abdomen/pelvis with IV contrast negative for acute pathology. - A third lactate obtained later showed elevating lactate to 5.3 - Discussion was had with case management social worker about patient's case and need for admission - Hospitalist consulted for admission - [facility] ASSESSMENT AND PLAN: Diagnosis: acute dehydration; intractable nausea and vomiting; abdominal pain; elevated lactic acid level; acute hypokalemia Plan: admit Past Med/Surg History Problem List (Updated 11/12/23 @ 18:06 by Marguerite Méndez MD) Elevated lactic acid level (Acute) Abdominal pain (Acute) Intractable nausea and vomiting (Acute) Acute hypokalemia (Acute) Acute dehydration (Acute) GERD (gastroesophageal reflux disease) Intractable nausea and vomiting (Acute) Cocaine abuse High anion gap metabolic acidosis Nausea & vomiting Back spasm Vitamin D deficiency Cannabinoid hyperemesis syndrome (Acute) Acute dehydration (Acute) Vomiting (Acute) Diffuse abdominal pain (Acute) Acute hyperglycemia (Acute) Hx laparoscopic cholecystectomy (07/27/22) Laparoscopic Cholecystectomy, Repair of Incidental Enterotomy - Carlos Vigil DO HCV (hepatitis C virus) Hyperbilirubinemia Transaminitis Cannabinoid hyperemesis syndrome Diabetes type 1, uncontrolled (Acute) Infected dental caries Cystic lesion of maxilla determined by X-ray Dental fistula Esophagitis Back pain Abnormal CT of the abdomen (Acute) Acute hypokalemia (Acute) Elevated glucose (Acute) Hypokalemia (Acute) Gastroparesis (Acute) Acute dehydration (Acute) Vomiting (Acute) Acute dehydration (Acute) DKA (diabetic ketoacidoses) (Acute) DVT prophylaxis History of opioid abuse (Acute) Diabetes mellitus type 1 with complications (Acute) Medical History Nausea & vomiting Intractable vomiting with nausea Choledocholithiasis Cholelithiasis Diabetes type 1, uncontrolled Hypokalemia Hypomagnesemia Intractable cyclical vomiting with nausea Hematemesis Methadone dependence Cyclic vomiting syndrome Gastroparesis Marijuana use Intractable vomiting with nausea History of opioid abuse Type I diabetes mellitus Soft tissue abscess Anemia Pneumomediastinum Hepatitis Surgical History Hx laparoscopic cholecystectomy (07/27/22) Laparoscopic Cholecystectomy, Repair of Incidental Enterotomy - Carlos Vigil DO Family History Father Valvular heart disease Mother Hypothyroidism Other Cancer Diabetes Heart disease Hypertension Social History Smoking Status: Never smoker Tobacco Type: Cigarettes Cigarettes Per Day: 3; Second Hand Exposure: No; Do You Dip or Chew Tobacco: No; Hx Alcohol Use: No Hx Substance Use: Yes Prescribed Medications: Opiates Non-Prescribed Medications: Marijuana Last Used Substance: Days (ago) Last Used Substance Other:: Medical Marijuana Substance Use Type Other:: 1 week ago Preferred Language: Croatian Communication Ability: Effective Pharmacy Informaticist Required: No Beliefs That Will Affect Care: None marital status: Single Current Living Situation: Parent current occupational status: unemployed How many Children do You have: 0 Feels Safe at Home: Yes Diet: diabetic during the past year weight has: decreased > 10 lbs Assistive Devices: None Allergies Allergies Allergy/AdvReac Type Severity Reaction Status Date / Time Cephalosporins Allergy Intermediate Hives Verified 11/12/23 13:06 Sulfa (Sulfonamide Allergy Intermediate Hives Verified 11/12/23 13:06 Antibiotics) azithromycin [From Zithromax] AdvReac Intermediate Hives Verified 11/12/23 13:06 Home Meds Home Medications Medication Instructions Recorded Confirmed insulin aspart U-100 100 unit/mL 0 unit continuous subcutaneous 07/31/23 11/12/23 subcutaneous solution infusion CONTINOUS pantoprazole 40 mg tablet,delayed 40 mg PO DAILY PRN GERD 10/29/23 11/12/23 release Previous Rx's Medication Instructions Recorded blood sugar diagnostic (Contour #400 ea 08/06/21 Next Test Strips) glucagon 3 mg/actuation nasal 3 mg intranasal DIRECTED PRN 11/02/21 spray (Baqsimi) Hypoglycemia #2 ea Results & Data (ED) Vital Signs Vital Signs - 24 hr 11/12/23 12:17 11/12/23 12:28 11/12/23 12:30 Temperature 37.0 C Temperature Source Oral Pulse Rate 141 H 125 H 137 H Pulse Rate [Apical] Pulse Rate from SpO2 Sensor 127 H 136 H Pulse Rhythm Regular Pulse Rhythm [Apical] Pulse Strength Normal Pulse Strength [Apical] Respiratory Rate 20 10 L 9 L Respiratory Effort / Characteristics Non-Labored Respiratory Depth Normal Respiratory Pattern Regular Blood Pressure 112/79 Blood Pressure [Right Arm] Blood Pressure Mean 90 Blood Pressure Mean [Right Arm] Blood Pressure Position Lying Pulse Oximetry 97 98 98 Oxygen Delivery Method Room Air Sepsis Recent Fever Within 48 Hours No Sepsis New/Unexplained Change in Mental Status N/A Sepsis Action Taken by Nursing No Action Required 11/12/23 12:30 11/12/23 12:34 11/12/23 12:40 Temperature Temperature Source Pulse Rate 132 H 127 H Pulse Rate [Apical] Pulse Rate from SpO2 Sensor 128 H Pulse Rhythm Pulse Rhythm [Apical] Pulse Strength Pulse Strength [Apical] Respiratory Rate 11 L Respiratory Effort / Characteristics Respiratory Depth Respiratory Pattern Blood Pressure 138/109 H Blood Pressure [Right Arm] Blood Pressure Mean 127 Blood Pressure Mean [Right Arm] Blood Pressure Position Pulse Oximetry 98 Oxygen Delivery Method Sepsis Recent Fever Within 48 Hours Sepsis New/Unexplained Change in Mental Status Sepsis Action Taken by Nursing 11/12/23 12:45 11/12/23 12:45 11/12/23 12:50 Temperature Temperature Source Pulse Rate 121 H 110 H Pulse Rate [Apical] Pulse Rate from SpO2 Sensor 122 H 110 H Pulse Rhythm Pulse Rhythm [Apical] Pulse Strength Pulse Strength [Apical] Respiratory Rate 15 16 Respiratory Effort / Characteristics Respiratory Depth Respiratory Pattern Blood Pressure 122/83 Blood Pressure [Right Arm] Blood Pressure Mean 99 Blood Pressure Mean [Right Arm] Blood Pressure Position Pulse Oximetry 98 95 Oxygen Delivery Method Sepsis Recent Fever Within 48 Hours Sepsis New/Unexplained Change in Mental Status Sepsis Action Taken by Nursing 11/12/23 12:52 11/12/23 12:56 11/12/23 13:00 Temperature Temperature Source Pulse Rate 106 H 102 H Pulse Rate [Apical] 104 H Pulse Rate from SpO2 Sensor 107 H Pulse Rhythm Regular Pulse Rhythm [Apical] Regular Pulse Strength Pulse Strength [Apical] Normal Respiratory Rate 20 20 14 Respiratory Effort / Characteristics Non-Labored Spontaneous Respiratory Depth Normal Respiratory Pattern Regular Blood Pressure Blood Pressure [Right Arm] 122/83 Blood Pressure Mean Blood Pressure Mean [Right Arm] 96 Blood Pressure Position Pulse Oximetry 97 97 97 Oxygen Delivery Method Room Air Room Air Sepsis Recent Fever Within 48 Hours Sepsis New/Unexplained Change in Mental Status Sepsis Action Taken by Nursing 11/12/23 13:00 11/12/23 13:11 11/12/23 13:15 Temperature Temperature Source Pulse Rate 147 H Pulse Rate [Apical] Pulse Rate from SpO2 Sensor 147 H Pulse Rhythm Pulse Rhythm [Apical] Pulse Strength Pulse Strength [Apical] Respiratory Rate 17 Respiratory Effort / Characteristics Respiratory Depth Respiratory Pattern Blood Pressure 109/81 124/86 Blood Pressure [Right Arm] Blood Pressure Mean 91 95 Blood Pressure Mean [Right Arm] Blood Pressure Position Pulse Oximetry 95 Oxygen Delivery Method Sepsis Recent Fever Within 48 Hours Sepsis New/Unexplained Change in Mental Status Sepsis Action Taken by Nursing 11/12/23 13:15 11/12/23 13:20 11/12/23 13:30 Temperature Temperature Source Pulse Rate 109 H 103 H Pulse Rate [Apical] Pulse Rate from SpO2 Sensor 109 H 104 H Pulse Rhythm Pulse Rhythm [Apical] Pulse Strength Pulse Strength [Apical] Respiratory Rate 22 14 Respiratory Effort / Characteristics Respiratory Depth Respiratory Pattern Blood Pressure 109/76 Blood Pressure [Right Arm] Blood Pressure Mean 86 Blood Pressure Mean [Right Arm] Blood Pressure Position Pulse Oximetry 96 96 Oxygen Delivery Method Sepsis Recent Fever Within 48 Hours Sepsis New/Unexplained Change in Mental Status Sepsis Action Taken by Nursing 11/12/23 13:30 11/12/23 13:40 11/12/23 13:45 Temperature Temperature Source Pulse Rate 101 H 95 H Pulse Rate [Apical] Pulse Rate from SpO2 Sensor 100 H 96 H Pulse Rhythm Pulse Rhythm [Apical] Pulse Strength Pulse Strength [Apical] Respiratory Rate 19 19 Respiratory Effort / Characteristics Respiratory Depth Respiratory Pattern Blood Pressure 115/71 Blood Pressure [Right Arm] Blood Pressure Mean 85 Blood Pressure Mean [Right Arm] Blood Pressure Position Pulse Oximetry 97 96 Oxygen Delivery Method Sepsis Recent Fever Within 48 Hours Sepsis New/Unexplained Change in Mental Status Sepsis Action Taken by Nursing 11/12/23 13:45 11/12/23 13:50 11/12/23 14:00 Temperature Temperature Source Pulse Rate 98 H 98 H Pulse Rate [Apical] Pulse Rate from SpO2 Sensor 97 H 98 H Pulse Rhythm Pulse Rhythm [Apical] Pulse Strength Pulse Strength [Apical] Respiratory Rate 20 21 Respiratory Effort / Characteristics Respiratory Depth Respiratory Pattern Blood Pressure 113/68 Blood Pressure [Right Arm] Blood Pressure Mean 84 Blood Pressure Mean [Right Arm] Blood Pressure Position Pulse Oximetry 95 94 Oxygen Delivery Method Sepsis Recent Fever Within 48 Hours Sepsis New/Unexplained Change in Mental Status Sepsis Action Taken by Nursing 11/12/23 14:00 11/12/23 14:09 11/12/23 14:10 Temperature Temperature Source Pulse Rate 98 H 93 H Pulse Rate [Apical] 94 H Pulse Rate from SpO2 Sensor 98 H 93 H Pulse Rhythm Pulse Rhythm [Apical] Pulse Strength Pulse Strength [Apical] Respiratory Rate 21 15 18 Respiratory Effort / Characteristics Non-Labored Spontaneous Respiratory Depth Normal Respiratory Pattern Regular Blood Pressure Blood Pressure [Right Arm] Blood Pressure Mean Blood Pressure Mean [Right Arm] Blood Pressure Position Pulse Oximetry 93 96 96 Oxygen Delivery Method Room Air Sepsis Recent Fever Within 48 Hours Sepsis New/Unexplained Change in Mental Status Sepsis Action Taken by Nursing 11/12/23 14:15 11/12/23 14:15 11/12/23 14:19 Temperature Temperature Source Pulse Rate 92 H 117 H Pulse Rate [Apical] Pulse Rate from SpO2 Sensor 93 H 118 H Pulse Rhythm Pulse Rhythm [Apical] Pulse Strength Pulse Strength [Apical] Respiratory Rate 19 22 Respiratory Effort / Characteristics Respiratory Depth Respiratory Pattern Blood Pressure 85/51 L Blood Pressure [Right Arm] Blood Pressure Mean 61 Blood Pressure Mean [Right Arm] Blood Pressure Position Pulse Oximetry 99 98 Oxygen Delivery Method Sepsis Recent Fever Within 48 Hours Sepsis New/Unexplained Change in Mental Status Sepsis Action Taken by Nursing 11/12/23 14:19 11/12/23 14:20 11/12/23 14:30 Temperature Temperature Source Pulse Rate 106 H 110 H Pulse Rate [Apical] Pulse Rate from SpO2 Sensor 103 H 111 H Pulse Rhythm Pulse Rhythm [Apical] Pulse Strength Pulse Strength [Apical] Respiratory Rate 12 13 Respiratory Effort / Characteristics Respiratory Depth Respiratory Pattern Blood Pressure 90/69 L Blood Pressure [Right Arm] Blood Pressure Mean 81 Blood Pressure Mean [Right Arm] Blood Pressure Position Pulse Oximetry 95 96 Oxygen Delivery Method Sepsis Recent Fever Within 48 Hours Sepsis New/Unexplained Change in Mental Status Sepsis Action Taken by Nursing 11/12/23 14:55 11/12/23 14:59 11/12/23 15:00 Temperature 37.2 C Temperature Source Oral Pulse Rate 153 H Pulse Rate [Apical] 147 H Pulse Rate from SpO2 Sensor 143 H 152 H Pulse Rhythm Pulse Rhythm [Apical] Regular Pulse Strength Pulse Strength [Apical] Normal Respiratory Rate 24 60 H Respiratory Effort / Characteristics Respiratory Depth Normal Respiratory Pattern Blood Pressure Blood Pressure [Right Arm] Blood Pressure Mean Blood Pressure Mean [Right Arm] Blood Pressure Position Pulse Oximetry 95 97 92 Oxygen Delivery Method Room Air Sepsis Recent Fever Within 48 Hours Sepsis New/Unexplained Change in Mental Status Sepsis Action Taken by Nursing 11/12/23 15:01 11/12/23 15:10 11/12/23 15:17 Temperature Temperature Source Pulse Rate 152 H 136 H 121 H Pulse Rate [Apical] Pulse Rate from SpO2 Sensor 151 H 137 H 119 H Pulse Rhythm Pulse Rhythm [Apical] Pulse Strength Pulse Strength [Apical] Respiratory Rate 44 H 15 Respiratory Effort / Characteristics Respiratory Depth Respiratory Pattern Blood Pressure Blood Pressure [Right Arm] Blood Pressure Mean Blood Pressure Mean [Right Arm] Blood Pressure Position Pulse Oximetry 96 95 98 Oxygen Delivery Method Sepsis Recent Fever Within 48 Hours Sepsis New/Unexplained Change in Mental Status Sepsis Action Taken by Nursing 11/12/23 15:17 11/12/23 15:20 11/12/23 15:30 Temperature Temperature Source Pulse Rate 132 H 142 H Pulse Rate [Apical] Pulse Rate from SpO2 Sensor 133 H Pulse Rhythm Pulse Rhythm [Apical] Pulse Strength Pulse Strength [Apical] Respiratory Rate 19 Respiratory Effort / Characteristics Respiratory Depth Respiratory Pattern Blood Pressure 100/57 L Blood Pressure [Right Arm] Blood Pressure Mean 73 Blood Pressure Mean [Right Arm] Blood Pressure Position Pulse Oximetry 99 Oxygen Delivery Method Sepsis Recent Fever Within 48 Hours Sepsis New/Unexplained Change in Mental Status Sepsis Action Taken by Nursing 11/12/23 15:40 11/12/23 15:46 11/12/23 15:46 Temperature Temperature Source Pulse Rate 141 H 144 H Pulse Rate [Apical] Pulse Rate from SpO2 Sensor 141 H 143 H Pulse Rhythm Pulse Rhythm [Apical] Pulse Strength Pulse Strength [Apical] Respiratory Rate 36 H 21 Respiratory Effort / Characteristics Respiratory Depth Respiratory Pattern Blood Pressure 171/91 H Blood Pressure [Right Arm] Blood Pressure Mean 115 Blood Pressure Mean [Right Arm] Blood Pressure Position Pulse Oximetry 96 97 Oxygen Delivery Method Sepsis Recent Fever Within 48 Hours Sepsis New/Unexplained Change in Mental Status Sepsis Action Taken by Nursing 11/12/23 15:50 11/12/23 16:00 11/12/23 16:00 Temperature Temperature Source Pulse Rate 135 H Pulse Rate [Apical] 116 H Pulse Rate from SpO2 Sensor 135 H Pulse Rhythm Pulse Rhythm [Apical] Regular Pulse Strength Pulse Strength [Apical] Respiratory Rate 20 20 Respiratory Effort / Characteristics Non-Labored Spontaneous Respiratory Depth Normal Respiratory Pattern Regular Blood Pressure 117/58 L Blood Pressure [Right Arm] Blood Pressure Mean 74 Blood Pressure Mean [Right Arm] Blood Pressure Position Pulse Oximetry 95 95 Oxygen Delivery Method Room Air Sepsis Recent Fever Within 48 Hours Sepsis New/Unexplained Change in Mental Status Sepsis Action Taken by Nursing 11/12/23 16:00 11/12/23 16:10 11/12/23 16:15 Temperature Temperature Source Pulse Rate 109 H 119 H Pulse Rate [Apical] Pulse Rate from SpO2 Sensor 109 H 119 H Pulse Rhythm Pulse Rhythm [Apical] Pulse Strength Pulse Strength [Apical] Respiratory Rate 22 14 Respiratory Effort / Characteristics Respiratory Depth Respiratory Pattern Blood Pressure 111/52 L Blood Pressure [Right Arm] Blood Pressure Mean 69 Blood Pressure Mean [Right Arm] Blood Pressure Position Pulse Oximetry 95 93 Oxygen Delivery Method Sepsis Recent Fever Within 48 Hours Sepsis New/Unexplained Change in Mental Status Sepsis Action Taken by Nursing 11/12/23 16:15 11/12/23 16:20 11/12/23 16:30 Temperature Temperature Source Pulse Rate 110 H 104 H 132 H Pulse Rate [Apical] Pulse Rate from SpO2 Sensor 111 H 105 H 129 H Pulse Rhythm Pulse Rhythm [Apical] Pulse Strength Pulse Strength [Apical] Respiratory Rate 14 22 12 Respiratory Effort / Characteristics Respiratory Depth Respiratory Pattern Blood Pressure Blood Pressure [Right Arm] Blood Pressure Mean Blood Pressure Mean [Right Arm] Blood Pressure Position Pulse Oximetry 94 91 98 Oxygen Delivery Method Sepsis Recent Fever Within 48 Hours Sepsis New/Unexplained Change in Mental Status Sepsis Action Taken by Nursing 11/12/23 16:30 11/12/23 16:40 11/12/23 16:45 Temperature Temperature Source Pulse Rate 122 H Pulse Rate [Apical] Pulse Rate from SpO2 Sensor 124 H 134 H Pulse Rhythm Pulse Rhythm [Apical] Pulse Strength Pulse Strength [Apical] Respiratory Rate 32 H Respiratory Effort / Characteristics Respiratory Depth Respiratory Pattern Blood Pressure 98/78 L Blood Pressure [Right Arm] Blood Pressure Mean 83 Blood Pressure Mean [Right Arm] Blood Pressure Position Pulse Oximetry 93 93 Oxygen Delivery Method Sepsis Recent Fever Within 48 Hours Sepsis New/Unexplained Change in Mental Status Sepsis Action Taken by Nursing 11/12/23 16:45 11/12/23 16:50 11/12/23 16:59 Temperature Temperature Source Pulse Rate 117 H 116 H Pulse Rate [Apical] Pulse Rate from SpO2 Sensor 117 H 115 H Pulse Rhythm Pulse Rhythm [Apical] Pulse Strength Pulse Strength [Apical] Respiratory Rate 20 25 H Respiratory Effort / Characteristics Respiratory Depth Respiratory Pattern Blood Pressure 140/83 Blood Pressure [Right Arm] Blood Pressure Mean 99 Blood Pressure Mean [Right Arm] Blood Pressure Position Pulse Oximetry 94 95 Oxygen Delivery Method Sepsis Recent Fever Within 48 Hours Sepsis New/Unexplained Change in Mental Status Sepsis Action Taken by Nursing 11/12/23 17:00 11/12/23 17:00 11/12/23 17:13 Temperature Temperature Source Pulse Rate 120 H 109 H Pulse Rate [Apical] Pulse Rate from SpO2 Sensor 119 H Pulse Rhythm Pulse Rhythm [Apical] Pulse Strength Pulse Strength [Apical] Respiratory Rate 24 Respiratory Effort / Characteristics Respiratory Depth Respiratory Pattern Blood Pressure 123/72 Blood Pressure [Right Arm] Blood Pressure Mean 86 Blood Pressure Mean [Right Arm] Blood Pressure Position Pulse Oximetry 94 Oxygen Delivery Method Sepsis Recent Fever Within 48 Hours Sepsis New/Unexplained Change in Mental Status Sepsis Action Taken by Nursing 11/12/23 17:15 11/12/23 17:15 Temperature Temperature Source Pulse Rate 109 H Pulse Rate [Apical] Pulse Rate from SpO2 Sensor 109 H Pulse Rhythm Pulse Rhythm [Apical] Pulse Strength Pulse Strength [Apical] Respiratory Rate Respiratory Effort / Characteristics Respiratory Depth Respiratory Pattern Blood Pressure 112/61 Blood Pressure [Right Arm] Blood Pressure Mean 78 Blood Pressure Mean [Right Arm] Blood Pressure Position Pulse Oximetry 93 Oxygen Delivery Method Sepsis Recent Fever Within 48 Hours Sepsis New/Unexplained Change in Mental Status Sepsis Action Taken by Nursing Laboratory Data 11/12/23 12:35 11/12/23 12:35 Lab Results 11/12/23 11/12/23 11/12/23 Range/Units 12:35 12:45 13:00 WBC 15.14 H (4.8-10.8) K/ul RBC 5.66 (4.70-6.10) M/uL Hgb 17.1 (14.0-18.0) g/dl Hct 49.9 (42.0-52.0) % MCV 88.2 (80.0-100.0) fL MCH 30.2 (25.0-34.0) pg MCHC 34.3 (32.0-36.0) g/dL RDW Std Deviation 42.1 (36.4-46.3) fL RDW Coeff of Carlos 13.0 (11.5-14.5) % Plt Count 425 H (130-400) K/uL MPV 9.4 (9.4-12.4) fL Immature Gran % (Auto) 0.4 % Neut % (Auto) 69.9 % Lymph % (Auto) 21.3 % Peach % (Auto) 7.7 % Eos % (Auto) 0.3 % Baso % (Auto) 0.4 % Neut # (Auto) 10.58 H (1.40-6.50) K/uL Lymph # (Auto) 3.23 (1.20-3.40) K/uL Peach # (Auto) 1.16 H (0.11-0.59) K/uL Eos # (Auto) 0.05 (0.00-0.50) K/uL Baso # (Auto) 0.06 (0.00-0.20) K/uL Immature Gran # (Auto) 0.06 (0.01-0.20) K/uL VBG pH 7.53 H (7.36-7.41) VBG pCO2 40 (38-50) mmHg VBG pO2 < 20 mmHg VBG HCO3 33 mmol/L VBG O2 Saturation < 60.0 % VBG Base Excess 9.8 mEq/L Sodium 138 (136-145) mmol/L Potassium 2.8 L (3.5-5.1) mmol/L Chloride 92 L (98-107) mmol/L Carbon Dioxide 31 (21-32) mmol/L Anion Gap 15 H (3-11) BUN 17 (6-23) mg/dl Creatinine 1.15 (0.6-1.4) mg/dl Est Cr Clr Drug Dosing Not Reportable Est GFR ( Amer) 100.5 ml/min Est GFR (Non-Af Amer) 86.7 ml/min BUN/Creatinine Ratio 14.8 (10-20) Glucose 47 L* (70-99(Fasting)) mg/dl POC Glucose (70-99) mg/dl Lactate 2.2 H* (0.4-2.0) mmol/L Calcium 10.4 H (8.6-10.3) mg/dl Magnesium 1.7 (1.7-2.4) mg/dl Total Bilirubin 1.1 H (0.2-1.0) mg/dl AST 18 (13-39) U/L ALT 12 (7-52) U/L Alkaline Phosphatase 111 H (34-104) U/L Total Protein 8.5 H (6.0-8.3) gm/dl Albumin 5.1 H (3.4-5.0) gm/dl Globulin 3.4 (2.5-4.0) gm/dl Albumin/Globulin Ratio 1.5 (0.9-2) Lipase 11 (11-82) U/L Procalcitonin 0.03 (0-0.5) ng/ml Adenovirus (PCR) (NotDetected) B. pertussis DNA (PCR) (NotDetected) B.parapertussis DNA PCR (NotDetected) C. pneumoniae DNA (PCR) (NotDetected) Coronavirus OC43 (PCR) (NotDetected) Coronavirus HKU1 (PCR) (NotDetected) Coronavirus 229E (PCR) (NotDetected) SARS-CoV-2 (PCR) (NotDetected) Coronavirus NL63 (PCR) (NotDetected) Human Metapneumovir PCR (NotDetected) Influenza Type A (PCR) (NotDetected) Influenza Type B (PCR) (NotDetected) M. pneumoniae (PCR) (NotDetected) Parainfluenza 1 (PCR) (NotDetected) Parainfluenza 2 (PCR) (NotDetected) Parainfluenza 3 (PCR) (NotDetected) Parainfluenza 4 (PCR) (NotDetected) RSV (PCR) (NotDetected) Entero/Rhino (PCR) (NotDetected) 11/12/23 11/12/23 11/12/23 Range/Units 14:04 14:28 15:00 WBC (4.8-10.8) K/ul RBC (4.70-6.10) M/uL Hgb (14.0-18.0) g/dl Hct (42.0-52.0) % MCV (80.0-100.0) fL MCH (25.0-34.0) pg MCHC (32.0-36.0) g/dL RDW Std Deviation (36.4-46.3) fL RDW Coeff of Carlos (11.5-14.5) % Plt Count (130-400) K/uL MPV (9.4-12.4) fL Immature Gran % (Auto) % Neut % (Auto) % Lymph % (Auto) % Peach % (Auto) % Eos % (Auto) % Baso % (Auto) % Neut # (Auto) (1.40-6.50) K/uL Lymph # (Auto) (1.20-3.40) K/uL Peach # (Auto) (0.11-0.59) K/uL Eos # (Auto) (0.00-0.50) K/uL Baso # (Auto) (0.00-0.20) K/uL Immature Gran # (Auto) (0.01-0.20) K/uL VBG pH (7.36-7.41) VBG pCO2 (38-50) mmHg VBG pO2 mmHg VBG HCO3 mmol/L VBG O2 Saturation % VBG Base Excess mEq/L Sodium (136-145) mmol/L Potassium (3.5-5.1) mmol/L Chloride (98-107) mmol/L Carbon Dioxide (21-32) mmol/L Anion Gap (3-11) BUN (6-23) mg/dl Creatinine (0.6-1.4) mg/dl Est Cr Clr Drug Dosing Est GFR ( Amer) ml/min Est GFR (Non-Af Amer) ml/min BUN/Creatinine Ratio (10-20) Glucose (70-99(Fasting)) mg/dl POC Glucose 159 H (70-99) mg/dl Lactate 2.1 H* (0.4-2.0) mmol/L Calcium (8.6-10.3) mg/dl Magnesium (1.7-2.4) mg/dl Total Bilirubin (0.2-1.0) mg/dl AST (13-39) U/L ALT (7-52) U/L Alkaline Phosphatase (34-104) U/L Total Protein (6.0-8.3) gm/dl Albumin (3.4-5.0) gm/dl Globulin (2.5-4.0) gm/dl Albumin/Globulin Ratio (0.9-2) Lipase (11-82) U/L Procalcitonin (0-0.5) ng/ml Adenovirus (PCR) Not Detected (NotDetected) B. pertussis DNA (PCR) Not Detected (NotDetected) B.parapertussis DNA PCR Not Detected (NotDetected) C. pneumoniae DNA (PCR) Not Detected (NotDetected) Coronavirus OC43 (PCR) Not Detected (NotDetected) Coronavirus HKU1 (PCR) Not Detected (NotDetected) Coronavirus 229E (PCR) Not Detected (NotDetected) SARS-CoV-2 (PCR) Not Detected (NotDetected) Coronavirus NL63 (PCR) Not Detected (NotDetected) Human Metapneumovir PCR Not Detected (NotDetected) Influenza Type A (PCR) Not Detected (NotDetected) Influenza Type B (PCR) Not Detected (NotDetected) M. pneumoniae (PCR) Not Detected (NotDetected) Parainfluenza 1 (PCR) Not Detected (NotDetected) Parainfluenza 2 (PCR) Not Detected (NotDetected) Parainfluenza 3 (PCR) Not Detected (NotDetected) Parainfluenza 4 (PCR) Not Detected (NotDetected) RSV (PCR) Not Detected (NotDetected) Entero/Rhino (PCR) Not Detected (NotDetected) 11/12/23 11/12/23 Range/Units 15:15 16:38 WBC (4.8-10.8) K/ul RBC (4.70-6.10) M/uL Hgb (14.0-18.0) g/dl Hct (42.0-52.0) % MCV (80.0-100.0) fL MCH (25.0-34.0) pg MCHC (32.0-36.0) g/dL RDW Std Deviation (36.4-46.3) fL RDW Coeff of Carlos (11.5-14.5) % Plt Count (130-400) K/uL MPV (9.4-12.4) fL Immature Gran % (Auto) % Neut % (Auto) % Lymph % (Auto) % Peach % (Auto) % Eos % (Auto) % Baso % (Auto) % Neut # (Auto) (1.40-6.50) K/uL Lymph # (Auto) (1.20-3.40) K/uL Peach # (Auto) (0.11-0.59) K/uL Eos # (Auto) (0.00-0.50) K/uL Baso # (Auto) (0.00-0.20) K/uL Immature Gran # (Auto) (0.01-0.20) K/uL VBG pH (7.36-7.41) VBG pCO2 (38-50) mmHg VBG pO2 mmHg VBG HCO3 mmol/L VBG O2 Saturation % VBG Base Excess mEq/L Sodium (136-145) mmol/L Potassium (3.5-5.1) mmol/L Chloride (98-107) mmol/L Carbon Dioxide (21-32) mmol/L Anion Gap (3-11) BUN (6-23) mg/dl Creatinine (0.6-1.4) mg/dl Est Cr Clr Drug Dosing Est GFR ( Amer) ml/min Est GFR (Non-Af Amer) ml/min BUN/Creatinine Ratio (10-20) Glucose (70-99(Fasting)) mg/dl POC Glucose 287 H (70-99) mg/dl Lactate 5.3 H* (0.4-2.0) mmol/L Calcium (8.6-10.3) mg/dl Magnesium (1.7-2.4) mg/dl Total Bilirubin (0.2-1.0) mg/dl AST (13-39) U/L ALT (7-52) U/L Alkaline Phosphatase (34-104) U/L Total Protein (6.0-8.3) gm/dl Albumin (3.4-5.0) gm/dl Globulin (2.5-4.0) gm/dl Albumin/Globulin Ratio (0.9-2) Lipase (11-82) U/L Procalcitonin (0-0.5) ng/ml Adenovirus (PCR) (NotDetected) B. pertussis DNA (PCR) (NotDetected) B.parapertussis DNA PCR (NotDetected) C. pneumoniae DNA (PCR) (NotDetected) Coronavirus OC43 (PCR) (NotDetected) Coronavirus HKU1 (PCR) (NotDetected) Coronavirus 229E (PCR) (NotDetected) SARS-CoV-2 (PCR) (NotDetected) Coronavirus NL63 (PCR) (NotDetected) Human Metapneumovir PCR (NotDetected) Influenza Type A (PCR) (NotDetected) Influenza Type B (PCR) (NotDetected) M. pneumoniae (PCR) (NotDetected) Parainfluenza 1 (PCR) (NotDetected) Parainfluenza 2 (PCR) (NotDetected) Parainfluenza 3 (PCR) (NotDetected) Parainfluenza 4 (PCR) (NotDetected) RSV (PCR) (NotDetected) Entero/Rhino (PCR) (NotDetected) Administered Medications Sodium Chloride (Nss) 1,000 mls @ 150 mls/hr IV .Q6H40M STA Stop: 11/12/23 21:34 Last Admin: 11/12/23 15:00 Dose: 150 mls/hr Documented By: JENN Discontinued Medications Dextrose (Dextrose 50% 50 Ml Syringe) 50 ml IV NOW STA Stop: 11/12/23 13:27 Last Admin: 11/12/23 13:32 Dose: 50 ml Documented By: JENN Diphenhydramine HCl (Diphenhydramine 50 Mg/Ml Vial) 50 mg IV NOW STA Stop: 11/12/23 12:25 Last Admin: 11/12/23 12:38 Dose: 50 mg Documented By: JENN Fentanyl Citrate (Fentanyl Citrate Pf 100 Mcg/2 Ml Vial) 25 mcg IV NOW STA Stop: 11/12/23 16:41 Last Admin: 11/12/23 16:50 Dose: 25 mcg Documented By: JENN Haloperidol Lactate (Haloperidol Lactate 5 Mg/Ml 1 Ml Vial) 5 mg IV NOW STA Stop: 11/12/23 15:06 Last Admin: 11/12/23 15:10 Dose: 5 mg Documented By: JENN Sodium Chloride (Nss) 2,000 mls @ 999 mls/hr IV .Q2H1M ONE Stop: 11/12/23 14:24 Last Infusion: 11/12/23 14:33 Dose: Infused Documented By: Admin: 11/12/23 12:38 Dose: 999 mls/hr Documented By: JENN Prochlorperazine (Compazine) 2 mls @ 1 mls/min IV ONE ONE Stop: 11/12/23 12:25 Last Admin: 11/12/23 12:38 Dose: 1 mls/min Documented By: JENN Potassium Chloride (K Haja / Wtr) 10 meq in 100 mls @ 100 mls/hr IV Q1H YUE Stop: 11/12/23 15:29 Last Infusion: 11/12/23 15:58 Dose: Infused Documented By: Admin: 11/12/23 14:54 Dose: 100 mls/hr Documented By: Infusion: 11/12/23 14:33 Dose: Infused Documented By: [facility] Admin: 11/12/23 13:33 Dose: 100 mls/hr Documented By: JENN Ioversol (Optiray 320 100ml) 93 ml IV ONCE ONE Stop: 11/12/23 14:37 Last Admin: 11/12/23 14:37 Dose: 93 ml Documented By: KEN Ketorolac Tromethamine (Ketorolac 30 Mg/Ml Vial) 30 mg IV NOW ONE Stop: 11/12/23 13:17 Last Admin: 11/12/23 13:22 Dose: 30 mg Documented By: RON Imaging Data Radiologist's Impression: KUB X-Ray 11/12/23 14:13 KUB HISTORY: Acute generalized abdominal pain with nausea and vomiting abdominal pain; vomiting COMPARISON: 10/29/2023 FINDINGS: Cholecystectomy. The left abdomen is excluded from the [id number]-[id number]. Noncontrasted bowel gas pattern. Chronic left pelvic basin calcifications. No renal calculi. No ureteral calculi. No pneumoperitoneum or pneumatosis. No fracture. IMPRESSION: 1. Limited exam secondary to positioning. The left abdomen is excluded from the [id number]. 2. Nonobstructive bowel gas pattern. ACT 112: Negative or not required by law. The above report was generated using voice recognition software. It may contain grammatical, syntax or spelling errors. Electronically signed by: Hu Sorto M.D. 11/12/2023 2:52 PM Abdomen/Pelvis CT 11/12/23 14:[address] WITH IV CONTRAST CT DOSE: 826.05 mGy.cm HISTORY: Acute generalized abdominal pain with nausea and vomiting abdominal pain; vomiting TECHNIQUE: Multiaxial CT images of the abdomen and pelvis were performed following the IV administration of 93 cc of Optiray, A dose lowering technique was utilized adhering to the principles of ALARA. COMPARISON STUDY: 05/24/2023 FINDINGS: The lung bases are clear. Cholecystectomy. The mildly enlarged liver, spleen, pancreas, kidneys, and adrenal glands are within normal limits. There is no bowel obstruction. There is mild diffuse wall thickening of the large bowel partial distention. The visualized appendix appears noninflamed. The pelvic organs are unremarkable. Unchanged benign-appearing lucent lesion of the left ischial tuberosity. Chronic L3 compression deformity. IMPRESSION: 1. No bowel obstruction or pneumoperitoneum. 2. No CT evidence of acute appendicitis. 3. Cholecystectomy. 4. Mild diffuse wall thickening of the large bowel may be secondary to partial distention versus a mild nonspecific colitis. ACT 112: Negative or not required by law. The above report was generated using voice recognition software. It may contain grammatical, syntax or spelling errors. Electronically signed by: Hu Sorto M.D. 11/12/2023 5:27 PM Discharge Plan Visit Data Chief Complaint: Abdominal Pain Stated Complaint: ABD PAIN, NAUSEA ED Provider: Marguerite Méndez Discharge Problem: Acute dehydration, Acute hypokalemia, Intractable nausea and vomiting, Abdominal pain, Elevated lactic acid level Forms Stand Alone Forms: [employer] Prescriptions Prescriptions: No Action Baqsimi 3 mg/actuation spray,non-aerosol 3 mg INTNAS DIRECTED PRN (Reason: Hypoglycemia) Qty: 2 1RF (DME) Contour Next Test Strips Strip See Rx Instructions .Route Qty: 400 3RF Rx Instructions: Test blood sugar four times daily insulin aspart U-100 100 unit/mL solution 0 unit continuous subcutaneous infusion CONTINOUS MDD 60 UNITS/DAILY pantoprazole 40 mg tablet,delayed release (DR/EC) 40 mg PO DAILY PRN (Reason: GERD) Referrals Referrals: Oneil Tinajero MD [Primary Care Provider] -
[2023-11-12] MEDS: PROCHLORPERAZINE 2 ML IV ONE (12:38)
[2023-11-12] MEDS: diphenhydrAMINE 50 MG/ML VIAL IV STA (12:38)
[2023-11-12] MEDS: SODIUM CHLORIDE 0.9% 2,000 ML IV ONE (12:38)
[2023-11-12 12:53] LABS: Basophils # (auto) 0.06 K/uL (0.00-0.20); Basophils % (auto) 0.4 %; Eosinophils # (auto) 0.05 K/uL (0.00-0.50); Eosinophils % (auto) 0.3 %; Hematocrit (blood only) 49.9 % (42.0-52.0); Hemoglobin 17.1 g/dl (14.0-18.0); Immature Granulocytes # (auto) 0.06 K/uL (0.01-0.20); Immature Granulocytes % (auto) 0.4 %; Lymphocytes # (auto) 3.23 K/uL (1.20-3.40); Lymphocytes % (auto) 21.3 %; Mean Corpuscular Hemoglobin 30.2 pg (25.0-34.0); Mean Corpuscular Hgb Conc 34.3 g/dL (32.0-36.0); Mean Corpuscular Volume 88.2 fL (80.0-100.0); Mean Platelet Volume 9.4 fL (9.4-12.4); Monocytes # (auto) 1.16 K/uL (0.11-0.59); Monocytes % (auto) 7.7 %; Neutrophils # (auto) 10.58 K/uL (1.40-6.50); Neutrophils % (auto) 69.9 %; Platelet Count 425 K/uL (130-400); RDW Standard Deviation 42.1 fL (36.4-46.3); Red Blood Count 5.66 M/uL (4.70-6.10); White Blood Count 15.14 K/ul (4.8-10.8)
[2023-11-12 13:09] LABS: Base Excess VBG 9.8 mEq/L; HCO3 VBG 33 mmol/L; Oxygen Saturation VBG < 60.0 %; PCO2 VBG 40 mmHg (38-50); PO2 VBG < 20 mmHg; pH VBG 7.53 (7.36-7.41)
[2023-11-12] MEDS: KETOROLAC 30 MG/ML VIAL IV ONE (13:22)
[2023-11-12 13:24] LABS: Alanine Aminotransferase 12 U/L (7-52); Albumin Globulin Ratio 1.5 (0.9-2); Albumin Level 5.1 gm/dl (3.4-5.0); Alkaline Phosphatase 111 U/L (34-104); Anion Gap 15 (3-11); Aspartate Aminotransferase 18 U/L (13-39); BUN Creatinine Ratio 14.8 (10-20); Bilirubin,Total 1.1 mg/dl (0.2-1.0); Blood Urea Nitrogen 17 mg/dl (6-23); Calcium 10.4 mg/dl (8.6-10.3); Carbon Dioxide 31 mmol/L (21-32); Chloride 92 mmol/L (98-107); Est GFR (African American) 100.5 ml/min; Est GFR (Non-African American) 86.7 ml/min; Globulin 3.4 gm/dl (2.5-4.0); Glucose 47 mg/dl (70-99(Fasting)); Lipase 11 U/L (11-82); Potassium 2.8 mmol/L (3.5-5.1); Sodium 138 mmol/L (136-145); Total Protein 8.5 gm/dl (6.0-8.3)
[2023-11-12] MEDS: DEXTROSE 50% 50 ML SYRINGE IV STA (13:32)
[2023-11-12] MEDS: POTASSIUM CHLORIDE / WTR 10 MEQ/100 ML PLCT IV SCH ×2 (13:33→18:30)
[2023-11-12 13:42] LABS: Magnesium 1.7 mg/dl (1.7-2.4)
[2023-11-12] MEDS: OPTIRAY 320 100ml IV ONE (14:37)
--- NOTE | 2023-11-12 14:54 | XRay Report ---
KUB HISTORY: Acute generalized abdominal pain with nausea and vomiting abdominal pain; vomiting COMPARISON: 10/29/2023 FINDINGS: Cholecystectomy. The left abdomen is excluded from the [id number]. Noncontrasted bowel g as pattern. Chronic left pelvic basin calcifications. No renal calculi. No ureteral calculi. No pneu moperitoneum or pneumatosis. No fracture. IMPRESSION: 1. Limited exam secondary to positioning. The left abdomen is excluded from the [id number]. 2. Nonobstructive bowel gas pattern. ACT 112: Negative or not required by law. The above report was generated using voice recognition software. It may contain grammatical, syntax o r spelling errors. Electronically signed by: Hu Sorto M.D. 11/12/2023 2:52 PM
[2023-11-12] MEDS: SODIUM CHLORIDE 0.9% 1,000 ML IV STA (15:00)
[2023-11-12] MEDS: HALOPERIDOL LACTATE 5 MG/ML 1 ML VIAL IV STA (15:10)
[2023-11-12 16:03] LABS: Adenovirus PCR Not Detected (NotDetected); Bordetella parapertussis PCR Not Detected (NotDetected); Bordetella pertussis PCR Not Detected (NotDetected); Chlamydia pneumoniae PCR Not Detected (NotDetected); Coronavirus 229E PCR Not Detected (NotDetected); Coronavirus CoV-2 (COVID19)PCR Not Detected (NotDetected); Coronavirus HKU1 PCR Not Detected (NotDetected); Coronavirus NL63 PCR Not Detected (NotDetected); Coronavirus OC43PCR Not Detected (NotDetected); Human Metapneumovirus PCR Not Detected (NotDetected); Influenza A PCR Not Detected (NotDetected); Influenza B PCR Not Detected (NotDetected); Mycoplasma pneumoniae PCR Not Detected (NotDetected); Parainfluenza Virus 1 PCR Not Detected (NotDetected); Parainfluenza Virus 2 PCR Not Detected (NotDetected); Parainfluenza Virus 3 PCR Not Detected (NotDetected); Parainfluenza Virus 4 PCR Not Detected (NotDetected); Respiratory Syncytial VirusPCR Not Detected (NotDetected); Rhinovirus/Enterovirus PCR Not Detected (NotDetected)
[2023-11-12] MEDS: fentaNYL citrate PF 100 MCG/2 ML VIAL IV STA (16:50)
--- NOTE | 2023-11-12 17:30 | CT Scan Report ---
ABDOMEN AND PELVIS CT WITH IV CONTRAST CT DOSE: 826.05 mGy.cm HISTORY: Acute generalized abdominal pain with nausea and vomiting abdominal pain; vomiting TECHNIQUE: Multiaxial CT images of the abdomen and pelvis were performed following the IV administrat ion of 93 cc of Optiray, A dose lowering technique was utilized adhering to the principles of ALARA. COMPARISON STUDY: 05/24/2023 FINDINGS: The lung bases are clear. Cholecystectomy. The mildly enlarged liver, spleen, pancreas, kid neys, and adrenal glands are within normal limits. There is no bowel obstruction. There is mild diffu se wall thickening of the large bowel partial distention. The visualized appendix appears noninflamed . The pelvic organs are unremarkable. Unchanged benign-appearing lucent lesion of the left ischial tu berosity. Chronic L3 compression deformity. IMPRESSION: 1. No bowel obstruction or pneumoperitoneum. 2. No CT evidence of acute appendicitis. 3. Cholecystectomy. 4. Mild diffuse wall thickening of the large bowel may be secondary to partial distention versus a mi ld nonspecific colitis. ACT 112: Negative or not required by law. The above report was generated using voice recognition software. It may contain grammatical, syntax o r spelling errors. Electronically signed by: Hu Sorto M.D. 11/12/2023 5:27 PM
[2023-11-12] MEDS: FAMOTIDINE 20MG IV PUSH 20 MG/5 ML SYR IV STA (18:23)
[2023-11-12] MEDS: SODIUM CHLORIDE 0.9% 1,000 ML IV ONE (18:28)
[2023-11-12] MEDS: PANTOprazole 40 MG in SYRINGE 0 ML IV STA (18:51)
[2023-11-12 19:35] LABS: Base Excess VBG -1.8 mEq/L; HCO3 VBG 23 mmol/L; Oxygen Saturation VBG 87.2 %; PCO2 VBG 39 mmHg (38-50); PO2 VBG 55 mmHg; pH VBG 7.38 (7.36-7.41)
[2023-11-12 19:39] LABS: BUN Creatinine Ratio 16.7 (10-20); Calcium 8.5 mg/dl (8.6-10.3); Creatinine Clr Calc Pharmacy 106.1 ml/min; Est GFR (African American) 95.5 ml/min; Est GFR (Non-African American) 82.4 ml/min; Magnesium 1.7 mg/dl (1.7-2.4); Phosphorus 2.2 mg/dl (2.5-4.9); Potassium 4.1 mmol/L (3.5-5.1)
[2023-11-12] MEDS ORDERED: STAT IV Infusion **Titration per Protocol STA ×2 (19:41→20:08)
[2023-11-12] MEDS ORDERED: PHARMACY GLYCEMIC MGMT CONSULT PRN (19:41)
[2023-11-12] MEDS ORDERED: INSULIN REGULAR 250 UNITS in SODIUM CHLORIDE 0.9% 247.5 ML IV SCH (19:45)
--- NOTE | 2023-11-12 19:48 | History & Physical Report ---
Date of Service November 12, 2023 Assessment & Plan (1) Intractable nausea and vomiting: Plan: Hx of cannabis hyperemesis syndrome, diabetic gastroparesis Ondansetron 1st line Phenergan 12.5mg 2nd line Very dehydrated on exam - will utilize IV fluids DKA protocol overnight Monitor K and Mg Urine drug screen (2) GERD (gastroesophageal reflux disease): Plan: Pantoprazole 40mg IV daily, famotidine 20mg IV daily (3) Diabetes type 1, uncontrolled: Plan: No DKA but high risk of this developing this with history of missed insulin dosing and multiple prior episodes of DKA Start hyperglycemia insulin IV drip once potassium > 3.5 q4h labs (4) Leucocytosis: Plan: Historically this has resolved with stress of vomiting as cause Procalcitonin negative Follow up blood cultures - also historically negative CXR with no pneumonia UA non infective appearing If spikes a temp could consider dental caries as source and cover empirically (5) Muscle spasm: Plan: Suspect due to electrolytes imbalance and active nausea and vomiting Should resolve - this is not unusual for his episodes Will give diazepam 2mg IV now and monitor (6) Cannabinoid hyperemesis syndrome: (7) Acute hypokalemia: Plan VTE Prophylaxis - low risk Diet - NPO Disposition - admit to PCU Admission and Anticipated Discharge Date Admission Date: November 12, 2023 History of Present Illness Chief Complaint: Abdominal pain, nausea, vomiting Primary Care Provider: Oneil Tinajero MD Luis Tijerina is a 28 year old male with T1DM, history of cocaine and opiate use, gastroparesis and cannabis hyperemesis who presents to the ER with generalized myalgias, abdominal pain, nausea and vomiting. He reports symptoms started yesterday evening. He reports taking his basal insulin 45 units last night. Last took short acting insulin 12 units at lunch time. He reports this is simlar to his prior hospitalizations. No fever, chills, recent respiratory or urinary symptoms. He denies any illicit drug use including cannabis although this is usually the case even when his urine drug screen is always positive for cannabis or occasionally cocaine. He feels his whole body is having a muscle spasm. Allergies Allergy/AdvReac Type Severity Reaction Status Date / Time Cephalosporins Allergy Intermediate Hives Verified 11/12/23 13:06 Sulfa (Sulfonamide Allergy Intermediate Hives Verified 11/12/23 13:06 Antibiotics) azithromycin [From Zithromax] AdvReac Intermediate Hives Verified 11/12/23 13:06 Home Medications Medication Instructions Recorded Confirmed Type blood sugar diagnostic (Contour #[id number] ea 08/06/21 11/10/22 Rx Next Test Strips) glucagon 3 mg/actuation nasal 3 mg intranasal DIRECTED PRN 11/02/21 11/12/23 Rx spray (Baqsimi) Hypoglycemia #2 ea insulin aspart U-100 100 unit/mL 0 unit continuous subcutaneous 07/31/23 11/12/23 History subcutaneous solution infusion CONTINOUS pantoprazole 40 mg tablet,delayed 40 mg PO DAILY PRN GERD 10/29/23 11/12/23 History release Past Med/Surg History Problem List (Updated 11/13/23 @ 07:01 by Jon Miranda MD) Leucocytosis Muscle spasm Elevated lactic acid level (Acute) Abdominal pain (Acute) Intractable nausea and vomiting (Acute) Acute hypokalemia (Acute) Acute dehydration (Acute) GERD (gastroesophageal reflux disease) Intractable nausea and vomiting (Acute) Cocaine abuse High anion gap metabolic acidosis Nausea & vomiting Back spasm Vitamin D deficiency Cannabinoid hyperemesis syndrome (Acute) Acute dehydration (Acute) Vomiting (Acute) Diffuse abdominal pain (Acute) Acute hyperglycemia (Acute) Hx laparoscopic cholecystectomy (07/27/22) Laparoscopic Cholecystectomy, Repair of Incidental Enterotomy - Carlos Vigil DO HCV (hepatitis C virus) Hyperbilirubinemia Transaminitis Cannabinoid hyperemesis syndrome Diabetes type 1, uncontrolled (Acute) Infected dental caries Cystic lesion of maxilla determined by X-ray Dental fistula Esophagitis Back pain Abnormal CT of the abdomen (Acute) Acute hypokalemia (Acute) Elevated glucose (Acute) Hypokalemia (Acute) Gastroparesis (Acute) Acute dehydration (Acute) Vomiting (Acute) Acute dehydration (Acute) DVT prophylaxis History of opioid abuse (Acute) Diabetes mellitus type 1 with complications (Acute) Medical History (Updated 11/13/23 @ 07:01 by Jon Miranda MD) DKA (diabetic ketoacidoses) Intractable vomiting with nausea Choledocholithiasis Cholelithiasis Hypokalemia Hypomagnesemia Intractable cyclical vomiting with nausea Hematemesis Methadone dependence Cyclic vomiting syndrome Marijuana use Intractable vomiting with nausea Type I diabetes mellitus Soft tissue abscess Pneumomediastinum Hepatitis Family History Father Valvular heart disease Mother Hypothyroidism Other Cancer Diabetes Heart disease Hypertension Social History Smoking Status: Former smoker Tobacco Type: Cigarettes Cigarettes Per Day: 3; Second Hand Exposure: No; Do You Dip or Chew Tobacco: No; Tobacco Cessation Education Requested by Patient: No Hx Alcohol Use: No Hx Substance Use: Yes Prescribed Medications: Opiates Non-Prescribed Medications: Marijuana Last Used Substance: Days (ago) Last Used Substance Other:: Medical Marijuana Substance Use Type Other:: 1 week ago Preferred Language: Welsh Communication Ability: Effective Stereo Equipment Repairer Required: No Beliefs That Will Affect Care: None marital status: Single Current Living Situation: Family current occupational status: unemployed How many Children do You have: 0 Other Information That Helps Us Care for You: No Feels Safe at Home: Yes Safety Concerns: Feels Safe At This Time Diet: diabetic during the past year weight has: decreased > 10 lbs Assistive Devices: None Review of Systems Review of Systems: All systems reviewed & are unremarkable except as noted in HPI & below Physical Exam Constitutional: well developed and + acute distress; + not well nourished Eyes: PERRL, conjunctivae normal, anicteric sclerae ENMT: Mouth: + dry oral mucous membranes, + dental caries and + poor dentition Respiratory: normal respiratory effort, lungs clear to auscultation Cardiovascular: Rate/Rhythm: regular rhythm and + tachycardic Heart Sounds: no murmur Gastrointestinal (Abdomen): normal bowel sounds, soft, nontender, no hepatosplenomegaly Musculoskeletal: no cyanosis or clubbing, extremities motor strength 5/5 Skin: no rashes, warm and dry Neurologic: moves all extremities and awake; not confused Psychiatric: A+Ox3, euthymic affect Results & Data Results & Data Vital Signs (Past 12 Hours) Vital Signs Temp Pulse Pulse Resp BP BP Pulse Ox 11/12/23 19:20 94 11/12/23 19:15 130/81 11/12/23 19:15 95 11/12/23 19:10 95 11/12/23 19:00 135/81 11/12/23 19:00 115 H 23 94 11/12/23 18:50 109 H 94 11/12/23 18:46 115 H 20 126/77 94 11/12/23 18:45 126/77 05/18/24 18:45 95 0524 18:40 113 H 94 0524 18:30 146/66 H 05 18:30 112 H 95 05 18:20 114 H 92 05 18:16 147/89 H 11/12/23 18:16 119 H 96 05 18:10 124 H 05 18:00 148/96 H 11/12/23 18:00 122 H 94 05 17:51 123 H 15 97 05 17:45 123 H 17 96 05 17:45 122/69 05 17:40 122 H 18 92 11/12/23 17:30 120 H 15 94 11/12/23 17:30 109/74 05 17:20 112 H 91 11/12/23 17:15 112/61 05 17:15 109 H 93 11/12/23 17:13 109 H 11/12/23 17:00 120 H 24 94 11/12/23 17:00 123/72 11/12/23 16:59 116 H 25 H 95 11/12/23 16:50 117 H 20 94 11/12/23 16:45 140/83 11/12/23 16:45 93 05 16:40 122 H 32 H 93 11/12/23 16:30 98/78 L 11/12/23 16:30 132 H 12 98 11/12/23 16:20 104 H 22 91 05 16:15 110 H 14 94 11/12/23 16:15 111/52 L 24 16:10 119 H 14 93 24 16:00 109 H 22 95 0524 16:00 117/58 L 11/12/23 16:00 116 H 20 95 0524 15:50 135 H 20 95 0524 15:46 171/91 H 0524 15:46 144 H 21 97 0524 15:40 141 H 36 H 96 0524 15:30 142 H 19 24 15:20 132 H 99 24 15:17 100/57 L 11/12/23 15:17 121 H 98 05 15:10 136 H 15 95 11/12/23 15:01 152 H 44 H 96 05 15:00 153 H 60 H 92 11/12/23 14:59 37.2 C 147 H 24 97 11/12/23 14:55 95 11/12/23 14:30 110 H 13 96 05 14:20 106 H 12 95 11/12/23 14:19 90/69 L 11/12/23 14:19 117 H 22 98 11/12/23 14:15 92 H 19 99 11/12/23 14:15 85/51 L 11/12/23 14:10 93 H 18 96 11/12/23 14:09 94 H 15 96 11/12/23 14:00 98 H 21 93 11/12/23 14:00 113/68 11/12/23 13:50 98 H 21 94 11/12/23 13:45 98 H 20 95 11/12/23 13:45 115/71 11/12/23 13:40 95 H 19 96 11/12/23 13:30 101 H 19 97 11/12/23 13:30 109/76 11/12/23 13:20 103 H 14 96 11/12/23 13:15 109 H 22 96 11/12/23 13:15 124/86 11/12/23 13:11 147 H 17 95 11/12/23 13:00 109/81 11/12/23 13:00 102 H 14 97 11/12/23 12:56 106 H 20 97 11/12/23 12:52 104 H 20 122/83 97 05 12:50 110 H 16 95 11/12/23 12:45 121 H 15 98 11/12/23 12:45 122/83 05 12:40 127 H 11 L 98 11/12/23 12:34 132 H 11/12/23 12:30 138/109 H 11/12/23 12:30 137 H 9 L 98 11/12/23 12:28 125 H 10 L 98 11/12/23 12:17 37.0 C 141 H 20 112/79 97 O2 Del Method 11/12/23 19:20 11/12/23 19:15 11/12/23 19:15 11/12/23 19:10 11/12/23 19:00 11/12/23 19:00 11/12/23 18:50 11/12/23 18:46 Room Air 11/12/23 18:45 11/12/23 18:45 11/12/23 18:40 11/12/23 18:30 11/12/23 18:30 11/12/23 18:20 11/12/23 18:16 11/12/23 18:16 11/12/23 18:10 11/12/23 18:00 11/12/23 18:00 11/12/23 17:51 11/12/23 17:45 11/12/23 17:45 11/12/23 17:40 11/12/23 17:30 11/12/23 17:30 11/12/23 17:20 11/12/23 17:15 11/12/23 17:15 11/12/23 17:13 11/12/23 17:00 11/12/23 17:00 11/12/23 16:59 11/12/23 16:50 11/12/23 16:45 11/12/23 16:45 11/12/23 16:40 11/12/23 16:30 11/12/23 16:30 11/12/23 16:20 11/12/23 16:15 11/12/23 16:15 11/12/23 16:10 11/12/23 16:00 11/12/23 16:00 11/12/23 16:00 Room Air 11/12/23 15:50 11/12/23 15:46 11/12/23 15:46 11/12/23 15:40 11/12/23 15:30 11/12/23 15:20 11/12/23 15:17 11/12/23 15:17 11/12/23 15:10 11/12/23 15:01 11/12/23 15:00 11/12/23 14:59 Room Air 11/12/23 14:55 11/12/23 14:30 11/12/23 14:20 11/12/23 14:19 11/12/23 14:19 11/12/23 14:15 11/12/23 14:15 11/12/23 14:10 11/12/23 14:09 Room Air 11/12/23 14:00 11/12/23 14:00 11/12/23 13:50 11/12/23 13:45 11/12/23 13:45 11/12/23 13:40 11/12/23 13:30 11/12/23 13:30 11/12/23 13:20 11/12/23 13:15 11/12/23 13:15 11/12/23 13:11 11/12/23 13:00 11/12/23 13:00 11/12/23 12:56 Room Air 11/12/23 12:52 Room Air 11/12/23 12:50 11/12/23 12:45 11/12/23 12:45 11/12/23 12:40 11/12/23 12:34 11/12/23 12:30 11/12/23 12:30 11/12/23 12:28 11/12/23 12:17 Room Air Laboratory Results Abnormal lab results 11/12/23 11/12/23 11/12/23 Range/Units 12:35 12:45 13:00 WBC 15.14 H (4.8-10.8) K/ul Plt Count 425 H (130-400) K/uL Neut # (Auto) 10.58 H (1.40-6.50) K/uL [place] # (Auto) 1.16 H (0.11-0.59) K/uL VBG pH 7.53 H (7.36-7.41) Sodium (136-145) mmol/L Potassium 2.8 L (3.5-5.1) mmol/L Chloride 92 L (98-107) mmol/L Anion Gap 15 H (3-11) Glucose 47 L* (70-99(Fasting)) mg/dl POC Glucose (70-99) mg/dl Lactate 2.2 H* (0.4-2.0) mmol/L Calcium 10.4 H (8.6-10.3) mg/dl Phosphorus (2.5-4.9) mg/dl Total Bilirubin 1.1 H (0.2-1.0) mg/dl Alkaline Phosphatase 111 H (34-104) U/L Total Protein 8.5 H (6.0-8.3) gm/dl Albumin 5.1 H (3.4-5.0) gm/dl 11/12/23 11/12/23 11/12/23 Range/Units 14:04 14:28 15:15 WBC (4.8-10.8) K/ul Plt Count (130-400) K/uL Neut # (Auto) (1.40-6.50) K/uL [place] # (Auto) (0.11-0.59) K/uL VBG pH (7.36-7.41) Sodium (136-145) mmol/L Potassium (3.5-5.1) mmol/L Chloride (98-107) mmol/L Anion Gap (3-11) Glucose (70-99(Fasting)) mg/dl POC Glucose 159 H 287 H (70-99) mg/dl Lactate 2.1 H* (0.4-2.0) mmol/L Calcium (8.6-10.3) mg/dl Phosphorus (2.5-4.9) mg/dl Total Bilirubin (0.2-1.0) mg/dl Alkaline Phosphatase (34-104) U/L Total Protein (6.0-8.3) gm/dl Albumin (3.4-5.0) gm/dl 11/12/23 11/12/23 11/12/23 Range/Units 16:38 18:46 18:52 WBC (4.8-10.8) K/ul Plt Count (130-400) K/uL Neut # (Auto) (1.40-6.50) K/uL [place] # (Auto) (0.11-0.59) K/uL VBG pH (7.36-7.41) Sodium 131 L (136-145) mmol/L Potassium (3.5-5.1) mmol/L Chloride 94 L (98-107) mmol/L Anion Gap 14 H (3-11) Glucose 554 H* (70-99(Fasting)) mg/dl POC Glucose 487 H* (70-99) mg/dl Lactate 5.3 H* (0.4-2.0) mmol/L Calcium 8.5 L (8.6-10.3) mg/dl Phosphorus 2.2 L (2.5-4.9) mg/dl Total Bilirubin (0.2-1.0) mg/dl Alkaline Phosphatase (34-104) U/L Total Protein (6.0-8.3) gm/dl Albumin (3.4-5.0) gm/dl Diagnostic Findings KUB HISTORY: Acute generalized abdominal pain with nausea and vomiting abdominal pain; vomiting COMPARISON: 10/29/2023 FINDINGS: Cholecystectomy. The left abdomen is excluded from the [id number]. Noncontrasted bowel gas pattern. Chronic left pelvic basin calcifications. No renal calculi. No ureteral calculi. No pneumoperitoneum or pneumatosis. No fracture. IMPRESSION: 1. Limited exam secondary to positioning. The left abdomen is excluded from the [id number]. 2. Nonobstructive bowel gas pattern. ABDOMEN AND PELVIS CT WITH IV CONTRAST CT DOSE: 826.05 mGy.cm HISTORY: Acute generalized abdominal pain with nausea and vomiting abdominal pain; vomiting TECHNIQUE: Multiaxial CT images of the abdomen and pelvis were performed following the IV administration of 93 cc of Optiray, A dose lowering technique was utilized adhering to the principles of ALARA. COMPARISON STUDY: 05/24/2023 FINDINGS: The lung bases are clear. Cholecystectomy. The mildly enlarged liver, spleen, pancreas, kidneys, and adrenal glands are within normal limits. There is no bowel obstruction. There is mild diffuse wall thickening of the large bowel partial distention. The visualized appendix appears noninflamed. The pelvic organs are unremarkable. Unchanged benign-appearing lucent lesion of the left ischial tuberosity. Chronic L3 compression deformity. IMPRESSION: 1. No bowel obstruction or pneumoperitoneum. 2. No CT evidence of acute appendicitis. 3. Cholecystectomy. 4. Mild diffuse wall thickening of the large bowel may be secondary to partial distention versus a mild nonspecific colitis. Medications Administered ER Medications Given: Normal saline 2 L bolus Compazine 10 mg IV Diphenhydramine 50 mg IV Toradol 30 mg IV Dextrose 50 mL IV Potassium chloride 10 mEq IV x 2 Normal saline @ 150ml/hr Fentanyl 25 mcg IV ECG Rate (beats per minute): 100 Rhythm: normal sinus Findings: no acute ischemic change Comparison ECG Date: from (September 14, 2023) Change: the following changes noted (TWI no longer present in anterior leads) Code Status & VTE Plan Code Status Full VTE Prophylaxis Plan VTE Prophylaxis will be ordered: Yes PG Care Time/CCT Total # of Minutes Spent Total Time Spent with Patient: Total time spent is greater than 50% in coordination of care (as documented) at patient's floor/unit and/or counseling patient: Coding Level of Care Code 56120 INT INP/OBS CARE MIN Diagnoses Intractable nausea and vomiting R11.2 GERD (gastroesophageal reflux disease) K21.9 Diabetes type 1, uncontrolled E10.65 Leucocytosis D72.829 Muscle spasm M62.838 Cannabinoid hyperemesis syndrome R11.2; F12.90 Acute hypokalemia E87.6
[2023-11-12] MEDS: SODIUM CHLOR 0.45% + 20MEQ KCL 20 MEQ/1,000 ML BAG IV SCH (20:31)
[2023-11-12 20:57] LABS: Appearance Urine Clear (Clear); Bacteria Urine Automated None Seen (None Seen); Bilirubin Urine Negative (Negative); Blood Urine Negative (Negative); Cast Urine Automated 0-2 /lpf (0-2); Color Urine Yellow; Epithelial Cell Urine Auto 0-2 /hpf (0-2); Glucose Urine UA 3+ (Negative); Ketones Urine 2+ (Negative); Leukocyte Esterase Urine Negative (Negative); Nitrite Urine Negative (Negative); Protein Urine 1+ (Negative); RBC Urine Automated 0-2 /hpf (0-2); Specific Gravity Urine > 1.045 (1.000-1.030); Urobilinogen Urine Negative (Negative); WBC Urine Automated 0-5 /hpf (0-5)
[2023-11-12] MEDS ORDERED: INSULIN ASPART PER UNIT CHARGE SC SCH (21:00)
[2023-11-12 21:12] LABS: Amphetamines+Metham, Urine Pos (Neg); Barbiturates, Urine Neg (Neg); Benzodiazepine, Urine Neg (Neg); Cocaine, Urine Neg (Neg); MDMA (Ecstacy), Urine Neg (Neg); Marijuana, Urine Pos (Neg); Methadone, Urine Neg (Neg); Opiate, Urine Neg (Neg); Phencyclidine, Urine Neg (Neg)
[2023-11-12] MEDS ORDERED: ONDANSETRON INJ 2 MG/ML 2 ML VIAL IV PRN (21:30)
[2023-11-12] MEDS: INSULIN REGULAR 250 UNITS in SODIUM CHLORIDE 0.9% 247.5 ML IV SCH (22:03)
[2023-11-12] MEDS: SEVERE STRESS LEVEL ONE (22:04)
[2023-11-12] MEDS: INSULIN PROTOCOL GOAL RANGE ONE (22:05)
[2023-11-12] MEDS: INSULIN ASPART PER UNIT CHARGE SC SCH (22:05)
[2023-11-12] MEDS: PENDING D5 1/2NS+20mEq KCL IVF SCH (22:14)
[2023-11-12] MEDS: diazePAM 5 MG/ML 10ML VIAL IV STA (22:14)
[2023-11-12] MEDS ORDERED: GLUCOSE 10 TAB/TUBE PO PRN (22:30)
[2023-11-12] MEDS ORDERED: GLUCAGON FOR INJ 1 MG VIAL SQ PRN (22:30)
[2023-11-12] MEDS ORDERED: GLUCOSE 40% GEL 15 GM TUBE PO PRN (22:30)
[2023-11-12] MEDS ORDERED: DEXTROSE 50% 50 ML SYRINGE IV PRN (22:30)
[2023-11-12] MEDS ORDERED: PROMETHAZINE HCL 12.5 MG in SODIUM CHLORIDE 0.9% 50 ML IV PRN (22:32)
[2023-11-12 23:30] LABS: BUN Creatinine Ratio 18.6 (10-20); Calcium 8.7 mg/dl (8.6-10.3); Creatinine Clr Calc Pharmacy 98.5 ml/min; Est GFR (African American) 87.5 ml/min; Est GFR (Non-African American) 75.5 ml/min; Magnesium 1.7 mg/dl (1.7-2.4); Potassium 3.7 mmol/L (3.5-5.1)
[2023-11-13] MEDS: ACETAMINOPHEN 1,000 MG/100 ML VIAL IV STA (00:14)
[2023-11-13 02:53] LABS: BUN Creatinine Ratio 17.5 (10-20); Calcium 8.8 mg/dl (8.6-10.3); Creatinine Clr Calc Pharmacy 105.9 ml/min; Est GFR (African American) 95.5 ml/min; Est GFR (Non-African American) 82.4 ml/min; Magnesium 1.8 mg/dl (1.7-2.4); Phosphorus 2.7 mg/dl (2.5-4.9); Potassium 3.9 mmol/L (3.5-5.1)
[2023-11-13] MEDS ORDERED: Nursing to Pharmacy Communication SCH (04:15)
[2023-11-13] MEDS: D5W AND 1/2NSS + 20MEQ KCL 20 MEQ/1,000 ML BAG IV SCH (04:26)
[2023-11-13 07:22] LABS: Calcium 9.3 mg/dl (8.6-10.3); Creatinine Clr Calc Pharmacy 100.3 ml/min; Est GFR (African American) 90.9 ml/min; Est GFR (Non-African American) 78.4 ml/min; Phosphorus 1.8 mg/dl (2.5-4.9); Potassium 3.8 mmol/L (3.5-5.1)
[2023-11-13 07:42] LABS: Basophils # (auto) 0.06 K/uL (0.00-0.20); Basophils % (auto) 0.5 %; Eosinophils # (auto) 0.01 K/uL (0.00-0.50); Eosinophils % (auto) 0.1 %; Hematocrit (blood only) 38.7 % (42.0-52.0); Hemoglobin 12.7 g/dl (14.0-18.0); Immature Granulocytes # (auto) 0.09 K/uL (0.01-0.20); Immature Granulocytes % (auto) 0.7 %; Lymphocytes # (auto) 1.38 K/uL (1.20-3.40); Lymphocytes % (auto) 10.4 %; Mean Corpuscular Hemoglobin 29.8 pg (25.0-34.0); Mean Corpuscular Hgb Conc 32.8 g/dL (32.0-36.0); Mean Corpuscular Volume 90.8 fL (80.0-100.0); Mean Platelet Volume 9.8 fL (9.4-12.4); Monocytes # (auto) 1.43 K/uL (0.11-0.59); Monocytes % (auto) 10.8 %; Neutrophils # (auto) 10.24 K/uL (1.40-6.50); Neutrophils % (auto) 77.5 %; Platelet Count 314 K/uL (130-400); RDW Coefficient of Variation 13.2 % (11.5-14.5); RDW Standard Deviation 43.2 fL (36.4-46.3); Red Blood Count 4.26 M/uL (4.70-6.10); White Blood Count 13.21 K/ul (4.8-10.8)
[2023-11-13] MEDS: FAMOTIDINE 20MG IV PUSH 20 MG/5 ML SYR IV SCH (07:56)
--- NOTE | 2023-11-13 08:00 | XRay Report ---
XR chest 1V portable HISTORY: 28 years-old Male DKA ?PNA acute shortness of breath COMPARISON: 10/29/2023 TECHNIQUE: AP view of the chest FINDINGS: Cardiomediastinal and hilar silhouettes are within normal limits. No pneumothorax, pleural effusion, airspace consolidation or pulmonary edema. The bones of the chest appear grossly intact. IMPRESSION: No acute process. ACT 112: Negative or not required by law. The above report was generated using voice recognition software. It may contain grammatical, syntax o r spelling errors. Electronically signed by: Hu Sorto M.D. 11/13/2023 7:58 AM
--- NOTE | 2023-11-13 08:48 | Electrocardiogram Report ---
Test Reason : Blood Pressure : / mmHG Vent. Rate : 100 BPM Atrial Rate : 100 BPM P-R Int : 136 ms QRS Dur : 098 ms QT Int : 370 ms P-R-T Axes : 072 068 079 degrees QTc Int : 477 ms Normal sinus rhythm Normal ECG When compared with ECG of 14-SEP-2023 15:12, Incomplete right bundle branch block is no longer Present Confirmed by Garrison Smith ([id number]) on 11/13/2023 8:48:37 AM Referred By: REFERRED SELF Confirmed By:Garrison Smith
--- NOTE | 2023-11-13 08:57 | Hospitalist Progress Note ---
Date of Service November 13, 2023 Assessment & Plan (1) Intractable nausea and vomiting: Plan: Currently controlled. Patient reports no n/v over night Hx of cannabis hyperemesis syndrome, diabetic gastroparesis Ondansetron 1st line Phenergan 12.5mg 2nd line Very dehydrated on exam - will utilize IV fluids DKA protocol Continues on insulin gtt Monitor K and Mg Urine drug screen (2) Elevated lactic acid level: Plan: Most likely secondary to DKA BC X 2 are pending Patient does not appear septic Allergic to cephalosporins. Will empirically start him on Levofloxacin and get UA. Follow repat labs in the morning Anion gap is closing. Hopefully lactate levels improve (3) Hypophosphatemia: Plan: K/Phos 30 mmol IV Follow serial labs (4) GERD (gastroesophageal reflux disease): Plan: Pantoprazole 40mg IV daily, famotidine 20mg IV daily (5) Diabetes type 1, uncontrolled: Plan: Anion gap max of 22 this morning. Now closing and at 12 Previous insulin puymp at home but has not used it for the past 4 months. Reports use of Lantus and novolog Follows with Dr. Rdz with Endocrinology Continue hyperglycemia insulin IV drip If gtt is stopped, advance diet and cover for carb intake Continue q4h labs (6) Leucocytosis: Plan: Historically this has resolved with stress of vomiting as cause Procalcitonin negative Follow up blood cultures - also historically negative CXR with no pneumonia UA non infective appearing If spikes a temp could consider dental caries as source and cover empirically Due to elevated lacatate, Levofloxacin started empirically. This can be stopped if BC and Urine Cx are negative (7) Muscle spasm: Plan: Suspect due to electrolytes imbalance and active nausea and vomiting Should resolve - this is not unusual for his episodes Will give diazepam 2mg IV now and monitor (8) Cannabinoid hyperemesis syndrome: (9) Acute hypokalemia: Plan VTE Prophylaxis - low risk Diet - NPO Disposition - admit to PCU Admission and Anticipated Discharge Date Admission Date: November 12, 2023 Subjective Attending: Dr. Becker This is a 28-year-old male with uncontrolled type I diabetes admitted yesterday afternoon for intractable nausea and vomiting. Glucose was greater than 500 and patient was placed on an insulin drip. Lactate was 5.3 on admission and is now 10.4. BC X 2 are pending. Currently not receiving abx. WBC 15.4 on admission and now 13.21 Phos is 1.8 Tachycardic at 144. BP 123/69 Co2 15 mmol. Patient SpO2 96% room air Patient reports no fever. Ongoing spasms of the back and right arm. Has difficulty sitting upright. Was able to reposition without assistance with bed flat. No n/v/d. No other acute complaints Review of Systems 2 Review of Systems: A total of 10 systems was reviewed and is negative other than as listed in the HPI Physical Exam 2 Physical Exam: GENERAL : No acute distress. Appears weak. Noted spasm of right arm during examination EYES: No icterus, gaze conjugate NOSE: No evidence of epistaxis MOUTH: No lesions or candidiasis NECK: Supple LUNGS: CTA B/L, no wheezes, rales or rhonchi. Poor inspirational effort. Good cough HEART: Regular, rate controlled ABDOMEN: Soft, NT, ND, BS Present EXTREMITIES: No LE edema, pedal pulses intact NEURO: A&OX3 Results & Data Results & Data Vital Signs (Past 12 Hours) Vital Signs Temp Pulse Pulse Resp BP BP Pulse Ox 11/13/23 07:36 144 H 11/13/23 07:36 11/13/23 07:17 36.8 C 130 H 18 123/69 96 11/13/23 04:00 37.2 C 115 H 17 122/72 96 11/12/23 23:53 107 H 11/12/23 22:24 37.0 C 117 H 15 120/66 97 O2 Del Method 11/13/23 07:36 11/13/23 07:36 Room Air 11/13/23 07:17 Room Air 11/13/23 04:00 Room Air 11/12/23 23:53 11/12/23 22:24 Room Air Laboratory Results 11/13/23 06:35 11/13/23 06:32 Diagnostic Findings KUB X-Ray 11/12/23 14:13 KUB HISTORY: Acute generalized abdominal pain with nausea and vomiting abdominal pain; vomiting COMPARISON: 10/29/2023 FINDINGS: Cholecystectomy. The left abdomen is excluded from the [id number]. Noncontrasted bowel gas pattern. Chronic left pelvic basin calcifications. No renal calculi. No ureteral calculi. No pneumoperitoneum or pneumatosis. No fracture. IMPRESSION: 1. Limited exam secondary to positioning. The left abdomen is excluded from the [id number]. 2. Nonobstructive bowel gas pattern. ACT 112: Negative or not required by law. The above report was generated using voice recognition software. It may contain grammatical, syntax or spelling errors. Electronically signed by: Hu Sorto M.D. 11/12/2023 2:52 PM Abdomen/Pelvis CT 11/12/23 14:[address] WITH IV CONTRAST CT DOSE: 826.05 mGy.cm HISTORY: Acute generalized abdominal pain with nausea and vomiting abdominal pain; vomiting TECHNIQUE: Multiaxial CT images of the abdomen and pelvis were performed following the IV administration of 93 cc of Optiray, A dose lowering technique was utilized adhering to the principles of ALARA. COMPARISON STUDY: 05/24/2023 FINDINGS: The lung bases are clear. Cholecystectomy. The mildly enlarged liver, spleen, pancreas, kidneys, and adrenal glands are within normal limits. There is no bowel obstruction. There is mild diffuse wall thickening of the large bowel partial distention. The visualized appendix appears noninflamed. The pelvic organs are unremarkable. Unchanged benign-appearing lucent lesion of the left ischial tuberosity. Chronic L3 compression deformity. IMPRESSION: 1. No bowel obstruction or pneumoperitoneum. 2. No CT evidence of acute appendicitis. 3. Cholecystectomy. 4. Mild diffuse wall thickening of the large bowel may be secondary to partial distention versus a mild nonspecific colitis. ACT 112: Negative or not required by law. The above report was generated using voice recognition software. It may contain grammatical, syntax or spelling errors. Electronically signed by: Hu Sorto M.D. 11/12/2023 5:27 PM L Chest X-Ray 11/12/23 19:54 XR chest 1V portable HISTORY: 28 years-old Male DKA ?PNA acute shortness of breath COMPARISON: 10/29/2023 TECHNIQUE: AP view of the chest FINDINGS: Cardiomediastinal and hilar silhouettes are within normal limits. No pneumothorax, pleural effusion, airspace consolidation or pulmonary edema. The bones of the chest appear grossly intact. IMPRESSION: No acute process. ACT 112: Negative or not required by law. The above report was generated using voice recognition software. It may contain grammatical, syntax or spelling errors. Electronically signed by: Hu Sorto M.D. 11/13/2023 7:58 AM PG Care Time/CCT Total # of Minutes Spent Total Time Spent with Patient: Total time spent is greater than 50% in coordination of care (as documented) at patient's floor/unit and/or counseling patient: Coding Level of Care Code 28963 SUB INP/OBS CARE 2/35MIN Diagnoses Intractable nausea and vomiting R11.2 Elevated lactic acid level R79.89 Hypophosphatemia E83.39 GERD (gastroesophageal reflux disease) K21.9 Diabetes type 1, uncontrolled E10.65 Leucocytosis D72.829 Muscle spasm M62.838 Cannabinoid hyperemesis syndrome R11.2; F12.90 Acute hypokalemia E87.6 Time Spent (min) 40 Comment Including 2 visits and extensive chart review, d/w RN and staff
--- NOTE | 2023-11-13 09:32 | Pharmacy Report ---
Pharmacy Glycemic Short Note 2 - Date of Service November 13, 2023 - Glycemic Short BSG Results (Last 24 hours): 11/12/23 11/12/23 11/12/23 12:35 14:04 15:15 Glucose 47 L* POC Glucose 159 H 287 H 11/12/23 11/12/23 11/12/23 18:46 18:52 20:28 Glucose 554 H* POC Glucose 487 H* 520 H* 11/12/23 11/12/23 11/12/23 22:01 22:43 23:04 Glucose 548 H* POC Glucose 535 H* 484 H* 11/13/23 11/13/23 11/13/23 00:09 01:08 02:04 Glucose POC Glucose 287 H 385 H* 314 H* 11/13/23 11/13/23 11/13/23 02:14 03:07 04:03 Glucose 291 H POC Glucose 284 H 218 H 11/13/23 11/13/23 11/13/23 05:03 06:03 06:32 Glucose 212 H POC Glucose 170 H 215 H 11/13/23 11/13/23 11/13/23 07:09 08:05 09:04 Glucose POC Glucose 189 H 166 H 194 H OUTPATIENT ANTIDIABETIC REGIMEN: * Lantus 45 units SQ HS * NovoLog with meals * A1c 8.3% 09/15/23 ASSESSMENT: * 28 yo M Type 1 DM, with hyperglycemia d/t intractable N/V, on insulin drip. D51/2NS + 20meq K running at 200cc/hr. * Phos 1.5 - KPhos 30mmol IV given, improved to 2.5. * AG 19 CO2 16 K 4.4 this morning --> AG 12 CO2 21 K 3.8 @ 1400 check. * Insulin drip on hold since 1200, pt was hungry and ate lunch. This was not covered with scheduled NovoLog insulin so BSG up to 246mg/dl. * Restart insulin drip and overlap with Lantus and transition to basal bolus insulin SQ this evening. PLAN FOR INPATIENT GLYCEMIC CONTROL: * IV insulin infusion * goal range 150-250mg/dl --> changed to 110-200mg/dl * Current rate: 2.4 units/hr --> 0 units/hr at 1200, restart at 2 units/hr at 1445, overlap with Lantus * DC insulin drip when calculator places it on hold * Lantus 20 units x1 now (overlap 2-6 hours with insulin drip) * CF 35mg/dL/unit * Nutritional / Prandial insulin per carb ratio of 1 unit per 10 grams CHO consumed
[2023-11-13] MEDS ORDERED: cefTRIAXone SODIUM 2,000 MG/50 ML BAG IV SCH (09:45)
[2023-11-13 10:29] LABS: BUN Creatinine Ratio 16.5 (10-20); Calcium 9.6 mg/dl (8.6-10.3); Est GFR (African American) 100.5 ml/min; Est GFR (Non-African American) 86.7 ml/min; Potassium 4.4 mmol/L (3.5-5.1)
[2023-11-13] MEDS: POTASSIUM PHOSPHATE 30 MMOL in SODIUM CHLORIDE 0.9% 500 ML IV ONE (10:40)
[2023-11-13] MEDS: levoFLOXacin/D5W 750 MG/150 ML BAG IV SCH (10:41)
[2023-11-13 10:48] LABS: Magnesium 1.9 mg/dl (1.7-2.4); Phosphorus 1.5 mg/dl (2.5-4.9)
[2023-11-13] MEDS: PANTOprazole 40 MG in SYRINGE 0 ML IV SCH (12:30)
[2023-11-13 12:37] LABS: Appearance Urine Cloudy (Clear); Bacteria Urine Automated None Seen (None Seen); Bilirubin Urine Negative (Negative); Blood Urine Negative (Negative); Cast Urine Automated 0-2 /lpf (0-2); Color Urine Yellow; Epithelial Cell Urine Auto 0-2 /hpf (0-2); Glucose Urine UA 3+ (Negative); Ketones Urine 3+ (Negative); Leukocyte Esterase Urine Negative (Negative); Nitrite Urine Negative (Negative); Protein Urine 2+ (Negative); RBC Urine Automated 0-2 /hpf (0-2); Specific Gravity Urine 1.032 (1.000-1.030); Urobilinogen Urine Negative (Negative); WBC Urine Automated 0-5 /hpf (0-5); pH Urine 5.5 (4.5-7.5)
[2023-11-13] MEDS: INSULIN ASPART PER UNIT CHARGE SC SCH (14:13)
[2023-11-13 14:26] LABS: BUN Creatinine Ratio 13.4 (10-20); Calcium 8.2 mg/dl (8.6-10.3); Creatinine Clr Calc Pharmacy 105.4 ml/min; Est GFR (African American) 96.4 ml/min; Est GFR (Non-African American) 83.2 ml/min; Magnesium 1.7 mg/dl (1.7-2.4); Phosphorus 2.5 mg/dl (2.5-4.9); Potassium 3.8 mmol/L (3.5-5.1)
[2023-11-13] MEDS: LANTUS PER UNIT CHARGE SC ONE (15:00)
[2023-11-13] MEDS: SODIUM CHLOR 0.45% + 20MEQ KCL 20 MEQ/1,000 ML BAG IV SCH (20:49)
[2023-11-14] MEDS: INSULIN ASPART PER UNIT CHARGE SC SCH (00:24)
[2023-11-14] MEDS: CARBOHYDRATES FOR HYPOGLYCEMIA PO PRN (04:07)
[2023-11-14 09:48] LABS: Calcium 9.1 mg/dl (8.6-10.3); Magnesium 1.8 mg/dl (1.7-2.4); Potassium 3.6 mmol/L (3.5-5.1)
[2023-11-14 09:54] LABS: BUN Creatinine Ratio 10.1 (10-20); Creatinine Clr Calc Pharmacy 130.3 ml/min; Est GFR (African American) 120.5 ml/min; Est GFR (Non-African American) 103.9 ml/min
--- NOTE | 2023-11-14 14:11 | Pharmacy Report ---
Pharmacy Glycemic Short Note 2 - Date of Service November 14, 2023 - Glycemic Short BSG Results (Last 24 hours): 11/13/23 11/13/23 11/13/23 13:53 14:53 16:09 Glucose 246 H POC Glucose 259 H 156 H 11/13/23 11/13/23 11/13/23 17:49 18:44 19:56 Glucose POC Glucose 162 H 178 H 131 H 11/14/23 11/14/23 11/14/23 00:12 04:00 04:13 Glucose 57 L POC Glucose 165 H 58 L* 11/14/23 11/14/23 11/14/23 04:23 06:00 08:06 Glucose POC Glucose 72 167 H 183 H 11/14/23 12:00 Glucose POC Glucose 111 H OUTPATIENT ANTIDIABETIC REGIMEN: * Lantus 45 units SQ HS * NovoLog with meals * A1c 8.3% 09/15/23 ASSESSMENT: 11/13 * Patient transitioned off insulin drip last evening, received 20 units of basal. Very minimal PO intake documented yesterday. BSGs trending down overnight - 58 mg/dL - PO intake a little better this morning. Will scale back slightly with basal for this evening and decrease to 18 units. 11/12 * 28 yo M Type 1 DM, with hyperglycemia d/t intractable N/V, on insulin drip. D51/2NS + 20meq K running at 200cc/hr. * Phos 1.5 - KPhos 30mmol IV given, improved to 2.5. * AG 19 CO2 16 K 4.4 this morning --> AG 12 CO2 21 K 3.8 @ 1400 check. * Insulin drip on hold since 1200, pt was hungry and ate lunch. This was not covered with scheduled NovoLog insulin so BSG up to 246mg/dl. * Restart insulin drip and overlap with Lantus and transition to basal bolus insulin SQ this evening. PLAN FOR INPATIENT GLYCEMIC CONTROL: * Lantus * decrease to Lantus 18 units daily * Novolog * Continue same - ACHS / goal 110-140 / CR 35 / CR 10
[2023-11-14] MEDS: ACETAMINOPHEN 500 MG TAB PO PRN (14:40)
--- NOTE | 2023-11-14 15:12 | Discharge Summary ---
Discharge Summary Date of Service November 14, 2023 Notes For Next Care Provider ADmitted for nausea and vomiting with elevated BS - resolved with IV fluids and blood sugar control. Outpatient follow up with endocrinology scheduled for next week. Continue with 45 units lantus and novolog sliding scale (prescriptions sent) Blood cultures pending - no growth at 24hr at discharge Admission HPI Per Admitting Provider Luis Tijerina is a 28 year old male with T1DM, history of cocaine and opiate use, gastroparesis and cannabis hyperemesis who presents to the ER with generalized myalgias, abdominal pain, nausea and vomiting. He reports symptoms started yesterday evening. He reports taking his basal insulin 45 units last night. Last took short acting insulin 12 units at lunch time. He reports this is simlar to his prior hospitalizations. No fever, chills, recent respiratory or urinary symptoms. He denies any illicit drug use including cannabis although this is usually the case even when his urine drug screen is always positive for cannabis or occasionally cocaine. He feels his whole body is having a muscle spasm. Principal Dx & Hospital Course #1 = Principal Diagnosis (1) Intractable nausea and vomiting: Hx of cannabis hyperemesis syndrome, diabetic gastroparesis Resolved with IV hydration and blood sugar control electrolytes stable UDS + amphetamines and THC (2) Diabetes type 1, uncontrolled: Withe elevated anion gap and lactic acid Improved with IV fluids and DKA protocol - has not been using pump, prescriptions sent in for Novolog and Lantus - outpatient endocrinology follow up arranged for next week, encouraged patient complaince (3) GERD (gastroesophageal reflux disease): continue home protonix at discharge (4) Leucocytosis: Historically this has resolved with stress of vomiting as cause Procalcitonin negative Follow up blood cultures - also historically negative CXR with no pneumonia UA non infective appearing was started on levofloxacin empirically, but patient remains afebrile with negative cultures so will not conitnue at discharge (5) Muscle spasm: Suspect due to electrolytes imbalance and active nausea and vomiting Improved (6) Cannabinoid hyperemesis syndrome: hx of such Plan Discharge to home with outpatient endocrinology follow up disucssed case with family living educator Discharge Exam General: NAD, VS as above Resp: normal respiratory effort, lungs clear to auscultation CV: RRR, no murmur, Abd: normal bowel sounds, non tender, no hepatosplenomegaly Extremities: Moves all extremities, no edema Neuro: A&O x3, Skin: intact, no lesions noted Updated Medication List Medication Instructions Recorded Confirmed Type blood sugar diagnostic (Contour #[id number] ea 08/06/21 11/10/22 Rx Next Test Strips) glucagon 3 mg/actuation nasal 3 mg intranasal DIRECTED PRN 11/02/21 11/12/23 Rx spray (Baqsimi) Hypoglycemia #2 ea insulin aspart U-100 100 unit/mL 0 unit continuous subcutaneous 07/31/23 11/12/23 History subcutaneous solution infusion CONTINOUS pantoprazole 40 mg tablet,delayed 40 mg PO DAILY PRN GERD 10/29/23 11/12/23 History release insulin aspart U-100 100 unit/mL See Rx Instructions .Route 11/14/23 Rx subcutaneous solution (Novolog .COMPLEX #10 mL U-100 Insulin aspart) insulin glargine 100 unit/mL 45 unit (0.45 mL) subcut PM #10 mL 11/14/23 Rx subcutaneous solution (Lantus U-100 Insulin) pen needle, diabetic 32 gauge x #100 ea 11/14/23 Rx 32" (Pen Needle) Hospital Stay Data Consultations 11/12/23 17:56 ED Decision to Admit Stat Diagnostic Imagining Performed KUB X-Ray 11/12/23 14:13 KUB HISTORY: Acute generalized abdominal pain with nausea and vomiting abdominal pain; vomiting COMPARISON: 10/29/2023 FINDINGS: Cholecystectomy. The left abdomen is excluded from the [id number]. Noncontrasted bowel gas pattern. Chronic left pelvic basin calcifications. No renal calculi. No ureteral calculi. No pneumoperitoneum or pneumatosis. No fracture. IMPRESSION: 1. Limited exam secondary to positioning. The left abdomen is excluded from the [id number]. 2. Nonobstructive bowel gas pattern. ACT 112: Negative or not required by law. The above report was generated using voice recognition software. It may contain grammatical, syntax or spelling errors. Electronically signed by: Hu Sorot M.D. 11/12/2023 2:52 PM Abdomen/Pelvis CT 11/12/23 14:[address] WITH IV CONTRAST CT DOSE: 826.05 mGy.cm HISTORY: Acute generalized abdominal pain with nausea and vomiting abdominal pain; vomiting TECHNIQUE: Multiaxial CT images of the abdomen and pelvis were performed following the IV administration of 93 cc of Optiray, A dose lowering technique was utilized adhering to the principles of ALARA. COMPARISON STUDY: 05/24/2023 FINDINGS: The lung bases are clear. Cholecystectomy. The mildly enlarged liver, spleen, pancreas, kidneys, and adrenal glands are within normal limits. There is no bowel obstruction. There is mild diffuse wall thickening of the large bowel partial distention. The visualized appendix appears noninflamed. The pelvic organs are unremarkable. Unchanged benign-appearing lucent lesion of the left i schial tuberosity. Chronic L3 compression deformity. IMPRESSION: 1. No bowel obstruction or pneumoperitoneum. 2. No CT evidence of acute appendicitis. 3. Cholecystectomy. 4. Mild diffuse wall thickening of the large bowel may be secondary to partial distention versus a mild nonspecific colitis. ACT 112: Negative or not required by law. The above report was generated using voice recognition software. It may contain grammatical, syntax or spelling errors. Electronically signed by: Hu Sorto M.D. 11/12/2023 5:27 PM Chest X-Ray 11/12/23 19:54 XR chest 1V portable HISTORY: 28 years-old Male DKA ?PNA acute shortness of breath COMPARISON: 10/29/2023 TECHNIQUE: AP view of the chest FINDINGS: Cardiomediastinal and hilar silhouettes are within normal limits. No pneumothorax, pleural effusion, airspace consolidation or pulmonary edema. The bones of the chest appear grossly intact. IMPRESSION: No acute process. ACT 112: Negative or not required by law. The above report was generated using voice recognition software. It may contain grammatical, syntax or spelling errors. Electronically signed by: Hu Sorto M.D. 11/13/2023 7:58 AM Pending Results Patient Have Any Pending Studies at Discharge: Yes (blood cultures ) Discharge Instructions Given to Patient (Per Discharging Provider) Luis, You were hospitalized after having muscle spasms and nausea and vomiting, thankfully your symptoms have resolved. This was likely due to electrolyte imbalance and elevated blood sugars. It is important that you continue to monitor your blood sugars at home and follow up with endocrinology. We did not find any source of infection, and there for antibiotics were not continued. If you develop fever or chills please call your PCP or return to the ER. Would recommend cessation of cannabis use. Please follow up with your PCP within 7-10 days of discharge. Total Time Total Time Spent Total Time Spent (In Minutes): Time spend day of discharge 35 minutes including direct patient care, medication reconciliation, documentation, review of labs and images, and coordination of care. Coding Level of Care Code 86715 INP/OBS DISCH >30 MIN Diagnoses Intractable nausea and vomiting R11.2 Diabetes type 1, uncontrolled E10.65 GERD (gastroesophageal reflux disease) K21.9 Leucocytosis D72.829 Muscle spasm M62.838 Cannabinoid hyperemesis syndrome R11.2; F12.90
[2023-11-14] MEDS ORDERED: LANTUS PER UNIT CHARGE SC SCH (18:00)
[2023-11-16 17:02] LABS: Amphetamine Urine, Confirm 277 ng/mL (<250); Marijuana Quant, GCMS Urine 185 ng/mL (<5); Methamphetamine, Ur Confirm 1040 ng/mL (<250)
== END 2023-11-14 15:48 | disposition home or self-care (01) | DRG 392 ==
LOC: ED 12:08 → 4W 18:58 → SUATTDRO 18:58 → 4W 20:48